=== PATIENT | male | born 1950 | race Caucasian/White ===

== ENCOUNTER → 2019-12-14 08:49 | Outpatient (BNVA) | payer MEDICARE, SELFPAY | PROVIDERS: PCP Nurse Practitioner Family; Referring Provider Nurse Practitioner Family; Visit Provider Internal Medicine Cardiovascular Disease | DX: Z76.89 Persons encountering health services in other specified circumstances (principal) ==

== ENCOUNTER 2019-12-15 08:25 | Outpatient (REF) | payer MEDICARE, SELFPAY | END 2019-12-15 08:26 | disposition home or self-care (01) | LOC: HO.CT 08:25 | PROVIDERS: Visit Provider Internal Medicine Cardiovascular Disease | DX: Z13.89 Encounter for screening for other disorder (principal) ==

== ENCOUNTER 2019-12-15 09:50 | Outpatient (REF) | payer MEDICARE, SELFPAY ==
[2019-12-15 12:02] LABS: Blood Urea Nitrogen 22 mg/dL (9-16); Estimated Glomerular Filt Rate > 60
== END 2019-12-15 09:51 | disposition home or self-care (01) ==
LOC: HO.HMGCLDS 09:50
PROVIDERS: PCP Nurse Practitioner Family; Visit Provider Radiology Diagnostic Radiology
DX: Z13.89 Encounter for screening for other disorder (principal)
CPT/HCPCS: 82565; 84520

== ENCOUNTER → 2019-12-15 11:21 | Outpatient (REF) | payer MEDICARE, SELFPAY ==
--- NOTE | 2019-12-15 11:59 | ECG_ITS ---
Hook-up date: 2019-12-14 09:07:00 Duration: 25:50:00 Test Indications: TACHYCARDIA Medications: [id number] QRS complexes 667 Ventricular ectopics which represent <1 % of total QRS comp. 4 Supraventricular ectopics which represent <1 % of total QRS comp. * Paced QRS complexs which represent % of total QRS comp. VENTRICULAR ECTOPY 659 Isolated 0 Bigeminal Cycles 4 Couplets 0 Runs 0 Beats in Runs * Beats LONGEST at * BPM at :: -- * Beats FASTEST at * BPM at :: -- SUPRAVENTRICULAR ECTOPY 4 Isolated 0 Couplets 0 Runs 0 Beats in Runs * Beats LONGEST at * BPM at :: -- * Beats FASTEST at * BPM at :: -- HEART RATES 66 MIN at 04:35:39 2019-12-15 92 AVG 142 MAX at 20:13:15 2019-12-14 LONGEST RR 1.4080 secs at 04:35:36 2019-12-15 S-T LEVELS Channel 1 - 128 mm at 09:07:00 2019-12-14 - 128 mm at 09:07:00 2019-12-14 Channel 2 - 128 mm at 09:07:00 2019-12-14 - 128 mm at 09:07:00 2019-12-14 Channel 3 - 128 mm at 02:82:61 -- - 128 mm at 02:82:61 Underlying rhythm is sinus; Average ventricular rate 92/min; range 66-142/min; About 20% of the time, ventricular rate >100/min; Occasional ventricular ectopy; Patient diary not available for review. Referred By: Broderick Wang Overread By: IVET BRUMFIELD
== END ==
LOC: HO.CARD 11:21
PROVIDERS: Visit Provider Internal Medicine Cardiovascular Disease
DX: R00.0 Tachycardia, unspecified (principal)
CPT/HCPCS: 82565; 84520; 93225; 93226

== ENCOUNTER 2019-12-21 08:18 | Outpatient (REF) | payer MEDICARE, SELFPAY ==
--- NOTE | 2019-12-21 | CT_ITS ---
EXAMINATION: CT ANGIOGRAPHY LEGS WITH RUNOFF Interventional Radiologist: Zain Vincent M.D., F.S.I.R., F.A.C.R. CLINICAL INFORMATION: This is a 69-year-old male with abnormal ankle-brachial indices measuring 0.80 on the right and 0.82 on the left. COMPARISON: None TECHNIQUE: Routine abdominal aorta and lower extremity runoff CTA protocol with contrast was performed. 100 mL of Omnipaque 350 was administered. The images were reviewed and postprocessed on a dedicated 3-D workstation. Images were evaluated on an independent dedicated 3-D workstation and 3-D images were reconstructed with concurrent radiologist supervision and subsequently interpreted. This CT examination was performed using dose optimization techniques as appropriate, variously including the following: *Automated exposure control *Adjustment of mA and/or kV according to patient size (this includes techniques or standardized protocols for targeted exams where dose is matched to indication/reason for exam; i.e. extremities or head) *Use of iterative reconstruction technique DLP: 1033 mGy-cm. COMPARISON: Comparison is made to the noninvasive studies which demonstrate possible inflow disease. No outflow disease was demonstrated. FINDINGS: Vascular: 1. Mesenteric Arteries: There is less than 30% narrowing in the proximal celiac trunk. There is less than 30% narrowing the proximal superior mesenteric artery. There is 50% narrowing at the origin of the inferior mesenteric artery. 2. Renal Arteries: There are single bilateral renal arteries with less than 30% narrowing. The renal veins appear patent. 3. Infrarenal Abdominal Aorta :The proximal infrarenal aorta appears to be patent. There is diffuse calcified atherosclerotic disease in the distal abdominal aorta with less than 30% narrowing. 4. Common iliac arteries: There is heavy calcification at the bilateral common iliac arteries with likely bilateral hemodynamically significant 75% stenoses. The presence of the calcification decreases the sensitivity of examination. 5. Internal iliac arteries: There is diffuse moderate atherosclerotic disease throughout the hypogastric arteries bilaterally.. 5. Right Lower Extremity: External iliac artery: No hemodynamically significant stenosis. Common femoral artery: There is heavy calcification throughout the right common femoral artery with 50% narrowing. The profunda femoral artery appears small but patent. Superficial femoral artery: There is moderate calcification with 30% narrowing the proximal right superficial femoral artery. There is moderate calcification with probable 50-75% narrowing in the distal right superficial femoral artery. Popliteal artery: There is heavy calcification throughout the popliteal artery with probable 50% narrowing. Runoff vessels: There is scattered calcification throughout the tibial vessels. However, three-vessel runoff is seen throughout the right calf. It is difficult to reconstruct the distal portions of the tibial vessels. The posterior tibial artery is seen down to the level the ankle. The anterior tibial artery is seen down to the level of the distal calf. 6. Left lower extremity: External iliac artery: No hemodynamically significant stenosis. Common femoral artery: There is heavy calcific patient throughout the left common femoral artery with 50% narrowing. Superficial femoral artery: There is mild calcification with 30% narrowing the proximal left superficial femoral artery. There is heavy calcification in the distal left superficial femoral artery with probable 50% narrowing. Again, the presence of the consultation decreases the sensitivity of the study.The profunda femoral artery appears patent. Popliteal artery: There is calcification seen throughout the popliteal artery with 50% narrowing. Runoff vessels: Three-vessel runoff is seen through the left calf down to the level the ankle. The posterior tibial artery is seen down to the level the foot. The proximal anterior tibial artery appears to be patent. The proximal posterior tibial artery appears to be patent. The peroneal artery is seen to the mid calf. Nonvascular: LUNG BASES: Emphysematous changes are noted in the lower lung vance bilaterally. No large pleural effusion is seen. LIVER, GALLBLADDER, AND BILIARY TREE: There is a 1 cm low-density area within segment 2 of the liver. There is a 1 cm low-density area in segment 4A of the liver. These are too small to characterize by CT scan. No ductal dilatation is seen. . The gallbladder is unremarkable with no evidence of radiopaque gallstones, gallbladder wall thickening, or obvious pericholecystic inflammatory changes. PANCREAS: Unremarkable. SPLEEN: There is a nonspecific hyperdense 1 cm mass within the spleen. There is no precontrast images to see if this is calcification or an enhancing mass. This would be best evaluated with either a pre and post contrast-enhanced scan of the spleen or an ultrasound of the spleen. ADRENAL GLANDS: Unremarkable. KIDNEYS AND URETERS: The kidneys are normal in size, shape, and attenuation. No hydronephrosis, hydroureter, or calculi seen. No perinephric stranding BLADDER: There is a significant impression on the posterior wall of the urinary bladder by a prominent prostate gland. GASTROINTESTINAL TRACT: There is diverticulosis without evidence of diverticulitis. The appendix appears within normal limits. ABDOMINAL WALL: Multiple surgical clips are seen in the right groin region which likely represents a previous hernia repair. No hernias are seen on the current study. LYMPH NODES: Normal. PELVIC VISCERA: Unremarkable. OSSEOUS STRUCTURES: Degenerative disc disease changes are noted throughout the thoracolumbar spine. CT/CT angio abd aorta runoff IMPRESSION: 1. There are subcentimeter low-density masses within the left lobe of liver. These may represent cysts but are too small to characterize by CT scan. I recommend ultrasound evaluation. 2. There are probable hemodynamically significant stenoses within the bilateral common iliac arteries. 3. There appear to be moderate stenoses in the proximal distal superficial femoral arteries bilaterally. This disease may extend into the popliteal arteries bilaterally. 4. There is a 1 cm hyperechoic mass seen within the spleen. I recommend ultrasound evaluation.
[2019-12-21] MEDS: iohexoL 350 MG/ML 100 ML INFUS..BTL IV (09:28)
== END 2019-12-21 08:19 | disposition home or self-care (01) ==
LOC: HO.CT 08:18
PROVIDERS: PCP Nurse Practitioner Family; Visit Provider Internal Medicine Cardiovascular Disease
DX: I73.9 Peripheral vascular disease, unspecified (principal); R93.6 Abnormal findings on diagnostic imaging of limbs
CPT/HCPCS: 75635

== ENCOUNTER → 2020-01-16 14:49 | Outpatient (BNVA) | payer MEDICARE, SELFPAY | PROVIDERS: PCP Nurse Practitioner Family; Referring Provider Nurse Practitioner Family; Visit Provider Internal Medicine Cardiovascular Disease | DX: R00.0 Tachycardia, unspecified (principal); I73.9 Peripheral vascular disease, unspecified; I10 Essential (primary) hypertension; I35.0 Nonrheumatic aortic (valve) stenosis; R29.898 Other symptoms and signs involving the musculoskeletal system; Z79.82 Long term (current) use of aspirin | CPT/HCPCS: 93005; 99202 ==

== ENCOUNTER 2020-01-17 08:13 | Outpatient (REF) | payer MEDICARE, SELFPAY ==
[2020-01-17 16:39] LABS: Hematocrit 49.8 % (42-52); Hemoglobin 15.2 g/dl (14.0-18.0); Mean Corpuscular HGB Conc 30.5 g/dl (31.0-36.0); Mean Corpuscular Hemoglobin 26.6 pg (27.0-33.0); Mean Corpuscular Volume 87.1 fL (80-98); Mean Platelet Volume 10.6 fL (9.4-12.4); Platelet Count 286 X10*3/uL (160-400); Red Blood Count 5.72 X10*6/uL (4.60-5.80); Red Cell Distribution Width 15.4 % (11.0-16.0); White Blood Count 11.8 X10*3/uL (4.8-10.8)
[2020-01-17 16:48] LABS: Prothrombin Time 12.2 SEC (10.8-13.0)
[2020-01-17 17:06] LABS: Anion Gap 15 (12-20); Blood Urea Nitrogen 21 mg/dL (9-16); Calcium 8.8 mg/dL (8.4-10.2); Carbon Dioxide 24 mmol/L (22-29); Chloride 105 mmol/L (96-108); Estimated Glomerular Filt Rate > 60; Glucose Random 98 mg/dL (60-115); Potassium 4.5 mmol/l (3.3-5.1); Sodium 139 mmol/L (135-145)
== END 2020-01-17 08:14 | disposition home or self-care (01) ==
LOC: CF 08:13
PROVIDERS: Internal Medicine Cardiovascular Disease; PCP Nurse Practitioner Family; Referring Provider Nurse Practitioner Family; Visit Provider Internal Medicine Cardiovascular Disease
DX: I73.9 Peripheral vascular disease, unspecified (principal); R29.898 Other symptoms and signs involving the musculoskeletal system; I35.0 Nonrheumatic aortic (valve) stenosis; R00.0 Tachycardia, unspecified
CPT/HCPCS: 36415; 80048; 85027; 85610; 99212

== ENCOUNTER → 2020-02-02 09:44 | Outpatient (BNVA) | payer MEDICARE, SELFPAY | PROVIDERS: PCP Nurse Practitioner Family; Visit Provider Internal Medicine Cardiovascular Disease | DX: I73.9 Peripheral vascular disease, unspecified (principal); I77.0 Arteriovenous fistula, acquired; I35.0 Nonrheumatic aortic (valve) stenosis; R29.898 Other symptoms and signs involving the musculoskeletal system | CPT/HCPCS: 99212 ==

== ENCOUNTER 2020-02-29 12:55 | Outpatient (REF) | payer MEDICARE, SELFPAY ==
--- NOTE | 2020-02-29 12:58 | CT_ITS ---
EXAMINATION: CT ABDOMEN AND PELVIS WITHOUT CONTRAST CLINICAL INFORMATION: Unilateral inguinal hernia. COMPARISON: None TECHNIQUE: Multidetector volumetric imaging was performed from the superior aspect of the liver through the pubic symphysis. Sagittal and coronal reformatted images were obtained on the technologist's workstation. This CT examination was performed using dose optimization techniques as appropriate, variously including the following: *Automated exposure control *Adjustment of mA and/or kV according to patient size (this includes techniques or standardized protocols for targeted exams where dose is matched to indication/reason for exam; i.e. extremities or head) *Use of iterative reconstruction technique DLP: 857 mGy-cm FINDINGS: LUNG BASES: There is minimal atelectasis or scarring in the lingula. Otherwise lung bases are clear. The heart size is normal. There is mild mural thickening distal esophagus. LIVER, GALLBLADDER, AND BILIARY TREE: The liver is normal size, shape and position. There are two 9 mm hypodense lesions in the left hepatic lobe. No additional lesions seen. There is no intrahepatic ductal dilatation. The gallbladder is unremarkable with no evidence of radiopaque gallstones, gallbladder wall thickening, or obvious pericholecystic inflammatory changes. PANCREAS: Unremarkable. SPLEEN: No mass is seen in the spleen as was noted on the previous CTA abdomen and pelvis exam. ADRENAL GLANDS: Unremarkable. KIDNEYS AND URETERS: The kidneys are normal in size, shape, and attenuation. No hydronephrosis, hydroureter, or calculi seen. No perinephric stranding. BLADDER: The bladder is nondistended. GASTROINTESTINAL TRACT: There is diffuse sigmoid colon diverticulosis without diverticulitis. The small bowel loops are normal caliber. Appendix is normal caliber. There is no inflammatory process, free air or free fluid. ABDOMINAL WALL: There is a right inguinal hernia repair with mesh in place LYMPH NODES: Normal. VASCULAR: Unremarkable. PELVIC VISCERA: Unremarkable. OSSEOUS STRUCTURES: There are degenerative disc changes with vacuum disc phenomena L2-L3, L4-L5 and L5-S1 disc levels. No lytic process or fracture seen. There is moderate ventral and posterior spondylosis at the L5-S1 disc level. CT/CT abdomen pelvis wo con IMPRESSION: Small hypodense liver lesions most likely cysts. These are stable. Moderate constipation. Diffuse sigmoid and scattered rest of colon diverticulosis without diverticulitis. Mural thickening distal esophagus likely small hiatal hernia or reflux disease.
[2020-02-29] MEDS: Barium Sulfate Oral (Mocha) 450 ML ORAL.SUSP 900 ML PO (16:01)
== END 2020-02-29 12:56 | disposition home or self-care (01) ==
LOC: HO.CT 12:55
PROVIDERS: PCP Nurse Practitioner Family; Visit Provider Nurse Practitioner Family
DX: K40.91 Unilateral inguinal hernia, without obstruction or gangrene, recurrent (principal)
CPT/HCPCS: 74176

== ENCOUNTER → 2020-03-05 08:15 | Outpatient (BNVA) | payer MEDICARE, SELFPAY | PROVIDERS: PCP Nurse Practitioner Family; Visit Provider Internal Medicine Cardiovascular Disease | DX: R00.0 Tachycardia, unspecified (principal); I77.0 Arteriovenous fistula, acquired; I35.0 Nonrheumatic aortic (valve) stenosis; Z79.82 Long term (current) use of aspirin | CPT/HCPCS: 93005; 99212 ==

== ENCOUNTER 2020-03-14 12:21 | Outpatient (REF) | payer MEDICARE, SELFPAY ==
--- NOTE | 2020-03-14 12:24 | US_ITS ---
EXAMINATION: RIGHT LOWER EXTREMITY DUPLEX DOPPLER ARTERIAL ULTRASOUND STUDY. CLINICAL INFORMATION: Arteriovenous fistula COMPARISON: November 24, 2019 TECHNIQUE: Real-time ultrasound and Doppler techniques (integrating B-mode 2D vascular images, Doppler spectral analysis and color flow Doppler imaging) were utilized to interrogate the right lower extremity. FINDINGS: No aneurysm or pseudoaneurysm is identified. Insight of angiography access there is no evidence of arteriovenous fistula with normal venous waveform and no pulsatility within the common femoral vein and superficial femoral vein. There is calcified plaque seen throughout the arterial system. Within the right iliac artery has a triphasic waveform with peak systolic velocity of 200 cm/s. The right common femoral artery has a biphasic waveform with peak systolic velocity of 173 cm/s. The profunda femoral artery has a biphasic waveform with peak systolic velocity of 76 cm/s. The proximal superficial femoral artery has a biphasic waveform with peak systolic velocity of 189 cm/s. The proximal superficial femoral artery has a biphasic waveform with peak systolic velocity of 194 cm/s. The mid superficial femoral artery has a biphasic waveform with peak systolic velocity of 126 cm/s. The distal superficial femoral artery has a biphasic waveform with peak systolic velocity of 164 cm/s. The proximal popliteal artery has a biphasic waveform with peak systolic velocity of 116 cm/s. The popliteal artery has a biphasic waveform with peak systolic velocity of 92 cm/s. The proximal posterior tibial artery has a biphasic waveform with peak systolic velocity of 42 cm/s. The mid posterior tibial artery has a monophasic waveform with peak systolic velocity of 41 cm/s. US/US arterial duplex LE RT IMPRESSION: No evidence of right groin pseudoaneurysm or arteriovenous fistula. Findings consistent with inflow disease and below the knee atherosclerotic disease.
== END 2020-03-14 12:22 | disposition home or self-care (01) ==
LOC: HO.US 12:21
PROVIDERS: Visit Provider Internal Medicine Cardiovascular Disease
DX: I77.2 Rupture of artery (principal)
CPT/HCPCS: 93926

== ENCOUNTER → 2020-04-19 08:28 | Outpatient (BNVA) | payer MEDICARE, SELFPAY | PROVIDERS: PCP Nurse Practitioner Family; Visit Provider Internal Medicine Cardiovascular Disease | DX: Z13.89 Encounter for screening for other disorder (principal) | CPT/HCPCS: Q3014 ==

== ENCOUNTER 2020-07-19 09:46 | Outpatient (REF) | payer MEDICARE, SELFPAY ==
[2020-07-19 12:00] LABS: Estimated Average Glucose 131 mg/dL; Hemoglobin A1c % 6.2 %
[2020-07-19 12:16] LABS: Alanine Aminotransferase 34 U/L (0-40); Albumin Level 4.1 g/dL (3.5-5.0); Alkaline Phosphatase 97 U/L (39-117); Anion Gap 16 (12-20); Aspartate Amino Transferase 25 U/L (5-37); Bilirubin Total 0.7 mg/dL (0.0-1.0); Blood Urea Nitrogen 15 mg/dL (9-16); Calcium 9.2 mg/dL (8.4-10.2); Carbon Dioxide 24 mmol/L (22-29); Chloride 105 mmol/L (96-108); Cholesterol 117 mg/dL; Estimated Glomerular Filt Rate > 60; Glucose Fasting 118 mg/dL (60-99); HDL Cholesterol 35 mg/dL; LDL Cholesterol Calculated 40 mg/dl; Sodium 141 mmol/L (135-145); Total Protein 6.8 g/dL (6.5-8.0); Triglycerides 210 mg/dL
[2020-07-19 12:19] LABS: Creatinine Urine 282.31 mg/dL; Microalbum/Creatinine Ratio Ur 9.2 ug/mg cr; TSH reflex Free T4 0.79 uIU/mL (0.32-4.0)
== END 2020-07-19 09:47 | disposition home or self-care (01) ==
LOC: HO.HMGCLDS 09:46
PROVIDERS: PCP Nurse Practitioner Family; Visit Provider Nurse Practitioner Family
DX: E11.9 Type 2 diabetes mellitus without complications (principal)
CPT/HCPCS: 36415; 80053; 80061; 82043; 83036; 84443

== ENCOUNTER 2020-09-14 08:27 | Outpatient (REF) | payer MEDICARE, SELFPAY ==
--- NOTE | ~2020-09-14 | XR_ITS ---
EXAMINATION: XR CERVICAL SPINE CLINICAL INFORMATION: Neck pain. COMPARISON: None TECHNIQUE: 6 views of the cervical spine, inclusive of flexion and extension views, were obtained. FINDINGS: There is normal cervical lordosis. The vertebral heights and alignment are normal. There is mild loss of C4-C5 disc height with posterior spondylosis at the C4-C5 disc level. There is no visible acute fracture, dislocation or subluxation seen. There is mild narrowing of bilateral neural foramina at C3-C4, C4-C5 disc levels. Mild facet joint hypertrophy. No visible acute fracture or dislocation seen. The prevertebral soft tissues are normal. XR/XR cervical spine 5V IMPRESSION: Degenerative disc changes C4-C5 disc level with posterior spondylosis. No visible acute fracture or dislocation seen. There is bilateral narrowing of neural foramina at C3-C4 and C4-C5 disc levels.
== END 2020-09-14 08:28 | disposition home or self-care (01) ==
LOC: HO.HMGCX 08:27
PROVIDERS: PCP Nurse Practitioner Family; Visit Provider Nurse Practitioner Family
DX: M50.90 Cervical disc disorder, unspecified, unspecified cervical region (principal)
CPT/HCPCS: 72050

== ENCOUNTER → 2020-10-12 08:45 | Outpatient (BNVA) | payer MEDICARE, SELFPAY | PROVIDERS: PCP Nurse Practitioner Family; Referring Provider Nurse Practitioner Family; Visit Provider Internal Medicine Cardiovascular Disease | DX: R00.0 Tachycardia, unspecified (principal); I35.0 Nonrheumatic aortic (valve) stenosis; R06.02 Shortness of breath; R53.83 Other fatigue; E11.9 Type 2 diabetes mellitus without complications; E78.5 Hyperlipidemia, unspecified; Z98.890 Other specified postprocedural states; Z79.82 Long term (current) use of aspirin; Z79.84 Long term (current) use of oral hypoglycemic drugs; Z79.899 Other long term (current) drug therapy | CPT/HCPCS: 99212 ==

== ENCOUNTER → 2020-11-21 09:14 | Outpatient (REF) | payer MEDICARE, SELFPAY ==
--- NOTE | 2020-11-21 09:16 | CA_ITS ---
Transthoracic Echocardiogram Patient (Last, First, Middle): Cody Rebollar W Gender: Male Date of : 1950 Age: 70 Procedure Date: 11/21/2020 Procedure Type: Transthoracic Echocardiogram Location: OP Height: 182.88 cm Weight: 113.4 kg BSA: 2.34 m2 Heart Rate: bpm BP: 128 / 80 mmHg Sternman: Referring MD: Broderick Wang MD Bread Packer: Broderick Wang MD Symptoms: I35.0 - Nonrheumatic aortic (valve) stenosis Study Quality: Fair ECG Rhythm: Sinus Conclusions: - 1. Normal LV systolic function with mild LVH with grade 1 diastolic dysfunction 2. Mild to moderate aortic stenosis next 3. Normal RV systolic pressure 4. No gross pericardial effusion Findings Left Ventricle Normal left ventricular size and systolic function. There is mildly increased left ventricular wall thickness. The visually estimated ejection fraction is between 60-65%. Spectral Doppler is indicative of an impaired relaxation filling pattern. E/E prime ratio is <8, consistent with normal filling pressures. Evidence suggests grade I (mild) diastolic dysfunction. Right Ventricle Normal right ventricular cavity size and systolic function. Atria The left atrium is normal in size. Interatrial shunt cannot be excluded. The right atrium was not well visualized. Aortic Valve The aortic valve was not well visualized. There is mild calcification of the aortic valve. There is moderate thickening of the aortic valve. There is mild to moderate aortic valve stenosis. The peak aortic gradient is 25 mmHg.The mean gradient is 12 mmHg. There is no aortic valve regurgitation. Mitral Valve The mitral valve was not well visualized. There is trace mitral valve regurgitation. There is no mitral valve stenosis. Pulmonic Valve The pulmonic valve was not well visualized. Tricuspid Valve Likely normal tricuspid valve structure and function. There is trace tricuspid valve regurgitation. The right ventricular systolic pressure is normal. The right ventricular systolic pressure is 14 mmHg. Normal right atrial pressure. There is no evidence of pulmonary hypertension. Great Vessels The aorta was not well visualized. The pulmonary artery was not well visualized. Venous The inferior vena cava is normal in size and collapses greater than 50% with inspiration. Pericardium/Pleural There is no evidence of pericardial effusion. Prior Study Comparison No significant change compared to prior study. Measurements 2D Linear Measurements IVSd: 1.25 0.6-0.9/0.6-1.0 cm LVIDd: 5.29 3.9-5.3/4.2-5.9 cm LVIDd Index: 2.26 2.4-3.2/2.2-3.1 cm/m2 LVIDs: 3.25 2.0-3.6 cm LVPWd: 1.24 0.7-1.1 cm Ao Root: 3.10 2.1-3.5 cm LA Diam: 4.90 2.7-3.8/3.0-4.0 cm LAIDs Index: 2.09 1.5-2.3 cm/m2 LV Mass: 335.79 67-162/88-224 g LV Mass Index: 143.50 43-95/49-115 g/m2 LVOT Diam: 2.30 3.0+(-)1.3 cm Mitral Valve MV Pk E: 0.59 MV PK A: 0.83 MV Decel Time: 227.00 E/A: 0.70 E'Lateral: 6.53 E'Medial: 6.74 E/E' Med: 8.70 E/E' Lat: 9.00 PHT: 67.00 MVA PHT: 3.28 Decel [place]: 2.58 Aortic Valve AoV Pk Jose: 2.52 AoV Mn Jose: 1.52 AoV VTI: 0.56 AoV Pk Grad: 25.00 Aov Mn Grad: 12.00 ANA MARIA Cont.VTI: 1.51 LVOT LVOT Pk Jose: 0.88 LVOT Mn Jose: 0.60 LVOT VTI: 0.20 LVOT Pk Grad: 3.00 LVOT Mn Grad: 2.00 LVOT Diam: 2.30 LVOT Area: 4.15 Diastolic Function MV Pk E: 0.59 MV Pk A: 0.83 E/A: 0.70 E'Medial: 6.74 E/E' Med: 8.70 E' Laterial: 6.53 E/E' Lat: 9.00 Tricuspid Valve TR Pk Jose: 1.66 TR Pk Grad: 11.00 RA Press: 3.00 RVSP: 14.00 Great Vessels Aorta Ao Root-2D: 3.10 2.0-3.7 cm Ao Asc: 2.80 2.1-3.4 cm Pulmonary Valve PV Pk Jose: 1.05 Peak PV Grad: 4.00 Updated in Other Vendor System with Status of Final Broderick Wang MD electronically signed on 11/21/2020 12:58:11 PM with status of Final
== END ==
LOC: HO.CARD 09:14
PROVIDERS: PCP Nurse Practitioner Family; Visit Provider Internal Medicine Cardiovascular Disease
DX: I35.0 Nonrheumatic aortic (valve) stenosis (principal)
CPT/HCPCS: 93306

== ENCOUNTER 2021-04-23 07:36 | Outpatient (REF) | payer MEDICARE, SELFPAY ==
[2021-04-23 11:37] LABS: MANUAL DIFF FLAG NO
[2021-04-23 11:42] LABS: Appearance Urine TURBID; Color Urine YELLOW; Glucose Urine UA NEG (NEG); Leukocyte Esterase Urine NEG (NEG); Nitrite Urine NEG (NEG); Specific Gravity - Urine >= 1.030 (1.005-1.025); UACC Culture Trigger NO; Urine Blood TRACE (NEG); Urine Ketones NEG (NEG); Urine Protein 2+ MG/DL (NEG-TRACE)
[2021-04-23 11:46] LABS: Basophils Absolute Auto 0.1 X10*3/uL (0.0-0.2); Basophils Percent Auto 0.8 % (0-2); Eosinophils Absolute Auto 0.2 X10*3/uL (0.0-0.4); Eosinophils Percent Auto 1.9 % (0-4); Hematocrit 53.4 % (42.0-52.0); Hemoglobin 16.6 g/dl (14.0-18.0); Imm Gran Abs Auto 0.05 X10*3/uL (0.00-0.03); Imm Gran Pct Auto 0.4 % (0.0-0.4); Lymphocytes Absolute Auto 2.7 X10*3/uL (1.2-4.9); Lymphocytes Percent Auto 20.9 % (20-40); Mean Corpuscular HGB Conc 31.1 g/dl (31.0-36.0); Mean Corpuscular Hemoglobin 27.6 pg (27.0-33.0); Mean Corpuscular Volume 88.9 fL (80.0-98.0); Mean Platelet Volume 10.9 fL (9.4-12.4); Monocytes Absolute Auto 0.9 X10*3/uL (0.1-1.2); Monocytes Percent Auto 7.1 % (2-11); Neutrophils Absolute Auto 8.8 x10*3/uL (2.0-8.3); Neutrophils Percent Auto 68.9 % (45-73); Platelet Count 252 X10*3/uL (160-400); Red Blood Count 6.01 X10*6/uL (4.60-5.80); Red Cell Distribution Width 14.1 % (11.0-16.0); White Blood Count 12.7 X10*3/uL (4.8-10.8)
[2021-04-23 11:55] LABS: Alanine Aminotransferase 14 U/L (0-40); Albumin Level 4.1 g/dL (3.5-5.0); Alkaline Phosphatase 103 U/L (39-117); Anion Gap 16 (12-20); Aspartate Amino Transferase 15 U/L (5-37); Bilirubin Total 0.5 mg/dL (0.0-1.0); Blood Urea Nitrogen 27 mg/dL (9-16); Calcium 9.2 mg/dL (8.4-10.2); Carbon Dioxide 26 mmol/L (22-29); Chloride 102 mmol/L (96-108); Cholesterol 109 mg/dL; Estimated Glomerular Filt Rate > 60; Glucose Fasting 144 mg/dL (60-99); HDL Cholesterol 32 mg/dL; LDL Cholesterol Calculated 42 mg/dl; Potassium 4.1 mmol/L (3.3-5.1); Sodium 140 mmol/L (135-145); Total Protein 7.1 g/dL (6.5-8.0); Triglycerides 178 mg/dL
[2021-04-23 11:59] LABS: Estimated Average Glucose 143 mg/dL; Hemoglobin A1c % 6.6 %
[2021-04-23 12:09] LABS: Amorphous Sediment Urine 3+ /LPF; RBC Urine 0 /HPF (0); WBC Urine 0 /HPF (0-4)
[2021-04-23 12:19] LABS: Prostate Specific Antigen Scr 0.87 ng/mL (<0.05-4.0); TSH reflex Free T4 1.15 uIU/mL (0.32-4.0)
== END 2021-04-23 07:37 | disposition home or self-care (01) ==
LOC: HO.HMGCLDS 07:36
PROVIDERS: Visit Provider Nurse Practitioner Family
DX: Z12.5 Encounter for screening for malignant neoplasm of prostate (principal); E11.9 Type 2 diabetes mellitus without complications; I10 Essential (primary) hypertension; R29.898 Other symptoms and signs involving the musculoskeletal system
CPT/HCPCS: 36415; 80053; 80061; 81001; 83036; 84153; 84443; 85025

== ENCOUNTER 2021-05-06 11:02 | Outpatient (REF) | payer MEDICARE, SELFPAY ==
[2021-05-06 13:47] LABS: Urine Cytology See Pathology rpt
[2021-05-06 14:04] LABS: Appearance Urine TURBID; Color Urine YELLOW; Glucose Urine UA NEG (NEG); Leukocyte Esterase Urine NEG (NEG); Nitrite Urine NEG (NEG); Specific Gravity - Urine >= 1.030 (1.005-1.025); Urine Blood NEG (NEG); Urine Ketones NEG (NEG); Urine Protein 1+ MG/DL (NEG-TRACE)
[2021-05-06 14:18] LABS: Amorphous Sediment Urine 4+ /LPF; RBC Urine 0 /HPF (0); Squamous Epithelial Cell Urine TRACE /LPF; WBC Urine 0 /HPF (0-4)
== END 2021-05-06 11:03 | disposition home or self-care (01) ==
LOC: HO.HMGCLDS 11:02
PROVIDERS: PCP Nurse Practitioner Family; Visit Provider Nurse Practitioner Family
DX: R31.29 Other microscopic hematuria (principal)
CPT/HCPCS: 81001; 87086; 88112

== ENCOUNTER → 2021-09-05 14:27 | Outpatient (BNVA) | payer MEDICARE, SELFPAY | PROVIDERS: PCP Nurse Practitioner Family; Visit Provider Surgery | DX: L72.3 Sebaceous cyst (principal); L08.9 Local infection of the skin and subcutaneous tissue, unspecified; I35.0 Nonrheumatic aortic (valve) stenosis; E11.9 Type 2 diabetes mellitus without complications | CPT/HCPCS: 10060; 87071; 87077; 87186; 87205; 99202 ==

== ENCOUNTER 2021-09-05 15:57 | Outpatient (REF) | payer MEDICARE, SELFPAY | END 2021-09-05 15:58 | disposition home or self-care (01) | LOC: HO.LNP 15:57 | PROVIDERS: Visit Provider Surgery | DX: Z13.89 Encounter for screening for other disorder (principal) | CPT/HCPCS: 87071; 87205 ==

== ENCOUNTER 2021-09-16 08:54 | Outpatient (REF) | payer MEDICARE, SELFPAY ==
--- NOTE | ~2021-09-16 | XR_ITS ---
EXAMINATION: XR KNEE, RIGHT CLINICAL INFORMATION: Pain COMPARISON: None TECHNIQUE: AP and lateral views of the right knee. FINDINGS: No acute fracture or dislocation. Small tricompartmental marginal osteophytes. Mild medial and lateral tibiofemoral compartment joint space narrowing, greater medially. No joint effusion. Vascular calcifications. XR/XR knee RT 2V IMPRESSION: No acute findings. Degenerative changes as described.
[2021-09-16 11:17] LABS: MANUAL DIFF FLAG NO
[2021-09-16 11:23] LABS: Basophils Absolute Auto 0.1 X10*3/uL (0.0-0.2); Basophils Percent Auto 0.9 % (0-2); Eosinophils Absolute Auto 0.2 X10*3/uL (0.0-0.4); Eosinophils Percent Auto 2.7 % (0-4); Hematocrit 51.1 % (42.0-52.0); Hemoglobin 15.9 g/dl (14.0-18.0); Imm Gran Abs Auto 0.03 X10*3/uL (0.00-0.03); Imm Gran Pct Auto 0.4 % (0.0-0.4); Lymphocytes Absolute Auto 1.4 X10*3/uL (1.2-4.9); Lymphocytes Percent Auto 17.7 % (20-40); Mean Corpuscular HGB Conc 31.1 g/dl (31.0-36.0); Mean Corpuscular Hemoglobin 27.6 pg (27.0-33.0); Mean Corpuscular Volume 88.6 fL (80.0-98.0); Mean Platelet Volume 10.8 fL (9.4-12.4); Monocytes Absolute Auto 0.6 X10*3/uL (0.1-1.2); Monocytes Percent Auto 7.7 % (2-11); Neutrophils Absolute Auto 5.6 x10*3/uL (2.0-8.3); Neutrophils Percent Auto 70.6 % (45-73); Platelet Count 226 X10*3/uL (160-400); Red Blood Count 5.77 X10*6/uL (4.60-5.80); White Blood Count 7.9 X10*3/uL (4.8-10.8)
[2021-09-16 11:35] LABS: Estimated Average Glucose 140 mg/dL; Hemoglobin A1c % 6.5 %
[2021-09-16 11:48] LABS: Alanine Aminotransferase 15 U/L (0-40); Albumin Level 4.1 g/dL (3.5-5.0); Alkaline Phosphatase 104 U/L (39-117); Anion Gap 13 (12-20); Aspartate Amino Transferase 15 U/L (5-37); Bilirubin Total 0.5 mg/dL (0.0-1.0); Blood Urea Nitrogen 14 mg/dL (9-16); Calcium 8.6 mg/dL (8.4-10.2); Carbon Dioxide 23 mmol/L (22-29); Chloride 106 mmol/L (96-108); Cholesterol 113 mg/dL; Estimated Glomerular Filt Rate > 60; Glucose Fasting 152 mg/dL (60-99); HDL Cholesterol 32 mg/dL; LDL Cholesterol Calculated 49 mg/dl; Potassium 4.4 mmol/L (3.3-5.1); Sodium 138 mmol/L (135-145); Triglycerides 160 mg/dL
[2021-09-16 12:20] LABS: Creatinine Urine 249.75 mg/dL; Microalbum/Creatinine Ratio Ur 8.4 ug/mg cr
== END 2021-09-16 08:55 | disposition home or self-care (01) ==
LOC: HO.HMGCLDS 08:54
PROVIDERS: Visit Provider Nurse Practitioner Family
DX: M25.561 Pain in right knee (principal); E11.9 Type 2 diabetes mellitus without complications
CPT/HCPCS: 36415; 73560; 80053; 80061; 82043; 83036; 85025

== ENCOUNTER → 2021-10-14 08:37 | Outpatient (BNVA) | payer MEDICARE, SELFPAY | PROVIDERS: PCP Nurse Practitioner Family; Referring Provider Nurse Practitioner Family; Visit Provider Internal Medicine Cardiovascular Disease | DX: I35.0 Nonrheumatic aortic (valve) stenosis (principal); I73.9 Peripheral vascular disease, unspecified; R00.0 Tachycardia, unspecified | CPT/HCPCS: 93005; 99212 ==

== ENCOUNTER → 2021-10-21 08:11 | Outpatient (BNVA) | payer MEDICARE, SELFPAY | PROVIDERS: PCP Nurse Practitioner Family; Visit Provider Surgery | DX: Z48.817 Encounter for surgical aftercare following surgery on the skin and subcutaneous tissue (principal); Z87.2 Personal history of diseases of the skin and subcutaneous tissue | CPT/HCPCS: 99212 ==

== ENCOUNTER → 2021-11-15 08:25 | Outpatient (REF) | payer MEDICARE, SELFPAY ==
--- NOTE | 2021-11-15 08:27 | CA_ITS ---
Transthoracic Echocardiogram Patient (Last, First, Middle): Cody Rebollar W Gender: Male Date of : 1950 Age: 71 Procedure Date: 11/15/2021 Procedure Type: Transthoracic Echocardiogram Location: OP Height: 180.34 cm Weight: 115.67 kg BSA: 2.34 m2 Heart Rate: bpm BP: 124 / 60 mmHg Branch Services Manager: Referring MD: Broderick Wang MD Backrest Assembler: Broderick Wang MD Symptoms: I35.0 - Nonrheumatic aortic (valve) stenosis Study Quality: Fair ECG Rhythm: Sinus Conclusions: - 1. Normal LV systolic function with impaired relaxation filling pattern 2. Jyrj-rh-yebzvwie aortic stenosis 3. Normal RV systolic pressure 4. No gross pericardial effusion Findings Left Ventricle Normal left ventricular size, thickness, and systolic function. The visually estimated ejection fraction is between 60-65%. Regional wall motion abnormalities can not be excluded due to suboptimal endocardial definition. Spectral Doppler is indicative of an impaired relaxation filling pattern. Right Ventricle The right ventricle was not well visualized. There is normal right ventricular systolic function. Atria The left atrium is normal in size. Interatrial shunt cannot be excluded. The right atrium was not well visualized. Aortic Valve The aortic valve was not well visualized. There is mild calcification of the aortic valve. There is mild to moderate aortic valve stenosis. There is no aortic valve regurgitation. Mitral Valve There is mild anterior and posterior mitral leaflet thickening. There is trace mitral valve regurgitation. There is no mitral valve stenosis. Pulmonic Valve The pulmonic valve was not well visualized. Tricuspid Valve The tricuspid valve was not well visualized. There is trace tricuspid valve regurgitation. The right ventricular systolic pressure is normal. The right ventricular systolic pressure is 20 mmHg. There is no evidence of pulmonary hypertension. Great Vessels The aorta was not well visualized. The pulmonary artery was not well visualized. Venous The inferior vena cava is normal in size and collapses greater than 50% with inspiration. Pericardium/Pleural There is no evidence of pericardial effusion. Prior Study Comparison No significant change compared to prior study dated: 11/21/2020. Measurements 2D Linear Measurements IVSd: 1.25 0.6-0.9/0.6-1.0 cm LVIDd: 3.83 3.9-5.3/4.2-5.9 cm LVIDd Index: 1.64 2.4-3.2/2.2-3.1 cm/m2 LVIDs: 2.70 2.0-3.6 cm LVPWd: 1.22 0.7-1.1 cm Ao Root: 3.40 2.1-3.5 cm LA Diam: 5.00 2.7-3.8/3.0-4.0 cm LAIDs Index: 2.14 1.5-2.3 cm/m2 LV Mass: 201.62 67-162/88-224 g LV Mass Index: 86.16 43-95/49-115 g/m2 LVOT Diam: 2.40 3.0+(-)1.3 cm Mitral Valve MV Pk E: 0.70 MV PK A: 0.85 MV Decel Time: 153.00 E/A: 0.80 E'Lateral: 7.72 E'Medial: 11.40 E/E' Med: 6.10 E/E' Lat: 9.00 PHT: 45.00 MVA PHT: 4.89 Decel Long: 4.56 Aortic Valve AoV Pk Jose: 2.59 AoV Mn Jose: 1.75 AoV VTI: 0.58 AoV Pk Grad: 27.00 Aov Mn Grad: 15.00 ANA MARIA Cont.VTI: 1.48 LVOT LVOT Pk Jose: 0.84 LVOT Mn Jose: 0.54 LVOT VTI: 0.19 LVOT Pk Grad: 3.00 LVOT Mn Grad: 1.00 LVOT Diam: 2.40 LVOT Area: 4.52 Diastolic Function MV Pk E: 0.70 MV Pk A: 0.85 E/A: 0.80 E'Medial: 11.40 E/E' Med: 6.10 E' Laterial: 7.72 E/E' Lat: 9.00 Right Ventricle TAPSE (mm): 22.00 TVS' Jose: 12.00 Tricuspid Valve TR Pk Jose: 2.06 TR Pk Grad: 17.00 RA Press: 3.00 RVSP: 20.00 Great Vessels Aorta Ao Root-2D: 3.40 2.0-3.7 cm Pulmonary Valve PV Pk Jose: 1.10 Peak PV Grad: 5.00 Updated in Other Vendor System with Status of Final Broderick Wang MD electronically signed on 11/16/2021 12:10:02 PM with status of Final
== END ==
LOC: HO.CARD 08:25
PROVIDERS: Visit Provider Internal Medicine Cardiovascular Disease
DX: I35.0 Nonrheumatic aortic (valve) stenosis (principal)
CPT/HCPCS: 93306

== ENCOUNTER 2021-12-06 | Outpatient (REF) | payer MEDICARE, SELFPAY ==
--- NOTE | ~2021-12-06 | XR_ITS ---
EXAMINATION: XR KNEE AP STANDING CLINICAL INFORMATION: Pain COMPARISON: Previous x-ray of the right knee August 2021 and left knee May 2014 TECHNIQUE: AP bilateral standing view of the knees and sunrise view of the right knee was obtained. FINDINGS: Right: Bone alignment is normal. No fracture or dislocation is seen. There is mild joint space narrowing at the medial femoral tibial joint. The patellofemoral joint appears normal on the sunrise view. There is soft tissue arterial calcification. Standing AP view of the left knee is unremarkable. XR/XR knee standing BI IMPRESSION: Right knee: Mild degenerative changes at the medial femoral tibial joint.
--- NOTE | ~2021-12-06 | XR_ITS ---
EXAMINATION: XR KNEE AP STANDING CLINICAL INFORMATION: Pain COMPARISON: Previous x-ray of the right knee August 2021 and left knee May 2014 TECHNIQUE: AP bilateral standing view of the knees and sunrise view of the right knee was obtained. FINDINGS: Right: Bone alignment is normal. No fracture or dislocation is seen. There is mild joint space narrowing at the medial femoral tibial joint. The patellofemoral joint appears normal on the sunrise view. There is soft tissue arterial calcification. Standing AP view of the left knee is unremarkable. XR/XR knee RT 1V IMPRESSION: Right knee: Mild degenerative changes at the medial femoral tibial joint.
== END 2021-12-06 00:01 ==
LOC: HO.HOSX
PROVIDERS: Visit Provider Physician Assistant
DX: M17.11 Unilateral primary osteoarthritis, right knee (principal); G62.9 Polyneuropathy, unspecified
CPT/HCPCS: 20610; 73560; 73565; 99202; J1020

== ENCOUNTER 2022-05-12 09:37 | Outpatient (REF) | payer MEDICARE, SELFPAY ==
--- NOTE | ~2022-05-12 | XR_ITS ---
EXAMINATION: XR RIBS, LEFT CLINICAL INFORMATION: Contusion of left frontal wall of the thorax COMPARISON: 11/24/2018 TECHNIQUE: 3 views of the left ribs were obtained. PA view of the chest. FINDINGS: Lungs are clear. No consolidation, pneumothorax, or pleural effusion. The cardiomediastinal silhouette and pulmonary vasculature are normal. Chronic healed left posterior eighth rib fracture. Marker overlies the mid anterolateral left ribs. No acute fracture or cortical disruption identified. Alignment maintained. XR/XR ribs LT min 3V w CXR1V IMPRESSION: Clear lungs. No acute rib abnormality identified. Chronic healed left posterior eighth rib fracture.
[2022-05-12 11:44] LABS: MANUAL DIFF FLAG NO
[2022-05-12 11:49] LABS: Basophils Absolute Auto 0.1 X10*3/uL (0.0-0.2); Basophils Percent Auto 0.7 % (0-2); Eosinophils Absolute Auto 0.2 X10*3/uL (0.0-0.4); Eosinophils Percent Auto 1.4 % (0-4); Hematocrit 53.6 % (42.0-52.0); Hemoglobin 16.4 g/dl (14.0-18.0); Imm Gran Abs Auto 0.05 X10*3/uL (0.00-0.03); Imm Gran Pct Auto 0.5 % (0.0-0.4); Lymphocytes Absolute Auto 1.1 X10*3/uL (1.2-4.9); Lymphocytes Percent Auto 10.7 % (20-40); Mean Corpuscular HGB Conc 30.6 g/dl (31.0-36.0); Mean Corpuscular Hemoglobin 28.2 pg (27.0-33.0); Mean Corpuscular Volume 92.3 fL (80.0-98.0); Monocytes Absolute Auto 0.6 X10*3/uL (0.1-1.2); Monocytes Percent Auto 5.4 % (2-11); Neutrophils Absolute Auto 8.5 x10*3/uL (2.0-8.3); Neutrophils Percent Auto 81.3 % (45-73); Platelet Count 250 X10*3/uL (160-400); Red Blood Count 5.81 X10*6/uL (4.60-5.80); Red Cell Distribution Width 14.2 % (11.0-16.0); White Blood Count 10.4 X10*3/uL (4.8-10.8)
[2022-05-12 12:09] LABS: Appearance Urine Turbid; Color Urine Yellow; Glucose Urine UA Negative (Negative); Leukocyte Esterase Urine Negative (Negative); Nitrite Urine Negative (Negative); Specific Gravity - Urine >= 1.030 (1.005-1.025); Urine Blood Negative (Negative); Urine Ketones Negative (Negative); Urine Protein Trace mg/dL (Neg-Trace)
[2022-05-12 12:34] LABS: Alanine Aminotransferase 21 U/L (0-40); Albumin Level 3.9 g/dL (3.5-5.0); Alkaline Phosphatase 94 U/L (39-117); Anion Gap 13 (12-20); Aspartate Amino Transferase 13 U/L (5-37); Bilirubin Total 0.4 mg/dL (0.0-1.0); Blood Urea Nitrogen 22 mg/dL (9-16); Carbon Dioxide 26 mmol/L (22-29); Chloride 107 mmol/L (96-108); Cholesterol 108 mg/dL; Estimated Glomerular Filt Rate > 60; Glucose Fasting 194 mg/dL (60-99); HDL Cholesterol 34 mg/dL; LDL Cholesterol Calculated 53 mg/dl; Potassium 4.5 mmol/L (3.3-5.1); Sodium 141 mmol/L (135-145); Total Protein 6.5 g/dL (6.5-8.0); Triglycerides 109 mg/dL
[2022-05-12 12:54] LABS: Prostate Specific Antigen Scr 1.09 ng/mL (<0.05-4.0)
== END 2022-05-12 09:38 | disposition home or self-care (01) ==
LOC: HO.HMGCX 09:37
PROVIDERS: Absent Provider Internal Medicine; PCP Nurse Practitioner Family; Visit Provider Nurse Practitioner Family
DX: Z12.5 Encounter for screening for malignant neoplasm of prostate (principal); E11.9 Type 2 diabetes mellitus without complications; S20.212A Contusion of left front wall of thorax, initial encounter
CPT/HCPCS: 36415; 71101; 80053; 80061; 81003; 84153; 84443; 85025

== ENCOUNTER 2022-10-20 09:24 | Outpatient (AMB) | payer MEDICARE, SELFPAY ==
--- NOTE | 2022-10-20 09:26 | A.OFFVIS_ITS ---
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: No Accompanied by: Self / Same As Patient Allergies No Known Allergies Allergy (Verified 10/20/22 09:29) Medication List - Last Reconciled 10/20/22 by Broderick Wang MD aspirin 81 mg PO DAILY betamethasone dipropionate 0.05% 1 appl topical DAILY PRN cholecalciferol (vitamin D3) 1,250 mcg PO QWEEK ciclopirox 0.77% 1 appl topical BID diltiazem HCl 240 mg PO DAILY 90 days duloxetine 20 mg PO DAILY furosemide 40 mg PO DAILY 90 days hydrocortisone 2.5% topical BID PRN ipratropium-albuterol 20-100 mcg/actuation (Combivent Respimat) 1 puff inhalation Q6H ivabradine (Corlanor) 5 mg PO DAILY 90 days ketoconazole 2% 1 appl topical DAILY ketoconazole 2% topical meloxicam 15 mg PO DAILY PRN 30 days metformin 500 mg PO DAILY omeprazole 40 mg PO DAILY rosuvastatin 40 mg PO DAILY 90 days tacrolimus 0.1% topical tiotropium bromide 2.5 mcg/actuation (Spiriva Respimat) 2 puffs inhalation DAILY triamcinolone acetonide 0.025% 1 appl topical DAILY vitamin B complex (B Complex-Vitamin B12 tablet) 1 tab PO DAILY HPI HPI Comments History of Present Illness Details Cody comes for follow-up. From cardiac perspective he has had no new symptoms. Denies any rapid heart rate with dual therapy. Says he does still get short of breath which is not unusual given his advanced COPD. Occasionally gets inframammary chest pain which is not exertional nature feels like pressure and last for few seconds. There is no exertional symptoms. Takes all his medications. Denies any lightheadedness, syncope. Denies any orthopnea, PND, leg edema. He said he stopped taking Lasix about couple of months now and has had no worsening fluid buildup PFSH Medical History Diabetes Dyslipidemia Hyperlipidemia Inappropriate sinus tachycardia Surgical History Hx of cardiac cath Hx of hernia repair Family History Paternal Grandfather CAD (coronary artery disease) Father Pulmonary disease Maternal Grandmother Diabetes mellitus Social History Housing: House Alcohol intake: current Alcohol intake frequency: holidays/special occasions only Patient Tobacco Use Status: Former Tobacco user Quit Date: quit 6 years ago e-Cigarette/Vaping Use: Never Used Second Hand Smoke Exposure: No service: No Current occupational status: retired Cognitive needs: No Hearing needs: No Vision needs: No Review of Systems Const Denies weakness ENT Denies dizziness Card Denies chest pain, Denies chest pain with activity, Denies syncope, Denies rapid heart rate, Denies pedal edema, Denies edema, Denies leg edema, Denies lightheadedness, Denies palpitations, Denies dyspnea, Denies dyspnea on exertion and Denies orthopnea Resp Denies cough, Denies dyspnea and Denies dyspnea on exertion GI Denies hematochezia and Denies change in stool character Musc Denies abnormal gait, Denies muscle cramps, Denies muscle weakness, Denies num bness, Denies radiating pain into limb and Denies tingling Neuro Denies abnormal gait, Denies dizziness, Denies syncope, Denies numbness, Denies tingling and Denies weakness Endo Denies palpitations Physical Exam Vital Signs: Last Vital Signs Pulse 103 H 10/20/22 09:27 BP 128/66 10/20/22 09:27 BMI result Body Mass Index 36.5 Repeat blood pressure is 130/78 Pulse of 112 beats per minute Const General: alert and awake Nutritional Appearance: obese Orientation/consciousness: patient oriented x3 HEENT Head: Yes normocephalic and Yes atraumatic Neck Neck: Yes trachea midline, Yes supple and Yes no JVD Chest Chest palpation & inspection: abnormal inspection of the chest barrel chest Resp Effort & Inspection: normal respiratory effort Auscultation: no rhonchi, no wheezes and diminished lung sounds Cardio Jugular venous distension: no JVD Rate: regular rate and tachycardic Rhythm: regular rhythm Heart sounds: S1 normal heart sound present, S2 normal heart sound present and Murmur heart sound present systolic mid, decrescendo and crescendo Skin General skin exam: no rashes or lesions noted Neuro General: patient oriented x3 and no focal motor deficits Extrem General: Yes no clubbing, cyanosis or edema Assessment & Plan Assessment & Plan (1) Moderate aortic stenosis: Code(s): I35.0 - Nonrheumatic aortic (valve) stenosis Plan: [id number] aortic stenosis by last echocardiogram. Does not appear to have any progressive symptoms. The murmur is very difficult to assess. Will follow-up echocardiogram in a month's time and followed on annual basis. Continue aggressive vascular risk factor modification. Continue low-dose aspirin therapy for life. Continue aggressive blood pressure control which is currently well optimized. Target goal LDL less than 100 mg/dL. Cardinal symptoms of aortic stenosis were discussed. He does not have any signs or symptoms of heart failure is currently of Lasix therapy for about couple of months and has no evidence of fluid overload. Can use Lasix on a p.r.n. basis. (2) Inappropriate sinus tachycardia: Code(s): R00.0 - Tachycardia, unspecified Plan: Patient with significantly inappropriate sinus tachycardia with exertion most likely related to limited pulmonary capacity. However has done well with dual therapy with diltiazem and Corlanor. Most effective with Corlanor therapy. This suggests some amount of autonomic dysfunction. Advised to continue current therapy. Advised to avoid stimulants. Also use pulmonary specific bronchodilators. Follow up in the clinic in 1 year's time, sooner p.r.n.. Thank you for allowing me to partake in his care Orders: Orders CA echo transthorac w con 1 Month I35.0 - Nonrheumatic aortic (valve) stenosis Medications: Discontinued furosemide Discontinued Reason: Patient no longer taking 40 mg PO DAILY 90 tabs 3RF 90 days Coding Level of Care Code Est Pt Level 4 (12621) Diagnoses Moderate aortic stenosis I35.0 Inappropriate sinus tachycardia R00.0
[2022-10-20 09:27] VITALS: BP 128/66; PULSE 103; BMI 36.5
== END 2022-10-20 09:43 | disposition home or self-care (01) ==
PROVIDERS: PCP Nurse Practitioner Family; Referring Provider Nurse Practitioner Family; Visit Provider Internal Medicine Cardiovascular Disease
DX: I35.0 Nonrheumatic aortic (valve) stenosis (principal); R00.0 Tachycardia, unspecified
CPT/HCPCS: 99214

== ENCOUNTER → 2022-10-20 09:24 | Outpatient (BNVA) | payer MEDICARE, SELFPAY | PROVIDERS: PCP Nurse Practitioner Family; Referring Provider Nurse Practitioner Family; Visit Provider Internal Medicine Cardiovascular Disease | DX: I35.0 Nonrheumatic aortic (valve) stenosis (principal); R00.0 Tachycardia, unspecified; J44.1 Chronic obstructive pulmonary disease with (acute) exacerbation; Z87.891 Personal history of nicotine dependence; Z98.890 Other specified postprocedural states | CPT/HCPCS: 99212 ==

== ENCOUNTER → 2022-11-21 07:57 | Outpatient (REF) | payer MEDICARE, SELFPAY ==
--- NOTE | 2022-11-21 08:01 | CA_ITS ---
Transthoracic Echocardiogram Patient (Last, First, Middle): Cody Rebollar W Gender: Male Date of : 1950 Age: 72 Procedure Date: 11/21/2022 Procedure Type: Transthoracic Echocardiogram Location: OP Height: 182.88 cm Weight: 117.94 kg BSA: 2.38 m2 Heart Rate: 85 bpm BP: 150 / 70 mmHg Senior Clinical Research Scientist: KADE Referring MD: Broderick Wang MD Symptoms: I35.0 - Nonrheumatic aortic (valve) stenosis Study Quality: Fair ECG Rhythm: Sinus Conclusions: - Technically difficult study. - Normal left ventricular size and systolic function. The visually estimated ejection fraction is between 60-65%. - Normal right ventricular cavity size and systolic function. - There is mild aortic valve stenosis. - There is mild dilatation of the sinuses of Valsalva measuring 3.70 cm. Findings Left Ventricle Normal left ventricular size and systolic function. The visually estimated ejection fraction is between 60-65%. There is no evidence of regional wall motion abnormalities. Diastolic function is normal for age. Right Ventricle Normal right ventricular cavity size and systolic function. Atria The left atrium is normal in size. The right atrium is normal in size. Aortic Valve The aortic valve was not well visualized. There is mild aortic valve stenosis. The peak aortic velocity is 2.59 m/s. The mean gradient is 16 mmHg. The aortic valve area is 1.73 cm2. There is no aortic valve regurgitation. Mitral Valve The mitral valve was not well visualized. There is no mitral valve regurgitation. There is no mitral valve stenosis. Tricuspid Valve Likely normal tricuspid valve structure and function. Tricuspid regurgitation envelope is inadequate for calculation of right ventricular systolic pressure. Normal right atrial pressure. Great Vessels There is mild dilatation of the sinuses of Valsalva measuring 3.70 cm. Venous The inferior vena cava is normal in size and collapses greater than 50% with inspiration. Pericardium/Pleural There is no evidence of pericardial effusion. Prior Study Comparison No significant change compared to prior study dated: 11/15/2021. Measurements 2D Linear Measurements IVSd: 0.88 0.6-0.9/0.6-1.0 cm LVIDd: 5.05 3.9-5.3/4.2-5.9 cm LVIDd Index: 2.12 2.4-3.2/2.2-3.1 cm/m2 LVIDs: 3.03 2.0-3.6 cm LVPWd: 1.12 0.7-1.1 cm LA Diam: 3.40 2.7-3.8/3.0-4.0 cm LAIDs Index: 1.43 1.5-2.3 cm/m2 LV Mass: 229.70 67-162/88-224 g LV Mass Index: 96.51 43-95/49-115 g/m2 LVOT Diam: 2.40 3.0+(-)1.3 cm 2D Systolic Function EF 4C: 71.40 >55% EF 2C: 61.30 >55% EF BiP: 67.00 >55% Mitral Valve MV Pk E: 0.97 MV PK A: 0.91 MV Decel Time: 191.00 E/A: 1.10 E'Lateral: 10.90 E'Medial: 11.10 E/E' Med: 8.70 E/E' Lat: 8.90 PHT: 56.00 MVA PHT: 3.93 Decel [place]: 5.07 Aortic Valve AoV Pk Jose: 2.59 AoV Mn Jose: 1.88 AoV VTI: 0.58 AoV Pk Grad: 27.00 Aov Mn Grad: 16.00 ANA MARIA Cont.VTI: 1.73 LVOT LVOT Pk Jose: 0.98 LVOT Mn Jose: 0.71 LVOT VTI: 0.22 LVOT Pk Grad: 4.00 LVOT Mn Grad: 2.00 LVOT Diam: 2.40 LVOT Area: 4.52 Diastolic Function MV Pk E: 0.97 MV Pk A: 0.91 E/A: 1.10 E'Medial: 11.10 E/E' Med: 8.70 E' Laterial: 10.90 E/E' Lat: 8.90 Right Ventricle TAPSE (mm): 19.10 TVS' Jose: 15.70 Tricuspid Valve RA Press: 3.00 Great Vessels Aorta Sinus of Valsalva: 3.70 2.0-3.5 cm Pulmonary Valve PV Pk Jose: 1.10 Peak PV Grad: 5.00 Updated in Other Vendor System with Status of Final Vidal Arroyo MD electronically signed on 11/24/2022 8:53:09 AM with status of Final
== END ==
LOC: HO.CARD 07:57
PROVIDERS: PCP Nurse Practitioner Family; Visit Provider Internal Medicine Cardiovascular Disease
DX: I35.0 Nonrheumatic aortic (valve) stenosis (principal)
CPT/HCPCS: 93306

== ENCOUNTER → 2022-11-21 08:01 | Outpatient (BNV) | payer MEDICARE, SELFPAY | PROVIDERS: PCP Nurse Practitioner Family; Visit Provider Internal Medicine Cardiovascular Disease | DX: I35.0 Nonrheumatic aortic (valve) stenosis (principal) | CPT/HCPCS: 93306 ==

== ENCOUNTER 2022-11-26 09:47 | Outpatient (REF) | payer MEDICARE, SELFPAY ==
[2022-11-26 13:05] LABS: MANUAL DIFF FLAG NO
[2022-11-26 13:17] LABS: Basophils Absolute Auto 0.1 X10*3/uL (0.0-0.2); Basophils Percent Auto 0.8 % (0-2); Eosinophils Absolute Auto 0.2 X10*3/uL (0.0-0.4); Eosinophils Percent Auto 1.6 % (0-4); Hematocrit 54.3 % (42.0-52.0); Hemoglobin 16.7 g/dl (14.0-18.0); Imm Gran Abs Auto 0.06 X10*3/uL (0.00-0.03); Imm Gran Pct Auto 0.5 % (0.0-0.4); Lymphocytes Absolute Auto 1.8 X10*3/uL (1.2-4.9); Lymphocytes Percent Auto 16.3 % (20-40); Mean Corpuscular HGB Conc 30.8 g/dl (31.0-36.0); Mean Corpuscular Hemoglobin 28.1 pg (27.0-33.0); Mean Corpuscular Volume 91.3 fL (80.0-98.0); Mean Platelet Volume 10.5 fL (9.4-12.4); Monocytes Absolute Auto 0.7 X10*3/uL (0.1-1.2); Monocytes Percent Auto 6.7 % (2-11); Neutrophils Absolute Auto 8.2 x10*3/uL (2.0-8.3); Neutrophils Percent Auto 74.1 % (45-73); Platelet Count 233 X10*3/uL (160-400); Red Blood Count 5.95 X10*6/uL (4.60-5.80); White Blood Count 11.1 X10*3/uL (4.8-10.8)
[2022-11-26 13:45] LABS: Appearance Urine Turbid; Color Urine Yellow; Glucose Urine UA Negative (Negative); Leukocyte Esterase Urine Negative (Negative); Nitrite Urine Negative (Negative); PH 5.5 (5.0-9.0); Specific Gravity - Urine 1.025 (1.005-1.025); Urine Blood Negative (Negative); Urine Ketones Negative (Negative); Urine Protein Negative (Neg-Trace)
[2022-11-26 13:50] LABS: Alanine Aminotransferase 19 U/L (0-40); Alkaline Phosphatase 88 U/L (39-117); Anion Gap 14 (12-20); Aspartate Amino Transferase 16 U/L (5-37); Bilirubin Total 0.6 mg/dL (0.0-1.0); Blood Urea Nitrogen 20 mg/dL (9-16); Calcium 9.4 mg/dL (8.4-10.2); Carbon Dioxide 26 mmol/L (22-29); Chloride 104 mmol/L (96-108); Cholesterol 109 mg/dL (<200); Estimated Glomerular Filt Rate > 60; Glucose Fasting 156 mg/dL (60-99); HDL Cholesterol 32 mg/dL (>40); LDL Cholesterol Calculated 46 mg/dL (<100); Potassium 4.3 mmol/L (3.3-5.1); Sodium 140 mmol/L (135-145); Total Protein 7.1 g/dL (6.5-8.0); Triglycerides 155 mg/dL (<150)
[2022-11-26 14:07] LABS: TSH reflex Free T4 1.15 uIU/mL (0.32-4.0)
[2022-11-26 14:29] LABS: Creatinine Urine 182.72 mg/dL; Microalbum/Creatinine Ratio Ur 8.7 ug/mg cr (<30)
== END 2022-11-26 09:48 | disposition home or self-care (01) ==
LOC: HO.HMGCLDS 09:47
PROVIDERS: PCP Nurse Practitioner Family; Visit Provider Nurse Practitioner Family
DX: E11.9 Type 2 diabetes mellitus without complications (principal)
CPT/HCPCS: 36415; 80053; 80061; 81003; 82043; 82570; 84443; 85025

== ENCOUNTER 2022-11-28 10:34 | Outpatient (REF) | payer MEDICARE, SELFPAY ==
--- NOTE | ~2022-11-28 | XR_ITS ---
EXAMINATION: XR CHEST CLINICAL INFORMATION: Elevated white blood cell count. COMPARISON: 05/12/2022 TECHNIQUE: 2 views of the chest were obtained. FINDINGS: Heart and mediastinum within normal limits. Prominent ciera are stable. Incidental note of azygos lobe. Lungs are hyperinflated with flattening of the diaphragms and increased AP diameter to the chest. No vascular congestion. Right lung is basically clear. Unchanged lingular scarring/atelectasis. 1.4 cm rounded density is identified overlying mid to lower thoracic disc space. Demineralization, moderate compression deformities and kyphosis again seen. Old left rib fracture. XR/XR chest 2V IMPRESSION: Left base scarring/atelectasis. Question posterior lung nodule. Chest CT recommended.
[2022-11-28 13:06] LABS: MANUAL DIFF FLAG NO
[2022-11-28 13:15] LABS: Basophils Absolute Auto 0.1 X10*3/uL (0.0-0.2); Basophils Percent Auto 1.1 % (0-2); Eosinophils Absolute Auto 0.3 X10*3/uL (0.0-0.4); Eosinophils Percent Auto 3.2 % (0-4); Hematocrit 54.3 % (42.0-52.0); Hemoglobin 16.6 g/dl (14.0-18.0); Imm Gran Abs Auto 0.05 X10*3/uL (0.00-0.03); Imm Gran Pct Auto 0.6 % (0.0-0.4); Lymphocytes Absolute Auto 2.2 X10*3/uL (1.2-4.9); Lymphocytes Percent Auto 25.8 % (20-40); Mean Corpuscular HGB Conc 30.6 g/dl (31.0-36.0); Mean Corpuscular Hemoglobin 28.2 pg (27.0-33.0); Mean Corpuscular Volume 92.2 fL (80.0-98.0); Mean Platelet Volume 10.6 fL (9.4-12.4); Monocytes Absolute Auto 0.6 X10*3/uL (0.1-1.2); Monocytes Percent Auto 6.8 % (2-11); Neutrophils Absolute Auto 5.3 x10*3/uL (2.0-8.3); Neutrophils Percent Auto 62.5 % (45-73); Platelet Count 212 X10*3/uL (160-400); Red Blood Count 5.89 X10*6/uL (4.60-5.80); Red Cell Distribution Width 14.8 % (11.0-16.0); White Blood Count 8.5 X10*3/uL (4.8-10.8)
== END 2022-11-28 10:35 | disposition home or self-care (01) ==
LOC: HO.HMGCX 10:34
PROVIDERS: PCP Nurse Practitioner Family; Visit Provider Nurse Practitioner Family
DX: D72.829 Elevated white blood cell count, unspecified (principal)
CPT/HCPCS: 36415; 71046; 85025

== ENCOUNTER 2022-12-08 07:47 | Outpatient (AMB) | payer MEDICARE, SELFPAY ==
--- NOTE | 2022-12-08 07:53 | AM.OFFVISMDC ---
Intake Vital Signs 12/08/22 07:54 Height 5 ft 11 in Weight 265 lb 8 oz BMI 37.0 BP 134/78 Blood Pressure Location Lt brachial Position Sitting Pulse 63 Pulse Source Pulse Oximeter Pulse Oximetry (%) 96 Oxygen Delivery Method Room Air Intake Visit Reasons: SWV Allergies No Known Allergies Allergy (Verified 12/08/22 08:41) Medication List - Last Reconciled 12/08/22 by ARTEMIO Arceo aspirin 81 mg PO DAILY betamethasone dipropionate 0.05% 1 appl topical DAILY PRN cholecalciferol (vitamin D3) 1,250 mcg PO QWEEK ciclopirox 0.77% 1 appl topical BID diltiazem HCl 240 mg PO DAILY 90 days duloxetine 20 mg PO DAILY hydrocortisone 2.5% topical BID PRN ipratropium-albuterol 20-100 mcg/actuation (Combivent Respimat) 1 puff inhalation Q6H ivabradine (Corlanor) 5 mg PO DAILY 90 days ketoconazole 2% 1 appl topical DAILY ketoconazole 2% topical meloxicam 15 mg PO DAILY PRN 30 days metformin 500 mg PO BID omeprazole 40 mg PO DAILY rosuvastatin 40 mg PO DAILY 90 days tacrolimus 0.1% topical tiotropium bromide 2.5 mcg/actuation (Spiriva Respimat) 2 puffs inhalation DAILY triamcinolone acetonide 0.025% 1 appl topical DAILY vitamin B complex (B Complex-Vitamin B12 tablet) 1 tab PO DAILY HPI SWV HPI Details Pt is here for an SWV. Denies fever, chills, and dizziness. [place] of care in scan pile. PPP will be scanned in chart and copy will be given to pt. [facility] Medical History Diabetes Dyslipidemia Hyperlipidemia Inappropriate sinus tachycardia Surgical History Hx of hernia repair Hx of cardiac cath Family History Paternal Grandfather CAD (coronary artery disease) Father Pulmonary disease Maternal Grandmother Diabetes mellitus Social History Housing: House Alcohol intake: current Alcohol intake frequency: holidays/special occasions only Patient Tobacco Use Status: Former Tobacco user Quit Date: quit 6 years ago e-Cigarette/Vaping Use: Never Used Second Hand Smoke Exposure: No service: No Current occupational status: retired Cognitive needs: No Hearing needs: No Vision needs: No Questionnaire Medicare Wellness Checkup [age] What gender do you identify with?: male During the past 4 weeks, how much have you been bothered by emotional problems such as feeling anxious, depressed, irritable, sad or downhearted, and blue?: not at all During the past 4 weeks, has your physical & emotional health limited your social activities with family, friends, neighbors, or groups?: not at all During the past 4 weeks, how much bodily pain have you generally had?: very mild pain During the past 4 weeks, was someone available to help you if you needed & wanted help?: yes, as much as I wanted During the past 4 weeks, what was the hardest physical activity you could do for at least 2 minutes?: heavy Can you get to places out of walking distance without help? (For eg., can you travel alone on buses, taxis or drive your car?): Yes Can you go shopping for groceries or clothes without someone's help?: Yes Can you prepare your own meals?: Yes Can you do your housework without help?: Yes Because of any health problems, do you need the help of another person with your personal care needs such as eating, bathing, dressing or getting around the house?: No Can you handle your own money without help?: Yes During the past 4 weeks, how would you rate your health in general?: fair During the past 4 weeks how have things been going for you?: pretty well Are you having difficulties driving your car?: no Do you always fasten your seat belt when you are in a car?: no During past 4 weeks, have you been bothered by the following: never: Falling or dizzy when standing up, Trouble eating well? and Problems using the telephone?, seldom: Tiredness or fatigue? and sometimes: Sexual problems? and Teeth or denture problems? Have you fallen 2 or more times in the past year?: No Are you afraid of falling?: No Are you a smoker?: no During the past 4 weeks, how many drinks of wine, beer, or other alcoholic beverages did you have?: no alcohol at all Do you exercise for about 20 minutes 3 or more times a week?: yes, some of the time Have you been given information to help with the following?: no: Hazards in your house that might hurt you? and no: Keeping track of your medications? How often do you have trouble taking medicines the way you have been told to take them?: I always take medicine as prescribed How confident are you that you can control & manage most of your health problems?: very confident What is your race?: White Mini Mental State Exam (MMSE) Orientation What is the (year) (season) (date) (day) (month)?: year (2022) Where are we (state) (county) (town or city) (hospital) (floor)?: state (tn) Registration Name of 3 unrelated objects clearly and slowly, then ask patient to repeat all 3 of them. (1st repeat determines score. Make sure they can repeat all three): object 1, object 2 and object 3 Attention & Calculation (CHOOSE ONE) Spell WORLD backwards (DLROW): 5 letters Recall Ask patient to repeat the 3 items from question #3.: object 1, object 2 and object 3 Language Show patient a wristwatch & ask what it is. Repeat for pencil.: watch and pencil Ask the patient to repeat the phrase 'No ifs, ands, or buts' after you.: correct Ask the patient to 'take a piece of paper with their right hand' 'fold paper in half' 'place paper on floor': take paper in right hand Give patient a blank piece of paper & ask to write a sentence. Score if it contains a noun & verb.: sentence contains subject and verb Ask patient to copy figure of intersecting pentagons exactly. Score if all 10 angles & 2 intersects are included.: all 10 angles present & 2 are intersected Score Score: 19 Activity of Daily Living Bathing - sponge bath, tub bath or shower: receives no assistance (gets in/out by self, if usual bathing means Dressing - getting clothes from closets & drawers, including inner/outer garments & fasteners.: gets clothes & gets completely dressed without help Toileting - going to the 'toilet room' for urine/bowel elimination & cleaning self/arranging clothes: goes to toilet room, cleans self, arranges clothes without help Transfer: moves in & out of bed and chair without help (may use support object) Continence: controls urination/bowel movements completely by self Feeding: feeds self without help Total Score: 0 Information obtained from: patient Using telephone: independent Traveling: independent Shopping: independent Preparing meals: independent Housework: independent Taking medicine: independent Managing money: independent PHQ-9 Over the last 2 weeks, how often have you been bothered by any of the following problems? 1. Little interest or pleasure in doing things: not at all 2. Feeling down, depressed, or hopeless: not at all 3. Trouble falling or staying asleep, or sleeping too much: nearly every day 4. Feeling tired or having little energy: several days 5. Poor appetite or overeating: not at all 6. Feeling bad about yourself - or that you are a failure or have let yourself or your family down: not at all 7. Trouble concentrating on things, such as reading the newspaper or watching television: not at all 8. Moving or speaking so slowly that other people could have noticed. Or the opposite - being so fidgety or restless that you have been moving around a lot more than usual: not at all 9. Thoughts that you would be better off or of hurting yourself in some way: not at all Total score: 4 Depression Screening Interpretation: Negative Depression Screening Done: Yes 60025 - PHQ-9 Billing: Yes Source: Developed by Drs. Raji Jones, Joanna Lopez, Nathaniel Edgar and colleagues, with an educational galen from [employer]. Review of Systems Const Reports as per HPI Physical Exam Vital Signs: Last Vital Signs Pulse 63 12/08/22 07:54 BP 134/78 12/08/22 07:54 Pulse Ox 96 12/08/22 07:54 Oxygen Delivery Method Room Air 12/08/22 07:54 BMI result Body Mass Index 37.0 Const General: cooperative Nutritional Appearance: obese Orientation/consciousness: patient oriented x3 Neuro Other: - romberg, can tandem walk, can walk and turn, can rise from sitting to standing, passed whisper test General: patient oriented x3 Psych Appearance: grossly normal Mental Status: mental status grossly normal Speech and movement: Normal speech and movement present Affect: normal affect Attitude: cooperative Thought process: Normal thought process present Thought content: Normal thought content present Insight: Good insight present (Psych) Judgement: Good judgement present (Psych) Results AMB Hemoglobin A1c AMB Hemoglobin A1c 7.3 % Last Edit by Jewell Hughes CMA on 12/08/22 08:50 Results Reviewed Results Reviewed: Laboratory Last Values Hgb A1c (Clinic) 7.3 % (4.0-6.0) H 12/08/22 08:48 Assessment & Plan Assessment & Plan (1) Encounter for subsequent annual wellness visit (AWV) in Medicare patient: Code(s): Z00.00 - Encounter for general adult medical examination without abnormal findings Plan The patient agreed to the use of a medical information specialist for this encounter. Scribed for [id number] [id number] by Luma Medina medical information specialist, on 12/08/2022 at 08:05 EST Orders: Orders AMB Hemoglobin A1c Today E11.9 - Type 2 diabetes mellitus without complications Medications: Changed From metformin 500 mg PO BID To metformin 1,000 mg PO BID 180 tabs 0RF 90 days Quality Reporting (2019) Depression/Bipolar (159/160/161/177) PHQ-9: Total score: 4 Coding Level of Care Code Medicare Subsequent (G0439) Diagnoses Encounter for subsequent annual wellness visit (AWV) in Medicare patient Z00.00 CPT Codes Advance Care Planning - Time spent: 16-45 minutes ([id number]) Advance Care Planning Forms completed: Health Care Proxy (form given to pt), MOLST (form given to pt) and Living will (encouraged pt to get this done) Time spent: 16-45 minutes
[2022-12-08 07:54] VITALS: BP 134/78; PULSE 63; O2SAT 96; BMI 37.0
== END 2022-12-08 08:49 | disposition home or self-care (01) ==
PROVIDERS: PCP Nurse Practitioner Family; Visit Provider Nurse Practitioner Family
DX: Z00.00 Encounter for general adult medical examination without abnormal findings (principal); E11.9 Type 2 diabetes mellitus without complications
CPT/HCPCS: 83036; 99497; G0439

== ENCOUNTER 2022-12-30 08:54 | Outpatient (REF) | payer MEDICARE, SELFPAY ==
--- NOTE | ~2022-12-30 | CT_ITS ---
EXAMINATION: CT CHEST WITH CONTRAST CLINICAL INFORMATION: Solitary Pulmonary nodule, evaluate 1.4 cm posterior left lung nodule found on chest x-ray. COMPARISON: CT scan of chest on 10/05/2009 (images could not be retrieved), chest x-ray on 11/28/2022, CT scan of abdomen and pelvis on 02/29/2020 TECHNIQUE: Multidetector volumetric CT imaging of the chest was obtained after the administration of 65 mL of Omnipaque 350 intravenous contrast without immediate adverse reactions. Axial MIP volume rendering provided. Sagittal and coronal reformatted images were obtained. This CT examination was performed using dose optimization techniques as appropriate, variously including the following: *Automated exposure control *Adjustment of mA and/or kV according to patient size (this includes techniques or standardized protocols for targeted exams where dose is matched to indication/reason for exam; i.e. extremities or head) *Use of iterative reconstruction technique DLP: 312.2 mGy-cm FINDINGS: LUNGS: Small oblique platelike atelectasis is seen in posterior lateral corner of left lingular lobe inferior segment. Azygos fissure is present. -Nodule #1 (Series 9, image 152): 2.4 mm solid nodule, posterior pleural border of right lower lobe superior segment. -Nodule #2 (Series 9, image 152): 2.9 mm solid nodule, left lower lobe posterior basal segment. -Nodule #3 (Series 9, image 175): 5.1 mm solid nodule, left lower lobe posterior basal segment. No solid or groundglass lesion corresponding to the 1.4 cm round density in posterior lower lobes could be identified. PLEURA: No pleural effusion or pneumothorax is seen. PERICARDIUM: No pericardial effusion is seen. MEDIASTINUM AND LACY: No abnormally enlarged mediastinal or hilar lymph nodes are seen. TRACHEOBRONCHIAL TREE: Trachea and bilateral mainstem bronchi are patent. THORACIC AORTA: The thoracic aorta is normal in size and smoothly patent. CORONARY ARTERY CALCIFICATIONS: Mild PULMONARY ARTERIES: The main pulmonary arteries show normal enhancement. CHEST WALL AND LOWER NECK: The subcutaneous and muscular chest wall are intact with no focal lesion. No abnormal mass lesion could be seen in the visualized lower neck. BONES: Moderate compression fracture of T5 and T8 vertebral bodies, resulting exaggerated thoracic kyphosis are seen. Healed chronic posterior left eighth rib fracture with mild deformity is again visualized. No focal bone lesion diagnostic of metastatic disease could be seen in the thorax. VISUALIZED UPPER ABDOMEN: Bilateral adrenal glands are not enlarged. A small hiatus hernia is present. A relatively low density lesion is seen in subcapsular left hepatic dome segments 2 measuring 1.1 cm (previously 0.9 cm) in diameter, mean attenuation of 20 Hounsfield units. A hypoenhancing noncystic lesion is seen in superior splenic body measuring 1.5 cm in diameter, mean attenuation of 42 Hounsfield units. There is a suggestion of 2 superior lateral subcapsular splenic hyperenhancing focal lesions, measuring 0.9 cm in diameter in the anterior lesion, 1.0 cm in the posterior lesion, series 3 image #57. CT/CT chest w IV con IMPRESSION: 1. Left lingular lobe inferior segment oblique platelike atelectasis is seen. 2. Several right and left lower lobe lung nodules less than 6 mm in size are found. According to the UPDATED 2017 Fleischner Society recommendations, the advised follow-up imaging for solid nodules <6 mm in the middle/lower lobes is no routine follow up. 3. No focal lung mass lesion or mediastinal lymphadenopathy is seen. 4. No thoracic aortic aneurysm or dissection is seen. 5. Unchanged T5, T8 vertebral compression fractures, exaggerated thoracic kyphosis, chronic healed posterior left eighth rib fracture. 6. Probable persistent left hepatic dome simple cyst and interval development of noncystic lesions in splenic body including the subcapsular hyperenhancing focal lesions. Further evaluation with pre and postcontrast MRI of the abdomen is recommended. Fleischner guidelines were followed.
[2022-12-30] MEDS: iohexoL 350 MG/ML 100 ML INFUS..BTL IV (10:00)
[2022-12-30 13:28] LABS: Creatinine POC 0.8 mg/dL (0.5-1.4); GFR POC > 60
== END 2022-12-30 08:55 | disposition home or self-care (01) ==
LOC: HO.CT 08:54
PROVIDERS: PCP Nurse Practitioner Family; Visit Provider Nurse Practitioner Family
DX: R91.1 Solitary pulmonary nodule (principal)
CPT/HCPCS: 71260; 82565; Q9967

== ENCOUNTER 2023-02-13 13:29 | Outpatient (REF) | payer MEDICARE, SELFPAY ==
--- NOTE | ~2023-02-13 | MR_ITS ---
EXAMINATION: MRI ABDOMEN WITH AND WITHOUT CONTRAST CLINICAL INFORMATION: D73.89 - Other diseases of spleen COMPARISON: 12/21/2019 and 12/30/2002 CT scans. TECHNIQUE: Multiple routine MRI sequences through the abdomen were obtained on a high-field 1.5Tesla MRI. Pre-and postcontrast images with 10 mL of Gadavist intravenous contrast were obtained. This included a dynamic contrast-enhanced technique. Of note the patient was nauseous after the contrast injection. FINDINGS: Lung bases: The visualized lung bases are unremarkable. Liver: The liver is normal in size, shape, and signal. There are few scattered tiny T2 bright incidental cysts within the liver parenchyma of no clinical significance. No suspicious focal hepatic lesions seen. Specifically no suspicious arterial phase enhancing lesions or suspicious washout of contrast on later phases. No biliary ductal dilatation. Gallbladder: Gallbladder is unremarkable. No suspicious gallstones or filling defects. No gallbladder wall thickening or pericholecystic inflammatory changes. Pancreas: Pancreas is homogeneous in signal. No pancreatic ductal dilatation or obstruction. No peripancreatic inflammatory changes or fluid. Spleen: There are several small T2 bright peripheral nodular enhancing lesions in the spleen most consistent with splenic hemangiomas. The largest of these measures 1.5 cm in maximal diameter. Some of these were present on the prior 2019 study as well. The T2 bright signal on the single shot fast spin-echo images is much more suggestive of underlying hemangiomas. Adrenals: Unremarkable Kidneys: Kidneys are normal in size, shape, and signal. No suspicious renal mass lesion seen. No hydronephrosis or perinephric edema. Other: No bulky adenopathy MR/MR abdomen wo/w con IMPRESSION: There are several small T2 bright peripheral nodular enhancing lesions in the spleen most consistent with splenic hemangiomas. These correspond to the abnormality seen on the recent 12/30/2022 CT scan. These are better delineated on the most delayed postcontrast images were there is more enhancement seen. Some of these were appreciated on the prior 2019 study as well. The largest of these measures 1.5 cm in maximal diameter. The T2 bright signal on the single shot fast spin-echo images is much more suggestive of underlying splenic hemangiomas.
[2023-02-13] MEDS: gadobutroL 10 ML VIAL IVPUSH (14:39)
== END 2023-02-13 13:30 | disposition home or self-care (01) ==
LOC: HO.MRI 13:29
PROVIDERS: PCP Nurse Practitioner Family; Visit Provider Nurse Practitioner Family
DX: D73.89 Other diseases of spleen (principal)
CPT/HCPCS: 74183; A9585

== ENCOUNTER 2023-03-17 08:19 | Outpatient (AMB) | payer MEDICARE, SELFPAY ==
--- NOTE | 2023-03-17 08:26 | MHC.PC.OV ---
Vital Signs 03/17/23 08:31 Weight 274 lb BP 120/72 Blood Pressure Location Rt brachial Position Sitting Pulse 102 H Pulse Source Pulse Oximeter Pulse Oximetry (%) 96 Oxygen Delivery Method Room Air Intake Visit Reasons: 3 month follow up Intake Note: Patient here for diabetes F/U. Pt states he does not check sugars at home. He has cute the statin in 03/03. Allergies No Known Allergies Allergy (Verified 03/17/23 08:32) Medication List - Last Reconciled 03/17/23 by LENA Arceo-MEENAKSHI aspirin 81 mg PO DAILY betamethasone dipropionate 0.05% 1 appl topical DAILY PRN cholecalciferol (vitamin D3) 1,250 mcg PO QWEEK ciclopirox 0.77% 1 appl topical BID diltiazem HCl 240 mg PO DAILY 90 days duloxetine 20 mg PO DAILY hydrocortisone 2.5% topical BID PRN ipratropium-albuterol 20-100 mcg/actuation (Combivent Respimat) 1 puff inhalation Q6H ivabradine (Corlanor) 5 mg PO DAILY 90 days ketoconazole 2% 1 appl topical DAILY ketoconazole 2% topical meloxicam 15 mg PO DAILY PRN 30 days metformin 1,000 mg PO BID 90 days omeprazole 40 mg PO DAILY rosuvastatin 40 mg PO DAILY 90 days tacrolimus 0.1% topical tiotropium bromide 2.5 mcg/actuation (Spiriva Respimat) 2 puffs inhalation DAILY triamcinolone acetonide 0.025% 1 appl topical DAILY vitamin B complex (B Complex-Vitamin B12 tablet) 1 tab PO DAILY Tobacco use date assessed: 03/17/23 Fall risk assessment: No Falls in past year Last assessed Fall Risk: 03/17/23 Dental Screening Dental Screen Date: 03/17/23 Did you have a dental visit in the last 12 months?: No Did you have a dental problem in the last 6 months where you did not have access to dental care?: No Was dental information given to patient?: Patient has dentist HPI 3 month follow up HPI Details Pt is a diabetic, on a statin. A1C in office today is . Microalbumin is up to date. Denies polyuria, polydipsia, does report neuropathy. Pt denies any signs and symptoms of hypoglycemia and does know how to correct it. Eye exam is up to date. 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 Pt reports an episode of hematuria yesterday morning. He describes his urine as pink . He states that this morning his urine was normal with only one drop of blood at the end of his stream. Pt does not have a hx of kidney stones. Will order UA, culture, and cytology. Will also refer to urology. January 2023 MRI of abd (which included kidneys) was neg for any pathology, though image of bladder was not part of the imaging. Pt quit smoking 9 years ago. [facility] Medical History Diabetes Dyslipidemia Hyperlipidemia Inappropriate sinus tachycardia Surgical History Hx of hernia repair Hx of cardiac cath Family History Paternal Grandfather CAD (coronary artery disease) Father Pulmonary disease Maternal Grandmother Diabetes mellitus Social History Housing: House Alcohol intake: current Alcohol intake frequency: holidays/special occasions only Patient Tobacco Use Status: Former Tobacco user Quit Date: quit 6 years ago e-Cigarette/Vaping Use: Never Used Second Hand Smoke Exposure: No service: No Current occupational status: retired Cognitive needs: No Hearing needs: No Vision needs: No Questionnaire Thrive Questionnaire Date Thrive assessed: 11/28/21 AUDIT C Alcohol Use Questionnaire (AUDIT-C) 1. How often do you have a drink containing alcohol?: Never 3. How often do you have six or more drinks on one occasion?: Never Total Score: 0 Score Reviewed/Action Taken: No RAMON-7 AMB Questionnaire RAMON-7 Date RAMON - 7 assessed: 11/28/21 Source: Developed by Drs. Raji Jones, Joanna Lopez, Nathaniel Edgar and colleagues, with an educational galen from [employer]. Review of Systems Const Reports as per HPI Physical exam (Primary Care) Vital Signs: Last Vital Signs Pulse 102 H 03/17/23 08:31 BP 120/72 03/17/23 08:31 Pulse Ox 96 03/17/23 08:31 Oxygen Delivery Method Room Air 03/17/23 08:31 Tobacco/Smoking Status: Tobacco use Status Tobacco use date assessed 03/17/23 03/17/23 08:35 Patient Tobacco Use Status Former Tobacco user 03/17/23 08:29 e-Cigarette/Vaping Use Never Used 03/17/23 08:29 Thrive Assessment: Date of Thrive Assessment Date Thrive assessed 11/28/21 03/17/23 08:29 Const General: cooperative Nutritional Appearance: obese Orientation/consciousness: patient oriented x3 Resp Effort & Inspection: normal respiratory effort Auscultation: diminished lung sounds Cardio Rate: regular rate Rhythm: regular rhythm Heart sounds: S1 normal heart sound present and S2 normal heart sound present General: Yes no CVA tenderness Back/Spine/Pelvis Back: no CVA tenderness Neuro General: patient oriented x3 Extrem Other: bilat feet: no sensation with use of monofilament, onychomycosis noted bilat, elongated toenails, hammertoes noted Psych Appearance: grossly normal Mental Status: mental status grossly normal Speech and movement: Normal speech and movement present Affect: normal affect Attitude: cooperative Thought process: Normal thought process present Thought content: Normal thought content present Insight: Good insight present (Psych) Judgement: Good judgement present (Psych) Assessment and Plan Assessment & Plan (1) Diabetes: Code(s): E11.9 - Type 2 diabetes mellitus without complications Plan: Labs ordered (2) Hematuria: Code(s): R31.9 - Hematuria, unspecified Plan: referring to urology, cytology ordered Plan The patient agreed to the use of a electromedical service engineer for this encounter. Scribed for CHASIDY Sun by Luma Medina electromedical service engineer, on 03/17/2023 at 08:45 EST. Orders: Orders Comprehensive [place]. Panel Fast Today E11.9 - Type 2 diabetes mellitus without complications TSH reflex Free T4 Today E11.9 - Type 2 diabetes mellitus without complications Urine Culture Today R31.9 - Hematuria, unspecified Urine Cytology Today R31.9 - Hematuria, unspecified Complete Blood Count Auto Diff Today E11.9 - Type 2 diabetes mellitus without complications UA CC w/rflx Micro + Cult Today E11.9 - Type 2 diabetes mellitus without complications Lipid Panel Today E11.9 - Type 2 diabetes mellitus without complications Referrals Urology Referral R31.9 - Hematuria, unspecified Coding Level of Care Code Est Pt Level 3 (48649) Diagnoses Diabetes E11.9 Hematuria R31.9
[2023-03-17 08:31] VITALS: BP 120/72; PULSE 102; O2SAT 96
== END 2023-03-17 10:27 | disposition home or self-care (01) ==
PROVIDERS: PCP Nurse Practitioner Family; Visit Provider Nurse Practitioner Family
DX: E11.9 Type 2 diabetes mellitus without complications (principal); R31.9 Hematuria, unspecified
CPT/HCPCS: 83036; 99213

== ENCOUNTER 2023-03-17 09:03 | Outpatient (REF) | payer MEDICARE, SELFPAY ==
[2023-03-17 11:33] LABS: Urine Cytology See Pathology rpt
[2023-03-17 11:51] LABS: Appearance Urine Clear; Color Urine Yellow; Glucose Urine UA Negative (Negative); Leukocyte Esterase Urine Trace (Negative); Nitrite Urine Negative (Negative); PH 5.5 (5.0-9.0); UMIC TRIGGER UACC YES; Urine Blood Trace (Negative); Urine Ketones Negative (Negative); Urine Protein Negative (Neg-Trace)
[2023-03-17 11:54] LABS: Bacteria Urine None Seen (None Seen); Hyaline Casts Urine 0-2 /LPF (0-2); Squamous Epithelial Cell Urine 0-2 /HPF (0-2); WBC Urine 0-5 /HPF (0-5)
== END 2023-03-17 09:04 | disposition home or self-care (01) ==
LOC: HO.HMGCLDS 09:03
PROVIDERS: PCP Nurse Practitioner Family; Visit Provider Nurse Practitioner Family
DX: R31.9 Hematuria, unspecified (principal)
CPT/HCPCS: 81001; 87086; 88112

== ENCOUNTER 2023-03-26 09:11 | Outpatient (REF) | payer MEDICARE, SELFPAY ==
[2023-03-26 11:38] LABS: MANUAL DIFF FLAG NO
[2023-03-26 12:09] LABS: Basophils Absolute Auto 0.1 X10*3/uL (0.0-0.2); Basophils Percent Auto 1.3 % (0-2); Eosinophils Absolute Auto 0.3 X10*3/uL (0.0-0.4); Eosinophils Percent Auto 2.9 % (0-4); Hematocrit 54.5 % (42.0-52.0); Imm Gran Abs Auto 0.03 X10*3/uL (0.00-0.03); Imm Gran Pct Auto 0.3 % (0.0-0.4); Lymphocytes Absolute Auto 2.1 X10*3/uL (1.2-4.9); Mean Corpuscular HGB Conc 31.2 g/dl (31.0-36.0); Mean Corpuscular Hemoglobin 28.8 pg (27.0-33.0); Mean Corpuscular Volume 92.2 fL (80.0-98.0); Mean Platelet Volume 10.8 fL (9.4-12.4); Monocytes Absolute Auto 0.5 X10*3/uL (0.1-1.2); Monocytes Percent Auto 6.2 % (2-11); Neutrophils Absolute Auto 5.7 x10*3/uL (2.0-8.3); Neutrophils Percent Auto 65.3 % (45-73); Platelet Count 274 X10*3/uL (160-400); Red Blood Count 5.91 X10*6/uL (4.60-5.80); Red Cell Distribution Width 13.7 % (11.0-16.0); White Blood Count 8.7 X10*3/uL (4.8-10.8)
[2023-03-26 12:37] LABS: Alanine Aminotransferase 26 U/L (0-40); Albumin Level 4.1 g/dL (3.5-5.0); Alkaline Phosphatase 84 U/L (39-117); Anion Gap 16 (12-20); Aspartate Amino Transferase 16 U/L (5-37); Bilirubin Total 0.5 mg/dL (0.0-1.0); Blood Urea Nitrogen 15 mg/dL (9-16); Calcium 9.7 mg/dL (8.4-10.2); Carbon Dioxide 25 mmol/L (22-29); Chloride 104 mmol/L (96-108); Cholesterol 127 mg/dL (<200); Estimated Glomerular Filt Rate > 60; Glucose Fasting 174 mg/dL (60-99); HDL Cholesterol 39 mg/dL (>40); LDL Cholesterol Calculated 55 mg/dL (<100); Potassium 4.2 mmol/L (3.3-5.1); Sodium 141 mmol/L (135-145); Total Protein 7.1 g/dL (6.5-8.0); Triglycerides 167 mg/dL (<150)
[2023-03-26 12:41] LABS: TSH reflex Free T4 0.72 uIU/mL (0.32-4.0)
== END 2023-03-26 09:12 | disposition home or self-care (01) ==
LOC: HO.HMGCLDS 09:11
PROVIDERS: PCP Nurse Practitioner Family; Visit Provider Nurse Practitioner Family
DX: E11.9 Type 2 diabetes mellitus without complications (principal)
CPT/HCPCS: 36415; 80053; 80061; 84443; 85025

== ENCOUNTER 2023-03-30 13:01 | Inpatient (IN) | payer MEDICARE, SELFPAY ==
--- NOTE | ~2023-03-30 | CT_ITS ---
EXAMINATION: CTA ABDOMEN AND PELVIS WITH AND WITHOUT CONTRAST CLINICAL INFORMATION: Rectal bleeding COMPARISON: CT chest from 12/30/2022, CT abdomen from 02/28/2021 TECHNIQUE: Multidetector volumetric CT imaging of the abdomen and pelvis was performed before and after the administration of 100 mL of Omnipaque 300 intravenous contrast without immediate adverse reactions. Axial MIP volume rendering provided. Sagittal and coronal reformatted images were obtained. This CT examination was performed using dose optimization techniques as appropriate, variously including the following: *Automated exposure control *Adjustment of mA and/or kV according to patient size (this includes techniques or standardized protocols for targeted exams where dose is matched to indication/reason for exam; i.e. extremities or head) *Use of iterative reconstruction technique DLP: 2234 mGy-cm. FINDINGS: LOWER LUNGS: Emphysematous changes. Previously identified lung nodules are less conspicuous on current examination. No pneumothorax. No large pleural effusion. LIVER, GALLBLADDER, AND BILIARY TREE: The liver is normal in size, shape, and attenuation. Redemonstration of multiple hypodense hepatic foci the largest measuring up to 1.2 cm in the left hepatic lobe, stable No biliary ductal dilatation is present. The gallbladder is unremarkable with no evidence of radiopaque gallstones, gallbladder wall thickening, or obvious pericholecystic inflammatory changes. PANCREAS: Mild atrophy of the pancreas. SPLEEN: Unremarkable. ADRENAL GLANDS: Unremarkable. KIDNEYS AND URETERS: The kidneys are normal in size, shape, and attenuation. No hydronephrosis, hydroureter, or calculi seen. No perinephric stranding. BLADDER: Unremarkable. GASTROINTESTINAL TRACT: Small hiatal hernia. Colonic diverticulosis without acute diverticulitis. The small and large bowel are unremarkable. The appendix is unremarkable. ABDOMINAL WALL: Status post right inguinal repair. Small fat filled left inguinal hernia. LYMPH NODES: No enlarged lymph nodes per size criteria. VASCULAR: Abdominal aorta is nonaneurysmal. Atherosclerotic calcifications of the abdominal aorta and its branches. No evidence of contrast extravasation to suggest hemorrhage. PELVIC VISCERA: Prostate measures 5.2 cm. OSSEOUS STRUCTURES: Multilevel degenerative changes of the thoracolumbar lumbosacral spine. Osteopenia. Sclerotic focus right femoral head/neck statistically representing a bone island. Additional bone island noted in the left iliac wing. Levocurvature of the lumbar spine. CT/CT gi bleed abd pel wo/w IVcon IMPRESSION: 1. No acute process of the abdomen or pelvis identified. 2. No evidence of contrast extravasation to suggest hemorrhage. 3. Redemonstration of multiple hypodense hepatic foci the largest measuring up to 1.2 cm in the left hepatic lobe, stable. 4. Small hiatal hernia. 5. Colonic diverticulosis without acute diverticulitis. 6. Status post right inguinal repair. 7. Prostate measures 5.2 cm. 8. Osteopenia.
[2023-03-30 13:12] VITALS: BP 149/71; PULSE 112; RESP 17; TEMP 36.7; O2SAT 94; BMI 35.5
--- NOTE | 2023-03-30 13:18 | ED_ITS ---
HPI - General Adult General Chief complaint: General Medical Stated complaint: rectal bleeding Time Seen by Provider: 03/30/23 18:12 Source: patient Mode of arrival: ambulatory Limitations: no limitations History of Present Illness HPI narrative: Patient history of hypertension hyperlipidemia on baby aspirin history of colonic polyp in the colonoscopy 5 years ago, no history of hemorrhoids or rectal bleed in the past but with of the night as he felt uncomfortable and had bowel movement with blood clots without much stool went to sleep woke up at 04:00 o'clock again with a similar discomfort feeling and had this time dark blood only. No dizziness no weakness no fever or chills Related Data Home Medications Medication Instructions Recorded Confirmed aspirin 81 mg tablet,delayed 81 mg PO DAILY 01/16/20 03/30/23 release ipratropium 20 mcg-albuterol 100 1 puff inhalation Q6H PRN 01/16/20 03/30/23 mcg/actuation mist for inhalation Shortness Of Breath Or Wheezing (Combivent Respimat) vitamin B complex (B 1 tab PO DAILY 08/20/21 03/30/23 Complex-Vitamin B12 tablet) tacrolimus 0.1 % topical ointment topical 10/20/22 03/17/23 budesonide 160 mcg-glycopyr 9 2 inh inhalation BID 03/30/23 03/30/23 mcg-formot 4.8 mcg/actuation HFA inhaler (Breztri Aerosphere) meloxicam 15 mg tablet 7.5 mg PO DAILY PRN pain 03/30/23 03/30/23 Previous Rx's Medication Instructions Recorded betamethasone dipropionate 0.05 % 1 appl topical DAILY PRN skin 11/28/21 topical cream irritation #45 grams rosuvastatin 40 mg tablet 40 mg PO DAILY 90 days #90 tabs 04/28/22 ivabradine 5 mg tablet (Corlanor) 5 mg PO DAILY 90 days #90 tabs 06/27/22 diltiazem HCl 240 mg 240 mg PO DAILY 90 days #90 caps 11/12/22 capsule,extended release 24 hr omeprazole 40 mg capsule,delayed 40 mg PO DAILY #90 caps 11/12/22 release metformin 1,000 mg tablet 1,000 mg PO BID 90 days #180 tabs 02/11/23 duloxetine 20 mg capsule,delayed 20 mg PO DAILY #90 caps 03/29/23 release Allergies Allergy/AdvReac Type Severity Reaction Status Date / Time No Known Allergies Allergy Verified 03/17/23 08:32 Review of Systems 2 Review of Systems: Yes all other systems are reviewed and are negative [facility] Past Medical History Medical History Diabetes Dyslipidemia Hyperlipidemia Inappropriate sinus tachycardia Surgical History Hx of hernia repair Hx of cardiac cath Family History Family History Paternal Grandfather CAD (coronary artery disease) Father Pulmonary disease Maternal Grandmother Diabetes mellitus Social History Social History Housing: House Alcohol intake: current Alcohol intake frequency: holidays/special occasions only Patient Tobacco Use Status: Former Tobacco user Quit Date: quit 6 years ago e-Cigarette/Vaping Use: Never Used Second Hand Smoke Exposure: No Use of substances other than those prescribed or required for medical reasons: No Advance Directives: No Advance Directives Information Provided: No service: No Current occupational status: retired Cognitive needs: No Hearing needs: No Vision needs: No Physical Exam ED Vital Signs: Vital Signs - 24 hr 03/30/23 13:12 03/30/23 20:36 Temperature 98.0 F 98.1 F Pulse Rate 112 H 95 Respiratory Rate 17 18 Blood Pressure 149/71 H 139/60 Pulse Oximetry 94 95 Oxygen Delivery Method Room Air Room Air BMI result Body Mass Index 35.5 Appearance: Alert. Oriented X3. No acute distress. Eyes: No pallor or icterus ENT: Pharynx normal. Oral Mucosa moist Neck: Normal inspection. Neck supple. CVS: Normal heart rate and rhythm. Pulses normal. Respiratory: No respiratory distress. Equal air entry bilateral, Abdomen: Soft and nontender. Bowel sounds are present, no mass palpable, no CVA tenderness rectal: Maroon-colored stool++ Skin: Skin warm and dry. Normal skin color. Normal skin turgor. Extremities: No lower extremity edema. No calf tenderness Neuro: Oriented X 3. Course Course Course Narrative: RME:?73 yo male, hx of HTN, HDL, PVD, diabetes, lung nodules here for eval of rectal bleeding since 0000 this am. reports passing a few clots over the last 13 hours. Admits to blood in toilet bowl and on wiping. dark red in coloration. Not on AC. Reports increased flatus and abdominal discomfort , no pain, since early this morning. Last colonoscopy approx 10 yrs ago- removed 3 polyps. Denies fever, chills, N/V. endorses taking peptobismol 10 days ago. denies iron supplementation. basic labs, UA, OBS ordered in triage. Full HPI, ROS and PE to be performed by the primary ED provider. Medications Administered Generic Name Dose Route Start Last Admin Trade Name Freq PRN Reason Stop Dose Admin Insulin Human Lispro 0 unit 03/30/23 22:00 03/30/23 22:09 Insulin Lispro 100 Unit/Ml 3 Ml Vial SUBCUT Not Given Q6H [facility] Protocol Melatonin 6 mg 03/30/23 21:17 03/30/23 22:47 Melatonin 3 Mg Tablet PO 6 mg BEDTIME PRN Administration Insomnia Sodium Chloride 3 ml 03/31/23 00:00 03/31/23 01:12 0.9 % Sodium Chloride Flush 3 Ml Syringe IVFLUSH Not Given QSHIFT MIKKI Discontinued Medications Generic Name Dose Route Start Last Admin Trade Name Freq PRN Reason Stop Dose Admin Iohexol 85 ml 03/30/23 20:36 03/30/23 20:36 Iohexol 350 Mg/Ml 100 Ml Infus..Btl IV 03/30/23 20:37 85 ml ONCE ONE Administration Pantoprazole Sodium 80 mg 03/30/23 21:06 03/30/23 22:20 Pantoprazole Sodium 40 Mg/10 Ml Vial IVPUSH 03/30/23 21:07 80 mg ONCE ONE Administration Medical Decision Making Medical Decision Making [facility] Narrative: Patient has acute lower GI bleed with blood clots bleeding scan negative for major bleeding source at this time will admit for observation Differential Diagnosis Differential Diagnoses: The differential diagnosis associated with the presentation includes Patient has acute lower GI bleed likely from AV malformation no more active bleeding in the ER will admit patient to floor for observation H&H stable at this time Admission/Observation Consideration of admission/observation: Escalation of care including admission/observation considered Lab Data [facility] Lab Attestation statement: I reviewed the patient's lab results. 03/30/23 13:34 03/30/23 13:34 Labs: Lab Results 03/30/23 03/30/23 03/30/23 Range/Units 13:34 18:45 20:07 WBC 11.0 H (4.8-10.8) X10*3/uL RBC 5.80 (4.60-5.80) X10*6/uL Hgb 16.8 (14.0-18.0) g/dl Hct 52.2 H (42.0-52.0) % MCV 90.0 (80.0-98.0) fL MCH 29.0 (27.0-33.0) pg MCHC 32.2 (31.0-36.0) g/dl RDW 13.5 (11.0-16.0) % Plt Count 248 (160-400) X10*3/uL MPV 10.0 (9.4-12.4) fL Immature Gran % (Auto) 0.5 H (0.0-0.4) % Neut % (Auto) 72.8 (45-73) % Lymph % (Auto) 18.8 L (20-40) % Dodge % (Auto) 5.6 (2-11) % Eos % (Auto) 1.5 (0-4) % Baso % (Auto) 0.8 (0-2) % Lymph # (Auto) 2.1 (1.2-4.9) X10*3/uL Dodge # (Auto) 0.6 (0.1-1.2) X10*3/uL Eos # (Auto) 0.2 (0.0-0.4) X10*3/uL Baso # (Auto) 0.1 (0.0-0.2) X10*3/uL Abs Immat Gran (auto) 0.05 H (0.00-0.03) X10*3/uL Absolute Neuts (auto) 8.0 (2.0-8.3) x10*3/uL Absolute Nucleated RBC 0.000 (0.0-0.012) X10*3/uL Nucleated RBC % (auto) 0.0 (0.0-0.2) /100WBC PT 10.9 L (11.1-13.3) SEC INR 0.9 (0.9-1.1) Sodium 138 (135-145) mmol/L Potassium 3.9 (3.3-5.1) mmol/L Chloride 107 (96-108) mmol/L Carbon Dioxide 21 L (22-29) mmol/L Anion Gap 14 (12-20) BUN 15 (9-16) mg/dL Creatinine 0.90 (0.5-1.4) mg/dL Estim Creat Clear Calc 100.1 Estimated GFR > 60 Random Glucose 234 H (60-115) mg/dL Calcium 9.4 (8.4-10.2) mg/dL Magnesium 2.1 (1.6-2.6) mg/dL Lipase 16 (8-78) U/L Urine Color Yellow Urine Appearance Clear Urine pH 6.0 (5.0-9.0) Ur Specific Raymond 1.015 (1.005-1.025) Urine Protein Negative (Neg-Trace) mg/dL Urine Glucose (UA) 250 H (Negative) mg/dL Urine Ketones Negative (Negative) mg/dL Urine Blood Negative (Negative) Urine Nitrite Negative (Negative) Ur Leukocyte Esterase Trace H (Negative) Urine RBC 0-2 (0-2) /HPF Urine WBC 0-5 (0-5) /HPF Ur Squamous Epith Cells 0-2 (0-2) /HPF Urine Bacteria None Seen (None Seen) Hyaline Casts 0-2 (0-2) /LPF Stool Occult Blood POSITIVE (NEGATIVE) Blood Type O Positive Antibody Screen NEGATIVE Discharge Plan Discharge Clinical Impression: Acute GI bleeding Patient Disposition: Admitted As Inpatient
[2023-03-30 13:38] LABS: MANUAL DIFF FLAG NO
[2023-03-30 13:39] LABS: Basophils Absolute Auto 0.1 X10*3/uL (0.0-0.2); Basophils Percent Auto 0.8 % (0-2); Eosinophils Absolute Auto 0.2 X10*3/uL (0.0-0.4); Eosinophils Percent Auto 1.5 % (0-4); Hematocrit 52.2 % (42.0-52.0); Hemoglobin 16.8 g/dl (14.0-18.0); Imm Gran Abs Auto 0.05 X10*3/uL (0.00-0.03); Imm Gran Pct Auto 0.5 % (0.0-0.4); Lymphocytes Absolute Auto 2.1 X10*3/uL (1.2-4.9); Lymphocytes Percent Auto 18.8 % (20-40); Mean Corpuscular HGB Conc 32.2 g/dl (31.0-36.0); Monocytes Absolute Auto 0.6 X10*3/uL (0.1-1.2); Monocytes Percent Auto 5.6 % (2-11); Neutrophils Percent Auto 72.8 % (45-73); Platelet Count 248 X10*3/uL (160-400); Red Cell Distribution Width 13.5 % (11.0-16.0)
[2023-03-30 13:41] LABS: Appearance Urine Clear; Color Urine Yellow; Glucose Urine UA 250 mg/dL (Negative); Leukocyte Esterase Urine Trace (Negative); Nitrite Urine Negative (Negative); Specific Gravity - Urine 1.015 (1.005-1.025); UMIC TRIGGER UACC YES; Urine Blood Negative (Negative); Urine Ketones Negative (Negative); Urine Protein Negative (Neg-Trace)
[2023-03-30 13:55] LABS: Bacteria Urine None Seen (None Seen); Hyaline Casts Urine 0-2 /LPF (0-2); RBC Urine 0-2 /HPF (0-2); Squamous Epithelial Cell Urine 0-2 /HPF (0-2); WBC Urine 0-5 /HPF (0-5)
[2023-03-30 13:57] LABS: Anion Gap 14 (12-20); Blood Urea Nitrogen 15 mg/dL (9-16); Calcium 9.4 mg/dL (8.4-10.2); Carbon Dioxide 21 mmol/L (22-29); Chloride 107 mmol/L (96-108); Creatinine Clr Calc Pharmacy 100.1; Estimated Glomerular Filt Rate > 60; Glucose Random 234 mg/dL (60-115); Lipase 16 U/L (8-78); Magnesium 2.1 mg/dL (1.6-2.6); Potassium 3.9 mmol/L (3.3-5.1); Sodium 138 mmol/L (135-145)
[2023-03-30 18:53] LABS: OBS Int Ctl Valid YES; OBS1 POSITIVE (NEGATIVE)
[2023-03-30 20:18] LABS: INTERNATIONAL NORM RATIO 0.9 (0.9-1.1); Prothrombin Time 10.9 SEC (11.1-13.3)
[2023-03-30 20:36] VITALS: BP 139/60; PULSE 95; RESP 18; TEMP 36.7; O2SAT 95
[2023-03-30] MEDS: iohexoL 350 MG/ML 100 ML INFUS..BTL 85 ML IV (20:36)
--- NOTE | 2023-03-30 20:44 | PHA.MEDREC ---
Pharmacy Consult ? Medication Reconciliation Pharmacy has completed the medication reconciliation. Patient confirmed medications. Report he takes Breztri but it does not do anything. When asked about what creams he takes at home, he don't worry about the cream and did not confirm which he takes therefore left them unconfirmed. Ronda Lange, PharmD
--- NOTE | 2023-03-30 21:18 | PM.IMHP ---
History of Present Illness Date of Service: 03/30/23 Chief Complaint: GI bleed This is a 73-year-old male with pertinent history of xrh-drdcbll-wqcmospau diabetes mellitus, essential hypertension, mixed hyperlipidemia, mood disorder who presents to the emergency department for evaluation of blood in stools. Patient states he observed blood in stools 1 day prior to presentation. This was painless. Subsequently patient had an episode of passage of painless bright red blood on the day of presentation. Patient denies fever, chills or abdominal discomfort. States he does have symptoms of gastroesophageal reflux disease. He had an episode of blood in stools about 9 months ago which self resolved. Patient did not see a physician for it. States he is due for colonoscopy. Does not remember the details of his last colonoscopy. No chest discomfort, palpitations, shortness of breath, changes in urinary habits. In the emergency department, stool occult noted to be positive. Review of Systems Constitutional: Constitutional: Reports no additional constitutional complaints Cardiovascular: Cardiovascular: Reports no additional cardiovascular complaints Respiratory: Respiratory: Reports no additional respiratory complaints Gastrointestinal: Gastrointestinal: Reports hematochezia Genitourinary: Genitourinary: Reports no additional male genitourinary complaints [facility] Medical History Diabetes Dyslipidemia Hyperlipidemia Inappropriate sinus tachycardia Family History Paternal Grandfather CAD (coronary artery disease) Father Pulmonary disease Maternal Grandmother Diabetes mellitus Surgical History Hx of hernia repair Hx of cardiac cath Social History Housing: House Alcohol intake: current Alcohol intake frequency: holidays/special occasions only Patient Tobacco Use Status: Former Tobacco user Quit Date: quit 6 years ago e-Cigarette/Vaping Use: Never Used Second Hand Smoke Exposure: No Use of substances other than those prescribed or required for medical reasons: No Advance Directives: No Advance Directives Information Provided: No service: No Current occupational status: retired Cognitive needs: No Hearing needs: No Vision needs: No Meds Allergies Allergy/AdvReac Type Severity Reaction Status Date / Time No Known Allergies Allergy Verified 03/17/23 08:32 Home Medications Medication Instructions Recorded Confirmed Last Taken Type aspirin 81 mg tablet,delayed 81 mg PO DAILY 01/16/20 03/30/23 Unknown History release ipratropium 20 mcg-albuterol 100 1 puff inhalation Q6H PRN 01/16/20 03/30/23 Unknown History mcg/actuation mist for inhalation Shortness Of Breath Or Wheezing (Combivent Respimat) vitamin B complex (B 1 tab PO DAILY 08/20/21 03/30/23 Unknown History Complex-Vitamin B12 tablet) tacrolimus 0.1 % topical ointment topical 10/20/22 03/17/23 Unknown History budesonide 160 mcg-glycopyr 9 2 inh inhalation BID 03/30/23 03/30/23 Unknown History mcg-formot 4.8 mcg/actuation HFA inhaler (Breztri Aerosphere) meloxicam 15 mg tablet 7.5 mg PO DAILY PRN pain 03/30/23 03/30/23 Unknown History Physical Exam Vital Signs and Narrative: Vital Signs: Last Vital Signs Temp 98.1 F 03/30/23 20:36 Pulse 95 03/30/23 20:36 Resp 18 03/30/23 20:36 BP 139/60 03/30/23 20:36 Pulse Ox 95 03/30/23 20:36 O2 Del Method Room Air 03/30/23 20:36 BMI result Body Mass Index 35.5 Middle-aged male lying in bed in no distress Neck supple, no JVD Regular rate and rhythm, S1-S2 heard Regular breath sounds bilaterally, no wheezing or crackles appreciated Abdomen soft nontender, no guarding, no rigidity Patient is awake, alert and oriented to self, place, time and person ; no focal motor deficit Psych: Normal mood No pedal edema Results Labs 03/30/23 13:34 03/30/23 13:34 Labs: Laboratory Results - last 24 hr 03/30/23 03/30/23 03/30/23 13:34 18:45 20:07 MCV 90.0 MCH 29.0 MCHC 32.2 RDW 13.5 Plt Count 248 MPV 10.0 Immature Gran % (Auto) 0.5 H Neut % (Auto) 72.8 Lymph % (Auto) 18.8 L [place] % (Auto) 5.6 Eos % (Auto) 1.5 Baso % (Auto) 0.8 Lymph # (Auto) 2.1 [place] # (Auto) 0.6 Eos # (Auto) 0.2 Baso # (Auto) 0.1 Abs Immat Gran (auto) 0.05 H Absolute Neuts (auto) 8.0 Absolute Nucleated RBC 0.000 Nucleated RBC % (auto) 0.0 PT 10.9 L INR 0.9 Anion Gap 14 Estim Creat Clear Calc 100.1 Estimated GFR > 60 Random Glucose 234 H Calcium 9.4 Magnesium 2.1 Lipase 16 Urine Color Yellow Urine Appearance Clear Urine pH 6.0 Ur Specific [place] 1.015 Urine Protein Negative Urine Glucose (UA) 250 H Urine Ketones Negative Urine Blood Negative Urine Nitrite Negative Ur Leukocyte Esterase Trace H Urine RBC 0-2 Urine WBC 0-5 Ur Squamous Epith Cells 0-2 Urine Bacteria None Seen Hyaline Casts 0-2 Stool Occult Blood POSITIVE Blood Type O Positive Antibody Screen NEGATIVE Assessment and Plan (1) Acute GI bleeding: Status: Acute Plan This is a 73-year-old male with pertinent history of qbs-mvtjtpa-pxoscmggk diabetes mellitus, essential hypertension, mixed hyperlipidemia, mood disorder who presents to the emergency department for evaluation of blood in stools #. Acute GI bleed: Hold aspirin. Initiating IV Protonix. Consulted Gastroenterology, appreciate assistance. Closely monitor H&H #. Non insulin-dependent diabetes mellitus with hyperglycemia: Initiating Accu-Cheks with sliding scale insulin every 6 hours. Hold home metformin #. Mixed hyperlipidemia: On statin #. Essential hypertension: Hold antihypertensives in the setting of acute GI bleed. #. Mood disorder: Continue home mood stabilizers Med rec pending DVT prophylaxis: Mechanical Full code Admit as inpatient and will require two night minimum hospital stay for close monitoring of hemodynamics, evaluation of acute GI bleed, monitoring of H&H (as above), which is not possible in a lesser acute setting. Specialist consult pending Quality Stroke Does the patient have a stroke diagnosis?: No VTE Prior VTE?: No VTE Risk Level:: Medical - moderate - high VTE Device Contraindication: N/A - Device Ordered VTE Drug Contraindication: Treatment Not Indicated
[2023-03-30 21:49] LABS: Glucose, Whole Blood 123 mg/dL (60-115)
[2023-03-30] MEDS: Pantoprazole Sodium 40 MG/10 ML VIAL 80 MG IVPUSH (22:20)
[2023-03-30] MEDS: Melatonin 3 MG TABLET 6 MG PO (22:47)
[2023-03-30 22:51] VITALS: BP 127/73; PULSE 93; RESP 14; O2SAT 95
--- NOTE | 2023-03-30 23:04 | PC.NURSE ---
hand off to marina napoles
[2023-03-31] VITALS (7 sets, daily range): BP systolic 124–188; BP diastolic 62–88; PULSE 86–104; RESP 12–20; TEMP 36–36.8; O2SAT 94–96
[2023-03-31 06:06] LABS: Glucose, Whole Blood 165 mg/dL (60-115)
--- NOTE | 2023-03-31 06:38 | PC.NURSE ---
delay in insulin administration due to pyxis issue. unable to obtain open drawer due to hardware issue.
[2023-03-31 06:49] LABS: Hematocrit 48.7 % (42.0-52.0); Hemoglobin 15.3 g/dl (14.0-18.0); Mean Corpuscular HGB Conc 31.4 g/dl (31.0-36.0); Mean Corpuscular Volume 92.4 fL (80.0-98.0); Mean Platelet Volume 10.4 fL (9.4-12.4); Platelet Count 187 X10*3/uL (160-400); Red Blood Count 5.27 X10*6/uL (4.60-5.80); Red Cell Distribution Width 13.7 % (11.0-16.0); White Blood Count 9.1 X10*3/uL (4.8-10.8)
[2023-03-31 06:55] LABS: Anion Gap 13 (12-20); Blood Urea Nitrogen 14 mg/dL (9-16); Calcium 8.7 mg/dL (8.4-10.2); Carbon Dioxide 24 mmol/L (22-29); Chloride 107 mmol/L (96-108); Creatinine Clr Calc Pharmacy 104.8; Estimated Glomerular Filt Rate > 60; Glucose Random 162 mg/dL (60-115); Potassium 4.6 mmol/L (3.3-5.1); Sodium 139 mmol/L (135-145)
[2023-03-31] MEDS: Pantoprazole Sodium 40 MG/10 ML VIAL IVPUSH ×2 (07:08→17:52)
--- NOTE | 2023-03-31 08:27 | PC.NURSE ---
this RN resumed care of pt at this time. vss and up to date. nsr on the panel monitor. pt denies pain/any other sx. pt remains NPO. resting comfortably in no apparent distress. no sob/wob noted. respirations even and unlabored. pt waiting bed assignment at this time. call williamson placed within reach.
[2023-03-31] MEDS: DULoxetine HCl 20 MG CAPSULE.DR PO (08:56)
[2023-03-31] MEDS: Multivitamin TABLET 1 TAB PO (08:56)
[2023-03-31] MEDS: Atorvastatin Calcium 80 MG TABLET PO (08:56)
--- NOTE | 2023-03-31 08:58 | PC.NURSE ---
medication administered per provider order.
--- NOTE | 2023-03-31 09:16 | MHC.CM.PN ---
CM met with Patient in the ED @ bedside and addressed IMM with him (original given to Patient and a copy will be placed on the chart). 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 Home self care is the goal and CM has initiated and will follow for dc planning. PCP is Dr. Geovani Samayoa.
[2023-03-31 10:11] LABS: Glucose, Whole Blood 141 mg/dL (60-115)
--- NOTE | 2023-03-31 10:38 | PC.NURSE ---
vss and up to date. nsr on the environmental monitoring specialist. pt still denies pain/has no complaints at this time. pt continues to rest comfortably in no apparent distress. waiting for bed assignment at this time. respirations remain even and unlabored. call williamson placed within reach.
--- NOTE | 2023-03-31 13:16 | HO.PM.IMPN ---
Subjective Subjective Date of Service: 03/31/23 Interval History: f/u on rectal bleed, no further bleeding, H/H stable. Physical Exam Vital Signs: Vital Signs: Last Vital Signs Temp 98.2 F 03/31/23 10:37 Pulse 86 03/31/23 10:37 Resp 16 03/31/23 10:37 BP 132/62 03/31/23 10:37 Pulse Ox 94 03/31/23 10:37 O2 Del Method Room Air 03/31/23 10:37 BMI result Body Mass Index 35.5 Const: Other: General: AO X 3, no acute distress Resp: CTA bilateral CVS: S1,S2,RRR GI: +BS, NT, no distention Skin: No rash Neuro: motor grossly intact Psych: appropriate affect Objective Data Active Medications Acetaminophen (Acetaminophen 325 Mg Tablet) 650 mg PO Q6H PRN PRN Reason: Pain, Mild (Pain Scale 1-3) Albuterol/Ipratropium (Albuterol/Iprat 2.5/0.5mg 3 Ml Ampul.Neb) 3 ml INHALE Q6H PRN PRN Reason: Shortness Of Breath Or Wheezing Atorvastatin Calcium (Atorvastatin Calcium 80 Mg Tablet) 80 mg PO DAILY [facility] Last Admin: 03/31/23 08:56 Dose: 80 mg Documented By: CYDNEY Dextrose (Dextrose 50 % 25 Gm/50 Ml Syringe) 25 gm IVPUSH Q15M PRN; Protocol PRN Reason: per Hypoglycemia Standing Ord. Duloxetine HCl (Duloxetine Hcl 20 Mg Capsule.Dr) 20 mg PO DAILY [facility] Last Admin: 03/31/23 08:56 Dose: 20 mg Documented By: CYDNEY Glucose (Glucose Gel 15 Gm Gel..Gram.) 15 gm PO Q15M PRN; Protocol PRN Reason: per Hypoglycemia Standing Ord. Insulin Human Lispro (Insulin Lispro 100 Unit/Ml 3 Ml Vial) 0 unit SUBCUT Q6H [facility]; Protocol Last Admin: 03/31/23 10:18 Dose: Not Given Documented By: CYDNEY Non-Admin Reason: No Insulin Coverage Melatonin (Melatonin 3 Mg Tablet) 6 mg PO BEDTIME PRN PRN Reason: Insomnia Last Admin: 03/30/23 22:47 Dose: 6 mg Documented By: BRYAN Multivitamins/Vitamin C (Multivitamin Tablet) 1 tab PO DAILY [facility] Last Admin: 03/31/23 08:56 Dose: 1 tab Documented By: CYDNEY Non-Formulary Medication (Ivabradine [Corlanor]) 5 mg PO DAILY [facility] Non-Formulary Medication (Odknejzeog-Tvavleqc-Hvxsiylulw [Breztri Aerosphere]) 2 inhalation INHALE BID [facility] Ondansetron HCl (Ondansetron Hcl 4 Mg/2 Ml Vial) 4 mg IVPUSH Q8H PRN PRN Reason: Nausea and Vomiting Pantoprazole Sodium (Pantoprazole Sodium 40 Mg/10 Ml Vial) 40 mg IVPUSH BID@0630,1630 [facility] Last Admin: 03/31/23 07:08 Dose: 40 mg Documented By: BERNA Sodium Chloride (0.9 % Sodium Chloride Flush 3 Ml Syringe) 3 ml IVFLUSH QSHIFT [facility] Last Admin: 03/31/23 07:40 Dose: Not Given Documented By: CYDNEY Non-Admin Reason: Patient Asleep Labs 03/31/23 06:11 03/31/23 06:11 Labs: Laboratory Results - last 24 hr 03/30/23 03/30/23 03/30/23 13:34 18:45 20:07 MCV 90.0 MCH 29.0 MCHC 32.2 RDW 13.5 Plt Count 248 MPV 10.0 Immature Gran % (Auto) 0.5 H Neut % (Auto) 72.8 Lymph % (Auto) 18.8 L [place] % (Auto) 5.6 Eos % (Auto) 1.5 Baso % (Auto) 0.8 Lymph # (Auto) 2.1 [place] # (Auto) 0.6 Eos # (Auto) 0.2 Baso # (Auto) 0.1 Abs Immat Gran (auto) 0.05 H Absolute Neuts (auto) 8.0 Absolute Nucleated RBC 0.000 Nucleated RBC % (auto) 0.0 PT 10.9 L INR 0.9 Anion Gap 14 Estim Creat Clear Calc 100.1 Estimated GFR > 60 POC Glucose Random Glucose 234 H Calcium 9.4 Magnesium 2.1 Lipase 16 Urine Color Yellow Urine Appearance Clear Urine pH 6.0 Ur Specific [place] 1.015 Urine Protein Negative Urine Glucose (UA) 250 H Urine Ketones Negative Urine Blood Negative Urine Nitrite Negative Ur Leukocyte Esterase Trace H Urine RBC 0-2 Urine WBC 0-5 Ur Squamous Epith Cells 0-2 Urine Bacteria None Seen Hyaline Casts 0-2 Stool Occult Blood POSITIVE Blood Type O Positive Antibody Screen NEGATIVE 03/30/23 03/31/23 03/31/23 21:43 06:02 06:11 MCV 92.4 MCH 29.0 MCHC 31.4 RDW 13.7 Plt Count 187 MPV 10.4 Immature Gran % (Auto) Neut % (Auto) Lymph % (Auto) [place] % (Auto) Eos % (Auto) Baso % (Auto) Lymph # (Auto) [place] # (Auto) Eos # (Auto) Baso # (Auto) Abs Immat Gran (auto) Absolute Neuts (auto) Absolute Nucleated RBC 0.000 Nucleated RBC % (auto) 0.0 PT INR Anion Gap 13 Estim Creat Clear Calc 104.8 Estimated GFR > 60 POC Glucose 123 H 165 H Random Glucose 162 H Calcium 8.7 D Magnesium Lipase Urine Color Urine Appearance Urine pH Ur Specific [place] Urine Protein Urine Glucose (UA) Urine Ketones Urine Blood Urine Nitrite Ur Leukocyte Esterase Urine RBC Urine WBC Ur Squamous Epith Cells Urine Bacteria Hyaline Casts Stool Occult Blood Blood Type Antibody Screen 03/31/23 10:07 MCV MCH MCHC RDW Plt Count MPV Immature Gran % (Auto) Neut % (Auto) Lymph % (Auto) [place] % (Auto) Eos % (Auto) Baso % (Auto) Lymph # (Auto) [place] # (Auto) Eos # (Auto) Baso # (Auto) Abs Immat Gran (auto) Absolute Neuts (auto) Absolute Nucleated RBC Nucleated RBC % (auto) PT INR Anion Gap Estim Creat Clear Calc Estimated GFR POC Glucose 141 H Random Glucose Calcium Magnesium Lipase Urine Color Urine Appearance Urine pH Ur Specific [place] Urine Protein Urine Glucose (UA) Urine Ketones Urine Blood Urine Nitrite Ur Leukocyte Esterase Urine RBC Urine WBC Ur Squamous Epith Cells Urine Bacteria Hyaline Casts Stool Occult Blood Blood Type Antibody Screen Assessment and Plan (1) Acute GI bleeding: Status: Acute Plan 73-year-old male with pertinent history of zib-xhnpwwe-cjlsuzefn diabetes mellitus, essential hypertension, mixed hyperlipidemia, mood disorder who presents to the emergency department for evaluation of blood in stools Acute GI bleed: -Hold aspirin. - Initiating IV Protonix. - Gastroenterology eval Non insulin-dependent diabetes mellitus with hyperglycemia -hold metformin -SSI Mixed hyperlipidemia: On statin Essential hypertension: Hold Cardizem Mood disorder: Continue home mood stabilizers start diet if no procedure today DVT prophylaxis: Mechanical Full code Quality Stroke Does the patient have a stroke diagnosis?: No VTE Prior VTE?: No VTE Risk Level:: Medical - moderate - high VTE Device Contraindication: N/A - Device Ordered VTE Drug Contraindication: Treatment Not Indicated
--- NOTE | 2023-03-31 14:14 | PC.NURSE ---
diet order changed to clear liquid diet per provider order. kitchen called so tray can be obtained. vss and up to date. nsr on the cafeteria monitor. pt still denies pain/any other sx at this time. resting comfortably in no apparent distress. awaiting bed assignment at this time. family member bedside. call williamson placed within reach.
--- NOTE | 2023-03-31 14:21 | PC.NURSE ---
pt speaking w/ bearing ring assembler at this time.
--- NOTE | 2023-03-31 14:37 | MHC.SHP ---
Pre-Procedural Eval Section A - 24 Hr Update-Section A only Date of Service: 03/31/23 The patient is an INPATIENT: Yes Changes since office visit: No Cold of Flu in the past 2 weeks, No New Medical Problems, No Changes in Medication and No Patient answered all questions The patient has been examined within 24 hours of the surgical procedure. The History & Physical has been completed within 30 days and I have reviewed it.: Yes Section B - Complete if H&P > 30 days Chief Complaint: GI bleed Allergies: Allergies Allergy/AdvReac Type Severity Reaction Status Date / Time No Known Allergies Allergy Verified 03/17/23 08:32 Plan I have reviewed the history and physical and performed a pertinent physical examination on my patient. No changes have occurred unless specified. Time Spent With Patient Time: Total time managing care of this patient today ____ minutes.
--- NOTE | 2023-03-31 14:41 | PM.EVENT ---
Event Note Date of Service: 03/31/23 Event Note: GI consult dictated Colonoscopy planned for 04/01 for further evaluation of GI bleeding. Time Spent With Patient Time: Total time managing care of this patient today ____ minutes.
[2023-03-31] MEDS: PEG 3350/Na Sulf,Bicarb,Cl/KCL 4,000 ML SOLN.RECON 4000 ML PO (15:11)
[2023-03-31] MEDS: 0.9 % Sodium Chloride Flush 3 ML SYRINGE IVFLUSH (15:13)
--- NOTE | 2023-03-31 15:30 | PC.NURSE ---
admission worksheet completed. transport notified at this time.
[2023-03-31 16:35] LABS: Glucose, Whole Blood 112 mg/dL (60-115)
[2023-03-31 17:27] LABS: Hematocrit 51.8 % (42.0-52.0); Hemoglobin 16.5 g/dl (14.0-18.0); Mean Corpuscular HGB Conc 31.9 g/dl (31.0-36.0); Mean Corpuscular Hemoglobin 28.9 pg (27.0-33.0); Mean Corpuscular Volume 90.9 fL (80.0-98.0); Mean Platelet Volume 10.1 fL (9.4-12.4); Platelet Count 232 X10*3/uL (160-400); Red Cell Distribution Width 13.6 % (11.0-16.0); White Blood Count 10.5 X10*3/uL (4.8-10.8)
--- NOTE | 2023-03-31 19:52 | CONS_ITS ---
DATE OF SERVICE: 03/31/2023 REFERRING PHYSICIAN: Dr. Roberson REASON FOR CONSULTATION: Lower GI bleeding. HISTORY OF PRESENT ILLNESS: The patient is a pleasant 73-year-old man seen today in consultation at the request of Dr. Roberson. He reports developing the urge to move his bowels the day before admission and past clotted blood. He has second bowel movement the morning before admission with a large amount of darker red blood. There was no associated abdominal or rectal pain. He came to the emergency room where he was evaluated and a blood count showed a hematocrit of 52, which was down from 54 four days previous. A followup hematocrit was stable at 48. He has had no further bleeding since admission. He does report 1 episode of self-limited bright red blood per rectum approximately 9 months previous. He was evaluated with colonoscopy in September of 2018 with removal of hyperplastic polyps. He does have a prior history of adenomas. Endoscopy at the same time showed esophagitis, but no H pylori or Walker esophagus. PAST MEDICAL HISTORY: 1. Diabetes. 2. Hypertension. 3. Hyperlipidemia. 4. Mood disorder. 5. Gastroesophageal reflux disease. 6. Colon polyps as above. 7. Sinus tachycardia. CURRENT MEDICATIONS: His current medication list is reviewed in the chart. He does take aspirin on a daily basis. ALLERGIES: THERE ARE NONE REPORTED. FAMILY HISTORY: This is reviewed with the patient and is negative for underlying GI malignancy. SOCIAL HISTORY: There is no current tobacco, alcohol, or substance abuse. REVIEW OF SYSTEMS: SKIN: No pruritus. HEENT: Negative. CARDIOPULMONARY: No shortness of breath or chest pain. GASTROINTESTINAL: As above. GENITOURINARY: Negative. NEUROPSYCHIATRIC: Negative. PHYSICAL EXAMINATION: GENERAL: Shows a pleasant male, sitting comfortably on the bed. VITAL SIGNS: Reviewed in the electronic medical record and are stable. SKIN: Anicteric. HEENT: Shows no scleral icterus. NECK: Without lymphadenopathy or thyromegaly. LUNGS: Clear. HEART: Shows a regular rate and rhythm. S1, S2. No murmur. ABDOMEN: Soft without focal masses or tenderness. Bowel sounds are present. No organomegaly is noted. EXTREMITIES: Without edema. LABORATORY DATA AND IMAGING STUDIES: Reviewed. IMPRESSION: Rectal bleeding. We discussed the differential diagnosis for rectal bleeding, which includes hemorrhoids, diverticular disease, AVMs, and malignancy. I recommended further evaluation with colonoscopy. I have discussed risks and benefits of the procedure with him. He understands these and agrees to proceed. This will be scheduled for tomorrow. Thanks for asking me to see him. I will follow him in the hospital with you. MD MEENAKSHI Briones/TRACI / [id number] MTDD
[2023-03-31 20:45] LABS: Glucose, Whole Blood 159 mg/dL (60-115)
[2023-04-01] VITALS (9 sets, daily range): BP systolic 119–164; BP diastolic 57–75; PULSE 85–97; RESP 16–20; TEMP 36.4–37; O2SAT 92–95; BMI 35.5
[2023-04-01] MEDS: 0.9 % Sodium Chloride Flush 3 ML SYRINGE IVFLUSH ×4 (00:01→22:31)
[2023-04-01 03:45] LABS: Glucose, Whole Blood 146 mg/dL (60-115)
[2023-04-01] MEDS: Pantoprazole Sodium 40 MG/10 ML VIAL IVPUSH ×2 (05:58→17:03)
[2023-04-01 09:21] LABS: Glucose, Whole Blood 143 mg/dL (60-115)
[2023-04-01] MEDS: Atorvastatin Calcium 80 MG TABLET PO (09:24)
[2023-04-01] MEDS: DULoxetine HCl 20 MG CAPSULE.DR PO (09:24)
[2023-04-01] MEDS: Multivitamin TABLET 1 TAB PO (09:24)
--- NOTE | 2023-04-01 12:30 | HO.PM.IMPN ---
Subjective Subjective Date of Service: 04/01/23 <Betty Richeynena - Last Filed: 04/01/23 12:36> 04/01/23 <Byron Roberson MD - Last Filed: 04/01/23 14:27> Interval History: F/U on GIB. Says he's doing well, no new complaints or episodes. Denies abdominal pain, SOB, lightheadeness, nausea/vomiting, fever/chills. <Betty Richeynena - Last Filed: 04/01/23 12:36> Review of Systems Review of Systems: Yes all other systems are reviewed and are negative <Betty Houseshawna - Last Filed: 04/01/23 12:36> Physical Exam Vital Signs: Vital Signs: Last Vital Signs Temp 97.7 F 04/01/23 11:02 Pulse 85 04/01/23 11:02 Resp 18 04/01/23 11:02 BP 137/64 04/01/23 11:02 Pulse Ox 93 04/01/23 11:02 O2 Del Method Room Air 04/01/23 11:02 BMI result Body Mass Index 35.5 <Betty Moore - Last Filed: 04/01/23 12:36> General: AO X 3, no acute distress Resp: CTA bilateral CVS: S1,S2,RRR GI: non-tender, non-distended Neuro: motor grossly intact Psych: appropriate affect <Betty Moore - Last Filed: 04/01/23 12:36> Objective Data Active Medications Acetaminophen (Acetaminophen 325 Mg Tablet) 650 mg PO Q6H PRN PRN Reason: Pain, Mild (Pain Scale 1-3) Albuterol/Ipratropium (Albuterol/Iprat 2.5/0.5mg 3 Ml Ampul.Neb) 3 ml INHALE Q6H PRN PRN Reason: Shortness Of Breath Or Wheezing Atorvastatin Calcium (Atorvastatin Calcium 80 Mg Tablet) 80 mg PO DAILY [facility] Last Admin: 04/01/23 09:24 Dose: 80 mg Documented By: SAGRARIO Dextrose (Dextrose 50 % 25 Gm/50 Ml Syringe) 25 gm IVPUSH Q15M PRN; Protocol PRN Reason: per Hypoglycemia Standing Ord. Duloxetine HCl (Duloxetine Hcl 20 Mg Capsule.Dr) 20 mg PO DAILY [facility] Last Admin: 04/01/23 09:24 Dose: 20 mg Documented By: SAGRARIO Glucose (Glucose Gel 15 Gm Gel..Gram.) 15 gm PO Q15M PRN; Protocol PRN Reason: per Hypoglycemia Standing Ord. Insulin Human Lispro (Insulin Lispro 100 Unit/Ml 3 Ml Vial) 0 unit SUBCUT Q6H [facility]; Protocol Last Admin: 04/01/23 09:21 Dose: Not Given Documented By: SAGRARIO Non-Admin Reason: No Insulin Coverage Melatonin (Melatonin 3 Mg Tablet) 6 mg PO BEDTIME PRN PRN Reason: Insomnia Last Admin: 03/30/23 22:47 Dose: 6 mg Documented By: BRYAN Multivitamins/Vitamin C (Multivitamin Tablet) 1 tab PO DAILY [facility] Last Admin: 04/01/23 09:24 Dose: 1 tab Documented By: SAGRARIO Non-Formulary Medication (Lavqtlwqxt-Xvlxxraz-Hgurymahzx [Breztri Aerosphere]) 2 inhalation INHALE BID [facility] Patient Own Medication ( Ivabradine [Corlanor ] 5 Mg Tablet) 5 mg PO DAILY [facility] Last Admin: 04/01/23 09:24 Dose: 5 mg Documented By: SAGRARIO Ondansetron HCl (Ondansetron Hcl 4 Mg/2 Ml Vial) 4 mg IVPUSH Q8H PRN PRN Reason: Nausea and Vomiting Pantoprazole Sodium (Pantoprazole Sodium 40 Mg/10 Ml Vial) 40 mg IVPUSH BID@0630,1630 [facility] Last Admin: 04/01/23 05:58 Dose: 40 mg Documented By: VALERIY Sodium Chloride (0.9 % Sodium Chloride Flush 3 Ml Syringe) 3 ml [facility] Last Admin: 04/01/23 09:24 Dose: 3 ml Documented By: SAGRARIO <Betty Moore - Last Filed: 04/01/23 12:36> Labs CBC & Chem 7: 03/31/23 17:05 03/31/23 06:11 <Betty Moore - Last Filed: 04/01/23 12:36> Labs: Laboratory Results - last 24 hr 03/31/23 03/31/23 03/31/23 16:32 17:05 20:41 MCV 90.9 MCH 28.9 MCHC 31.9 RDW 13.6 Plt Count 232 MPV 10.1 Absolute Nucleated RBC 0.000 Nucleated RBC % (auto) 0.0 POC Glucose 112 159 H 04/01/23 04/01/23 03:31 09:17 MCV MCH MCHC RDW Plt Count MPV Absolute Nucleated RBC Nucleated RBC % (auto) POC Glucose 146 H 143 H <Betty Richeynena - Last Filed: 04/01/23 12:36> Assessment and Plan (1) Acute GI bleeding: Status: Acute <Betty Richeygogoshawna - Last Filed: 04/01/23 12:36> Assessment and Plan: 73-year-old male with pertinent history of xzy-hggeawo-dhrjdtwft diabetes mellitus, essential hypertension, mixed hyperlipidemia, mood disorder who presents to the emergency department for evaluation of blood in stools Acute GI bleed: - Continue to hold aspirin. - Continue Protonix - Colonoscopy today per GI Non insulin-dependent diabetes mellitus with hyperglycemia - Diabetic diet and SSI Mixed hyperlipidemia: On statin Essential hypertension: Hold Cardizem Mood disorder: Continue home mood stabilizers DVT prophylaxis: Mechanical Full code Need for inpatient for procedure and continued monitoring for suspected GI bleed. <Betty Richeynena - Last Filed: 04/01/23 12:36> Quality Stroke Does the patient have a stroke diagnosis?: No <Betty Richeynena - Last Filed: 04/01/23 12:36> VTE Prior VTE?: No <Betty Galeanat Rossinena - Last Filed: 04/01/23 12:36> VTE Risk Level:: Medical - moderate - high <Betty Galeanat Rossinena - Last Filed: 04/01/23 12:36> VTE Device Contraindication: N/A - Device Ordered <Betty Mic Rossinena - Last Filed: 04/01/23 12:36> VTE Drug Contraindication: Treatment Not Indicated <Betty Galeanat Rossinena - Last Filed: 04/01/23 12:36>
[2023-04-01 13:49] LABS: Glucose, Whole Blood 139 mg/dL (60-115)
--- NOTE | 2023-04-01 15:02 | P.CONAN_ITS ---
HPI - Anesthesia Eval Consult details Narrative: for colonoscopy. suspected diverticular bleed PMFSH Active Problems Active Problems: All Active Problems (Updated 03/31/23 @ 01:32 by Cristi Feliz MD) Acute GI bleeding (Acute) Hematuria (Acute) Encounter for subsequent annual wellness visit (AWV) in Medicare patient (Acute) Lung nodule (Acute) Leukocytosis (Acute) Contusion of left chest wall (Acute) COVID-19 virus infection (Acute) Osteoarthritis of right knee (Acute) Infected sebaceous cyst (Acute) Right knee pain (Acute) Microscopic hematuria (Acute) Dermatitis (Acute) Cervical neck pain with evidence of disc disease (Acute) Encounter for annual wellness visit (AWV) in Medicare patient (Acute) Inguinal hernia recurrent unilateral (Acute) AV fistula (Acute) Screening PSA (prostate specific antigen) (Acute) Diabetes (Acute) Inappropriate sinus tachycardia (Acute) Moderate aortic stenosis (Acute) PVD (peripheral vascular disease) (Acute) Hyperlipidemia (Acute) Hypertension (Acute) Leg heaviness (Acute) Past Medical History Medical History Diabetes Dyslipidemia Hyperlipidemia Inappropriate sinus tachycardia Family History Family History Paternal Grandfather CAD (coronary artery disease) Father Pulmonary disease Maternal Grandmother Diabetes mellitus Family history of problems with anesthesia: No Surgical History Surgical History Hx of hernia repair Hx of cardiac cath History of Problems with Anesthesia: No Social History Social History Household Members: Children Housing: House Do you presently have visiting nurse or other home services: No Alcohol intake: current Alcohol intake frequency: holidays/special occasions only Patient Tobacco Use Status: Former Tobacco user Quit Date: 03/02/13 e-Cigarette/Vaping Use: Never Used Second Hand Smoke Exposure: No service: No Current occupational status: retired Cognitive needs: No Hearing needs: No Vision needs: No Meds Allergies Allergy/AdvReac Type Severity Reaction Status Date / Time No Known Allergies Allergy Verified 04/01/23 13:31 Active Medications: Current Medications Acetaminophen (Acetaminophen 325 Mg Tablet) 650 mg PO Q6H PRN PRN Reason: Pain, Mild (Pain Scale 1-3) Albuterol/Ipratropium (Albuterol/Iprat 2.5/0.5mg 3 Ml Ampul.Neb) 3 ml INHALE Q6H PRN PRN Reason: Shortness Of Breath Or Wheezing Atorvastatin Calcium (Atorvastatin Calcium 80 Mg Tablet) 80 mg PO DAILY [facility] Last Admin: 04/01/23 09:24 Dose: 80 mg Dextrose (Dextrose 50 % 25 Gm/50 Ml Syringe) 25 gm IVPUSH Q15M PRN; Protocol PRN Reason: per Hypoglycemia Standing Ord. Duloxetine HCl (Duloxetine Hcl 20 Mg Capsule.Dr) 20 mg PO DAILY [facility] Last Admin: 04/01/23 09:24 Dose: 20 mg Glucose (Glucose Gel 15 Gm Gel..Gram.) 15 gm PO Q15M PRN; Protocol PRN Reason: per Hypoglycemia Standing Ord. Insulin Human Lispro (Insulin Lispro 100 Unit/Ml 3 Ml Vial) 0 unit SUBCUT Q6H [facility]; Protocol Last Admin: 04/01/23 09:21 Dose: Not Given Melatonin (Melatonin 3 Mg Tablet) 6 mg PO BEDTIME PRN PRN Reason: Insomnia Last Admin: 03/30/23 22:47 Dose: 6 mg Multivitamins/Vitamin C (Multivitamin Tablet) 1 tab PO DAILY [facility] Last Admin: 04/01/23 09:24 Dose: 1 tab Non-Formulary Medication (Svbmdhgicg-Cuyatlvz-Lvdkjdxuhz [Breztri Aerosphere]) 2 inhalation INHALE BID [facility] Patient Own Medication ( Ivabradine [Corlanor ] 5 Mg Tablet) 5 mg PO DAILY [facility] Last Admin: 04/01/23 09:24 Dose: 5 mg Ondansetron HCl (Ondansetron Hcl 4 Mg/2 Ml Vial) 4 mg IVPUSH Q8H PRN PRN Reason: Nausea and Vomiting Pantoprazole Sodium (Pantoprazole Sodium 40 Mg/10 Ml Vial) 40 mg IVPUSH BID@0630,1630 [facility] Last Admin: 04/01/23 05:58 Dose: 40 mg Sodium Chloride (0.9 % Sodium Chloride Flush 3 Ml Syringe) 3 ml IVFLUSH QSHIFT [facility] Last Admin: 04/01/23 09:24 Dose: 3 ml Home Medications Medication Instructions Recorded Confirmed Last Taken Type aspirin 81 mg tablet,delayed 81 mg PO DAILY 11/16/20 01/29/24 Unknown History release ipratropium 20 mcg-albuterol 100 1 puff inhalation Q6H PRN 01/16/20 03/30/23 Unknown History mcg/actuation mist for inhalation Shortness Of Breath Or Wheezing (Combivent Respimat) vitamin B complex (B 1 tab PO DAILY 08/20/21 03/30/23 Unknown History Complex-Vitamin B12 tablet) tacrolimus 0.1 % topical ointment topical 10/20/22 03/17/23 Unknown History budesonide 160 mcg-glycopyr 9 2 inh inhalation BID 03/30/23 03/30/23 Unknown History mcg-formot 4.8 mcg/actuation HFA inhaler (3-V Biosciencesztri Aerosphere) meloxicam 15 mg tablet 7.5 mg PO DAILY PRN pain 03/30/23 03/30/23 Unknown History Exam Height,Weight and Vital Signs: Height 6 ft Weight 118.8 kg Last Vital Signs Temp 98.3 F 04/01/23 13:40 Pulse 93 04/01/23 13:40 Resp 16 04/01/23 13:40 BP 164/66 H 04/01/23 13:40 Pulse Ox 94 04/01/23 13:40 O2 Del Method Room Air 04/01/23 13:40 Pertinent Lab Results Pertinent Lab Results: Laboratory Tests 03/30/23 03/30/23 03/30/23 13:34 18:45 20:07 WBC 11.0 H RBC 5.80 Hgb 16.8 Hct 52.2 H MCV 90.0 MCH 29.0 MCHC 32.2 RDW 13.5 Plt Count 248 MPV 10.0 Immature Gran % (Auto) 0.5 H Neut % (Auto) 72.8 Lymph % (Auto) 18.8 L [place] % (Auto) 5.6 Eos % (Auto) 1.5 Baso % (Auto) 0.8 Lymph # (Auto) 2.1 [place] # (Auto) 0.6 Eos # (Auto) 0.2 Baso # (Auto) 0.1 Abs Immat Gran (auto) 0.05 H Absolute Neuts (auto) 8.0 Absolute Nucleated RBC 0.000 Nucleated RBC % (auto) 0.0 PT 10.9 L INR 0.9 Sodium 138 Potassium 3.9 Chloride 107 Carbon Dioxide 21 L Anion Gap 14 BUN 15 Creatinine 0.90 Estim Creat Clear Calc 100.1 Estimated GFR > 60 POC Glucose Random Glucose 234 H Calcium 9.4 Magnesium 2.1 Lipase 16 Urine Color Yellow Urine Appearance Clear Urine pH 6.0 Ur Specific Honor 1.015 Urine Protein Negative Urine Glucose (UA) 250 H Urine Ketones Negative Urine Blood Negative Urine Nitrite Negative Ur Leukocyte Esterase Trace H Urine RBC 0-2 Urine WBC 0-5 Ur Squamous Epith Cells 0-2 Urine Bacteria None Seen Hyaline Casts 0-2 Stool Occult Blood POSITIVE Blood Type O Positive Antibody Screen NEGATIVE 03/30/23 03/31/23 03/31/23 21:43 06:02 06:11 WBC 9.1 RBC 5.27 Hgb 15.3 Hct 48.7 MCV 92.4 MCH 29.0 MCHC 31.4 RDW 13.7 Plt Count 187 MPV 10.4 Immature Gran % (Auto) Neut % (Auto) Lymph % (Auto) [place] % (Auto) Eos % (Auto) Baso % (Auto) Lymph # (Auto) [place] # (Auto) Eos # (Auto) Baso # (Auto) Abs Immat Gran (auto) Absolute Neuts (auto) Absolute Nucleated RBC 0.000 Nucleated RBC % (auto) 0.0 PT INR Sodium 139 Potassium 4.6 Chloride 107 Carbon Dioxide 24 Anion Gap 13 BUN 14 Creatinine 0.86 Estim Creat Clear Calc 104.8 Estimated GFR > 60 POC Glucose 123 H 165 H Random Glucose 162 H Calcium 8.7 D Magnesium Lipase Urine Color Urine Appearance Urine pH Ur Specific Honor Urine Protein Urine Glucose (UA) Urine Ketones Urine Blood Urine Nitrite Ur Leukocyte Esterase Urine RBC Urine WBC Ur Squamous Epith Cells Urine Bacteria Hyaline Casts Stool Occult Blood Blood Type Antibody Screen 03/31/23 03/31/23 03/31/23 10:07 16:32 17:05 WBC 10.5 RBC 5.70 Hgb 16.5 Hct 51.8 MCV 90.9 MCH 28.9 MCHC 31.9 RDW 13.6 Plt Count 232 MPV 10.1 Immature Gran % (Auto) Neut % (Auto) Lymph % (Auto) [place] % (Auto) Eos % (Auto) Baso % (Auto) Lymph # (Auto) [place] # (Auto) Eos # (Auto) Baso # (Auto) Abs Immat Gran (auto) Absolute Neuts (auto) Absolute Nucleated RBC 0.000 Nucleated RBC % (auto) 0.0 PT INR Sodium Potassium Chloride Carbon Dioxide Anion Gap BUN Creatinine Estim Creat Clear Calc Estimated GFR POC Glucose 141 H 112 Random Glucose Calcium Magnesium Lipase Urine Color Urine Appearance Urine pH Ur Specific Honor Urine Protein Urine Glucose (UA) Urine Ketones Urine Blood Urine Nitrite Ur Leukocyte Esterase Urine RBC Urine WBC Ur Squamous Epith Cells Urine Bacteria Hyaline Casts Stool Occult Blood Blood Type Antibody Screen 03/31/23 04/01/23 04/01/23 20:41 03:31 09:17 WBC RBC Hgb Hct MCV MCH MCHC RDW Plt Count MPV Immature Gran % (Auto) Neut % (Auto) Lymph % (Auto) [place] % (Auto) Eos % (Auto) Baso % (Auto) Lymph # (Auto) [place] # (Auto) Eos # (Auto) Baso # (Auto) Abs Immat Gran (auto) Absolute Neuts (auto) Absolute Nucleated RBC Nucleated RBC % (auto) PT INR Sodium Potassium Chloride Carbon Dioxide Anion Gap BUN Creatinine Estim Creat Clear Calc Estimated GFR POC Glucose 159 H 146 H 143 H Random Glucose Calcium Magnesium Lipase Urine Color Urine Appearance Urine pH Ur Specific Honor Urine Protein Urine Glucose (UA) Urine Ketones Urine Blood Urine Nitrite Ur Leukocyte Esterase Urine RBC Urine WBC Ur Squamous Epith Cells Urine Bacteria Hyaline Casts Stool Occult Blood Blood Type Antibody Screen 04/01/23 13:45 WBC RBC Hgb Hct MCV MCH MCHC RDW Plt Count MPV Immature Gran % (Auto) Neut % (Auto) Lymph % (Auto) [place] % (Auto) Eos % (Auto) Baso % (Auto) Lymph # (Auto) [place] # (Auto) Eos # (Auto) Baso # (Auto) Abs Immat Gran (auto) Absolute Neuts (auto) Absolute Nucleated RBC Nucleated RBC % (auto) PT INR Sodium Potassium Chloride Carbon Dioxide Anion Gap BUN Creatinine Estim Creat Clear Calc Estimated GFR POC Glucose 139 H Random Glucose Calcium Magnesium Lipase Urine Color Urine Appearance Urine pH Ur Specific Honor Urine Protein Urine Glucose (UA) Urine Ketones Urine Blood Urine Nitrite Ur Leukocyte Esterase Urine RBC Urine WBC Ur Squamous Epith Cells Urine Bacteria Hyaline Casts Stool Occult Blood Blood Type Antibody Screen Airway Mallampati Class: II TM Dist: >3cm Neck ROM: Full Loose/Missing/Broken Teeth: Yes, Upper and Lower Heart: ok Lungs: ok, Sat 94% room air. Assessment and Plan Assessment Anesthesia Assessment: Anesthesia Plan Discussed and Chart Reviewed Final Anesthetic Review Family History of Problems with Anesthesia: No History of Problems with Anesthesia: No NPO: Yes ASA Class: III Final Preanesthetic Review: No Changes in Pt Med Stat, Meds/Allgs Chart Reviewed, Consent Obtained/Reviewed and Anes Risks/Benef Reviewed Patient Risk: Intermediate Procedure Risk: Low Assessment/Block/Sedation in SS: Assess/Block/Sedation-SS Anesthetic Plan Anesthetic Plan: MAC: and Agree w/ Assess. and Plan Disposition: Standard PACU
--- NOTE | 2023-04-01 15:20 | PM.EVENT ---
Event Note Date of Service: 04/01/23 Event Note: Colonoscopy dictated no bleeding sigmoid diverticulosis 4 polyps under 10 mm snared. Rec: advance diet d/c when stable hold asa [id number] Time Spent With Patient Time: Total time managing care of this patient today ____ minutes.
--- NOTE | 2023-04-01 15:23 | PM.OP ---
Brief Operative Note Date of Service: 04/01/23 Pre-op diagnosis: gi bleed Post-op diagnosis: same Procedure: colonoscopy Surgeon: Ezekiel Luu MD Anesthesia: MAC Was an Telephone Assembler used for this Procedure?: No Estimated blood loss (mL): 5 Pathology: other Condition: stable Disposition: PACU
[2023-04-01 16:27] LABS: Glucose, Whole Blood 160 mg/dL (60-115)
--- NOTE | 2023-04-01 19:39 | OP_ITS ---
DATE OF SERVICE: 04/01/2023 SURGEON: Ezekiel Luu MD INDICATIONS: GI bleeding. PREOPERATIVE DIAGNOSIS: POSTOPERATIVE DIAGNOSIS: PROCEDURE PERFORMED: Colonoscopy to the terminal ileum with snare polypectomy. ESTIMATED BLOOD LOSS: COMPLICATIONS: ANESTHESIA: Monitored anesthesia care. ASSISTANTS: SPECIMENS: DESCRIPTION OF PROCEDURE: A history and physical was performed. The risks and benefits of the procedure were explained to the patient. Informed consent was obtained. The patient was placed in a left lateral decubitus position. A digital rectal exam was performed and revealed an enlarged prostate. The Olympus pediatric video colonoscope was introduced into the rectum and advanced to the cecum. The cecum was identified by transillumination, palpation, and identification of ileocecal valve. Examination was performed. The scope was removed. He tolerated the procedure well and was returned to the recovery area in stable condition. FINDINGS: The terminal ileum was examined and appeared normal. The visualized colonic mucosa was normal. There were some areas there were poorly seen due to residual liquid and formed stool. This was mainly present in the right colon and sigmoid. Multiple colonic polyps were identified and removed using a cold snare. These were located in the cecum, two at 75 cm and one in the rectum, all were less than 10 mm. There was moderate sigmoid diverticulosis without any evidence of diverticulitis or ongoing bleeding. Retroflexed examination showed some moderate-sized internal hemorrhoids. IMPRESSION: Colon polyps, diverticulosis. RECOMMENDATION: 1. Follow up the biopsy results. 2. The diverticulosis was the likely source for his bleeding. 3. Advance diet. 4. Hold aspirin for a minimum of 2 weeks. MD MEENAKSHI Briones/JORGEL / [id number]
[2023-04-01 21:33] LABS: Glucose, Whole Blood 149 mg/dL (60-115)
[2023-04-02 03:59] VITALS: BP 120/58; PULSE 101; RESP 18; TEMP 36.7; O2SAT 92
[2023-04-02 05:26] LABS: Glucose, Whole Blood 181 mg/dL (60-115)
[2023-04-02] MEDS: Insulin Lispro 100 UNIT/ML 3 ML VIAL SUBCUT (05:43)
[2023-04-02] MEDS: Pantoprazole Sodium 40 MG/10 ML VIAL IVPUSH (05:44)
[2023-04-02 07:12] LABS: Hematocrit 46.8 % (42.0-52.0); Hemoglobin 15.2 g/dl (14.0-18.0); Mean Corpuscular HGB Conc 32.5 g/dl (31.0-36.0); Mean Corpuscular Hemoglobin 29.5 pg (27.0-33.0); Mean Corpuscular Volume 90.9 fL (80.0-98.0); Platelet Count 203 X10*3/uL (160-400); Red Blood Count 5.15 X10*6/uL (4.60-5.80); Red Cell Distribution Width 13.7 % (11.0-16.0); White Blood Count 8.8 X10*3/uL (4.8-10.8)
[2023-04-02 07:13] VITALS: BP 138/63; PULSE 88; RESP 18; TEMP 36.1; O2SAT 92
[2023-04-02 07:35] LABS: Glucose, Whole Blood 149 mg/dL (60-115)
--- NOTE | 2023-04-02 07:59 | P.DS_ITS ---
DS: Providers Provider Date of Service: 04/02/23 Date of admission: 03/30/23 21:17 Primary care physician: LENA Ware- Consults: 03/30/23 22:04 Consult to Gastroenterology Routine Consulting Provider: Ezekiel Luu Reason for consultation: GI bleed DS: Diagnosis Discharge Diagnosis (1) Acute GI bleeding: Status: Acute DS: Summary Hospital Course Hospital Course: This 73 yo M with PMHx of nqf-mmddkkd-byohikrxi diabetes mellitus, essential hypertension, mixed hyperlipidemia, mood disorder presented to the ED on 03/30/2023 complaining of painless blood in stools that he noticed 1 day prior to presentation. Subsequently patient had an episode of passage of painless bright red blood on the day of presentation.He reports he had a similar episode approximately 9 months prior that resolved sponatneously. Patient denied fever, chills or abdominal discomfort. States he does have symptoms of gastroesophageal reflux disease. In ED his workup showed stable of hemoglobin 16.8 and hematocrit of 52.2, WBC slightly elevated at 11k, blood glucose of 234. CT of abdomen and pelvis showed no acute process of the abdomen or pelvis identified and no evidence of contrast extravasation to suggest hemorrhage. CT noted colonic diverticulosis without acute diverticulitis. IV Protonix was initiated, aspirin and antihypertensives were held, and patient was admitted. Patient was evaluated by gastroenterology (Dr. Luu) on 03/31/23 who recommended patient for colonscopy which was completed on 04/01/23. Colonoscopy showed polyps and diverticulosis. Dr. Luu concluded bleeding was most likely due to the diverticulosis and recommended patient hold aspirin for minimum of 2 weeks, follow up for biopsy results of polyps, and advance his diet. Patient tolerated procedure and diet. His H/H on 04/02/23 is 15.2/46.8 and he is feeling well with no new episodes of melena/hematochezia. He will be discharged and should follow up with PCP to re-initiate ASA. Non insulin-dependent diabetes mellitus with hyperglycemia: - Restart home Mixed hyperlipidemia: - Continue statin Essential hypertension: - Continue cardizem Mood disorder: - Continue home mood stabilizers Time Attestation Discharge coordination time: Greater than 30 minutes Quality: Safe Use of Opioids Does Pt have an Active Cancer Diagnosis on the Problem List?: No Quality: Stroke Does the patient have a stroke diagnosis?: No Physical Exam Vital Signs: Vital Signs: Last Vital Signs Temp 96.9 F 04/02/23 07:13 Pulse 88 04/02/23 07:13 Resp 18 04/02/23 07:13 BP 138/63 04/02/23 07:13 Pulse Ox 92 04/02/23 07:13 O2 Del Method Room Air 04/02/23 07:13 BMI result Body Mass Index 35.5 General: AO X 3, no acute distress Resp: CTA bilateral CVS: S1,S2,RRR GI: non-tender, non-distended, BS present Neuro: motor grossly intact Psych: appropriate affect DS: Data Data Completed and Pending Pending studies at discharge: Pending at discharge 04/01/23 15:05 Surgical [PTH] Routine Labs on day of discharge: Laboratory Results - last 24 hr 04/01/23 04/01/23 04/01/23 09:17 13:45 16:23 WBC RBC Hgb Hct MCV MCH MCHC RDW Plt Count MPV Absolute Nucleated RBC Nucleated RBC % (auto) POC Glucose 143 H 139 H 160 H 04/01/23 04/02/23 04/02/23 20:07 05:22 06:33 WBC 8.8 RBC 5.15 Hgb 15.2 Hct 46.8 MCV 90.9 MCH 29.5 MCHC 32.5 RDW 13.7 Plt Count 203 MPV 10.0 Absolute Nucleated RBC 0.000 Nucleated RBC % (auto) 0.0 POC Glucose 149 H 181 H 04/02/23 07:15 WBC RBC Hgb Hct MCV MCH MCHC RDW Plt Count MPV Absolute Nucleated RBC Nucleated RBC % (auto) POC Glucose 149 H Discharge Plan Discharge Anticipated Discharge Date/Time: 04/02/23 09:34 Patient Disposition: Home, Self-Care Discharge Diagnosis: Acute lower GI bleed likely due to diverticulosis Referrals: Geovani Samayoa, [facility] [Primary Care Provider] - 1 Week Discharge Medications: Continued rosuvastatin 40 mg tablet 40 mg PO DAILY 90 Days Qty: 90 3RF Corlanor 5 mg tablet 5 mg PO DAILY 90 Days Qty: 90 3RF Rx Instructions: must administer with a meal/food diltiazem HCl 240 mg capsule,extended release 24hr 240 mg PO DAILY 90 Days Qty: 90 3RF omeprazole 40 mg capsule,delayed release(DR/EC) 40 mg PO DAILY Qty: 90 3RF metformin 1,000 mg tablet 1,000 mg PO BID 90 Days Qty: 180 1RF duloxetine 20 mg capsule,delayed release(DR/EC) 20 mg PO DAILY Qty: 90 1RF Breztri Aerosphere 160-9-4.8 mcg/actuation Hfa Aerosol Inhaler 2 inh INHALATION BID meloxicam 15 mg tablet 7.5 mg PO DAILY PRN (Reason: pain) Rx Instructions: use sparingly due to diabetes vitamin B complex [B Complex-Vitamin B12] Tablet 1 tab PO DAILY betamethasone dipropionate 0.05 % cream 1 appl topical DAILY PRN (Reason: skin irritation) Qty: 45 0RF Combivent Respimat 20-100 mcg/actuation mist 1 puff inhalation Q6H PRN (Reason: Shortness Of Breath Or Wheezing) tacrolimus 0.1 % ointment topical Held aspirin 81 mg tablet,delayed release (DR/EC) 81 mg PO DAILY Hold Instructions: Resume on 04/15/23. Discharge Orders: Discharge Order (Routine); Ordered 04/02/23 Ordered By: Byron Roberson Diet: Diabetic diet Activity on Discharge: As tolerated Stand Alone Forms: Patient Portal Discharge page Care Plan Goals: Recover from GI bleed. Follow up with GI for pathology on polyps. Health Concerns: Diverticulosis, colonic polyps, diabetes mellitus, HTN, HLD Plan of Treatment: Follow up with GI for polyp biopsy results. Do not take aspirin for a minimum of 2 weeks in the setting of recent GI bleed. Follow up with your primary care provider in 1 week. Continue other home medications. Assessment: As above
[2023-04-02] MEDS: Multivitamin TABLET 1 TAB PO (08:07)
[2023-04-02] MEDS: 0.9 % Sodium Chloride Flush 3 ML SYRINGE IVFLUSH (08:07)
[2023-04-02] MEDS: DULoxetine HCl 20 MG CAPSULE.DR PO (08:07)
[2023-04-02] MEDS: Atorvastatin Calcium 80 MG TABLET PO (08:07)
--- NOTE | 2023-04-02 10:26 | MHC.CM.PN ---
Pt has been medically cleared for DC. He will go home via family transport and self care is his DC plan.
--- NOTE | 2023-04-02 14:14 | HO.POSTANES ---
Post Anesthesia Evaluation Post Anesthesia Evaluation Date of Service: 04/02/23 Vital Signs: Vital Signs Temp Pulse Resp BP Pulse Ox O2 Del Method 04/02/23 07:13 96.9 F 88 18 138/63 92 Room Air 04/02/23 03:59 98.1 F 101 H 18 120/58 L 92 Room Air Anesthesia: Monitored Mental Status: Awake Pain Control: Satisfactory Nausea/Vomiting: None Hydration: Adequate Anesthesia-Related Issues: No Anes. Related Issues
== END 2023-04-02 10:57 | disposition home or self-care (01) | DRG 379 ==
LOC: HO.ED 18:12 → HO.EDOVER 21:59 → HO.IMC 03-31 15:18
PROVIDERS: Internal Medicine Gastroenterology; Physician Assistant Medical; Admitting Provider Student in an Organized Health Care Education/Training Program; Emergency Provider Internal Medicine; PCP Nurse Practitioner Family; Visit Provider Internal Medicine
PROC: 0DJD8ZZ Inspection of Lower Intestinal Tract, Via Natural or Artificial Opening Endoscopic (ICD-10-PCS; CPT 45378; principal; 2023-04-01 15:30)
DX: K57.31 Diverticulosis of large intestine without perforation or abscess with bleeding (principal); E78.5 Hyperlipidemia, unspecified; I10 Essential (primary) hypertension; K63.5 Polyp of colon; K62.1 Rectal polyp; F39 Unspecified mood [affective] disorder; E11.65 Type 2 diabetes mellitus with hyperglycemia; E78.2 Mixed hyperlipidemia; Z87.891 Personal history of nicotine dependence; Z79.82 Long term (current) use of aspirin; Z79.84 Long term (current) use of oral hypoglycemic drugs; Z79.899 Other long term (current) drug therapy
CPT/HCPCS: 36415; 74178; 80048; 81001; 82272; 82947; 83690; 83735; 85025; 85027; 85610; 86850; 86900; 86901; 88305; 99285; C9113; J2704; J3010; Q9967

== ENCOUNTER → 2023-03-30 21:17 | Outpatient (BNV) | payer MEDICARE, SELFPAY | PROVIDERS: Admitting Provider Student in an Organized Health Care Education/Training Program; Emergency Provider Internal Medicine; PCP Nurse Practitioner Family; Visit Provider Student in an Organized Health Care Education/Training Program | DX: K92.2 Gastrointestinal hemorrhage, unspecified (principal); E11.65 Type 2 diabetes mellitus with hyperglycemia | CPT/HCPCS: 99222; 99232; 99239 ==

== ENCOUNTER 2023-04-29 14:16 | Outpatient (AMB) | payer MEDICARE, SELFPAY ==
--- NOTE | 2023-04-29 14:21 | A.OFFPC_ITS ---
Vital Signs 04/29/23 14:22 04/29/23 14:50 Height 6 ft Weight 262 lb 6 oz BMI 35.6 BP 140/78 H Blood Pressure Location Lt brachial Position Sitting Pulse 102 H 88 Pulse Source Pulse Oximeter Pulse Oximetry (%) 97 Oxygen Delivery Method Room Air Intake Visit Reasons: HDF - GI bleed Intake Note: Pt is here for HDF from [facility] [place] Allergies No Known Allergies Allergy (Verified 04/29/23 14:45) Medication List - Last Reconciled 04/29/23 by LENA Arceo- amlodipine 5 mg PO DAILY aspirin (Adult Aspirin Regimen) 81 mg PO DAILY betamethasone dipropionate 0.05% 1 appl topical DAILY PRN betamethasone, augmented 0.05 % 1 appl topical BID [id number] 160-9-4.8 mcg/actuation (Breztri Aerosphere) 2 inhalations inhalation BID cholecalciferol (vitamin D3) 50 mcg PO DAILY duloxetine 20 mg PO DAILY guaifenesin ER (Mucinex) 1,200 mg PO Q12H PRN ipratropium-albuterol 20-100 mcg/actuation (Combivent Respimat) 1 puff inhalation Q6H PRN ivabradine (Corlanor) 5 mg PO DAILY 90 days meloxicam 7.5 mg PO DAILY PRN metformin 1,000 mg PO BID 90 days omeprazole 40 mg PO DAILY rosuvastatin 40 mg PO DAILY tacrolimus 0.1% topical vitamin B complex (B Complex-Vitamin B12 tablet) 1 tab PO DAILY Tobacco use date assessed: 04/29/23 Fall risk assessment: No Falls in past year Last assessed Fall Risk: 04/29/23 Dental Screening Dental Screen Date: 04/29/23 Did you have a dental visit in the last 12 months?: No Did you have a dental problem in the last 6 months where you did not have access to dental care?: No Was dental information given to patient?: No HPI HDF - GI bleed HPI Details Pt was seen in the ER on 03/30 c/o rectal bleeding. CT of abdomen/pelvis was negative for acute process, no evidence of contrast extravasation to suggest hemorrhage. CT noted colonic diverticulosis without acute diverticulitis. Labs showed stable hemoglobin of 16.8, hematocrit of 52.2. WBC count was slightly elevated at 11k. He was started on IV protonix. Aspirin and antihypertensives were held. Pt was admitted. He was seen by GI who recommended colonoscopy, which was done on 04/01. This showed polyps and diverticulosis. Pt's bleeding was most likely due to diverticulosis. It was recommended that aspirin be held for at least 2 weeks. H&H on 04/02 was 15.2/46.8. Pt reports that he had a small bout of rectal bleeding since being discharged. He reported this stopped over a short amt of time. no pain with defication. Pt has been off of his diltiazem for over one month due to this being unavailable at his pharmacy. Will send amlodipine. Will also reach out to pt's spindle plumber about starting something else for pt's heart rate. Pt plans to restart his aspirin next week. Denies chest pain, shortness of breath, headache, dizziness, and blurred vision. [facility] Medical History Diabetes Dyslipidemia Hyperlipidemia Inappropriate sinus tachycardia Surgical History Hx of hernia repair Hx of cardiac cath Family History Paternal Grandfather CAD (coronary artery disease) Father Pulmonary disease Maternal Grandmother Diabetes mellitus Social History Household Members: Children Housing: House Do you presently have visiting nurse or other home services: No Alcohol intake: current Alcohol intake frequency: holidays/special occasions only Patient Tobacco Use Status: Former Tobacco user Quit Date: 03/02/13 e-Cigarette/Vaping Use: Never Used Second Hand Smoke Exposure: No service: No Current occupational status: retired Cognitive needs: No Hearing needs: No Vision needs: No Questionnaire Thrive Questionnaire Date Thrive assessed: 03/31/23 RAMON-7 AMB Questionnaire RAMON-7 Date RAMON - 7 assessed: 11/28/21 Source: Developed by Drs. Raji Jones, Joanna Lopez, Nathaniel Edgar and colleagues, with an educational galen from [employer]. Review of Systems Const Reports as per HPI Physical exam (Primary Care) Vital Signs: Last Vital Signs Pulse 88 04/29/23 14:50 BP 140/78 H 04/29/23 14:22 Pulse Ox 97 04/29/23 14:22 Oxygen Delivery Method Room Air 04/29/23 14:22 BMI result Body Mass Index 35.6 Tobacco/Smoking Status: Tobacco use Status Tobacco use date assessed 04/29/23 04/29/23 14:29 Patient Tobacco Use Status Former Tobacco user 04/29/23 14:29 e-Cigarette/Vaping Use Never Used 04/29/23 14:29 Thrive Assessment: Date of Thrive Assessment Date Thrive assessed 03/31/23 04/29/23 14:29 Const General: cooperative Nutritional Appearance: obese Orientation/consciousness: patient oriented x3 Resp Effort & Inspection: normal respiratory effort Auscultation: clear to auscultation bilaterally Cardio Rate: regular rate Rhythm: regular rhythm Heart sounds: S1 normal heart sound present and S2 normal heart sound present Neuro General: patient oriented x3 Extrem Right lower extremity: edema (trace) Left lower extremity: edema (trace) Psych Appearance: grossly normal Mental Status: mental status grossly normal Speech and movement: Normal speech and movement present Affect: normal affect Attitude: cooperative Thought process: Normal thought process present Thought content: Normal thought content present Insight: Good insight present (Psych) Judgement: Good judgement present (Psych) Assessment and Plan Assessment & Plan (1) GI bleed: Code(s): K92.2 - Gastrointestinal hemorrhage, unspecified Plan: may start asa next week (2) Hypertension: Code(s): I10 - Essential (primary) hypertension Plan: start amlodipine, reaching out to cardiology team for further input (3) Tachycardia: Code(s): R00.0 - Tachycardia, unspecified Plan: reaching out to cardiology for further input Plan The patient agreed to the use of a medical records technician for this encounter. Scribed for ARTEMIO Sun by Luma Medina medical records technician, on 04/29/2023 at 14:35 EST. Orders: Orders Complete Blood Count Auto Diff Today K92.2 - Gastrointestinal hemorrhage, unspecified Comprehensive Met. Panel Today K92.2 - Gastrointestinal hemorrhage, unspecified Medications: New amlodipine 5 mg PO DAILY 90 tabs 0RF Discontinued diltiazem HCl ER Discontinued Reason: Patient no longer taking 240 mg PO DAILY 90 caps 2RF Coding Level of Care Code Est Pt Level 3 (34630) Diagnoses GI bleed K92.2 Hypertension I10 Tachycardia R00.0
[2023-04-29 14:22] VITALS: BP 140/78; PULSE 102; O2SAT 97; BMI 35.6
[2023-04-29 14:50] VITALS: PULSE 88
== END 2023-04-29 15:49 | disposition home or self-care (01) ==
PROVIDERS: PCP Nurse Practitioner Family; Visit Provider Nurse Practitioner Family
DX: K92.2 Gastrointestinal hemorrhage, unspecified (principal); I10 Essential (primary) hypertension; R00.0 Tachycardia, unspecified
CPT/HCPCS: 99213

== ENCOUNTER 2023-05-11 09:14 | Outpatient (AMB) | payer MEDICARE, SELFPAY ==
--- NOTE | 2023-05-11 09:34 | A.OFFVIS_ITS ---
Intake Intake Visit Reasons: Hematuria, unspecified Intake Note: NEW Patient presents today to established treatment for hematuria Meds- None Allergies to Antibiotic- No Known Allergies Blood Thinner- Aspirin Post Void Residual: 20ml Patient Symptoms: Patient stated he saw blood in the urine in the past, today he feels very well and have not noticed any more blood in the urine, he does not have any pain or burning when he urinates.He wakes up 4 times at night to urinate. Housing Inspector Required: No Accompanied by: Self / Same As Patient Allergies No Known Allergies Allergy (Verified 05/11/23 09:36) Medication List - Last Reconciled 05/11/23 by Gordy Hedrick MD aspirin (Adult Aspirin Regimen) 81 mg PO DAILY betamethasone dipropionate 0.05% 1 appl topical DAILY PRN betamethasone, augmented 0.05 % 1 appl topical BID [id number]-njirtzlj-oswtnoihww 160-9-4.8 mcg/actuation (Breztri Aerosphere) 2 inhalations inhalation BID cholecalciferol (vitamin D3) 50 mcg PO DAILY duloxetine 20 mg PO DAILY duloxetine 20 mg PO BID guaifenesin ER (Mucinex) 1,200 mg PO Q12H PRN ipratropium-albuterol 20-100 mcg/actuation (Combivent Respimat) 1 puff inhalation Q6H PRN ivabradine (Corlanor) 5 mg PO DAILY 90 days meloxicam 7.5 mg PO DAILY PRN metformin 1,000 mg PO BID 90 days omeprazole 40 mg PO DAILY rosuvastatin 40 mg PO DAILY tacrolimus 0.1% topical tamsulosin (Flomax) 0.4 mg PO BEDTIME verapamil ER 180 mg PO DAILY 90 days vitamin B complex (B Complex-Vitamin B12 tablet) 1 tab PO DAILY HPI HPI Comments History of Present Illness Details Cody is a 73-year-old male who has been referred due to hematuria. PMHx of [id number] diabetes mellitus, essential hypertension, mixed hyperlipidemia, mood disorder. In review of the chart the patient is recently an inpatient at [facility], he presented to the ED on 03/30/2023 complaining of painless blood in stools, he had workup done by GI and is discharged on 04/02/23. I reviewed CT imaging done on 03/30/2023 kidneys were within normal limits. The patient complains of nocturia x4, complains of intermittent stream. States he noticed episode of blood in the urine after urination this March x1 episode, denies dysuria. Denies history of kidney stones, history of nicotine use, cigarette use started at age 15 quit age 63 smoked up to a pack and a half daily. I have reviewed chart CT imaging as noted above kidneys negative for stones or solid masses, 03/17/2023 urine culture less than 10,000 colonies. I have discussed reasons for blood in the urine may include but are not limited to kidney stones, cancer in the urinary tract, kidney stone disease or inflammatory conditions of the urinary tract, BPH. I have discussed workup to include evaluation of the upper tracts and consideration for cystoscopy evaluation. UA-blood trace, leukocytes negative; bladder scan PVR 20 mL. Prostate exam: Smooth, enlarged no suspicious nodules. 05/11/2023--Plan: Schedule office cystos copy. Trial tamsulosin 0.4 mg daily in the evening. [facility] Medical History Diabetes Dyslipidemia Hyperlipidemia Inappropriate sinus tachycardia Surgical History Hx of hernia repair Hx of cardiac cath Family History Paternal Grandfather CAD (coronary artery disease) Father Pulmonary disease Maternal Grandmother Diabetes mellitus Social History Household Members: Children Housing: House Do you presently have visiting nurse or other home services: No Alcohol intake: current Alcohol intake frequency: holidays/special occasions only Patient Tobacco Use Status: Former Tobacco user Quit Date: 03/02/13 e-Cigarette/Vaping Use: Never Used Second Hand Smoke Exposure: No service: No Current occupational status: retired Cognitive needs: No Hearing needs: No Vision needs: No Review of Systems Const All systems reviewed & are unremarkable except as noted in HPI and below Reports no additional complaints Eyes Reports no additional complaints ENT Reports no additional complaints Card Reports no additional complaints Resp Reports no additional complaints GI Reports no additional complaints Musc Reports no additional complaints Skin/Breast Denies rash and Denies unusual bruising Neuro Reports no additional complaints Psych Reports no additional complaints Endo Reports no additional complaints Dillon/Lymph Reports no additional complaints Aller/Immun Reports no additional complaints Physical Exam Const General: healthy appearing, no acute distress and well developed Nutritional Appearance: overweight Orientation/consciousness: patient oriented x3 HEENT Head: Yes normocephalic and Yes atraumatic Eyes Conjunctivae: conjunctivae normal Neck Neck: Yes normal visual inspection Chest Chest palpation & inspection: normal inspection of the chest Resp Effort & Inspection: normal respiratory effort Cardio Rate: regular rate GI Inspection: Yes normal to inspection Palpation (GI): Soft to palpation Other: Prostate Exam: Smooth, enlarged Scrotum: scrotum normal Skin General skin exam: no rashes or lesions noted Neuro General: patient oriented x3 Extrem General: No pedal edema Psych Appearance: grossly normal Affect: normal affect Office Procedures Post Void Residual Post Residual Void Post Void Residual (PVR): 20 [id number] Void Residual by ultrasound Results AMB Urinalysis, Automated UA Leukoctes 0 Sharita/uL Last Edit by Lesly Wallace CMA on 05/11/23 09 :54 UA Nitrite Negative Last Edit by Lesly Wallace CMA on 05/11/23 09: 54 UA Urobilinogen 0.2 mg/dL Last Edit by Lesly Wallace CMA on 4 09:54 UA Protein 15 mg/dL Last Edit by Lesly Wallace CMA on 05/11/23 09:5 4 UA pH 5.5 Last Edit by Lesly Wallace CMA on 05/11/23 09:54 UA Blood 10 Musa/uL Last Edit by Lesly Wallace CMA on 05/11/23 09:54 UA Specific [place] 1.020 Last Edit by Lesly Wallace CMA on 09:54 UA Ketone Negative Last Edit by Lesly Wallace CMA on 05/11/23 09:5 4 UA Bilirubin 0 mg/dL Last Edit by Lesly Wallace CMA on 05/11/23 09: 54 UA Glucose 0 mg/dL Last Edit by Lesly Wallace CMA on 05/11/23 09:54 Results Reviewed Results Reviewed: Laboratory Last Values Urine pH (Auto) 5.5 05/11/23 09:37 Specific [place] (Auto) 1.020 05/11/23 09:37 Urine Protein (Auto) 15 mg/dL 05/11/23 09:37 Glucose (UA)(Auto) 0 mg/dL 05/11/23 09:37 Urine Ketones (Auto) Negative 05/11/23 09:37 Urine Blood (Auto) 10 Musa/uL 05/11/23 09:37 Urine Nitrite (Auto) Negative 05/11/23 09:37 Urine Bilirubin (Auto) 0 mg/dL 05/11/23 09:37 Urine Urobilinogen (Auto) 0.2 mg/dL 05/11/23 09:37 Leukocyte Esterase (Auto) 0 Sharita/uL 05/11/23 09:37 Date of Service: 03/30/23 EXAMINATION: CTA ABDOMEN AND PELVIS WITH AND WITHOUT CONTRAST CLINICAL INFORMATION: Rectal bleeding COMPARISON: CT chest from 12/30/2022, CT abdomen from 02/28/2021 FINDINGS: LOWER LUNGS: Emphysematous changes. Previously identified lung nodules are less conspicuous on current examination. No pneumothorax. No large pleural effusion. LIVER, GALLBLADDER, AND BILIARY TREE: The liver is normal in size, shape, and attenuation. Redemonstration of multiple hypodense hepatic foci the largest measuring up to 1.2 cm in the left hepatic lobe, stable No biliary ductal dilatation is present. The gallbladder is unremarkable with no evidence of radiopaque gallstones, gallbladder wall thickening, or obvious pericholecystic inflammatory changes. PANCREAS: Mild atrophy of the pancreas. SPLEEN: Unremarkable. ADRENAL GLANDS: Unremarkable. KIDNEYS AND URETERS: The kidneys are normal in size, shape, and attenuation. No hydronephrosis, hydroureter, or calculi seen. No perinephric stranding. BLADDER: Unremarkable. GASTROINTESTINAL TRACT: Small hiatal hernia. Colonic diverticulosis without acute diverticulitis. The small and large bowel are unremarkable. The appendix is unremarkable. ABDOMINAL WALL: Status post right inguinal repair. Small fat filled left inguinal hernia. LYMPH NODES: No enlarged lymph nodes per size criteria. VASCULAR: Abdominal aorta is nonaneurysmal. Atherosclerotic calcifications of the abdominal aorta and its branches. No evidence of contrast extravasation to suggest hemorrhage. PELVIC VISCERA: Prostate measures 5.2 cm. OSSEOUS STRUCTURES: Multilevel degenerative changes of the thoracolumbar lumbosacral spine. Osteopenia. Sclerotic focus right femoral head/neck statistically representing a bone island. Additional bone island noted in the left iliac wing. Levocurvature of the lumbar spine. IMPRESSION: 1. No acute process of the abdomen or pelvis identified. 2. No evidence of contrast extravasation to suggest hemorrhage. 3. Redemonstration of multiple hypodense hepatic foci the largest measuring up to 1.2 cm in the left hepatic lobe, stable. 4. Small hiatal hernia. 5. Colonic diverticulosis without acute diverticulitis. 6. Status post right inguinal repair. 7. Prostate measures 5.2 cm. 8. Osteopenia. Assessment & Plan Assessment & Plan (1) BPH loc w urin obs/LUTS: Code(s): N40.1 - Benign prostatic hyperplasia with lower urinary tract symptoms (2) Nocturia: Code(s): R35.1 - Nocturia (3) Hematuria: Code(s): R31.9 - Hematuria, unspecified Plan For office cystoscopy Tamsulosin 0.4 mg in the evening Orders: Orders AMB Urinalysis Automated Today R33.9 - Retention of urine, unspecified AMB Post Void Residual by ultrasound Today R33.9 - Retention of urine, unspecified Medications: New tamsulosin (Flomax) 0.4 mg PO BEDTIME 90 caps 1RF Patient Instructions: The patient had an opportunity to ask questions regarding treatment plan. All questions were answered. Imaging, Laboratory studies and physical exam results were discussed and reviewed in detail. No major barriers to understanding were identified. The patient expressed understanding and agreement with the above treatment plan. The patient is aware they should contact our office by phone for worsening of their current condition or the appearance of new symptoms. Compliance is encouraged with any medications and followup testing that is ordered. It is a privilege to be allowed the opportunity to participate in the urologic care of your patient. If you have any questions or concerns regarding treatment for the above conditions please do not hesitate to contact me. The office telephone contact is [phone]. This note is constructed in part using voice recognition software. While every effort has been made to ensure accuracy supervisor laundry errors may have been included. Yours sincerely, Gordy Hedrick MD Coding Level of Care Code New Pt Level 4 (94777) Diagnoses BPH loc w urin obs/LUTS N40.1 Nocturia R35.1 Hematuria R31.9 CPT Codes Post Residual Void - PVR CPT Code: 31588-Hgbf Void Residual by ultrasound ([id number])
== END 2023-05-11 10:38 | disposition home or self-care (01) ==
PROVIDERS: PCP Nurse Practitioner Family; Visit Provider Urology
DX: N40.1 Benign prostatic hyperplasia with lower urinary tract symptoms (principal); R35.1 Nocturia; R31.9 Hematuria, unspecified; R33.9 Retention of urine, unspecified
CPT/HCPCS: 99204

== ENCOUNTER → 2023-05-11 09:14 | Outpatient (BNVA) | payer MEDICARE, SELFPAY | PROVIDERS: PCP Nurse Practitioner Family; Visit Provider Urology | DX: N40.1 Benign prostatic hyperplasia with lower urinary tract symptoms (principal); R35.1 Nocturia; R31.9 Hematuria, unspecified | CPT/HCPCS: 51798; 81003; 99202 ==

== ENCOUNTER 2023-06-25 10:16 | Outpatient (AMB) | payer MEDICARE, SELFPAY ==
--- NOTE | 2023-06-25 10:25 | A.OFFVIS_ITS ---
Intake Visit Reasons: cysto Intake Note: Patient presents today for a CYSTOSCOPY Procedure: Meds: None Allergies to Antibiotic: No Known Allergies Blood Thinner: Aspirin Urinalysis test clear for Cysto? yes Disposable Uro-G HD Cystoscope Cannula: Lot: [id number] Exp: 01/22/2026 Press Tender Incendiary Grenade Required: No Accompanied by: Self / Same As Patient Allergies No Known Allergies Allergy (Verified 06/25/23 10:26) Medication List - Last Reconciled 06/25/23 by Gordy Hedrick MD aspirin (Adult Aspirin Regimen) 81 mg PO DAILY betamethasone dipropionate 0.05% 1 appl topical DAILY PRN betamethasone, augmented 0.05 % 1 appl topical BID xqtoyzjbhz-ovfaszjm-ilyibemtfa 160-9-4.8 mcg/actuation (Breztri Aerosphere) 2 inhalations inhalation BID cholecalciferol (vitamin D3) 50 mcg PO DAILY duloxetine 20 mg PO DAILY finasteride (Proscar) 5 mg PO DAILY 90 days guaifenesin ER (Mucinex) 1,200 mg PO Q12H PRN ipratropium-albuterol 20-100 mcg/actuation (Combivent Respimat) 1 puff inhalation Q6H PRN ivabradine (Corlanor) 5 mg PO DAILY 90 days meloxicam 7.5 mg PO DAILY PRN metformin 1,000 mg PO BID 90 days omeprazole 40 mg PO DAILY rosuvastatin 40 mg PO DAILY tacrolimus 0.1% topical tamsulosin (Flomax) 0.4 mg PO BID verapamil ER 180 mg PO DAILY 90 days vitamin B complex (B Complex-Vitamin B12 tablet) 1 tab PO DAILY HPI Comments Details: 06/25/2023--Cody was seen as a new patient evaluation 05/11/2023, referred due to hematuria. He was started on tamsulosin 0.4 mg daily for obstructive voiding symptoms. He saw blood in his urine in March, history of nicotine use. He states he has not seen any further episodes of blood in the urine. He presents for office cystoscopy today. Cystoscopy findings cough prostatic urethra bilobar enlargement with prominent median lobe, bulbous urethra WNL, no suspicious bladder lesions visualized. I have discussed treatment options for his concerns regarding urination. Maximizing medication versus surgical management including but not limited to GreenLight laser or TURP. The patient wants to avoid surgical procedures at this time. Plan discussed increase tamsulosin to b.i.d. and start Proscar 5 mg daily. Review of chart: 05/11/23--Cody is a 73-year-old male who has been referred due to hematuria. PMHx of fmq-nnzhybb-mrrsxifoc diabetes mellitus, essential hypertension, mixed hyperlipidemia, mood disorder. In review of the chart the patient is recently an inpatient at [facility], he presented to the ED on 03/30/2023 complaining of painless blood in stools, he had workup done by GI and is discharged on 04/02/23. I reviewed CT imaging done on 03/30/2023 kidneys were within normal limits. The patient complains of nocturia x4, complains of intermittent stream. States he noticed episode of blood in the urine after urination this March x1 episode, denies dysuria. Denies history of kidney stones, history of nicotine use, cigarette use started at age 15 quit age 63 smoked up to a pack and a half daily. I have reviewed chart CT imaging as noted above kidneys negative for stones or solid masses, 03/17/2023 urine culture less than 10,000 colonies. I have discussed reasons for blood in the urine may include but are not limited to kidney stones, cancer in the urinary tract, kidney stone disease or inflammatory conditions of the urinary tract, BPH. I have discussed workup to include evaluation of the upper tracts and consideration for cystoscopy evaluation. UA-blood trace, leukocytes negative; bladder scan PVR 20 mL. Prostate exam: Smooth, enlarged no suspicious nodules. Plan discussed schedule office cystoscopy. Trial tamsulosin 0.4 mg daily. 06/25/2023--Plan - increase tamsulosin to b.i.d. and start Proscar 5 mg daily. [facility] Medical History Diabetes Dyslipidemia Hyperlipidemia Inappropriate sinus tachycardia Surgical History Hx of hernia repair Hx of cardiac cath Family History Paternal Grandfather CAD (coronary artery disease) Father Pulmonary disease Maternal Grandmother Diabetes mellitus Social History Household Members: Children Housing: House Do you presently have visiting nurse or other home services: No Alcohol intake: current Alcohol intake frequency: holidays/special occasions only Patient Tobacco Use Status: Former Tobacco user Quit Date: 03/02/13 e-Cigarette/Vaping Use: Never Used Second Hand Smoke Exposure: No service: No Current occupational status: retired Cognitive needs: No Hearing needs: No Vision needs: No Review of Systems Const All systems reviewed & are unremarkable except as noted in HPI and below Reports no additional complaints Eyes Reports no additional complaints ENT Reports no additional complaints Card Reports no additional complaints Resp Reports no additional complaints GI Reports no additional complaints Reports as per HPI Musc Reports no additional complaints Skin/Breast Reports system reviewed and no additional complaints, except as documented Neuro Reports no additional complaints Psych Reports no additional complaints Endo Reports no additional complaints Dillon/Lymph Reports no additional complaints Aller/Immun Reports no additional complaints Office Procedures Cystoscopy Consent Discussed risk and benefit or proposed procedure with the patient. Information consent for procedure given to the patient. Discussed technical aspects, risks, benefits and alternatives in full. Addressed all of the patient's questions and concerns regarding the procedure. The patient demonstrated knowledge and understanding. They wish to proceed with this procedure. Preparation The patient was prepped in the usual manner. A still operator brandy was present and in the room. Genitalia was prepped with betadine solution in a sterile manner. Lidocaine Jelly 2% was placed into the urethra and 16Fr flexible Olympus cystoscope was inserted into the meatus after adequate lubrication. Procedure Time out per protocol performed. Bladder Inspection Bladder Inspection: The bladder was inspected in its entirety with utilization retroflexion displaying: Tumor(s): None visualized Trabeculation: Moderate with cellule changes Mucosal Erthema: N/A Orifices: normal shape and position Urethra: normal Cystoscopy findings: prostatic urethra bilobar enlargement with prominent median lobe, bulbous urethra WNL, no suspicious bladder lesions visualized [id number] DISPOSABLE SCOPE URO-G FLEXIBLE SCOPE Procedure code (CPT) selection complete Office Meds lidocaine HCl 2 % mucosal jelly in applicator Performing Provider: Gordy Hedrick MD [facility] Administered by: Noman Altamirano LPN on 06/25/23 10:47 Dose Route Admin Location Dispensed Lot Number Expiration Date ND Rail Signal Mechanic 10 mL intra-urethral 20 mL naproxen 500 mg tablet Performing Provider: Gordy Hedrick MD Performing Location: [facility] Administered by: Noman Altamirano LPN on 06/25/23 10:47 Dose Route Admin Location Dispensed Lot Number Expiration Date NDC Rail Signal Mechanic 500 mg PO 1 tab ciprofloxacin HCl 500 mg tablet Performing Provider: Gordy Hedrick MD Performing Location: [facility] Administered by: Noman Altamirano LPN on 06/25/23 10:47 Dose Route Admin Location Dispensed Lot Number Expiration Date NDC Rail Signal Mechanic 500 mg PO 1 tab Results AMB Urinalysis, Automated UA Leukoctes 15 Sharita/uL Last Edit by JACK Duarte on 06/25/23 10:46 UA Nitrite Negative Last Edit by JACK Duarte on 06/25/23 10:46 UA Urobilinogen 0.2 mg/dL Last Edit by Sergey Velazquez Sudha on 06/25/23 10:4 6 UA Protein 30 mg/dL Last Edit by JACK Duarte on 06/25/23 10:46 1+ Sergey Velazquez 06/25/23 10:46 UA pH 6.0 Last Edit by JACK Duarte on 06/25/23 10:46 UA Blood 10 Musa/uL Last Edit by JACK Duarte on 06/25/23 10:46 UA Specific [place] 1.025 Last Edit by JACK Duarte on 06/25/23 10: 46 UA Ketone Negative Last Edit by JACK Duarte on 06/25/23 10:46 UA Bilirubin 0 mg/dL Last Edit by JACK Duarte on 06/25/23 10:46 UA Glucose 0 mg/dL Last Edit by JACK Duarte on 06/25/23 10:46 Results Reviewed Results Reviewed: Laboratory Last Values Urine pH (Auto) 6.0 06/25/23 10:45 Specific [place] (Auto) 1.025 06/25/23 10:45 Urine Protein (Auto) 30 mg/dL 06/25/23 10:45 Glucose (UA)(Auto) 0 mg/dL 06/25/23 10:45 Urine Ketones (Auto) Negative 06/25/23 10:45 Urine Blood (Auto) 10 Musa/uL 06/25/23 10:45 Urine Nitrite (Auto) Negative 06/25/23 10:45 Urine Bilirubin (Auto) 0 mg/dL 06/25/23 10:45 Urine Urobilinogen (Auto) 0.2 mg/dL 06/25/23 10:45 Leukocyte Esterase (Auto) 15 Sharita/uL 06/25/23 10:45 Assessment & Plan Assessment & Plan (1) BPH loc w urin obs/LUTS: Code(s): N40.1 - Benign prostatic hyperplasia with lower urinary tract symptoms Category: Medical (2) Nocturia: Code(s): R35.1 - Nocturia Category: Medical (3) Hematuria: Code(s): R31.9 - Hematuria, unspecified Category: Medical Plan Increase tamsulosin to b.i.d., Proscar 5 mg daily. Follow-up in 6 months Orders: Orders AMB Cystoscopy Today N40.1 - Benign prostatic hyperplasia with lower urinary tract symptoms, R31.9 - Hematuria, unspecified, R35.1 - Nocturia AMB Urinalysis Automated Today Z13.9 - Encounter for screening, unspecified Medications: New finasteride (Proscar) 5 mg PO DAILY 90 days 90 tabs 3RF Changed From tamsulosin (Flomax) 0.4 mg PO BEDTIME 90 caps 1RF To tamsulosin (Flomax) 0.4 mg PO BID 180 caps 2RF Patient Instructions: The patient had an opportunity to ask questions regarding treatment plan. The patient expressed understanding and agreement with the above treatment plan. The patient is aware they should contact our office by phone for worsening of their current condition or the appearance of new symptoms. Compliance is encouraged with any medications and followup testing that is ordered. It is a privilege to be allowed the opportunity to participate in the urologic care of your patient. If you have any questions or concerns regarding treatment for the above conditions please do not hesitate to contact me. The office telephone contact is [phone]. This note is constructed in part using voice recognition software. While every effort has been made to ensure accuracy leaf blender errors may have been inc luded. Yours sincerely, Gordy Hedrick MD Coding Level of Care Code Est Pt Level 4 (60776) Diagnoses BPH loc w urin obs/LUTS N40.1 Nocturia R35.1 Hematuria R31.9 CPT Codes Cystoscopy - CPT: [id number] ([id number])
== END 2023-06-25 11:22 | disposition home or self-care (01) ==
PROVIDERS: PCP Nurse Practitioner Family; Visit Provider Urology
DX: N40.1 Benign prostatic hyperplasia with lower urinary tract symptoms (principal); R35.1 Nocturia; R31.9 Hematuria, unspecified; Z13.9 Encounter for screening, unspecified
CPT/HCPCS: 52000; 99214

== ENCOUNTER → 2023-06-25 10:16 | Outpatient (BNVA) | payer MEDICARE, SELFPAY | PROVIDERS: PCP Nurse Practitioner Family; Visit Provider Urology | DX: R31.9 Hematuria, unspecified (principal); N40.1 Benign prostatic hyperplasia with lower urinary tract symptoms; N13.8 Other obstructive and reflux uropathy; R35.1 Nocturia | CPT/HCPCS: 52000; 81003; 99212 ==

== ENCOUNTER 2023-07-08 08:28 | Outpatient (AMB) | payer MEDICARE, SELFPAY ==
--- NOTE | 2023-07-08 08:32 | MHC.PC.OV ---
Vital Signs 07/08/23 08:36 Height 6 ft Weight 257 lb BMI 34.9 BP 130/78 Blood Pressure Location Rt brachial Position Sitting Pulse 93 Pulse Source Pulse Oximeter Pulse Oximetry (%) 96 Oxygen Delivery Method Room Air Intake Visit Reasons: 3 Month follow up Intake Note: Patient here for diabetes f/u. Allergies No Known Allergies Allergy (Verified 07/08/23 09:56) Medication List - Last Reconciled 07/08/23 by Geovani Samayoa, SEWING MACHINE OPERATOR FLOORPERSON- amoxicillin-pot clavulanate 875-125 mg 1 tab PO BID 10 days aspirin (Adult Aspirin Regimen) 81 mg PO DAILY betamethasone dipropionate 0.05% 1 appl topical DAILY PRN betamethasone, augmented 0.05 % 1 appl topical BID anmovukmrj-mwfiadau-ojystuiqkj 160-9-4.8 mcg/actuation (Breztri Aerosphere) 2 inhalations inhalation BID cholecalciferol (vitamin D3) 50 mcg PO DAILY diltiazem HCl ER 240 mg PO DAILY duloxetine 20 mg PO DAILY finasteride (Proscar) 5 mg PO DAILY 90 days furosemide (Lasix) 40 mg PO DAILY guaifenesin ER (Mucinex) 1,200 mg PO Q12H PRN ipratropium-albuterol 20-100 mcg/actuation (Combivent Respimat) 1 puff inhalation Q6H PRN ivabradine (Corlanor) 5 mg PO DAILY 90 days meloxicam 7.5 mg PO DAILY PRN metformin 1,000 mg PO BID 90 days omeprazole 40 mg PO DAILY rosuvastatin 40 mg PO DAILY tacrolimus 0.1% topical tamsulosin (Flomax) 0.4 mg PO BID verapamil ER 180 mg PO DAILY 90 days vitamin B complex (B Complex-Vitamin B12 tablet) 1 tab PO DAILY Tobacco use date assessed: 04/29/23 Dental Screening Dental Screen Date: 04/29/23 HPI 3 Month follow up HPI Details Pt is a diabetic, on a statin. A1C in office today is 7.0. Microalbumin is up to date. Denies polyuria, polydipsia, does report neuropathy. Pt denies any signs and symptoms of hypoglycemia and does know how to correct it. Will start jardiance 10mg. Pt reports erythema, swelling, and tenderness to his right 1st toe. Paronychia, will send augmentin. [facility] Medical History Diabetes Dyslipidemia Hyperlipidemia Inappropriate sinus tachycardia Surgical History Hx of hernia repair Hx of cardiac cath Family History Paternal Grandfather CAD (coronary artery disease) Father Pulmonary disease Maternal Grandmother Diabetes mellitus Social History Household Members: Children Housing: House Do you presently have visiting nurse or other home services: No Alcohol intake: current Alcohol intake frequency: holidays/special occasions only Patient Tobacco Use Status: Former Tobacco user Quit Date: 03/02/13 e-Cigarette/Vaping Use: Never Used Second Hand Smoke Exposure: No service: No Current occupational status: retired Cognitive needs: No Hearing needs: No Vision needs: No Questionnaire Thrive Questionnaire Date Thrive assessed: 03/31/23 RAMON-7 AMB Questionnaire RAMON-7 Date RAMON - 7 assessed: 11/28/21 Source: Developed by Drs. Raji Jones, Joanna Lopez, Nathaniel Edgar and colleagues, with an educational galen from [employer]. Review of Systems Const Reports as per HPI Physical exam (Primary Care) Vital Signs: Last Vital Signs Pulse 93 07/08/23 08:36 BP 130/78 07/08/23 08:36 Pulse Ox 96 07/08/23 08:36 Oxygen Delivery Method Room Air 07/08/23 08:36 BMI result Body Mass Index 34.9 Tobacco/Smoking Status: Tobacco use Status Tobacco use date assessed 04/29/23 07/08/23 08:33 Patient Tobacco Use Status Former Tobacco user 07/08/23 08:33 e-Cigarette/Vaping Use Never Used 07/08/23 08:33 Thrive Assessment: Date of Thrive Assessment Date Thrive assessed 03/31/23 07/08/23 08:33 Const General: cooperative Nutritional Appearance: obese Orientation/consciousness: patient oriented x3 Resp Effort & Inspection: normal respiratory effort Auscultation: diminished lung sounds Cardio Other: difficult to auscultate Rate: regular rate Rhythm: regular rhythm and abnormal rhythm Heart sounds: S1 normal heart sound present, S2 normal heart sound present and Murmur heart sound present systolic Neuro General: patient oriented x3 Extrem Other: lateral side of cuticle of right 1st toe w faint erythema, slight swelling, slight tenderness with palpation, toenail partially detached, lack of sensation with use of monofilament to toes 1 and 2, onychomycosis noted bilat (worse at 1st toenail), bilat hammertoes noted, left foot + sensation with use of monofilament Psych Appearance: grossly normal Mental Status: mental status grossly normal Speech and movement: Normal speech and movement present Affect: normal affect Attitude: cooperative Thought process: Normal thought process present Thought content: Normal thought content present Insight: Good insight present (Psych) Judgement: Good judgement present (Psych) Results AMB Hemoglobin A1c AMB Hemoglobin A1c 7.0 % Last Edit by KINJAL Cabrera on 07/08/23 09:00 Assessment and Plan Assessment & Plan (1) Diabetes: Code(s): E11.9 - Type 2 diabetes mellitus without complications Plan: Labs ordered, starting jardiance (2) Screening PSA (prostate specific antigen): Code(s): Z12.5 - Encounter for screening for malignant neoplasm of prostate Plan: PSA ordered (3) Paronychia of toe: Code(s): L03.039 - Cellulitis of unspecified toe Plan: starting antibiotic. Pt knows to seek medical care with worsening symptoms Plan The patient agreed to the use of a medical director for this encounter. Scribed for CHASIDY Sun by Luma Medina medical director, on 07/08/2023 at 08:45 EST. Orders: Orders Comprehensive Wallace. Panel Fast Today E11.9 - Type 2 diabetes mellitus without complications TSH reflex Free T4 Today E11.9 - Type 2 diabetes mellitus without complications Lipid Panel Today E11.9 - Type 2 diabetes mellitus without complications Complete Blood Count Auto Diff Today E11.9 - Type 2 diabetes mellitus without complications UA CC w/rflx Micro + Cult Today E11.9 - Type 2 diabetes mellitus without complications Prostate Specific Antigen Scr Today Z12.5 - Encounter for screening for malignant neoplasm of prostate AMB Hemoglobin A1c Today E11.9 - Type 2 diabetes mellitus without complications Medications: New amoxicillin-pot clavulanate 875-125 mg 1 tab PO BID 10 days 20 tabs 0RF empagliflozin (Jardiance) 10 mg PO DAILY 90 tabs 0RF amoxicillin-pot clavulanate 875-125 mg 1 tab PO BID 10 days 20 tabs 0RF empagliflozin (Jardiance) 10 mg PO DAILY 90 tabs 0RF Coding Level of Care Code Est Pt Level 3 (66680) Diagnoses Diabetes E11.9 Screening PSA (prostate specific antigen) Z12.5 Paronychia of toe L03.039
[2023-07-08 08:36] VITALS: BP 130/78; PULSE 93; O2SAT 96; BMI 34.9
== END 2023-07-08 09:10 | disposition home or self-care (01) ==
PROVIDERS: PCP Nurse Practitioner Family; Visit Provider Nurse Practitioner Family
DX: E11.9 Type 2 diabetes mellitus without complications (principal); Z12.5 Encounter for screening for malignant neoplasm of prostate; L03.039 Cellulitis of unspecified toe
CPT/HCPCS: 83036; 99213

== ENCOUNTER 2023-07-09 08:39 | Outpatient (REF) | payer MEDICARE, SELFPAY ==
[2023-07-09 10:36] LABS: MANUAL DIFF FLAG NO
[2023-07-09 10:48] LABS: Appearance Urine Clear; Color Urine Yellow; Glucose Urine UA Negative (Negative); Leukocyte Esterase Urine Negative (Negative); Nitrite Urine Negative (Negative); PH 5.5 (5.0-9.0); Urine Blood Negative (Negative); Urine Ketones Negative (Negative); Urine Protein Negative (Neg-Trace)
[2023-07-09 10:51] LABS: Basophils Absolute Auto 0.1 X10*3/uL (0.0-0.2); Eosinophils Absolute Auto 0.2 X10*3/uL (0.0-0.4); Eosinophils Percent Auto 1.8 % (0-4); Hematocrit 51.4 % (42.0-52.0); Imm Gran Abs Auto 0.06 X10*3/uL (0.00-0.03); Imm Gran Pct Auto 0.7 % (0.0-0.4); Lymphocytes Absolute Auto 1.3 X10*3/uL (1.2-4.9); Lymphocytes Percent Auto 14.9 % (20-40); Mean Corpuscular HGB Conc 31.1 g/dl (31.0-36.0); Mean Corpuscular Hemoglobin 28.4 pg (27.0-33.0); Mean Corpuscular Volume 91.1 fL (80.0-98.0); Mean Platelet Volume 10.6 fL (9.4-12.4); Monocytes Absolute Auto 0.6 X10*3/uL (0.1-1.2); Monocytes Percent Auto 6.3 % (2-11); Neutrophils Absolute Auto 6.6 x10*3/uL (2.0-8.3); Neutrophils Percent Auto 75.3 % (45-73); Platelet Count 219 X10*3/uL (160-400); Red Blood Count 5.64 X10*6/uL (4.60-5.80); Red Cell Distribution Width 14.2 % (11.0-16.0); White Blood Count 8.8 X10*3/uL (4.8-10.8)
[2023-07-09 11:12] LABS: Alanine Aminotransferase 20 U/L (0-40); Alkaline Phosphatase 87 U/L (39-117); Anion Gap 14 (12-20); Aspartate Amino Transferase 13 U/L (5-37); Bilirubin Total 0.3 mg/dL (0.0-1.0); Blood Urea Nitrogen 23 mg/dL (9-16); Calcium 9.8 mg/dL (8.4-10.2); Carbon Dioxide 24 mmol/L (22-29); Chloride 109 mmol/L (96-108); Cholesterol 117 mg/dL (<200); Estimated Glomerular Filt Rate > 60; Glucose Fasting 160 mg/dL (60-99); HDL Cholesterol 31 mg/dL (>40); LDL Cholesterol Calculated 61 mg/dL (<100); Potassium 4.6 mmol/L (3.3-5.1); Sodium 142 mmol/L (135-145); Total Protein 7.1 g/dL (6.5-8.0); Triglycerides 127 mg/dL (<150)
[2023-07-09 11:18] LABS: Prostate Specific Antigen Scr 1.23 ng/mL (<0.05-4.0)
[2023-07-09 11:30] LABS: TSH reflex Free T4 0.61 uIU/mL (0.32-4.0)
== END 2023-07-09 08:40 | disposition home or self-care (01) ==
LOC: HO.HMGCLDS 08:39
PROVIDERS: PCP Nurse Practitioner Family; Visit Provider Nurse Practitioner Family
DX: E11.9 Type 2 diabetes mellitus without complications (principal); Z12.5 Encounter for screening for malignant neoplasm of prostate
CPT/HCPCS: 36415; 80053; 80061; 81003; 84153; 84443; 85025

== ENCOUNTER 2023-10-14 08:14 | Outpatient (AMB) | payer MEDICARE, SELFPAY ==
--- NOTE | 2023-10-14 08:23 | MHC.OFFVIS ---
Vital Signs 10/14/23 08:24 Height 6 ft Weight 251 lb 5.231 oz BMI 34.1 BP 144/72 H Blood Pressure Location Lt brachial Position Sitting Pulse 104 H Intake Visit Reasons: 1 yr f/up Intake Note: 1 year follow-up with ekg c/o leg pain and sob Circulation Assistant Required: No Allergies No Known Allergies Allergy (Verified 07/08/23 09:56) Medication List - Last Reconciled 10/14/23 by Broderick Wang MD amoxicillin-pot clavulanate 875-125 mg 1 tab PO BID 10 days aspirin (Adult Aspirin Regimen) 81 mg PO DAILY betamethasone dipropionate 0.05% 1 appl topical DAILY PRN betamethasone, augmented 0.05 % 1 appl topical BID fvjhsecacl-ufyjttga-gzrbrpbrup 160-9-4.8 mcg/actuation (Breztri Aerosphere) 2 inhalations inhalation BID cholecalciferol (vitamin D3) 50 mcg PO DAILY duloxetine 20 mg PO DAILY empagliflozin (Jardiance) 10 mg PO DAILY finasteride (Proscar) 5 mg PO DAILY 90 days furosemide (Lasix) 40 mg PO DAILY guaifenesin ER (Mucinex) 1,200 mg PO Q12H PRN ipratropium-albuterol 20-100 mcg/actuation (Combivent Respimat) 1 puff inhalation Q6H PRN ivabradine (Corlanor) 5 mg PO DAILY 90 days meloxicam 15 mg PO DAILY PRN metformin 1,000 mg PO BID 90 days omeprazole 40 mg PO DAILY rosuvastatin 40 mg PO DAILY tacrolimus 0.1% topical tamsulosin (Flomax) 0.4 mg PO BID verapamil ER 180 mg PO DAILY 90 days vitamin B complex (B Complex-Vitamin B12 tablet) 1 tab PO DAILY HPI Comments Details: Chad comes for follow-up. Continues to have elevated heart rate with exercise. He said with a 6 minute walk test he was only able to do 5 minutes and 40 seconds in his heart rate went up to 170 beats per minute. Commonly his heart rate goes up to 140 beats per minute. Said that point time he gets significant tiredness in his legs and can not move forward. He also has shortness of breath. He has pretty advanced COPD based on the PFTs. He is taking Corlanor only once a day, says the cost is significant. He denies any clear orthopnea, PND, leg edema. Denies any exertional chest pain. He has been taking his verapamil regularly. Does not measure blood pressure at home. He said he has prior history of PVD many years ago had seen vascular surgery at stents put in. No follow-up since then. [facility] Medical History Diabetes Dyslipidemia Hyperlipidemia Inappropriate sinus tachycardia Surgical History Hx of hernia repair Hx of cardiac cath Family History Paternal Grandfather CAD (coronary artery disease) Father Pulmonary disease Maternal Grandmother Diabetes mellitus Social History Household Members: Children Housing: House Do you presently have visiting nurse or other home services: No Alcohol intake: current Alcohol intake frequency: holidays/special occasions only Patient Tobacco Use Status: Former Tobacco user e-Cigarette/Vaping Use: Never Used Second Hand Smoke Exposure: No service: No Current occupational status: retired Cognitive needs: No Hearing needs: No Vision needs: No Review of Systems Const Denies chills, Denies fatigue, Denies fever(s), Denies frequent falls, Denies weakness, Denies weight gain and Denies weight loss ENT Denies dizziness Card Denies chest pain, Denies leg edema, Denies lightheadedness, Denies palpitations, Denies dyspnea, Denies dyspnea on exertion, Denies orthopnea and Denies other (loss of consciousness) Resp Denies cough, Denies dyspnea and Denies dyspnea on exertion GI Denies hematochezia and Denies change in stool character Musc Denies abnormal gait, Denies muscle weakness, Denies numbness, Denies radiating pain into limb and Denies tingling Neuro Denies abnormal gait, Denies dizziness, Denies frequent falls, Denies numbness, Denies tingling and Denies weakness Endo Denies fatigue and Denies palpitations Physical Exam Vital Signs: Last Vital Signs Pulse 104 H 10/14/23 08:24 BP 144/72 H 10/14/23 08:24 BMI result Body Mass Index 34.1 Repeat blood pressure is 130/78 Pulse of 112 beats per minute Const General: alert and awake Nutritional Appearance: obese Orientation/consciousness: patient oriented x3 HEENT Head: Yes normocephalic and Yes atraumatic Neck Neck: Yes trachea midline, Yes supple and Yes no JVD Chest Chest palpation & inspection: abnormal inspection of the chest barrel chest Resp Effort & Inspection: normal respiratory effort Auscultation: no rales, no rhonchi, no wheezes and diminished lung sounds Cardio Jugular venous distension: no JVD Rate: regular rate and tachycardic Rhythm: regular rhythm Heart sounds: S1 normal heart sound present, S2 normal heart sound present and Murmur heart sound present systolic early, decrescendo and crescendo Skin General skin exam: no rashes or lesions noted Neuro General: patient oriented x3 and no focal motor deficits Extrem General: Yes no clubbing, cyanosis or edema Office Procedures EKG Details: EKG shows sinus tachycardia with PACs with low-voltage QRS 17574-[id number], Complete Assessment & Plan Assessment & Plan (1) Tachycardia: Code(s): R00.0 - Tachycardia, unspecified Category: Medical Plan: Resting sinus tachycardia as well as exertional sinus tachycardia. Exertional sinus tachycardia most likely due to compensated mechanism to counter pulmonary limitations. Inappropriate sinus tachycardia can not be entirely ruled out. [place] medication would be Corlanor although there is issues with cost related to the therapy. He is going to look into that a little bit more. Meanwhile I will increase verapamil to 240 mg daily. Advised to maintain activity level. He is limited because of bilateral heaviness in legs, will evaluate for vascular insufficiency. Continue pulmonary treatment. Consider pulmonary rehab. (2) Aortic stenosis: Code(s): I35.0 - Nonrheumatic aortic (valve) stenosis Category: Medical Plan: Aortic stenosis which appears to be mi. Follow-up echocardiogram in 1 month's time. Continue aggressive vascular risk factor modification. Continue low-dose aspirin therapy. Currently on high-intensity statin therapy. Target goal LDL less than 70 mg/dL. Blood pressure is currently well optimized on current therapy. No other interventions required. Will follow up in the clinic in 1 year's time, sooner p.r.n.. Thank you for allowing me to partake in his care Orders: Orders CA echo transthorac w con Today I35.0 - Nonrheumatic aortic (valve) stenosis US arterial duplex LE BI Today I73.9 - Peripheral vascular disease, unspecified ECG 3 day holter monitor 4 Weeks R00.0 - Tachycardia, unspecified Medications: New verapamil ER 240 mg PO DAILY 30 tabs 5RF Discontinued verapamil ER Discontinued Reason: Doctor's Order 180 mg PO DAILY 90 days 90 caps 0RF Coding Level of Care Code Est Pt Level 4 (09933) Diagnoses Tachycardia R00.0 Aortic stenosis I35.0 CPT Codes EKG - CPT: 35545-Cyieynqkggjzitxbz, Complete ([id number])
[2023-10-14 08:24] VITALS: BP 144/72; PULSE 104; BMI 34.1
== END 2023-10-14 09:12 | disposition home or self-care (01) ==
PROVIDERS: PCP Nurse Practitioner Family; Visit Provider Internal Medicine Cardiovascular Disease
DX: R00.0 Tachycardia, unspecified (principal); I35.0 Nonrheumatic aortic (valve) stenosis
CPT/HCPCS: 93010; 99214

== ENCOUNTER → 2023-10-14 08:14 | Outpatient (BNVA) | payer MEDICARE, SELFPAY | PROVIDERS: PCP Nurse Practitioner Family; Visit Provider Internal Medicine Cardiovascular Disease | DX: I35.0 Nonrheumatic aortic (valve) stenosis (principal); I73.9 Peripheral vascular disease, unspecified; R00.0 Tachycardia, unspecified | CPT/HCPCS: 93005; 99212 ==

== ENCOUNTER 2023-10-21 12:27 | Outpatient (AMB) | payer MEDICARE, SELFPAY ==
--- NOTE | 2023-10-21 12:33 | A.OFFPC_ITS ---
Vital Signs 10/21/23 12:34 Height 6 ft Weight 253 lb BMI 34.3 BP 138/80 Blood Pressure Location Rt brachial Position Sitting Pulse 100 Pulse Source Pulse Oximeter Pulse Oximetry (%) 97 Oxygen Delivery Method Room Air Intake Visit Reasons: 3 month f/u Allergies No Known Allergies Allergy (Verified 10/21/23 12:40) Medication List - Last Reconciled 10/21/23 by Geovani Samayoa, LAYOUT FORMER- amoxicillin-pot clavulanate 875-125 mg 1 tab PO BID 10 days aspirin (Adult Aspirin Regimen) 81 mg PO DAILY betamethasone dipropionate 0.05% 1 appl topical DAILY PRN betamethasone, augmented 0.05 % 1 appl topical BID teizytjthg-pjbonvow-ykdpklxjhp 160-9-4.8 mcg/actuation (Breztri Aerosphere) 2 inhalations inhalation BID cholecalciferol (vitamin D3) 50 mcg PO DAILY duloxetine 20 mg PO DAILY empagliflozin (Jardiance) 10 mg PO DAILY finasteride (Proscar) 5 mg PO DAILY 90 days furosemide (Lasix) 40 mg PO DAILY guaifenesin ER (Mucinex) 1,200 mg PO Q12H PRN ipratropium-albuterol 20-100 mcg/actuation (Combivent Respimat) 1 puff inhalation Q6H PRN ivabradine (Corlanor) 5 mg PO DAILY 90 days meloxicam 15 mg PO DAILY PRN metformin 1,000 mg PO BID 90 days omeprazole 40 mg PO DAILY rosuvastatin 40 mg PO DAILY tacrolimus 0.1% topical tamsulosin (Flomax) 0.4 mg PO BID verapamil ER 240 mg PO DAILY vitamin B complex (B Complex-Vitamin B12 tablet) 1 tab PO DAILY Tobacco use date assessed: 04/29/23 Fall risk assessment: No Falls in past year Last assessed Fall Risk: 10/21/23 Dental Screening Dental Screen Date: 04/29/23 HPI 3 month f/u HPI Details Pt is a diabetic, on a statin. A1C in office today is 6.3. Due for microalbumin next month, will order. Denies polyuria, polydipsia, and neuropathy. Pt denies any signs and symptoms of hypoglycemia and does know how to correct it. Pt is seeing podiatry at the beginning of October. Pt is a former smoker. He smoked up to 2 packs a day from age 12 until approximately 2 years ago. Will refer for low-dose CT. Last scan was last fall [facility] Medical History Diabetes Dyslipidemia Hyperlipidemia Inappropriate sinus tachycardia Surgical History Hx of hernia repair Hx of cardiac cath Family History Paternal Grandfather CAD (coronary artery disease) Father Pulmonary disease Maternal Grandmother Diabetes mellitus Social History Household Members: Children Housing: House Do you presently have visiting nurse or other home services: No Alcohol intake: current Alcohol intake frequency: holidays/special occasions only Patient Tobacco Use Status: Former Tobacco user e-Cigarette/Vaping Use: Never Used Second Hand Smoke Exposure: No service: No Current occupational status: retired Cognitive needs: No Hearing needs: No Vision needs: No Questionnaire PHQ-9 Over the last 2 weeks, how often have you been bothered by any of the following problems? 1. Little interest or pleasure in doing things: not at all 2. Feeling down, depressed, or hopeless: not at all 3. Trouble falling or staying asleep, or sleeping too much: several days 4. Feeling tired or having little energy: not at all 5. Poor appetite or overeating: not at all 6. Feeling bad about yourself - or that you are a failure or have let yourself or your family down: not at all 7. Trouble concentrating on things, such as reading the newspaper or watching television: not at all 8. Moving or speaking so slowly that other people could have noticed. Or the op posite - being so fidgety or restless that you have been moving around a lot more than usual: not at all 9. Thoughts that you would be better off or of hurting yourself in some way: not at all Total score: 1 Depression Screening Interpretation: Negative Depression Screening Done: Yes 99011 - PHQ-9 Billing: Yes Source: Developed by Drs. Raji L. KarenJoanna guerra Kurt Kroenke and colleagues, with an educational galen from [employer]. Thrive Questionnaire Date Thrive assessed: 10/21/23 I am a: Patient What is your living situation today?: I have a steady place to live Within the past 12 months, did the food you bought not last and you didn't have the money to get more?: Never true Within the past 12 months, did you worry whether your food would run out before you got money to buy more?: Never true Do you have trouble paying for medicines?: I choose not to answer this question Do you have trouble getting transportation to medical appointments?: No Do you have trouble paying your heating and electricity bill?: No Do you have trouble taking care of your child, family member or friend?: No Do you have trouble with day-to-day activities such as bathing, preparing meals, shopping, managing finances, etc.?: No Are you currently unemployed and looking for a job?: No Are you interested in more education?: No Please select the resources that you would like help with: Paying for medicine Currently or been in a relationship where the following occur: No concerns reported THRIVE Score: 0 AUDIT C Alcohol Use Questionnaire (AUDIT-C) 3. How often do you have six or more drinks on one occasion?: Never Total Score: 0 RAMON-7 AMB Questionnaire RAMON-7 Date RAMON - 7 assessed: 11/28/21 Feeling nervous, anxious, or on edge: 0 = Not at all Not being able to stop or control worryin = Not at all Worrying too much about different things: 0 = Not at all Trouble relaxin = Not at all Being so restless that it is hard to sit still: 0 = Not at all Becoming easily annoyed or irritable: 0 = Not at all Feeling afraid as if something awful might happen: 0 = Not at all Total RAMON-7 score (0-4 normal; 5-9 mild; 10-14 moderate; 15-21 severe): 0 Source: Developed by Joanna Stewart Kurt Kroenke and colleagues, with an educational galen from [employer]. RAMON-7 Assessment Billing RAMON-7 Assessment Tool: RAMON-7 Assessment 73011 Review of Systems Const Reports as per HPI Physical exam (Primary Care) Vital Signs: Last Vital Signs Pulse 100 10/21/23 12:34 BP 138/80 10/21/23 12:34 Pulse Ox 97 10/21/23 12:34 Oxygen Delivery Method Room Air 10/21/23 12:34 BMI result Body Mass Index 34.3 Tobacco/Smoking Status: Tobacco use Status Tobacco use date assessed 04/29/23 10/21/23 12:38 Patient Tobacco Use Status Former Tobacco user 10/21/23 12:38 e-Cigarette/Vaping Use Never Used 10/21/23 12:38 PHQ-9: PHQ-9 Score PHQ-9: Total score 1 10/21/23 16:31 Depression Screening Interpretation: Negative Thrive Assessment: Date of Thrive Assessment Date Thrive assessed 10/21/23 10/21/23 12:38 Currently or been in a relationship where the following occur: No concerns reported Const General: cooperative Nutritional Appearance: obese Orientation/consciousness: patient oriented x3 Resp Other: lungs diminished, coarse Effort & Inspection: normal respiratory effort Cardio Rate: regular rate Rhythm: regular rhythm Heart sounds: S1 normal heart sound present, S2 normal heart sound present and Murmur heart sound present systolic Neuro General: patient oriented x3 Extrem Other: bilat feet: + sensation with use of monofilament, right big toenail lifted, no signs of current infection, onychomycosis noted bilat Psych Appearance: grossly normal Mental Status: mental status grossly normal Speech and movement: Normal speech and movement present Affect: normal affect Attitude: cooperative Thought process: Normal thought process present Thought content: Normal thought content present Insight: Good insight present (Psych) Judgement: Good judgement present (Psych) Results AMB Hemoglobin A1c AMB Hemoglobin A1c 6.3 % Last Edit by Dean Granados CMA on 10/21/23 13: 12 Results Reviewed Results Reviewed: Laboratory Last Values Hgb A1c (Clinic) 6.3 % (4.0-6.0) H 10/21/23 13:11 Assessment and Plan Assessment & Plan (1) Diabetes: Code(s): E11.9 - Type 2 diabetes mellitus without complications Plan: Labs ordered (2) Smoker: Code(s): F17.200 - Nicotine dependence, unspecified, uncomplicated Plan: Referred for low-dose CT Plan The patient agreed to the use of a medical safety director for this encounter. Scribed for LENA Sun-MEENAKSHI by Luma Medina, medical safety director, on 10/21/2023 at 13:15 EST. Orders: Orders AMB Hemoglobin A1c Today Z13.9 - Encounter for screening, unspecified TSH reflex Free T4 Today E11.9 - Type 2 diabetes mellitus without complications UA CC w/rflx Micro + Cult Today E11.9 - Type 2 diabetes mellitus without complications Lipid Panel Today E11.9 - Type 2 diabetes mellitus without complications Complete Blood Count Auto Diff Today E11.9 - Type 2 diabetes mellitus without complications Comprehensive [place]. Panel Fast Today E11.9 - Type 2 diabetes mellitus without complications Referrals Lung Cancer Screening Referral F17.200 - Nicotine dependence, unspecified, uncomplicated Medications: Refilled amoxicillin-pot clavulanate 875-125 mg 1 tab PO BID 20 tabs 0RF 10 days Coding Level of Care Code Est Pt Level 3 (79750) Diagnoses Diabetes E11.9 Smoker F17.200 Additional Codes RAMON-7 Assessment Billing - RAMON-7 Assessment Tool: RAMON-7 Assessment 64163 ([id number])
[2023-10-21 12:34] VITALS: BP 138/80; PULSE 100; O2SAT 97; BMI 34.3
== END 2023-10-21 13:24 | disposition home or self-care (01) ==
PROVIDERS: PCP Nurse Practitioner Family; Visit Provider Nurse Practitioner Family
DX: E11.9 Type 2 diabetes mellitus without complications (principal); Z87.891 Personal history of nicotine dependence
CPT/HCPCS: 83036; 99213

== ENCOUNTER → 2023-11-18 07:51 | Outpatient (REF) | payer MEDICARE, SELFPAY ==
--- NOTE | ~2023-11-18 | US_ITS ---
EXAMINATION: Noninvasive assessment of the bilateral lower extremities with ARTERIAL DUPLEX CLINICAL INFORMATION: Peripheral vascular disease TECHNIQUE: Duplex Doppler techniques with waveform analysis and measurement of velocities in the bilateral common femoral, profunda femoris, superficial femoral, popliteal and tibial arteries were performed. COMPARISON: 03/14/2020 FINDINGS: DIRECT DUPLEX DOPPLER FINDINGS: RIGHT LEG: Common femoral artery: 259 cm/s, phasicity: Biphasic. Mild calcified plaque Profunda femoris artery: 238 cm/s, phasicity: Biphasic Superficial femoral artery (proximal): 187 cm/s, phasicity: Biphasic. Moderate calcified plaque Superficial femoral artery (mid): 122 cm/s, phasicity: Biphasic. Diffuse calcified plaque Superficial femoral artery (distal): 129 cm/s, phasicity: Biphasic. Diffuse calcified plaque Popliteal artery: 130 cm/s, phasicity: Biphasic Posterior tibial artery: 65.7 cm/s, phasicity: Biphasic Peroneal artery: Not visualized Anterior tibial artery: Not visualized Dorsalis pedis artery: 68.7 cm/s, phasicity:Biphasic LEFT LEG: Common femoral artery: 149 cm/s, phasicity: Biphasic Profunda femoris artery: 173 cm/s, phasicity: Triphasic Superficial femoral artery (proximal): 176 cm/s, phasicity: Biphasic Superficial femoral artery (mid): 121 cm/s, phasicity: Biphasic. Diffuse calcified plaque Superficial femoral artery (distal): 101 cm/s, phasicity: Biphasic. Diffuse calcified plaque Popliteal artery: 126 cm/s, phasicity: Biphasic Posterior tibial artery: 70 cm/s, phasicity: Biphasic Peroneal artery: Not visualized Anterior tibial artery: Not visualized Dorsalis pedis artery: 68.7 cm/s, phasicity: Biphasic US/US arterial duplex LE BI IMPRESSION: RIGHT LEG: Diffuse calcified plaque throughout the right lower extremity with elevated velocities in the common femoral artery and profunda femoral artery consistent with mild stenosis. No significant stenosis in the superficial femoral artery. The peroneal and anterior tibial arteries are not visualized. LEFT LEG: Diffuse calcified plaque throughout the left lower extremity with normal velocities and waveforms. No significant stenosis in the superficial femoral artery. The peroneal and anterior tibial arteries are not visualized. Electronically signed by: Keven Cooper MD 11/24/2023 01:35 PM EDT
--- NOTE | 2023-11-18 07:56 | HM_ITS ---
* Total monitoring time 3 days. * Underlying rhythm is sinus with an average rate of 83/Min. * Rare supraventricular ectopy. * Rare ventricular ectopy. 2 short runs; longest 5 beats. * No significant pauses or high-grade AV blocks. * Patient markers used in association with sinus rhythm and supraventricular ectopy. * Shortness of breath, rapid heartbeat in patient diary associated with sinus rhythm and supraventricular ectopy. MTDD
--- NOTE | 2023-11-18 07:56 | CA_ITS ---
Transthoracic Echocardiogram Patient (Last, First, Middle): Cody Rebollar W Gender: Male Date of : 1950 Age: 73 Procedure Date: 11/18/2023 Procedure Type: Transthoracic Echocardiogram Location: OP Height: 182.88 cm Weight: 112.04 kg BSA: 2.33 m2 Heart Rate: bpm BP: 138 / 80 mmHg Director Executive Communications: NICOL Referring MD: Broderick Wang MD Laborer Drying Department: Broderick Wang MD Symptoms: I35.0 - Nonrheumatic aortic (valve) stenosis Study Quality: Technically Difficult ECG Rhythm: Sinus Conclusions: - 1. Normal LV ejection fraction of 60 65% with impaired relaxation filling pattern 2. Moderate aortic stenosis 3. Normal RV systolic pressure Findings Procedure Information Contrast agent, definity, is being given per protocol without apparent complications. Left Ventricle Normal left ventricular size, thickness, and systolic function. The visually estimated ejection fraction is between 60-65%. Spectral Doppler is indicative of an impaired relaxation filling pattern. E/E prime ratio is between 8 and 15 consistent with indeterminate filling pressures. Right Ventricle The right ventricle was not well visualized. Normal right ventricular cavity size. There is normal right ventricular systolic function. Atria The left atrium is mildly dilated. Interatrial shunt cannot be excluded. The right atrium was not well visualized. Aortic Valve The aortic valve was not well visualized. There is mild calcification of the aortic valve. There is moderate aortic valve stenosis. The peak aortic gradient is 30 mmHg.The mean gradient is 20 mmHg. The aortic valve area is 1.20 cm2. There is no aortic valve regurgitation. Mitral Valve The mitral valve was not well visualized. There is trace mitral valve regurgitation. There is no mitral valve stenosis. Pulmonic Valve The pulmonic valve was not well visualized. Tricuspid Valve The tricuspid valve was not well visualized. There is trace tricuspid valve regurgitation. The right ventricular systolic pressure is normal. The right ventricular systolic pressure is 27 mmHg. Normal right atrial pressure. There is no evidence of pulmonary hypertension. Great Vessels The aorta was not well visualized. The pulmonary artery was not well visualized. Venous The inferior vena cava is normal in size and collapses greater than 50% with inspiration. Pericardium/Pleural The pericardium was not well visualized. Prior Study Comparison Changes noted compared to prior study dated: 11/21/2022. Aortic stenosis is moderate Measurements 2D Linear Measurements IVSd: 1.16 0.6-0.9/0.6-1.0 cm LVIDd: 5.35 3.9-5.3/4.2-5.9 cm LVIDd Index: 2.30 2.4-3.2/2.2-3.1 cm/m2 LVIDs: 4.21 2.0-3.6 cm LVPWd: 1.09 0.7-1.1 cm Ao Root: 3.60 2.1-3.5 cm LA Diam: 5.20 2.7-3.8/3.0-4.0 cm LAIDs Index: 2.23 1.5-2.3 cm/m2 LV Mass: 297.28 67-162/88-224 g LV Mass Index: 127.59 43-95/49-115 g/m2 LVOT Diam: 2.20 3.0+(-)1.3 cm 2D Systolic Function EF 4C: 71.70 >55% EF 2C: 55.90 >55% EF BiP: 64.00 >55% Mitral Valve MV Pk E: 0.62 MV PK A: 0.89 MV Decel Time: 127.00 E/A: 0.70 E'Lateral: 9.65 E'Medial: 8.05 E/E' Med: 7.70 E/E' Lat: 6.40 PHT: 37.00 MVA PHT: 5.95 Decel Gonzales: 4.87 Aortic Valve AoV Pk Jose: 2.74 AoV Mn Jose: 2.14 AoV VTI: 0.62 AoV Pk Grad: 30.00 Aov Mn Grad: 20.00 ANA MARIA Cont.VTI: 1.20 LVOT LVOT Pk Jose: 0.92 LVOT Mn Jose: 0.59 LVOT VTI: 0.18 LVOT Pk Grad: 3.00 LVOT Mn Grad: 2.00 LVOT Diam: 2.20 LVOT Area: 3.80 Diastolic Function MV Pk E: 0.62 MV Pk A: 0.89 E/A: 0.70 E'Medial: 8.05 E/E' Med: 7.70 E' Laterial: 9.65 E/E' Lat: 6.40 Right Ventricle TAPSE (mm): 18.60 TVS' Jose: 17.10 Tricuspid Valve TR Pk Jose: 2.16 TR Pk Grad: 19.00 RA Press: 8.00 RVSP: 27.00 Great Vessels Aorta Ao Root-2D: 3.60 2.0-3.7 cm Ao Asc: 3.40 2.1-3.4 cm Updated in Other Vendor System with Status of Final Broderick Wang MD electronically signed on 11/19/2023 10:42:17 AM with status of Final
== END ==
LOC: HO.CARD 07:51
PROVIDERS: PCP Nurse Practitioner Family; Visit Provider Internal Medicine Cardiovascular Disease
DX: I35.0 Nonrheumatic aortic (valve) stenosis (principal); R00.0 Tachycardia, unspecified; I73.9 Peripheral vascular disease, unspecified
CPT/HCPCS: 93242; 93306; 93925; Q9957

== ENCOUNTER → 2023-11-18 07:56 | Outpatient (BNV) | payer MEDICARE, SELFPAY | PROVIDERS: PCP Nurse Practitioner Family; Visit Provider Internal Medicine Cardiovascular Disease | DX: I47.10 Supraventricular tachycardia, unspecified (principal); I49.3 Ventricular premature depolarization | CPT/HCPCS: 93244; 93306 ==

== ENCOUNTER 2023-12-10 08:49 | Outpatient (AMB) | payer MEDICARE, SELFPAY ==
--- NOTE | 2023-12-10 08:50 | A.OFFVIS_ITS ---
Intake Vital Signs 12/10/23 08:51 Height 6 ft Weight 249 lb 6 oz BMI 33.8 BP 132/80 Blood Pressure Location Lt brachial Position Sitting Pulse 90 Pulse Source Pulse Oximeter Pulse Oximetry (%) 94 Oxygen Delivery Method Room Air Intake Visit Reasons: SWV G0439 - see comments Allergies No Known Allergies Allergy (Verified 12/10/23 08:51) Do you need a note to return to daycare/school/sports/work: No HPI SWV G0439 - see comments HPI Details Pt is here for an SWV. Denies fever, chills, and dizziness. [place] of care in scan pile. PPP will be scanned in chart and copy will be given to pt. HPI Comments History of Present Illness Details Pt reports discomfort and weakness to his BLE. He reports severe weakness with walking (describes a partial claudication component). Pt had an arterial US which showed: Right leg: Diffuse calcified plaque throughout the right lower extremity with elevated velocities in the common femoral artery and profunda femoral artery consistent with mild stenosis. No significant stenosis in the superficial femoral artery. The peroneal and anterior tibial arteries are not visualized. Left leg: Diffuse calcified plaque throughout the left lower extremity with normal velocities and waveforms. No significant stenosis in the superficial femoral artery. The peroneal and anterior tibial arteries are not visualized. Pt does have neuropathy, ? related to neuropathy vs vascular issue. Will refer to vascular for their input seeing his symptoms are really frustrating him. Previous smoker [facility] Medical History Diabetes Dyslipidemia Hyperlipidemia Inappropriate sinus tachycardia Surgical History Hx of hernia repair Hx of cardiac cath Family History Paternal Grandfather CAD (coronary artery disease) Father Pulmonary disease Maternal Grandmother Diabetes mellitus Social History Household Members: Children Housing: House Do you presently have visiting nurse or other home services: No Alcohol intake: current Alcohol intake frequency: holidays/special occasions only Patient Tobacco Use Status: Former Tobacco user e-Cigarette/Vaping Use: Never Used Second Hand Smoke Exposure: No service: No Current occupational status: retired Cognitive needs: No Hearing needs: No Vision needs: No Questionnaire Medicare Wellness Checkup [age] What gender do you identify with?: male During the past 4 weeks, how much have you been bothered by emotional problems such as feeling anxious, depressed, irritable, sad or downhearted, and blue?: not at all During the past 4 weeks, has your physical & emotional health limited your social activities with family, friends, neighbors, or groups?: not at all During the past 4 weeks, how much bodily pain have you generally had?: moderate pain During the past 4 weeks, was someone available to help you if you needed & wanted help?: yes, as much as I wanted During the past 4 weeks, what was the hardest physical activity you could do for at least 2 minutes?: heavy Can you get to places out of walking distance without help? (For eg., can you travel alone on buses, taxis or drive your car?): Yes Can you go shopping for groceries or clothes without someone's help?: Yes Can you prepare your own meals?: Yes Can you do your housework without help?: Yes Because of any health problems, do you need the help of another person with your personal care needs such as eating, bathing, dressing or getting around the house?: No Can you handle your own money without help?: Yes During the past 4 weeks, how would you rate your health in general?: fair During the past 4 weeks how have things been going for you?: good & bad parts about equal Are you having difficulties driving your car?: no Do you always fasten your seat belt when you are in a car?: no During past 4 weeks, have you been bothered by the following: never: Falling or dizzy when standing up, Trouble eating well? and Problems using the telephone?, seldom: Teeth or denture problems?, sometimes: Tiredness or fatigue? and always: Sexual problems? Have you fallen 2 or more times in the past year?: No Are you afraid of falling?: No Are you a smoker?: no During the past 4 weeks, how many drinks of wine, beer, or other alcoholic beverages did you have?: no alcohol at all Do you exercise for about 20 minutes 3 or more times a week?: yes, some of the time Have you been given information to help with the following?: no: Hazards in your house that might hurt you? and no: Keeping track of your medications? How often do you have trouble taking medicines the way you have been told to take them?: sometimes I take medicine as prescribed How confident are you that you can control & manage most of your health problems ?: somewhat confident What is your race?: White Mini Mental State Exam (MMSE) Orientation What is the (year) (season) (date) (day) (month)?: year, season, date, day and month Where are we (state) (county) (town or city) (hospital) (floor)?: state, county, town or city, hospital/clinic and floor Registration Name of 3 unrelated objects clearly and slowly, then ask patient to repeat all 3 of them. (1st repeat determines score. Make sure they can repeat all three): object 1, object 2 and object 3 Attention & Calculation (CHOOSE ONE) Spell WORLD backwards (DLROW): 5 letters Recall Ask patient to repeat the 3 items from question #3.: object 1, object 2 and object 3 Language Show patient a wristwatch & ask what it is. Repeat for pencil.: watch and pencil Ask the patient to repeat the phrase 'No ifs, ands, or buts' after you.: correct Ask the patient to 'take a piece of paper with their right hand' 'fold paper in half' 'place paper on floor': take paper in right hand, fold paper in half and place paper on floor Print the sentence 'CLOSE YOUR EYES' on a piece. If patient actually closes eyes then score.: followed written direction Give patient a blank piece of paper & ask to write a sentence. Score if it contains a noun & verb.: sentence contains subject and verb Ask patient to copy figure of intersecting pentagons exactly. Score if all 10 angles & 2 intersects are included.: all 10 angles present & 2 are intersected Score Score: 30 Activity of Daily Living Bathing - sponge bath, tub bath or shower: receives no assistance (gets in/out by self, if usual bathing means Dressing - getting clothes from closets & drawers, including inner/outer garments & fasteners.: gets clothes & gets completely dressed without help Toileting - going to the 'toilet room' for urine/bowel elimination & cleaning se lf/arranging clothes: goes to toilet room, cleans self, arranges clothes without help Transfer: moves in & out of bed and chair without help (may use support object) Continence: controls urination/bowel movements completely by self Feeding: feeds self without help Total Score: 0 Information obtained from: patient Using telephone: independent Traveling: independent Shopping: independent Preparing meals: independent Housework: independent Taking medicine: independent Managing money: independent PHQ-9 Over the last 2 weeks, how often have you been bothered by any of the following problems? 1. Little interest or pleasure in doing things: not at all 2. Feeling down, depressed, or hopeless: not at all 3. Trouble falling or staying asleep, or sleeping too much: nearly every day 4. Feeling tired or having little energy: more than half the days 5. Poor appetite or overeating: not at all 6. Feeling bad about yourself - or that you are a failure or have let yourself or your family down: not at all 7. Trouble concentrating on things, such as reading the newspaper or watching television: not at all 8. Moving or speaking so slowly that other people could have noticed. Or the opposite - being so fidgety or restless that you have been moving around a lot more than usual: not at all 9. Thoughts that you would be better off or of hurting yourself in some way: not at all Total score: 5 Depression Screening Interpretation: Negative Depression Screening Done: Yes 13340 - PHQ-9 Billing: Yes Source: Developed by Drs. Raji Jones, Joanna Lopez, Nathaniel Edgar and colleagues, with an educational galen from [employer]. RAMON-7 AMB Questionnaire RAMON-7 Date RAMON - 7 assessed: 12/10/23 Feeling nervous, anxious, or on edge: 0 = Not at all Not being able to stop or control worryin = Not at all Worrying too much about different things: 0 = Not at all Trouble relaxin = Not at all Being so restless that it is hard to sit still: 0 = Not at all Becoming easily annoyed or irritable: 0 = Not at all Feeling afraid as if something awful might happen: 0 = Not at all Total RAMON-7 score (0-4 normal; 5-9 mild; 10-14 moderate; 15-21 severe): 0 Source: Developed by Drs. Raji Jones, Joanna Lopez, Nathaniel Edgar and colleagues, with an educational galen from [employer]. RAMON-7 Assessment Billing RAMON-7 Assessment Tool: RAMON-7 Assessment 14611 Review of Systems Const Reports as per HPI Physical Exam Vital Signs: Last Vital Signs Pulse 90 12/10/23 08:51 BP 132/80 12/10/23 08:51 Pulse Ox 94 12/10/23 08:51 Oxygen Delivery Method Room Air 12/10/23 08:51 BMI result Body Mass Index 33.8 Const General: cooperative Nutritional Appearance: obese Orientation/consciousness: patient oriented x3 Neuro Other: - romberg, can tandem walk, can walk and turn, can rise from sitting to standing, passed whisper test General: patient oriented x3 Psych Appearance: grossly normal Mental Status: mental status grossly normal Speech and movement: Normal speech and movement present Affect: normal affect Attitude: cooperative Thought process: Normal thought process present Thought content: Normal thought content present Insight: Good insight present (Psych) Judgement: Good judgement present (Psych) Assessment & Plan Assessment & Plan (1) Leg heaviness: Code(s): R29.898 - Other symptoms and signs involving the musculoskeletal system (2) Claudication: Code(s): I73.9 - Peripheral vascular disease, unspecified Plan: referred to vascular for an eval. Plan The patient agreed to the use of a er medical technician for this encounter. Scribed for LENA Sun- by Luma Medina er medical technician, on 12/10/2023 at 09:10 EST. Orders: Referrals Vascular Surgery Referral I73.9 - Peripheral vascular disease, unspecified, R29.898 - Other symptoms and signs involving the musculoskeletal system Quality Reporting (2019) Depression/Bipolar (159/160/161/177) PHQ-9: Total score: 5 Coding Level of Care Code Medicare Subsequent (G0439) Diagnoses Leg heaviness R29.898 Claudication I73.9 CPT Codes Advance Care Planning - Time spent: 1-15 minutes, on File ([id number]) Additional Codes RAMON-7 Assessment Billing - RAMON-7 Assessment Tool: RAMON-7 Assessment 78312 ([id number]) Advance Care Planning Forms completed: Health Care Proxy (signed, in scan pile) and MOLST (form at home, pt reports that he will bring it in at some point) Time spent: 1-15 minutes, on File Actual minutes spent: 15
[2023-12-10 08:51] VITALS: BP 132/80; PULSE 90; O2SAT 94; BMI 33.8
== END 2023-12-10 09:45 | disposition home or self-care (01) ==
PROVIDERS: PCP Nurse Practitioner Family; Visit Provider Nurse Practitioner Family
DX: Z00.00 Encounter for general adult medical examination without abnormal findings (principal); R29.898 Other symptoms and signs involving the musculoskeletal system; I73.9 Peripheral vascular disease, unspecified

== ENCOUNTER → 2023-12-10 08:49 | Outpatient (BNVA) | payer MEDICARE, SELFPAY | PROVIDERS: PCP Nurse Practitioner Family; Visit Provider Nurse Practitioner Family | DX: I73.9 Peripheral vascular disease, unspecified (principal); R29.898 Other symptoms and signs involving the musculoskeletal system | CPT/HCPCS: 96127 ==

== ENCOUNTER 2023-12-24 08:07 | Outpatient (AMB) | payer MEDICARE, SELFPAY ==
--- NOTE | 2023-12-24 08:27 | MHC.OFFVIS ---
Intake Visit Reasons: 6m/BPH, hematuria Intake Note: Patient is present for 6m/BPH, HEMATURIA Urology Medication:TAMSULOSIN, FINASTERIDE Antibiotic Allergy:NONE Blood ASPIRINThinner: Allergies No Known Allergies Allergy (Verified 12/10/23 08:51) Medication List - Last Reconciled 12/24/23 by Gordy Hedrick MD aspirin (Adult Aspirin Regimen) 81 mg PO DAILY betamethasone, augmented 0.05 % 1 appl topical BID chwyzsfvnh-mehrwdch-zlnrvxrqpi 160-9-4.8 mcg/actuation (Breztri Aerosphere) 2 inhalations inhalation BID cholecalciferol (vitamin D3) 50 mcg PO DAILY duloxetine 20 mg PO DAILY empagliflozin (Jardiance) 10 mg PO DAILY finasteride (Proscar) 5 mg PO DAILY 90 days furosemide (Lasix) 40 mg PO DAILY ipratropium-albuterol 20-100 mcg/actuation (Combivent Respimat) 1 puff inhalation Q6H PRN ivabradine (Corlanor) 5 mg PO DAILY 90 days meloxicam 15 mg PO DAILY PRN metformin 1,000 mg PO BID 90 days omeprazole 40 mg PO DAILY rosuvastatin 40 mg PO DAILY tacrolimus 0.1% topical tamsulosin (Flomax) 0.4 mg PO BID verapamil ER 240 mg PO DAILY vitamin B complex (B Complex-Vitamin B12 tablet) 1 tab PO DAILY HPI Comments Details: 12/24/23--Cody is a 73-year-old gentleman who was initially evaluated due to hematuria. Workup included CT scan and office cystoscopy which noted an obstructive median lobe. The patient is prescribed tamsulosin and finasteride was added in May of this year. He states that he has not noticed a major difference in his voiding. He is bothered mainly by getting up at night about every 2 hours. Lasix 40 mg is on his medication list but the patient states he has not been taking this for several months. He has significant coronary artery disease and peripheral vascular disease and would need cardiac clearance prior to any surgical procedures. Follow-up in 3 months. Review of chart: 06/25/2023--Cody was seen as a new patient evaluation 05/11/2023, referred due to hematuria. He was started on tamsulosin 0.4 mg daily for obstructive voiding symptoms. He saw blood in his urine in March, history of nicotine use. He states he has not seen any further episodes of blood in the urine. He presents for office cystoscopy today. Cystoscopy findings -- prostatic urethra bilobar enlargement with prominent median lobe, bulbous urethra WNL, no suspicious bladder lesions visualized. I have discussed treatment options for his concerns regarding urination. Maximizing medication versus surgical management including but not limited to GreenLight laser or TURP. The patient wants to avoid surgical procedures at this time. Plan discussed increase tamsulosin to b.i.d. and start Proscar 5 mg daily. 05/11/23--Cody is a 73-year-old male who has been referred due to hematuria. PMHx of dck-mshejrz-ylgqpplkk diabetes mellitus, essential hypertension, mixed hyperlipidemia, mood disorder. In review of the chart the patient is recently an inpatient at [place], he presented to the ED on 03/30/2023 complaining of painless blood in stools, he had workup done by GI and is discharged on 04/02/23. I reviewed CT imaging done on 03/30/2023 kidneys were within normal limits. The patient complains of nocturia x4, complains of intermittent stream. States he noticed episode of blood in the urine after urination this March x1 episode, denies dysuria. Denies history of kidney stones, history of nicotine use, cigarette use started at age 15 quit age 63 smoked up to a pack and a half daily. I have reviewed chart CT imaging as noted above kidneys negative for stones or solid masses, 03/17/2023 urine culture less than 10,000 colonies. I have discussed reasons for blood in the urine may include but are not limited to kidney stones, cancer in the urinary tract, kidney stone disease or inflammatory conditions of the urinary tract, BPH. I have discussed workup to include evaluation of the upper tracts and consideration for cystoscopy evaluation. UA-blood trace, leukocytes negative; bladder scan PVR 20 mL. Prostate exam: Smooth, enlarged no suspicious nodules. Plan discussed schedule office cystoscopy. Trial tamsulosin 0.4 mg daily. [facility] Medical History Diabetes Dyslipidemia Hyperlipidemia Inappropriate sinus tachycardia Surgical History Hx of hernia repair Hx of cardiac cath Family History Paternal Grandfather CAD (coronary artery disease) Father Pulmonary disease Maternal Grandmother Diabetes mellitus Social History Household Members: Children Housing: House Do you presently have visiting nurse or other home services: No Alcohol intake: current Alcohol intake frequency: holidays/special occasions only Patient Tobacco Use Status: Former Tobacco user e-Cigarette/Vaping Use: Never Used Second Hand Smoke Exposure: No service: No Current occupational status: retired Cognitive needs: No Hearing needs: No Vision needs: No Review of Systems Const All systems reviewed & are unremarkable except as noted in HPI and below Reports no additional complaints Eyes Reports no additional complaints ENT Reports no additional complaints Card Reports no additional complaints Resp Reports no additional complaints GI Reports no additional complaints Reports as per HPI Musc Reports no additional complaints Skin/Breast Reports system reviewed and no additional complaints, except as documented Neuro Reports no additional complaints Psych Reports no additional complaints Endo Reports no additional complaints Dillon/Lymph Reports no additional complaints Aller/Immun Reports no additional complaints Results AMB Urinalysis, Automated UA Leukoctes 0 Sharita/uL Last Edit by KINJAL Stephens on 12/24/23 08:47 UA Nitrite Negative Last Edit by KINJAL Stephens on 12/24/23 08:47 UA Urobilinogen 0.2 mg/dL Last Edit by KINJAL Stephens on 12/24/23 08:47 UA Protein 0 mg/dL Last Edit by KINJAL Stephens on 12/24/23 08:47 UA pH 5.0 Last Edit by KINJAL Stephens on 12/24/23 08:47 UA Blood 0 Musa/uL Last Edit by KINJAL Stephens on 12/24/23 08:47 UA Specific [place] 1.015 Last Edit by KINJAL Stephens on 12/24/23 08:47 UA Ketone Negative Last Edit by KINJAL Stephens on 12/24/23 08:47 UA Bilirubin 0 mg/dL Last Edit by KINJAL Stephens on 10/24/24 08:47 UA Glucose 1000 mg/dL Last Edit by KINJAL Stephens on 12/24/23 08:47 Results Reviewed Results Reviewed: Date of Service: 03/30/23 EXAMINATION: CTA ABDOMEN AND PELVIS WITH AND WITHOUT CONTRAST CLINICAL INFORMATION: Rectal bleeding COMPARISON: CT chest from 12/30/2022, CT abdomen from 02/28/2021 FINDINGS: LOWER LUNGS: Emphysematous changes. Previously identified lung nodules are less conspicuous on current examination. No pneumothorax. No large pleural effusion. LIVER, GALLBLADDER, AND BILIARY TREE: The liver is normal in size, shape, and attenuation. Redemonstration of multiple hypodense hepatic foci the largest measuring up to 1.2 cm in the left hepatic lobe, stable No biliary ductal dilatation is present. The gallbladder is unremarkable with no evidence of radiopaque gallstones, gallbladder wall thickening, or obvious pericholecystic inflammatory changes. PANCREAS: Mild atrophy of the pancreas. SPLEEN: Unremarkable. ADRENAL GLANDS: Unremarkable. KIDNEYS AND URETERS: The kidneys are normal in size, shape, and attenuation. No hydronephrosis, hydroureter, or calculi seen. No perinephric stranding. BLADDER: Unremarkable. GASTROINTESTINAL TRACT: Small hiatal hernia. Colonic diverticulosis without acute diverticulitis. The small and large bowel are unremarkable. The appendix is unremarkable. ABDOMINAL WALL: Status post right inguinal repair. Small fat filled left inguinal hernia. LYMPH NODES: No enlarged lymph nodes per size criteria. VASCULAR: Abdominal aorta is nonaneurysmal. Atherosclerotic calcifications of the abdominal aorta and its branches. No evidence of contrast extravasation to suggest hemorrhage. PELVIC VISCERA: Prostate measures 5.2 cm. OSSEOUS STRUCTURES: Multilevel degenerative changes of the thoracolumbar lumbosacral spine. Osteopenia. Sclerotic focus right femoral head/neck statistically representing a bone island. Additional bone island noted in the left iliac wing. Levocurvature of the lumbar spine. IMPRESSION: 1. No acute process of the abdomen or pelvis identified. 2. No evidence of contrast extravasation to suggest hemorrhage. 3. Redemonstration of multiple hypodense hepatic foci the largest measuring up to 1.2 cm in the left hepatic lobe, stable. 4. Small hiatal hernia. 5. Colonic diverticulosis without acute diverticulitis. 6. Status post right inguinal repair. 7. Prostate measures 5.2 cm. 8. Osteopenia. Assessment & Plan Assessment & Plan (1) BPH loc w urin obs/LUTS: Code(s): N40.1 - Benign prostatic hyperplasia with lower urinary tract symptoms Category: Medical (2) Nocturia: Code(s): R35.1 - Nocturia Category: Medical (3) Hematuria: Code(s): R31.9 - Hematuria, unspecified Category: Medical Plan tamsulosin to b.i.d., Proscar 5 mg daily. Follow-up in 3 months Orders: Orders AMB Urinalysis Automated Today Z13.9 - Encounter for screening, unspecified Medications: Refilled finasteride (Proscar) 5 mg PO DAILY 90 days 90 tabs 3RF tamsulosin (Flomax) 0.4 mg PO BID 180 caps 2RF Patient Instructions: The patient had an opportunity to ask questions regarding treatment plan. The patient expressed understanding and agreement with the above treatment plan. The patient is aware they should contact our office by phone for worsening of their current condition or the appearance of new symptoms. Compliance is encouraged with any medications and followup testing that is ordered. It is a privilege to be allowed the opportunity to participate in the urologic care of your patient. If you have any questions or concerns regarding treatment for the above conditions please do not hesitate to contact me. The office telephone contact is [phone]. This note is constructed in part using voice recognition software. While every effort has been made to ensure accuracy shoemaking cutter errors may have been included. Yours sincerely, Gordy Hedrick MD Coding Level of Care Code Est Pt Level 4 (76421) Diagnoses BPH loc w urin obs/LUTS N40.1 Nocturia R35.1 Hematuria R31.9
== END 2023-12-24 09:02 | disposition home or self-care (01) ==
PROVIDERS: PCP Nurse Practitioner Family; Visit Provider Urology
DX: N40.1 Benign prostatic hyperplasia with lower urinary tract symptoms (principal); R35.1 Nocturia; R31.9 Hematuria, unspecified; Z13.9 Encounter for screening, unspecified
CPT/HCPCS: 99214

== ENCOUNTER → 2023-12-24 08:07 | Outpatient (BNVA) | payer MEDICARE, SELFPAY | PROVIDERS: PCP Nurse Practitioner Family; Visit Provider Urology | DX: N40.1 Benign prostatic hyperplasia with lower urinary tract symptoms (principal); R35.1 Nocturia; R31.9 Hematuria, unspecified | CPT/HCPCS: 81003; 99212 ==

== ENCOUNTER 2024-01-21 11:08 | Outpatient (AMB) | payer MEDICARE, SELFPAY ==
[2024-01-21 11:17] VITALS: BMI 33.8
--- NOTE | 2024-01-21 11:17 | A.OFFVIS_ITS ---
Vital Signs 01/21/24 11:17 Height 6 ft Weight 249 lb BMI 33.8 Intake Visit Reasons: [facility] referral for PVD, unspecified Intake Note: [facility] for bilateral LE pain for 21 yrs. Hx w/ venous procedures. Pt states he has heaviness and weakness in bilateral LE, like he has weights attached to his legs Accompanied by: Self / Same As Patient Allergies No Known Allergies Allergy (Verified 01/21/24 11:25) HPI HPI [facility] referral for PVD, unspecified: Details: Cody, a pleasant 73-year-old male patient, is presenting as a referral from his PCP for ongoing bilateral leg weakness with pain. He recently had an arterial duplex done on November 17. He states overall he has been going on for approximately 20 years now but has gotten progressively worse over the last few months. He is a former smoker but quit approximately 10 years ago. He is a diabetic. He has not had any falls in the last year. He states he is only able to walk approximately 200 ft before he begins having pain in his legs from his thighs all the way down to his feet. He states he used to be able to walk 203 100 yd without difficulty. He does not use any assistive devices when he walks. He states he has more concerns of shortness of breath and feeling his heart racing when he is walking as well. He is followed by cardiology and pulmonology. Recently had a Holter monitor which revealed SVT. He also has a history of vein stripping with Dr. Way approximately 10-12 years ago. [facility] Medical History Diabetes Dyslipidemia Hyperlipidemia Inappropriate sinus tachycardia Surgical History Hx of hernia repair Hx of cardiac cath Family History Paternal Grandfather CAD (coronary artery disease) Father Pulmonary disease Maternal Grandmother Diabetes mellitus Social History Household Members: Children Housing: House Do you presently have visiting nurse or other home services: No Alcohol intake: current Alcohol intake frequency: holidays/special occasions only Patient Tobacco Use Status: Former Tobacco user e-Cigarette/Vaping Use: Never Used Second Hand Smoke Exposure: No service: No Current occupational status: retired Cognitive needs: No Hearing needs: No Vision needs: No Review of Systems Const Reports as per HPI and Denies weakness ENT Reports Normal hearing present and Denies dizziness Card Reports as per HPI, Denies chest pain, Denies chest pain at rest, Denies chest pain with activity, Denies dyspnea and Denies dyspnea on exertion Resp Reports as per HPI, Denies cough, Denies dyspnea and Denies dyspnea on exertion GI Reports as per HPI, Denies abdominal pain, Denies nausea and Denies vomiting Musc Denies numbness Skin/Breast Reports as per HPI, Denies erythema and Denies wounds Neuro Reports Normal hearing present, Denies dizziness, Denies numbness, Denies Sensory deficit (Neuro) and Denies weakness Psych Reports no additional complaints Endo Reports no additional complaints Physical Exam Vital Signs: BMI result Body Mass Index 33.8 Const General: healthy appearing and no acute distress Orientation/consciousness: patient oriented x3 HEENT Head: Yes normal to inspection Ears: hearing grossly normal bilaterally Mouth: Normal oral and palatal mucosa present Resp Effort & Inspection: normal respiratory effort and able to speak in complete sentences Auscultation: clear to auscultation bilaterally Cardio Jugular venous distension: no JVD Rate: regular rate Rhythm: regular rhythm Heart sounds: S1 normal heart sound present and S2 normal heart sound present Bruits: no abdominal aortic bruits, no carotid bruits, no femoral bruits and no renal bruits Peripheral pulses: Peripheral pulses 2+ throughout GI Inspection: Yes normal to inspection Palpation (GI): No Abdominal aortic bruit present Skin General skin exam: no rashes or lesions noted Wounds: no wounds Hair: normal Neuro General: patient oriented x3 Cranial nerves: Yes Normal hearing present Cognition (Neuro): normal cognition Gait exam (Neuro): Normal gait present Motor exam (neuro): 5/5 motor strength present throughout Sensory Exam: No Sensory deficit (Neuro) Extrem Other: Left lower extremity: Very faint and difficult to palpate DP and PT pulses. Feet cool to the touch. Trace peripheral edema noted. Right lower extremity: Palpable DP and PT pulses. Feet cool to touch, less than left foot. Trace peripheral edema noted. Bilateral lower extremities: No ulcerations or wounds noted. General: Yes normal to inspection, Yes full ROM, Yes capillary refill normal and Yes normal gait Results Reviewed Results Reviewed: Arterial duplex ultrasound from November 17: Right leg reveals diffuse calcified plaque throughout the right lower extremity with elevated velocities in the common femoral and profunda femoral artery consistent with mild stenosis. Left leg reveals diffuse calcified plaque throughout the lower extremity with normal velocities and waveforms. Assessment & Plan Assessment & Plan (1) PVD (peripheral vascular disease): Code(s): I73.9 - Peripheral vascular disease, unspecified Category: Medical Plan: Cody presents today as a referral from his PCP for ongoing bilateral lower extremity weakness and increased pain. He states this has been going on for over 20 years but has been particularly worse recently. His product marketing programs manager ordered a [place] arterial duplex bilateral which revealed some disease in the right lower extremity. The patient does complain that he is having more difficulty with the shortness of breath and tachycardia when he is walking, which he thinks is making his legs worse. We discussed the importance of following up with both Cardiology and pulmonology. We will order a follow up ultrasound arterial duplex for her 4 months from now with a follow up appointment. We discussed the importance of walking/physical activity, a well- balanced diet, and close follow up with his other medical providers. If there are any questions or concerns, please do not hesitate to reach out to us. Orders: Orders US arterial duplex LE BI 4 Months I73.9 - Peripheral vascular disease, unspecified Coding Level of Care Code New Pt Level 4 (36601) Diagnoses PVD (peripheral vascular disease) I73.9 Comment Review of arterial duplex ultrasound
== END 2024-01-21 11:53 | disposition home or self-care (01) ==
PROVIDERS: PCP Nurse Practitioner Family; Visit Provider Physician Assistant Surgical
DX: I73.9 Peripheral vascular disease, unspecified (principal)
CPT/HCPCS: 99204

== ENCOUNTER → 2024-01-21 11:08 | Outpatient (BNVA) | payer MEDICARE, SELFPAY | PROVIDERS: PCP Nurse Practitioner Family; Visit Provider Physician Assistant Surgical | DX: I73.9 Peripheral vascular disease, unspecified (principal); R53.1 Weakness; M79.605 Pain in left leg; M79.604 Pain in right leg | CPT/HCPCS: 99202 ==

== ENCOUNTER 2024-04-25 07:55 | Outpatient (AMB) | payer MEDICARE, SELFPAY ==
--- OUTSIDE RECORDS SUMMARY | 2024-04-25 08:02 | XMS_ITS ---
Author Organization [facility] Address [address] [place] [id number] Care Team Providers Care Ad Operations Specialist Name Role Phone Geovani [place] Primary Care Provider Unav ailable Crow [place] Unavailable [phone] REASON FOR VISIT ON Encounters Encounter Location Date Provider Diagnosis [address] [address] 07/23/2023 Crow [place] Plan Of Treatment Next Appt Details Provider Name:Crow [place] , 05/03/2024 10:30:00 AM, [address] [place] [address], [id number], Progress Notes * Cody REBOLLAR WDOB: 3 (73 yo M)Acc No.[id number]:07/23/2023 Patient:?Cody Rebollar :1950???Age:73 Y???Sex:Male Address:[address] [place] [address] [place] [address] * true * Date:? Generated for Kirill kaplan/Lily/eTransmitting on:?04/25/2024 08:01 AM EST
--- OUTSIDE RECORDS SUMMARY | 2024-04-25 08:02 | XMS_ITS ---
Author Organization [facility] Address [address] [place] [address] Care Team Providers Care Extension Forester Name Role Phone PAOLO TERRELL Primary Care Provider Raji Salas Unavailable [phone] REASON FOR VISIT pathology/ 3yr colon recall Encounters Encounter Location Date Provider Diagnosis [facility] [address] [place] [address] 04/09/2023 Raji Tellez PLAN OF TREATMENT No Information
--- OUTSIDE RECORDS SUMMARY | 2024-04-25 08:02 | XMS_ITS ---
Author Organization [facility] Address [address] [place] [address] Care Team Providers Care Electrician Station Assistant Name Role Phone PAOLO TERRELL Primary Care Provider Raji aSlas Unavailable [phone] Ezekiel uLu Jr Unavailable REASON FOR VISIT GI bleed Encounters Encounter Location Date Provider Diagnosis [facility] [address] [id number] 04/01/2023 Ezekiel Luu Jr PLAN OF TREATMENT No Information
--- OUTSIDE RECORDS SUMMARY | 2024-04-25 08:02 | XMS_ITS ---
Author Organization [facility] Address [address] [place] [address] Care Team Providers Care Principal Cloud Architect Name Role Phone Geovani [place] Primary Care Provider Unav ailable Crow [place] Unavailable [phone] Allergies No Known Allergies REASON FOR VISIT At Risk Footcare Medications Medication SIG (Take, Route, Frequency, Duration) Notes Start Date End Date Status Vitamin B12 Not-Taki ng Stiolto Respimat Not -Taking Vitamin D2 Not-Takin g Meloxicam 15 MG Orally Once a day Not-Taking Lipoic Acid Not-Taki ng Ketoconazole Active Omeprazole 40 MG Orally twice a day Active Extra Depth Orthopedic Shoes (1 Pair) with Customized Heat Molded Multidensity Innersoles (3 Pair) as directed Dx: NIDDM/Polyneuropathy (E11.42), Hammertoe Foot Deformity (M20.41,M20.42), Preulcerative Skin Lesion(s) (L85.1 11/03/2023 Active Gabapentin 300 MG Orally Three times a day Not-Taking Furosemide 40 mg once a day No t-Taking Combivent Active Clotrimazole-Betamethason e Active Mucinex Active metFORMIN HCl 500 MG Orally Once a day Active Betamethasone Valerate Active Tacrolimus 0.1 % External for 90 Active dilTIAZem HCl ER Coated Beads 240 MG Oral for 90 Active Betamethasone Dipropionate Aug 0.05 % External for 30 A ctive Amoxicillin-Pot Clavulanate Active Baby Aspirin 81 mg once a day Active Eucrisa 2 % External for 30 Ac tive DULoxetine HCl 20 MG Oral for 90 Active Jardiance 10 MG Oral for 90 Ac tive Rosuvastatin Calcium 40 MG Oral for 90 Active Tamsulosin HCl 0.4 MG Oral for 90 Active Corlanor 5 MG Oral for 90 Acti ve Combivent Respimat 20-100 MCG/ACT Inhalation for 90 Active Verapamil HCl ER 240 MG Oral for 90 Active Trelegy Ellipta 100-62.5-25 MCG/ACT Inhalation for 90 Act alejandro Finasteride 5 MG Oral for 90 A ctive Vitamin B Complex - as directed Orally Active Vitamin D3 Active Hydrocortisone Activ e Ciclopirox Olamine A ctive Triamcinolone Acet & Anesth Active Fluocinonide Active Social History Tobacco Use: Social History Observation Description Date Details (start date - stop date) Former Smoker NA - NA Tobacco Use/Smoking Question Answer Notes Are you a: former smoker Additional Findings: Tobacco Non-User Cu rrent non-smoker,Ex-cigarette smoker,Ex-very heavy cigarette smoker (40+/day) Alcohol Screen Question Answer Notes Did you have a drink containing alcohol in the p ast year? No Points 0 Interpretation Negative Tobacco use other than smoking: Question Answer Notes Are you an other tobacco user? No Vital Signs Height 6 ft in 02/02/2024 Weight 245 lbs 02/02/2024 BMI 33.22 kg/m2 02/02/2024 Blood pressure systolic 138 mm Hg 02/02/20 24 Blood pressure diastolic 74 mm Hg 024 Procedures Procedure Date Ordered Date Performed Result Body Sit e 05505-[id number] NAIL, 6 OR MORE 02/02/2024 N/A 31988-DJUS SKIN LESIONS, 2 TO 4 02/02/2024 N/A Encounters Encounter Location Date Provider Diagnosis [facility] [place] [address] [place] [address] 02/02/2024 Crow [place] Type 2 diabetes mellitus with diabetic polyneuropathy E11.42 and Tinea unguium B35.1 Assessments Encounter Date Diagnosis (ICD Code) Assessment Notes Treatment Notes Treatment Clinical Notes Section Notes 02/02/2024 Type 2 diabetes mellitus with diabetic polyneuropathy (ICD-10 - E11.42) 02/02/2024 Tinea unguium (ICD-10 - B35.1) 02/02/2024 Other Plan Of Treatment Pending Test Test Name Order Date [id number] NAIL, 6 OR MORE 02/02/2024 93337-RDLO SKIN LESIONS, 2 TO 4 02/02/20 24 Next Appt Details Follow Up: prn, Reason: Provider Name:Crow [place] , 05/03/2024 10:30:00 AM, [address] [place], [address], Procedure Notes * Category Sub-Category Detail Notes Debride Nail 6-10 Nail debridement Performance o f this nail treatment by a nonprofessional would put this patients foot and overall health at risk. Therefore, debridement to affected nail(s), as described in exam, was performed extensively to reduce/remove overall nail length, girth, thickness, subungual debris, and necrotic tissue, by manual and/or electrical means through the use of a nail nipper and/or dremel-type back grinder, to a more viable healthy nail plate or bed tissue 6-10 nails in total. Silver nitrate was used for any petechial bleeding as necessary. Definitive antifungal treatment options, both pharmaceutical and surgical, have been reviewed and discussed with the patient. The patient solely prefers the use of intermittent/as needed professional debridement services for their nail condition and understands the need for additional periodic treatments to maintain effectiveness in symptomatic relief - 49414 Keratoma Treatment Parring or Cutting o f Benign Hyperkeratotic Lesion(s) (-56) 2-4 Lesions - The Benign hyperkeratotic lesions, ( 4) in total, locations as stated and described in exam, were pared, and/or cut utilizing a sterile 15 blade, tissue nippers, and/or power dremel instrumentation - 78742 Progress Notes * Cody OSEGUERA WDOB: 3 (73 yo M)Acc No.[id number]:02/02/2024 Progress Note Patient:?Cody OSEGUERA W Provider:?Crow [place] DPM :1950???Age:73 Y???Sex:Male Con e:02/02/2024 Address:[address] [place], [place] [address] Pcp:LOU Sun Subjective: * Chief Complaints: * ???At Risk Footcare * HPI: ???At Risk footcare:?Pt States Last PCP Visit:?Date?10/12/2023 ???Toe pain:?Treatments:?Rx shoes, states delivery pending.? * ROS:?General/Constitutional:?Nausea?denies.?Vomiting?denies.?Hunger Thirst?denies.?Loss appetite?denies.?Chills?denies.?Fatigue?admits.?Fever?denies.?Night Sweats?denies.?Unexplained weight loss?denies.?Unexplained weight gain?denies.?HEENTM:?Dentures?denies.?Dizziness?denies.?Glasses/contacts?denies.?Retinopathy?de nies.?Blurred/double vision?denies.?TMJ?denies.?Discharge/drainage?denies.?Implants?denies.?Sore throat?denies.?Dental implants?denies.?Hard of hearing ?denies.?Difficulty chewing/swallowing/speaking?denies.?Nose bleeds?denies.?Sore mouth?denies.?Respiratory:?On Oxygen?denies.?Pneumonia/pleurisy?admits.?Bronchitis?admits.?Emphysema?denies.?C oughing?admits.?Cough blood?denies.?Shortness of breath?admits.?Wheezing?denies.?Cardiovascular:?Pacemaker?denies.?MVP?denies.?WPW?denies.?CHF?denies.?Heart attack?denies.?Septal defect?denies.?Rapid beat?admits.?Chest pain ?denies.?Atrial Fib.?denies.?Murmur/Palpitations?denies.?Gastrointestinal:?Hemorrhoids?denies.?Stomach/Abdominal pain?denies.?Dark blood stool?denies.?Irritable bowel ?denies.?Constipation?denies.?Diarrhea?denies.?Hematology:?Swelling?denies.?Clots?denies.?Varicose Veins?admits.?Bruising?denies.?Bleeding problem?denies.?Genitourinary:?Blood urine?denies.?Frequent/Painfu/urination/bladder control?denies.?Kidney stones?denies.?Infection (UTI)?denies.?Nephropathy?denies.?sex trans dis (STD)?denies.?Prostate?admits.?Musculoskeletal:?Hammertoes?admits.?Bunions?denies.?Back Pain?denies.?Muscle Cramps/ Resting?denies.?Muscle cramps / walking?denies.?Generalized aches and pains?admits.?Weakness?admits.?Integ.:?Mark?denies.?Scars?denies.?Corns/calluses?admits.?Ingrown nails?admits.?Painful nails?denies.?Open Sores?denies.?Rashes?denies.?Neurologic:?Difficulty sleeping?admits.?Brain disorder?denies.?Numbness?admits.?Balance trouble?denies.?Confusion?denies.?Fainting/blackouts?denies.?Tingling?admits.?Tr emors?denies.? * Medical History:? * Surgical History:?hernia 199 2heel spur 1998Hernia Repair 2001 * Hospitalization/Major Diagno stic [place] [place] * Family History:?Mother: christin dutta, diagnosed with Other malignant neoplasm of unspecified site, Diabetic - NIDDM.?Father: .?Paternal Grand Father: diagnosed with Unspecified cerebral artery occlusion with cerebral infarction.?Maternal Grand Mother: diagnosed with Diabetic - NIDDM.?Siblings: diagnosed with Unspecified essential hypertension.? * Social History:?Tobacco Use:?Tobacco Use/Smoking?Are you a:?former smoker ?Additional Findings: Tobacco Non-User?Current non-smoker,Ex-cigarette smoker,Ex-very heavy cigarette smoker (40+/day) ?Tobacco use other than smoking?Are you an other tobacco user??No ???Drugs/Alcohol:?Drugs?Have you used drugs other than those for medical reasons in the past 12 months??No ?Alcohol Screen?Did you have a drink containing alcohol in the past year??No ?Points?0 ?Interpretation?Negative ???Miscellaneous:?Caffeine: yes, frequency: 3-4. ?Children: yes. ?Exercise: yes. ?Marital status: single. ?Occupation: retired. * Medications:?TakingFluocinon kerri Hydrocortisone Triamcinolone Acet & Anesth Ciclopirox Olamine Vitamin D3 Vitamin B Complex - Capsule as directed Orally Verapamil HCl ER 240 MG Capsule Extended Release 24 Hour Oral Combivent Respimat 20-100 MCG/ACT Aerosol Solution Inhalation Corlanor 5 MG Tablet Oral Finasteride 5 MG Tablet Oral Trelegy Ellipta 100-62.5-25 MCG/ACT Aerosol Powder Breath Activated Inhalation Jardiance 10 MG Tablet Oral DULoxetine HCl 20 MG Capsule Delayed Release Particles Oral Tamsulosin HCl 0.4 MG Capsule Oral Rosuvastatin Calcium 40 MG Tablet Oral Eucrisa 2 % Ointment External Tacrolimus 0.1 % Ointment External Betamethasone Dipropionate Aug 0.05 % Cream External dilTIAZem HCl ER Coated Beads 240 MG Capsule Extended Release 24 Hour Oral Amoxicillin-Pot Clavulanate Baby Aspirin 81 mg once a day Betamethasone Valerate Clotrimazole-Betamethasone Combivent metFORMIN HCl 500 MG Tablet Orally Once a day Mucinex Omeprazole 40 MG Capsule Delayed Release Orally twice a day Ketoconazole Extra Depth Orthopedic Shoes (1 Pair) with Customized Heat Molded Multidensity Innersoles (3 Pair) as directed Dx: NIDDM/Polyneuropathy (E11.42), Hammertoe Foot Deformity (M20.41,M20.42), Preulcerative Skin Lesion(s) (L85.1 Taking Fluocinonide Taking Hydrocortisone Taking Triamcinolone Acet & Anesth Taking Ciclopirox Olamine Taking Vitamin D3 Taking Vitamin B Complex - Capsule as directed Orally Taking Verapamil HCl ER 240 MG Capsule Extended Release 24 Hour Oral Taking Combivent Respimat 20-100 MCG/ACT Aerosol Solution Inhalation Taking Corlanor 5 MG Tablet Oral Taking Finasteride 5 MG Tablet Oral Taking Trelegy Ellipta 100-62.5-25 MCG/ACT Aerosol Powder Breath Activated Inhalation Taking Jardiance 10 MG Tablet Oral Taking DULoxetine HCl 20 MG Capsule Delayed Release Particles Oral Taking Tamsulosin HCl 0.4 MG Capsule Oral Taking Rosuvastatin Calcium 40 MG Tablet Oral Taking Eucrisa 2 % Ointment External Taking Tacrolimus 0.1 % Ointment External Taking Betamethasone Dipropionate Aug 0.05 % Cream External Taking dilTIAZem HCl ER Coated Beads 240 MG Capsule Extended Release 24 Hour Oral Taking Amoxicillin-Pot Clavulanate Taking Baby Aspirin 81 mg once a day Taking Betamethasone Valerate Taking Clotrimazole-Betamethasone Taking Combivent Taking metFORMIN HCl 500 MG Tablet Orally Once a day Taking Mucinex Taking Omeprazole 40 MG Capsule Delayed Release Orally twice a day Taking Ketoconazole Taking Extra Depth Orthopedic Shoes (1 Pair) with Customized Heat Molded Multidensity Innersoles (3 Pair) as directed Dx: NIDDM/Polyneuropathy (E11.42), Hammertoe Foot Deformity (M20.41,M20.42), Preulcerative Skin Lesion(s) (L85.1 Not-Taking/PRNFurosemide 40 mg once a day Gabapentin 300 MG Capsule Orally Three times a day Lipoic Acid Meloxicam 15 MG Tablet Orally Once a day Stiolto Respimat Vitamin B12 Vitamin D2 Medication List reviewed and reconciled with the patientNot-Taking/PRN Furosemide 40 mg once a day Not-Taking/PRN Gabapentin 300 MG Capsule Orally Three times a day Not-Taking/PRN Lipoic Acid Not-Taking/PRN Meloxicam 15 MG Tablet Orally Once a day Not- Taking/PRN Stiolto Respimat Not-Taking/PRN Vitamin B12 Not-Taking/PRN Vitamin D2 Medication List reviewed and reconciled with the patient * Allergies:?N.K.D.A.yes[Aller gies Verified] Objective: * Vitals:?Ht:6 ft, Wt:245, BMI :33.22, Shoe size:10, BP:138/74mm Hg, BS:not taken, Ht-cm: 182.88 cm, Wt-k.13 kg. * ???Past Orders: ???Lab:HEMOGLOBIN A1C (GLYCO HEMOGLOBIN) (Order Date - 10/12/2023) (Collection Date & Time - 10/12/2023 02:14 PM) ? Value Reference Range ?HEMOGLOBIN A1C (HH) 6.3 * Examination: ???Neurological: ?SENSORY:? Neurological exam demonstrates, reduced light touch sensation, reduced sharp/dull pin prick discrimination , B/L, 5.07 monofilament test performed at plantar aspects of 5 varied sites per foot shows sensation, reduced , B/L.?Nails: ?NAILS are:?Elongated, overgrown, dystrophic, lytic, greater than 3mm thick, discolored and friable with crumbly malodorous subungual debris , 1-5 B/L.?Dermatologic: ?SKIN FINDINGS:?Skin exam reveals Keratotic lesion(s) located at , SUB MTH (s), 5, B/L, Plantar, Heel(s) , B/L.? Assessment: * Assessment: 1.?Type 2 diabetes mellitus with diabetic polyneuropathy - E11.42 (Primary)???2.?Tinea unguium - B35.1??? Plan: * Treatment: * Procedures:?Debride Nail 6-10:?Nail debridement?Performance of this nail treatment by a nonprofessional would put this patients foot and overall health at risk. Therefore, debridement to affected nail(s), as described in exam, was performed extensively to reduce/remove overall nail length, girth, thickness, subungual debris, and necrotic tissue, by manual and/or electrical means through the use of a nail nipper and/or dremel-type back grinder, to a more viable healthy nail plate or bed tissue 6-10 nails in total. Silver nitrate was used for any petechial bleeding as necessary. Definitive antifungal treatment options, both pharmaceutical and surgical, have been reviewed and discussed with the patient. The patient solely prefers the use of intermittent/as needed professional debridement services for their nail condition and understands the need for additional periodic treatments to maintain effectiveness in symptomatic relief - 14956.?Keratoma Treatment:?Parring or Cutting of Benign Hyperkeratotic Lesion(s)?(-56) 2-4 Lesions - The Benign hyperkeratotic lesions, ( 4) in total, locations as stated and described in exam, were pared, and/or cut utilizing a sterile 15 blade, tissue nippers, and/or power dremel instrumentation - 01117.? * Procedure Codes:?22403 DEBRI DE NAIL, 6 OR MORE, Modifiers: XS 42753 TRIM SKIN LESIONS, 2 TO 4, Modifiers: XS * Follow Up:?prn * Images: * Sign off status: Completed true * Provider:?Crow [place] DPM Date:?2023 Generated for Kirill kaplan/Lily/Yousif on:?04/25/2024 08:01 AM EST History and Physical Notes * HPI (History of Present Illness) Category Sub-Category Detail Notes Category Not es Toe pain Treatments: Rx shoes, states delivery pending At Risk footcare Pt States Last PCP Visit: Date: 4 Examination Category Sub-Category Detail Notes Category Not es Neurological SENSORY: Neurological exa m demonstrates, reduced light touch sensation, reduced sharp/dull pin prick discrimination , B/L, 5.07 monofilament test performed at plantar aspects of 5 varied sites per foot shows sensation, reduced , B/L Dermatologic SKIN FINDINGS: Skin exam reveal s Keratotic lesion(s) located at , SUB MTH (s), 5, B/L, Plantar, Heel(s) , B/L Nails NAILS are: Elongated, overg rown, dystrophic, lytic, greater than 3mm thick, discolored and friable with crumbly malodorous subungual debris , 1-5 B/L
--- OUTSIDE RECORDS SUMMARY | 2024-04-25 08:02 | XMS_ITS | Patient Health Record ---
Author Organization [facility] Address [address] [place] [address] Care Team Providers Care Die Sizer Name Role Phone PAOLO TERRELL Primary Care Provider Raji Salas Unavailable [phone] ALLERGIES Allergen (clinical drug ingredient) Drug/Non Drug Allergy documented on EMR Reaction Allergy Type Onset Date Status Aloe Aftersun Unknown Drug Allergy Act alejandro REASON FOR REFERRAL No Information MEDICATIONS Medication SIG (Take, Route, Frequency, Duration) Notes Start Date End Date Status Lasix 40 MG 1 tablet Orally Once a day for 30 day(s) Active Vitamin D (Ergocalciferol) 06304 UNIT as directed Oral twice a week Active Meloxicam 15 MG 1 tablet Orally Once a day for 30 day(s) Active Omeprazole 20 MG 1 capsule Orally twi ce a day Active Aspir-81 81 MG 1 tablet Orally Once a day for 30 day(s) Active Gabapentin 300 MG 1 capsule Orally Thr ee times a day Active metFORMIN HCl 500 MG 1 tablet with a dell l Orally Once a day for 30 day(s) Active Stiolto Respimat 2.5-2.5 MCG/ACT 2 puffs Inhalation Once a day Active Combivent Respimat 20-100 MCG/ACT 1 puff Inhalation prn Active dilTIAZem HCl ER Coated Beads 120 MG TAKE 1 CAPSULE BY MOUTH EVERY DAY Oral for 30 Active IMMUNIZATIONS Vaccine Route Administration Date Status Comme nts Influenza Unknown 01/05/2018 Administered SOCIAL HISTORY Tobacco Use: Social History Observation Description Date Details (start date - stop date) Former Smoker NA - NA Sex Assigned At : Social History Observation Description Sex Assigned At Unknown Tobacco Use/Smoking Question Answer Notes Patient is a former smoker How long has it been since you last smoked? 5-10 years Alcohol Screen Question Answer Notes Did you have a drink contain ing alcohol in the past year? Yes How often did you have a dri nk containing alcohol in the past year? Monthly or less (1 point) How many drinks did you have on a typical day when you were drinking in the past year? 1 or 2 drinks (0 point) How often did you have 6 or more drinks on one occasion in the past year? Never (0 point) Points 1 Interpretation Negative PROBLEMS Problem Type ICD Code Onset Dates Problem Status W/U Status Risk SNOMED Code Notes Problem Encounter for screening for malignant neoplasm of colon (Z12.11) Active confirmed 250447669 Problem History of adenomatous polyp of colon (Z86.010) Active confirmed 661153254 Problem Iron deficiency (E61.1) Active confirmed 77865195 Problem Diverticulosis of large intestine without hemorrhage (K57.30) Active confirmed Diverticular disease of colon (562666702) Problem Preprocedural examination (Z01.818) Active confirmed 307717941554825 Problem Gastroesophageal reflux disease, esophagitis presence not specified (K21.9) Active confirmed 382627456 PLAN OF TREATMENT Pending Test Test Name Order Date GI BIOPSY 10/22/2018 Future Test Test Name Order Date UPPER GI ENDOSCOPY 07/15/2018 COLONOSCOPY 07/15/2018 Insurance Providers Payer Name Payer Address Payer Phone Subscriber Number Group Number Insured Name Patient Relationship to Insured Coverage Start Date Coverage End Date MEDICARE OF [place] [address] [place] [address] [id number] IRENE OSEGUERA Self - patient is the insured [employer] CLAIMS [address] [place] [address] [phone] [id number] IRENE OSEGUERA Self - patient is the insured MEDICAL (GENERAL) HISTORY Medical History History ICD Code Denies UT,CVA,renal disease NIDDM COPD Colonoscopy in 2006 with mul tiple tubular adenoms removed, 1 with moderate dysplasia GERD--UGI in 2016 with a hiatal hernia Neuropathy in arms and legs HTN Edema Surgical History Surgery Date(Month/Year) Right inguinal hernia repair x 2 Heel spur
--- OUTSIDE RECORDS SUMMARY | 2024-04-25 08:02 | XMS_ITS | Patient Health Record ---
Author Organization [facility] marguerite Garroch[facility] Address [address] [address] Care Team Providers Care Grommet Man Name Role Phone Geovani Sears Primary Care Provider Unav ailable Crow oMrris Unavailable [phone] Allergies No Known Allergies Results Component Value Reference Range Notes HEMOGLOBIN A1C (GLYCOHEMOGLO BIN) Reviewed date:11/03/2023 02:14:47 PM Interpretation: Performing Lab: Notes/Report: HEMOGLOBIN A1C (HH) 6.3 Reason For Referral No Information Medications Medication SIG (Take, Route, Frequency, Duration) Notes Start Date End Date Status Tacrolimus 0.1 % External for 90 Active Eucrisa 2 % External for 30 Ac tive dilTIAZem HCl ER Coated Beads 240 MG Oral for 90 Active Betamethasone Dipropionate Aug 0.05 % External for 30 A ctive Hydrocortisone Activ e Combivent Active Fluocinonide Active Clotrimazole-Betamethason e Active Ciclopirox Olamine A ctive Mucinex Active Triamcinolone Acet & Anesth Active metFORMIN HCl 500 MG Orally Once a day Active Amoxicillin-Pot Clavulanate Active Betamethasone Valerate Active Baby Aspirin 81 mg once a day Active Corlanor 5 MG Oral for 90 Acti ve Vitamin B Complex - as directed Orally Active Ketoconazole Active Vitamin D3 Active Omeprazole 40 MG Orally twice a day Active Combivent Respimat 20-100 MCG/ACT Inhalation for 90 Active Verapamil HCl ER 240 MG Oral for 90 Active Extra Depth Orthopedic Shoes (1 Pair) with Customized Heat Molded Multidensity Innersoles (3 Pair) as directed Dx: NIDDM/Polyneuropathy (E11.42), Hammertoe Foot Deformity (M20.41,M20.42), Preulcerative Skin Lesion(s) (L85.1 11/03/2023 Active DULoxetine HCl 20 MG Oral for 90 Active Vitamin B12 Not-Taki ng Jardiance 10 MG Oral for 90 Ac tive Stiolto Respimat Not -Taking Rosuvastatin Calcium 40 MG Oral for 90 Active Tamsulosin HCl 0.4 MG Oral for 90 Active Vitamin D2 Not-Takin g Gabapentin 300 MG Orally Three times a day Not-Taking Furosemide 40 mg once a day No t-Taking Trelegy Ellipta 100-62.5-25 MCG/ACT Inhalation for 90 Act alejandro Meloxicam 15 MG Orally Once a day Not-Taking Finasteride 5 MG Oral for 90 A ctive Lipoic Acid Not-Taki ng Immunizations Vaccine Route Administration Date Status Comme nts Influenza Unknown 01/11/2018 Administered Influenza Unknown 10/31/2022 Administered Social History Alcohol Screen Question Answer Notes Did you have a drink containing alcohol in the p ast year? No Points 0 Interpretation Negative Tobacco use other than smoking: Question Answer Notes Are you an other tobacco user? No Problems Problem Type SNOMED Code ICD Code Onset Dates Problem Status W/U Status Risk Notes Problem Acquired hammer toe of right foot (3069221426510212 ) Other hammer toe(s) (acquired), right foot (M20.41) Active confirmed Problem Acquired hammer toe of left foot (4977759562215782 ) Other hammer toe(s) (acquired), left foot (M20.42) Active confirmed Problem Polyneuropathy due to type 2 diabetes mellitus (753449784) Type 2 diabetes mellitus with diabetic polyneuropathy (E11.42) Active confirmed Vital Signs Blood pressure diastolic 74 mm Hg 02/02/2024 Height 6 ft in 02/02/2024 Blood pressure systolic 138 mm Hg 02/02/2024 Weight 245 lbs 02/02/2024 BMI 33.22 kg/m2 02/02/2024 Procedures Procedure Date Ordered Date Performed Result Body Sit e 11666-EGSZZLF NAIL, 6 OR MORE 11/03/2023 N/A 39474-Xpwdnppi Plate 11/03/2023 N/A 42572-OFAW SKIN LESIONS, 2 TO 4 11/03/2023 N/A 48910-MROSAFC NAIL, 6 OR MORE 02/02/2024 N/A 76735-OSTM SKIN LESIONS, 2 TO 4 02/02/2024 N/A Encounters Encounter Location Date Provider Diagnosis [address] [address] 11/03/2023 Crow Morris Type 2 diabetes mellitus with diabetic polyneuropathy E11.42 ; Tinea unguium B35.1 ; Ingrown nail L60.0 ; Other hammer toe(s) (acquired), right foot M20.41 and Other hammer toe(s) (acquired), left foot M20.[address] [address] 02/02/2024 Crow Morris Type 2 diabetes mellitus with diabetic polyneuropathy E11.42 and Tinea unguium B35.[address] [address] 07/23/2023 Crow Garciaier Assessments Encounter Date Diagnosis (ICD Code) Assessment Notes Treatment Notes Treatment Clinical Notes Section Notes 11/03/2023 Type 2 diabetes mellitus with diabetic polyneuropathy (ICD-10 - E11.42) 11/03/2023 Tinea unguium (ICD-10 - B35.1) 02/02/2024 Type 2 diabetes mellitus with diabetic polyneuropathy (ICD-10 - E11.42) 02/02/2024 Tinea unguium (ICD-10 - B35.1) 11/03/2023 Ingrown nail (ICD-10 - L60.0) 11/03/2023 Other hammer toe(s) (acquired), right foot (ICD-10 - M20.41) Patient Educated with: DIABETIC FOOT CARE INSTRUCTIONS. pdf (DIABETIC FOOT CARE INSTRUCTIONS. pdf) 11/03/2023 Other hammer toe(s) (acquired), left foot (ICD-10 - M20.42) 02/02/2024 Other Plan Of Treatment Pending Test Test Name Order Date 31759-FYNXMFT NAIL, 6 OR MORE 11/03/2023 39871-FBKSPAD NAIL, 6 OR MORE 02/02/2024 76066-Ubeusepf Plate 11/03/2023 57675- Debride <25 sq cm 07/23/2018 20723 I&D ABSCESS- SIMPLE,SINGLE 019 46339-HHSY SKIN LESIONS, 2 TO 4 11/03/19 73942-ZMFQ SKIN LESIONS, 2 TO 4 02/02/20 Next Appt Details Provider Name:Crow Morris , 05/03/2024 10:30:00 AM, [address] [place], [address], Insurance Providers Payer Name Payer Address Payer Phone Subscriber Number Group Number Insured Name Patient Relationship to Insured Coverage Start Date Coverage End Date Medicare National Govt [employer] [address] [place] [address] [id number] Cody Rebollar Self - patient is the insured 7 [employer] [address] [place] [address] [id number] Cody Rebollar Self - patient is the insured Medical (General) History Medical History History ICD Code Diabetes mellitus Reflux ( GERD) Arthritis Back,Hip,and Knee pain Broken bones Hiatal hernia Lung disease Neuropathy Mumps Measles Chicken pox Hyperglycemia Vericose Veins CAD (Cholesterol) Diverticulosis Heart disease Hypertension nerve disorder Poor circulation Psoriasis stints elevated heart rate Surgical History Surgery Date(Month/Year) hernia 1991 heel spur 1997 Hernia Repair 2000 Hospitalization History Reason Date(Month/Year) [facility] [place]- Throwing up blood 04/2023
--- OUTSIDE RECORDS SUMMARY | 2024-04-25 08:02 | XMS_ITS ---
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 Name Role Phone Geovani Sears Primary Care Provider Unav ailable Crow Morris Unavailable [phone] Allergies No Known Allergies REASON FOR VISIT At Risk Footcare, Ingrown Nail, Toe Irritation Medications Medication SIG (Take, Route, Frequency, Duration) Notes Start Date End Date Status Meloxicam 15 MG Orally Once a day Not-Taking Lipoic Acid Not-Taki ng Vitamin D2 Not-Takin g Vitamin B12 Not-Taki ng Stiolto Respimat Not -Taking Ketoconazole Active Omeprazole 40 MG Orally twice a day Active Mucinex Active metFORMIN HCl 500 MG Orally Once a day Active Gabapentin 300 MG Orally Three times a day Active Baby Aspirin 81 mg once a day Active Furosemide 40 mg once a day Ac tive Combivent Active Clotrimazole-Betamethason e Active Betamethasone Valerate Active Amoxicillin-Pot Clavulanate Active dilTIAZem HCl ER Coated Beads 240 MG Oral for 90 Active Betamethasone Dipropionate Aug 0.05 % External for 30 A ctive Tacrolimus 0.1 % External for 90 Active Eucrisa 2 % External for 30 Ac tive Rosuvastatin Calcium 40 MG Oral for 90 Active Tamsulosin HCl 0.4 MG Oral for 90 Active DULoxetine HCl 20 MG Oral for 90 Active Jardiance 10 MG Oral for 90 Ac tive Trelegy Ellipta 100-62.5-25 MCG/ACT Inhalation for 90 Act alejandro Extra Depth Orthopedic Shoes (1 Pair) with Customized Heat Molded Multidensity Innersoles (3 Pair) as directed Dx: NIDDM/Polyneuropathy (E11.42), Hammertoe Foot Deformity (M20.41,M20.42), Preulcerative Skin Lesion(s) (L85.1 11/03/2023 Active Finasteride 5 MG Oral for 90 A ctive Corlanor 5 MG Oral for 90 Acti ve Combivent Respimat 20-100 MCG/ACT Inhalation for 90 Active Verapamil HCl ER 240 MG Oral for 90 Active Vitamin B Complex - as directed Orally Active Vitamin D3 Active Ciclopirox Olamine A ctive Triamcinolone Acet & Anesth Active Hydrocortisone Activ e Fluocinonide Active Social History Tobacco Use: Social History Observation Description Date Details (start date - stop date) Never Smoker NA - NA Alcohol Screen Question Answer Notes Did you have a drink containing alcohol in the p ast year? No Points 0 Interpretation Negative Tobacco use other than smoking: Question Answer Notes Are you an other tobacco user? No Tobacco Control (Standard) Question Answer Notes Tobacco use: Nonsmoker Problems Problem Type SNOMED Code ICD Code Onset Dates Problem Status W/U Status Risk Notes Problem Acquired hammer toe of right foot (7499090119874 105) Other hammer toe(s) (acquired), right foot (M20.41) Active confirmed Problem Acquired hammer toe of left foot (5952553994528 103) Other hammer toe(s) (acquired), left foot (M20.42) Active confirmed Vital Signs Height 6 ft in 11/03/2023 Weight 245 lbs 11/03/2023 BMI 33.22 kg/m2 11/03/2023 Blood pressure systolic 138 mm Hg 11/03/19 24 Blood pressure diastolic 74 mm Hg 024 Procedures Procedure Date Ordered Date Performed Result Body Sit e 51587-YJVQKYP NAIL, 6 OR MORE 11/03/2023 N/A 68249-Tivuocbf Plate 11/03/2023 N/A 22703-TMUL SKIN LESIONS, 2 TO 4 11/03/2023 N/A Encounters Encounter Location Date Provider Diagnosis [facility] [place] [address] [place] [address] 11/03/2023 Crow Morris Type 2 diabetes mellitus with diabetic polyneuropathy E11.42 ; Tinea unguium B35.1 ; Ingrown nail L60.0 ; Other hammer toe(s) (acquired), right foot M20.41 and Other hammer toe(s) (acquired), left foot M20.42 Assessments Encounter Date Diagnosis (ICD Code) Assessment Notes Treatment Notes Treatment Clinical Notes Section Notes 11/03/2023 Type 2 diabetes mellitus with diabetic polyneuropathy (ICD-10 - E11.42) 11/03/2023 Tinea unguium (ICD-10 - B35.1) 11/03/2023 Ingrown nail (ICD-10 - L60.0) 11/03/2023 Other hammer toe(s) (acquired), right foot (ICD-10 - M20.41) Patient Educated with: DIABETIC FOOT CARE INSTRUCTIONS. pdf (DIABETIC FOOT CARE INSTRUCTIONS. pdf) 11/03/2023 Other hammer toe(s) (acquired), left foot (ICD-10 - M20.42) Plan Of Treatment Medication Medication Name Sig Start Date Stop Date Notes Extra Depth Orthopedic Shoes (1 Pair) with Customized Heat Molded Multidensity Innersoles (3 Pair) as directed Dx: NIDDM/Polyneuropathy (E11.42), Hammertoe Foot Deformity (M20.41,M20.42), Preulcerative Skin Lesion(s) (L85.1 11/03/2023 Treatment Notes Assessment Notes Other hammer toe(s) (acquired), right fo ot Patient Educated with: DIABETIC FOOT CARE INSTRUCTIONS.pdf (DIABETIC FOOT CARE INSTRUCTIONS.pdf) Pending Test Test Name Order Date [id number] NAIL, 6 OR MORE 11/03/2023 33195-Ycxybqah Plate 11/03/2023 06674-HBJG SKIN LESIONS, 2 TO 4 11/03/19 24 Next Appt Details Follow Up: prn, Reason: Provider Name:Crow Morris , 05/03/2024 10:30:00 AM, [address] [facility], [place], [address], Procedure Notes * Category Sub-Category Detail Notes Nail Avulsion Procedure A fine sterile e levator was placed between the eponychium, nail fold, and nail plate to separate the structures. A sterile nail splitter, and/or sterile 316 blade, was then used to longitudinally section the nail along its entire length through the eponychium to the area under the nail fold. The offending portion of nail was from the nail bed with a rolling action and then removed with a hemostat. No underlying bone was identified. There was minimal bleeding as hemostasis was achieved through the temporary use of either a digital tourniquet or the aforementioned local with epinephrine. A bacitracin sterile dressing was applied. Local wound aftercare instructions were discussed and dispensed. The patient was informed of both conservative and future surgical procedures to prevent recurrence. Tylenol or Motrin was recommended for pain or discomfort (11187) , DIABETES: Pt was advised as to the risk of delayed or nonhealing due to diabetes. Pt is to call the office with any questions, concerns, or complications Anesthesia was deferred - NEURO SURAJ: patient has medically documented neuropathic condition affecting sensation Location Lateral nail border , T5 Debride Nail 6-10 Nail debridement Performance o f this nail treatment by a nonprofessional would put this patients foot and overall health at risk. Therefore, nail debridement was performed extensively to reduce/remove overall nail length, girth, thickness, subungual debris, and necrotic tissue, by manual and/or electrical means through the use of a nail nipper and/or dremel-type grinder operator tool, to a more viable healthy nail plate or bed tissue 6-10. Silver nitrate used for any petechial bleeding as necessary. Definitive antifungal treatment options have been reviewed and discussed with the patient. The patient chooses, no pharmaceutical tx - 33747 Keratoma Treatment Parring or Cutting o f Benign Hyperkeratotic Lesion(s) 57527 ( 2-4 Lesions ) - The Benign hyperkeratotic lesions, as described above were pared, and/or cut utilizing a sterile 15 blade, tissue nippers, and/or dremel - 66092 Progress Notes * Cody OSEGUERA WDOB: [birth year] (73 yo M)Acc No.[id number]:11/03/2023 Progress Notes Patient:?Cody OSEGUERA Provider:?Crow Morris DPM :1950???Age:73 Y???Sex:Male Con e:11/03/2023 Address:[address] [place], [place] [id number] Pcp:LOU Sun Subjective: * Chief Complaints: * ???At Risk FootcareIngrown N ailToe Irritation * HPI: ???At Risk footcare:?Pt States Last PCP Visit:?Date?10/12/2023 ???Toe pain:?Location:?B/L feet.?Duration:?several years.?Course:?worse.?Aggravated by:?shoes, any pressure.?Treatments:?change in shoes.? * ROS:?General/Constitutional:?Nausea?denies.?Vomiting?denies.?Hunger Thirst?denies.?Loss appetite?denies.?Chills?denies.?Fatigue?admits.?Fever?denies.?Night Sweats?denies.?Unexplained weight loss?denies.?Unexplained weight gain?denies.?HEENTM:?Dentures?denies.?Dizziness?denies.?Glasses/contacts?denies.?Retinopathy?den ies.?Blurred/double vision?denies.?TMJ?denies.?Discharge/drainage?denies.?Implants?denies.?Sore throat?denies.?Dental implants?denies.?Hard of hearing ?denies.?Difficulty chewing/swallowing/speaking?denies.?Nose bleeds?denies.?Sore mouth?denies.?Respiratory:?On O xygen?denies.?Pneumonia/pleurisy?admits.?Bronchitis?admits.?Emphysema?denies.?Co ughing?admits.?Cough blood?denies.?Shortness of breath?admits.?Wheezing?denies.?Cardiovascular:?Pacemaker?denies.?MVP?denies.?WPW?denies.?CHF?denies.?Heart attack?denies.?Septal defect?denies.?Rapid beat?admits.?Chest pain ?denies.?Atrial Fib.?denies.?Murmur/Palpitations?denies.?Gastrointestinal:?Hemorrhoids?denies.?Stomach/Abdominal pain?denies.?Dark blood stool?denies.?Irritable bowel ?denies.?Constipation?denies.?Diarrhea?denies.?Hematology:?Swelling?denies.?Clots?denies.?Varicose Veins?admits.?Bruising?denies.?Bleeding problem?denies.?Genitourinary:?Blood urine?denies.?Frequent/Painfu/urination/bladder control?denies.?Kidney stones?denies.?Infection (UTI)?denies.?Nephropathy?denies.?sex trans dis (STD)?denies.?Prostate?admits.?Musculoskeletal:?Hammertoes?admits.?Bunions?denies.?Back Pain?denies.?Muscle Cramps/ Resting?denies.?Muscle cramps / walking?denies.?Generalized aches and pains?admits.?Weakness?admits.?Integ.:?Mark?denies.?Scars?denies.?Corns/calluses?admits.?Ingrown nails?admits.?Painful nails?admits.?Open Sores?denies.?Rashes?denies.?Neurologic:?Difficulty sleeping?admits.?Brain disorder?denies.?Numbness?admits.?Balance t rouble?denies.?Confusion?denies.?Fainting/blackouts?denies.?Tingling?admits.?Checo mors?denies.? * Medical History:? * Surgical History:?hernia 199 2heel spur 1998Hernia Repair 2000 * Hospitalization/Major Diagno stic Procedure:?[facility] [place]- Throwing up blood 04/2023 * Family History:?Mother: christin dutta, diagnosed with Diabetic - NIDDM, Other malignant neoplasm of unspecified site.?Father: .?Paternal Grand Father: diagnosed with Unspecified cerebral artery occlusion with cerebral infarction.?Maternal Grand Mother: diagnosed with Diabetic - NIDDM.?Siblings: diagnosed with Unspecified essential hypertension.? * Social History:?Tobacco Use:?Tobacco use other than smoking?Are you an other tobacco user??No ?Tobacco Control (Standard)?Tobacco use:?Nonsmoker ???Drugs/Alcohol:?Drugs?Have you used drugs other than those [...] once a day Betamethasone Valerate Clotrimazole-Betamethasone Combivent Furosemide 40 mg once a day Gabapentin 300 MG Capsule Orally Three times a day metFORMIN HCl 500 MG Tablet Orally Once a day Mucinex Omeprazole 40 MG Capsule Delayed Release Orally twice a day Ketoconazole Taking Fluocinonide Taking Hydrocortisone Taking Triamcinolone Acet [...] Betamethasone Valerate Taking Clotrimazole-Betamethasone Taking Combivent Taking Furosemide 40 mg once a day Taking Gabapentin 300 MG Capsule Orally Three times a day Taking metFORMIN HCl 500 MG Tablet Orally Once a day Taking Mucinex Taking Omeprazole 40 MG Capsule Delayed Release Orally twice a day Taking Ketoconazole Not-Taking/PRNLipoic Acid Meloxicam 15 MG Tablet Orally Once a day Stiolto Respimat Vitamin B12 Vitamin D2 Medication List reviewed and reconciled with the patientNot-Taking/PRN Lipoic Acid Not- Taking/PRN Meloxicam 15 MG Tablet Orally Once a day Not-Taking/PRN Stiolto Respimat Not-Taking/PRN Vitamin B12 Not-Taking/PRN Vitamin D2 Medication List reviewed and reconciled with the patient * Allergies:?N.K.D.A.yes[Aller gies Verified] Objective: * Vitals:?Ht: 6 ft, Wt:245, BM I:33.22, Shoe size: 10, BP:138/74mm Hg, BS: not taken, Ht-cm: 182.88 cm, Wt-k.13 kg. * [...] crumbly malodorous subungual debris , 1-5 B/L , Heriberto- horn appearance noted, T5.?Ingrown Nail: ?INSPECTION:?Reveals nail incurvation, dull pain on palpation due to neuropathy, groove hypertrophy , Lateral nail border , T5.?Dermatologic: ?SKIN FINDINGS:?Skin exam reveals Keratotic lesion(s) located at , Heel(s) , B/L.?Orthopedic: ?MUSCLE STRENGTH:?5/5 all groups in a symmetrical fashion, B/L.?FOOT MORPHOLOGY:?(-) Charcot collapse/destruction noted at MTJ.?DIGITAL DEFORMITIES:?Digital contracture, PIPJ, 2-5 B/L, incompl-reducible to push-up test, no over, nor underlapping,?there is?evidence of shoe producing skin irritation.?FOOTWEAR:?worn, non-supportive, shoe gear properties exacerbate patient's foot/toe deformity.?Vascular: ?DP PULSES (B):?0/4 , LEFT , 1/4 , RIGHT.?PT PULSES (B):?0/4, B/L.?CAPILLARY FILL TIME:?delayed, all digits, B/L.?TROPHIC CONDITION-TEXTURE/ELASTICITY/TURGOR/HAIR GROWTH (B):?decreased, B/L.?TEMPERTURE GRADIENT (C):?decreased, cool to cool, proximal to distal, B/L.?PIGMENTATION:?mottled, B/L.?EDEMA (C):?1/4 , non-pitting , without aching pain , Leg(s) , Ankle(s) , B/L.?CLAUDICATION (C):?denies, B/L.?REST PAIN:?denies, B/L.?VARICOSITIES:?present, moderate, nonpainful, B/L.?Ophthalmology Referral: ?DIABETES EYE EXAM?General Examination: ?GENERAL APPEARANCE:?Reveals a pleasant, alert, well nourished, well- developed, well hydrated individual, who demonstrates proper attention to hygiene/body habitus, and is in no acute distress, Pt serves as own historian for office visit today.?ORIENTED:?person, place, and time.?FOOT EXAM:?Footwear Evaluation? Assessment: * Assessment: 1.?Type 2 diabetes mellitus with diabetic polyneuropathy - E11.42 (Primary)???2.?Tinea unguium - B35.1???3.?Ingrown nail - L60.0???Specify :Lateral nail border , T5???4.?Other hammer toe(s) (acquired), right foot - M20.41???Specify :Chronic problem, Worse (4),Rx Management (4)???5.?Other hammer toe(s) (acquired), left foot - M20.42???Specify :Chronic problem, Worse (4),Rx Management (4)??? Plan: * Treatment: 2.?Ingrown nail?Procedure: 83984-Kkqfegum Plate 3.?Other hammer toe(s) (acqu ired), right foot? Start Extra Depth Orthopedic Shoes (1 Pair) with Customized Heat Molded Multidensity Innersoles (3 Pair), as directed, Dx: NIDDM/Polyneuropathy (E11.42), Hammertoe Foot Deformity (M20.41,M20.42), Preulcerative Skin Lesion(s) (L85.1, 1, Refills 0.?? Notes: Patient Educated with: DIABETIC FOOT CARE INSTRUCTIONS.pdf (DIABETIC FOOT CARE INSTRUCTIONS.pdf)?? * Procedures:?Debride Nail 6-10:?Nail debridement?Performance of this nail treatment by a nonprofessional would put this patients foot and overall health at risk. Therefore, nail debridement was performed extensively to reduce/remove overall nail length, girth, thickness, subungual debris, and necrotic tissue, by manual and/or electrical means through the use of a nail nipper and/or dremel-type grinder operator tool, to a more viable healthy nail plate or bed tissue 6-10. Silver nitrate used for any petechial bleeding as necessary. Definitive antifungal treatment options have been reviewed and discussed with the patient. The patient chooses, no pharmaceutical tx - 38204.?Keratoma Treatment:?Parring or Cutting of Benign Hyperkeratotic Lesion(s)?02780 ( 2-4 Lesions ) - The Benign hyperkeratotic lesions, as described above were pared, and/or cut utilizing a sterile 15 blade, tissue nippers, and/or dremel - 55309.?Nail Avulsion:?Location?Lateral nail border?,?T5.?Anesthesia?was deferred - NEUROPATHY: patient has medically documented neuropathic condition affecting sensation.?Procedure?A fine sterile elevator was placed between the eponychium, nail fold, and nail plate to separate the structures. A sterile nail splitter, and/or sterile 316 blade, was then used to longitudinally section the nail along its entire length through the eponychium to the area under the nail fold. The offending portion of nail was from the nail bed with a rolling action and then removed with a hemostat. No underlying bone was identified. There was minimal bleeding as hemostasis was achieved through the temporary use of either a digital tourniquet or the aforementioned local with epinephrine. A bacitracin sterile dressing was applied. Local wound aftercare instructions were discussed and dispensed. The patient was informed of both conservative and future surgical procedures to prevent recurrence. Tylenol or Motrin was recommended for pain or discomfort (86091) , DIABETES: Pt was advised as to the risk of delayed or nonhealing due to diabetes. Pt is to call the office with any questions, concerns, or complications.? * Procedure Codes:?64902 DEBRI DE NAIL, 6 OR MORE, Modifiers: XS 34298 Avulsion Plate, Modifiers: XS , [id number] TRIM SKIN LESIONS, 2 TO 4, Modifiers: XS * Preventive Medicine:? ??Counseling:?Discussion:?-04: Office or other outpatient visit for the evaluation and management of a new patient, which required a medically appropriate history and/or examination and MODERATE level of DECISION MAKING for: 1 OR MORE CHRONIC PROBLEM(S) THATS WORSENING, 2 STABLE CHRONIC PROBLEMS, A NEWLY DIAGNOSED PROBLEM WITH UNCERTAIN PROGNOSIS, AN ACUTE COMPLICATED INJURY WITH MULTIPLE TREATMENT OPTIONS, OR AN ACUTE PROBLEM WITH ACCOMPANYING SYSTEMIC SYMPTOMS, THAT POSE(S) A MODERATE RISK OF MORBIDITY. THIS CONDITION MAY ALSO INCLUDE RX DRUG MANAGEMENT, OR A DECISON FOR MINOR SURGERY. The visit on the day of the encounter encompassed interpreting the data and educating the patient as to the nature of their condition, treatment options available according to their individual PMH, meds, allergies, and overall health/living conditions, as well as any potential risks or complications that may occur from a failure to adhere to, and participate in, the recommended course of therapy. The discussion included a complete verbal, and/or written explanation of the examination results, any x-rays taken, the proposed diagnosis, and outline of the treatment plan. A schedule for future care needs was also explained. The patient verbalized an understanding of the instructions at this time and agreed to be an active participant in their treatment. If the patient should think of any questions or concerns after the visit, I have encouraged the patient to call the office.?Digital Surgery:?Digital surgery was discussed with the patient, We elected to try conservative treatment at the present time, due to the patients medical history and increased asssociated post-operative risks.?Digital Treatment:?HT- I explained to the patient the possible etiologies of Hammertoes, including genetics/foot type/shoegear/activity level/exercise routine and the risks/benefits of all the different treatment options for their pain including: No treatment at all, Rest, Ice, New/supportive/wider/deeper Shoegear, Digital Padding/Strapping/Taping/Bracing/Gel protective sleeves, Foot/Ankle AFO Bracing, Stretching exercises, Deep Tissue Massage, Arch support/shoe inserts with splay metatarsal padding, and Custom orthoses. I insisted that any digital devices be removed daily and not worn overnight for safety. The patient is to carefully examine the toes daily for any skin irritation while using any splinting or padding device. The advantages and disadvantages of each option were discussed and the patients questions re: shoegear, padding, custom vs prefabricated inserts, activity level, and consistency in home treatment regimens for optimal success were answered to their verbally confirmed satisfaction.?Shoe Gear Counseling:?SHOE Rx - The patient was counseled in great detail on their muscoloskeletal foot and toe deformities which coincided with the dermatological presentations visualized on exam. We discussed how their deformities put the integrity of their feet at risk for potential pedal complications which makes the accomidative diabetic shoes and cutomizable inserts medically necessary. We discussed the different shoe and insert treatment types and options, as well as the important advantages for adhering to regularly wearing these accomidative devices daily. The patient was made aware of the fact that a failure to abide by these recommedations may be deleterious to their foot health as they are able to prevent many pedal complications such as skin irritation, skin ulceration, infection, and even loss of toe/foot/leg/or life. Time was also spent with the patient dispensing and discussing proper diabetic footcare techniques including daily skin moisturization, daily foot inspection for any interruption in skin integrity including open lesions, or sign of infection such as redness/malodor/drainage/swelling. Also discussed and recommended were procedures regarding daily shoe inspection for the presence of internal foreign bodies as well as any visualized irregular shoe or insert wear. Patient questions re: shoes, inserts, and self foot inspections were answered to their satisfaction as the patient verbally confirmed a full understanding of the above information. A Rx for Extra Depth Orthopedic Shoes with 3 pair of custom heat-molded inserts was dispensed.? ??Screening/Special Tests:?Fall Risk?Assessment:?Performed ?Plan of Care:?Documented ?Screening:?No falls in the past year Despite neuropathy ?FALLS: Screening for Future Fall Risk?Have you had any falls with injury in the past year??No Despite neuropathy * Follow Up:?prn * Images: * Sign off status: Completed true * Provider:?Crow Morris DPM Date:?2023 Generated for Kirill kaplan/Lily/Yousif on:?04/25/2024 08:02 AM EST History and Physical Notes * HPI (History of Present Illness) Category Sub-Category Detail Notes Category Not es Toe pain Location: B/L feet Duration: several years Course: worse Aggravated by: shoes, any pressure Treatments: change in shoes At Risk footcare Pt States Last PCP Visit: Date: 4 Examination Category Sub-Category Detail Notes Category Not es Ingrown Nail INSPECTION: Reveals nail inc urvation, dull pain on palpation due to neuropathy, groove hypertrophy , Lateral nail border , T5 Neurological SENSORY: Neurological exa m demonstrates, reduced light touch sensation, reduced sharp/dull pin prick discrimination , B/L, 5.07 monofilament test performed at plantar aspects of 5 varied sites per foot shows sensation, reduced , B/L Dermatologic SKIN FINDINGS: Skin exam reveal s Keratotic lesion(s) located at , Heel(s) , B/L Orthopedic FOOT MORPHOLOGY: (-) Charcot col lapse/destruction noted at MTJ FOOTWEAR: worn, non-supportive , shoe gear properties exacerbate patient's foot/toe deformity DIGITAL DEFORMITIES: Digital contracture , PIPJ, 2-5 B/L, incompl-reducible to push-up test, no over, nor underlapping, there is evidence of shoe producing skin irritation MUSCLE STRENGTH: 5/5 all groups in a symmetrical fashion, B/L General Examination GENERAL APPEARANCE: Reveals a pleasant, alert, well nourished, well-developed, well hydrated individual, who demonstrates proper attention to hygiene/body habitus, and is in no acute distress, Pt serves as own historian for office visit today FOOT EXAM: Lower Extremity Neurological Exa m performed:: Yes Visual exam of foot performed:: Yes Date: 11/03/2023 ORIENTED: person, place, and t brandon Footwear Evaluation Footwear Evaluation performe d:: Yes Ophthalmology Referral DIABETES EYE EXAM Procedure Perform ed:: Yes ?Date of Exam Performed: 06/17/2023 Diabetic Retinopathy Screening:: Yes Findings of Diabetic Eye Exam:: no retin opathy Vascular DP PULSES (B): 0/4 , LEFT , 1/4 , RIGHT PT PULSES (B): 0/4, B/L CAPILLARY FILL TIME: delayed, all digits , B/L TEMPERTURE GRADIENT (C): decreased, cool to cool, proximal to distal, B/L TROPHIC CONDITION-TEXTURE/ELASTICITY/TURGOR/HAIR GROWTH (B): decreased, B/L EDEMA (C): 1/4 , non-pitting , without aching pain , Leg(s) , Ankle(s) , B/L VARICOSITIES: present, moderate, n onpainful, B/L CLAUDICATION (C): denies, B/L REST PAIN: denies, B/L PIGMENTATION: mottled, B/L Nails NAILS are: Elongated, overg rown, dystrophic, lytic, greater than 3mm thick, discolored and friable with crumbly malodorous subungual debris , 1-5 B/L , Heriberto-horn appearance noted, T5
--- NOTE | 2024-04-25 08:12 | A.OFFVIS_ITS ---
Intake Visit Reasons: 4m follow up Intake Note: Patient presents today for follow up on: BPH Urology Medication: Tamsulosin and Finasteride Antibiotic Allergy: none Blood thinner: Aspirin PVR: 45ml's Boilermaker'S Assistant Required: No Accompanied by: Self / Same As Patient Allergies No Known Allergies Allergy (Verified 04/25/24 08:15) Medication List - Last Reconciled 04/25/24 by Gordy Hedrick MD aspirin (Adult Aspirin Regimen) 81 mg PO DAILY betamethasone, augmented 0.05 % 1 appl topical BID nmwvflasda-fvwnbzjd-smfloszdev 160-9-4.8 mcg/actuation (Breztri Aerosphere) 2 inhalations inhalation BID cholecalciferol (vitamin D3) 50 mcg PO DAILY duloxetine 20 mg PO DAILY empagliflozin (Jardiance) 10 mg PO DAILY finasteride (Proscar) 5 mg PO DAILY 90 days furosemide (Lasix) 40 mg PO DAILY ipratropium-albuterol 20-100 mcg/actuation (Combivent Respimat) 1 puff inhalation Q6H PRN ivabradine (Corlanor) 5 mg PO DAILY 90 days meloxicam 15 mg PO DAILY PRN metformin 1,000 mg PO BID 90 days omeprazole 40 mg PO DAILY rosuvastatin 40 mg PO DAILY sulfamethoxazole-trimethoprim 800-160 mg (Bactrim DS) 1 tab PO BID tacrolimus 0.1% topical tamsulosin (Flomax) 0.4 mg PO BID verapamil ER 240 mg PO DAILY vitamin B complex (B Complex-Vitamin B12 tablet) 1 tab PO DAILY HPI Comments Details: 04/25/24--Cody is a 74-year-old gentleman who was initially evaluated due to hematuria. Workup included CT scan and office cystoscopy which noted an obstructive median lobe. The patient is prescribed tamsulosin and finasteride. He complains of having burning sensation when urinating for the past 5 days. Urinalysis leukocytes negative blood 1+ leukocytes negative, glucose 2+. We will send surveillance urine culture. The patient is also concerned that he has continued hesitancy. He is interested in proceeding with surgical intervention for bladder outlet obstruction from enlarged prostate. Bladder scan PVR 45 mL. PSA-07/09/2023--1.23 ng/mL. Continue PSA screening. Discussed TURP versus GreenLight laser. 12/24/23--Cody is a 73-year-old gentleman who was initially evaluated due to hematuria. Workup included CT scan and office cystoscopy which noted an obstructive median lobe. The patient is prescribed tamsulosin and finasteride was added in May of this year. He states that he has not noticed a major difference in his voiding. He is bothered mainly by getting up at night about every 2 hours. Lasix 40 mg is on his medication list but the patient states he has not been taking this for several months. He has significant coronary artery disease and peripheral vascular disease and would need cardiac clearance prior to any surgical procedures. Follow-up in 3 months. 06/25/2023--Cody was seen as a new patient evaluation 05/11/2023, referred due to hematuria. He was started on tamsulosin 0.4 mg daily for obstructive voiding sy mptoms. He saw blood in his urine in March, history of nicotine use. He states he has not seen any further episodes of blood in the urine. He presents for office cystoscopy today. Cystoscopy findings -- prostatic urethra bilobar enlargement with prominent median lobe, bulbous urethra WNL, no suspicious bladder lesions visualized. I have discussed treatment options for his concerns regarding urination. Maximizing medication versus surgical management including but not limited to GreenLight laser or TURP. The patient wants to avoid surgical procedures at this time. Plan discussed increase tamsulosin to b.i.d. and start Proscar 5 mg daily. 05/11/23--Cody is a 73-year-old male who has been referred due to hematuria. PMHx of sys-oodkcza-tyupcnnvx diabetes mellitus, essential hypertension, mixed hyperlipidemia, mood disorder. In review of the chart the patient is recently an inpatient at [facility], he presented to the ED on 03/30/2023 complaining of painless blood in stools, he had workup done by GI and is discharged on 04/02/23. I reviewed CT imaging done on 03/30/2023 kidneys were within normal limits. The patient complains of nocturia x4, complains of intermittent stream. States he noticed episode of blood in the urine after urination this March x1 episode, denies dysuria. Denies history of kidney stones, history of nicotine use, cigarette use started at age 15 quit age 63 smoked up to a pack and a half daily. I have reviewed chart CT imaging as noted above kidneys negative for stones or solid masses, 03/17/2023 urine culture less than 10,000 colonies. I have discussed reasons for blood in the urine may include but are not limited to kidney stones, cancer in the urinary tract, kidney stone disease or inflammatory conditions of the urinary tract, BPH. I have discussed workup to include evaluation of the upper tracts and consideration for cystoscopy evaluation. UA-blood trace, leukocytes negative; bladder scan PVR 20 mL. Prostate exam: Smooth, enlarged no suspicious nodules. Plan discussed schedule office cystoscopy. Trial tamsulosin 0.4 mg daily. [facility] Medical History Diabetes Dyslipidemia Hyperlipidemia Inappropriate sinus tachycardia Surgical History Hx of hernia repair Hx of cardiac cath Family History Paternal Grandfather CAD (coronary artery disease) Father Pulmonary disease Maternal Grandmother Diabetes mellitus Social History Household Members: Children Housing: House Do you presently have visiting nurse or other home services: No Alcohol intake: current Alcohol intake frequency: holidays/special occasions only Patient Tobacco Use Status: Former Tobacco user e-Cigarette/Vaping Use: Never Used Second Hand Smoke Exposure: No service: No Current occupational status: retired Cognitive needs: No Hearing needs: No Vision needs: No Review of Systems Const All systems reviewed & are unremarkable except as noted in HPI and below Reports no additional complaints Eyes Reports no additional complaints ENT Reports no additional complaints Card Reports no additional complaints Resp Reports no additional complaints GI Reports no additional complaints Reports as per HPI Musc Reports no additional complaints Skin/Breast Reports system reviewed and no additional complaints, except as documented Neuro Reports no additional complaints Psych Reports no additional complaints Endo Reports no additional complaints Dillon/Lymph Reports no additional complaints Aller/Immun Reports no additional complaints Office Procedures Post Void Residual Post Residual Void Post Void Residual (PVR): 45 11944-Gmwl Void Residual by ultrasound Results AMB Urinalysis, Automated UA Leukoctes 0 Sharita/uL Last Edit by Minggl on 04/25/24 08:35 UA Nitrite Last Edit by Minggl on 04/25/24 08:35 UA Urobilinogen 0.2 mg/dL Last Edit by Minggl on 04/25/24 08:35 UA Protein 15 mg/dL Last Edit by Minggl on 04/25/24 08:35 UA pH 5.5 Last Edit by Minggl on 04/25/24 08:35 UA Blood 25 Musa/uL Last Edit by Minggl on 04/25/24 08:35 UA Specific [place] 1.015 Last Edit by Minggl on 04/25/24 08:35 UA Ketone Last Edit by Minggl on 04/25/24 08:35 UA Bilirubin 0 mg/dL Last Edit by Minggl on 04/25/24 08:35 UA Glucose 500 mg/dL Last Edit by Minggl on 04/25/24 08:35 Results Reviewed Results Reviewed: Laboratory Last Values Urine pH (Auto) 5.5 04/25/24 08:16 Specific [place] (Auto) 1.015 04/25/24 08:16 Urine Protein (Auto) 15 mg/dL 04/25/24 08:16 Glucose (UA)(Auto) 500 mg/dL 04/25/24 08:16 Urine Blood (Auto) 25 Musa/uL 04/25/24 08:16 Urine Bilirubin (Auto) 0 mg/dL 04/25/24 08:16 Urine Urobilinogen (Auto) 0.2 mg/dL 04/25/24 08:16 Leukocyte Esterase (Auto) 0 Sharita/uL 04/25/24 08:16 Assessment & Plan Assessment & Plan (1) Screening PSA (prostate specific antigen): Code(s): Z12.5 - Encounter for screening for malignant neoplasm of prostate Category: Medical (2) BPH loc w urin obs/LUTS: Code(s): N40.1 - Benign prostatic hyperplasia with lower urinary tract symptoms Category: Medical (3) Nocturia: Code(s): R35.1 - Nocturia Category: Medical (4) Hematuria: Code(s): R31.9 - Hematuria, unspecified Category: Medical (5) UTI symptoms: Code(s): R39.9 - Unspecified symptoms and signs involving the genitourinary system Category: Medical Plan tamsulosin to b.i.d., Proscar 5 mg daily. Discussed TURP versus GreenLight laser. Urine culture, empirically start Bactrim DS pending culture. Orders: Orders AMB Urinalysis Automated Today Z13.9 - Encounter for screening, unspecified PSA,Total (Free>4and<10) 5 Months Z12.5 - Encounter for screening for malignant neoplasm of prostate AMB Post Void Residual by ultrasound Today R35.1 - Nocturia Medications: New sulfamethoxazole-trimethoprim 800-160 mg (Bactrim DS) 1 tab PO BID 10 tabs 0RF Refilled tamsulosin (Flomax) 0.4 mg PO BID 180 caps 2RF finasteride (Proscar) 5 mg PO DAILY 90 days 90 tabs 3RF Patient Instructions: The patient had an opportunity to ask questions regarding treatment plan. The patient expressed understanding and agreement with the above treatment plan. The patient is aware they should contact our office by phone for worsening of their current condition or the appearance of new symptoms. Compliance is encouraged with any medications and followup testing that is ordered. It is a privilege to be allowed the opportunity to participate in the urologic care of your patient. If you have any questions or concerns regarding treatment for the above conditions please do not hesitate to contact me. The office telephone contact is [phone]. This note is constructed in part using voice recognition software. While every effort has been made to ensure accuracy litigation docket manager errors may have been included. Yours sincerely, Gordy Hedrick MD Coding Level of Care Code Est Pt Level 4 (36847) Complex EM visit Add On G2211 Diagnoses Screening PSA (prostate specific antigen) Z12.5 BPH loc w urin obs/LUTS N40.1 Nocturia R35.1 Hematuria R31.9 UTI symptoms R39.9 CPT Codes Post Residual Void - PVR CPT Code: 40481-Lstu Void Residual by ultrasound ([id number])
== END 2024-04-25 08:57 | disposition home or self-care (01) ==
PROVIDERS: PCP Nurse Practitioner Family; Visit Provider Urology
DX: Z12.5 Encounter for screening for malignant neoplasm of prostate (principal); N40.1 Benign prostatic hyperplasia with lower urinary tract symptoms; R35.1 Nocturia; R31.9 Hematuria, unspecified; R39.9 Unspecified symptoms and signs involving the genitourinary system; Z13.9 Encounter for screening, unspecified
CPT/HCPCS: 99214; G2211

== ENCOUNTER 2024-04-25 07:55 | Outpatient (REF) | payer MEDICARE, SELFPAY | END 2024-04-25 07:56 | disposition home or self-care (01) | LOC: HO.LAB 07:55 | PROVIDERS: PCP Nurse Practitioner Family; Visit Provider Urology | DX: N39.0 Urinary tract infection, site not specified (principal); N40.1 Benign prostatic hyperplasia with lower urinary tract symptoms; R35.1 Nocturia; R31.9 Hematuria, unspecified; R39.9 Unspecified symptoms and signs involving the genitourinary system; Z13.9 Encounter for screening, unspecified; Z12.5 Encounter for screening for malignant neoplasm of prostate | CPT/HCPCS: 51798; 81003; 87086; 87088; 87186; 99212 ==

== ENCOUNTER 2024-04-28 11:12 | Outpatient (REF) | payer MEDICARE, SELFPAY ==
[2024-04-28 13:12] LABS: MANUAL DIFF FLAG NO
[2024-04-28 13:14] LABS: Appearance Urine Clear; Color Urine Yellow; Glucose Urine UA >=1000 mg/dL (Negative); Leukocyte Esterase Urine Negative (Negative); Nitrite Urine Negative (Negative); Specific Gravity - Urine >= 1.030 (1.005-1.025); UMIC TRIGGER UACC YES; Urine Blood Negative (Negative); Urine Ketones Trace mg/dL (Negative); Urine Protein 30 (1+) mg/dL (Neg-Trace)
[2024-04-28 13:15] LABS: Basophils Absolute Auto 0.1 X10*3/uL (0.0-0.2); Basophils Percent Auto 0.7 % (0-2); Eosinophils Absolute Auto 0.1 X10*3/uL (0.0-0.4); Eosinophils Percent Auto 1.2 % (0-4); Hematocrit 54.6 % (42.0-52.0); Imm Gran Abs Auto 0.06 X10*3/uL (0.00-0.03); Imm Gran Pct Auto 0.6 % (0.0-0.4); Lymphocytes Absolute Auto 1.4 X10*3/uL (1.2-4.9); Mean Corpuscular HGB Conc 31.1 g/dl (31.0-36.0); Mean Corpuscular Hemoglobin 28.2 pg (27.0-33.0); Mean Corpuscular Volume 90.5 fL (80.0-98.0); Mean Platelet Volume 10.3 fL (9.4-12.4); Monocytes Absolute Auto 0.6 X10*3/uL (0.1-1.2); Monocytes Percent Auto 5.6 % (2-11); Neutrophils Absolute Auto 8.6 x10*3/uL (2.0-8.3); Neutrophils Percent Auto 78.9 % (45-73); Platelet Count 228 X10*3/uL (160-400); Red Blood Count 6.03 X10*6/uL (4.60-5.80); Red Cell Distribution Width 14.8 % (11.0-16.0); White Blood Count 10.9 X10*3/uL (4.8-10.8)
[2024-04-28 13:29] LABS: Bacteria Urine None Seen (None Seen); Hyaline Casts Urine 0-2 /LPF (0-2); RBC Urine 0-2 /HPF (0-2); Squamous Epithelial Cell Urine 0-2 /HPF (0-2); WBC Urine 0-5 /HPF (0-5)
[2024-04-28 13:48] LABS: Alanine Aminotransferase 23 U/L (0-40); Albumin Level 4.2 g/dL (3.5-5.0); Alkaline Phosphatase 80 U/L (39-117); Anion Gap 13 (12-20); Aspartate Amino Transferase 23 U/L (5-37); Bilirubin Total 0.5 mg/dL (0.0-1.0); Blood Urea Nitrogen 13 mg/dL (9-16); Calcium 9.2 mg/dL (8.4-10.2); Carbon Dioxide 22 mmol/L (22-29); Chloride 108 mmol/L (96-108); Cholesterol 98 mg/dL (<200); Estimated Glomerular Filt Rate > 60; Glucose Fasting 106 mg/dL (60-99); HDL Cholesterol 34 mg/dL (>40); LDL Cholesterol Calculated 33 mg/dL (<100); Potassium 4.2 mmol/L (3.3-5.1); Sodium 139 mmol/L (135-145); Total Protein 7.5 g/dL (6.5-8.0); Triglycerides 156 mg/dL (<150)
[2024-04-28 13:55] LABS: TSH reflex Free T4 0.75 uIU/mL (0.32-4.0)
--- OUTSIDE RECORDS SUMMARY | 2024-04-28 14:41 | XMS_ITS | Patient Health Record ---
Author Organization [facility] Florentin marguerite Garwood Address [address] [place] [address] Care Team Providers Care Research Contracts Supervisor Name Role Phone Geovani Sears Primary Care Provider Unav ailable Crow Morris Unavailable [phone] Allergies No Known Allergies Results Component Value [...] Problem Acquired hammer toe of right foot (6670783313360590 ) Other hammer toe(s) (acquired), right foot (M20.41) Active confirmed Problem Acquired hammer toe of left foot (5516775912436957 ) Other hammer toe(s) (acquired), left foot (M20.42) Active confirmed Problem Polyneuropathy due to type 2 diabetes mellitus (236737983) Type 2 diabetes mellitus with diabetic polyneuropathy (E11.42) Active confirmed Vital Signs Blood pressure diastolic 74 mm Hg 02/02/2024 Height 6 ft in 02/02/2024 Blood pressure systolic 138 mm Hg 02/02/2024 Weight 245 lbs 02/02/2024 BMI 33.22 kg/m2 02/02/2024 Procedures Procedure Date Ordered Date Performed Result Body Sit e 67776-EDNPLQM NAIL, 6 OR MORE 11/03/2023 N/A 84869-Urtcnrjp Plate 11/03/2023 N/A 93146-JMFX SKIN LESIONS, 2 TO 4 11/03/2023 N/A 26758-JULPRYZ NAIL, 6 OR MORE 02/02/2024 N/A 39303-LDCE SKIN LESIONS, 2 TO 4 02/02/2024 N/A Encounters Encounter Location Date Provider Diagnosis [address] [address] 11/03/2023 Crow Morris Type 2 diabetes mellitus with diabetic polyneuropathy E11.42 ; Tinea unguium B35.1 ; Ingrown nail L60.0 ; Other hammer toe(s) (acquired), right foot M20.41 and Other hammer toe(s) (acquired), left foot M20.[address] [address] 02/02/2024 Crow Morris Type 2 diabetes mellitus with diabetic polyneuropathy E11.42 and Tinea unguium B35.[address] [address] 07/23/2023 Crow Garciaier Assessments Encounter Date Diagnosis [...] Treatment Pending Test Test Name Order Date 77471-CMJEQFF NAIL, 6 OR MORE 11/03/2023 23914-CPHWAZK NAIL, 6 OR MORE 02/02/2024 63798-Hhesmtyu Plate 11/03/2023 89208- Debride <25 sq cm 07/23/2018 76739 I&D ABSCESS- SIMPLE,SINGLE 019 97235-SQOJ SKIN LESIONS, 2 TO 4 11/03/19 56782-JZHX SKIN LESIONS, 2 TO 4 02/02/20 Next Appt Details Provider Name:Crow Morris , 05/03/2024 11:00:00 AM, [address] [place], [address], Insurance Providers Payer Name Payer Address Payer Phone Subscriber Number Group Number Insured Name Patient Relationship to Insured Coverage Start Date Coverage End Date Medicare National Govt [employer] [address] [place] [address] [id number] Cody Rebollar Self - patient is the insured 7 [employer]ex Blue Shield [address] [place] [address] [id number] Cody Rebollar Self - patient is the [...] Hernia Repair 2000 Hospitalization History Reason Date(Month/Year[place] [facility] [place] 04/[place]23
== END 2024-04-28 11:13 | disposition home or self-care (01) ==
LOC: HO.HMGCLDS 11:12
PROVIDERS: PCP Nurse Practitioner Family; Visit Provider Nurse Practitioner Family
DX: E11.40 Type 2 diabetes mellitus with diabetic neuropathy, unspecified (principal); K92.2 Gastrointestinal hemorrhage, unspecified
CPT/HCPCS: 36415; 80053; 80061; 81001; 84443; 85025; 96127; 99212

== ENCOUNTER 2024-04-28 11:12 | Outpatient (AMB) | payer MEDICARE, SELFPAY ==
--- NOTE | 2024-04-28 11:19 | MHC.PC.OV ---
Vital Signs 04/28/24 11:20 Height 6 ft Weight 250 lb BMI 33.9 BP 136/80 Blood Pressure Location Rt brachial Position Sitting Pulse 99 Pulse Source Pulse Oximeter Pulse Oximetry (%) 93 Intake Visit Reasons: 4 months f/up Allergies No Known Allergies Allergy (Verified 04/28/24 11:20) Medication List - Last Reconciled 04/28/24 by Geovani Samayoa, MEAT MARKET MANAGER- aspirin (Adult Aspirin Regimen) 81 mg PO DAILY betamethasone, augmented 0.05 % 1 appl topical BID scvqvmnlub-lzfrefwf-tchsmvwals 160-9-4.8 mcg/actuation (Breztri Aerosphere) 2 inhalations inhalation BID cholecalciferol (vitamin D3) 50 mcg PO DAILY duloxetine 20 mg PO DAILY empagliflozin (Jardiance) 10 mg PO DAILY finasteride (Proscar) 5 mg PO DAILY 90 days furosemide (Lasix) 40 mg PO DAILY ipratropium-albuterol 20-100 mcg/actuation (Combivent Respimat) 1 puff inhalation Q6H PRN ivabradine (Corlanor) 5 mg PO DAILY 90 days meloxicam 15 mg PO DAILY PRN metformin 1,000 mg PO BID 90 days omeprazole 40 mg PO DAILY rosuvastatin 40 mg PO DAILY sulfamethoxazole-trimethoprim 800-160 mg (Bactrim DS) 1 tab PO BID tacrolimus 0.1% topical tamsulosin (Flomax) 0.4 mg PO BID verapamil ER 240 mg PO DAILY vitamin B complex (B Complex-Vitamin B12 tablet) 1 tab PO DAILY Tobacco use date assessed: 04/28/24 Fall risk assessment: No Falls in past year Last assessed Fall Risk: 04/28/24 Dental Screening Dental Screen Date: 04/28/24 Did you have a dental visit in the last 12 months?: Yes Did you have a dental problem in the last 6 months where you did not have access to dental care?: No Was dental information given to patient?: Patient has dentist HPI 4 months f/up HPI Details Chief Complaint The patient presents for follow-up management of diabetes and associated neuropathy. History of Present Illness The patient is a 74-year-old male presenting with follow-up for Type 2 Diabetes Mellitus management. His Hemoglobin A1c currently stands at 6.7%, suggesting controlled glycemic levels. Despite good glycemic control, the patient suffers from diabetic neuropathy, characterized by reduced sensation in the lower extremities, as evaluated using a monofilament. He maintains regular podiatric consultations to manage this condition and prevent complications. In the cardiac examination, a faint systolic murmur has been identified, and lung sounds are diminished bilaterally. The patient does not report any atypical respiratory symptoms. These findings are monitored for further evaluation and potential management. Social History Health Maintenance - Regular Hemoglobin A1c testing; current level at 6.7% - Regular podiatry visits for diabetic foot care - Monitoring and management of neuropathy Review of Systems - Neurological: Denies polyuria, denies polydipsia, has neuropathy - Endocrine: Denies any additional symptoms of poorly controlled blood glucose -denies CP but does get SOB - Physical Exam General: Cooperative, healthy appearing, comfortable, no acute distress and well developed, morbidly obese Orientation: Patient oriented x3 Limitations: No limitations Head: Normal to inspection Ears: Hearing grossly normal bilaterally Nose: Normal external nose present Face and sinus: Normal facial exam Eyes: Appearance normal, both eyes and all related structures Neck: Normal visual inspection and Yes full ROM Respiratory: Diminished breath sounds bilaterally Cardiovascular: Faint systolic murmur. Regular rate and rhythm. Normal S1 and S2 GI: Normal to inspection. Soft to palpation and nontender Skin: No rashes or lesions noted Neuro: Patient oriented x3 Extremities: No sensation with the use of monofilament to feet. Both feet were intact. Results - Labs: Hemoglobin A1c is 6.7% Plan 1. 7%, reflecting satisfactory glycemic control. While neuropathy persists with decreased lower limb sensation, it is managed with regular podiatric oversight. We will continue monitoring the faint systolic murmur and bilateral lung assessment in future follow-ups. There are no new treatments or interventions required at this moment, and the medication regimen remains unchanged given the current stable status.: Discussion Notes I discussed with the patient the satisfactory control of his diabetes, emphasizing the importance of continued adherence to his current medication and lifestyle regimen. We reviewed the presence of neuropathy and its management through regular licensed sales producer visits. I advised him on the importance of monitoring feet for any changes and seeking prompt care if necessary. We briefly touched upon the faint systolic murmur and diminished lung sounds, but given the lack of symptoms, we will continue surveillance rather than immediate intervention. Future follow-up will assess for any progression in symptoms or condition, ensuring comprehensive management of his chronic conditions. Patient Instructions - Continue current medications as prescribed for diabetes management. - Maintain regular podiatric appointments to monitor foot health. - Watch for any new symptoms, especially in the feet or chest, and contact the office if any concerns arise. - Return for regular follow-up appointments to monitor blood sugar levels and overall health. [facility] Medical History Diabetes Dyslipidemia Hyperlipidemia Inappropriate sinus tachycardia Surgical History Hx of hernia repair Hx of cardiac cath Family History Paternal Grandfather CAD (coronary artery disease) Father Pulmonary disease Maternal Grandmother Diabetes mellitus Social History Household Members: Children Housing: House Do you presently have visiting nurse or other home services: No Alcohol intake: current Alcohol intake frequency: holidays/special occasions only Patient Tobacco Use Status: Former Tobacco user e-Cigarette/Vaping Use: Never Used Second Hand Smoke Exposure: No service: No Current occupational status: retired Cognitive needs: No Hearing needs: No Vision needs: No Questionnaire PHQ-9 Over the last 2 weeks, how often have you been bothered by any of the following problems? 1. Little interest or pleasure in doing things: not at all 2. Feeling down, depressed, or hopeless: not at all 3. Trouble falling or staying asleep, or sleeping too much: not at all 4. Feeling tired or having little energy: not at all 5. Poor appetite or overeating: not at all 6. Feeling bad about yourself - or that you are a failure or have let yourself or your family down: not at all 7. Trouble concentrating on things, such as reading the newspaper or watching television: not at all 8. Moving or speaking so slowly that other people could have noticed. Or the opposite - being so fidgety or restless that you have been moving around a lot more than usual: not at all 9. Thoughts that you would be better off or of hurting yourself in some way: not at all Total score: 0 Depression Screening Interpretation: Negative Depression Screening Done: Yes 76132 - PHQ-9 Billing: Yes Source: Developed by Drs. Raji Jones, Joanna Lopez, Nathaniel Edgar and colleagues, with an educational galen from [employer]. Thrive Questionnaire Date Thrive assessed: 04/28/24 I am a: Patient What is your living situation today?: I have a steady place to live Within the past 12 months, did the food you bought not last and you didn't have the money to get more?: Never true Within the past 12 months, did you worry whether your food would run out before you got money to buy more?: Never true Do you have trouble paying for medicines?: No Do you have trouble getting transportation to medical appointments?: No Do you have trouble paying your heating and electricity bill?: No Do you have trouble taking care of your child, family member or friend?: No Do you have trouble with day-to-day activities such as bathing, preparing meals, shopping, managing finances, etc.?: No Are you currently unemployed and looking for a job?: No Are you interested in more education?: No Please select the resources that you would like help with: None Currently or been in a relationship where the following occur: I choose not to answer THRIVE Score: 0 AUDIT C Alcohol Use Questionnaire (AUDIT-C) 1. How often do you have a drink containing alcohol?: Monthly or less 2. How many drinks containing alcohol do you have on a typical day when you are drinking?: 1 or 2 3. How often do you have six or more drinks on one occasion?: Never Total Score: 1 Score Reviewed/Action Taken: Yes RAMON-7 AMB Questionnaire RAMON-7 Date RAMON - 7 assessed: 04/28/24 Feeling nervous, anxious, or on edge: 0 = Not at all Not being able to stop or control worryin = Not at all Worrying too much about different things: 0 = Not at all Trouble relaxin = Not at all Being so restless that it is hard to sit still: 0 = Not at all Becoming easily annoyed or irritable: 0 = Not at all Feeling afraid as if something awful might happen: 0 = Not at all Total RAMON-7 score (0-4 normal; 5-9 mild; 10-14 moderate; 15-21 severe): 0 Source: Developed by Drs. Raji Jones, Joanna Lopez, Nathaniel Edgar and colleagues, with an educational galen from [employer]. RAMON-7 Assessment Billing RAMON-7 Assessment Tool: RAMON-7 Assessment 05973 Physical exam (Primary Care) Vital Signs: Last Vital Signs Pulse 99 04/28/24 11:20 BP 136/80 04/28/24 11:20 Pulse Ox 93 04/28/24 11:20 BMI result Body Mass Index 33.9 Tobacco/Smoking Status: Tobacco use Status Tobacco use date assessed 04/28/24 04/28/24 11:26 Patient Tobacco Use Status Former Tobacco user 04/28/24 11:23 e-Cigarette/Vaping Use Never Used 04/28/24 11:23 PHQ-9: PHQ-9 Score PHQ-9: Total score 0 04/28/24 11:26 Depression Screening Interpretation: Negative Thrive Assessment: Date of Thrive Assessment Date Thrive assessed 04/28/24 04/28/24 11:26 Currently or been in a relationship where the following occur: I choose not to answer Coding Level of Care Code Est Pt Level 3 (86688) Diagnoses Diabetes E11.9 Additional Codes RAMON-7 Assessment Billing - RAMON-7 Assessment Tool: RAMON-7 Assessment 57967 ([id number]) PHQ-9 - 48108 - PHQ-9 Billing: Yes ([id number]) Assessment & Plan Assessment & Plan (1) Diabetes: Code(s): E11.9 - Type 2 diabetes mellitus without complications Category: Medical Plan . Scribe Plan - Not visible on output: .
[2024-04-28 11:20] VITALS: BP 136/80; PULSE 99; O2SAT 93; BMI 33.9
--- OUTSIDE RECORDS SUMMARY | 2024-04-28 13:30 | XMS_ITS ---
Author Organization [facility] Florentin [place] Address [address] [place] [address] Care Team Providers Care Bale Opener Name Role Phone Geovani Sears Primary Care Provider Unav ailable Crow Morris Unavailable [phone] Allergies No Known Allergies REASON FOR VISIT [...] Ordered Date Performed Result Body Sit e 94688-NQNPHPS NAIL, 6 OR MORE 02/02/2024 N/A 02235-KDGV SKIN LESIONS, 2 TO 4 02/02/2024 N/A Encounters Encounter Location Date Provider Diagnosis [facility] [address] [place] [address] 02/02/2024 Crow Morris Type 2 diabetes mellitus with diabetic polyneuropathy E11.42 and Tinea unguium B35.1 Assessments Encounter Date Diagnosis (ICD Code) Assessment Notes Treatment Notes Treatment Clinical Notes Section Notes 02/02/2024 Type 2 diabetes mellitus with diabetic polyneuropathy (ICD-10 - E11.42) 02/02/2024 Tinea unguium (ICD-10 - B35.1) 02/02/2024 Other Plan Of Treatment Pending Test Test Name Order Date 56458-JPRWTFT NAIL, 6 OR MORE 02/02/2024 80199-OEIS SKIN LESIONS, 2 TO 4 02/02/20 24 Next Appt Details Follow Up: prn, Reason: Provider Name:Crow Morris , 05/03/2024 11:00:00 AM, [address] [place], [address], Procedure Notes * Category Sub-Category Detail Notes [...] use of a nail nipper and/or dremel-type slab grinder, to a more viable healthy nail [...] to maintain effectiveness in symptomatic relief - 82227 Keratoma Treatment Parring or Cutting o f Benign Hyperkeratotic Lesion(s) (-56) 2-4 Lesions - The Benign hyperkeratotic lesions, ( 4) in total, locations as stated and described in exam, were pared, and/or cut utilizing a sterile 15 blade, tissue nippers, and/or power dremel instrumentation - 43420 Progress Notes * Cody OSEGUERA WDOB: [birth year] (73 yo M)Acc No.[id number]:02/02/2024 Progress Note Patient:?Cody OSEGUERA W Provider:?Crow Morris DPM :1950???Age:73 Y???Sex:Male Con e:02/02/2024 Address:[address] [place], [place] [id number] Pcp:LOU Sun Subjective: * Chief Complaints: * [...] 1998Hernia Repair 2001 * Hospitalization/Major Diagno stic Procedure:[place] [place] Throwing up blood 04/2023 * Family History:?Mother: [...] use of a nail nipper and/or dremel-type slab grinder, to a more viable healthy nail [...] to maintain effectiveness in symptomatic relief - 60261.?Keratoma Treatment:?Parring or Cutting of Benign Hyperkeratotic Lesion(s)?(-56) 2-4 Lesions - The Benign hyperkeratotic lesions, ( 4) in total, locations as stated and described in exam, were pared, and/or cut utilizing a sterile 15 blade, tissue nippers, and/or power dremel instrumentation - 91950.? * Procedure Codes:?40826 DEBRI DE NAIL, 6 OR MORE, Modifiers: XS 49706 TRIM SKIN LESIONS, 2 TO 4, Modifiers: XS * Follow Up:?prn * Images: * Sign off status: Completed true * Provider:?Crow Morris DPM Date:?2023 Generated for Kirill kaplan/Lily/Yousif on:?04/28/2024 01:30 PM EST History and Physical Notes * HPI [...]
--- OUTSIDE RECORDS SUMMARY | 2024-04-28 13:31 | XMS_ITS ---
Author Organization [facility] Address [address] [place] [address] Care Team Providers Care Graduate [employer] Dean Name Role Phone PAOLO TERRELL Primary Care Provider Raji Salas Unavailable [phone] Ezekiel Luu Jr Unavailable REASON FOR VISIT GI bleed Encounters Encounter Location Date Provider Diagnosis [facility] Inpatient [address], [place] [id number] 04/01/2023 Ezekiel Luu Jr PLAN OF TREATMENT No Information
--- OUTSIDE RECORDS SUMMARY | 2024-04-28 13:31 | XMS_ITS ---
Author Organization [facility] Address [address] [place] [address] Care Team Providers Care Machine Maintenance Technician Name Role Phone PAOLO TERRELL Primary Care Provider Raji Salas Unavailable [phone] REASON FOR VISIT pathology/ 3yr colon recall Encounters Encounter Location Date Provider Diagnosis [facility] [address] [place] [address] 04/09/2023 Raji Tellez PLAN OF TREATMENT No Information
--- OUTSIDE RECORDS SUMMARY | 2024-04-28 13:31 | XMS_ITS ---
Author Organization [facility] Address [address] [place] [address] Care Team Providers Care Electrical Engineering Technician Name Role Phone Geovani Sears Primary Care Provider Unav ailable Crow Morris Unavailable [phone] REASON FOR VISIT ON Encounters Encounter Location Date Provider Diagnosis [address] [address] 07/23/2023 Crow Morris Plan Of Treatment Next Appt Details Provider Name:Crow Morris , 05/03/2024 11:00:00 AM, [address] [place] [address], [address], Progress Notes * Cody REBOLLAR WDOB: 3 (73 yo M)Acc No.[id number]:07/23/2023 Patient:?Cody Rebollar :1950???Age:73 Y???Sex:Male Address:[address] [place] [address] [place] [address] * true * Date:? Generated for Kirill kaplan/Lily/eTransmitting on:?04/28/2024 01:30 PM EST
--- OUTSIDE RECORDS SUMMARY | 2024-04-28 13:31 | XMS_ITS ---
Author Organization [facility] Florentin Alas Address [address] [place] [address] Care Team Providers Care Signal Intelligence/Electronic Warfare Name Role Phone Geovani Sears Primary Care Provider Unav ailable Crow Morris Unavailable [phone] Allergies No Known Allergies REASON FOR VISIT [...] Problem Acquired hammer toe of right foot (5974893927540 105) Other hammer toe(s) (acquired), right foot (M20.41) Active confirmed Problem Acquired hammer toe of left foot (0294779502752 103) Other hammer toe(s) (acquired), left foot (M20.42) Active confirmed Vital Signs Height 6 ft in 11/03/2023 Weight 245 lbs 11/03/2023 BMI 33.22 kg/m2 11/03/2023 Blood pressure systolic 138 mm Hg 11/03/19 24 Blood pressure diastolic 74 mm Hg 024 Procedures Procedure Date Ordered Date Performed Result Body Sit e 74293-EEXXADD NAIL, 6 OR MORE 11/03/2023 N/A 56844-Pgafzsvm Plate 11/03/2023 N/A 84473-VCRG SKIN LESIONS, 2 TO 4 11/03/2023 N/A Encounters Encounter Location Date Provider Diagnosis [facility] [place] [address] [place] [address] 11/03/2023 Crow Morris Type 2 diabetes mellitus [...] INSTRUCTIONS.pdf) Pending Test Test Name Order Date 61236-PWPJXXT NAIL, 6 OR MORE 11/03/2023 42842-Ygjomwza Plate 11/03/2023 42371-ZFIC SKIN LESIONS, 2 TO 4 11/03/19 24 Next Appt Details Follow Up: prn, Reason: Provider Name:Crow Morris , 05/03/2024 11:00:00 AM, [address] [facility], [place], [address], Procedure Notes * Category Sub-Category [...] Motrin was recommended for pain or discomfort (69748) , DIABETES: Pt was advised as to [...] of a nail nipper and/or dremel-type grinder set up operator thread, to a more viable healthy nail plate or bed tissue 6-10. Silver nitrate used for any petechial bleeding as necessary. Definitive antifungal treatment options have been reviewed and discussed with the patient. The patient chooses, no pharmaceutical tx - 55141 Keratoma Treatment Parring or Cutting o f Benign Hyperkeratotic Lesion(s) 82748 ( 2-4 Lesions ) - The Benign hyperkeratotic lesions, as described above were pared, and/or cut utilizing a sterile 15 blade, tissue nippers, and/or dremel - 63072 Progress Notes * Cody OSEGUERA WDOB: 3 (73 yo M)Acc No.[id number]:11/03/2023 Progress Notes Patient:?Cody OSEGUERA Provider:?Crow Morris DPM :1950???Age:73 Y???Sex:Male Con e:11/03/2023 Address:[address] [place], [place] [address] Pcp:LOU Sun Subjective: * Chief Complaints: * [...] 1998Hernia Repair 2000 * Hospitalization/Major Diagno stic Procedure:[place] [place] Throwing up blood 04/2023 * Family History:?Mother: [...] B/L.?VARICOSITIES:?present, moderate, nonpainful, B/L.?Ophthalmology Referral: ?DIABETES EYE EXAM?Procedure Performed:?Yes ?Date of Exam Performed?06/17/2023 ?Diabetic Retinopathy Screening:?Yes ?Findings of Diabetic Eye Exam:?no retinopathy?General Examination: ?GENERAL APPEARANCE:?Reveals a pleasant, alert, well nourished, well- developed, well hydrated individual, who demonstrates proper attention to hygiene/body habitus, and is in no acute distress, Pt serves as own historian for office visit today.?ORIENTED:?person, place, and time.?FOOT EXAM:?Lower Extremity Neurological Exam performed:?Yes ?Visual exam of foot performed:?Yes ?Date?11/03/2023 ?Footwear Evaluation?Footwear Evaluation performed:?Yes??? Assessment: * Assessment: 1.?Type 2 diabetes mellitus with diabetic polyneuropathy - E11.42 (Primary)???2.?Tinea unguium - B35.1???3.?Ingrown nail - L60.0???Specify :Lateral nail border , T5???4.?Other hammer toe(s) (acquired), right foot - M20.41???Specify :Chronic problem, Worse (4),Rx Management (4)???5.?Other hammer toe(s) (acquired), left foot - M20.42???Specify :Chronic problem, Worse (4),Rx Management (4)??? Plan: * Treatment: 2.?Ingrown nail?Procedure: 19050-Heiamnge Plate 3.?Other hammer toe(s) (acqu ired), right [...] of a nail nipper and/or dremel-type grinder set up operator thread, to a more viable healthy nail plate or bed tissue 6-10. Silver nitrate used for any petechial bleeding as necessary. Definitive antifungal treatment options have been reviewed and discussed with the patient. The patient chooses, no pharmaceutical tx - 48679.?Keratoma Treatment:?Parring or Cutting of Benign Hyperkeratotic Lesion(s)?50522 ( 2-4 Lesions ) - The Benign hyperkeratotic lesions, as described above were pared, and/or cut utilizing a sterile 15 blade, tissue nippers, and/or dremel - 90708.?Nail Avulsion:?Location?Lateral nail border?,?T5.?Anesthesia?was deferred - NEUROPATHY: patient [...] Motrin was recommended for pain or discomfort (38337) , DIABETES: Pt was advised as to the risk of delayed or nonhealing due to diabetes. Pt is to call the office with any questions, concerns, or complications.? * Procedure Codes:?66212 DEBRI DE NAIL, 6 OR MORE, Modifiers: XS 49240 Avulsion Plate, Modifiers: XS , [id number] TRIM SKIN LESIONS, 2 TO 4, Modifiers: [...] DPM Date:?2023 Generated for Kirill kaplan/Lily/Yousif on:?04/28/2024 01:31 PM EST History and Physical Notes * [...]
--- OUTSIDE RECORDS SUMMARY | 2024-04-28 13:32 | XMS_ITS | Patient Health Record ---
Author Organization [facility] Address [address] [place] [address] Care Team Providers Care Care Specialist Name Role Phone PAOLO TERRELL Primary Care Provider Raji Salas Unavailable [phone] ALLERGIES Allergen (clinical drug ingredient) Drug/Non Drug Allergy documented on EMR Reaction Allergy Type Onset Date Status Aloe Aftersun Unknown Drug Allergy Act alejandro REASON FOR REFERRAL No Information MEDICATIONS Medication SIG (Take, Route, Frequency, Duration) Notes Start Date End Date Status Lasix 40 MG 1 tablet Orally Once a day for 30 day(s) Active Vitamin D (Ergocalciferol) 82555 UNIT as directed Oral twice a week [...] malignant neoplasm of colon (Z12.11) Active confirmed 492186576 Problem History of adenomatous polyp of colon (Z86.010) Active confirmed 879977933 Problem Iron deficiency (E61.1) Active confirmed 95802938 Problem Diverticulosis of large intestine without hemorrhage (K57.30) Active confirmed Diverticular disease of colon (628383374) Problem Preprocedural examination (Z01.818) Active confirmed 156084300758625 Problem Gastroesophageal reflux disease, esophagitis presence not specified (K21.9) Active confirmed 141056742 PLAN OF TREATMENT Pending Test Test Name Order Date GI BIOPSY 10/22/2018 Future Test Test Name Order Date UPPER GI ENDOSCOPY 07/15/2018 COLONOSCOPY 07/15/2018 Insurance Providers Payer Name Payer Address Payer Phone Subscriber Number Group Number Insured Name Patient Relationship to Insured Coverage Start Date Coverage End Date MEDICARE OF [place] [address] [place] [address] [phone] [id number] IRENE OSEGUERA Self - patient is the insured MED[employer] ATTN CLAIMS [address] [place] [address] [id number] IRENE OSEGUERA Self - patient is the insured MEDICAL (GENERAL) HISTORY Medical History History ICD Code Denies NV,CVA,renal disease NIDDM COPD Colonoscopy in 2006 with mul tiple tubular adenoms removed, 1 with moderate dysplasia GERD--UGI in 2016 with a hiatal hernia Neuropathy in arms and legs HTN Edema Surgical History Surgery Date(Month/Year) Right inguinal hernia repair x 2 Heel spur
== END 2024-04-28 12:12 | disposition home or self-care (01) ==
PROVIDERS: PCP Nurse Practitioner Family; Visit Provider Nurse Practitioner Family
DX: E11.9 Type 2 diabetes mellitus without complications (principal)

== ENCOUNTER 2024-05-03 08:11 | Inpatient (IN) | payer MEDICARE, SELFPAY ==
[2024-05-03] VITALS (7 sets, daily range): BP systolic 114–157; BP diastolic 45–104; PULSE 85–110; RESP 12–20; TEMP 36.3–36.8; O2SAT 95–98; BMI 32.8
--- NOTE | ~2024-05-03 | CT_ITS ---
CLINICAL HISTORY: Lower GI bleed CT angiogram abdomen and pelvis per GI bleed protocol Comparison: CT/REG/SR - CT GI BLEED ABD PEL WO/W IVCON - 03/30/23 20:24 EST Findings: Vascular: There is active extravasation of contrast involving the sigmoid colon, reference axial images 143-156, series 9. There is severe atherosclerotic disease of the aorta. The inferior mesenteric artery origin does appear to be patent. The celiac artery and superior mesenteric artery also widely patent. Renal arteries are patent. No dissection or aneurysm. Nonvascular: The liver, gallbladder, spleen, adrenal glands and pancreas demonstrate no acute process. Low-density within the cephalad aspect of the spleen may reflect hemangioma or a cyst. Tiny rounded low-density lesions within the liver also likely reflects cysts. These are unchanged. Kidneys, ureters and bladder demonstrate no acute or suspicious abnormality. Extensive diverticulosis along the colon. The prostate gland is enlarged. No acute osseous finding. Impression: Findings are consistent with active GI bleed within the midsigmoid colon. Extensive diverticulosis is present. The mesenteric arteries are patent. This document has been electronically signed by: Gregory Garcia MD on 05/04/2024 18:44:57
[2024-05-03 08:41] LABS: MANUAL DIFF FLAG NO
[2024-05-03 08:42] LABS: Basophils Absolute Auto 0.1 X10*3/uL (0.0-0.2); Basophils Percent Auto 0.8 % (0-2); Eosinophils Absolute Auto 0.1 X10*3/uL (0.0-0.4); Eosinophils Percent Auto 1.3 % (0-4); Hematocrit 51.7 % (42.0-52.0); Hemoglobin 16.6 g/dl (14.0-18.0); Imm Gran Abs Auto 0.04 X10*3/uL (0.00-0.03); Imm Gran Pct Auto 0.4 % (0.0-0.4); Lymphocytes Absolute Auto 1.5 X10*3/uL (1.2-4.9); Mean Corpuscular HGB Conc 32.1 g/dl (31.0-36.0); Mean Corpuscular Hemoglobin 28.8 pg (27.0-33.0); Mean Corpuscular Volume 89.6 fL (80.0-98.0); Mean Platelet Volume 9.6 fL (9.4-12.4); Monocytes Absolute Auto 0.6 X10*3/uL (0.1-1.2); Monocytes Percent Auto 5.3 % (2-11); Neutrophils Absolute Auto 8.3 x10*3/uL (2.0-8.3); Neutrophils Percent Auto 78.2 % (45-73); Platelet Count 249 X10*3/uL (160-400); Red Blood Count 5.77 X10*6/uL (4.60-5.80); Red Cell Distribution Width 14.6 % (11.0-16.0); White Blood Count 10.6 X10*3/uL (4.8-10.8)
[2024-05-03 09:05] LABS: Alanine Aminotransferase 23 U/L (0-40); Albumin Level 4.2 g/dL (3.5-5.0); Alkaline Phosphatase 81 U/L (39-117); Anion Gap 14 (12-20); Aspartate Amino Transferase 25 U/L (5-37); Bilirubin Total 0.5 mg/dL (0.0-1.0); Blood Urea Nitrogen 15 mg/dL (9-16); Calcium 9.3 mg/dL (8.4-10.2); Carbon Dioxide 22 mmol/L (22-29); Chloride 110 mmol/L (96-108); Creatinine Clr Calc Pharmacy 91.8; Estimated Glomerular Filt Rate > 60; Glucose Random 155 mg/dL (60-115); Potassium 4.9 mmol/L (3.3-5.1); Sodium 141 mmol/L (135-145); Total Protein 7.3 g/dL (6.5-8.0)
--- OUTSIDE RECORDS SUMMARY | 2024-05-03 09:18 | XMS_ITS ---
Author Organization [facility] Address [address] [place] [address] Care Team Providers Care Autocad Electrical Designer Name Role Phone PAOLO TERRELL Primary Care Provider Raji Salas Unavailable [phone] Ezekiel Luu Jr Unavailable [phone] REASON FOR VISIT GI bleed Encounters Encounter Location Date Provider Diagnosis [facility] [address] [place], [place] [id number] 04/01/2023 Ezekiel Luu Jr PLAN OF TREATMENT No Information
--- OUTSIDE RECORDS SUMMARY | 2024-05-03 09:18 | XMS_ITS ---
Author Organization [facility] Florentin Alas Address [address] [facility] [place] [address] Care Team Providers Care Steel Manager Name Role Phone Geovani Sears Primary Care Provider Unav ailable Crow Morris Unavailable [phone] Allergies No Known Allergies REASON FOR VISIT [...] Ordered Date Performed Result Body Sit e 51966-EIXWIJS NAIL, 6 OR MORE 02/02/2024 N/A 52861-GVYP SKIN LESIONS, 2 TO 4 02/02/2024 N/A Encounters Encounter Location Date Provider Diagnosis [facility] [place] [address] [place] [address] 02/02/2024 Crow Morris Type 2 diabetes mellitus with diabetic polyneuropathy E11.42 and Tinea unguium B35.1 Assessments Encounter Date Diagnosis (ICD Code) Assessment Notes Treatment Notes Treatment Clinical Notes Section Notes 02/02/2024 Type 2 diabetes mellitus with diabetic polyneuropathy (ICD-10 - E11.42) 02/02/2024 Tinea unguium (ICD-10 - B35.1) 02/02/2024 Other Plan Of Treatment Pending Test Test Name Order Date 74967-NFBGYUA NAIL, 6 OR MORE 02/02/2024 38971-EGQC SKIN LESIONS, 2 TO 4 02/02/20 24 Next Appt Details Follow Up: prn, Reason: Procedure Notes * Category Sub-Category Detail Notes [...] use of a nail nipper and/or dremel-type swing frame grinder operator, to a more viable healthy nail plate [...] to maintain effectiveness in symptomatic relief - 00983 Keratoma Treatment Parring or Cutting o f Benign Hyperkeratotic Lesion(s) (-56) 2-4 Lesions - The Benign hyperkeratotic lesions, ( 4) in total, locations as stated and described in exam, were pared, and/or cut utilizing a sterile 15 blade, tissue nippers, and/or power dremel instrumentation - 78640 Progress Notes * Cody OSEGUERA WDOB: 3 (73 yo M)Acc No.[id number]:02/02/2024 Progress Note Patient:?KETURAH, Cody W Provider:?Crow Morris DPM :1950???Age:73 Y???Sex:Male Con e:02/02/2024 Address:[address] [place] [phone] Pcp:LOU Sun Subjective: * Chief Complaints: * [...] 1998Hernia Repair 2000 * Hospitalization/Major Diagno stic Procedure:?[facility] [place] Throwing up blood 04/2023 * Family History:?Mother: [...] use of a nail nipper and/or dremel-type swing frame grinder operator, to a more viable healthy nail plate [...] to maintain effectiveness in symptomatic relief - 24735.?Keratoma Treatment:?Parring or Cutting of Benign Hyperkeratotic Lesion(s)?(-56) 2-4 Lesions - The Benign hyperkeratotic lesions, ( 4) in total, locations as stated and described in exam, were pared, and/or cut utilizing a sterile 15 blade, tissue nippers, and/or power dremel instrumentation - 36202.? * Procedure Codes:?86094 DEBRI DE NAIL, 6 OR MORE, Modifiers: XS 88321 TRIM SKIN LESIONS, 2 TO 4, Modifiers: XS * Follow Up:?prn * Images: * Sign off status: Completed true * Provider:?Crow Morris DPM Date:?2023 Generated for Kirill kaplan/Lily/Nicoletteitting on:?05/03/2024 09:17 AM EST History and Physical Notes * [...]
--- OUTSIDE RECORDS SUMMARY | 2024-05-03 09:18 | XMS_ITS ---
Author Organization [facility] Address [address] [place] [address] Care Team Providers Care Medical Claims Manager Name Role Phone Geovani Sears Primary Care Provider Unav ailable Crow Morris Unavailable [phone] Encounters Encounter Location Date Provider Diagnosis [address] [address] 05/03/2024 Crow Morris Plan Of Treatment No Information Progress Notes * Cody REBOLLAR WDOB: 3 (74 yo M)Acc No.[id number]:05/03/2024 Progress Note Patient:Cody STILES Provider:?Crow Morris DPM :1950???Age:74 Y???Sex:Male Con e:05/03/2024 Address:[address] [place] [address] albertoRam[place], [id number] Pcp:LOU Sun Subjective: * Chief Complaints: * ??? * Medical History:? Objective: * Vitals:? Assessment: Plan: * Treatment: * Images: * The named appointment provid er may or may not be the originator of this progress note, and it is not deemed complete until electronically signed by the appointment provider. Sign off status: Pending * Provider:?Crow Morris DPM Date:?2024 Generated for Kirill kaplan/Lily/eTransmitting on:?05/03/2024 09:18 AM EST
--- OUTSIDE RECORDS SUMMARY | 2024-05-03 09:18 | XMS_ITS ---
Author Organization [facility] Address [address] [place] [address] Care Team Providers Care Aoc Director Intelligence Officer Name Role Phone PAOLO TERRELL Primary Care Provider Raji Salas Unavailable [phone] REASON FOR VISIT pathology/ 3yr colon recall Encounters Encounter Location Date Provider Diagnosis [facility] [address] [place] [address] 04/09/2023 Raji Tellez PLAN OF TREATMENT No Information
--- OUTSIDE RECORDS SUMMARY | 2024-05-03 09:18 | XMS_ITS ---
Author Organization [facility] Address [address] [place] [address] Care Team Providers Care Lamp Shade Sewer Name Role Phone Geovani Sears Primary Care Provider Unav ailable Crow Morris Unavailable [phone] REASON FOR VISIT SD cx 3/4 Encounters Encounter Location Date Provider Diagnosis [address] [address] 05/03/2024 Crow Morris Plan Of Treatment No Information Progress Notes * KETURAHCody MARTINEZ WDOB: [birth year] (74 yo M)Acc No.[id number]:05/03/2024 Patient:?Cody OSEGUERA :1950???Age:74 Y???Sex:Male Address:[address] [place] [address] [place] [address] * * Date:?
--- OUTSIDE RECORDS SUMMARY | 2024-05-03 09:18 | XMS_ITS | Patient Health Record ---
Author Organization [facility] [place] Address [address] [place] [address] Care Team Providers Care Research Administrator Name Role Phone Geovani Sears Primary Care Provider Unav ailable Crow Morris Unavailable [phone] Allergies No Known Allergies Results Component Value [...] Problem Acquired hammer toe of right foot (6792937696602621 ) Other hammer toe(s) (acquired), right foot (M20.41) Active confirmed Problem Acquired hammer toe of left foot (2376171995615646 ) Other hammer toe(s) (acquired), left foot (M20.42) Active confirmed Problem Polyneuropathy due to type 2 diabetes mellitus (714843238) Type 2 diabetes mellitus with diabetic polyneuropathy (E11.42) Active confirmed Vital Signs Blood pressure diastolic 74 mm Hg 02/02/2024 Height 6 ft in 02/02/2024 Blood pressure systolic 138 mm Hg 02/02/2024 Weight 245 lbs 02/02/2024 BMI 33.22 kg/m2 02/02/2024 Procedures Procedure Date Ordered Date Performed Result Body Sit e 20422-SIDUVNX NAIL, 6 OR MORE 11/03/2023 N/A 75782-Fsubdhke Plate 11/03/2023 N/A 63381-FEDL SKIN LESIONS, 2 TO 4 11/03/2023 N/A 24289-TXSTAMO NAIL, 6 OR MORE 02/02/2024 N/A 86821-UHHZ SKIN LESIONS, 2 TO 4 02/02/2024 N/A Encounters Encounter Location Date Provider Diagnosis [address] [address] 11/03/2023 Crow Morris Type 2 diabetes mellitus with diabetic polyneuropathy E11.42 ; Tinea unguium B35.1 ; Ingrown nail L60.0 ; Other hammer toe(s) (acquired), right foot M20.41 and Other hammer toe(s) (acquired), left foot M20.[address] [address] 02/02/2024 Crow Morris Type 2 diabetes mellitus with diabetic polyneuropathy E11.42 and Tinea unguium B35.[address] [address] 05/03/2024 Crow Morris [address] [address] 07/23/2023 Crow Morris Assessments Encounter Date Diagnosis (ICD Code) Assessment [...] Treatment Pending Test Test Name Order Date 48394-BLKPSYV NAIL, 6 OR MORE 11/03/2023 29301-OHNIYUD NAIL, 6 OR MORE 02/02/2024 10286-Pmpygzut Plate 11/03/2023 46375- Debride <25 sq cm 07/23/2018 52842 I&D ABSCESS- SIMPLE,SINGLE 019 03094-MLOM SKIN LESIONS, 2 TO 4 11/03/19 40511-ATGS SKIN LESIONS, 2 TO 4 02/02/20 Insurance Providers Payer Name Payer Address Payer Phone Subscriber Number Group Number Insured Name Patient Relationship to Insured Coverage Start Date Coverage End Date Medicare National Govt [employer] [facility] [address] [place] [address] [id number] Cody Rebollar Self - patient is the insured 7 [employer] Blue [employer] [address] [place] [address] [phone] [id number] Cody Rebollar Self - patient is the insured Medical (General) History Medical History History ICD Code Diabetes mellitus Reflux ( GERD) Arthritis Back,Hip,and Knee pain Broken bones Hiatal hernia Lung disease Neuropathy Mumps Measles Chicken pox Hyperglycemia Vericose Veins CAD (Cholesterol) Diverticulosis Heart disease Hypertension nerve disorder Poor circulation Psoriasis stints elevated heart rate Surgical History Surgery Date(Month/Year) hernia 1992 heel spur 1997 Hernia Repair 2000 Hospitalization History Reason Date(Month/Year) [facility] [place]- Throwing up blood 04/2023
--- OUTSIDE RECORDS SUMMARY | 2024-05-03 09:19 | XMS_ITS | Patient Health Record ---
Author Organization [facility] Address [address] [place] [address] Care Team Providers Care Forestry Instructor Name Role Phone PAOLO TERRELL Primary Care Provider Raji Salas Unavailable [phone] ALLERGIES Allergen (clinical drug ingredient) Drug/Non Drug Allergy documented on EMR Reaction Allergy Type Onset Date Status Aloe Aftersun Unknown Drug Allergy Act alejandro REASON FOR REFERRAL No Information MEDICATIONS Medication SIG (Take, Route, Frequency, Duration) Notes Start Date End Date Status Lasix 40 MG 1 tablet Orally Once a day for 30 day(s) Active Vitamin D (Ergocalciferol) 04572 UNIT as directed Oral twice a week [...] malignant neoplasm of colon (Z12.11) Active confirmed 550099590 Problem History of adenomatous polyp of colon (Z86.010) Active confirmed 111454012 Problem Iron deficiency (E61.1) Active confirmed 10500856 Problem Diverticulosis of large intestine without hemorrhage (K57.30) Active confirmed Diverticular disease of colon (020378502) Problem Preprocedural examination (Z01.818) Active confirmed 561240794027357 Problem Gastroesophageal reflux disease, esophagitis presence not specified (K21.9) Active confirmed 919641504 PLAN OF TREATMENT Pending Test Test Name Order Date GI BIOPSY 10/22/2018 Future Test Test Name Order Date UPPER GI ENDOSCOPY 07/15/2018 COLONOSCOPY 07/15/2018 Insurance Providers Payer Name Payer Address Payer Phone Subscriber Number Group Number Insured Name Patient Relationship to Insured Coverage Start Date Coverage End Date MEDICARE OF [place] [address] [place] [address] [id number] IRENE OSEGUERA Self - patient is the insured [employer] ATTN CLAIMS [address] [place] [phone] [id number] IRENE OSEGUERA Self - patient is the insured MEDICAL (GENERAL) HISTORY Medical History History ICD Code Denies SC,CVA,renal disease NIDDM COPD Colonoscopy in 2006 with mul tiple tubular adenoms removed, 1 with moderate dysplasia GERD--UGI in 2016 with a hiatal hernia Neuropathy in arms and legs HTN Edema Surgical History Surgery Date(Month/Year) Right inguinal hernia repair x 2 Heel spur
--- NOTE | 2024-05-03 11:47 | ED_ITS ---
HPI - GI Bleed General Chief complaint: GI Bleed Stated complaint: Rectal bleeding Time Seen by Provider: 05/03/24 13:52 Related Data Home Medications ?Medication ?Instructions ?Recorded ?Confirmed aspirin 81 mg tablet,delayed 81 mg PO DAILY 04/29/23 05/03/24 release (Adult Aspirin Regimen) cholecalciferol (vitamin D3) 50 50 mcg PO MOWEFR 04/29/23 05/03/24 mcg (2,000 unit) capsule diltiazem HCl 240 mg 240 mg PO DAILY 05/03/24 05/03/24 capsule,extended release 24 hr fluticasone fur. 100 mcg-umeclid 2 inh inhalation DAILY 05/03/24 05/03/24 62.5 mcg-vilant 25 mcg inhalat.powder (Trelegy Ellipta) guaifenesin 1,200 mg tablet, 1,200 mg PO MOWEFR 05/03/24 05/03/24 extended release 12 hr (Mucinex) ipratropium 20 mcg-albuterol 100 1 puff inhalation QID PRN 05/03/24 05/03/24 mcg/actuation mist for inhalation Shortness Of Breath Or Wheezing (Combivent Respimat) meloxicam 15 mg tablet 15 mg PO BID for pain 05/03/24 05/03/24 omeprazole 40 mg capsule,delayed 40 mg PO DAILY@0630 05/03/24 05/03/24 release rosuvastatin 40 mg tablet 40 mg PO DAILY 05/03/24 05/03/24 vitamin B complex 1 tab PO DAILY 05/03/24 05/03/24 Previous Rx's ?Medication ?Instructions ?Recorded metformin 1,000 mg tablet 1,000 mg PO BID 90 days #180 tabs 09/16/23 empagliflozin 10 mg tablet 10 mg PO DAILY #90 tabs 11/10/23 (Jardiance) verapamil 240 mg 24 hr 240 mg PO DAILY #90 caps 12/08/23 capsule,extended release ivabradine 5 mg tablet (Corlanor) 5 mg PO DAILY 90 days #90 tabs 03/28/24 finasteride 5 mg tablet (Proscar) 5 mg PO DAILY 90 days #90 tabs 04/25/24 tamsulosin 0.4 mg capsule (Flomax) 0.4 mg PO BID #180 caps 04/25/24 Allergies Allergy/AdvReac Type Severity Reaction Status Date / Time No Known Allergies Allergy Verified 05/03/24 08:28 [facility] Past Medical History Medical History Diabetes Dyslipidemia Hyperlipidemia Inappropriate sinus tachycardia Surgical History Hx of hernia repair Hx of cardiac cath Family History Family History Paternal Grandfather CAD (coronary artery disease) Father Pulmonary disease Maternal Grandmother Diabetes mellitus Social History Social History Household Members: Children Housing: House Are you a primary pharmacy care coordinator to a significant other at home: No Do you presently have visiting nurse or other home services: No Alcohol intake: current Alcohol intake frequency: holidays/special occasions only Patient Tobacco Use Status: Former Tobacco user Tobacco use type: Cigarette e-Cigarette/Vaping Use: Never Used Second Hand Smoke Exposure: No Advance Directives Date on File: 12/14/23 service: No Current occupational status: retired Cognitive needs: No Hearing needs: No Vision needs: No Physical Exam 2 Vital Signs: Vital Signs: Last Vital Signs Temp 96.8 F 05/06/24 11:41 Pulse 114 H 05/06/24 11:41 Resp 18 05/06/24 11:41 BP 162/72 H 05/06/24 11:41 Pulse Ox 93 05/06/24 11:41 O2 Del Method Room Air 05/06/24 11:41 BMI result Body Mass Index 32.8 Course Course Course Narrative: This is an RME: Additional HPI, ROS, PE not included below will be deferred to primary provider. RME assessment and note performed by: Janine Chen PA-C This is a 70-dtbj-pgp-male, with a hx of neuropathy, COPD, HTN, DM, diverticulitis, who presents to the ER with complaints of rectal bleeding x 3 days. Reporting straight blood in his stool with clots. Abd is soft, nontender. +flatus. Has been here for about 4 hours, has had episode of bloody stool again. He is tachycardic at 110. Plan: Will repeat CBC, add lactic, blood cultures Reevaluation(s) Reevaluation #1: >> duplicate chart, Please see note from primary provider, Dr. Kincaid. Medications Administered Discontinued Medications Generic Name Dose Route Start Last Admin Trade Name Jeannie PRN Reason Stop Dose Admin Diltiazem HCl 120 mg 05/04/24 10:45 05/06/24 09:00 Diltiazem Hcl Cd 120 Mg Cap.Er.Deg PO 120 mg DAILY MIKKI Administration Protocol Finasteride 5 mg 05/04/24 10:45 05/06/24 08:59 Finasteride 5 Mg Tablet PO 5 mg DAILY MIKKI Administration Fluticasone/Umeclidinium/Vilanterol 2 puff 05/05/24 08:00 05/06/24 08:06 Fluticasone/Umeclidinium/Vilanterol 100/62.5 Blst.W.Dev INHALE Not Given RDAILY MIKKI Sodium Chloride 1,000 mls @ 100 mls/hr 05/03/24 14:15 05/05/24 14:32 Ns IVCONT Infused .Q10H MIKKI Infusion Sodium Chloride 1,000 mls @ 999 mls/hr 05/03/24 15:30 05/03/24 17:45 Ns IVCONT 05/03/24 16:30 Infused .Q1H1M MIKKI Infusion Iohexol 100 ml 05/04/24 17:33 05/04/24 17:33 Iohexol 350 Mg/Ml 100 Ml Infus..Btl IV 05/04/24 17:34 80 ml ONCE ONE Administration Omeprazole 40 mg 05/05/24 06:30 05/06/24 06:22 Omeprazole 40 Mg Capsule. PO 40 mg DAILY@629 MIKKI Administration Pantoprazole Sodium 40 mg 05/03/24 14:15 05/03/24 14:27 Pantoprazole Sodium 40 Mg/10 Ml Vial IVPUSH 05/03/24 14:16 40 mg ONCE ONE Administration Pantoprazole Sodium 40 mg 05/04/24 06:30 05/04/24 06:35 Pantoprazole Sodium 40 Mg/10 Ml Vial IVPUSH 40 mg DAILY@0630 MIKKI Administration Sodium Chloride 3 ml 05/04/24 00:00 05/06/24 09:02 0.9 % Sodium Chloride Flush 3 Ml Syringe IVFLUSH 3 ml QSHIFT MIKKI Administration Tamsulosin HCl 0.4 mg 05/04/24 21:00 05/06/24 09:00 Tamsulosin Hcl 0.4 Mg Capsule PO 0.4 mg BID MIKKI Administration Medical Decision Making Lab Data 05/06/24 05:57 05/06/24 05:57 Labs: Lab Results 05/03/24 05/03/24 05/03/24 Range/Units 08:37 14:26 14:27 WBC 10.6 (4.8-10.8) X10*3/uL RBC 5.77 (4.60-5.80) X10*6/uL Hgb 16.6 (14.0-18.0) g/dl Hct 51.7 (42.0-52.0) % MCV 89.6 (80.0-98.0) fL MCH 28.8 (27.0-33.0) pg MCHC 32.1 (31.0-36.0) g/dl RDW 14.6 (11.0-16.0) % Plt Count 249 (160-400) X10*3/uL MPV 9.6 (9.4-12.4) fL Immature Gran % (Auto) 0.4 (0.0-0.4) % Neut % (Auto) 78.2 H (45-73) % Lymph % (Auto) 14.0 L (20-40) % Emery % (Auto) 5.3 (2-11) % Eos % (Auto) 1.3 (0-4) % Baso % (Auto) 0.8 (0-2) % Lymph # (Auto) 1.5 (1.2-4.9) X10*3/uL Emery # (Auto) 0.6 (0.1-1.2) X10*3/uL Eos # (Auto) 0.1 (0.0-0.4) X10*3/uL Baso # (Auto) 0.1 (0.0-0.2) X10*3/uL Abs Immat Gran (auto) 0.04 H (0.00-0.03) X10*3/uL Absolute Neuts (auto) 8.3 (2.0-8.3) x10*3/uL Absolute Nucleated RBC 0.000 (0.0-0.012) X10*3/uL Nucleated RBC % (auto) 0.0 (0.0-0.2) /100WBC PT 11.9 (10.9-12.4) SEC INR 1.0 (0.9-1.1) Sodium 141 (135-145) mmol/L Potassium 4.9 (3.3-5.1) mmol/L Chloride 110 H (96-108) mmol/L Carbon Dioxide 22 (22-29) mmol/L Anion Gap 14 (12-20) BUN 15 (9-16) mg/dL Creatinine 0.93 (0.5-1.4) mg/dL Estim Creat Clear Calc 91.8 Estimated GFR > 60 Random Glucose 155 H (60-115) mg/dL Lactic Acid 3.0 H* (0.5-2.0) mmol/L Calcium 9.3 (8.4-10.2) mg/dL Total Bilirubin 0.5 (0.0-1.0) mg/dL AST 25 (5-37) U/L ALT 23 (0-40) U/L Alkaline Phosphatase 81 (39-117) U/L Total Protein 7.3 (6.5-8.0) g/dL Albumin 4.2 (3.5-5.0) g/dL Stool Occult Blood (NEGATIVE) Blood Type O Positive Antibody Screen NEGATIVE 05/03/24 Range/Units 14:28 WBC (4.8-10.8) X10*3/uL RBC (4.60-5.80) X10*6/uL Hgb (14.0-18.0) g/dl Hct (42.0-52.0) % MCV (80.0-98.0) fL MCH (27.0-33.0) pg MCHC (31.0-36.0) g/dl RDW (11.0-16.0) % Plt Count (160-400) X10*3/uL MPV (9.4-12.4) fL Immature Gran % (Auto) (0.0-0.4) % Neut % (Auto) (45-73) % Lymph % (Auto) (20-40) % Emery % (Auto) (2-11) % Eos % (Auto) (0-4) % Baso % (Auto) (0-2) % Lymph # (Auto) (1.2-4.9) X10*3/uL Emery # (Auto) (0.1-1.2) X10*3/uL Eos # (Auto) (0.0-0.4) X10*3/uL Baso # (Auto) (0.0-0.2) X10*3/uL Abs Immat Gran (auto) (0.00-0.03) X10*3/uL Absolute Neuts (auto) (2.0-8.3) x10*3/uL Absolute Nucleated RBC (0.0-0.012) X10*3/uL Nucleated RBC % (auto) (0.0-0.2) /100WBC PT (10.9-12.4) SEC INR (0.9-1.1) Sodium (135-145) mmol/L Potassium (3.3-5.1) mmol/L Chloride (96-108) mmol/L Carbon Dioxide (22-29) mmol/L Anion Gap (12-20) BUN (9-16) mg/dL Creatinine (0.5-1.4) mg/dL Estim Creat Clear Calc Estimated GFR Random Glucose (60-115) mg/dL Lactic Acid (0.5-2.0) mmol/L Calcium (8.4-10.2) mg/dL Total Bilirubin (0.0-1.0) mg/dL AST (5-37) U/L ALT (0-40) U/L Alkaline Phosphatase (39-117) U/L Total Protein (6.5-8.0) g/dL Albumin (3.5-5.0) g/dL Stool Occult Blood POSITIVE (NEGATIVE) Blood Type Antibody Screen Discharge Plan Discharge Clinical Impression: GI (gastrointestinal bleed), Acidosis, lactic Patient Disposition: Admitted As Inpatient Interventions: Admission Worksheet (ED) Last Done: 05/04/24 14:56 Discharge Date/Time: 05/04/24 15:09
--- NOTE | 2024-05-03 14:23 | ED_ITS ---
HPI - GI Bleed General Chief complaint: GI Bleed Stated complaint: Rectal bleeding Time Seen by Provider: 05/03/24 13:52 Source: patient Limitations: no limitations History of Present Illness HPI Narrative: This is a 74 years old male presented to emergency department with a chief complaint of rectal bleeding for about 3 days initially was bright red and now is more in the dark and black. Patient has history of prior rectal bleeding he had a colonoscopy in March 2023 which showed diverticulosis. MD complaint: blood streaked stool and gross hematochezia Onset (ago): day(s) (3) Pain Consistency: constant Severity: moderate Relieving factors: none Exacerbating factors: none Context: history of GI bleed Associated symptoms: denies other symptoms Related Data Home Medications ?Medication ?Instructions ?Recorded ?Confirmed ipratropium 20 mcg-albuterol 100 1 puff inhalation Q6H PRN 01/16/20 04/28/24 mcg/actuation mist for inhalation Shortness Of Breath Or Wheezing (Combivent Respimat) vitamin B complex (B 1 tab PO DAILY 08/20/21 04/28/24 Complex-Vitamin B12 tablet) tacrolimus 0.1 % topical ointment topical 10/20/22 04/28/24 budesonide 160 mcg-glycopyr 9 2 inh inhalation BID 03/30/23 04/28/24 mcg-formot 4.8 mcg/actuation HFA inhaler (Breztri Aerosphere) aspirin 81 mg tablet,delayed 81 mg PO DAILY 04/29/23 04/28/24 release (Adult Aspirin Regimen) betamethasone, augmented 0.05 % 1 appl topical BID 04/29/23 04/28/24 topical cream cholecalciferol (vitamin D3) 50 50 mcg PO DAILY 04/29/23 04/28/24 mcg (2,000 unit) capsule furosemide 40 mg tablet (Lasix) 40 mg PO DAILY 07/08/23 04/28/24 Previous Rx's ?Medication ?Instructions ?Recorded rosuvastatin 40 mg tablet 40 mg PO DAILY #90 tabs 04/24/23 meloxicam 15 mg tablet 15 mg PO DAILY PRN for pain #90 07/22/23 tabs duloxetine 20 mg capsule,delayed 20 mg PO DAILY #90 caps 09/16/23 release metformin 1,000 mg tablet 1,000 mg PO BID 90 days #180 tabs 09/16/23 empagliflozin 10 mg tablet 10 mg PO DAILY #90 tabs 11/10/23 (Jardiance) verapamil 240 mg 24 hr 240 mg PO DAILY #90 caps 12/08/23 capsule,extended release omeprazole 40 mg capsule,delayed 40 mg PO DAILY #90 caps 12/21/23 release ivabradine 5 mg tablet (Corlanor) 5 mg PO DAILY 90 days #90 tabs 03/28/24 finasteride 5 mg tablet (Proscar) 5 mg PO DAILY 90 days #90 tabs 04/25/24 sulfamethoxazole 800 1 tab PO BID #10 tabs 04/25/24 mg-trimethoprim 160 mg tablet (Bactrim DS) tamsulosin 0.4 mg capsule (Flomax) 0.4 mg PO BID #180 caps 04/25/24 metronidazole 500 mg tablet 500 mg PO Q8H 7 days #21 tabs 05/02/24 Allergies Allergy/AdvReac Type Severity Reaction Status Date / Time No Known Allergies Allergy Verified 05/03/24 08:28 Review of Systems 2 Constitutional: Constitutional: Reports no additional constitutional complaints ENT: Reports system reviewed and no additional complaints, except as documented Cardiovascular: Cardiovascular: Reports no additional cardiovascular complaints [facility] Past Medical History Attestation statement: The following information was validated with the patient. [facility] Narrative: Diverticulosis of the colon, diabetes Medical History Diabetes Dyslipidemia Hyperlipidemia Inappropriate sinus tachycardia Surgical History Hx of hernia repair Hx of cardiac cath Family History Family History Paternal Grandfather CAD (coronary artery disease) Father Pulmonary disease Maternal Grandmother Diabetes mellitus Social History Social History Household Members: Children Housing: House Do you presently have visiting nurse or other home services: No Alcohol intake: current Alcohol intake frequency: holidays/special occasions only Patient Tobacco Use Status: Former Tobacco user Smoked in Last 30 Days: No e-Cigarette/Vaping Use: Never Used Second Hand Smoke Exposure: No Use of substances other than those prescribed or required for medical reasons: No Advance Directives: Yes Advance Directives on File: Yes Advance Directives Date on File: 12/14/23 Do you have a plan to hurt others: No Plan service: No Current occupational status: retired Cognitive needs: No Hearing needs: No Vision needs: No Physical Exam 2 Vital Signs: Vital Signs: Last Vital Signs Temp 97.3 F 05/03/24 16:13 Pulse 90 05/03/24 16:13 Resp 12 05/03/24 16:13 BP 117/54 L 05/03/24 16:13 Pulse Ox 97 05/03/24 16:13 O2 Del Method Room Air 05/03/24 16:13 BMI result Body Mass Index 32.8 Const: General: cooperative Nutritional Appearance: well nourished O rientation/consciousness: patient oriented x3 Limitations: no limitations HEENT: Head: Yes normal to inspection General nose exam: Normal external nose present Face and sinus: Yes normal facial exam Mouth: Normal oral and palatal mucosa present Neck: Neck: Yes normal visual inspection and Yes full ROM Chest: Chest palpation & inspection: normal inspection of the chest Resp: Effort & Inspection: normal respiratory effort Cardio: Jugular venous distension: no JVD Rate: regular rate Rhythm: r egular rhythm GI: Inspection: Yes normal to inspection Palpation (GI): Soft to palpation Percussion: Yes normal to percussion Rectal Exam - Male: Yes other (Blood is present in the rectal exam) : General: Yes no CVA tenderness Back/Spine/Pelvis: Back: no CVA tenderness Cervical Spine: normal cervical lordosis Skin: General skin exam: no rashes or lesions noted Lesions: no lesions Neuro: General: patient oriented x3 Course Reevaluation(s) Reevaluation #1: Patient rectal exam showed dark blood, no consistent with a diverticular bleeding, he also has a lactic acidosis lactic history this could be related to metformin there is no evidence of sepsis. I discussed the case with the hostess party sales representative Dr. Tellez . It is reasonable to admit the patient serial cbc Time: 16:15 Medications Administered Generic Name Dose Route Start Last Admin Trade Name Freq PRN Reason Stop Dose Admin Sodium Chloride 1,000 mls @ 100 mls/hr 05/03/24 14:15 05/03/24 14:28 Ns IVCONT 100 mls/hr .Q10H MIKKI Administration Sodium Chloride 1,000 mls @ 999 mls/hr 05/03/24 15:30 05/03/24 15:40 Ns IVCONT 05/03/24 16:30 999 mls/hr .Q1H1M MIKKI Administration Discontinued Medications Generic Name Dose Route Start Last Admin Trade Name Freq PRN Reason Stop Dose Admin Pantoprazole Sodium 40 mg 05/03/24 14:15 05/03/24 14:27 Pantoprazole Sodium 40 Mg/10 Ml Vial IVPUSH 05/03/24 14:16 40 mg ONCE ONE Administration Medical Decision Making Medical Decision Making [facility] Narrative: Patient presented with rectal bleeding we will blood work administer of the fluid Differential Diagnosis Differential Diagnoses: The differential diagnosis associated with the presentation includes Peptic ulcer disease/duodenal ulcer/diverticular bleeding Admission/Observation Consideration of admission/observation: Escalation of care including admission/observation considered Consult Healthcare Provider Management of the patient was discussed with: Hospitalist and Transit Survey Worker Lab Data [facility] Lab Attestation statement: I reviewed the patient's lab results. 05/03/24 08:37 05/03/24 08:37 Labs: Lab Results 05/03/24 05/03/24 05/03/24 Range/Units 08:37 14:26 14:27 WBC 10.6 (4.8-10.8) X10*3/uL RBC 5.77 (4.60-5.80) X10*6/uL Hgb 16.6 (14.0-18.0) g/dl Hct 51.7 (42.0-52.0) % MCV 89.6 (80.0-98.0) fL MCH 28.8 (27.0-33.0) pg MCHC 32.1 (31.0-36.0) g/dl RDW 14.6 (11.0-16.0) % Plt Count 249 (160-400) X10*3/uL MPV 9.6 (9.4-12.4) fL Immature Gran % (Auto) 0.4 (0.0-0.4) % Neut % (Auto) 78.2 H (45-73) % Lymph % (Auto) 14.0 L (20-40) % [place] % (Auto) 5.3 (2-11) % Eos % (Auto) 1.3 (0-4) % Baso % (Auto) 0.8 (0-2) % Lymph # (Auto) 1.5 (1.2-4.9) X10*3/uL [place] # (Auto) 0.6 (0.1-1.2) X10*3/uL Eos # (Auto) 0.1 (0.0-0.4) X10*3/uL Baso # (Auto) 0.1 (0.0-0.2) X10*3/uL Abs Immat Gran (auto) 0.04 H (0.00-0.03) X10*3/uL Absolute Neuts (auto) 8.3 (2.0-8.3) x10*3/uL Absolute Nucleated RBC 0.000 (0.0-0.012) X10*3/uL Nucleated RBC % (auto) 0.0 (0.0-0.2) /100WBC PT 11.9 (10.9-12.4) SEC INR 1.0 (0.9-1.1) Sodium 141 (135-145) mmol/L Potassium 4.9 (3.3-5.1) mmol/L Chloride 110 H (96-108) mmol/L Carbon Dioxide 22 (22-29) mmol/L Anion Gap 14 (12-20) BUN 15 (9-16) mg/dL Creatinine 0.93 (0.5-1.4) mg/dL Estim Creat Clear Calc 91.8 Estimated GFR > 60 Random Glucose 155 H (60-115) mg/dL Lactic Acid 3.0 H* (0.5-2.0) mmol/L Calcium 9.3 (8.4-10.2) mg/dL Total Bilirubin 0.5 (0.0-1.0) mg/dL AST 25 (5-37) U/L ALT 23 (0-40) U/L Alkaline Phosphatase 81 (39-117) U/L Total Protein 7.3 (6.5-8.0) g/dL Albumin 4.2 (3.5-5.0) g/dL Stool Occult Blood (NEGATIVE) Blood Type O Positive Antibody Screen NEGATIVE 05/03/24 Range/Units 14:28 WBC (4.8-10.8) X10*3/uL RBC (4.60-5.80) X10*6/uL Hgb (14.0-18.0) g/dl Hct (42.0-52.0) % MCV (80.0-98.0) fL MCH (27.0-33.0) pg MCHC (31.0-36.0) g/dl RDW (11.0-16.0) % Plt Count (160-400) X10*3/uL MPV (9.4-12.4) fL Immature Gran % (Auto) (0.0-0.4) % Neut % (Auto) (45-73) % Lymph % (Auto) (20-40) % [place] % (Auto) (2-11) % Eos % (Auto) (0-4) % Baso % (Auto) (0-2) % Lymph # (Auto) (1.2-4.9) X10*3/uL [place] # (Auto) (0.1-1.2) X10*3/uL Eos # (Auto) (0.0-0.4) X10*3/uL Baso # (Auto) (0.0-0.2) X10*3/uL Abs Immat Gran (auto) (0.00-0.03) X10*3/uL Absolute Neuts (auto) (2.0-8.3) x10*3/uL Absolute Nucleated RBC (0.0-0.012) X10*3/uL Nucleated RBC % (auto) (0.0-0.2) /100WBC PT (10.9-12.4) SEC INR (0.9-1.1) Sodium (135-145) mmol/L Potassium (3.3-5.1) mmol/L Chloride (96-108) mmol/L Carbon Dioxide (22-29) mmol/L Anion Gap (12-20) BUN (9-16) mg/dL Creatinine (0.5-1.4) mg/dL Estim Creat Clear Calc Estimated GFR Random Glucose (60-115) mg/dL Lactic Acid (0.5-2.0) mmol/L Calcium (8.4-10.2) mg/dL Total Bilirubin (0.0-1.0) mg/dL AST (5-37) U/L ALT (0-40) U/L Alkaline Phosphatase (39-117) U/L Total Protein (6.5-8.0) g/dL Albumin (3.5-5.0) g/dL Stool Occult Blood POSITIVE (NEGATIVE) Blood Type Antibody Screen Independent Historian Clinical information obtained from an independent historian. History obtained from or confirmed by: Spouse External Record Review External record reviewed: Inpatient record and Office record Discharge Plan Discharge Clinical Impression: Acidosis, lactic GI (gastrointestinal bleed) Qualifiers: GI bleed type/associated pathology: unspecified gastrointestinal hemorrhage type Qualified Code(s): K92.2 - Gastrointestinal hemorrhage, unspecified Patient Disposition: Admitted As Inpatient Print Language: Congolese
[2024-05-03] MEDS: Pantoprazole Sodium 40 MG/10 ML VIAL IVPUSH (14:27)
[2024-05-03] MEDS: 0.9 % Sodium Chloride 1,000 ML 100 ML IVCONT ×2 (14:28→23:17)
[2024-05-03 14:40] LABS: OBS Int Ctl Valid YES; OBS1 POSITIVE (NEGATIVE)
[2024-05-03 14:43] LABS: Prothrombin Time 11.9 SEC (10.9-12.4)
[2024-05-03] MEDS: 0.9 % Sodium Chloride 1,000 ML 999 ML IVCONT (15:40)
--- NOTE | 2024-05-03 16:29 | P.HPHOSP_ITS ---
History of Present Illness Date of Service: 05/03/24 Attending physician on admission: Rhys Madrid Chief Complaint: Rectal bleeding Pt is a 74-year-old male with a PMH significant for?HTN, HLD, [id number] type 2 diabetes, BPH, and GERD who presents to the ED for evaluation of rectal bleeding x3 days. Pt states he initially noticed bright red blood per rectum 3 days ago x1 episode. Since has noticed a steady stream of maroon and black-colored stool often with dark-colored clots. Minimal abdominal cramping and discomfort. Some nausea this morning but no vomiting. Has felt weakness in his legs, though this has been ongoing for the past few months and is currently being worked up outpatient by vascular. Pt reports bleeding has been significant since Thursday morning until 13:00 today. Denies chest pain/pressure, palpitations. No acid reflux symptoms. Denies lightheadedness or dizziness. Denies shortness or breath, difficulty breathing, cough. Of note, pt has a hx of rectal bleeding on 03/30/2023 thought to be secondary to diverticulosis. In the ED pt was tachycardic to 110 and initially hypertensive at 156/104. Labs were significant for lactic acid 3.0 and stool positive for occult blood, otherwise grossly unremarkable and around baseline pt. No leukocytosis. Stable H&H 16.6/51.7. No significant electrolyte abnormalities. Renal function WNL. Hepatic function baseline. Pt was treated with Protonix and IVF. Pt will be admitted to the hospital under observation for treatment further evaluation of rectal bleeding concerning for GI bleed. Review of Systems 2 Review of Systems: Negative except for that which is stated in the [facility] Medical History Diabetes Dyslipidemia Hyperlipidemia Inappropriate sinus tachycardia Family History Paternal Grandfather CAD (coronary artery disease) Father Pulmonary disease Maternal Grandmother Diabetes mellitus Surgical History Hx of hernia repair Hx of cardiac cath Social History Household Members: Children Housing: House Do you presently have visiting nurse or other home services: No Alcohol intake: current Alcohol intake frequency: holidays/special occasions only Patient Tobacco Use Status: Former Tobacco user Smoked in Last 30 Days: No e-Cigarette/Vaping Use: Never Used Second Hand Smoke Exposure: No Use of substances other than those prescribed or required for medical reasons: No Advance Directives: Yes Advance Directives on File: Yes Advance Directives Date on File: 12/14/23 Do you have a plan to hurt others: No Plan service: No Current occupational status: retired Cognitive needs: No Hearing needs: No Vision needs: No Meds Allergies Allergy/AdvReac Type Severity Reaction Status Date / Time No Known Allergies Allergy Verified 05/03/24 08:28 Active Medications: Current Medications Sodium Chloride (Ns) 1,000 mls @ 100 mls/hr IVCONT .Q10H [facility] Last Admin: 05/03/24 14:28 Dose: 100 mls/hr Sodium Chloride (Ns) 1,000 mls @ 999 mls/hr IVCONT .Q1H1M [facility] Stop: 05/03/24 16:30 Last Admin: 05/03/24 15:40 Dose: 999 mls/hr Home Medications ?Medication ?Instructions ?Recorded ?Confirmed ?Last Taken ?Type vitamin B complex (B 1 tab PO DAILY 08/20/21 04/28/24 Unknown History Complex-Vitamin B12 tablet) aspirin 81 mg tablet,delayed 81 mg PO DAILY 04/29/23 04/28/24 Unknown History release (Adult Aspirin Regimen) cholecalciferol (vitamin D3) 50 50 mcg PO DAILY 04/29/23 04/28/24 Unknown History mcg (2,000 unit) capsule furosemide 40 mg tablet (Lasix) 40 mg PO DAILY 07/08/23 04/28/24 Unknown History fluticasone fur. 100 mcg-umeclid 2 inh inhalation DAILY 05/03/24 Unknown History 62.5 mcg-vilant 25 mcg inhalat.powder (Trelegy Ellipta) Physical Exam 2 Vital Signs and Narrative: Vital Signs: Last Vital Signs Temp 97.3 F 05/03/24 16:13 Pulse 90 05/03/24 16:13 Resp 12 05/03/24 16:13 BP 117/54 L 05/03/24 16:13 Pulse Ox 97 05/03/24 16:13 O2 Del Method Room Air 05/03/24 16:13 BMI result Body Mass Index 32.8 General: AOx3, no acute distress Resp: CTA bilaterally CVS: S1, S2, RRR GI: +BS, NT, no distention Skin: Warm, dry Neuro: Cranial nerves II-XII grossly intact bilaterally. Motor grossly intact bilaterally Extremities: No edema Psych: Appropriate affect Results Labs 05/03/24 08:37 05/03/24 08:37 Labs: Laboratory Results - last 24 hr 05/03/24 05/03/24 05/03/24 08:37 14:26 14:27 MCV 89.6 MCH 28.8 MCHC 32.1 RDW 14.6 Plt Count 249 MPV 9.6 Immature Gran % (Auto) 0.4 Neut % (Auto) 78.2 H Lymph % (Auto) 14.0 L [place] % (Auto) 5.3 Eos % (Auto) 1.3 Baso % (Auto) 0.8 Lymph # (Auto) 1.5 [place] # (Auto) 0.6 Eos # (Auto) 0.1 Baso # (Auto) 0.1 Abs Immat Gran (auto) 0.04 H Absolute Neuts (auto) 8.3 Absolute Nucleated RBC 0.000 Nucleated RBC % (auto) 0.0 PT 11.9 INR 1.0 Anion Gap 14 Estim Creat Clear Calc 91.8 Estimated GFR > 60 Random Glucose 155 H Lactic Acid 3.0 H* Calcium 9.3 Total Bilirubin 0.5 AST 25 ALT 23 Alkaline Phosphatase 81 Total Protein 7.3 Albumin 4.2 Stool Occult Blood Blood Type O Positive Antibody Screen NEGATIVE 05/03/24 14:28 MCV MCH MCHC RDW Plt Count MPV Immature Gran % (Auto) Neut % (Auto) Lymph % (Auto) [place] % (Auto) Eos % (Auto) Baso % (Auto) Lymph # (Auto) [place] # (Auto) Eos # (Auto) Baso # (Auto) Abs Immat Gran (auto) Absolute Neuts (auto) Absolute Nucleated RBC Nucleated RBC % (auto) PT INR Anion Gap Estim Creat Clear Calc Estimated GFR Random Glucose Lactic Acid Calcium Total Bilirubin AST ALT Alkaline Phosphatase Total Protein Albumin Stool Occult Blood POSITIVE Blood Type Antibody Screen Assessment and Plan (1) Rectal bleeding: Status: Acute Plan Pt is a 74-year-old male with a PMH significant for?HTN, HLD, [id number] type 2 diabetes, BPH, and GERD who presents to the ED for evaluation of rectal bleeding x3 days. Pt will be admitted to the hospital under observation for treatment further evaluation of rectal bleeding concerning for GI bleed. Rectal bleeding Pt with bright red blood per rectum x1, maroon and black stool with clots since then, stool heme+ Minimal abd pain/discomfort; nausea this morning but no vomiting, denies lightheadedness/dizziness Hx of GI bleed last year attributed to diverticulosis H&H stable at 16.6/51.7 Will treat with Protonix IV GI consult Clear liquid diet now, NPO past midnight for possible scoping Monitor H&H Acute lactic acidosis Lactic acid 3.0 at time of presentation Secondary to metformin use, not sepsis Trend lactic acid HTN Continue verapamil Non-insulin dependent type 2 diabetes Hold metformin Sliding-scale insulin Diabetic diet once no longer NPO BPH Continue tamsulosin Full Code Attending:?Dr. Madrid DVT Prophylaxis: Pneumatic compression due to GI bleed concerns Pt will be admitted to the hospital under observation treatment and evaluation rectal bleeding concerning for GI bleed. Pt will have close monitoring of H&H as well as specialist consultation with GI for possible procedure in the morning. Quality Stroke Does the patient have a stroke diagnosis?: No VTE Prior VTE?: No VTE Risk Level:: Medical - moderate - high VTE Device Contraindication: N/A - Device Ordered VTE Drug Contraindication: Treatment Not Indicated
[2024-05-03 16:35] LABS: Reflex Lactate? Lactic Acid Added
[2024-05-03 17:57] LABS: MANUAL DIFF FLAG NO
[2024-05-03 18:03] LABS: Basophils Absolute Auto 0.1 X10*3/uL (0.0-0.2); Basophils Percent Auto 0.9 % (0-2); Eosinophils Absolute Auto 0.1 X10*3/uL (0.0-0.4); Hematocrit 45.8 % (42.0-52.0); Hemoglobin 14.3 g/dl (14.0-18.0); Imm Gran Abs Auto 0.04 X10*3/uL (0.00-0.03); Imm Gran Pct Auto 0.4 % (0.0-0.4); Lymphocytes Absolute Auto 1.6 X10*3/uL (1.2-4.9); Lymphocytes Percent Auto 14.7 % (20-40); Mean Corpuscular HGB Conc 31.2 g/dl (31.0-36.0); Mean Corpuscular Hemoglobin 28.5 pg (27.0-33.0); Mean Corpuscular Volume 91.2 fL (80.0-98.0); Mean Platelet Volume 9.9 fL (9.4-12.4); Monocytes Absolute Auto 0.6 X10*3/uL (0.1-1.2); Monocytes Percent Auto 5.6 % (2-11); Neutrophils Absolute Auto 8.1 x10*3/uL (2.0-8.3); Neutrophils Percent Auto 77.4 % (45-73); Platelet Count 214 X10*3/uL (160-400); Red Blood Count 5.02 X10*6/uL (4.60-5.80); Red Cell Distribution Width 14.6 % (11.0-16.0); White Blood Count 10.5 X10*3/uL (4.8-10.8)
[2024-05-03 18:13] LABS: ~Lactic Acid-LAB USE ONLY 1.6 mmol/L (0.5-2.0)
--- NOTE | 2024-05-03 18:51 | PHA.MEDREC ---
Addendum entered by Zain Alfaro [facility] 05/03/24 19:05: med rec reviewed Original Note: Pharmacy Consult ? Medication Reconciliation Pharmacy has completed the medication reconciliation. Spoke with patient and he had a list on hand that I was able to confirm the med list with. He confirmed he does not take the Furosemide 40mg tab and states he has not had it in about a year. He confirmed he takes Mucinex, Vitamin D3 and Vitamin B Complex on Mondays, Wednesdays and Fridays and confirmed he last took them Tuesday 05/02. He confirmed he started the Metronidazole 500mg tab yesterday (05/02). He states he is filling all his medications via mail order from [facility]. He confirmed he took all his morning medications this morning.
--- NOTE | 2024-05-03 22:20 | PC.NURSE ---
pt is sleeping at this time, no sign of distress.
[2024-05-04] VITALS (10 sets, daily range): BP systolic 111–154; BP diastolic 46–69; PULSE 90–100; RESP 14–20; TEMP 36.4–36.7; O2SAT 92–98
[2024-05-04 05:50] LABS: MANUAL DIFF FLAG NO
[2024-05-04 06:11] LABS: Anion Gap 9 (12-20); Basophils Absolute Auto 0.1 X10*3/uL (0.0-0.2); Basophils Percent Auto 0.9 % (0-2); Blood Urea Nitrogen 12 mg/dL (9-16); Calcium 8.2 mg/dL (8.4-10.2); Carbon Dioxide 22 mmol/L (22-29); Chloride 113 mmol/L (96-108); Creatinine Clr Calc Pharmacy 123.7; Eosinophils Absolute Auto 0.2 X10*3/uL (0.0-0.4); Eosinophils Percent Auto 2.4 % (0-4); Estimated Glomerular Filt Rate > 60; Glucose Random 106 mg/dL (60-115); Hematocrit 42.9 % (42.0-52.0); Hemoglobin 13.4 g/dl (14.0-18.0); Imm Gran Abs Auto 0.04 X10*3/uL (0.00-0.03); Imm Gran Pct Auto 0.4 % (0.0-0.4); Lymphocytes Absolute Auto 1.7 X10*3/uL (1.2-4.9); Mean Corpuscular HGB Conc 31.2 g/dl (31.0-36.0); Mean Corpuscular Hemoglobin 28.7 pg (27.0-33.0); Mean Corpuscular Volume 91.9 fL (80.0-98.0); Mean Platelet Volume 10.1 fL (9.4-12.4); Monocytes Absolute Auto 0.8 X10*3/uL (0.1-1.2); Monocytes Percent Auto 8.9 % (2-11); Neutrophils Absolute Auto 6.1 x10*3/uL (2.0-8.3); Neutrophils Percent Auto 68.4 % (45-73); Platelet Count 203 X10*3/uL (160-400); Potassium 4.1 mmol/L (3.3-5.1); Red Blood Count 4.67 X10*6/uL (4.60-5.80); Red Cell Distribution Width 14.8 % (11.0-16.0); Sodium 140 mmol/L (135-145)
[2024-05-04] MEDS: Pantoprazole Sodium 40 MG/10 ML VIAL IVPUSH (06:35)
--- NOTE | 2024-05-04 10:47 | PM.EVENT ---
Event Note Date of Service: 05/04/24 Event Note: GI Consult-Full note dictated Imp: Suspected UGI Bleed Rec: EGD today, IV PPI, F/U Hgb. Thanks Time Spent With Patient Time: Total time managing care of this patient today ____ minutes.
[2024-05-04] MEDS: 0.9 % Sodium Chloride 1,000 ML 100 ML IVCONT ×2 (11:15→19:55)
[2024-05-04] MEDS: dilTIAZem HCL CD 120 MG CAP.ER.DEG PO (11:21)
[2024-05-04] MEDS: Finasteride 5 MG TABLET PO (11:21)
--- NOTE | 2024-05-04 11:34 | PC.NURSE ---
Assumed care of this patient at 1100, patient's fluids restarted, pt is aware he is NPOwaiting for endoscopy, states he's been going to the BR every few hours, BMs are closer to a fruit punch color now, were more maroon in color last night.
--- NOTE | 2024-05-04 11:53 | PC.NURSE ---
Report given to Angela in [facility].
--- NOTE | 2024-05-04 12:14 | MHC.CM.PN ---
CM met with Patient at bedside, in the ED, and addressed OSORIO with him (original was given to Patient and a copy will be placed on the chart). 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 Patient's goal is home/self care and CM has initiated and will follow for dc planning. PCP is Dr. Geovani Samayoa and HCP is Daughter/Kamilah. One of Patient's children will transport to home at dc.
--- NOTE | 2024-05-04 14:30 | HO.PM.IMPN ---
Subjective Subjective Date of Service: 05/04/24 Interval History: Seen and evaluated this morning reports blood with stool Hb stable no other events Review of Systems Review of Systems: Yes all other systems are reviewed and are negative Physical Exam Vital Signs: Vital Signs: Last Vital Signs Temp 97.9 F 05/04/24 13:48 Pulse 97 05/04/24 13:48 Resp 14 05/04/24 13:48 BP 150/58 H 05/04/24 13:48 Pulse Ox 96 05/04/24 13:48 O2 Del Method Room Air 05/04/24 13:48 BMI result Body Mass Index 32.8 Const: Other: Constitutional : interactive, not in distress Cardiovascular : no JVP, no lower extremity edema Respiratory : bilateral chest movement, not in resp distress Gastrointestinal: soft, lax, Non tender Skin : Warm, Dry Neurological : Alert & oriented , No focal deficit Objective Data Active Medications Acetaminophen (Acetaminophen 325 Mg Tablet) 650 mg PO Q6H PRN PRN Reason: Pain, Mild 1-3,fever,headache Albuterol/Ipratropium (Albuterol/Iprat 2.5/0.5mg 3 Ml Ampul.Neb) 3 ml INHALE QID PRN PRN Reason: Shortness Of Breath Or Wheezing Calcium Carbonate (Calcium Carbonate 750 Mg Tab.Chew) 750 mg PO Q4H PRN PRN Reason: Heartburn Diltiazem HCl (Diltiazem Hcl Cd 120 Mg Cap.Er.Deg) 120 mg PO DAILY [facility]; Protocol Last Admin: 05/04/24 11:21 Dose: 120 mg Documented By: JEEVAN Finasteride (Finasteride 5 Mg Tablet) 5 mg PO DAILY [facility] Last Admin: 05/04/24 11:21 Dose: 5 mg Documented By: JEEVAN Fluticasone/Umeclidinium/Vilanterol (Fluticasone/Umeclidinium/Vilanterol 100/62.5/25 Blst.W.Dev) 2 puff INHALE RDAILY [facility] Sodium Chloride (Ns) 1,000 mls @ 100 mls/hr IVCONT .Q10H [facility] Last Admin: 05/04/24 11:15 Dose: 100 mls/hr Documented By: JEEVAN Magnesium Hydroxide (Milk Of Magnesia 30 Ml Oral.Susp) 30 ml PO DAILY PRN PRN Reason: Constipation Melatonin (Melatonin 3 Mg Tablet) 6 mg PO BEDTIME PRN PRN Reason: Insomnia Ondansetron HCl (Ondansetron Hcl 4 Mg/2 Ml Vial) 4 mg IVPUSH Q8H PRN PRN Reason: Nausea and Vomiting Pantoprazole Sodium (Pantoprazole Sodium 40 Mg/10 Ml Vial) 40 mg IVPUSH DAILY@0630 [facility] Last Admin: 05/04/24 06:35 Dose: 40 mg Documented By: AARON Sodium Chloride (0.9 % Sodium Chloride Flush 3 Ml Syringe) 3 ml IVFLUSH QSHIFT [facility] Last Admin: 05/04/24 07:19 Dose: Not Given Documented By: JEEVAN Non-Admin Reason: IV Running Tamsulosin HCl (Tamsulosin Hcl 0.4 Mg Capsule) 0.4 mg PO BID [facility] Labs 05/04/24 04:45 05/04/24 04:45 Labs: Laboratory Results - last 24 hr 05/03/24 05/03/24 05/03/24 14:26 14:27 14:28 MCV MCH MCHC RDW Plt Count MPV Immature Gran % (Auto) Neut % (Auto) Lymph % (Auto) Mora % (Auto) Eos % (Auto) Baso % (Auto) Lymph # (Auto) Mora # (Auto) Eos # (Auto) Baso # (Auto) Abs Immat Gran (auto) Absolute Neuts (auto) Absolute Nucleated RBC Nucleated RBC % (auto) PT 11.9 INR 1.0 Anion Gap Estim Creat Clear Calc Estimated GFR Random Glucose Lactic Acid 3.0 H* Lactic Acid F/U @ 2Hr Calcium Stool Occult Blood POSITIVE Blood Type O Positive Antibody Screen NEGATIVE 05/03/24 05/04/24 17:51 04:45 MCV 91.2 91.9 MCH 28.5 28.7 MCHC 31.2 31.2 RDW 14.6 14.8 Plt Count 214 203 MPV 9.9 10.1 Immature Gran % (Auto) 0.4 0.4 Neut % (Auto) 77.4 H 68.4 Lymph % (Auto) 14.7 L 19.0 L Mora % (Auto) 5.6 8.9 Eos % (Auto) 1.0 2.4 Baso % (Auto) 0.9 0.9 Lymph # (Auto) 1.6 1.7 Mora # (Auto) 0.6 0.8 Eos # (Auto) 0.1 0.2 Baso # (Auto) 0.1 0.1 Abs Immat Gran (auto) 0.04 H 0.04 H Absolute Neuts (auto) 8.1 6.1 Absolute Nucleated RBC 0.000 0.000 Nucleated RBC % (auto) 0.0 0.0 PT INR Anion Gap 9 L Estim Creat Clear Calc 123.7 Estimated GFR > 60 Random Glucose 106 Lactic Acid Lactic Acid F/U @ 2Hr 1.6 Calcium 8.2 L D Stool Occult Blood Blood Type Antibody Screen Assessment and Plan (1) Rectal bleeding: Status: Acute (2) Acidosis, lactic: Status: Acute (3) GI (gastrointestinal bleed): Status: Acute Plan Pt is a 74-year-old male with a PMH significant for?HTN, HLD, [id number] type 2 diabetes, BPH, and GERD who presents to the ED for evaluation of rectal bleeding x3 days. Pt will be admitted to the hospital under observation for treatment further evaluation of rectal bleeding concerning for GI bleed. Rectal bleeding maroon and black stool with clots, stool heme+ Minimal abd pain/discomfort Hx of GI bleed last year attributed to diverticulosis H&H dropped to 13.4 Protonix IV GI consult for EGD today Monitor H&H Acute lactic acidosis Secondary to metformin use, not sepsis resolved HTN Continue verapamil Non-insulin dependent type 2 diabetes Hold metformin Sliding-scale insulin Diabetic diet once no longer NPO BPH Continue tamsulosin Full Code DVT Prophylaxis: Pneumatic compression due to GI bleed concerns Quality Stroke Does the patient have a stroke diagnosis?: No VTE Prior VTE?: No VTE Risk Level:: Medical - moderate - high VTE Device Contraindication: N/A - Device Ordered VTE Drug Contraindication: Treatment Not Indicated
--- NOTE | 2024-05-04 15:06 | PC.NURSE ---
Patient got bed assignment while still in [facility], belongings brought to 3rd floor by transport [employer].
--- NOTE | 2024-05-04 15:53 | P.CONAN_ITS ---
HPI - Anesthesia Eval Consult details Narrative: for EGD - GI bleed PMFSH Active Problems Active Problems: All Active Problems Rectal bleeding (Acute) Acidosis, lactic (Acute) GI (gastrointestinal bleed) (Acute) UTI symptoms (Acute) Claudication (Acute) Smoker (Acute) Aortic stenosis (Acute) Paronychia of toe (Acute) Nocturia (Acute) BPH loc w urin obs/LUTS (Acute) Tachycardia (Acute) GI bleed (Acute) Hematuria (Acute) Encounter for subsequent annual wellness visit (AWV) in Medicare patient (Acute) Lung nodule (Acute) Leukocytosis (Acute) Contusion of left chest wall (Acute) COVID-19 virus infection (Acute) Osteoarthritis of right knee (Acute) Infected sebaceous cyst (Acute) Right knee pain (Acute) Microscopic hematuria (Acute) Dermatitis (Acute) Cervical neck pain with evidence of disc disease (Acute) Encounter for annual wellness visit (AWV) in Medicare patient (Acute) Inguinal hernia recurrent unilateral (Acute) AV fistula (Acute) Screening PSA (prostate specific antigen) (Acute) Diabetes (Acute) Inappropriate sinus tachycardia (Acute) Moderate aortic stenosis (Acute) PVD (peripheral vascular disease) (Acute) Hyperlipidemia (Acute) Hypertension (Acute) Leg heaviness (Acute) Past Medical History Medical History Diabetes Dyslipidemia Hyperlipidemia Inappropriate sinus tachycardia Family History Family History Paternal Grandfather CAD (coronary artery disease) Father Pulmonary disease Maternal Grandmother Diabetes mellitus Family history of problems with anesthesia: No Surgical History Surgical History Hx of hernia repair Hx of cardiac cath History of Problems with Anesthesia: No Social History Social History Household Members: Children Housing: House Are you a primary manager urgent care to a significant other at home: No Do you presently have visiting nurse or other home services: No Alcohol intake: current Alcohol intake frequency: holidays/special occasions only Patient Tobacco Use Status: Former Tobacco user e-Cigarette/Vaping Use: Never Used Second Hand Smoke Exposure: No Advance Directives Date on File: 12/14/23 service: No Current occupational status: retired Cognitive needs: No Hearing needs: No Vision needs: No Meds Allergies Allergy/AdvReac Type Severity Reaction Status Date / Time No Known Allergies Allergy Verified 05/03/24 08:28 Active Medications: Current Medications Acetaminophen (Acetaminophen 325 Mg Tablet) 650 mg PO Q6H PRN PRN Reason: Pain, Mild 1-3,fever,headache Albuterol/Ipratropium (Albuterol/Iprat 2.5/0.5mg 3 Ml Ampul.Neb) 3 ml INHALE QID PRN PRN Reason: Shortness Of Breath Or Wheezing Calcium Carbonate (Calcium Carbonate 750 Mg Tab.Chew) 750 mg PO Q4H PRN PRN Reason: Heartburn Diltiazem HCl (Diltiazem Hcl Cd 120 Mg Cap.Er.Deg) 120 mg PO DAILY [facility]; Protocol Last Admin: 05/04/24 11:21 Dose: 120 mg Finasteride (Finasteride 5 Mg Tablet) 5 mg PO DAILY [facility] Last Admin: 05/04/24 11:21 Dose: 5 mg Fluticasone/Umeclidinium/Vilanterol (Fluticasone/Umeclidinium/Vilanterol 100/62.5/25 Blst.W.Dev) 2 puff INHALE RDAILY [facility] Sodium Chloride (Ns) 1,000 mls @ 100 mls/hr IVCONT .Q10H [facility] Last Admin: 05/04/24 11:15 Dose: 100 mls/hr Magnesium Hydroxide (Milk Of Magnesia 30 Ml Oral.Susp) 30 ml PO DAILY PRN PRN Reason: Constipation Melatonin (Melatonin 3 Mg Tablet) 6 mg PO BEDTIME PRN PRN Reason: Insomnia Ondansetron HCl (Ondansetron Hcl 4 Mg/2 Ml Vial) 4 mg IVPUSH Q8H PRN PRN Reason: Nausea and Vomiting Pantoprazole Sodium (Pantoprazole Sodium 40 Mg/10 Ml Vial) 40 mg IVPUSH DAILY@0630 [facility] Last Admin: 05/04/24 06:35 Dose: 40 mg Sodium Chloride (0.9 % Sodium Chloride Flush 3 Ml Syringe) 3 ml IVFLUSH QSHIFT [facility] Last Admin: 05/04/24 07:19 Dose: Not Given Tamsulosin HCl (Tamsulosin Hcl 0.4 Mg Capsule) 0.4 mg PO BID [facility] Home Medications ?Medication ?Instructions ?Recorded ?Confirmed ?Last Taken ?Type aspirin 81 mg tablet,delayed 81 mg PO DAILY 04/29/23 05/03/24 05/03/24 History release (Adult Aspirin Regimen) cholecalciferol (vitamin D3) 50 50 mcg PO MOWEFR 04/29/23 05/03/24 05/03/24 History mcg (2,000 unit) capsule diltiazem HCl 240 mg 240 mg PO DAILY 05/03/24 05/03/24 05/03/24 History capsule,extended release 24 hr fluticasone fur. 100 mcg-umeclid 2 inh inhalation DAILY 05/03/24 05/03/24 05/03/24 History 62.5 mcg-vilant 25 mcg inhalat.powder (Trelegy Ellipta) guaifenesin 1,200 mg tablet, 1,200 mg PO WE05/03/24 05/03/24 05/03/24 History extended release 12 hr (Mucinex) ipratropium 20 mcg-albuterol 100 1 puff inhalation QID PRN 05/03/24 05/03/24 05/03/24 History mcg/actuation mist for inhalation Shortness Of Breath Or Wheezing (Combivent Respimat) meloxicam 15 mg tablet 15 mg PO BID for pain 05/03/24 05/03/24 05/03/24 History omeprazole 40 mg capsule,delayed 40 mg PO DAILY@0630 05/03/24 05/03/24 05/03/24 History release rosuvastatin 40 mg tablet 40 mg PO DAILY 05/03/24 05/03/24 05/03/24 History vitamin B complex 1 tab PO DAILY 05/03/24 05/03/24 05/03/24 History Exam Height,Weight and Vital Signs: Height 6 ft Weight 109.6 kg Last Vital Signs Temp 97.9 F 05/04/24 13:48 Pulse 97 05/04/24 13:48 Resp 14 05/04/24 13:48 BP 150/58 H 05/04/24 13:48 Pulse Ox 96 05/04/24 13:48 O2 Del Method Room Air 05/04/24 13:48 Pertinent Lab Results Pertinent Lab Results: Laboratory Tests 05/03/24 05/03/24 05/03/24 08:37 14:26 14:27 WBC 10.6 RBC 5.77 Hgb 16.6 Hct 51.7 MCV 89.6 MCH 28.8 MCHC 32.1 RDW 14.6 Plt Count 249 MPV 9.6 Immature Gran % (Auto) 0.4 Neut % (Auto) 78.2 H Lymph % (Auto) 14.0 L Union % (Auto) 5.3 Eos % (Auto) 1.3 Baso % (Auto) 0.8 Lymph # (Auto) 1.5 [place] # (Auto) 0.6 Eos # (Auto) 0.1 Baso # (Auto) 0.1 Abs Immat Gran (auto) 0.04 H Absolute Neuts (auto) 8.3 Absolute Nucleated RBC 0.000 Nucleated RBC % (auto) 0.0 PT 11.9 INR 1.0 Sodium 141 Potassium 4.9 Chloride 110 H Carbon Dioxide 22 Anion Gap 14 BUN 15 Creatinine 0.93 Estim Creat Clear Calc 91.8 Estimated GFR > 60 Random Glucose 155 H Lactic Acid 3.0 H* Lactic Acid F/U @ 2Hr Calcium 9.3 Total Bilirubin 0.5 AST 25 ALT 23 Alkaline Phosphatase 81 Total Protein 7.3 Albumin 4.2 Stool Occult Blood Blood Type O Positive Antibody Screen NEGATIVE 05/03/24 05/03/24 05/04/24 14:28 17:51 04:45 WBC 10.5 9.0 RBC 5.02 4.67 Hgb 14.3 13.4 L Hct 45.8 42.9 MCV 91.2 91.9 MCH 28.5 28.7 MCHC 31.2 31.2 RDW 14.6 14.8 Plt Count 214 203 MPV 9.9 10.1 Immature Gran % (Auto) 0.4 0.4 Neut % (Auto) 77.4 H 68.4 Lymph % (Auto) 14.7 L 19.0 L [place] % (Auto) 5.6 8.9 Eos % (Auto) 1.0 2.4 Baso % (Auto) 0.9 0.9 Lymph # (Auto) 1.6 1.7 [place] # (Auto) 0.6 0.8 Eos # (Auto) 0.1 0.2 Baso # (Auto) 0.1 0.1 Abs Immat Gran (auto) 0.04 H 0.04 H Absolute Neuts (auto) 8.1 6.1 Absolute Nucleated RBC 0.000 0.000 Nucleated RBC % (auto) 0.0 0.0 PT INR Sodium 140 Potassium 4.1 Chloride 113 H Carbon Dioxide 22 Anion Gap 9 L BUN 12 Creatinine 0.69 Estim Creat Clear Calc 123.7 Estimated GFR > 60 Random Glucose 106 Lactic Acid Lactic Acid F/U @ 2Hr 1.6 Calcium 8.2 L D Total Bilirubin AST ALT Alkaline Phosphatase Total Protein Albumin Stool Occult Blood POSITIVE Blood Type Antibody Screen Narrative Narrative: Echo from 11/18/23 reviewed. Airway Mallampati Class: II TM Dist: <=3cm Neck ROM: Full Loose/Missing/Broken Teeth: Yes and Lower Heart: RRR. I could not hear a M. Carotid upstrokes are brisk. Lungs: ok. Assessment and Plan Assessment Anesthesia Assessment: Anesthesia Plan Discussed and Chart Reviewed Final Anesthetic Review Family History of Problems with Anesthesia: No History of Problems with Anesthesia: No NPO: Yes ASA Class: III and Emergency Patient Risk: Intermediate Procedure Risk: Intermediate Anesthetic Plan Anesthetic Plan: Agree w/ Assess. and Plan and TIVA Disposition: Standard PACU
--- NOTE | 2024-05-04 15:58 | MHC.SHP ---
Pre-Procedural Eval Section A - 24 Hr Update-Section A only Date of Service: 05/04/24 The patient is an INPATIENT: Yes The patient has been examined within 24 hours of the surgical procedure. The History & Physical has been completed within 30 days and I have reviewed it.: Yes Section B - Complete if H&P > 30 days Chief Complaint: Rectal bleeding Allergies: Allergies Allergy/AdvReac Type Severity Reaction Status Date / Time No Known Allergies Allergy Verified 05/03/24 08:28 Plan I have reviewed the history and physical and performed a pertinent physical examination on my patient. No changes have occurred unless specified. Time Spent With Patient Time: Total time managing care of this patient today ____ minutes.
--- NOTE | 2024-05-04 16:33 | P.BOP_ITS ---
Brief Operative Note Date of Service: 05/04/24 Pre-op diagnosis: GI Bleed Post-op diagnosis: other (Hiatal hernia, Reflux, R/O Walker's) Procedure: EGD with biopsies Surgeon: Raji Tellez MD Anesthesia: MAC Was an Nursing Center Tutor used for this Procedure?: No Estimated blood loss (mL): 2.0 Pathology: other (A. EG Junction at 35cm) Condition: stable Disposition: PACU
--- NOTE | 2024-05-04 16:34 | PM.EVENT ---
Event Note Date of Service: 05/04/24 Event Note: GI-EGD with biopsies-Full note dictated Findings: 1. Hiatal hernia with changes of reflux and probable Walker's esophagus. Biopsies taken. No esophagitis. 2. Stomach and duodenum normal--No ulcer disease, no bleeding, no mass Imp: Based on the negative EGD re: bleeding, I suspect his presentation was due to a recurrent diverticular bleed. He presently appears stable. Rec: Change back to po PPI. F/U Hgb. Clear liquids. Hold all aspirin and NSAIDs. If he has signs of recurrent active bleeding I would recommend a CTA of abdomen and then an IR consult if it shows active bleeding. Given his colonoscopy approximately 1 year ago, I do not think he needs a repeat colonoscopy at this time. If stable, his diet can be advanced further tomorrow. Please call me if questions or problems. D/W his son, Fitz. Thanks Time Spent With Patient Time: Total time managing care of this patient today ____ minutes.
[2024-05-04] MEDS: iohexoL 350 MG/ML 100 ML INFUS..BTL IV (17:33)
[2024-05-04 18:47] LABS: MANUAL DIFF FLAG NO
[2024-05-04 18:49] LABS: Basophils Absolute Auto 0.1 X10*3/uL (0.0-0.2); Eosinophils Absolute Auto 0.2 X10*3/uL (0.0-0.4); Eosinophils Percent Auto 2.2 % (0-4); Hematocrit 39.2 % (42.0-52.0); Hemoglobin 12.6 g/dl (14.0-18.0); Imm Gran Abs Auto 0.03 X10*3/uL (0.00-0.03); Imm Gran Pct Auto 0.3 % (0.0-0.4); Lymphocytes Absolute Auto 1.3 X10*3/uL (1.2-4.9); Lymphocytes Percent Auto 14.1 % (20-40); Mean Corpuscular HGB Conc 32.1 g/dl (31.0-36.0); Mean Corpuscular Volume 90.1 fL (80.0-98.0); Mean Platelet Volume 9.6 fL (9.4-12.4); Monocytes Absolute Auto 0.6 X10*3/uL (0.1-1.2); Monocytes Percent Auto 6.4 % (2-11); Neutrophils Absolute Auto 6.8 x10*3/uL (2.0-8.3); Platelet Count 230 X10*3/uL (160-400); Red Blood Count 4.35 X10*6/uL (4.60-5.80); Red Cell Distribution Width 14.4 % (11.0-16.0); White Blood Count 8.9 X10*3/uL (4.8-10.8)
[2024-05-04] MEDS: Tamsulosin HCL 0.4 MG CAPSULE PO (19:53)
--- NOTE | 2024-05-04 21:02 | OP_ITS ---
DATE OF SERVICE: 05/04/2024 SURGEON: Raji Tellez MD INDICATIONS: The patient presents for evaluation of GI bleeding. Full consent obtained from him for this, including risks of bleeding and perforation. PREOPERATIVE DIAGNOSIS: Gastrointestinal bleeding. POSTOPERATIVE DIAGNOSIS: PROCEDURE PERFORMED: Esophagogastroduodenoscopy with biopsies. ESTIMATED BLOOD LOSS: COMPLICATIONS: ANESTHESIA: Monitored anesthesia care. ASSISTANTS: SPECIMENS: POSTOPERATIVE DIAGNOSES: Gastrointestinal bleeding, hiatal hernia, gastroesophageal reflux, rule out Walker esophagus. DESCRIPTION OF PROCEDURE: The patient was placed in left lateral decubitus position. The Olympus video gastroscope was passed in the posterior oropharynx and upper esophagus under direct vision. The scope was passed slowly into the distal esophagus. The gastroesophageal junction appeared at 35 cm. Extending from this were short, less than 1 cm, projections of probable Walker mucosa. There was no overlying mass, ulceration, nor any lesion. The scope easily entered the stomach, there was a small hiatal hernia. The hiatal hernia mucosa appeared normal. The scope was advanced to pylorus. The duodenum was cannulated to the descending portion. The duodenum including the bulb appeared normal without mass or ulceration. There was no sign of any blood or active bleeding in the duodenum. The scope was withdrawn back to the stomach. The gastric antrum and body appeared normal with good peristalsis. There was no sign of any bleeding. The scope was retroflexed visualizing the proximal stomach carefully which appeared normal as well, without any sign of mass or ulceration. There was no blood nor old blood in the stomach. The scope was straightened and withdrawn back to the esophagus. Biopsies were obtained at the EG junction at 35 cm in the area that appeared consistent with Walker mucosa. Proximal to this, the esophageal mucosa appeared normal. The scope was withdrawn from the patient. He tolerated the procedure well and was returned to recovery area in stable condition. IMPRESSION: Hiatal hernia, gastroesophageal reflux, rule out Walker esophagus. PLAN: Today's findings would not account for the cause of his bleeding. He did have a diverticular bleed 1 year ago. Of note, after the patient returned to the recovery area, he began passing fresh blood per rectum and therefore, I think this is a recurrent diverticular bleed as opposed to an upper GI bleed. While he did have some evidence of melena in the ER yesterday, his current symptoms are quite consistent with another lower GI bleed. I will order a stat CT angiogram of the abdomen to see if there is any active bleeding that can be determined and whether he would need any Interventional Radiology procedure tonight for treatment of that. He will have another CBC now. I did review with him and his family that if he does have active bleeding on the CT angiogram of the abdomen, then he would need interventional radiology procedure to try to stop that. If that is not available here this evening, then that would have to be done at a tertiary center via transfer. I did review all this with the patient and his family and they are agreeable to that plan if need be. MD MINAL Hyman/TRACI / [id number]
--- NOTE | 2024-05-04 21:56 | CONS_ITS ---
DATE OF SERVICE: 05/04/2024 REASON FOR CONSULTATION: GI bleeding. HISTORY OF PRESENT ILLNESS: This has been obtained from the patient and the medical record. Patient is a 74-year-old male who has had a previous history of GI bleeding in relation to diverticular disease at the end of March of last year. At that time, he underwent a colonoscopy with Dr. Luu with the finding of diverticulosis as well as some small polyps, which were shown to be tubular adenomas. His bleeding stopped spontaneously at that time. He never really had a significant drop in his hemoglobin. The patient describes that he was in his usual state of health up until about 2 to 3 days ago when he began having some blackish and bloody stool. He was not having any abdominal pain. He denied any hematemesis nor coffee-ground emesis. Due to the persistence of his symptoms, he came to the ER yesterday for evaluation. The exam by the ER physician revealed some black liquid on the examining glove, which was heme positive. The patient does take one 81 mg aspirin daily. He denies using any NSAIDs, although does have meloxicam on his list of medications that he takes for pain, but he reports that he does not use that as far as he can recall. He does not smoke nor use any significant amounts of alcohol. MEDICATIONS AT HOME: Included 81 mg aspirin, vitamin D, diltiazem, finasteride, Trelegy inhaler, guaifenesin, Combivent inhaler, ivabradine, metformin, omeprazole 40 mg, rosuvastatin, tamsulosin, verapamil, and Jardiance. PAST MEDICAL HISTORY: Includes hypertension, hyperlipidemia, noninsulin-dependent diabetes mellitus, gastroesophageal reflux, and enlarged prostate. He does have a history of hernia repair. He has a history of pulmonary disease. History of sinus tachycardia. FAMILY HISTORY: Noncontributory. SOCIAL HISTORY: He does not smoke or use any significant amounts of alcohol. He is a . REVIEW OF SYSTEMS: CONSTITUTIONAL: He has been feeling fairly well with good appetite. CARDIAC: No chest pain. PULMONARY: No cough or hemoptysis. GI: As above. PHYSICAL EXAMINATION: GENERAL: The patient is a pleasant, alert male. SKIN: Warm and dry. HEENT: Anicteric sclerae. CARDIAC: Normal S1, S2. ABDOMEN: Soft, nondistended, nontender. LABORATORY DATA: Admitting hemoglobin was 16.6 compared to 17.0 on April 28 and 16.0 in July 2023. White blood cell count 10.6, hemoglobin 16.6, and platelet count 249,000. PT 11.9 with INR 1.0. Normal electrolytes. BUN 15, creatinine 0.9. Normal LFTs. Albumin 4.2. IMPRESSION: Given the patient's clinical history of reported black stool mixed with blood, I would recommend an upper endoscopy to rule out an upper GI source of bleeding. At the present time, he appears stable. He does have some risk factors for upper GI bleeding including the use of low-dose aspirin, possibly a daily NSAID as well. Full consent has been obtained for the upper endoscopy, including risks of bleeding and perforation. At this point, I do not think a repeat colonoscopy is required given his exam just 1 year ago. If the upper endoscopy is negative and he continues to show signs of active bleeding, then he may need a CT angiogram of the abdomen for further evaluation. This has been discussed with him in detail. Thank you for the consultation. MD MINAL Hyman/TRACI / [id number]
--- NOTE | 2024-05-04 23:32 | P.EN_ITS ---
Event Note Date of Service: 05/04/24 Event Note: Hospitalist cross coverage note Abdominal CTA results noted - findings consistent with active GI bleed within the mid sigmoid colon and extensive diverticulosis. I discussed these results with Mr. Rebollar earlier this evening. Dr. Tellez had recommended transfer to a tertiary center for IR intervention tonight if his abdominal CT angiogram was positive which it is. I called [facility] and [facility] who did not have bed available to accept him as a tr ansfer. Mr. Rebollar is reluctant to go t [place] so I did not call the facility I spoke to the IR attending at [facility] who indicated that he would not intervene urgently/emergently tonight unless patient was hemodynamically unstable. I discussed these updates with the patient and we feel that since he is hemodynamically stable we will continue to trend his H/H and transfuse as needed. Assessment and plan of care # Diverticular bleed - keep here wt [facility] and continue to closely monitor his H&H. - transfuse if his hemoglobin drops to less than 7 g/dl - consult both surgery and Interventional Radiology in the morning if he continues to bleed Time Spent With Patient Time: Total time managing care of this patient today ____ minutes.
[2024-05-05] MEDS: 0.9 % Sodium Chloride 1,000 ML 100 ML IVCONT (03:39)
[2024-05-05 04:00] VITALS: BP 119/58; PULSE 99; RESP 18; TEMP 36.7; O2SAT 95
[2024-05-05 05:34] LABS: Glucose, Whole Blood 89 mg/dL (60-115)
[2024-05-05] MEDS: Omeprazole 40 MG CAPSULE.DR PO (05:50)
[2024-05-05 06:35] LABS: MANUAL DIFF FLAG NO
[2024-05-05 06:39] LABS: Basophils Absolute Auto 0.1 X10*3/uL (0.0-0.2); Basophils Percent Auto 0.9 % (0-2); Eosinophils Absolute Auto 0.3 X10*3/uL (0.0-0.4); Eosinophils Percent Auto 3.3 % (0-4); Hematocrit 38.2 % (42.0-52.0); Imm Gran Abs Auto 0.04 X10*3/uL (0.00-0.03); Imm Gran Pct Auto 0.5 % (0.0-0.4); Lymphocytes Absolute Auto 1.4 X10*3/uL (1.2-4.9); Lymphocytes Percent Auto 17.1 % (20-40); Mean Corpuscular HGB Conc 31.4 g/dl (31.0-36.0); Mean Corpuscular Hemoglobin 28.6 pg (27.0-33.0); Mean Corpuscular Volume 91.2 fL (80.0-98.0); Mean Platelet Volume 10.4 fL (9.4-12.4); Monocytes Absolute Auto 0.6 X10*3/uL (0.1-1.2); Monocytes Percent Auto 7.2 % (2-11); Platelet Count 211 X10*3/uL (160-400); Red Blood Count 4.19 X10*6/uL (4.60-5.80); Red Cell Distribution Width 14.6 % (11.0-16.0); White Blood Count 8.4 X10*3/uL (4.8-10.8)
[2024-05-05 07:06] LABS: Anion Gap 9 (12-20); Blood Urea Nitrogen 9 mg/dL (9-16); Calcium 8.1 mg/dL (8.4-10.2); Carbon Dioxide 21 mmol/L (22-29); Chloride 113 mmol/L (96-108); Creatinine Clr Calc Pharmacy 123.7; Estimated Glomerular Filt Rate > 60; Glucose Random 94 mg/dL (60-115); Sodium 139 mmol/L (135-145)
[2024-05-05 07:29] VITALS: BP 143/64; PULSE 99; RESP 16; TEMP 37.1; O2SAT 95
--- NOTE | 2024-05-05 07:43 | HO.POSTANES ---
Post Anesthesia Evaluation Post Anesthesia Evaluation Date of Service: 05/05/24 Vital Signs: Vital Signs Temp Pulse Resp BP Pulse Ox O2 Del Method 05/05/24 07:29 98.7 F 99 16 143/64 H 95 Room Air 05/05/24 04:00 98.1 F 99 18 119/58 L 95 Room Air 05/04/24 23:35 97.6 F 97 18 118/61 95 Room Air Anesthesia: TIVA Mental Status: Awake Pain Control: Satisfactory Nausea/Vomiting: None Hydration: Adequate Anesthesia-Related Issues: No Anes. Related Issues
[2024-05-05] MEDS: 0.9 % Sodium Chloride Flush 3 ML SYRINGE IVFLUSH (08:22)
[2024-05-05] MEDS: Finasteride 5 MG TABLET PO (08:22)
[2024-05-05] MEDS: dilTIAZem HCL CD 120 MG CAP.ER.DEG PO (08:22)
[2024-05-05] MEDS: Tamsulosin HCL 0.4 MG CAPSULE PO ×2 (08:22→20:55)
--- NOTE | 2024-05-05 09:56 | P.PNIM_ITS ---
Subjective Subjective Date of Service: 05/05/24 Interval History: Seen and evaluated this morning reports blood with stool last time 7 pm yesterday Hb trended down to 12 no other events Review of Systems Review of Systems: Yes all other systems are reviewed and are negative Physical Exam 2 Vital Signs: Vital Signs: Last Vital Signs Temp 98.7 F 05/05/24 07:29 Pulse 99 05/05/24 07:29 Resp 16 05/05/24 07:29 BP 143/64 H 05/05/24 07:29 Pulse Ox 95 05/05/24 07:29 O2 Del Method Room Air 05/05/24 07:29 BMI result Body Mass Index 32.8 Const: Other: Constitutional : interactive, not in distress Cardiovascular : no JVP, no lower extremity edema Respiratory : bilateral chest movement, not in resp distress Gastrointestinal: soft, lax, Non tender Skin : Warm, Dry Neurological : Alert & oriented , No focal deficit Objective Data Active Medications Acetaminophen (Acetaminophen 325 Mg Tablet) 650 mg PO Q6H PRN PRN Reason: Pain, Mild 1-3,fever,headache Albuterol/Ipratropium (Albuterol/Iprat 2.5/0.5mg 3 Ml Ampul.Neb) 3 ml INHALE QID PRN PRN Reason: Shortness Of Breath Or Wheezing Calcium Carbonate (Calcium Carbonate 750 Mg Tab.Chew) 750 mg PO Q4H PRN PRN Reason: Heartburn Diltiazem HCl (Diltiazem Hcl Cd 120 Mg Cap.Er.Deg) 120 mg PO DAILY [facility]; Protocol Last Admin: 05/05/24 08:22 Dose: 120 mg Documented By: KIMANI Finasteride (Finasteride 5 Mg Tablet) 5 mg PO DAILY [facility] Last Admin: 05/05/24 08:22 Dose: 5 mg Documented By: KIMANI Fluticasone/Umeclidinium/Vilanterol (Fluticasone/Umeclidinium/Vilanterol 100/62.5/25 Blst.W.Dev) 2 puff INHALE RDAILY [facility] Sodium Chloride (Ns) 1,000 mls @ 100 mls/hr IVCONT .Q10H [facility] Last Admin: 05/05/24 03:39 Dose: 100 mls/hr Documented By: SLADE Magnesium Hydroxide (Milk Of Magnesia 30 Ml Oral.Susp) 30 ml PO DAILY PRN PRN Reason: Constipation Melatonin (Melatonin 3 Mg Tablet) 6 mg PO BEDTIME PRN PRN Reason: Insomnia Omeprazole (Omeprazole 40 Mg Capsule.) 40 mg PO DAILY@0630 [facility] Last Admin: 05/05/24 05:50 Dose: 40 mg Documented By: SLADE Ondansetron HCl (Ondansetron Hcl 4 Mg/2 Ml Vial) 4 mg IVPUSH Q8H PRN PRN Reason: Nausea and Vomiting Sodium Chloride (0.9 % Sodium Chloride Flush 3 Ml Syringe) 3 ml IVFLUSH QSHIFT [facility] Last Admin: 05/05/24 08:22 Dose: 3 ml Documented By: KIMANI Tamsulosin HCl (Tamsulosin Hcl 0.4 Mg Capsule) 0.4 mg PO BID [facility] Last Admin: 05/05/24 08:22 Dose: 0.4 mg Documented By: KIMANI Labs 05/05/24 05:26 05/05/24 05:26 Labs: Laboratory Results - last 24 hr 05/04/24 05/04/24 05/05/24 13:58 18:38 05:26 MCV 90.1 91.2 MCH 29.0 28.6 MCHC 32.1 31.4 RDW 14.4 14.6 Plt Count 230 211 MPV 9.6 10.4 Immature Gran % (Auto) 0.3 0.5 H Neut % (Auto) 76.0 H 71.0 Lymph % (Auto) 14.1 L 17.1 L [place] % (Auto) 6.4 7.2 Eos % (Auto) 2.2 3.3 Baso % (Auto) 1.0 0.9 Lymph # (Auto) 1.3 1.4 [place] # (Auto) 0.6 0.6 Eos # (Auto) 0.2 0.3 Baso # (Auto) 0.1 0.1 Abs Immat Gran (auto) 0.03 0.04 H Absolute Neuts (auto) 6.8 6.0 Absolute Nucleated RBC 0.000 0.000 Nucleated RBC % (auto) 0.0 0.0 Anion Gap 9 L Estim Creat Clear Calc 123.7 Estimated GFR > 60 POC Glucose 89 Random Glucose 94 Calcium 8.1 L Microbiology Microbiology Results: Microbiology 05/03/24 14:27 Blood Culture - Preliminary Blood - Venous No growth after 24 hours. 05/03/24 14:27 Blood Culture - Preliminary Blood - Venous No growth after 24 hours. Assessment and Plan (1) Rectal bleeding: Status: Acute (2) Acidosis, lactic: Status: Acute (3) GI (gastrointestinal bleed): Status: Acute (4) Acute blood loss anemia: Status: Acute Plan Pt is a 74-year-old male with a PMH significant for?HTN, HLD, vpx-bkrahgt-gwcfdxhis type 2 diabetes, BPH, and GERD who presents to the ED for evaluation of rectal bleeding x3 days. Pt will be admitted to the hospital under observation for treatment further evaluation of rectal bleeding concerning for GI bleed. Rectal bleeding with acute blood loss anemia last bloody bowel motion 3/ 7pm Hb dropped to 12 Hx of GI bleed last year attributed to diverticulosis Protonix IV GI did EGD with no source of bleeding CTA showed diverticular bleeding. tried to transfer him but other hospitals refused. no more bleeding since last night. Monitor H&H Acute lactic acidosis Secondary to metformin use, not sepsis resolved HTN Continue verapamil Non-insulin dependent type 2 diabetes Hold metformin Sliding-scale insulin Diabetic diet once no longer NPO BPH Continue tamsulosin Full Code DVT Prophylaxis: Pneumatic compression due to GI bleed Will need overnight hospital stay for closem onitoring of bleeding and Hemoglobin level Quality Stroke Does the patient have a stroke diagnosis?: No VTE Prior VTE?: No VTE Risk Level:: Medical - moderate - high VTE Device Contraindication: N/A - Device Ordered VTE Drug Contraindication: Treatment Not Indicated
[2024-05-05 11:25] VITALS: BP 136/59; PULSE 101; RESP 18; TEMP 36.9; O2SAT 95
[2024-05-05 15:12] VITALS: BP 141/68; PULSE 85; RESP 18; TEMP 36.4; O2SAT 95
[2024-05-05 17:37] LABS: MANUAL DIFF FLAG NO
[2024-05-05 17:40] LABS: Basophils Absolute Auto 0.1 X10*3/uL (0.0-0.2); Basophils Percent Auto 1.1 % (0-2); Eosinophils Absolute Auto 0.2 X10*3/uL (0.0-0.4); Eosinophils Percent Auto 2.9 % (0-4); Hemoglobin 11.9 g/dl (14.0-18.0); Imm Gran Abs Auto 0.03 X10*3/uL (0.00-0.03); Imm Gran Pct Auto 0.4 % (0.0-0.4); Lymphocytes Absolute Auto 1.7 X10*3/uL (1.2-4.9); Mean Corpuscular HGB Conc 32.2 g/dl (31.0-36.0); Mean Platelet Volume 9.9 fL (9.4-12.4); Monocytes Absolute Auto 0.6 X10*3/uL (0.1-1.2); Monocytes Percent Auto 7.1 % (2-11); Neutrophils Absolute Auto 5.6 x10*3/uL (2.0-8.3); Neutrophils Percent Auto 67.5 % (45-73); Platelet Count 215 X10*3/uL (160-400); Red Blood Count 4.11 X10*6/uL (4.60-5.80); Red Cell Distribution Width 14.6 % (11.0-16.0); White Blood Count 8.3 X10*3/uL (4.8-10.8)
--- NOTE | 2024-05-05 18:42 | P.PNGI_ITS ---
Subjective Subjective Date of Service: 05/05/24 Interval History: His son Fitz is present. Patient has had no further bleeding since last evening shortly after the CTA of the abdomen. Tolerating liquids, denies abdominal pain. Critical Care Time (minutes): 0 Physical Exam 2 Vital Signs: Vital Signs: Last Vital Signs Temp 97.5 F 05/05/24 15:12 Pulse 85 05/05/24 15:12 Resp 18 05/05/24 15:12 BP 141/68 H 05/05/24 15:12 Pulse Ox 95 05/05/24 15:12 O2 Del Method Room Air 05/05/24 15:12 BMI result Body Mass Index 32.8 Const: General: cooperative, comfortable, no acute distress, well developed and alert GI: Other: Abd-Soft, NT, no mass Objective Data Labs 05/05/24 17:32 05/05/24 05:26 Labs: Laboratory Results - last 24 hr 05/04/24 05/04/24 05/05/24 13:58 18:38 05:26 WBC 8.9 8.4 RBC 4.35 L 4.19 L Hgb 12.6 L 12.0 L Hct 39.2 L 38.2 L MCV 90.1 91.2 MCH 29.0 28.6 MCHC 32.1 31.4 RDW 14.4 14.6 Plt Count 230 211 MPV 9.6 10.4 Immature Gran % (Auto) 0.3 0.5 H Neut % (Auto) 76.0 H 71.0 Lymph % (Auto) 14.1 L 17.1 L [place] % (Auto) 6.4 7.2 Eos % (Auto) 2.2 3.3 Baso % (Auto) 1.0 0.9 Lymph # (Auto) 1.3 1.4 [place] # (Auto) 0.6 0.6 Eos # (Auto) 0.2 0.3 Baso # (Auto) 0.1 0.1 Abs Immat Gran (auto) 0.03 0.04 H Absolute Neuts (auto) 6.8 6.0 Absolute Nucleated RBC 0.000 0.000 Nucleated RBC % (auto) 0.0 0.0 Sodium 139 Potassium 4.0 Chloride 113 H Carbon Dioxide 21 L Anion Gap 9 L BUN 9 Creatinine 0.69 Estim Creat Clear Calc 123.7 Estimated GFR > 60 POC Glucose 89 Random Glucose 94 Calcium 8.1 L 05/05/24 17:32 WBC 8.3 RBC 4.11 L Hgb 11.9 L Hct 37.0 L MCV 90.0 MCH 29.0 MCHC 32.2 RDW 14.6 Plt Count 215 MPV 9.9 Immature Gran % (Auto) 0.4 Neut % (Auto) 67.5 Lymph % (Auto) 21.0 [place] % (Auto) 7.1 Eos % (Auto) 2.9 Baso % (Auto) 1.1 Lymph # (Auto) 1.7 [place] # (Auto) 0.6 Eos # (Auto) 0.2 Baso # (Auto) 0.1 Abs Immat Gran (auto) 0.03 Absolute Neuts (auto) 5.6 Absolute Nucleated RBC 0.000 Nucleated RBC % (auto) 0.0 Sodium Potassium Chloride Carbon Dioxide Anion Gap BUN Creatinine Estim Creat Clear Calc Estimated GFR POC Glucose Random Glucose Calcium Microbiology Microbiology Results: Microbiology 05/03/24 14:27 Blood - Venous Blood Culture - Preliminary No growth after 48 hours. 05/03/24 14:27 Blood - Venous Blood Culture - Preliminary No growth after 48 hours. Procedures Date of Service Date of Service: 05/05/24 Progress Note: A&P Assessment and plan (1) GI (gastrointestinal bleed): Status: Acute (2) Acute blood loss anemia: Status: Acute (3) Diverticular hemorrhage: Status: Acute Assessment and Plan: Imp: Diverticular bleed-presently stable and no signs of active bleeding at the present time. Rec: Continue observation. Presently no need for IR intervention nor colonoscopy. Advance diet tomorrow if stable. Would hold aspirin for at least 2- 3 weeks. If he rebleeds I would then involve IR. D/W patient and son in detail. They are comfortable with this plan. Thanks Time Spent With Patient Time: Total time managing care of this patient today ____ minutes. Quality Stroke Does the patient have a stroke diagnosis?: No VTE Prior VTE?: No VTE Risk Level:: Medical - moderate - high VTE Device Contraindication: N/A - Device Ordered VTE Drug Contraindication: Treatment Not Indicated
[2024-05-05 19:09] VITALS: BP 127/60; PULSE 85; RESP 18; TEMP 36.1; O2SAT 95
[2024-05-05 23:32] VITALS: BP 132/60; PULSE 80; RESP 18; TEMP 36.6; O2SAT 94
[2024-05-06 03:17] VITALS: BP 118/61; PULSE 86; RESP 18; TEMP 36.8; O2SAT 93
[2024-05-06] MEDS: Omeprazole 40 MG CAPSULE.DR PO (06:22)
[2024-05-06 07:09] LABS: MANUAL DIFF FLAG NO
[2024-05-06 07:25] VITALS: BP 123/58; PULSE 83; RESP 18; TEMP 36; O2SAT 95
[2024-05-06 08:00] LABS: Basophils Absolute Auto 0.1 X10*3/uL (0.0-0.2); Eosinophils Absolute Auto 0.3 X10*3/uL (0.0-0.4); Hematocrit 37.5 % (42.0-52.0); Hemoglobin 11.9 g/dl (14.0-18.0); Imm Gran Abs Auto 0.04 X10*3/uL (0.00-0.03); Imm Gran Pct Auto 0.6 % (0.0-0.4); Lymphocytes Absolute Auto 1.4 X10*3/uL (1.2-4.9); Lymphocytes Percent Auto 19.4 % (20-40); Mean Corpuscular HGB Conc 31.7 g/dl (31.0-36.0); Mean Corpuscular Volume 91.2 fL (80.0-98.0); Mean Platelet Volume 10.2 fL (9.4-12.4); Monocytes Absolute Auto 0.5 X10*3/uL (0.1-1.2); Monocytes Percent Auto 7.1 % (2-11); Neutrophils Absolute Auto 4.8 x10*3/uL (2.0-8.3); Neutrophils Percent Auto 67.9 % (45-73); Platelet Count 214 X10*3/uL (160-400); Red Blood Count 4.11 X10*6/uL (4.60-5.80); Red Cell Distribution Width 14.6 % (11.0-16.0); White Blood Count 7.1 X10*3/uL (4.8-10.8)
[2024-05-06] MEDS: Finasteride 5 MG TABLET PO (08:59)
[2024-05-06 09:00] VITALS: PULSE 98
[2024-05-06] MEDS: dilTIAZem HCL CD 120 MG CAP.ER.DEG PO (09:00)
[2024-05-06] MEDS: Tamsulosin HCL 0.4 MG CAPSULE PO (09:00)
[2024-05-06] MEDS: 0.9 % Sodium Chloride Flush 3 ML SYRINGE IVFLUSH (09:02)
--- OUTSIDE RECORDS SUMMARY | 2024-05-06 10:29 | XMS_ITS ---
Author Organization [facility] Florentin [place] Address [address] [place] [address] Care Team Providers Care Applications Coordinator Name Role Phone Geovani Sears Primary Care Provider Unav ailable Crow Morris Unavailable [phone] Allergies No Known Allergies REASON FOR VISIT [...] Ordered Date Performed Result Body Sit e 81119-IPVVLCT NAIL, 6 OR MORE 02/02/2024 N/A 36440-OLTO SKIN LESIONS, 2 TO 4 02/02/2024 N/A Encounters Encounter Location Date Provider Diagnosis [facility] [place] [address] [place] [address] 02/02/2024 Crow Morris Type 2 diabetes mellitus with diabetic polyneuropathy E11.42 and Tinea unguium B35.1 Assessments Encounter Date Diagnosis (ICD Code) Assessment Notes Treatment Notes Treatment Clinical Notes Section Notes 02/02/2024 Type 2 diabetes mellitus with diabetic polyneuropathy (ICD-10 - E11.42) 02/02/2024 Tinea unguium (ICD-10 - B35.1) 02/02/2024 Other Plan Of Treatment Pending Test Test Name Order Date 76129-XPFTTNE NAIL, 6 OR MORE 02/02/2024 46492-SGLQ SKIN LESIONS, 2 TO 4 02/02/20 24 [...] use of a nail nipper and/or dremel-type thread tool grinder set up operator, to a more viable healthy nail [...] to maintain effectiveness in symptomatic relief - 48961 Keratoma Treatment Parring or Cutting o f Benign Hyperkeratotic Lesion(s) (-56) 2-4 Lesions - The Benign hyperkeratotic lesions, ( 4) in total, locations as stated and described in exam, were pared, and/or cut utilizing a sterile 15 blade, tissue nippers, and/or power dremel instrumentation - 79852 Progress Notes * Cody OSEGUERA WDOB: 3 (73 yo M)Acc No.[id number]:02/02/2024 Progress Note Patient:?KETURAH, Cody W Provider:?Crow Morris DPM :1950???Age:73 Y???Sex:Male Con e:02/02/2024 Address:[address] [place] [id number] Pcp:LOU Sun Subjective: * Chief Complaints: * [...] 1998Hernia Repair 2000 * Hospitalization/Major Diagno stic Procedure:?[facility] [place]- Throwing up blood 04/2023 * Family History:?Mother: [...] use of a nail nipper and/or dremel-type thread tool grinder set up operator, to a more viable healthy nail [...] to maintain effectiveness in symptomatic relief - 17917.?Keratoma Treatment:?Parring or Cutting of Benign Hyperkeratotic Lesion(s)?(-56) 2-4 Lesions - The Benign hyperkeratotic lesions, ( 4) in total, locations as stated and described in exam, were pared, and/or cut utilizing a sterile 15 blade, tissue nippers, and/or power dremel instrumentation - 17386.? * Procedure Codes:?51751 DEBRI DE NAIL, 6 OR MORE, Modifiers: XS 89051 TRIM SKIN LESIONS, 2 TO 4, Modifiers: XS * Follow Up:?prn * Images: * Sign off status: Completed true * Provider:?Crow Morris DPM Date:?2023 Generated for Kirill kaplan/Lily/Alexeysmitting on:?05/06/2024 10:29 AM EST History and Physical Notes * [...]
--- OUTSIDE RECORDS SUMMARY | 2024-05-06 10:30 | XMS_ITS ---
Author Organization [facility] Address [address] [place] [address] Care Team Providers Care Tobacco Sorter Name Role Phone PAOLO TERRELL Primary Care Provider Raji Salas Unavailable [phone] Ezekiel Luu Jr Unavailable REASON FOR VISIT GI bleed Encounters Encounter Location Date Provider Diagnosis [facility] Inpatient [address] [place] [id number] 04/01/2023 Ezekiel Luu Jr Plan Of Treatment No Information Progress Notes * ANA ROSA, IRENE WDOB: [birth year] (74 yo M)Acc No.[id number]:04/01/2023 COLON WITH MAC Patient:?IRENE OSEGUERA Provider:?Ezekiel Luu MD :1950???Age:73 Y???Sex:Male Con e:04/01/2023 Address:[address] [place], [place] [id number] Pcp:PAOLO TERRELL Subjective: * Chief Complaints: * ???1. GI bleed. * Medical History:? Objective: * Vitals:? Assessment: Plan: * Treatment: * * The named appointment provid er may or may not be the originator of this progress note, and it is not deemed complete until electronically signed by the appointment provider. Sign off status: Pending * Provider:?Ezekiel Luu MD Date:?0 04/01/2023 Generated for Kirill kaplan/Lily/eTransmitting on:?05/06/2024 10:29 AM EST
--- OUTSIDE RECORDS SUMMARY | 2024-05-06 10:30 | XMS_ITS | Patient Health Record ---
Author Organization [facility] Florentin marguerite [place] Address [address] [place] [address] Care Team Providers Care Chronic Disease Epidemiologist Name Role Phone Geovani Sears Primary Care Provider Unav ailable Crow Morris Unavailable [phone] Allergies No Known Allergies Results Component Value [...] Problem Acquired hammer toe of right foot (1448250751592964 ) Other hammer toe(s) (acquired), right foot (M20.41) Active confirmed Problem Acquired hammer toe of left foot (5624339708619174 ) Other hammer toe(s) (acquired), left foot (M20.42) Active confirmed Problem Polyneuropathy due to type 2 diabetes mellitus (149917141) Type 2 diabetes mellitus with diabetic polyneuropathy (E11.42) Active confirmed Vital Signs Blood pressure diastolic 74 mm Hg 02/02/2024 Height 6 ft in 02/02/2024 Blood pressure systolic 138 mm Hg 02/02/2024 Weight 245 lbs 02/02/2024 BMI 33.22 kg/m2 02/02/2024 Procedures Procedure Date Ordered Date Performed Result Body Sit e 50750-UGXHERS NAIL, 6 OR MORE 11/03/2023 N/A 10632-Xzarqowh Plate 11/03/2023 N/A 84562-VPYV SKIN LESIONS, 2 TO 4 11/03/2023 N/A 33226-AXOZHOK NAIL, 6 OR MORE 02/02/2024 N/A 57237-FHGO SKIN LESIONS, 2 TO 4 02/02/2024 N/A Encounters Encounter Location Date Provider Diagnosis [address] [address] 11/03/2023 Crow Morris Type 2 diabetes mellitus with diabetic polyneuropathy E11.42 ; Tinea unguium B35.1 ; Ingrown nail L60.0 ; Other hammer toe(s) (acquired), right foot M20.41 and Other hammer toe(s) (acquired), left foot M20.[address] [address] 02/02/2024 Crow Morris Type 2 diabetes mellitus with diabetic polyneuropathy E11.42 and Tinea unguium B35.[address] [address] 05/03/2024 Crow Morris [address] [address] 07/23/2023 Crow Morris Assessments Encounter Date Diagnosis [...] Treatment Pending Test Test Name Order Date 73977-XRRBIBX NAIL, 6 OR MORE 11/03/2023 10101-ZFAYHBJ NAIL, 6 OR MORE 02/02/2024 72533-Uxpdrliv Plate 11/03/2023 95016- Debride <25 sq cm 07/23/2018 28917 I&D ABSCESS- SIMPLE,SINGLE 019 59362-HHHP SKIN LESIONS, 2 TO 4 11/03/19 73606-ITVB SKIN LESIONS, 2 TO 4 02/02/20 Insurance Providers Payer Name Payer Address Payer Phone Subscriber Number Group Number Insured Name Patient Relationship to Insured Coverage Start Date Coverage End Date Medicare National Govt [employer] [facility] [address] [place] [address] [id number] Cody Rebollar Self - patient is the insured 7 [employer] Blue [employer] [address] [place] [address] [id number] Cody Rebollar Self - patient is the [...] Hernia Repair 2000 Hospitalization History Reason Date(Month/Year[place] [facility] blood 04/2023
--- OUTSIDE RECORDS SUMMARY | 2024-05-06 10:30 | XMS_ITS ---
Author Organization [facility] Address [address] [place] [address] Care Team Providers Care Loading And Unloading Supervisor Name Role Phone Geovani Sears Primary Care Provider Unav ailable Crow Morris Unavailable [phone] REASON FOR VISIT SD cx 3/4 Encounters Encounter Location Date Provider Diagnosis [address] [address] 05/03/2024 Crow Morris Plan Of Treatment No Information Progress Notes * KETURAHCody MARTINEZ WDOB: 3 (74 yo M)Acc No.[id number]:05/03/2024 Patient:?Cody OSEGUERA :1950???Age:74 Y???Sex:Male Address:[address] [place] [address] * * Date:?
--- OUTSIDE RECORDS SUMMARY | 2024-05-06 10:30 | XMS_ITS ---
Author Organization [facility] Address [address] [place] [address] Care Team Providers Care Collar Packer Name Role Phone Geovani Sears Primary Care Provider Unav ailable Crow Morris Unavailable [phone] Encounters Encounter Location Date Provider Diagnosis [address] [address] 05/03/2024 Crow Morris Plan Of Treatment No Information Progress Notes * Cody REBOLLAR WDOB: [birth year] (74 yo M)Acc No.[id number]:05/03/2024 Progress Note Patient:Cody STILES Provider:?Crow Morris DPM :1950???Age:74 Y???Sex:Male Con e:05/03/2024 Address:[address] [place] [address] [phone] Pcp:LOU Sun Subjective: * Chief Complaints: * ??? * Medical History:? Objective: * Vitals:? Assessment: Plan: * Treatment: * Images: * The named appointment provid er may or may not be the originator of this progress note, and it is not deemed complete until electronically signed by the appointment provider. Sign off status: Pending * Provider:?Crow Morris DPM Date:?2024 Generated for Kirill kaplan/Lily/eTransmitting on:?05/06/2024 10:30 AM EST
--- OUTSIDE RECORDS SUMMARY | 2024-05-06 10:30 | XMS_ITS ---
Author Organization [facility] Address [address] [place] [address] Care Team Providers Care Boss Miner Name Role Phone PAOLO TERRELL Primary Care Provider Raji Salas [phone] REASON FOR VISIT pathology/ 3yr colon recall Encounters Encounter Location Date Provider Diagnosis [facility] [address] [place] [phone] 04/09/2023 Raji Tellez Plan Of Treatment No Information Progress Notes * IRENE OSEGUERA WDOB: [birth year] (73 yo M)Acc No.[id number]:04/09/2023 Patient:?IRENE OSEGUERA :1950???Age:73 Y???Sex:Male Address:[address] [place] [id number] * true * Date:? Generated for Kirill kaplan/Lily/eTransmitting on:?05/06/2024 10:30 AM EST
--- OUTSIDE RECORDS SUMMARY | 2024-05-06 10:30 | XMS_ITS | Patient Health Record ---
Author Organization [facility] Address [address] [place] [address] Care Team Providers Care Vp Integration Name Role Phone PAOLO SAMAYOA Primary Care Provider Raji Salas Unavailable [phone] Allergies Allergen (clinical drug ingredient) Drug/Non Drug Allergy documented on EMR Reaction Allergy Type Onset Date Status Aloe Aftersun Unknown Drug Allergy Act alejandro Results Component Value Reference Range Notes Complete Blood Count Auto Di ff Reviewed date:05/05/2024 10:11:31 AM Interpretation: Performing Lab:[facility], [address] [place] [phone] Notes/Report: White Blood Count 10.5 4.8-10.8 X10*3/uL Red Blood Count 5.02 4.60-5.80 X10*6/uL Hemoglobin 14.3 14.0-18.0 g/dl Hematocrit 45.8 42.0-52.0 % Mean Corpuscular Volume 91.2 80.0-98.0 fL Mean Corpuscular Hemoglobin 28.5 27.0-33.0 pg Mean Corpuscular HGB Conc 31.2 31.0-36.0 g/dl Red Cell Distribution Width 14.6 11.0-16.0 % Platelet Count 214 160-400 X10*3/uL Mean Platelet Volume 9.9 9.4-12.4 fL Neutrophils Percent Auto 77.4 45-73 % Imm Gran Pct Auto 0.4 0.0-0.4 % Lymphocytes Percent Auto 14.7 20-40 % Monocytes Percent Auto 5.6 2-11 % Eosinophils Percent Auto 1.0 0-4 % Basophils Percent Auto 0.9 0-2 % NRBC Pct Auto 0.0 0.0-0.2 /100WBC Neutrophils Absolute Auto 8.1 2.0-8.3 x10*3/u L Imm Gran Abs Auto 0.04 0.00-0.03 X10*3/uL Lymphocytes Absolute Auto 1.6 1.2-4.9 X10*3/u L Monocytes Absolute Auto 0.6 0.1-1.2 X10*3/uL Eosinophils Absolute Auto 0.1 0.0-0.4 X10*3/u L Basophils Absolute Auto 0.1 0.0-0.2 X10*3/uL NRBC Abs Auto 0.000 0.0-0.012 X10*3/uL Complete Blood Count Auto Di ff Reviewed date:05/05/2024 10:10:45 AM Interpretation: Performing Lab:[facility], [address] [place] [phone] Notes/Report: White Blood Count 8.9 4.8-10.8 X10*3/uL Red Blood Count 4.35 4.60-5.80 X10*6/uL Hemoglobin 12.6 14.0-18.0 g/dl Hematocrit 39.2 42.0-52.0 % Mean Corpuscular Volume 90.1 80.0-98.0 fL Mean Corpuscular Hemoglobin 29.0 27.0-33.0 pg Mean Corpuscular HGB Conc 32.1 31.0-36.0 g/dl Red Cell Distribution Width 14.4 11.0-16.0 % Platelet Count 230 160-400 X10*3/uL Mean Platelet Volume 9.6 9.4-12.4 fL Neutrophils Percent Auto 76.0 45-73 % Imm Gran Pct Auto 0.3 0.0-0.4 % Lymphocytes Percent Auto 14.1 20-40 % Monocytes Percent Auto 6.4 2-11 % Eosinophils Percent Auto 2.2 0-4 % Basophils Percent Auto 1.0 0-2 % NRBC Pct Auto 0.0 0.0-0.2 /100WBC Neutrophils Absolute Auto 6.8 2.0-8.3 x10*3/u L Imm Gran Abs Auto 0.03 0.00-0.03 X10*3/uL Lymphocytes Absolute Auto 1.3 1.2-4.9 X10*3/u L Monocytes Absolute Auto 0.6 0.1-1.2 X10*3/uL Eosinophils Absolute Auto 0.2 0.0-0.4 X10*3/u L Basophils Absolute Auto 0.1 0.0-0.2 X10*3/uL NRBC Abs Auto 0.000 0.0-0.012 X10*3/uL CT angio abdomen Reviewed date:05/05/2024 10:11:09 AM Interpretation: Performing Lab: Notes/Report: [address] [address] [address] Scan Report Signed with Addenda Patient: Irene Rebollar MR#: [id number] 63 : 1950 Acct:[id number] Age/Sex: 74 / M ADM Date: 05/03/24 Loc: .S3 372-[address]: Cristiano Serrano MD Ordering Physician: Raji Tellez MD Date of Service: 05/04/24 Procedure(s): CT angio abdomen Accession Number(s): [id number] cc: Paolo Samayoa [facility]-; Raji Tellez MD Report Number: [id number]: Total DLP = 2273.00 mGy-cm ADDENDUM This document has been electronically signed by: Gregory Garcia MD on 05/04/2024 18:44:57 ADDENDUM: This report was discussed with Pam Ledezma RN on May 04, 2024 18:51:00 EST. This document has been electronically signed by: Adri Garcia on 05/04/2024 18:52:07 Addendum Dictated By: Gregory Garcia MD Addendum Signed By: <Electronically signed by Gregory Garcia MD in OV> 05/04/241851 Addendum Cosigned By: DD/ /25/1843 TD/TT: 05/04/2407/25/1851 CLINICAL HISTORY: Lower GI bleed CT angiogram abdomen and pelvis per GI bleed protocol Comparison: CT/REG/SR - CT GI BLEED ABD PEL WO/W IVCON - 03/30/23 20:24 EST Findings: Vascular: There is active extravasation of contrast involving the sigmoid colon, reference axial images 143-156, series 9. There is severe atherosclerotic disease of the aorta. The inferior mesenteric artery origin does appear to be patent. The celiac artery and superior mesenteric artery also widely patent. Renal arteries are patent. No dissection or aneurysm. Nonvascular: The liver, gallbladder, spleen, adrenal glands and pancreas demonstrate no acute process. Low-density within the cephalad aspect of the spleen may reflect hemangioma or a cyst. Tiny rounded low-density lesions within the liver also likely reflects cysts. These are unchanged. Kidneys, ureters and bladder demonstrate no acute or suspicious abnormality. Extensive diverticulosis along the colon. The prostate gland is enlarged. No acute osseous finding. Impression: Findings are consistent with active GI bleed within the midsigmoid colon. Extensive diverticulosis is present. The mesenteric arteries are patent. This document has been electronically signed by: Gregory Garcia MD on 05/04/2024 18:44:57 Dictated By: Gregory Garcia MD Signed By: <Electronically signed by Gregory Garcia MD in OV> 05/04/241845 DD/ 43 TD/TT: 05/04/241843 Log Buyer: [place] [address] CT Scan Report Signed with [place] Patient: Gennaro Rebollar MR#: [id number] 63 : 1950 Acct:[id number] Age/Sex: 74 / M ADM Date: 05/03/24 Loc: [facility] 372-[address]: Cristiano Serrano MD Ordering Physician: Raji Tellez MD Date of Service: 05/04/24 Procedure(s): CT ang io abdomen Accession Number(s): [id number] cc: Paolo Samayoa [employer]-; Raji Tellez MD Report Number: [id number]: Total DLP = 2273.00 mGy-cm ADDENDUM This document has be en electronically signed by: Gregory Garcia MD on 05/04/2024 18:44:57 ADDENDUM: This report was disc ussed with Pam Ledezma RN on May 04, 2024 18:51:00 EST. This document has be en electronically signed by: Adri Garcia on 05/04/2024 18:52:07 Addendum Dictated By : Gregory Garcia MD Addendum Signed By: <Electronically signed by Gregory Garcia MD in OV> 05/04/241851 Addendum Cosigned By: DD/ /25/1843 TD/TT: 05/04/2407/25/1851 CLINICAL HISTORY: Lo wer GI bleed CT angiogram abdomen and pelvis per GI bleed protocol Comparison: CT/REG/S R - CT GI BLEED ABD PEL WO/W IVCON - 03/30/23 20:24 EST Findings: Vascular: There is active extravasation of contrast involving the sigmoid colon, reference axial imag es 143-156, series 9. There is severe atherosclerotic disease of the aorta. The inferior mesente chasidy artery origin does appear to be patent. The celiac artery an d superior mesenteric artery also widely patent. Renal arteries are patent. No dissection or aneurysm. Nonvascular: The liver, gallbladd er, spleen, adrenal glands and pancreas demonstrate no acute process. Low-density within t he cephalad aspect of the spleen may reflect hemangioma or a cyst. Tiny rounded low-den sity lesions within the liver also likely reflects cysts. These are unchanged. Kidneys, ureters and bladder demonstrate no acute or suspicious abnormality. Extensive diverticul osis along the colon. The prostate gland i s enlarged. No acute osseous finding. Impression: Findings are consist ent with active GI bleed within the midsigmoid colon. Extensive diverticul osis is present. The mesenteric arter ies are patent. This document has be en electronically signed by: Gregory Garcia MD on 05/04/2024 18:44:57 Dictated By: Gregory Garcia MD Signed By: <Electronically signed by Gregory Garcia MD in OV> 05/04/241845 DD/ 43 TD/TT: 05/04/241843 Log Buyer: Complete Blood Count Auto Di ff Reviewed date:05/05/2024 05:48:11 PM Interpretation: Performing Lab:[facility], [address] [place] [phone] Notes/Report: White Blood Count 8.3 4.8-10.8 X10*3/uL Red Blood Count 4.11 4.60-5.80 X10*6/uL Hemoglobin 11.9 14.0-18.0 g/dl Hematocrit 37.0 42.0-52.0 % Mean Corpuscular Volume 90.0 80.0-98.0 fL Mean Corpuscular Hemoglobin 29.0 27.0-33.0 pg Mean Corpuscular HGB Conc 32.2 31.0-36.0 g/dl Red Cell Distribution Width 14.6 11.0-16.0 % Platelet Count 215 160-400 X10*3/uL Mean Platelet Volume 9.9 9.4-12.4 fL Neutrophils Percent Auto 67.5 45-73 % Imm Gran Pct Auto 0.4 0.0-0.4 % Lymphocytes Percent Auto 21.0 20-40 % Monocytes Percent Auto 7.1 2-11 % Eosinophils Percent Auto 2.9 0-4 % Basophils Percent Auto 1.1 0-2 % NRBC Pct Auto 0.0 0.0-0.2 /100WBC Neutrophils Absolute Auto 5.6 2.0-8.3 x10*3/u L Imm Gran Abs Auto 0.03 0.00-0.03 X10*3/uL Lymphocytes Absolute Auto 1.7 1.2-4.9 X10*3/u L Monocytes Absolute Auto 0.6 0.1-1.2 X10*3/uL Eosinophils Absolute Auto 0.2 0.0-0.4 X10*3/u L Basophils Absolute Auto 0.1 0.0-0.2 X10*3/uL NRBC Abs Auto 0.000 0.0-0.012 X10*3/uL Hold Green Gel Reviewed date:05/05/2024 06:02:20 PM Interpretation: Performing Lab:[facility], [address] [place] [phone] Notes/Report: Hold Green Gel See Note Specimen held untested for 24 hours; Call to request Chemistry testing. Reason For Referral No Information Medications Medication SIG (Take, Route, Frequency, Duration) Notes Start Date End Date Status Lasix 40 MG 1 tablet Orally Once a day for 30 day(s) Active Vitamin D (Ergocalciferol) 66500 UNIT as directed Oral twice a week [...] MOUTH EVERY DAY Oral for 30 Active Immunizations Vaccine Route Administration Date Status Comme nts Influenza Unknown 01/05/2018 Administered Social History Tobacco Use: Social History Observation Description Date Details (start date - stop date) Former Smoker NA - NA Tobacco Use/Smoking Question Answer Notes Patient is [...] Never (0 point) Points 1 Interpretation Negative Section Notes: Nonsmoker x 5 years; no sig alcohol Problems Problem Type SNOMED Code ICD Code Onset Dates Problem Status W/U Status Risk Notes Problem 713390659 Encounter for screening for malignant neoplasm of colon (Z12.11) Active confirmed Problem 493873924 History of adenomatous polyp of colon (Z86.010) Active confirmed Problem 27775498 Iron deficiency (E61.1) Active confirmed Problem Diverticular disease of colon (852483079) Diverticulosis of large intestine without hemorrhage (K57.30) Active confirmed Problem 383517962623347 Preprocedural examination (Z01.818) Active confirmed Problem 033726880 Gastroesophageal reflux disease, esophagitis presence not specified (K21.9) Active confirmed Plan Of Treatment Pending Test Test Name Order Date GI BIOPSY 10/22/2018 Future Test Test Name Order Date UPPER GI ENDOSCOPY 07/15/2018 COLONOSCOPY 07/15/2018 Insurance Providers Payer Name Payer Address Payer Phone Subscriber Number Group Number Insured Name Patient Relationship to Insured Coverage Start Date Coverage End Date MEDICARE OF [place] [address] [place] [id number] IRENE REBOLLAR Self - patient is the insured MED[employer] ATTN CLAIMS [address] [place] [address] [phone] [id number] IRENE REBOLLAR Self - patient is the insured Medical (General) History Medical History History ICD Code Denies DE,CVA,renal disease NIDDM COPD Colonoscopy in 2006 with mul tiple tubular adenoms removed, 1 with moderate dysplasia GERD--UGI in 2016 with a hiatal hernia Neuropathy in arms and legs HTN Edema Surgical History Surgery Date(Month/Year) Right inguinal hernia repair x 2 Heel spur
[2024-05-06 10:43] LABS: Anion Gap 9 (12-20); Blood Urea Nitrogen 7 mg/dL (9-16); Calcium 8.1 mg/dL (8.4-10.2); Carbon Dioxide 22 mmol/L (22-29); Chloride 113 mmol/L (96-108); Creatinine Clr Calc Pharmacy 123.7; Estimated Glomerular Filt Rate > 60; Glucose Random 116 mg/dL (60-115); Potassium 3.8 mmol/L (3.3-5.1); Sodium 140 mmol/L (135-145)
--- NOTE | 2024-05-06 10:48 | P.DS_ITS ---
DS: Providers Provider Date of Service: 05/06/24 Date of admission: 05/03/24 17:04 Date of discharge: 05/06/24 Primary care physician: DAPHNIE WareP- Consults: 05/03/24 15:19 Consult to Gastroenterology Stat Consulting Provider: Raji Tellez Reason for consultation: gi bleeding Has provider been notified: Yes 05/03/24 17:09 Consult to Gastroenterology Routine Consulting Provider: Raji Tellez Reason for consultation: Rectal bleeding x3 days, melena DS: Diagnosis Discharge Diagnosis (1) GI (gastrointestinal bleed): Status: Acute (2) Acute blood loss anemia: Status: Acute (3) Diverticular hemorrhage: Status: Acute (4) Rectal bleeding: Status: Acute (5) Acidosis, lactic: Status: Acute DS: Summary Hospital Course Hospital Course: Admission note HPI Pt is a 74-year-old male with a PMH significant for?HTN, HLD, ddo-julzoty-xfhxhvhop type 2 diabetes, BPH, and GERD who presents to the ED for evaluation of rectal bleeding x3 days. Pt states he initially noticed bright red blood per rectum 3 days ago x1 episode. Since has noticed a steady stream of maroon and black-colored stool often with dark-colored clots. Minimal abdominal cramping and discomfort. Some nausea this morning but no vomiting. Has felt weakness in his legs, though this has been ongoing for the past few months and is currently being worked up outpatient by vascular. Pt reports bleeding has been significant since Thursday morning until 13:00 today. Denies chest pain/pressure, palpitations. No acid reflux symptoms. Denies lightheadedness or dizziness. Denies shortness or breath, difficulty breathing, cough. Of note, pt has a hx of rectal bleeding on 03/30/2023 thought to be secondary to diverticulosis. In the ED pt was tachycardic to 110 and initially hypertensive at 156/104. Labs were significant for lactic acid 3.0 and stool positive for occult blood, otherwise grossly unremarkable and around baseline pt. No leukocytosis. Stable H&H 16.6/51.7. No significant electrolyte abnormalities. Renal function WNL. Hepatic function baseline. Pt was treated with Protonix and IVF. Pt will be admitted to the hospital under observation for treatment further evaluation of rectal bleeding concerning for GI bleed. Hospital course The patient was admitted for evaluation of Rectal bleeding with acute blood loss anemia as CTA showed diverticular bleeding. tried to transfer him but other hospitals refused. no more bleeding for last 48 hours. last bloody bowel motion 3/5 7pm. Hb dropped to 12 and remained stable at that level. He has a Hx of GI bleed last year attributed to diverticulosis. Kept on Protonix IV. Dr Tellez from GI did EGD with no source of bleeding identified. Aspirin was held and will continue to hold it for 1-2 weeks until he sees his PCP if it is needed to be restarted. He was also noted to have Acute lactic acidosis likely secondary to metformin use, not sepsis. resolved. Discharge plan Stop Aspirin for now, discuss in 1-2 weeks with PCP if you need to restart it Have high fiber diet come back to ED for any bloody bowel motions Time Attestation Discharge Coordination Time (in mins): 38 Quality: Safe Use of Opioids Does Pt have an Active Cancer Diagnosis on the Problem List?: No Quality: Stroke Does the patient have a stroke diagnosis?: No Physical Exam Vital Signs: Vital Signs: Last Vital Signs Temp 96.8 F 05/06/24 07:25 Pulse 98 05/06/24 09:00 Resp 18 05/06/24 07:25 BP 123/58 L 05/06/24 07:25 Pulse Ox 95 05/06/24 07:25 O2 Del Method Room Air 05/06/24 07:25 BMI result Body Mass Index 32.8 Const: Other: Constitutional : interactive, not in distress Cardiovascular : no JVP, no lower extremity edema Respiratory : bilateral chest movement, not in resp distress Gastrointestinal: soft, lax, Non tender Skin : Warm, Dry Neurological : Alert & oriented , No focal deficit DS: Data Data Completed and Pending Completed studies during hospitalization [Text1]: Procedures Excision of Cecum, Via Natural or Artificial Opening Endoscopic, Diagnostic (03/30/23) Excision of Sigmoid Colon, Via Natural or Artificial Opening Endoscopic, Diagnostic (03/30/23) Pending studies at discharge: Pending at discharge 05/04/24 16:22 Surgical [PTH] Routine Labs on day of discharge: Laboratory Results - last 24 hr 05/05/24 05/06/24 17:32 05:57 WBC 8.3 7.1 RBC 4.11 L 4.11 L Hgb 11.9 L 11.9 L Hct 37.0 L 37.5 L MCV 90.0 91.2 MCH 29.0 29.0 MCHC 32.2 31.7 RDW 14.6 14.6 Plt Count 215 214 MPV 9.9 10.2 Immature Gran % (Auto) 0.4 0.6 H Neut % (Auto) 67.5 67.9 Lymph % (Auto) 21.0 19.4 L Bryan % (Auto) 7.1 7.1 Eos % (Auto) 2.9 4.0 Baso % (Auto) 1.1 1.0 Lymph # (Auto) 1.7 1.4 Bryan # (Auto) 0.6 0.5 Eos # (Auto) 0.2 0.3 Baso # (Auto) 0.1 0.1 Abs Immat Gran (auto) 0.03 0.04 H Absolute Neuts (auto) 5.6 4.8 Absolute Nucleated RBC 0.000 0.000 Nucleated RBC % (auto) 0.0 0.0 Sodium 140 Potassium 3.8 Chloride 113 H Carbon Dioxide 22 Anion Gap 9 L BUN 7 L Creatinine 0.69 Estim Creat Clear Calc 123.7 Estimated GFR > 60 Random Glucose 116 H Calcium 8.1 L Preliminary micro results at discharge 05/03/24 14:27 Blood Culture - Preliminary Blood - Venous No growth after 48 hours. 05/03/24 14:27 Blood Culture - Preliminary Blood - Venous No growth after 48 hours. Imaging Chest x-ray: Radiologist's impression: CTa Abd\Pel Impression: Findings are consistent with active GI bleed within the midsigmoid colon. Extensive diverticulosis is present. The mesenteric arteries are patent. This document has been electronically signed by: Gregory Garcia MD on 05/04/2024 18:44:57 Discharge Plan Discharge Anticipated Discharge Date/Time: 05/06/24 10:44 Patient Disposition: Home, Self-Care Discharge Diagnosis: Diverticular bleed Acute anemia Referrals: Geovani Samayoa, [employer]- [Primary Care Provider] - 1 Week Discharge Medications: Continued metformin 1,000 mg tablet 1,000 mg PO BID 90 Days Qty: 180 3RF Jardiance 10 mg tablet 10 mg PO DAILY Qty: 90 1RF verapamil 240 mg capsule,ext rel. pellets 24 hr 240 mg PO DAILY Qty: 90 3RF Rx Instructions: Dose was increased Corlanor 5 mg tablet 5 mg PO DAILY 90 Days Qty: 90 3RF Rx Instructions: must administer with a meal/food Trelegy Ellipta 100-62.5-25 mcg blister with device 2 inh INHALATION DAILY diltiazem HCl 240 mg Capsule,Extended Release 24hr 240 mg PO DAILY vitamin B complex Tablet 1 tab PO DAILY rosuvastatin 40 mg Tablet 40 mg PO DAILY guaifenesin [Mucinex] 1,200 mg Tablet Extended Release 12hr 1,200 mg PO MOWEFR Combivent Respimat 20-100 mcg/actuation Mist 1 puff INHALATION QID PRN (Reason: Shortness Of Breath Or Wheezing) Rx Instructions: space evenly during waking hours meloxicam 15 mg tablet 15 mg PO BID omeprazole 40 mg capsule,delayed release(DR/EC) 40 mg PO DAILY@0630 cholecalciferol (vitamin D3) 50 mcg (2,000 unit) capsule 50 mcg PO MOWEFR tamsulosin [Flomax] 0.4 mg capsule 0.4 mg PO BID Qty: 180 2RF finasteride [Proscar] 5 mg tablet 5 mg PO DAILY 90 Days Qty: 90 3RF Held aspirin [Adult Aspirin Regimen] 81 mg tablet,delayed release (DR/EC) 81 mg PO DAILY Hold Instructions: Discuss with PCP the need to restart Aspirin in 1-2 weeks. Discontinued metronidazole 500 mg tablet 500 mg PO Q8H 7 Days Qty: 21 0RF Discharge Orders: Discharge Order (Routine); Ordered 05/06/24 Ordered By: Cristiano Serrano Diet: Advance to usual diet Activity on Discharge: As tolerated Stand Alone Forms: Patient Portal Discharge page Print Language: Jordanian Care Plan Goals: Stop Aspirin for now, discuss in 1-2 weeks with PCP if you need to restart it Have high fiber diet Go to ED for any bloody bowel motions Health Concerns: Anemia Diverticular bleeding Plan of Treatment: Hold Aspirin Monitor as outpatient Assessment: as above
--- NOTE | 2024-05-06 10:53 | MHC.CM.PN ---
Addendum entered by Kelly Rain 05/06/24 11:11: IMM DELIVERED Original Note: DP: PT HAS BEEN MEDICALLY CLEARED FOR DC HOME, NO SERVICES. SON WILL TRANSPORT.
[2024-05-06 11:39] VITALS: BP 162/72; PULSE 114; RESP 18; TEMP 36; O2SAT 93
[2024-05-06 11:41] VITALS: BP 162/72; PULSE 114; RESP 18; TEMP 36; O2SAT 93
== END 2024-05-06 11:43 | disposition home or self-care (01) | DRG 378 ==
LOC: HO.ED 16:14 → HO.EDOVER 17:50 → HO.S3 05-04 14:56 → HO.EDOVER 05-06 09:39
PROVIDERS: Internal Medicine; Physician Assistant Medical; Admitting Provider Student in an Organized Health Care Education/Training Program; Emergency Provider Emergency Medicine; PCP Nurse Practitioner Family; Visit Provider Student in an Organized Health Care Education/Training Program
PROC: 0DJ08ZZ Inspection of Upper Intestinal Tract, Via Natural or Artificial Opening Endoscopic (ICD-10-PCS; CPT 43235; principal; 2024-05-04 15:20)
DX: K57.31 Diverticulosis of large intestine without perforation or abscess with bleeding (principal); D62 Acute posthemorrhagic anemia; E87.21 Acute metabolic acidosis; N40.0 Benign prostatic hyperplasia without lower urinary tract symptoms; E11.9 Type 2 diabetes mellitus without complications; K22.70 Barrett's esophagus without dysplasia; K44.9 Diaphragmatic hernia without obstruction or gangrene; K21.9 Gastro-esophageal reflux disease without esophagitis; Z79.84 Long term (current) use of oral hypoglycemic drugs; Z79.899 Other long term (current) drug therapy
CPT/HCPCS: 36415; 74175; 80048; 80053; 82272; 82947; 83605; 85025; 85610; 86850; 86900; 86901; 87040; 88305; 88313; 88342; 99221; 99285; J2003; J2470; J2704; J3010; Q9967

== ENCOUNTER 2024-05-03 17:04 | Outpatient (BNV) | payer MEDICARE, SELFPAY | END 2024-05-04 17:25 | PROVIDERS: Admitting Provider Student in an Organized Health Care Education/Training Program; Emergency Provider Emergency Medicine; PCP Nurse Practitioner Family; Visit Provider Radiology Vascular & Interventional Radiology | DX: K57.90 Diverticulosis of intestine, part unspecified, without perforation or abscess without bleeding (principal) | CPT/HCPCS: 74175 ==

== ENCOUNTER → 2024-05-03 17:04 | Outpatient (BNV) | payer MEDICARE, SELFPAY | PROVIDERS: Admitting Provider Student in an Organized Health Care Education/Training Program; Emergency Provider Emergency Medicine; PCP Nurse Practitioner Family; Visit Provider Student in an Organized Health Care Education/Training Program | DX: K62.5 Hemorrhage of anus and rectum (principal) | CPT/HCPCS: 99222; 99232; 99239; 99499 ==

== ENCOUNTER 2024-05-11 10:38 | Outpatient (AMB) | payer MEDICARE, SELFPAY ==
--- NOTE | 2024-05-11 11:00 | MHC.PC.OV ---
Vital Signs 05/11/24 11:02 Height 6 ft Weight 244 lb BMI 33.1 BP 132/60 Blood Pressure Location Rt brachial Position Sitting Pulse 92 Pulse Source Pulse Oximeter Pulse Oximetry (%) 96 Oxygen Delivery Method Room Air Intake Visit Reasons: Rectal bleeding, htn Allergies No Known Allergies Allergy (Verified 05/11/24 11:02) Tobacco use date assessed: 05/11/24 Fall risk assessment: No Falls in past year Last assessed Fall Risk: 05/11/24 Dental Screening Dental Screen Date: 04/28/24 HPI Rectal bleeding, htn HPI Details Chief Complaint Follow-up after hospital discharge for diverticular bleeding. History of Present Illness The patient is a 74-year-old male presenting with a hospital follow-up for diverticular bleeding. He was admitted on May 03, 2024, due to rectal bleeding over a period of three days, initially bright red and later progressing to darker maroon with clots. Associated symptoms included mild abdominal cramping. Lab results showed elevated lactic acid and a positive test for occult blood with stable hematocrit and hemoglobin levels. No abnormalities in electrolytes were found. A CTA discovered diverticular bleeding, and after the inability to transfer to another facility, he exhibited no bleeding over the following 48 hours. An endoscopy performed showed no identifiable source of bleeding, and aspirin administration was held with proton pump inhibitors given as treatment. The patient's health history includes diabetes mellitus, benign prostatic hyperplasia, essential hypertension, and hyperlipidemia. Presently, he reports slight abdominal discomfort, normal bowel habits, and dietary intake, with no recurrence of bleeding events. Social History - Substance use, family status, educational background, employment, and housing: Not discussed - Activity level: Not discussed - Nutritional intake: The patient reports a normal diet. Health Maintenance - No health maintenance or preventive care explicitly discussed. Review of Systems - Gastrointestinal: Denies any further rectal bleeding, normal bowel movements - General: Denies fever or chills. - Neurological: denies weakness - Cardiovascular: Denies chest pain or palpitations. - Respiratory: Denies difficulty breathing. denies ay fatigue Physical Exam General: Cooperative, healthy appearing, comfortable, no acute distress and well developed Orientation: Patient oriented x3 Limitations: No limitations Head: Normal to inspection Ears: Hearing grossly normal bilaterally Nose: Normal external nose present Face and sinus: Normal facial exam Eyes: Appearance normal, both eyes and all related structures Neck: Normal visual inspection and Yes full ROM Respiratory: Diminished bilaterally, able to speak in complete sentences Cardiovascular: Systolic murmur noted. Regular rate and rhythm. Normal S1 and S2 GI: Normal to inspection. Soft to palpation and nontender Skin: No rashes or lesions noted Neuro: Patient oriented x3 Extremities: Normal to inspection Results - Labs: Lactic acid elevated, stool positive for occult blood, hematocrit and hemoglobin stable, no electrolyte abnormalities, hepatic and renal function normal. - Imaging: CTA indicated diverticular bleeding. Endoscopy showed no bleeding source identified. Plan The current management for the patient?s diverticular bleeding emphasizes monitoring, especially following the endoscopy that identified no active bleeding source. Withheld aspirin and continued proton pump inhibitor therapy are planned to maintain stability. Additional CBC will clarify his hematological status. The patient will be closely observed for any reemergence of bleeding, and given his comprehensive health history with hypertension and systolic murmur, attention will be paid to any cardiovascular strains or symptoms. He has been instructed on identifying urgent scenarios warranting emergency care and provided ways to contact the lye peel operator should questions or issues arise. PT INSTRUCTED TO RESTART ASA IN APPROX 1 WEEK. Discussion Notes During the consultation, I advised the patient about the results from the endoscopy, emphasizing the lack of an identifiable bleeding source and the implications for further management. We reviewed the importance of continuing proton pump inhibitor therapy and withholding aspirin temporarily. I addressed his preexisting conditions and their potential impact on his recovery and underscored emergency referral signals, primarily focusing on any recurrence of symptoms indicative of bleeding. The patient affirmed comprehension of the guidance provided, and we discussed his adverse symptoms, preventive strategies, and the prudent steps in detecting exacerbations. I confirmed follow-up arrangements and gave explicit instructions for interim concerns about any newly developing issues should they arise. Patient Instructions - Monitor for any recurrence of rectal bleeding or severe abdominal pain. - Continue normal diet unless otherwise instructed. - Attend the lab today for blood work to monitor counts. - Contact your lye peel operator or visit the ER if any new or worsening symptoms develop. - Maintain compliance with proton pump inhibitor therapy as directed. [facility] TCM Information Date of Discharge 05/06/24 Discharged From [facility] Interactive Contact Date (Reference documentation from this date) 05/09/24 [facility] Medical History Diabetes Dyslipidemia Hyperlipidemia Inappropriate sinus tachycardia Surgical History Hx of hernia repair Hx of cardiac cath Family History Paternal Grandfather CAD (coronary artery disease) Father Pulmonary disease Maternal Grandmother Diabetes mellitus Social History Household Members: Children Housing: House Are you a primary medicare coordinator to a significant other at home: No Do you presently have visiting nurse or other home services: No Alcohol intake: current Alcohol intake frequency: holidays/special occasions only Patient Tobacco Use Status: Former Tobacco user Tobacco use type: Cigarette e-Cigarette/Vaping Use: Never Used Second Hand Smoke Exposure: No Advance Directives Date on File: 12/14/23 service: No Current occupational status: retired Cognitive needs: No Hearing needs: No Vision needs: No Questionnaire Thrive Questionnaire Date Thrive assessed: 05/04/24 RAMON-7 AMB Questionnaire RAMON-7 Date RAMON - 7 assessed: 04/28/24 Source: Developed by Drs. Raji Jones, Joanna Lopez, Nathaniel Edgar and colleagues, with an educational galen from [employer]. Physical exam (Primary Care) Vital Signs: Last Vital Signs Pulse 92 05/11/24 11:02 BP 132/60 05/11/24 11:02 Pulse Ox 96 05/11/24 11:02 Oxygen Delivery Method Room Air 05/11/24 11:02 BMI result Body Mass Index 33.1 Tobacco/Smoking Status: Tobacco use Status Tobacco use date assessed 05/11/24 05/11/24 11:04 Patient Tobacco Use Status Former Tobacco user 05/11/24 11:04 Tobacco use type Cigarette 05/11/24 11:04 e-Cigarette/Vaping Use Never Used 05/11/24 11:04 Thrive Assessment: Date of Thrive Assessment Date Thrive assessed 05/04/24 05/11/24 11:04 Coding Level of Care Code Est Pt Level 3 (98343) Diagnoses GI (gastrointestinal bleed) K92.2 GI bleed type/associated pathology: unspecified gastrointestinal hemorrhage type Acute blood loss anemia D62 Diverticular hemorrhage K57.31 Assessment & Plan Assessment & Plan (1) GI (gastrointestinal bleed): Code(s): K92.2 - Gastrointestinal hemorrhage, unspecified Category: Medical Qualifiers: GI bleed type/associated pathology: unspecified gastrointestinal hemorrhage type Qualified Code(s): K92.2 - Gastrointestinal hemorrhage, unspecified (2) Acute blood loss anemia: Code(s): D62 - Acute posthemorrhagic anemia Category: Medical Plan: . (3) Diverticular hemorrhage: Code(s): K57.31 - Diverticulosis of large intestine without perforation or abscess with bleeding Category: Medical Plan . Orders: Orders Comprehensive Met. Panel Today D62 - Acute posthemorrhagic anemia, K57.31 - Diverticulosis of large intestine without perforation or abscess with bleeding, K92.2 - Gastrointestinal hemorrhage, unspecified Complete Blood Count Auto Diff Today D62 - Acute posthemorrhagic anemia, K57.31 - Diverticulosis of large intestine without perforation or abscess with bleeding, K92.2 - Gastrointestinal hemorrhage, unspecified Medications: New ezetimibe 10 mg PO DAILY 90 tabs 0RF
[2024-05-11 11:02] VITALS: BP 132/60; PULSE 92; O2SAT 96; BMI 33.1
--- OUTSIDE RECORDS SUMMARY | 2024-05-11 12:18 | XMS_ITS ---
Author Organization [facility] Florentin [place] Address [address] [facility] [place] [address] Care Team Providers Care Senior Policy Analyst Name Role Phone Geovani Sears Primary Care Provider Unav ailable Crow Morris Unavailable [phone] Allergies No Known Allergies REASON FOR VISIT [...] Ordered Date Performed Result Body Sit e 20493-AJSFAEL NAIL, 6 OR MORE 02/02/2024 N/A 42968-VPMI SKIN LESIONS, 2 TO 4 02/02/2024 N/A Encounters Encounter Location Date Provider Diagnosis [facility] [place] [address] [place] [address] 02/02/2024 Crow Morris Type 2 diabetes mellitus with diabetic polyneuropathy E11.42 and Tinea unguium B35.1 Assessments Encounter Date Diagnosis (ICD Code) Assessment Notes Treatment Notes Treatment Clinical Notes Section Notes 02/02/2024 Type 2 diabetes mellitus with diabetic polyneuropathy (ICD-10 - E11.42) 02/02/2024 Tinea unguium (ICD-10 - B35.1) 02/02/2024 Other Plan Of Treatment Pending Test Test Name Order Date 66875-EJRANHU NAIL, 6 OR MORE 02/02/2024 88547-CWDA SKIN LESIONS, 2 TO 4 02/02/20 24 [...] use of a nail nipper and/or dremel-type regrinder operator, to a more viable healthy nail [...] to maintain effectiveness in symptomatic relief - 50264 Keratoma Treatment Parring or Cutting o f Benign Hyperkeratotic Lesion(s) (-56) 2-4 Lesions - The Benign hyperkeratotic lesions, ( 4) in total, locations as stated and described in exam, were pared, and/or cut utilizing a sterile 15 blade, tissue nippers, and/or power dremel instrumentation - 24368 Progress Notes * Cody OSEGUERA WDOB: 3 (73 yo M)Acc No.[id number]:02/02/2024 Progress Note Patient:?KETURAH, Cody W Provider:?Crow Morris DPM :1950???Age:73 Y???Sex:Male Con e:02/02/2024 Address:[address] [place] [phone] Pcp:LOU Sun Subjective: * Chief Complaints: * [...] Repair 2000 * [place] Diagno stic [place] [place] [...] use of a nail nipper and/or dremel-type regrinder operator, to a more viable healthy nail [...] to maintain effectiveness in symptomatic relief - 24002.?Keratoma Treatment:?Parring or Cutting of Benign Hyperkeratotic Lesion(s)?(-56) 2-4 Lesions - The Benign hyperkeratotic lesions, ( 4) in total, locations as stated and described in exam, were pared, and/or cut utilizing a sterile 15 blade, tissue nippers, and/or power dremel instrumentation - 20371.? * Procedure Codes:?66079 DEBRI DE NAIL, 6 OR MORE, Modifiers: XS 81116 TRIM SKIN LESIONS, 2 TO 4, Modifiers: XS * Follow Up:?prn * Images: * Sign off status: Completed true * Provider:?Crow Morris DPM Date:?2023 Generated for Kirill kaplan/Lily/eTransmitting on:?05/11/2024 12:18 PM EDT History and Physical Notes * HPI (History [...]
--- OUTSIDE RECORDS SUMMARY | 2024-05-11 12:18 | XMS_ITS ---
Author Organization [facility] Address [address] [place] [address] Care Team Providers Care Assistant Oceanographer Name Role Phone PAOLO TERRELL Primary Care Provider Raji Salas Unavailable [phone] Ezekiel Luu Jr Unavailable REASON FOR VISIT GI bleed Encounters Encounter Location Date Provider Diagnosis [facility] Inpatient [address] [place] [phone] 04/01/2023 Ezekiel Luu Jr Plan Of Treatment No Information Progress Notes * ANA ROSA, IRENE WDOB: 3 (74 yo M)Acc No.[id number]:04/01/2023 COLON WITH MAC Patient:?IRENE OSEGUERA Provider:?Ezekiel Luu MD :1950???Age:73 Y???Sex:Male Con e:04/01/2023 Address:[address] [place], [place] [id number] Pcp:PAOLO TERRELL Subjective: * Chief Complaints: * ???1. GI bleed. * Medical History:? Objective: * Vitals:? Assessment: Plan: * Treatment: * * The named appointment provid er may or may not be the originator of this progress note, and it is not deemed complete until electronically signed by the appointment provider. Sign off status: Pending * Provider:?Ezekiel Luu MD Date:?0 04/01/2023 Generated for Printi ng/Facelsog/eTransmitting on:?05/11/2024 12:18 PM EDT
--- OUTSIDE RECORDS SUMMARY | 2024-05-11 12:19 | XMS_ITS ---
Author Organization [facility] Address [address] [place] [address] Care Team Providers Care Instructional Design Consultant Name Role Phone Geovani Sears Primary Care Provider Unav ailable Crow Morris Unavailable [phone] Encounters Encounter Location Date Provider Diagnosis [address] [address] 05/03/2024 Crow Morris Plan Of Treatment No Information Progress Notes * Cody REBOLLAR WDOB: [birth year] (74 yo M)Acc No.[id number]:05/03/2024 Progress Note Patient:Cody STILES Provider:?Crow Morris DPM :1950???Age:74 Y???Sex:Male Con e:05/03/2024 Address:[address] [place] [address] [phone] Pcp:LOU Sun Subjective: * Chief Complaints: * ??? * Medical History:? Objective: * Vitals:? Assessment: Plan: * Treatment: * Images: * The named appointment provid er may or may not be the originator of this progress note, and it is not deemed complete until electronically signed by the appointment provider. Sign off status: Pending * Provider:?Crow Morris DPM Date:?2024 Generated for Kirill kaplan/Lily/eTransmitting on:?05/11/2024 12:19 PM EDT
--- OUTSIDE RECORDS SUMMARY | 2024-05-11 12:19 | XMS_ITS ---
Author Organization [facility] Address [address] [place] [address] Care Team Providers Care Railway Signalling Engineer Name Role Phone PAOLO TERRELL Primary Care Provider Raji Salas [phone] REASON FOR VISIT pathology/ 3yr colon recall Encounters Encounter Location Date Provider Diagnosis [facility] [address] [place] [address] 04/09/2023 Raji Tellez Plan Of Treatment No Information Progress Notes * IRENE OSEGUERA WDOB: [birth year] (73 yo M)Acc No.[id number]:04/09/2023 Patient:?IRENE OSEGUERA :1950???Age:73 Y???Sex:Male Address:[address] [place] [address] * true * Date:? Generated for Raqueli eusebio/Lily/eTransmitting on:?05/11/2024 12:19 PM EDT
--- OUTSIDE RECORDS SUMMARY | 2024-05-11 12:19 | XMS_ITS | Patient Health Record ---
Author Organization [facility] Florentin marguerite [place] Address [address] [facility] [place] [address] Care Team Providers Care Bank Appraiser Name Role Phone Geovani Sears Primary Care Provider Unav ailable Crow Morris Unavailable [phone] Allergies No Known Allergies Results Component Value [...] Problem Acquired hammer toe of right foot (9253209887318913 ) Other hammer toe(s) (acquired), right foot (M20.41) Active confirmed Problem Acquired hammer toe of left foot (9338181763532654 ) Other hammer toe(s) (acquired), left foot (M20.42) Active confirmed Problem Polyneuropathy due to type 2 diabetes mellitus (011358202) Type 2 diabetes mellitus with diabetic polyneuropathy (E11.42) Active confirmed Vital Signs Blood pressure diastolic 74 mm Hg 02/02/2024 Height 6 ft in 02/02/2024 Blood pressure systolic 138 mm Hg 02/02/2024 Weight 245 lbs 02/02/2024 BMI 33.22 kg/m2 02/02/2024 Procedures Procedure Date Ordered Date Performed Result Body Sit e 41180-ZRSTMEW NAIL, 6 OR MORE 11/03/2023 N/A 04534-Xiybwjfd Plate 11/03/2023 N/A 98953-TNOM SKIN LESIONS, 2 TO 4 11/03/2023 N/A 04523-FOHLMFA NAIL, 6 OR MORE 02/02/2024 N/A 45512-QFGM SKIN LESIONS, 2 TO 4 02/02/2024 N/A Encounters Encounter Location Date Provider Diagnosis [address] [address] 11/03/2023 Crow Morris Type 2 diabetes mellitus with diabetic polyneuropathy E11.42 ; Tinea unguium B35.1 ; Ingrown nail L60.0 ; Other hammer toe(s) (acquired), right foot M20.41 and Other hammer toe(s) (acquired), left foot M20.[address] [address] 02/02/2024 Crow Morris Type 2 diabetes mellitus with diabetic polyneuropathy E11.42 and Tinea unguium B35.[address] [address] 05/03/2024 Crow Morris [address] [address] 07/23/2023 Crow Morris Assessments Encounter Date Diagnosis [...] Treatment Pending Test Test Name Order Date 46871-LXLPHGA NAIL, 6 OR MORE 11/03/2023 23194-KRCARPZ NAIL, 6 OR MORE 02/02/2024 15971-Hrzqyezz Plate 11/03/2023 35566- Debride <25 sq cm 07/23/2018 31241 I&D ABSCESS- SIMPLE,SINGLE 019 53133-ZBBE SKIN LESIONS, 2 TO 4 11/03/19 19960-KAID SKIN LESIONS, 2 TO 4 02/02/20 Insurance Providers Payer Name Payer Address Payer Phone Subscriber Number Group Number Insured Name Patient Relationship to Insured Coverage Start Date Coverage End Date Medicare National Govt [employer] [facility] [address] [place] [address] [id number] Cody Rebollar Self - patient is the insured 7 [employer] Blue Shield [address] [place] [address] [id number] Cody Rebollar Self - patient is the [...] Hernia Repair 2000 Hospitalization History Reason Date(Month/Year) [facility] [place] Throwing up blood 04/2023
--- OUTSIDE RECORDS SUMMARY | 2024-05-11 12:19 | XMS_ITS ---
Author Organization [facility] Address [address] [place] [address] Care Team Providers Care Ammonia Technician Name Role Phone Geovani Sears Primary Care Provider Unav ailable Crow Morris Unavailable [phone] REASON FOR VISIT SD cx 3/4 Encounters Encounter Location Date Provider Diagnosis [address] [address] 05/03/2024 Crow Morris Plan Of Treatment No Information Progress Notes * KETURAHCody MARTINEZ WDOB: 3 (74 yo M)Acc No.[id number]:05/03/2024 Patient:?Cody OSEGUERA :1950???Age:74 Y???Sex:Male Address:[address] [place] [address] * * Date:?
--- OUTSIDE RECORDS SUMMARY | 2024-05-11 12:20 | XMS_ITS | Patient Health Record ---
Author Organization [facility] Address [address] [place] [address] Care Team Providers Care Trim Machine Operator Name Role Phone PAOLO SAMAYOA Primary Care Provider Raji Salas Unavailable [phone] Allergies Allergen (clinical drug ingredient) Drug/Non Drug Allergy documented on EMR Reaction Allergy Type Onset Date Status Aloe Aftersun Unknown Drug Allergy Act alejandro Results Component Value Reference Range Notes Complete Blood Count Auto Di ff Reviewed date:05/05/2024 10:11:31 AM Interpretation: Performing Lab:[facility], [address] [place] [phone] Notes/Report: White Blood Count 10.5 4.8-10.8 X10*3/uL [...] ff Reviewed date:05/05/2024 10:10:45 AM Interpretation: Performing Lab:[facility], [address] [place] [phone] Notes/Report: White Blood Count 8.9 4.8-10.8 X10*3/uL [...] X10*3/uL NRBC Abs Auto 0.000 0.0-0.012 X10*3/uL Pathology Reviewed date:05/09/2024 06:04:55 PM Interpretation: Performing Lab:[facility], [address] [place] [phone] Notes/Report: ----- Name: KeturahIrene Age/Sex: 74/M : 1950 Unit#: [id number] Attend Dr: Cristiano Serrano MD Re05/03/24 Status : DIS IN Location: [facility] 372-1 Disch: 05/06/24 ----- SPEC : [id number] RECD : 05/05/24 STATUS: BE GOMEZ NUM: [id number] IMANI: 05/04/24-[address] [facility] [address]: Raji Tellez MD ENTERED: 05/05/24-08 54 SP TYPE: Surgical OTHR DR: Cristiano Serrano MD, John J [facility]- ORDERED: Gross Micro L4, IHC, Special st. 2, H. pylori, AB/PAS Diagnosis EG junction, 35 cm, biopsy: - Cardiac-type mucos a with moderate chronic inactive inflammation; no intestinal metaplasia seen. - Negative for H.pylori. - Squamous epitheliu m within normal limits. Clinical History Pre-Op Dx: Rectal bleeding Post-Op Dx: Hiatal hernia, reflux Microscopic Description Microscopic sections examined. No metaplastic changes are seen, supported by AB/PAS stains; no Helicobacter orga nisms are seen, supported by H. pylori immunostain. Material Received EG junction bx's at 35, r/o Walker's Gross Description Received in formalin labeled ?EG junction bx's at 35, rule out Walker's? are 4 ashford-white irregular and rectan gular tissue fragments ranging from 0.15-0.4 cm, submitted in toto in a cassette labeled A. CEDS Special studies orde red and performed: Immunostain for H. pylori; AB/PAS stains Copies To: Cristiano Serrano MD [address] [place], [place] [id number] Paolo Samayoa [address] [address] CONTINUED ON NEXT PAGE ----- Name: Irene Rebollar Hernan Age/Sex: 74/M : 1950 Unit#: [id number] Attend Dr: Cristiano Serrano MD Re05/03/24 Status : DIS IN Location: [facility] 372-1 Disch: 05/06/24 ----- SPEC : [id number] RECD : 05/05/24 STATUS: BE GOMEZ NUM: [id number] IMANI: 05/04/[address] [facility] [address]: Raji Tellez MD ENTERED: 05/05/24- 54 SP TYPE: Surgical OTHR DR: Cristiano Serrano MD, John J [facility]- ORDERED: Gross Micro L4, IHC, Special st. 2, H. pylori, AB/PAS Copies To: (Continued) Raji Tellez MD [address] [place] [address] ----- Signed (signature on file) Milton Moss MD 05/09/24 4467 ----- END OF REPORT CT angio abdomen Reviewed date:05/05/2024 10:11:09 AM Interpretation: Performing Lab: Notes/Report: [address] [address] [address] Scan Report Signed with Addenda Patient: Irene Rebollar MR#: [id number] 63 : 1950 Acct:[id number] Age/Sex: 74 / M ADM Date: 05/03/24 Loc: .S3 372-[address]: Cristiano Serrano MD Ordering Physician: Raji Tellez MD Date of Service: 05/04/24 Procedure(s): CT angio abdomen Accession Number(s): [id number] cc: Paolo Samayoa [facility]-; Raji Tellez MD Report Number: [id number]: Total DLP = 2273.00 mGy-cm ADDENDUM This [...] in OV> 05/04/241845 DD/ 43 TD/TT: 05/04/241843 Honeycomb Blanket Maker: [place] [id number] CT Scan Report Signed with Addenda Patient: Gennaro Rebollar MR#: [id number] 63 : 1950 Acct:[id number] Age/Sex: 74 / M ADM Date: 05/03/24 Loc: .S3 372-[address]: Cristiano Serrano MD Ordering Physician: Raji Tellez MD Date of Service: 05/04/24 Procedure(s): CT ang io abdomen Accession Number(s): [id number] cc: Paolo Samayoa RN TRAVELING-; Raji Tellez MD Report Number: [id number]: [...] in OV> 05/04/241845 DD/ 43 TD/TT: 05/04/241843 Honeycomb Blanket Maker: Complete Blood Count Auto Di ff Reviewed date:05/05/2024 05:48:11 PM Interpretation: Performing Lab:[facility], [address] [place] [phone] Notes/Report: White Blood Count 8.3 4.8-10.8 X10*3/uL [...] Gel Reviewed date:05/05/2024 06:02:20 PM Interpretation: Performing Lab:[facility], [address] [place] [phone] Notes/Report: Hold Green Gel See Note Specimen held untested for 24 hours; Call to request Chemistry testing. Reason For Referral No Information Medications Medication SIG (Take, Route, Frequency, Duration) Notes Start Date End Date Status Lasix 40 MG 1 tablet Orally Once a day for 30 day(s) Active Vitamin D (Ergocalciferol) 24585 UNIT as directed Oral twice a week [...] Problem Status W/U Status Risk Notes Problem 108111257 Encounter for screening for malignant neoplasm of colon (Z12.11) Active confirmed Problem 181129282 History of adenomatous polyp of colon (Z86.010) Active confirmed Problem 59550523 Iron deficiency (E61.1) Active confirmed Problem Diverticular disease of colon (819980845) Diverticulosis of large intestine without hemorrhage (K57.30) Active confirmed Problem 609077314923711 Preprocedural examination (Z01.818) Active confirmed Problem 585114181 Gastroesophageal reflux disease, esophagitis presence not specified [...] OF [place] [address] [place] [address] [phone] [id number] IRENE REBOLLAR Self - patient is the insured [employer] CLAIM[employer] [address] [place] [address] [phone] [id number] IRENE REBOLLAR Self - patient is the insured Medical (General) History Medical History History ICD Code Denies [place],CVA,renal disease NIDDM COPD Colonoscopy in 2006 with mul tiple tubular adenoms removed, 1 with moderate dysplasia GERD--UGI in 2016 with a hiatal hernia Neuropathy in arms and legs HTN Edema Surgical History Surgery Date(Month/Year) Right inguinal hernia repair x 2 Heel spur
== END 2024-05-11 12:33 | disposition home or self-care (01) ==
LOC: HO.HMCC 10:38
PROVIDERS: PCP Nurse Practitioner Family; Visit Provider Nurse Practitioner Family
DX: D62 Acute posthemorrhagic anemia (principal); K57.31 Diverticulosis of large intestine without perforation or abscess with bleeding

== ENCOUNTER 2024-05-11 10:38 | Outpatient (REF) | payer MEDICARE, SELFPAY ==
[2024-05-11 13:46] LABS: MANUAL DIFF FLAG NO
[2024-05-11 13:53] LABS: Basophils Absolute Auto 0.1 X10*3/uL (0.0-0.2); Basophils Percent Auto 1.1 % (0-2); Eosinophils Absolute Auto 0.2 X10*3/uL (0.0-0.4); Eosinophils Percent Auto 1.9 % (0-4); Hematocrit 43.8 % (42.0-52.0); Hemoglobin 13.7 g/dl (14.0-18.0); Imm Gran Abs Auto 0.04 X10*3/uL (0.00-0.03); Imm Gran Pct Auto 0.4 % (0.0-0.4); Lymphocytes Absolute Auto 1.3 X10*3/uL (1.2-4.9); Lymphocytes Percent Auto 14.9 % (20-40); Mean Corpuscular HGB Conc 31.3 g/dl (31.0-36.0); Mean Corpuscular Volume 89.4 fL (80.0-98.0); Mean Platelet Volume 10.2 fL (9.4-12.4); Monocytes Absolute Auto 0.7 X10*3/uL (0.1-1.2); Monocytes Percent Auto 7.3 % (2-11); Neutrophils Absolute Auto 6.7 x10*3/uL (2.0-8.3); Neutrophils Percent Auto 74.4 % (45-73); Platelet Count 344 X10*3/uL (160-400); Red Cell Distribution Width 14.4 % (11.0-16.0); White Blood Count 8.9 X10*3/uL (4.8-10.8)
[2024-05-11 14:07] LABS: Alanine Aminotransferase 29 U/L (0-40); Albumin Level 4.2 g/dL (3.5-5.0); Alkaline Phosphatase 74 U/L (39-117); Anion Gap 15 (12-20); Aspartate Amino Transferase 27 U/L (5-37); Bilirubin Total 0.5 mg/dL (0.0-1.0); Blood Urea Nitrogen 10 mg/dL (9-16); Calcium 9.4 mg/dL (8.4-10.2); Carbon Dioxide 22 mmol/L (22-29); Chloride 107 mmol/L (96-108); Estimated Glomerular Filt Rate > 60; Glucose Random 108 mg/dL (60-115); Sodium 140 mmol/L (135-145); Total Protein 7.4 g/dL (6.5-8.0)
== END 2024-05-11 10:39 | disposition home or self-care (01) ==
LOC: HO.HMGCLDS 10:38
PROVIDERS: PCP Nurse Practitioner Family; Visit Provider Nurse Practitioner Family
DX: K57.31 Diverticulosis of large intestine without perforation or abscess with bleeding (principal); D62 Acute posthemorrhagic anemia
CPT/HCPCS: 36415; 80053; 85025; 99212

== ENCOUNTER 2024-05-26 10:03 | Outpatient (REF) | payer MEDICARE, SELFPAY ==
--- NOTE | ~2024-05-26 | US_ITS ---
EXAMINATION: Noninvasive assessment of the bilateral lower extremities with ARTERIAL DUPLEX, ANKLE BRACHIAL INDICES (ABIs), and PULSE VOLUME RECORDINGS (PVRs). CLINICAL INFORMATION: Peripheral vascular disease, unspecified. TECHNIQUE: Duplex Doppler techniques with waveform analysis and measurement of velocities in the bilateral common femoral, profunda femoris, superficial femoral, popliteal and tibial arteries were performed. Additionally, ankle pulse volume recordings, ankle pressure measurements and ankle brachial indices were obtained of the lower extremity arterial system bilaterally. The study was performed only at rest. COMPARISON: None FINDINGS: DIRECT DUPLEX DOPPLER FINDINGS: RIGHT LEG: Common femoral artery: 140 cm/s, phasicity: Biphasic. Spectral broadening. Profunda femoris artery: 201 cm/s, phasicity: Biphasic. Spectral broadening. Arrhythmia. Superficial femoral artery (proximal): 122 cm/s, phasicity: Biphasic. Superficial femoral artery (mid): 110 cm/s, phasicity: Biphasic. Superficial femoral artery (distal): 109 cm/s, phasicity: Biphasic. Popliteal artery: 104 cm/s, phasicity: Biphasic. Posterior tibial artery: 95 cm/s, phasicity: Biphasic. Spectral broadening. Peroneal artery: Not identified. Anterior tibial artery: 80 cm/s, phasicity: Biphasic. Dorsalis pedis artery: 33 cm/s, phasicity:Biphasic. LEFT LEG: Common femoral artery: 162 cm/s, phasicity: Biphasic. Profunda femoris artery: 271 cm/s, phasicity: Monophasic Superficial femoral artery (proximal): 137 cm/s, phasicity: Biphasic. Superficial femoral artery (mid): 124 cm/s, phasicity: Biphasic. Superficial femoral artery (distal): 103 cm/s, phasicity: Biphasic. Popliteal artery: 140 cm/s, phasicity: Biphasic. Spectral broadening. Posterior tibial artery: 97 cm/s, phasicity: Biphasic. Spectral broadening. Peroneal artery: Not identified. Anterior tibial artery: 52 cm/s, phasicity: Biphasic. Dorsalis pedis artery: 36 cm/s, phasicity: Biphasic. Spectral broadening. BRACHIAL PRESSURES: Right: 147 Left: 146 ANKLE PRESSURES: Right: PT 119, DP 120 Left: PT 119, DP 111 ANKLE-BRACHIAL INDEX: Right: 0.82 Left: 0.81 ANKLE PVR WAVEFORMS: Right: Abnormal. Left: Abnormal US/US arterial duplex BI w/ IVY IMPRESSION: Right leg: Moderate inflow disease throughout the interrogated vessels. Left leg: Moderate inflow disease throughout the interrogated vessels. IVY Reference: - >1.4 = calcified vessels - 0.9 - 1.4 = normal - no significant arterial disease - 0.7 - 0.89 = mild peripheral arterial disease - 0.51 - 0.69 = moderate peripheral arterial disease - d 0.50 = severe peripheral arterial disease - < .30 = critical arterial disease Electronically signed by: Timothy Mayorga MD 05/26/2024 12:52 PM EDT
== END 2024-05-26 10:04 | disposition home or self-care (01) ==
LOC: HO.US 10:03
PROVIDERS: PCP Nurse Practitioner Family; Visit Provider Physician Assistant Surgical
DX: I73.9 Peripheral vascular disease, unspecified (principal)
CPT/HCPCS: 93922; 93925

== ENCOUNTER → 2024-05-26 10:04 | Outpatient (BNV) | payer MEDICARE, SELFPAY | PROVIDERS: PCP Nurse Practitioner Family; Visit Provider Radiology Diagnostic Radiology | DX: I73.9 Peripheral vascular disease, unspecified (principal) | CPT/HCPCS: 93922; 93925 ==

== ENCOUNTER → 2024-05-30 09:44 | Outpatient (REF) | payer MEDICARE, SELFPAY ==
--- NOTE | ~2024-05-30 | NM_ITS ---
Lexiscan Myocardial perfusion study Indication: Preoperative evaluation, abnormal EKG Technique: The patient was brought in for a Lexiscan perfusion study on 05/30/2024 and was injected 0.4 mg of Lexiscan intravenously. Within a minute of this injection 40 mCi of sestamibi was given intravenously. Images were obtained using the SPECT gamma camera interlaced with the gating device. Images were obtained in supine position. Resting perfusion study was performed on 06/01/2024. Patient was administered 40 mCi of sestamibi intravenously at rest. Images were then obtained in supine position. Total DLP 135 mGy-cm. Images were processed with the software and compared side to side in short axis, horizontal long axis and vertical long axis views. Findings: Raw aquisition reviewed. The stress perfusion study showed decreased tracer uptake along the inferior wall. There is improvement with CT attenuation correction suggestive of diaphragmatic attenuation artifact. The gated study shows normal LV systolic function with calculated LVEF of > 70%. LV cavity is normal in size. The gated study shows normal wall thickening and contraction of segments. Resting study shows diminished tracer uptake along the inferior wall. There is improved uptake with CT attenuation correction suggestive of diaphragmatic attenuation artifact. Gating at rest reveals normal wall motion with ejection fraction at 72%. The findings are consistent with fixed inferior perfusion defect. Probably from diaphragmatic attenuation artifact. Less likely prior inferior infarct. No clear reversible defect. NM/NM anayeli perf SPECT rest & str Impression: 1. Myocardial perfusion imaging study shows no evidence of ischemia. Fixed inferior perfusion defect that could be related to diaphragmatic attenuation artifact. Less likely prior nontransmural infarct. 2. Gated LVEF is > 70% during stress and rest. 3. Transient ischemic dilatation not present. EKG component of the test reported separately. Electronically signed by: Yonis Davalos MD 06/02/2024 03:24 PM EDT
--- NOTE | 2024-05-30 09:48 | CA_ITS ---
Acquisition Time: 2024-05-30 10:07:45 Total Exercise Time: 00:02:00 Test Indications: Pre-Op Evaluation,Dyspnea,Abnormal ECG Medications: SEE H&P Protocol: LEXISCAN Max HR: 116 BPM 78% of Pred: 148 BPM Max BP: 132/64 mmHG Max Work Load: 1.0 METS Pharmacological stress test with Lexiscan while pt marches in chair, with reports of SOB and burning chest pain with injection (baseline 1/10 chest pressure that is constant and pt states has had for the past year and a half), with isolated PVCs, with normotensive response to injection. Nondiagnostic EKG for ischemia. In recovery, pt treated with IVP Aminophylline 75 mg to reverse Lexiscan after which pt feeling back to baseline. Nuclear images pending. Test reviewed with Dr. Davalos. Referred By: Broderick Wang Electronically Signed By: Micky Swan
== END ==
LOC: HO.NUCMED 09:44
PROVIDERS: PCP Nurse Practitioner Family; Visit Provider Internal Medicine Cardiovascular Disease
DX: Z01.810 Encounter for preprocedural cardiovascular examination (principal)
CPT/HCPCS: 78452; 93017; A9500; J0280; J2785

== ENCOUNTER → 2024-05-30 09:48 | Outpatient (BNV) | payer MEDICARE, SELFPAY | PROVIDERS: PCP Nurse Practitioner Family | DX: R06.02 Shortness of breath (principal); R07.9 Chest pain, unspecified; I49.3 Ventricular premature depolarization | CPT/HCPCS: 78452; 93016; 93018 ==

== ENCOUNTER 2024-06-02 12:52 | Outpatient (AMB) | payer MEDICARE, SELFPAY ==
--- NOTE | 2024-06-02 13:05 | A.OFFVIS_ITS ---
Intake Visit Reasons: 4m follow up s/p Arterial US 05/26/24 Intake Note: Patient presents for follow up arterial US performed on 05/26. Patient states he can walk about 300 feet before his legs get tired and achey. Accompanied by: Self / Same As Patient Allergies No Known Allergies Allergy (Verified 06/02/24 13:07) HPI HPI 4m follow up s/p Arterial US 05/26/24: Details: The patient is a 74-year-old male presenting with arterial surveillance follow- up due to issues related to limb weakness. His legs become weak after walking approximately 100 yards, though he denies any pain or cramping, noting both legs are affected equally. Walking up to 200 yards is possible; however, the weakness precedes any significant heart rate elevation or shortness of breath. He has a history of Type 2 Diabetes Mellitus managed with medication, and he quit smoking a decade ago, adding context to his vascular risk factors. He underwent an abdominal CT scan in April for diverticular disease and was discovered to have atherosclerotic disease of the aorta.. Relevant past medical history includes diverticulosis, which resulted in a significant bleeding episode that resolved spontaneously. Recent cardiovascular testing involved a nuclear stress test, awaiting final results. Additionally, he was diagnosed with tachycardia via Holter monitor last November, manifesting during routine activities. He is being followed by Dr. Wang from Cardiology. Degenerative disc disease involving two discs has also been identified, which he believes contributes to his symptoms when standing. He now presents for vascular follow-up [facility] Medical History Diabetes Dyslipidemia Hyperlipidemia Inappropriate sinus tachycardia Surgical History Hx of hernia repair Hx of cardiac cath Family History Paternal Grandfather CAD (coronary artery disease) Father Pulmonary disease Maternal Grandmother Diabetes mellitus Social History Household Members: Children Housing: House Are you a primary personal care aid to a significant other at home: No Do you presently have visiting nurse or other home services: No Alcohol intake: current Alcohol intake frequency: holidays/special occasions only Patient Tobacco Use Status: Former Tobacco user Tobacco use type: Cigarette e-Cigarette/Vaping Use: Never Used Second Hand Smoke Exposure: No Advance Directives Date on File: 12/14/23 service: No Current occupational status: retired Cognitive needs: No Hearing needs: No Vision needs: No Review of Systems Const All systems reviewed & are unremarkable except as noted in HPI and below Reports no additional complaints ENT Reports Normal hearing present Card Denies chest pain, Denies chest pain at rest, Denies chest pain with activity and Denies pedal edema Resp Denies cough GI Denies abdominal pain Musc Denies abnormal gait, Denies muscle cramps and Denies radiating pain into limb Skin/Breast Denies skin ulcer and Denies wounds Neuro Reports Normal hearing present and Denies abnormal gait Psych Reports no additional complaints Physical Exam Const General: cooperative, healthy appearing and comfortable Orientation/consciousness: oriented to person, oriented to place and oriented to time HEENT Head: Yes normal to inspection Neck Neck: Yes normal visual inspection Carotids: no bruits Chest Chest palpation & inspection: normal inspection of the chest Resp Effort & Inspection: normal respiratory effort and able to speak in complete sentences Auscultation: clear to auscultation bilaterally, no crackles, no rales, no rhonchi and no wheezes Cardio Other: Bilateral palpable dorsalis pedis pulses Rate: regular rate Rhythm: regular rhythm Heart sounds: S1 normal heart sound present and S2 normal heart sound present Bruits: no carotid bruits Peripheral pulses: Peripheral pulses 2+ throughout GI Inspection: Yes normal to inspection Skin Wounds: no wounds Hair: normal Neuro General: oriented to person, oriented to place and oriented to time Cranial nerves: Yes CN's II-XII intact bilaterally and Yes Normal hearing present Cognition (Neuro): normal cognition Motor exam (neuro): 5/5 motor strength present throughout Extrem Other: venous exam: No significant superficial varicosities or spider telangiectasias, minimal edema General: No clubbing, No cyanosis and No edema Psych Appearance: grossly normal Mental Status: mental status grossly normal Speech and movement: Normal speech and movement present Results Reviewed Results Reviewed: Noninvasive arterial testing dated 05/26/2024 demonstrates IVY on the right of 0.82 and on the left of 0.81 written report and images were reviewed. CT scan of 05/04/2024 was reviewed as well Assessment & Plan Assessment & Plan (1) PVD (peripheral vascular disease): Code(s): I73.9 - Peripheral vascular disease, unspecified Category: Medical Plan: In short patient has stable claudication. I do believe most of his pain may be related to his back issues. Along with his degenerative disc disease. I did review the pathophysiology of peripheral vascular disease with the patient. In addition we did discuss routine conservative measures including a healthy diet and the importance of exercise and ambulation. We did discuss risk factor modification. The patient will continue to to follow-up with surveillance fol low-up in approximately 1 year. Thank you for allowing us to participate in this patient's care. If there are any questions or concerns please do not hesitate to contact us. Plan Patient was informed and verbally consented to the use of an ambient scribe for clinic note documentation during this visit. Orders: Orders US arterial duplex LE BI 1 Year I73.9 - Peripheral vascular disease, unspecified Patient Instructions: - Schedule follow-up for a vascular ultrasound in one year. - Continue current diabetes management and monitor blood glucose levels regularly. - Follow up with primary care provider if diverticulosis symptoms recur. - Monitor any new symptoms or changes in leg weakness; report if symptoms worsen. - Consider discussing current management with a oncology specialist if concerns persist about arrhythmia treatment. Coding Level of Care Code Est Pt Level 4 (52656) Complex EM visit Add On G2211 Diagnoses PVD (peripheral vascular disease) I73.9
== END 2024-06-02 14:04 | disposition home or self-care (01) ==
LOC: HO.HVS 12:52
PROVIDERS: PCP Nurse Practitioner Family; Visit Provider Surgery Vascular Surgery
DX: I73.9 Peripheral vascular disease, unspecified (principal)
CPT/HCPCS: 99214; G2211

== ENCOUNTER → 2024-06-02 12:52 | Outpatient (BNVA) | payer MEDICARE, SELFPAY | PROVIDERS: PCP Nurse Practitioner Family; Visit Provider Surgery Vascular Surgery | DX: I73.9 Peripheral vascular disease, unspecified (principal); Z87.891 Personal history of nicotine dependence | CPT/HCPCS: 99212 ==

== ENCOUNTER 2024-07-12 10:16 | Day surgery (SDC) | payer MEDICARE, SELFPAY ==
--- OUTSIDE RECORDS SUMMARY | 2024-06-02 13:28 | XMS_ITS | Patient Health Record ---
Author Organization [facility] Florentin marguerite [place] Address [address] [place] [address] Care Team Providers Care Junior Sales Representative Name Role Phone Geovani Sears Primary Care Provider Unav ailable Crow Morris Unavailable [phone] Allergies No Known Allergies Results Component Value Reference Range Notes HEMOGLOBIN A1C (GLYCOHEMOGLO BIN) Reviewed date:11/03/2023 02:14:47 PM Interpretation: Performing Lab: Notes/Report: HEMOGLOBIN A1C (HH) 6.3 HEMOGLOBIN A1C (GLYCOHEMOGLO BIN) Reviewed date:05/13/2024 01:37:24 PM Interpretation: Performing Lab: Notes/Report: HEMOGLOBIN A1C % (HH) 6.7 Reason For Referral No Information Medications Medication SIG (Take, Route, Frequency, Duration) Notes Start Date End Date Status Vitamin D3 Active Ciclopirox Olamine A ctive Mucinex Active Triamcinolone Acet & Anesth Active metFORMIN HCl 500 MG Orally Once a day Active Hydrocortisone Activ e Combivent Active Fluocinonide Active Clotrimazole-Betamethason e Active Betamethasone Valerate Active Baby Aspirin 81 mg once a day Active Amoxicillin-Pot Clavulanate Active dilTIAZem HCl ER Coated Beads 240 MG Oral for 90 Active Betamethasone Dipropionate Aug 0.05 % External for 30 A ctive Tacrolimus 0.1 % External for 90 Active Vitamin B Complex - as directed Orally Active Eucrisa 2 % External for 30 Ac tive Rosuvastatin Calcium 40 MG Oral for 90 Active Tamsulosin HCl 0.4 MG Oral for 90 Active Vitamin D2 Not-Takin g DULoxetine HCl 20 MG Oral for 90 Active Vitamin B12 Not-Taki ng Jardiance 10 MG Oral for 90 Ac tive Stiolto Respimat Not -Taking Trelegy Ellipta 100-62.5-25 MCG/ACT Inhalation for 90 Act alejandro Meloxicam 15 MG Orally Once a day Not-Taking Finasteride 5 MG Oral for 90 A ctive Lipoic Acid Not-Taki ng Corlanor 5 MG Oral for 90 Acti ve Gabapentin 300 MG Orally Three times a day Not-Taking Combivent Respimat 20-100 MCG/ACT Inhalation for 90 Active Furosemide 40 mg once a day No t-Taking Verapamil HCl ER 240 MG Oral for 90 Active Extra Depth Orthopedic Shoes (1 Pair) with Customized Heat Molded Multidensity Innersoles (3 Pair) as directed Dx: NIDDM/Polyneuropathy (E11.42), Hammertoe Foot Deformity (M20.41,M20.42), Preulcerative Skin Lesion(s) (L85.1 11/03/2023 Active Ketoconazole Active Omeprazole 40 MG Orally twice a day Active Immunizations Vaccine Route Administration Date Status Comme nts Influenza Unknown 01/11/2018 Administered Influenza Unknown 10/31/2022 Administered Social History Tobacco Use: Social History Observation Description Date Details (start date - stop date) Never Smoker NA - NA Tobacco use other than smoking: Question Answer Notes Are you an other tobacco user? No Tobacco Control (Standard) Question Answer Notes Tobacco use: Nonsmoker Additional Findings: Tobacco non-user Current no nsmoker AUDIT-C (Standard) Question Answer Notes Did you have a drink containing alcohol in the p ast year? No Points 0 Interpretation Negative Problems Problem Type SNOMED Code ICD Code Onset Dates Problem Status W/U Status Risk Notes Problem Acquired hammer toe of right foot (2690154988709082 ) Other hammer toe(s) (acquired), right foot (M20.41) Active confirmed Response to treatment, Improvemen t Problem Acquired hammer toe of left foot (0728642839572734 ) Other hammer toe(s) (acquired), left foot (M20.42) Active confirmed Response to treatment, Improvemen t Problem Polyneuropathy due to type 2 diabetes mellitus (034412619) Type 2 diabetes mellitus with diabetic polyneuropathy (E11.42) Active confirmed Vital Signs Blood pressure diastolic 70 mm Hg 05/13/2024 Height 6 ft in 05/13/2024 Blood pressure systolic 130 mm Hg 05/13/2024 Weight 245 lbs 05/13/2024 BMI 33.22 kg/m2 05/13/2024 Procedures Procedure Date Ordered Date Performed Result Body Sit e 94638-ZVPJQRN NAIL, 6 OR MORE 11/03/2023 N/A 16881-Kfupwfmq Plate 11/03/2023 N/A 80936-UJYC SKIN LESIONS, 2 TO 4 11/03/2023 N/A 24379-RHQYNJN NAIL, 6 OR MORE 02/02/2024 N/A 96357-PPLP SKIN LESIONS, 2 TO 4 02/02/2024 N/A 79321-JRNCSVZ NAIL, 6 OR MORE 05/13/2024 N/A 81729-LUNF SKIN LESIONS, 2 TO 4 05/13/2024 N/A 38856- Removal of Foreign Body, Subcut 05/13/2024 N/A Encounters Encounter Location Date Provider Diagnosis [address] [address] 11/03/2023 Crow Morris Type 2 diabetes mellitus with diabetic polyneuropathy E11.42 ; Tinea unguium B35.1 ; Ingrown nail L60.0 ; Other hammer toe(s) (acquired), right foot M20.41 and Other hammer toe(s) (acquired), left foot M20.[address] [address] 02/02/2024 Crow Morris Type 2 diabetes mellitus with diabetic polyneuropathy E11.42 and Tinea unguium B35.[address] [address] 05/13/2024 Crowerin Morris Type 2 diabetes mellitus with diabetic polyneuropathy E11.42 ; Tinea unguium B35.1 ; Other hammer toe(s) (acquired), right foot M20.41 ; Other hammer toe(s) (acquired), left foot M20.42 and Puncture wound with foreign body, right foot, initial encounter S91.341A [address] [address] 07/23/2023 Crow Morris [facility] [place] [address] [place] [address] 05/03/2024 Crow Morris Assessments Encounter Date Diagnosis (ICD Code) Assessment Notes Treatment Notes Treatment Clinical Notes Section Notes 11/03/2023 Type 2 diabetes mellitus with diabetic polyneuropathy (ICD-10 - E11.42) 11/03/2023 Tinea unguium (ICD-10 - B35.1) 02/02/2024 Type 2 diabetes mellitus with diabetic polyneuropathy (ICD-10 - E11.42) 02/02/2024 Tinea unguium (ICD-10 - B35.1) 05/13/2024 Type 2 diabetes mellitus with diabetic polyneuropathy (ICD-10 - E11.42) 05/13/2024 Tinea unguium (ICD-10 - B35.1) 05/13/2024 Other hammer toe(s) (acquired), right foot (ICD-10 - M20.41) Response to treatment,Impro vement 11/03/2023 Ingrown nail (ICD-10 - L60.0) 11/03/2023 Other hammer toe(s) (acquired), right foot (ICD-10 - M20.41) Patient Educated with: DIABETIC FOOT CARE INSTRUCTIONS. pdf (DIABETIC FOOT CARE INSTRUCTIONS. pdf) 05/13/2024 Other hammer toe(s) (acquired), left foot (ICD-10 - M20.42) Response to treatment,Impro vement 05/13/2024 Puncture wound with foreign body, right foot, initial encounter (ICD-10 - S91.341A) 11/03/2023 Other hammer toe(s) (acquired), left foot (ICD-10 - M20.42) 02/02/2024 Other 05/13/2024 Other Plan Of Treatment Pending Test Test Name Order Date 51549-GOQYHNM NAIL, 6 OR MORE 11/03/2023 37515-GLZCPBP NAIL, 6 OR MORE 02/02/2024 92548-QYPUEIR NAIL, 6 OR MORE 05/13/2024 63676-Ltwsyply Plate 11/03/2023 23686- Debride <25 sq cm 07/23/2018 86478 I&D ABSCESS- SIMPLE,SINGLE 019 13333-FZDH SKIN LESIONS, 2 TO 4 11/03/19 24 94773-KOJH SKIN LESIONS, 2 TO 4 05/14/19 25 96188-ZTGC SKIN LESIONS, 2 TO 4 02/02/20 99906- Removal of Foreign Body, Subcut 0 05/13/2024 Next Appt Details Provider Name:Crow Morris , 08/16/2024 08:45:00 AM, [address] [place], [address], Insurance Providers Payer Name Payer Address Payer Phone Subscriber Number Group Number Insured Name Patient Relationship to Insured Coverage Start Date Coverage End Date Medicare [employer] [address] [place] [address] [id number] Cody Rebollar Self - patient is the insured 7 [employer] Blue [employer] [address] [place] [address] [id number] Cody Rebollar Self - patient is the insured Medical (General) History Medical History History ICD Code Diabetes mellitus Reflux ( GERD) Arthritis Back,Hip,and Knee pain Broken bones Hiatal hernia Lung disease Neuropathy Mumps Measles Chicken pox Hyperglycemia Vericose Veins CAD (Cholesterol) Diverticulosis Heart disease Hypertension nerve disorder Poor circulation Psoriasis stints elevated heart rate Surgical History Surgery Date(Month/Year) hernia 1992 heel spur 1998 Hernia Repair 2000 Hospitalization History Reason Date(Month/Year) [facility]- Throwing up blood 04/2023
--- OUTSIDE RECORDS SUMMARY | 2024-06-02 13:28 | XMS_ITS ---
Author Organization [facility] Address [address] [place] [address] Care Team Providers Care Printing Machine Mechanic Name Role Phone Geovani Sears Primary Care Provider Unav ailable Crow Morris Unavailable [phone] REASON FOR VISIT SD cx 3/4 Encounters Encounter Location Date Provider Diagnosis [address] [address] 05/03/2024 Crow Morris Plan Of Treatment Next Appt Details Provider Name:Crow Morris , 08/16/2024 08:45:00 AM, [address] [place] [address], [phone], Progress Notes * KETURAHCody MARTINEZ WDOB: (74 yo M)Acc No.[id number]:05/03/2024 Patient:?Cody OSEGUERA :1950???Age:74 Y???Sex:Male Address:[address] [place] [address] [place] [address] * true * Date:? Generated for Printi ng/Facelsog/eTransmitting on:?06/02/2024 01:28 PM EDT
--- OUTSIDE RECORDS SUMMARY | 2024-06-02 13:28 | XMS_ITS ---
Author Organization [facility] Address [address] [place] [address] Care Team Providers Care Regulatory Law Specialist Name Role Phone PAOLO TERRELL Primary Care Provider Raji Salas Unavailable [phone] Ezekiel Luu Jr Unavailable [phone] REASON FOR VISIT GI bleed Encounters Encounter Location Date Provider Diagnosis [facility] Inpatient [address] [place] [id number] 04/01/2023 Ezekiel Luu Jr Plan Of Treatment No Information Progress Notes * ANA ROSA, IRENE WDOB: [birth year] (74 yo M)Acc No.[id number]:04/01/2023 COLON WITH MAC Patient:?IRENE OSEGUERA Provider:?Ezekiel Luu MD :1950???Age:73 Y???Sex:Male Con e:04/01/2023 Address:[address] [place], [place] [phone] Pcp:PAOLO TERRELL Subjective: * Chief Complaints: * ???1. GI bleed. * Medical History:? Objective: * Vitals:? Assessment: Plan: * Treatment: * * The named appointment provid er may or may not be the originator of this progress note, and it is not deemed complete until electronically signed by the appointment provider. Sign off status: Pending * Provider:?Ezekiel Luu MD Date:?0 04/01/2023 Generated for Raqueli ng/Facelsog/eTransmitting on:?06/02/2024 01:28 PM EDT
--- OUTSIDE RECORDS SUMMARY | 2024-06-02 13:28 | XMS_ITS ---
Author Organization [facility] Address [address] [place] [address] Care Team Providers Care Byproducts Operator Name Role Phone Geovani Sears Primary Care Provider Unav ailable Crow Morris Unavailable [phone] Encounters Encounter Location Date Provider Diagnosis [address] [address] 05/03/2024 Crow Morris Plan Of Treatment Next Appt Details Provider Name:Crow Morris , 08/16/2024 08:45:00 AM, [address] [place] [address], [phone], Progress Notes * Cody REBOLLAR WDOB: (74 yo M)Acc No.[id number]:05/03/2024 Progress Note Patient:?Cody REBOLLAR Provider:?Crow Morris DPM :1950???Age:74 Y???Sex:Male Con e:05/03/2024 Address:[address] [place] [address] [phone] Pcp:LOU Sun Subjective: * Chief Complaints: * ??? * Medical History:? Objective: * Vitals:? Assessment: Plan: * Treatment: * Images: * The named appointment provid er may or may not be the originator of this progress note, and it is not deemed complete until electronically signed by the appointment provider. Sign off status: Pending * Provider:Cheryl Morris DPM Date:?2024 Generated for Kirill kapaln/Lily/Yousif on:?06/02/2024 01:28 PM EDT
--- OUTSIDE RECORDS SUMMARY | 2024-06-02 13:29 | XMS_ITS ---
Author Organization [facility] Address [address] [place] [address] Care Team Providers Care Accounts Payable Professional Name Role Phone PAOLO TERRELL Primary Care Provider Raji Salas [phone] REASON FOR VISIT pathology/ 3yr colon recall Encounters Encounter Location Date Provider Diagnosis [facility] [address] [place] [phone] 04/09/2023 Raji Tellez Plan Of Treatment No Information Progress Notes * IRENE OSEGUERA WDOB: [birth year] (73 yo M)Acc No.[id number]:04/09/2023 Patient:?IRENE OSEGUERA :1950???Age:73 Y???Sex:Male Address:[address] [place] [address] * true * Date:? Generated for Raqueli eusebio/Lily/eTransmitting on:?06/02/2024 01:28 PM EDT
--- OUTSIDE RECORDS SUMMARY | 2024-06-02 13:29 | XMS_ITS ---
Author Organization [facility] Florentin Alas Address [address] [place] [address] Care Team Providers Care Coal Wheeler Name Role Phone Geovani Sears Primary Care Provider Unav ailable Crow Morris Unavailable [phone] Allergies No Known Allergies REASON FOR VISIT At Risk Footcare, Toe Irritation, Skin problem(s) - I walk around barefoot all the time Medications Medication SIG (Take, Route, Frequency, Duration) Notes Start Date End Date Status Trelegy Ellipta 100-62.5-25 MCG/ACT Inhalation for 90 Act alejandro Finasteride 5 MG Oral for 90 A ctive Corlanor 5 MG Oral for 90 Acti ve Combivent Respimat 20-100 MCG/ACT Inhalation for 90 Active Verapamil HCl ER 240 MG Oral for 90 Active Vitamin D3 Active Ciclopirox Olamine A ctive Triamcinolone Acet & Anesth Active Hydrocortisone Activ e Vitamin B Complex - as directed Orally Active Vitamin D2 Not-Takin g Vitamin B12 Not-Taki ng Fluocinonide Active Stiolto Respimat Not -Taking Meloxicam 15 MG Orally Once a day Not-Taking Lipoic Acid Not-Taki ng Gabapentin 300 MG Orally Three times a day Not-Taking Furosemide 40 mg once a day No t-Taking Extra Depth Orthopedic Shoes (1 Pair) with Customized Heat Molded Multidensity Innersoles (3 Pair) as directed Dx: NIDDM/Polyneuropathy (E11.42), Hammertoe Foot Deformity (M20.41,M20.42), Preulcerative Skin Lesion(s) (L85.1 11/03/2023 Active Ketoconazole Active Mucinex Active metFORMIN HCl 500 MG Orally Once a day Active Combivent Active Clotrimazole-Betamethason e Active Omeprazole 40 MG Orally twice a day Active Betamethasone Valerate Active Baby Aspirin 81 mg once a day Active Amoxicillin-Pot Clavulanate Active dilTIAZem HCl ER Coated Beads 240 MG Oral for 90 Active Betamethasone Dipropionate Aug 0.05 % External for 30 A ctive Eucrisa 2 % External for 30 Ac tive Rosuvastatin Calcium 40 MG Oral for 90 Active Tamsulosin HCl 0.4 MG Oral for 90 Active DULoxetine HCl 20 MG Oral for 90 Active Tacrolimus 0.1 % External for 90 Active Jardiance 10 MG Oral for 90 Ac tive Social History Tobacco Use: Social History Observation [...] ast year? No Points 0 Interpretation Negative Vital Signs Height 6 ft in 05/13/2024 Weight 245 lbs 05/13/2024 BMI 33.22 kg/m2 05/13/2024 Blood pressure systolic 130 mm Hg 05/14/19 25 Blood pressure diastolic 70 mm Hg 025 Procedures Procedure Date Ordered Date Performed Result Body Sit e 27248-FTCKYVY NAIL, 6 OR MORE 05/13/2024 N/A 44512-DKJJ SKIN LESIONS, 2 TO 4 05/13/2024 N/A 43361- Removal of Foreign Body, Subcut 05/13/2024 N/A Encounters Encounter Location Date Provider Diagnosis [facility] [place] [address] [place] [address] 05/13/2024 Crow Morris Type 2 diabetes mellitus with diabetic polyneuropathy E11.42 ; Tinea unguium B35.1 ; Other hammer toe(s) (acquired), right foot M20.41 ; Other hammer toe(s) (acquired), left foot M20.42 and Puncture wound with foreign body, right foot, initial encounter S91.341A Assessments Encounter Date Diagnosis (ICD Code) Assessment Notes Treatment Notes Treatment Clinical Notes Section Notes 05/13/2024 Type 2 diabetes mellitus with diabetic polyneuropathy (ICD-10 - E11.42) 05/13/2024 Tinea unguium (ICD-10 - B35.1) 05/13/2024 Other hammer toe(s) (acquired), right foot (ICD-10 - M20.41) Response to treatment,Impro vement 05/13/2024 Other hammer toe(s) (acquired), left foot (ICD-10 - M20.42) Response to treatment,Impro vement 05/13/2024 Puncture wound with foreign body, right foot, initial encounter (ICD-10 - S91.341A) 05/13/2024 Other Plan Of Treatment Pending Test Test Name Order Date 18338-TVQWVWQ NAIL, 6 OR MORE 05/13/2024 42182-CIZJ SKIN LESIONS, 2 TO 4 05/14/19 28554- Removal of Foreign Body, Subcut 0 05/13/2024 Next Appt Details Follow Up: prn, Reason: Provider Name:Crow Morris , 08/16/2024 08:45:00 AM, [address] [place] [address], [phone], Procedure Notes * Category Sub-Category Detail Notes Foreign Body Removal Anesthesia was not uti lized - NEUROPATHY: patient has medically documented neuropathic condition affecting sensation Procedure The wound was explor ed and the foreign body ( wood, ) was removed along with devitalized tissue, thru skin and subcutaneous tissue, using sterile 15 blade sharp dissection. A sterile antibiotic ointment dressing was applied and wound care instructions were discussed and dispensed, Patient tolerated procedure well (80851) - STRONGLY ADVISED PT TO REFRAIN FROM BAREFOOT WALKING Location of foreign body As per exam Skin area prepped with al cohol or betadine , procedure performed under aseptic conditions Debride Nail 6-10 Nail debridement Due to the cl inical pathology outlined in the exam findings, performance of this nail treatment is medically necessary as its management by an unskilled/untrained nonprofessional would put this patients foot and overall health at risk. Therefore, debridement to affected nail(s), as described in exam ( TA, T1, T2, T3, T4, T5, T6, T7, T8, T9 ), was performed exclusively by the physician of record to reduce/remove overall nail length, girth, thickness, subungual debris, and necrotic tissue, by manual and/or electrical means through the use of a nail nipper and/or dremel-type magnetic grinder operator, to a more viable healthy [...] to maintain effectiveness in symptomatic relief - 66575 Keratoma Treatment Parring or Cutting o f Benign Hyperkeratotic Lesion(s) (-56) 2-4 Lesions - Due to the at risk nature of the patients medical condition as documented in the exam findings, performance of this keratoderma treatment is medically necessary as its management by an unskilled/untrained nonprofessional would put this patients foot and overall health at risk. Therefore, the benign hyperkeratotic lesions, ( 4 ) in total, locations as stated and described in the exam ( SUB MTH (s), 5, B/L, Plantar, Heel(s) , B/L ), were pared, and/or cut utilizing a sterile 15 blade, tissue nippers, and/or power dremel instrumentation by the physician of record - 84823 Progress Notes * Cody OSEGUERA WDOB: [birth year] (74 yo M)Acc No.[id number]:05/13/2024 Progress Note Patient:?Cody OSEGUERA W Provider:?Crow Morris DPM :1950???Age:74 Y???Sex:Male Con e:05/13/2024 Address:[address] [place] [id number] Pcp:LOU Sun Subjective: * Chief Complaints: * ???At Risk FootcareToe Irrit ationSkin problem(s) - I walk around barefoot all the time * HPI: ???At Risk footcare:?Pt States Last PCP Visit:?Date?05/11/2024 ???Toe pain:?Treatments:?Rx shoes .? * ROS:?General/Constitutional:?Nausea?denies.?Vomiting?denies.?Hunger Thirst?denies.?Loss appetite?denies.?Chills?denies.?Fatigue?admits.?Fever?denies.?Night Sweats?denies.?Unexplained weight loss?denies.?Unexplained weight gain?denies.?HEENTM:?Dentures?denies.?Dizziness?denies.?Glasses/contacts?denies.?Retinopathy?den ies.?Blurred/double vision?denies.?TMJ?denies.?Discharge/drainage?denies.?Implants?denies.?Sore throat?denies.?Dental implants?denies.?Hard of hearing ?denies.?Difficulty chewing/swallowing/speaking?denies.?Nose bleeds?denies.?Sore mouth?denies.?Respiratory:?On O xygen?denies.?Pneumonia/pleurisy?admits.?Bronchitis?admits.?Emphysema?denies.?Co ughing?admits.?Cough blood?denies.?Shortness of breath?admits.?Wheezing?denies.?Cardiovascular:?Pacemaker?denies.?MVP?denies.?WPW?denies.?CHF?denies.?Heart attack?denies.?Septal defect?denies.?Rapid beat?admits.?Chest pain ?denies.?Atrial Fib.?denies.?Murmur/Palpitations?denies.?Gastrointestinal:?Hemorrhoids?denies.?Stomach/Abdominal pain?denies.?Dark blood stool?denies.?Irritable bowel ?denies.?Constipation?denies.?Diarrhea?denies.?Hematology:?Swelling?denies.?Clots?denies.?Varicose Veins?admits.?Bruising?denies.?Bleeding problem?denies.?Genitourinary:?Blood urine?denies.?Frequent/Painfu/urination/bladder control?denies.?Kidney stones?denies.?Infection (UTI)?denies.?Nephropathy?denies.?sex trans dis (STD)?denies.?Prostate?admits.?Musculoskeletal:?Hammertoes?admits.?Bunions?denies.?Back Pain?denies.?Muscle Cramps/ Resting?denies.?Muscle cramps / walking?denies.?Generalized aches and pains?admits.?Weakness?admits.?Integ.:?Mark?denies.?Scars?denies.?Corns/calluses?admits.?Ingrown nails?admits.?Painful nails?denies.?Open Sores?denies.?Rashes?denies.?Neurologic:?Difficulty sleeping?admits.?Brain disorder?denies.?Numbness?admits.?Balance t rouble?denies.?Confusion?denies.?Fainting/blackouts?denies.?Tingling?admits.?Checo mors?denies.? * Medical History:? * Surgical History:?hernia 199 2heel spur 1998Hernia Repair 2000 * Hospitalization/Major Diagno stic Procedure:?[facility]- Throwing up blood 04/2023 * Family History:?Mother: christin dutta, diagnosed with Other malignant neoplasm of unspecified site, Diabetic - NIDDM.?Father: .?Paternal Grand Father: diagnosed with Unspecified cerebral artery occlusion with cerebral infarction.?Maternal Grand Mother: diagnosed with Diabetic - NIDDM.?Siblings: diagnosed with Unspecified essential hypertension.? * Social History:?Tobacco Use:?Tobacco use other than smoking?Are you an other tobacco user??No ?Tobacco Control (Standard)?Tobacco use:?Nonsmoker ?Additional Findings: Tobacco non-user?Current nonsmoker ???Drugs/Alcohol:?Drugs?Have you used drugs other than those for medical reasons in the past 12 months??No ???Drug/Alcohol:?AUDIT-C (Standard)?Did you have a drink containing alcohol in the past year??No ?Points?0 ?Interpretation?Negative * Medications:?TakingFluocinon kerri Hydrocortisone Triamcinolone Acet & [...] Vitals:?Ht:6 ft, Wt:245, BMI :33.22, Shoe size:10, BP:130/70mm Hg, BS:not taken, Ht-cm: 182.88 cm, Wt-k.13 kg. * ???Past Orders: ???Lab:HEMOGLOBIN A1C (GLYCO HEMOGLOBIN) (Order Date - 05/11/2024) (Collection Date & Time - 05/13/2024 01:36 PM) ? Value Reference Range ?HEMOGLOBIN A1C % (HH) 6.7 * Examination: ???Ophthalmology Referral: ?DIABETES EYE EXAM?Procedure Performed:?Yes ?Date of Exam Performed?02/01/2024 ?Diabetic Retinopathy Screening:?Yes ?Retinal Screening Performed:?Yes ?Findings of Diabetic Eye Exam:?no retinopathy?Neurological: ?SENSORY:? Neurological exam demonstrates, reduced light touch sensation, reduced sharp/dull pin prick discrimination , B/L, 5.07 monofilament test performed at plantar aspects of 5 varied sites per foot shows sensation, reduced , B/L.?Nails: ?NAILS are:?Elongated, overgrown, dystrophic, lytic, greater than 3mm thick, discolored and friable with crumbly malodorous subungual debris , TA, T1, T2, T3, T4, T5, T6, T7, T8, T9.?Dermatologic: ?SKIN FINDINGS:?Skin exam reveals Keratotic lesion(s) located at , SUB MTH (s), 5, B/L, Plantar, Heel(s) , B/L , Skin shows sign(s) of, Puncture Wound extending into the Sub Q WITH evidence of FOREIGN BODY, but without any sign(s) of infection, Plantar Forefoot, Right.?Orthopedic: ?DIGITAL DEFORMITIES:?Digital contracture, PIPJ, 2-5 B/L, incompl-reducible to push-up test, no over, nor underlapping.?FOOTWEAR:?good condition, exhibit proper fit and accommodation for pedal deformities. OT were inspected and noted to be worn, but in good condition giving proper support at the present time.?General Examination: ?GENERAL APPEARANCE:?Reveals a pleasant, alert, well nourished, well- developed, well hydrated individual, who demonstrates proper attention to hygiene/body habitus, and is in no acute distress, Pt serves as own historian for office visit today.?ORIENTED:?person, place, and time.?FOOT EXAM:?Lower Extremity Neurological Exam performed:?Yes ?Visual exam of foot performed:?Yes ?Date?05/13/2024 ?Footwear Evaluation?Footwear Evaluation performed:?Yes??? Assessment: * Assessment: 1.?Type 2 diabetes mellitus with diabetic polyneuropathy - E11.42 (Primary)???2.?Tinea unguium - B35.1???3.?Other hammer toe(s) (acquired), right foot - M20.41???Specify :Chronic problem, Stable (1=3,2=4)???Notes :Response to treatment,Improvement???4.?Other hammer toe(s) (acquired), left foot - M20.42???Specify :Chronic problem, Stable (1=3,2=4)???Notes :Response to treatment,Improvement???5.?Puncture wound with foreign body, right foot, initial encounter - S91.341A??? Plan: * Treatment: 2.?Puncture wound with forei gn body, right foot, initial encounter?Procedure: 75815- Removal of Foreign Body, Subcut * Procedures:?Debride Nail 6-10:?Nail debridement?Due to the clinical pathology outlined in the exam findings, performance of this nail treatment is medically necessary as its management by an unskilled/untrained nonprofessional would put this patients foot and overall health at risk. Therefore, debridement to affected nail(s), as described in exam (?TA, T1, T2, T3, T4, T5, T6, T7, T8, T9?), was performed exclusively by the physician of record to reduce/remove overall nail length, girth, thickness, subungual debris, and necrotic tissue, by manual and/or electrical means through the use of a nail nipper and/or dremel-type magnetic grinder operator, to a more viable healthy nail plate or bed tissue 6- 10 nails in total. Silver nitrate was used for any petechial bleeding as necessary. Definitive antifungal treatment options, both pharmaceutical and surgical, have been reviewed and discussed with the patient. The patient solely prefers the use of intermittent/as needed professional debridement services for their nail condition and understands the need for additional periodic treatments to maintain effectiveness in symptomatic relief - 95566.?Foreign Body Removal:?Anesthesia?was not utilized - NEUROPATHY: patient has medically documented neuropathic condition affecting sensation.?Skin?area prepped with alcohol or betadine , procedure performed under aseptic conditions.?Location of foreign body?As per exam.?Procedure?The wound was explored and the foreign body ( wood, ) was removed along with devitalized tissue, thru skin and subcutaneous tissue, using sterile 15 blade sharp dissection. A sterile antibiotic ointment dressing was applied and wound care instructions were discussed and dispensed, Patient tolerated procedure well (79350) -?STRONGLY ADVISED PT TO REFRAIN FROM BAREFOOT WALKING.?Keratoma Treatment:?Parring or Cutting of Benign Hyperkeratotic Lesion(s)?(-56) 2-4 Lesions - Due to the at risk nature of the patients medical condition as documented in the exam findings, performance of this keratoderma treatment is medically necessary as its management by an unskilled/untrained nonprofessional would put this patients foot and overall health at risk. Therefore, the benign hyperkeratotic lesions, ( 4 ) in total, locations as stated and described in the exam (?SUB MTH (s),?5,?B/L,?Plantar,?Heel(s)?,?B/L?), were pared, and/or cut utilizing a sterile 15 blade, tissue nippers, and/or power dremel instrumentation by the physician of record - 20053.? * Procedure Codes:?69523 DEBRI DE NAIL, 6 OR MORE, Modifiers: XS 99515 REMOVAL OF FOOT FOREIGN BODY, Modifiers: XS 63837 TRIM SKIN LESIONS, 2 TO 4, Modifiers: XS * Preventive Medicine:? ??Counseling:?Discussion:?-13: Office or other outpatient visit for the evaluation and management of an established patient, which required a medically appropriate history and/or examination and LOW level of DECISION MAKING for: 1 STABLE ACUTE UNCOMPLICATED PROBLEM, 2 OR MORE MINOR PROBLEMS, OR 1 STABLE CHRONIC PROBLEM, THAT POSE(S) A LOW RISK FOR MORBIDITY/MORTALITY. The visit on the day of the [...] have encouraged the patient to call the office.?Shoe Gear Counseling:?A thorough inspection of the patients Rxed shoegear and inserts was performed and findings communicated. We reviewed the many important medical advantages for adhering to regularly wearing these shoe and insert accomidative devices daily as well as reviewed the fact that a failure in accepting these recommedations may be deleterious, unable to prevent, and disadvantagely result in, many pedal complications such as skin irritation, skin ulceration, infection, and even loss of toe/foot/leg/or even their life. Time was also spent reviewing the proper footcare techniques including daily skin moisturization, daily foot inspection for any interruption in skin integrity, open lesions, or sign of infection such as redness/malodor/drainage/swelling as well as daily shoe inspection for the presence of internal foreign bodies and shoe as well as insert wear. Patient questions re: shoes, inserts, and self foot inspections were answered to their satisfaction as the patient verbally confirmed a full understanding of the above information.? ??Screening/Special Tests:?Fall Risk?Screening:?No falls in the past year ?FALLS: Screening for Future Fall Risk?Have you had any falls with injury in the past year??No * Follow Up:?prn * Images: * Sign off status: Completed true * Provider:?Crow Morris DPM Date:?2024 Generated for Kirill kaplan/Lily/eTransmitting on:?06/02/2024 01:28 PM EDT History and Physical Notes * HPI (History of Present Illness) Category Sub-Category Detail Notes Category Not es Toe pain Treatments: Rx shoes At Risk footcare Pt States Last PCP Visit: Date: Examination Category Sub-Category Detail Notes Category Not [...] (s), 5, B/L, Plantar, Heel(s) , B/L , Skin shows sign(s) of, Puncture Wound extending into the Sub Q WITH evidence of FOREIGN BODY, but without any sign(s) of infection, Plantar Forefoot, Right Orthopedic FOOTWEAR EVALUATION: good condit ion, exhibit proper fit and accommodation for pedal deformities. OT were inspected and noted to be worn, but in good condition giving proper support at the present time DIGITAL DEFORMITIES: Digital contracture , PIPJ, 2-5 B/L, incompl-reducible to push-up test, no over, nor underlapping General Examination GENERAL APPEARANCE: Reveals a pleasant, alert, well nourished, well-developed, well hydrated individual, who demonstrates proper attention to hygiene/body habitus, and is in no acute distress, Pt serves as own historian for office visit today FOOT EXAM: Lower Extremity Neurological Exa m performed:: Yes Visual exam of foot performed:: Yes Date: 05/13/2024 ORIENTED: person, place, and t brandon Footwear Evaluation Footwear Evaluation performe d:: Yes Ophthalmology Referral DIABETES EYE EXAM Procedure Perform ed:: Yes ?Date of Exam Performed: 02/01/2024 Diabetic Retinopathy Screening:: Yes Retinal Screening Performed:: Yes Findings of Diabetic Eye Exam:: no retin opathy Nails NAILS are: Elongated, overg rown, dystrophic, lytic, greater than 3mm thick, discolored and friable with crumbly malodorous subungual debris , TA, T1, T2, T3, T4, T5, T6, T7, T8, T9
--- OUTSIDE RECORDS SUMMARY | 2024-06-02 13:29 | XMS_ITS | Patient Health Record ---
Author Organization [facility] Address [address] [place] [address] Care Team Providers Care Cosmetics Machine Operator Name Role Phone PAOLO SAMAYOA Primary Care Provider Raji Salas Unavailable [phone] Allergies Allergen (clinical drug ingredient) Drug/Non Drug Allergy documented on EMR Reaction Allergy Type Onset Date Status Aloe Aftersun Unknown Drug Allergy Act alejandro Results Component Value Reference Range Notes Complete Blood Count Auto Di ff Reviewed date:05/05/2024 10:11:31 AM Interpretation: Performing Lab:[facility], [address] [place] [phone] Notes/Report: White Blood Count 10.5 4.8-10.8 X10*3/uL [...] ff Reviewed date:05/05/2024 10:10:45 AM Interpretation: Performing Lab:[facility], [address] [place] [phone] Notes/Report: White Blood Count 8.9 4.8-10.8 X10*3/uL [...] Pathology Reviewed date:05/09/2024 06:04:55 PM Interpretation: Performing Lab:[facility], [address] [place] [phone] Notes/Report: ----- Name: KeturahIrene Age/Sex: 74/M : 1950 Unit#: [id number] Attend Dr: Cristiano Serrano MD Re05/03/24 Status : DIS IN Location: [facility] 372-1 Disch: 05/06/24 ----- SPEC : [id number] RECD : 05/05/24 STATUS: BE GOMEZ NUM: [id number] IMANI: 05/04/24-[address] [facility] [address]: Raji Tellez MD ENTERED: 05/05/24-08 54 SP TYPE: Surgical OTHR DR: Cristiano Serrano MD, John J [facility]- ORDERED: Gross Micro L4, IHC, Special st. [...] stains Copies To: Cristiano Serrano MD [address] [place], [place] [id number] Paolo Samayoa [address] [address] CONTINUED ON NEXT PAGE ----- Name: Irene Rebollar Hernan Age/Sex: 74/M : 1950 Unit#: [id number] Attend Dr: Cristiano Serrano MD Re05/03/24 Status : DIS IN Location: [facility] 372-1 Disch: 05/06/24 ----- SPEC : [id number] RECD : 05/05/24 STATUS: BE GOMEZ NUM: [id number] IMANI: 05/04/[address] [facility] [address]: Raji Tellez MD ENTERED: 05/05/24- 54 SP TYPE: Surgical OTHR DR: Cristiano Serrano MD, John J [facility]- ORDERED: Gross Micro L4, IHC, Special st. 2, H. pylori, AB/PAS Copies To: (Continued) Raji Tellez MD [address] [place] [id number] ----- Signed (signature on file) Milton Moss MD 05/09/24 4471 ----- END OF REPORT CT angio abdomen Reviewed date:05/05/2024 10:11:09 AM Interpretation: Performing Lab: Notes/Report: [address] [address] [address] Scan Report Signed with Addenda Patient: Irene Rebollar MR#: [id number] 63 : 1950 Acct:[id number] Age/Sex: 74 / M ADM Date: 05/03/24 Loc: .S3 372-[address]: Cristiano Serrano MD Ordering Physician: Raji Tellez MD Date of Service: 05/04/24 Procedure(s): CT angio abdomen Accession Number(s): [id number] cc: Paolo Samayoa [facility]-; Raji Tellez MD Report Number: [id number]: Total DLP = 2273.00 mGy-cm ADDENDUM This [...] in OV> 05/04/241845 DD/ 43 TD/TT: 05/04/241843 Dry Cell Tester: [place] [address] CT Scan Report Signed with Addenda Patient: Gennaro Rebollar MR#: [id number] 63 : 1950 Acct:[id number] Age/Sex: 74 / M ADM Date: 05/03/24 Loc: .S3 372-[address]: Cristiano Serrano MD Ordering Physician: Raji Tellez MD Date of Service: 05/04/24 Procedure(s): CT ang io abdomen Accession Number(s): [id number] cc: Paolo Samayoa BOOM MASTER-; Raji Tellez MD Report Number: [id number]: [...] in OV> 05/04/241845 DD/ 43 TD/TT: 05/04/241843 Dry Cell Tester: Complete Blood Count Auto Di ff Reviewed date:05/05/2024 05:48:11 PM Interpretation: Performing Lab:[facility], [address] [place] [phone] Notes/Report: White Blood Count 8.3 4.8-10.8 X10*3/uL [...] Gel Reviewed date:05/05/2024 06:02:20 PM Interpretation: Performing Lab:[facility], [address] [place] [phone] Notes/Report: Hold Green Gel See Note Specimen held untested for 24 hours; Call to request Chemistry testing. Reason For Referral No Information Medications Medication SIG (Take, Route, Frequency, Duration) Notes Start Date End Date Status Lasix 40 MG 1 tablet Orally Once a day for 30 day(s) Active Vitamin D (Ergocalciferol) 11236 UNIT as directed Oral twice a week [...] Problem Status W/U Status Risk Notes Problem 891757665 Encounter for screening for malignant neoplasm of colon (Z12.11) Active confirmed Problem 962564264 History of adenomatous polyp of colon (Z86.010) Active confirmed Problem 59363929 Iron deficiency (E61.1) Active confirmed Problem Diverticular disease of colon (814121532) Diverticulosis of large intestine without hemorrhage (K57.30) Active confirmed Problem 514372827188075 Preprocedural examination (Z01.818) Active confirmed Problem 112341378 Gastroesophageal reflux disease, esophagitis presence not specified [...] OF [place] [address] [place] [address] [phone] [id number] IRENE REBOLLAR Self - patient is the insured [employer] CLAIM[employer] [address] [place] [address] [phone] [id number] IRENE REBOLLAR Self - patient is the insured Medical (General) History Medical History History ICD Code Denies NC,CVA,renal disease NIDDM COPD Colonoscopy in 2006 with mul tiple tubular adenoms removed, 1 with moderate dysplasia GERD--UGI in 2016 with a hiatal hernia Neuropathy in arms and legs HTN Edema Surgical History Surgery Date(Month/Year) Right inguinal hernia repair x 2 Heel spur
[2024-07-08 08:17] VITALS: BMI 32.8
[2024-07-12] VITALS (7 sets, daily range): BP systolic 127–166; BP diastolic 61–99; PULSE 90–106; RESP 14–16; TEMP 36.5–36.9; O2SAT 94–98; BMI 33.5
--- NOTE | 2024-07-12 11:14 | PC.NURSE ---
patient states chest pressure in his chest 80 percent of the time sob upon exerction. baseline per patient nonradiating pain and no resp distress. pain is above the heart
[2024-07-12 11:27] LABS: Glucose, Whole Blood 185 mg/dL (60-115)
[2024-07-12] MEDS: Lactated Ringers 1,000 ML 100 ML IVCONT (11:29)
--- NOTE | 2024-07-12 11:35 | PC.NURSE ---
MD SHOOK BY BEDSIDE EVALUATING PATIENT. C/O LEFT SIDE ABOVE THE HEART CHEST PRESSURE PAIN. NONDIAPHORETIC, NO RESP DISTRESS. SOB UPON EXERTION BUT STATES ITS PATIENTS BASELINE. NONRADIATING PAIN. COLOR WNL. ST 102 HEART RATE AT REST.
--- NOTE | 2024-07-12 11:41 | PC.NURSE ---
NO EKG PER MD SHOOK.
--- NOTE | 2024-07-12 12:54 | MHC.SHP ---
Pre-Procedural Eval Section A - 24 Hr Update-Section A only Date of Service: 07/12/24 The patient is an INPATIENT: No The patient has been examined within 24 hours of the surgical procedure. The History & Physical has been completed within 30 days and I have reviewed it.: Yes Section B - Complete if H&P > 30 days Chief Complaint: Benign prostatic hyperplasia with lower urinary tr Allergies: Allergies Allergy/AdvReac Type Severity Reaction Status Date / Time No Known Allergies Allergy Verified 06/02/24 13:07 Plan Diagnosis/Plan: Unchanged I have reviewed the history and physical and performed a pertinent physical examination on my patient. No changes have occurred unless specified. Green light laser prostate. Risks discussed included but not limited to hematuria, urinary urgency, talley catheter. Time Spent With Patient Time: Total time managing care of this patient today ____ minutes.
--- NOTE | 2024-07-12 13:06 | P.CONAN_ITS ---
Documented by User: Kamilah Donnelly NP 07/11/24 13:20 HPI - Anesthesia Eval Consult details Narrative: 74yo M for Laser Ablation Prostate w/Green Light [facility] [place]24 for GIB - s/p EGD with TIVA Follows [facility] [place] moderate aortic stenosis (ANA MARIA 1.2). Optimized to proceed with nml nuc stress 04/2024. PMFSH Active Problems Active Problems: All Active Problems UTI symptoms (Acute) Claudication (Acute) Smoker (Acute) Aortic stenosis (Acute) Paronychia of toe (Acute) Nocturia (Acute) BPH loc w urin obs/LUTS (Acute) Tachycardia (Acute) GI bleed (Acute) Hematuria (Acute) Encounter for subsequent annual wellness visit (AWV) in Medicare patient (Acute) Lung nodule (Acute) Leukocytosis (Acute) Contusion of left chest wall (Acute) COVID-19 virus infection (Acute) Osteoarthritis of right knee (Acute) Infected sebaceous cyst (Acute) Right knee pain (Acute) Microscopic hematuria (Acute) Dermatitis (Acute) Cervical neck pain with evidence of disc disease (Acute) Encounter for annual wellness visit (AWV) in Medicare patient (Acute) Inguinal hernia recurrent unilateral (Acute) AV fistula (Acute) Screening PSA (prostate specific antigen) (Acute) Diabetes (Acute) Inappropriate sinus tachycardia (Acute) Moderate aortic stenosis (Acute) PVD (peripheral vascular disease) (Acute) Hyperlipidemia (Acute) Hypertension (Acute) Leg heaviness (Acute) Past Medical History Medical History Neuropathy COPD (chronic obstructive pulmonary disease) PAD (peripheral artery disease) Arrhythmia Diabetes Dyslipidemia Hyperlipidemia Inappropriate sinus tachycardia Family History Family History Paternal Grandfather CAD (coronary artery disease) Father Pulmonary disease Maternal Grandmother Diabetes mellitus Family history of problems with anesthesia: No Surgical History Surgical History H/O endoscopy H/O colonoscopy History of surgery Hx of hernia repair Hx of cardiac cath History of Problems with Anesthesia: No Social History Social History Household Members: Children Housing: House Are you a primary healthcare applications analyst to a significant other at home: No Do you presently have visiting nurse or other home services: No Alcohol intake: current Alcohol intake frequency: holidays/special occasions only Patient Tobacco Use Status: Former Tobacco user Tobacco use type: Cigarette e-Cigarette/Vaping Use: Never Used Second Hand Smoke Exposure: No Advance Directives Date on File: 12/14/23 service: No Current occupational status: retired Cognitive needs: No Hearing needs: No Vision needs: No Meds Allergies Allergy/AdvReac Type Severity Reaction Status Date / Time No Known Allergies Allergy Verified 06/02/24 13:07 Home Medications ?Medication ?Instructions ?Recorded ?Confirmed ?Last Taken ?Type cholecalciferol (vitamin D3) 50 50 mcg PO MOWEFR 04/29/23 05/09/24 05/03/24 History mcg (2,000 unit) capsule diltiazem HCl 240 mg 240 mg PO DAILY 05/03/24 05/09/24 05/03/24 History capsule,extended release 24 hr fluticasone fur. 100 mcg-umeclid 2 inh inhalation DAILY 05/03/24 05/09/24 05/03/24 History 62.5 mcg-vilant 25 mcg inhalat.powder (Trelegy Ellipta) guaifenesin 1,200 mg tablet, 1,200 mg PO MOWEFR 05/03/24 05/09/24 05/03/24 History extended release 12 hr (Mucinex) ipratropium 20 mcg-albuterol 100 1 puff inhalation QID PRN 05/03/24 05/09/24 05/03/24 History mcg/actuation mist for inhalation Shortness Of Breath Or Wheezing (Combivent Respimat) meloxicam 15 mg tablet 15 mg PO BID for pain 05/03/24 05/09/24 05/03/24 History vitamin B complex 1 tab PO DAILY 05/03/24 05/09/24 05/03/24 History Exam Height,Weight and Vital Signs: Height 6 ft Weight 109.6 kg Pertinent Lab Results Pertinent Lab Results: Laboratory Tests 05/11/24 12:10 WBC 8.9 Hgb 13.7 L Hct 43.8 Plt Count 344 D Sodium 140 Potassium 4.0 Chloride 107 Carbon Dioxide 22 BUN 10 Creatinine 0.80 Narrative Narrative: Holter 2023 * Total monitoring time 3 days. * Underlying rhythm is sinus with an average rate of 83/Min. * Rare supraventricular ectopy. * Rare ventricular ectopy. 2 short runs; longest 5 beats. * No significant pauses or high-grade AV blocks. * Patient markers used in association with sinus rhythm and supraventricular ectopy. * Shortness of breath, rapid heartbeat in patient diary associated with sinus rhythm and supraventricular ectopy. ECHO 2023 Conclusions: - 1. Normal LV ejection fraction of 60 65% with impaired relaxation filling pattern 2. Moderate aortic stenosis 3. Normal RV systolic pressure NM anayeli perf SPECT rest & str 04/2024 Impression: 1. Myocardial perfusion imaging study shows no evidence of ischemia. Fixed inferior perfusion defect that could be related to diaphragmatic attenuation artifact. Less likely prior nontransmural infarct. 2. Gated LVEF is > 70% during stress and rest. 3. Transient ischemic dilatation not present. Assessment and Plan Assessment Anesthesia Assessment: Chart Reviewed Final Anesthetic Review Family History of Problems with Anesthesia: No History of Problems with Anesthesia: No Documented by User: Angel Mendoza MD 07/14/24 11:35 [facility] Past Medical History Medical History Neuropathy COPD (chronic obstructive pulmonary disease) PAD (peripheral artery disease) Arrhythmia Diabetes Dyslipidemia Hyperlipidemia Inappropriate sinus tachycardia Family History Family History Paternal Grandfather CAD (coronary artery disease) Father Pulmonary disease Maternal Grandmother Diabetes mellitus Surgical History Surgical History H/O endoscopy H/O colonoscopy History of surgery Hx of hernia repair Hx of cardiac cath Social History Social History Household Members: Children Housing: House Are you a primary healthcare applications analyst to a significant other at home: No Do you presently have visiting nurse or other home services: No Alcohol intake: current Alcohol intake frequency: holidays/special occasions only Patient Tobacco Use Status: Former Tobacco user Tobacco use type: Cigarette e-Cigarette/Vaping Use: Never Used Second Hand Smoke Exposure: No Advance Directives Date on File: 12/14/23 service: No Current occupational status: retired Cognitive needs: No Hearing needs: No Vision needs: No Meds Allergies Allergy/AdvReac Type Severity Reaction Status Date / Time No Known Allergies Allergy Verified 06/02/24 13:07 Home Medications ?Medication ?Instructions ?Recorded ?Confirmed ?Last Taken ?Type cholecalciferol (vitamin D3) 50 50 mcg PO MOWEFR 04/29/23 05/09/24 05/03/24 History mcg (2,000 unit) capsule diltiazem HCl 240 mg 240 mg PO DAILY 05/03/24 05/09/24 05/03/24 History capsule,extended release 24 hr fluticasone fur. 100 mcg-umeclid 2 inh inhalation DAILY 05/03/24 05/09/24 05/03/24 History 62.5 mcg-vilant 25 mcg inhalat.powder (Trelegy Ellipta) guaifenesin 1,200 mg tablet, 1,200 mg PO MOWEFR 05/03/24 05/09/24 05/03/24 History extended release 12 hr (Mucinex) ipratropium 20 mcg-albuterol 100 1 puff inhalation QID PRN 05/03/24 05/09/24 05/03/24 History mcg/actuation mist for inhalation Shortness Of Breath Or Wheezing (Combivent Respimat) meloxicam 15 mg tablet 15 mg PO BID for pain 05/03/24 05/09/24 05/03/24 History vitamin B complex 1 tab PO DAILY 05/03/24 05/09/24 05/03/24 History Exam Airway Mallampati Class: II TM Dist: >3cm Neck ROM: Full Loose/Missing/Broken Teeth: Yes Heart: Noncardiac chronic chest pain; ruled out for ischemia Assessment and Plan Assessment Anesthesia Assessment: Anesthesia Plan Discussed Final Anesthetic Review NPO: Yes ASA Class: III Final Preanesthetic Review: No Changes in Pt Med Stat, Meds/Allgs Chart Reviewed, Consent Obtained/Reviewed and Anes Risks/Benef Reviewed Patient Risk: Intermediate Procedure Risk: Low Anesthetic Plan Anesthetic Plan: GA Disposition: Standard PACU
--- NOTE | 2024-07-12 14:05 | W.PM.OPN ---
Operative Note Operative Note Date of Service: 07/12/24 Narrative: PreOperative Diagnosis: BPH Post Operative Diagnosis: BPH Procedure: GreenLight Laser Enucleation of the prostate CPT 94010 Surgeon: Dr Gordy Hedrick Anesthesia: General History of bladder outlet obstruction. Treated with alpha-andrzej and proscar. Still with symptoms. Recommendation for prostate procedure with laser enucleation of prostate. Risks and benefits have been discussed. Procedure: After informed consent was verified the patient was brought to the operating room and placed in a supine position. Anesthesia was administered per protocol. Patient was placed in modified dorsal lithotomy position and prepped and draped in a sterile fashion. Safety pause time-out was confirmed. Antibiotics have been given. Ancef 2 gm IV. A Twenty-four Syrian laser cystoscope was inserted per urethra. Urine was sent for culture. No abnormalities were found in the anterior and bulbar urethra. The prostatic urethra showed mild prominence of the median lobes, bilobar enlargement. The bladder was examined and both ureteric orifices were seen in their normal positions away from the area of interest. Moderate Bladder trabeculation. Using a GreenLight laser with initial settings of 80 mathias incisions were made at the 5 and 7 o'clock position. The incisions were taken down from the bladder neck down to the area just proximal of the veru. These were gradually deepened in order to define the lateral aspects of the median lobe area. The deep boundary of enucleation was defined by the prostate surgical capsule. Once clearly defined the grooves were extended in the lateral directions in order to create a deep groove. In order to effectively ablate and enucleate the tissue the laser power was increased to 110 mathias and then 130 Mathias. The median lobe was incised initially. The tissue was approached from both the left lateral side and from the medial aspect. Attention was taken to the lateral lobes starting the the right side. The tissue was lasered down to the level of the veru. Once complete a similar procedure was performed on the left lateral prostatic lobe. Again ureteric orifice was clearly seen. The prostate tissue vaporized well, without significant tissue available to send to pathology. The urine was pink tinged. There was good hemostasis noted. Both ureteric orifices were reviewed again in shown to be patent in away from any areas of energy damage. The scope was removed. A 22 Syrian Us catheter 30 cc balloon, was placed into the bladder using a flexible stylet. pink tinged efflux was obtained upon irrigation with a Lisa piston syringe. (50 mL sterile water placed into the balloon) and gentle traction was placed. A hemostat was used to hold tension on the catheter to control bleeding during patient moved and transported. A drainage bag was placed. The patient tolerated the procedure well, he was extubated in the operating and transferred in a stable condition to the recovery area. Once transportation is complete to the PACU the hemostat will be removed. Total Power mathias- 130, Joules [id number] Drains: Us catheter [address]
[2024-07-12] MEDS: Phenazopyridine HCL 200 MG TABLET PO (14:44)
== END 2024-07-12 15:13 | disposition home or self-care (01) ==
PROVIDERS: PCP Nurse Practitioner Family; Visit Provider Urology
PROC: (CPT 52648; principal; 2024-07-12 12:30)
DX: Z12.5 Encounter for screening for malignant neoplasm of prostate (principal); N40.1 Benign prostatic hyperplasia with lower urinary tract symptoms; R35.1 Nocturia; R31.9 Hematuria, unspecified; R39.9 Unspecified symptoms and signs involving the genitourinary system; N32.89 Other specified disorders of bladder; E11.9 Type 2 diabetes mellitus without complications; E78.5 Hyperlipidemia, unspecified; I47.11 Inappropriate sinus tachycardia, so stated; Z79.82 Long term (current) use of aspirin; Z79.899 Other long term (current) drug therapy; Z79.84 Long term (current) use of oral hypoglycemic drugs; Z98.890 Other specified postprocedural states; Z87.891 Personal history of nicotine dependence
CPT/HCPCS: 52649; 82947; 87086; J0690; J2003; J2704; J3010

== ENCOUNTER → 2024-07-12 10:16 | Outpatient (BNV) | payer MEDICARE, SELFPAY | PROVIDERS: PCP Nurse Practitioner Family; Visit Provider Urology | DX: N40.0 Benign prostatic hyperplasia without lower urinary tract symptoms (principal) | CPT/HCPCS: 52649 ==

== ENCOUNTER → 2024-07-14 08:22 | Outpatient (BNVA) | payer MEDICARE, SELFPAY | PROVIDERS: PCP Nurse Practitioner Family; Visit Provider Urology | DX: N40.1 Benign prostatic hyperplasia with lower urinary tract symptoms (principal); R31.9 Hematuria, unspecified | CPT/HCPCS: 51700; 51798 ==

== ENCOUNTER 2024-08-26 15:08 | Outpatient (REF) | payer MEDICARE, SELFPAY | END 2024-08-26 15:09 | disposition home or self-care (01) | LOC: HO.LAB 15:08 | PROVIDERS: PCP Nurse Practitioner Family; Visit Provider Urology | DX: Z09 Encounter for follow-up examination after completed treatment for conditions other than malignant neoplasm (principal); N39.0 Urinary tract infection, site not specified; N40.1 Benign prostatic hyperplasia with lower urinary tract symptoms | CPT/HCPCS: 81003; 87086; 99212 ==

== ENCOUNTER 2024-08-26 15:08 | Outpatient (AMB) | payer MEDICARE, SELFPAY ==
--- OUTSIDE RECORDS SUMMARY | 2023-04-01 10:40 | XMS_ITS ---
Author Organization [facility] Address [address] [place] [id number] Care Team Providers Care [employer] Source Operations Specialist Name Role Phone PAOLO TERRELL Primary Care Provider Raji Salas Unavailable [phone] Ezekiel Luu Jr Unavailable REASON FOR VISIT GI bleed Encounters Encounter Location Date Provider Diagnosis [facility] Inpatient [address] [place] [id number] 04/01/2023 Ezekiel Luu Jr Plan Of Treatment No Information Progress Notes * ANA ROSAIRENE MARTINEZ WDOB: 3 (74 yo M)Acc No.[id number]:04/01/2023 COLON WITH MAC Patient: IRENE LIRA Provider: Sajan Luu MD :[id number] A ge:73 Y S ex:Male Date:04/01/2023 Address:[address] [place], [place] [id number] Pcp:PAOLO TERRELL Subjective: * Chief Complaints: * 1 . GI bleed. * Medical History: Objective: * Vitals: Assessment: Plan: * Treatment: * * The named appointment provid er may or may not be the originator of this progress note, and it is not deemed complete until electronically signed by the appointment provider. Sign off status: Pending * Provider: Sajan Luu MD Date: 04/01/2023 Generated for Raqueli ng/Facels[employer]/eTransmitting on: 08/26/2024 03:16 PM EDT
--- NOTE | 2024-08-26 16:01 | MHC.OFFVIS ---
Intake Visit Reasons: Greenlight laser F/U Intake Note: Patient presents today for greenlight laser/follow up Urology Medication: Tamsulosin and Finasteride Antibiotic Allergy: none Blood thinner: Aspirin PVR:16ml Job Boss Required: No Accompanied by: Self / Same As Patient Allergies No Known Allergies Allergy (Verified 08/26/24 16:02) Medication List - Last Reconciled 08/26/24 by Gordy Hedrick MD cholecalciferol (vitamin D3) 50 mcg PO MOWEFR diltiazem HCl CD 240 mg PO DAILY doxycycline hyclate 100 mg PO BID 3 days empagliflozin (Jardiance) 10 mg PO DAILY ezetimibe 10 mg PO DAILY finasteride (Proscar) 5 mg PO DAILY 90 days zytebmbczfv-xbvwzwqoc-vhxzsbwv 100-62.5-25 mcg (Trelegy Ellipta) 2 inhalations inhalation DAILY guaifenesin ER (Mucinex) 1,200 mg PO MOWEFR ipratropium-albuterol 20-100 mcg/actuation (Combivent Respimat) 1 puff inhalation QID PRN ivabradine (Corlanor) 5 mg PO DAILY 90 days meloxicam 15 mg PO BID metformin 1,000 mg PO BID 90 days omeprazole 40 mg PO DAILY@0630 phenazopyridine (Pyridium) 200 mg PO BID rosuvastatin 40 mg PO DAILY verapamil ER 240 mg PO DAILY vitamin B complex 1 tab PO DAILY HPI Comments Details: 08/26/24-- History of Present Illness - The patient is a 74-year-old male presenting for follow-up after GreenLight laser therapy on 07/12/24 for Benign Prostatic Hyperplasia (BPH). - The patient has been experiencing symptoms of BPH and was previously treated with dual medication therapy, including tamsulosin and finasteride. - He reports post procedure urinating approximately every four hours during the day and once at night, indicating improvement in urinary frequency. - The patient feels he has a good urinary flow post-procedure. - Urinalysis was negative for blood or leukocytes, and a bladder scan showed a post-void residual of 16 mL, indicating effective bladder emptying. Results - Urinalysis: Negative for blood or leukocytes - Bladder scan: Post-void residual of 16 mL Discussion Notes The plan is to discontinue tamsulosin while continuing finasteride. Follow-up is scheduled in nine months with a PSA test at that time. 04/25/24--Cody is a 74-year-old gentleman who was initially evaluated due to hematuria. Workup included CT scan and office cystoscopy which noted an obstructive median lobe. The patient is prescribed tamsulosin and finasteride. He complains of having burning sensation when urinating for the past 5 days. Urinalysis leukocytes negative blood 1+ leukocytes negative, glucose 2+. We will send surveillance urine culture. The patient is also concerned that he has continued hesitancy. He is interested in proceeding with surgical intervention for bladder outlet obstruction from enlarged prostate. Bladder scan PVR 45 mL. PSA-07/09/2023--1.23 ng/mL. Continue PSA screening. Discussed TURP versus GreenLight laser. 12/24/23--Cody is a 73-year-old gentleman who was initially evaluated due to hematuria. Workup included CT scan and office cystoscopy which noted an obstructive median lobe. The patient is prescribed tamsulosin and finasteride was added in May of this year. He states that he has not noticed a major difference in his voiding. He is bothered mainly by getting up at night about every 2 hours. Lasix 40 mg is on his medication list but the patient states he has not been taking this for several months. He has significant coronary artery disease and peripheral vascular disease and would need cardiac clearance prior to any surgical procedures. Follow-up in 3 months. 06/25/2023--Cody was seen as a new patient evaluation 05/11/2023, referred due to hematuria. He was started on tamsulosin 0.4 mg daily for obstructive voiding symptoms. He saw blood in his urine in March, history of nicotine use. He states he has not seen any further episodes of blood in the urine. He presents for office cystoscopy today. Cystoscopy findings -- prostatic urethra bilobar enlargement with prominent median lobe, bulbous urethra WNL, no suspicious bladder lesions visualized. I have discussed treatment options for his concerns regarding urination. Maximizing medication versus surgical management including but not limited to GreenLight laser or TURP. The patient wants to avoid surgical procedures at this time. Plan discussed increase tamsulosin to b.i.d. and start Proscar 5 mg daily. 05/11/23--Cody is a 73-year-old male who has been referred due to hematuria. PMHx of vbj-djapdfs-gjewbdsuz diabetes mellitus, essential hypertension, mixed hyperlipidemia, mood disorder. In review of the chart the patient is recently an inpatient at [facility], he presented to the ED on 03/30/2023 complaining of painless blood in stools, he had workup done by GI and is discharged on 04/02/23. I reviewed CT imaging done on 03/30/2023 kidneys were within normal limits. The patient complains of nocturia x4, complains of intermittent stream. States he noticed episode of blood in the urine after urination this March x1 episode, denies dysuria. Denies history of kidney stones, history of nicotine use, cigarette use started at age 15 quit age 63 smoked up to a pack and a half daily. I have reviewed chart CT imaging as noted above kidneys negative for stones or solid masses, 03/17/2023 urine culture less than 10,000 colonies. I have discussed reasons for blood in the urine may include but are not limited to kidney stones, cancer in the urinary tract, kidney stone disease or inflammatory conditions of the urinary tract, BPH. I have discussed workup to include evaluation of the upper tracts and consideration for cystoscopy evaluation. UA-blood trace, leukocytes negative; bladder scan PVR 20 mL. Prostate exam: Smooth, enlarged no suspicious nodules. Plan discussed schedule office cystoscopy. Trial tamsulosin 0.4 mg daily. PFSH Medical History Neuropathy COPD (chronic obstructive pulmonary disease) PAD (peripheral artery disease) Arrhythmia Diabetes Dyslipidemia Hyperlipidemia Inappropriate sinus tachycardia Surgical History H/O endoscopy H/O colonoscopy History of surgery Hx of hernia repair Hx of cardiac cath Family History Paternal Grandfather CAD (coronary artery disease) Father Pulmonary disease Maternal Grandmother Diabetes mellitus Social History Household Members: Children Housing: House Are you a primary memory care director to a significant other at home: No Do you presently have visiting nurse or other home services: No Alcohol intake: current Alcohol intake frequency: holidays/special occasions only Patient Tobacco Use Status: Former Tobacco user Tobacco use type: Cigarette e-Cigarette/Vaping Use: Never Used Second Hand Smoke Exposure: No Advance Directives Date on File: 12/14/23 service: No Current occupational status: retired Cognitive needs: No Hearing needs: No Vision needs: No Review of Systems Const All systems reviewed & are unremarkable except as noted in HPI and below Reports no additional complaints Eyes Reports no additional complaints ENT Reports no additional complaints Card Reports no additional complaints Resp Reports no additional complaints GI Reports no additional complaints Reports as per HPI Musc Reports no additional complaints Skin/Breast Reports system reviewed and no additional complaints, except as documented Neuro Reports no additional complaints Psych Reports no additional complaints Endo Reports no additional complaints Dillon/Lymph Reports no additional complaints Aller/Immun Reports no additional complaints Results AMB Urinalysis, Automated UA Leukoctes 0 Sharita/uL Last Edit by Martin Zhong CCM on 08/26/24 16:36 UA Nitrite Negative Last Edit by Martin Zhong [facility] on 08/26/24 16:36 UA Urobilinogen 0.2 mg/dL Last Edit by Martin Zhong [facility] on 08/26/24 16:36 UA Protein 30 mg/dL Last Edit by Martin Zhong [facility] on 08/26/24 16:36 UA pH 5.5 Last Edit by Martin Zhong [facility] on 08/26/24 16:36 UA Blood 200 Musa/uL Last Edit by Martin Zhong [facility] on 08/26/24 16:36 UA Specific [place] 1.030 Last Edit by Martin Zhong CCM on 08/26/24 16:36 UA Ketone Negative Last Edit by Martin Zhong [facility] on 08/26/24 16:36 UA Bilirubin 0 mg/dL Last Edit by Martin Zhong [facility] on 08/26/24 16:36 UA Glucose 1000 mg/dL Last Edit by Martin Zhong [facility] on 08/26/24 16:36 Results Reviewed Results Reviewed: Laboratory Last Values Urine pH (Auto) 5.5 08/26/24 16:35 Specific [place] (Auto) 1.030 08/26/24 16:35 Urine Protein (Auto) 30 mg/dL 08/26/24 16:35 Glucose (UA)(Auto) 1000 mg/dL 08/26/24 16:35 Urine Ketones (Auto) Negative 08/26/24 16:35 Urine Blood (Auto) 200 Musa/uL 08/26/24 16:35 Urine Nitrite (Auto) Negative 08/26/24 16:35 Urine Bilirubin (Auto) 0 mg/dL 08/26/24 16:35 Urine Urobilinogen (Auto) 0.2 mg/dL 08/26/24 16:35 Leukocyte Esterase (Auto) 0 Sharita/uL 08/26/24 16:35 Date of Service: 03/30/23 EXAMINATION: CTA ABDOMEN AND PELVIS WITH AND WITHOUT CONTRAST CLINICAL INFORMATION: Rectal bleeding COMPARISON: CT chest from 12/30/2022, CT abdomen from 02/28/2021 FINDINGS: LOWER LUNGS: Emphysematous changes. Previously identified lung nodules are less conspicuous on current examination. No pneumothorax. No large pleural effusion. LIVER, GALLBLADDER, AND BILIARY TREE: The liver is normal in size, shape, and attenuation. Redemonstration of multiple hypodense hepatic foci the largest measuring up to 1.2 cm in the left hepatic lobe, stable No biliary ductal dilatation is present. The gallbladder is unremarkable with no evidence of radiopaque gallstones, gallbladder wall thickening, or obvious pericholecystic inflammatory changes. PANCREAS: Mild atrophy of the pancreas. SPLEEN: Unremarkable. ADRENAL GLANDS: Unremarkable. KIDNEYS AND URETERS: The kidneys are normal in size, shape, and attenuation. No hydronephrosis, hydroureter, or calculi seen. No perinephric stranding. BLADDER: Unremarkable. GASTROINTESTINAL TRACT: Small hiatal hernia. Colonic diverticulosis without acute diverticulitis. The small and large bowel are unremarkable. The appendix is unremarkable. ABDOMINAL WALL: Status post right inguinal repair. Small fat filled left inguinal hernia. LYMPH NODES: No enlarged lymph nodes per size criteria. VASCULAR: Abdominal aorta is nonaneurysmal. Atherosclerotic calcifications of the abdominal aorta and its branches. No evidence of contrast extravasation to suggest hemorrhage. PELVIC VISCERA: Prostate measures 5.2 cm. OSSEOUS STRUCTURES: Multilevel degenerative changes of the thoracolumbar lumbosacral spine. Osteopenia. Sclerotic focus right femoral head/neck statistically representing a bone island. Additional bone island noted in the left iliac wing. Levocurvature of the lumbar spine. IMPRESSION: 1. No acute process of the abdomen or pelvis identified. 2. No evidence of contrast extravasation to suggest hemorrhage. 3. Redemonstration of multiple hypodense hepatic foci the largest measuring up to 1.2 cm in the left hepatic lobe, stable. 4. Small hiatal hernia. 5. Colonic diverticulosis without acute diverticulitis. 6. Status post right inguinal repair. 7. Prostate measures 5.2 cm. 8. Osteopenia. Assessment & Plan Assessment & Plan (1) Screening PSA (prostate specific antigen): Code(s): Z12.5 - Encounter for screening for malignant neoplasm of prostate Category: Medical (2) BPH loc w urin obs/LUTS: Code(s): N40.1 - Benign prostatic hyperplasia with lower urinary tract symptoms Category: Medical Plan Plan - Discontinue tamsulosin while continuing finasteride therapy. - Schedule follow-up in nine months with a PSA test to monitor prostate health. Orders: Orders Urine Culture 08/26/24 N39.0 - Urinary tract infection, site not specified AMB Urinalysis Automated 08/26/24 Z13.9 - Encounter for screening, unspecified Patient Instructions: The patient had an opportunity to ask questions regarding treatment plan. The patient expressed understanding and agreement with the above treatment plan. The patient is aware they should contact our office by phone for worsening of their current condition or the appearance of new symptoms. Compliance is encouraged with any medications and followup testing that is ordered. It is a privilege to be allowed the opportunity to participate in the urologic care of your patient. If you have any questions or concerns regarding treatment for the above conditions please do not hesitate to contact me. The office telephone contact is [phone]. This note is constructed in part using voice recognition software. While every effort has been made to ensure accuracy cigar roller errors may have been included. Yours sincerely, Gordy Hedrick MD Scribe Plan - Not visible on output: Patient was informed and verbally consented to the use of an ambient scribe for clinic note documentation during this visit. Coding Level of Care Code Global (42322) Diagnoses Screening PSA (prostate specific antigen) Z12.5 BPH loc w urin obs/LUTS N40.1
== END 2024-08-26 16:06 | disposition home or self-care (01) ==
LOC: HO.HUSH 15:08
PROVIDERS: PCP Nurse Practitioner Family; Visit Provider Urology
DX: Z13.9 Encounter for screening, unspecified (principal)
CPT/HCPCS: 99024

== ENCOUNTER 2024-10-13 08:08 | Outpatient (AMB) | payer MEDICARE, SELFPAY ==
--- OUTSIDE RECORDS SUMMARY | 2024-10-13 08:15 | XMS_ITS | Patient Health Record ---
Author Organization [facility] Address [address] [place] [address] Care Team Providers Care Fire Controlman Name Role Phone PAOLO SAMAYOA Primary Care Provider Raji Salas Unavailable [phone] Allergies Allergen (clinical drug ingredient) Drug/Non Drug Allergy documented on EMR Reaction Allergy Type Onset Date Status Aloe Aftersun Unknown Drug Allergy Act alejandro Results Component Value Reference Range Notes Complete Blood Count Auto Di ff Reviewed date:05/05/2024 10:11:31 AM Interpretation: Performing Lab:[facility], [address] [place] [phone] Notes/Report: White Blood Count 10.5 4.8-10.8 X10*3/uL [...] ff Reviewed date:05/05/2024 10:10:45 AM Interpretation: Performing Lab:[facility], [address] [place] [phone] Notes/Report: White Blood Count 8.9 4.8-10.8 X10*3/uL [...] Pathology Reviewed date:05/09/2024 06:04:55 PM Interpretation: Performing Lab:[facility], [address] [place] [phone] Notes/Report: CT angio abdomen Reviewed date:05/05/2024 10:11:09 AM Interpretation: Performing Lab: Notes/Report: [address] [address] [address] Scan Report Signed with Addenda Patient: Irene Rebollar MR#: [id number] 61 : 1950 Acct:[id number] Age/Sex: 74 / M ADM Date: 05/03/24 Loc: [facility] [id number]: Cristiano Serrano MD Ordering Physician: Raji Tellez MD Date of Service: 05/04/24 Procedure(s): CT angio abdomen Accession Number(s): [id number] cc: Paolo Samayoa [facility]-; Raji Tellez MD Report Number: [id number]: Total DLP = 2273.00 mGy-cm ADDENDUM This [...] in OV> 05/04/241845 DD/ 43 TD/TT: 05/04/241843 Injection Press Operator: Complete Blood Count Auto Di ff Reviewed date:05/05/2024 05:48:11 PM Interpretation: Performing Lab:[facility], [address] [place] [phone] Notes/Report: White Blood Count 8.3 4.8-10.8 X10*3/uL [...] Gel Reviewed date:05/05/2024 06:02:20 PM Interpretation: Performing Lab:[facility], [address] [place] [phone] Notes/Report: Hold Green Gel See Note Specimen held untested for 24 hours; Call to request Chemistry testing. Reason For Referral No Information Medications Medication SIG (Take, Route, Frequency, Duration) Notes Start Date End Date Status Lasix 40 MG 1 tablet Orally Once a day for 30 day(s) Active Vitamin D (Ergocalciferol) 76364 UNIT as directed Oral twice a week [...] Problem Status W/U Status Risk Notes Problem 383434067 Encounter for screening for malignant neoplasm of colon (Z12.11) Active confirmed Problem 024934864 History of adenomatous polyp of colon (Z86.010) Active confirmed Problem 04760905 Iron deficiency (E61.1) Active confirmed Problem Diverticulosis o f large intestine without hemorrhage (K57.30) Active confirmed Problem 362538510485864 Preprocedural examination (Z01.818) Active confirmed Problem 751810167 Gastroesophageal reflux disease, esophagitis presence not specified [...] OF [place] [address] [place] [address] [id number] IRENE REBOLLAR Self - patient is the insured [employer] CLAIM[employer] [address] [place] [address] [id number] IRENE REBOLLAR Self - patient is the insured Medical (General) History Medical History History ICD Code Denies [place],CVA,renal disease NIDDM COPD Colonoscopy in 2006 with mul tiple tubular adenoms removed, 1 with moderate dysplasia GERD--UGI in 2015 with a hiatal hernia Neuropathy in arms and legs HTN Edema Surgical History Surgery Date(Month/Year) Right inguinal hernia repair x 2 Heel spur
--- OUTSIDE RECORDS SUMMARY | 2024-10-13 08:15 | XMS_ITS | Patient Health Record ---
Author Organization [facility] Address [address] [address] Care Team Providers Care Lap Machine Operator Name Role Phone Geovani Sears Primary Care Provider Unav ailable Crow Morris Unavailable [phone] Allergies No Known Allergies Results Component Value Reference Range Notes HEMOGLOBIN A1C (GLYCOHEMOGLO BIN) Reviewed date:05/13/2024 01:37:24 PM Interpretation: Performing Lab: Notes/Report: HEMOGLOBIN A1C % (HH) 6.7 Reason For Referral No Information Medications Medication SIG (Take, Route, Frequency, Duration) Notes Start Date End Date Status Corlanor 5 MG Oral; Duration: 90 Active Vitamin B Complex - as directed Orally Active Ketoconazole Active Vitamin D3 Active Omeprazole 40 MG Orally twice a day Active Combivent Respimat 20-100 MCG/ACT Inhalation; Duration: 90 Active Verapamil HCl ER 240 MG Oral; Duration: 90 Active Extra Depth Orthopedic Shoes (1 Pair) with Customized Heat Molded Multidensity Innersoles (3 Pair) as directed Dx: NIDDM/Polyneuropathy (E11.42), Hammertoe Foot Deformity (M20.41,M20.42), Preulcerative Skin Lesion(s) (L85.1 11/03/2023 Active Hydrocortisone Activ e Combivent Active Fluocinonide Active Clotrimazole-Betamethason e Active Ciclopirox Olamine A ctive Mucinex Active Triamcinolone Acet & Anesth Active metFORMIN HCl 500 MG Orally Once a day Active Amoxicillin-Pot Clavulanate Active Betamethasone Valerate Active Baby Aspirin 81 mg once a day Active Tacrolimus 0.1 % External; Duration: 90 Active Eucrisa 2 % External; Duration: 30 Active dilTIAZem HCl ER Coated Beads 240 MG Oral; Duration: 90 Active Betamethasone Dipropionate Aug 0.05 % External; Duration: 30 Active DULoxetine HCl 20 MG Oral; Duration: 90 Active Vitamin B12 Not-Taki ng Jardiance 10 MG Oral; Duration: 90 Active Stiolto Respimat Not -Taking Rosuvastatin Calcium 40 MG Oral; Duration: 90 Active Tamsulosin HCl 0.4 MG Oral; Duration: 90 Active Vitamin D2 Not-Takin g Gabapentin 300 MG Orally Three times a day Not-Taking Furosemide 40 mg once a day No t-Taking Trelegy Ellipta 100-62.5-25 MCG/ACT Inhalation; Duration: 90 Active Meloxicam 15 MG Orally Once a day Not-Taking Finasteride 5 MG Oral; Duration: 90 Active Lipoic Acid Not-Taki ng Immunizations Vaccine Route Administration Date Status Comme nts Influenza Unknown 01/11/2018 Administered Influenza Unknown 10/31/2022 Administered Influenza Unknown 12/01/2023 Administered Social History Tobacco Use: Social History [...] Problem Acquired hammer toe of right foot (9343878358199703 ) Other hammer toe(s) (acquired), right foot (M20.41) Active confirmed Response to treatment, Improvemen t Problem Acquired hammer toe of left foot (2801317753919430 ) Other hammer toe(s) (acquired), left foot (M20.42) Active confirmed Response to treatment, Improvemen t Problem Polyneuropathy due to type 2 diabetes mellitus (997114010) Type 2 diabetes mellitus with diabetic polyneuropathy (E11.42) Active confirmed Vital Signs Blood pressure diastolic 65 mm Hg 08/16/2024 Height 6 ft in 08/16/2024 Blood pressure systolic 128 mm Hg 08/16/2024 Weight 245 lbs 08/16/2024 BMI 33.22 kg/m2 08/16/2024 Procedures Procedure Date Ordered Date Performed Result Body Sit e 23329-UWSANBV NAIL, 6 OR MORE 11/03/2023 N/A 22496-Kedcnxnt Plate 11/03/2023 N/A 24039-JGVI SKIN LESIONS, 2 TO 4 11/03/2023 N/A 24286-QXAHMHW NAIL, 6 OR MORE 02/02/2024 N/A 21134-XDIL SKIN LESIONS, 2 TO 4 02/02/2024 N/A 63265-CBWHTAR NAIL, 6 OR MORE 05/13/2024 N/A 45355-YXOP SKIN LESIONS, 2 TO 4 05/13/2024 N/A 45672- Removal of Foreign Body, Subcut 05/13/2024 N/A 70016-RKEUXZK NAIL, 6 OR MORE 08/16/2024 N/A 56400-KYNZ SKIN LESIONS, 2 TO 4 08/16/2024 N/A Encounters Encounter Location Date Provider Diagnosis [address] [address] 11/03/2023 Crowerin Morris Type 2 diabetes mellitus with diabetic polyneuropathy E11.42 ; Tinea unguium B35.1 ; Ingrown nail L60.0 ; Other hammer toe(s) (acquired), right foot M20.41 and Other hammer toe(s) (acquired), left foot M20.[address] [address] 02/02/2024 Crowerin Morris Type 2 diabetes mellitus with diabetic polyneuropathy E11.42 and Tinea unguium B35.[address] [address] 05/13/2024 Crow Alexandra Type 2 diabetes mellitus with diabetic polyneuropathy E11.42 ; Tinea unguium B35.1 ; Other hammer toe(s) (acquired), right foot M20.41 ; Other hammer toe(s) (acquired), left foot M20.42 and Puncture wound with foreign body, right foot, initial encounter S91.341A [address] [place] [address] 08/16/2024 Crow Morris Type 2 diabetes mellitus with diabetic polyneuropathy E11.42 and Tinea unguium B35.1 [facility] [address] [address] 05/03/2024 Crow Morris Assessments Encounter Date Diagnosis [...] E11.42) 05/13/2024 Tinea unguium (ICD-10 - B35.1) 08/16/2024 Type 2 diabetes mellitus with diabetic polyneuropathy (ICD-10 - E11.42) 08/16/2024 Tinea unguium (ICD-10 - B35.1) 05/13/2024 Other [...] (ICD-10 - M20.42) 02/02/2024 Other 05/13/2024 Other 08/16/2024 Other Plan Of Treatment Pending Test Test Name Order Date 98926-WQZWRVN NAIL, 6 OR MORE 11/03/2023 43233-WHIZQPF NAIL, 6 OR MORE 02/02/2024 81148-VQBHXHQ NAIL, 6 OR MORE 05/13/2024 10756-ARRWKIL NAIL, 6 OR MORE 08/16/2024 31745-Tmoydbug Plate 11/03/2023 62017- Debride <25 sq cm 07/23/2018 50718 I&D ABSCESS- SIMPLE,SINGLE 019 81181-QJIK SKIN LESIONS, 2 TO 4 11/03/19 24 80567-JQWZ SKIN LESIONS, 2 TO 4 05/14/19 25 08024-MLIT SKIN LESIONS, 2 TO 4 02/02/20 24 25131-DNUB SKIN LESIONS, 2 TO 4 08/17/19 12621- Removal of Foreign Body, Subcut 0 05/13/2024 Next Appt Details Provider Name:Crow Morris , 11/18/2024 09:00:00 AM, [address] [place], [address], Insurance Providers Payer Name Payer Address Payer Phone Subscriber Number Group Number Insured Name Patient Relationship to Insured Coverage Start Date Coverage End Date Medicare National Govt [employer] [address] [facility] [place] [address] [id number] Cody Rebollar Self - patient is the insured 7 [employer] [address] [place] [address] [phone] [id number] Cody Rebollar Self - patient is the [...] Hernia Repair 2000 Hospitalization History Reason Date(Month/Year) [facility] [place]rowing up blood 04/2023
[2024-10-13 08:27] VITALS: BP 130/82; PULSE 100; BMI 34.4
--- NOTE | 2024-10-13 08:27 | MHC.OFFVIS ---
Vital Signs 10/13/24 08:27 Height 6 ft Weight 253 lb 8.505 oz BMI 34.4 BP 130/82 Blood Pressure Location Lt brachial Position Sitting Pulse 100 Intake Visit Reasons: 1 yr follow up Intake Note: 1 year follow-up ekg c/o chest pain x3 months Feather Edger Required: No Allergies No Known Allergies Allergy (Verified 08/26/24 16:02) Medication List - Last Reconciled 10/13/24 by Broderick Wang MD aspirin (Adult Aspirin Regimen) 81 mg PO DAILY cholecalciferol (vitamin D3) 50 mcg PO MOWEFR diltiazem HCl CD 240 mg PO DAILY empagliflozin (Jardiance) 10 mg PO DAILY ezetimibe 10 mg PO DAILY finasteride (Proscar) 5 mg PO DAILY 90 days yhyujqwrmli-dgraoluru-heuyizrk 100-62.5-25 mcg (Trelegy Ellipta) 2 inhalations inhalation DAILY guaifenesin ER (Mucinex) 1,200 mg PO MOWEFR ipratropium-albuterol 20-100 mcg/actuation (Combivent Respimat) 1 puff inhalation QID PRN ivabradine (Corlanor) 5 mg PO DAILY 90 days meloxicam 15 mg PO DAILY PRN metformin 1,000 mg PO BID omeprazole 40 mg PO DAILY@0630 phenazopyridine (Pyridium) 200 mg PO BID rosuvastatin 40 mg PO DAILY verapamil ER 240 mg PO DAILY vitamin B complex 1 tab PO DAILY HPI Comments Details: Cody comes for follow-up. Said in the last few months he has had 3 episodes of severe chest discomfort. He said he has constant chest pressure all the time but this was different. All of the symptoms happen at rest. There has been gradually more intense. He is just rested in his symptoms gone away. He underwent a dobutamine system Mibi study very went up to 78% of age predicted maximum heart rate with normal myocardial perfusion imaging in with no ischemia. Patient also notices that with exertion now his heart rate only goes up to 128 beats per minute but still has shortness of breath and feels not well. Patient denies any orthopnea, PND. Has been seen by vascular surgery and felt that he has stable claudication and no significant vascular disease. He is currently taking low-dose aspirin therapy. However medication list shows both diltiazem and verapamil on his medication list. This is unusual. He should be on 2 different calcium channel blockers. He is also taking Corlanor once a day. [facility], [facility] Medical History (Updated 10/13/24 @ 09:04 by Broderick Wang MD) Neuropathy COPD (chronic obstructive pulmonary disease) PAD (peripheral artery disease) Arrhythmia Diabetes Dyslipidemia Hyperlipidemia Inappropriate sinus tachycardia Surgical History H/O endoscopy H/O colonoscopy History of surgery Hx of hernia repair Hx of cardiac cath Family History Paternal Grandfather CAD (coronary artery disease) Father Pulmonary disease Maternal Grandmother Diabetes mellitus Social History Household Members: Children Housing: House Are you a primary technical healthcare consultant to a significant other at home: No Do you presently have visiting nurse or other home services: No Alcohol intake: current Alcohol intake frequency: holidays/special occasions only Patient Tobacco Use Status: Former Tobacco user Tobacco use type: Cigarette e-Cigarette/Vaping Use: Never Used Second Hand Smoke Exposure: No Advance Directives Date on File: 12/14/23 service: No Current occupational status: retired Cognitive needs: No Hearing needs: No Vision needs: No Review of Systems Const Denies chills, Denies fatigue, Denies fever(s), Denies frequent falls, Denies weakness, Denies weight gain and Denies weight loss ENT Denies dizziness Card Denies chest pain, Denies leg edema, Denies lightheadedness, Denies palpitations, Denies dyspnea, Denies dyspnea on exertion, Denies orthopnea and Denies other (loss of consciousness) Resp Denies cough, Denies dyspnea and Denies dyspnea on exertion GI Denies hematochezia and Denies change in stool character Musc Denies abnormal gait, Denies muscle weakness, Denies numbness, Denies radiating pain into limb and Denies tingling Neuro Denies abnormal gait, Denies dizziness, Denies frequent falls, Denies numbness, Denies tingling and Denies weakness Endo Denies fatigue and Denies palpitations Physical Exam Vital Signs: Last Vital Signs Pulse 100 10/13/24 08:27 BP 130/82 08/14/25 08:27 BMI result Body Mass Index 34.4 Repeat blood pressure is 130/78 Pulse of 112 beats per minute Const General: alert and awake Nutritional Appearance: obese Orientation/consciousness: patient oriented x3 HEENT Head: Yes normocephalic and Yes atraumatic Neck Neck: Yes trachea midline, Yes supple and Yes no JVD Chest Chest palpation & inspection: abnormal inspection of the chest barrel chest Resp Effort & Inspection: normal respiratory effort Auscultation: crackles (Coarse) on the right at the base, no rales, no rhonchi, no wheezes and diminished lung sounds Cardio Jugular venous distension: no JVD Rate: regular rate and tachycardic Rhythm: regular rhythm Heart sounds: S1 normal heart sound present, S2 normal heart sound present and Murmur heart sound present systolic early, decrescendo and crescendo Skin General skin exam: no rashes or lesions noted Neuro General: patient oriented x3 and no focal motor deficits Extrem General: Yes no clubbing, cyanosis or edema Office Procedures EKG Details: EKG shows normal sinus rhythm with left axis deviation with low-voltage QRS with inferior Q-wave pattern 64124-Itihvxcschoioquaq, Complete Assessment & Plan Assessment & Plan (1) Chest pain: Code(s): R07.9 - Chest pain, unspecified Category: Medical Plan: Patient with continued episodes of chest pressure which is concerning him. Patient has been added for vascular disease and multiple risk factors including COPD. Likelihood of coronary disease is high. He is dobutamine myocardial perfusion imaging was within normal limits although this is suboptimal heart rate. Has been scheduled for coronary CTA although this is pending. Will try to make it on urgent basis. Meanwhile will treat him like an angina. Will give him sublingual nitroglycerin as well as long-acting nitrates isosorbide mononitrate 30 mg daily. Control his heart rate better. I am going to discontinue his verapamil and switch him to diltiazem 240 mg b.i.d. and also advised him to take Corlanor twice a day. Continue aggressive risk factor modification, see below. (2) Aortic stenosis: Code(s): I35.0 - Nonrheumatic aortic (valve) stenosis Category: Medical Plan: Aortic stenosis which is moderate by echocardiogram clinically does not appear to have progressed. Follow-up echocardiogram near future. I do not think this is responsible for his symptoms at rest. Continue aspirin. Continue high-intensity statin therapy with ezetimibe therapy with target goal LDL less than 70 mg/dL. Continue aggressive diabetes management goal hemoglobin A1c less than 7%. Blood pressure is well optimized. Consider GLP 1 antagonist to also help him with diabetes management as well as weight loss. (3) Inappropriate sinus tachycardia: Code(s): R00.0 - Tachycardia, unspecified Category: Medical Plan: Inappropriate sinus tachycardia related to significantly reduce pulmonary capacity. Continue with Corlanor and Cardizem therapy. Avoidance of stimulants was discussed. Advised to maintain adequate hydration. Will follow up in the clinic in 3 months time, sooner p.r.n.. Thank you for allowing me to partake in his care Medications: New isosorbide mononitrate ER 30 mg PO DAILY 30 tabs 5RF nitroglycerin do not exceed 3 doses per episode 0.4 mg sublingual Q5M PRN 20 tabs 3RF chest pain Changed From diltiazem HCl CD 240 mg PO DAILY To diltiazem HCl CD 240 mg PO BID From ivabradine (Corlanor) must administer with a meal/food 5 mg PO DAILY 90 days 90 tabs 3RF To ivabradine (Corlanor) must administer with a meal/food 5 mg PO BID 180 tabs 3RF 90 days Discontinued verapamil ER Dose was increased Discontinued Reason: Doctor's Order 240 mg PO DAILY 90 caps 3RF Coding Level of Care Code Est Pt Level 4 (56432) Complex EM visit Add On G2211 Diagnoses Chest pain R07.9 Aortic stenosis I35.0 Inappropriate sinus tachycardia R00.0 CPT Codes EKG - CPT: 66447-Popujhlodnnnflqwq, Complete ([id number])
== END 2024-10-13 09:01 | disposition home or self-care (01) ==
LOC: HO.HCS 08:11
PROVIDERS: PCP Nurse Practitioner Family; Visit Provider Internal Medicine Cardiovascular Disease
DX: R07.9 Chest pain, unspecified (principal); I35.0 Nonrheumatic aortic (valve) stenosis; R00.0 Tachycardia, unspecified
CPT/HCPCS: 93010; 99214; G2211

== ENCOUNTER → 2024-10-13 08:08 | Outpatient (BNVA) | payer MEDICARE, SELFPAY | PROVIDERS: PCP Nurse Practitioner Family; Visit Provider Internal Medicine Cardiovascular Disease | DX: I35.0 Nonrheumatic aortic (valve) stenosis (principal); R07.89 Other chest pain; R00.0 Tachycardia, unspecified | CPT/HCPCS: 93005; 99212 ==

== ENCOUNTER 2024-11-15 09:03 | Outpatient (REF) | payer MEDICARE, SELFPAY ==
--- OUTSIDE RECORDS SUMMARY | 2024-05-03 07:00 | XMS_ITS ---
Author Organization [facility] marguerite [place] Address [address] [place] [address] Care Team Providers Care Outreach Consultant Name Role Phone Geovani Sears Primary Care Provider Unav ailable Crow Morris Unavailable [phone] Encounters Encounter Location Date Provider Diagnosis [address] [address] 05/03/2024 Crow Morris Plan Of Treatment Next Appt Details Provider Name:Crow Morris , 11/18/2024 09:00:00 AM, [address] [place] [address], [address], Progress Notes * Cody REBOLLAR WDOB: 3 (74 yo M)Acc No.[id number]:05/03/2024 Progress Note Patient: Cody LIRA Provider: Luzmaria Morris DPM :1950 A ge:74 Y S ex:Male Date:05/03/2024 Address:[address] [place] [address] jorge alberto [id number] Pcp:LOU Sun Subjective: * Chief Complaints: * [...] DPM Date: 0 05/03/2024 Generated for Kirill kaplan/Lily/Yousif on: 0 11/15/2024 11:16 AM EDT
--- OUTSIDE RECORDS SUMMARY | 2024-11-15 11:16 | XMS_ITS | Patient Health Record ---
Author Organization [facility] Address [address] [place] [address] Care Team Providers Care Dental Billing Specialist Name Role Phone PAOLO SAMAYOA Primary Care Provider Raji Salas Unavailable [phone] Allergies Allergen (clinical drug ingredient) Drug/Non Drug Allergy documented on EMR Reaction Allergy Type Onset Date Status Aloe Aftersun Unknown Drug Allergy Act alejandro Results Component Value Reference Range Notes Complete Blood Count Auto Di ff Reviewed date:05/05/2024 10:11:31 AM Interpretation: Performing Lab:[facility], [address] [place] [phone] Notes/Report: White Blood Count 10.5 4.8-10.8 X10*3/uL [...] ff Reviewed date:05/05/2024 10:10:45 AM Interpretation: Performing Lab:[facility], [address] [place] [phone] Notes/Report: White Blood Count 8.9 4.8-10.8 X10*3/uL [...] Pathology Reviewed date:05/09/2024 06:04:55 PM Interpretation: Performing Lab:[facility], [address] [place] [phone] Notes/Report: CT angio abdomen Reviewed date:05/05/2024 10:11:09 AM Interpretation: Performing Lab: Notes/Report: [address] [address] [address] Scan Report Signed with Addenda Patient: Irene Rebollar MR#: [id number] 63 : 1950 Acct:[id number] Age/Sex: 74 / M ADM Date: 05/03/24 Loc: [facility] [id number]: Cristiano Serrano MD Ordering Physician: Raji Tellez MD Date of Service: 05/04/24 Procedure(s): CT angio abdomen Accession Number(s): [id number] cc: Paolo Samayoa [facility]-; Raji Tellez MD Report Number: [id number]: Total DLP = 2273.00 mGy-cm ADDENDUM This [...] in OV> 05/04/241845 DD/ 43 TD/TT: 05/04/241843 Casting Machine Operator: Complete Blood Count Auto Di ff Reviewed date:05/05/2024 05:48:11 PM Interpretation: Performing Lab:[facility], [address] [place] [phone] Notes/Report: White Blood Count 8.3 4.8-10.8 X10*3/uL [...] Gel Reviewed date:05/05/2024 06:02:20 PM Interpretation: Performing Lab:[facility], [address] [place] [phone] Notes/Report: Hold Green Gel See Note Specimen held untested for 24 hours; Call to request Chemistry testing. Reason For Referral No Information Medications Medication SIG (Take, Route, Frequency, Duration) Notes Start Date End Date Status Lasix 40 MG 1 tablet Orally Once a day for 30 day(s) Active Vitamin D (Ergocalciferol) 75940 UNIT as directed Oral twice a week [...] Problem Status W/U Status Risk Notes Problem 845667922 Encounter for screening for malignant neoplasm of colon (Z12.11) Active confirmed Problem 768731759 History of adenomatous polyp of colon (Z86.010) Active confirmed Problem 15194019 Iron deficiency (E61.1) Active confirmed Problem Diverticular disease of colon (484829765) Diverticulosis of large intestine without hemorrhage (K57.30) Active confirmed Problem 626371651969659 Preprocedural examination (Z01.818) Active confirmed Problem 279995625 Gastroesophageal reflux disease, esophagitis presence not specified [...] Date MEDICARE OF [place] [address] [place] [address] [phone] [id number] IRENE REBOLLAR Self - patient is the insured [employer] ATTN CLAIMS [address] [place] [address] [id number] IRENE REBOLLAR Self - patient is the insured Medical (General) History Medical History History ICD Code Denies HI,CVA,renal disease NIDDM COPD Colonoscopy in 2006 with mul tiple tubular adenoms removed, 1 with moderate dysplasia GERD--UGI in 2016 with a hiatal hernia Neuropathy in arms and legs HTN Edema Surgical History Surgery Date(Month/Year) Right inguinal hernia repair x 2 Heel spur
--- OUTSIDE RECORDS SUMMARY | 2024-11-15 11:16 | XMS_ITS | Clinical Summary ---
Author Organization [facility] Address [address] [place] [address] [place] [phone] Phone Care Team Providers Care Lawn And Garden Technician Name Role Phone Geovani Samayoa SAP FICO BUSINESS ANALYST Primary Care Provider + Allergies No known active allergies Medications dilTIAZem (CARDIZEM CD) 120 MG 24 hr capsule Take 240 mg by mouth daily. Active meloxicam (MOBIC) 15 MG tablet meloxicam 15 mg tablet Active tiotropium-ol odateroL 2.5-2.5 mcg/actuation Mist Stiolto Respimat 2.5 mcg-2.5 mcg/actuation solution for inhalation INHALE 2 PUFFS BY MOUTH EVERY DAY Active omeprazole (PRILOSEC) 40 MG capsule omeprazole 40 mg capsule,delayed release Active metFORMIN (GLUCOPHAGE) 500 MG tablet Take 500 mg by mouth 2 (two) times a day with meals. Active LORazepam (ATIVAN) 1 MG tablet lorazepam 1 mg tablet Active lisinopril (PRINIVIL,ZES TRIL) 5 MG tablet lisinopril 5 mg tablet Active ketoconazole (NIZORAL) 2 % shampoo ketoconazole 2 % shampoo Active guaiFENesin (MUCINEX) 600 mg ER biphasic tablet every other day. Act alejandro furosemide (LASIX) 40 MG tablet Active ergocalcifero l (DRISDOL) 50,000 unit capsule ergocalciferol (vitamin D2) 1,250 mcg (50,000 unit) capsule TAKE ONE CAPSULE BY MOUTH ONE TIME PER WEEK Active DULoxetine (CYMBALTA) 20 MG capsule duloxetine 20 mg capsule,delayed release Active pravastatin (PRAVACHOL) 80 MG tablet Take 80 mg by mouth daily. Active ferrous sulfate 325 mg (65 mg bois forte iron) tablet Take 325 mg by mouth daily with breakfast. Active cholecalcifer ol (VITAMIN D3) 5,000 unit tablet Take 1,000 Units by mouth daily. Every other day Active aspirin 81 mg chewable tablet Take 81 mg by mouth daily. Active rosuvastatin (CRESTOR) 40 MG tablet Take 40 mg by mouth daily. Active tiotropium bromide (SPIRIVA RESPIMAT) 2.5 mcg/actuation mist for inhalation Inhale 2 puffs into the lungs daily. 3 each 3 09/06/19 21 Active Additional Information Patient not taking.Reported on 09/27/2024 ivabradine (CORLANOR) 5 mg tablet Take by mouth 2 (two) times a day. Active calcipotriene (CALCITRENE) 0.005 % ointment 05/13/19 23 Active fluocinonide 0.05 % ointment APPLY TO AFFECTED AREA ON LEGS TWICE A DAY NEEDED FOR FLARES 05/13/19 23 Active betamethasone , augmented, (DIPROLENE AF) 0.05 % cream APPLY TO ITCHY AREAS ON LEGS AND ARMS TWICE A DAY NEEDED FOR FLARES, DECREASE SYMPTOMS IMPROVE 01/14/20 23 Active tacrolimus (PROTOPIC) 0.1 % ointment 03/23/19 24 Active amoxicillin-c lavulanate (AUGMENTIN) 875-125 mg per tablet 07/15/19 24 Active JARDIANCE 10 mg tablet Half tab daily 09/09/19 24 Active finasteride (PROSCAR) 5 mg tablet 06/25/19 24 Active tamsulosin (FLOMAX) 0.4 mg Cap 07/10/19 24 Active ipratropium-a lbuteroL (COMBIVENT RESPIMAT) 20-100 mcg/actuation MistIndicatio ns:Medication refill Inhale 1 puff into the lungs as needed. 12 g 3 09/29/19 24 Active ipratropium-a lbuteroL (COMBIVENT RESPIMAT) 20-100 mcg/actuation MistIndicatio ns:Medication refill Inhale 1 puff into the lungs every 6 (six) hours as needed. 12 g 3 10/21/19 24 Active ezetimibe (ZETIA) 10 mg tablet Take 1 tablet by mouth every morning. 08/25/19 25 Active verapamiL (VERELAN) 240 MG 24 hr capsule Oral for 90 Active b complex vitamins capsule as directed Orally Active fluticasone-u meclidin-citlaly nter (TRELEGY ELLIPTA) 100-62.5-25 mcg inhalation powder USE 1 INHALATION BY MOUTH DAILY 3 each 3 10/26/19 25 Active fluticasone-u meclidin-citlaly nter (TRELEGY ELLIPTA) 100-62.5-25 mcg inhalation powder Inhale 1 puff into the lungs daily. 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 COPD type B 09/15/2019 Encounters Date Type Department Care Team Description 10/22/2024 Refill [facility] [address], [address] [place] [address] MD Medication Refill 09/27/2024 10:30 AM EDT Office Visit [facility] [place] [address], [address] [place] [address] MD Panlobular emphysema (Primary Dx); Multiple pulmonary nodules from Last 3 Months Immunizations Immunization Administration Dates Next Due COVID-19 (Pre-12/22) Pfizer Vaccine, mRNA, PF Influenza High-Dose Trivalent Preservative Free IM 11/24/2018,12/31/2017 Influenza Quadrivalent Preservative Free IM 12/0 03/2019 Pneumococcal conjugate PCV13 03/30/2017 Family History Medical History Relation Comments Heart failure Maternal Grandmother Heart failure Paternal Grandfather Relation Status Comments Maternal Grandmother Paternal Grandfather Social History Tobacco Use Types Packs/Day Years Used Date Smoking Tobacco: Former Smokeless Tobacco: Never Tobacco Cessation:Counseling Given: Not Answered Education Answer Date Recorded Are you interested in more education? Not on rogerio e 06/27/2022 Are you concerned about learning? Not on file 06/27/2022 No 06/27/2022 No 06/27/2022 Digital Access Answer Date Recorded No 07/28/2022 No 07/28/2022 Reliable internet access at home? Not on file 07/28/2022 Device with a working camera? Not on file Sex and Gender Information Value Date Recorded Sex Assigned at Male 02/01/2024 10:32 AM EST Legal Sex Male 9:59 PM EDT Gender Identity Male 02/01/2024 10:32 AM EST Sexual Orientation Straight 02/01/2024 10 :32 AM EST Last Filed Vital Signs Vital Sign Reading Time Taken Comments Blood Pressure 138/62 09/27/2024 10:24 AM EDT Pulse 102 09/27/2024 10:24 AM EDT Temperature - - Respiratory Rate - - Oxygen Saturation 97% 09/27/2024 10:24 AM EDT Inhaled Oxygen Concentration - - Weight 115.2 kg (254 lb) 09/27/2024 10:24 AM EDT Height 182.9 cm (6') 09/27/2024 10:24 AM EDT Body Mass Index 34.45 09/27/2024 10:24 AM EDT Plan of Treatment Upcoming Encounters Date Type Department Care Team (Late st Contact Info) Description 04/03/2025 10:40 AM EST Office Visit [facility] [address] [place] [address] [address] Floor, [address] [place] [address] Raji Thurman MD, MS [address] [facility], [address] [place] [address] [email or web address] Health Maintenance Due Date Last Done Comments Adult Td,Tdap Booster 1950 CREATININE LEVEL 1952 LIPID PANEL 1952 POTASSIUM LEVEL 1952 DEPRESSION SCREENING 1964 SMOKING Hx and SMOKELESS TOBACCO SCREENING 1965 HEPATITIS C SCREENING 1970 COLOGUARD 1997 COLONOSCOPY 1997 COLORECTAL CANCER SCREENING 1997 FIT TEST 1997 FOBT 1997 SIGMOIDOSCOPY 1997 VIRTUAL COLONOSCOPY 1997 ZOSTER VACCINES (1 of 2) 2002 RSV VACCINE (1 - Risk 60-74 years 1-dose series) 2012 ABDOMINAL AORTIC ANEURYSM (AAA) SCREENING 2017 PNEUMOCOCCAL VACCINES (50+ years) (2 of 2 - PPSV23) 05/25/2017 03/30/2017 INFLUENZA VACCINE (#1) 2024 , 11/24/2018, 12/31/2017 COVID-19 VACCINE (2 - 2024-2 6 season) 2024 05/17/2020 HEPATITIS A VACCINES Aged Out No long er eligible based on patient's age to complete this topic HIB VACCINES Aged Out No longer eligi ble based on patient's age to complete this topic MENINGOCOCCAL VACCINES (ACWY) Aged Out No longer eligible based on patient's age to complete this topic MENINGOCOCCAL VACCINES (B) Aged Out N o longer eligible based on patient's age to complete this topic Medical Devices Not on file Insurance MEDICARE PART A & B [facility] MEDEX SUPPLEMENT MEDICARE PART A & B [employer] MEDEX SUPPLEMENT MEDICARE PART A & B [employer] MEDEX SUPPLEMENT MEDICARE PART A & B [employer] MEDEX SUPPLEMENT MEDICARE PART A & B [employer] MEDEX SUPPLEMENT MEDICARE PART A & B [employer] MEDEX SUPPLEMENT MEDICARE PART A & B [employer] MEDEX SUPPLEMENT MEDICARE PART A & B [employer] MEDEX SUPPLEMENT MEDICARE PART A & B [employer] MEDEX SUPPLEMENT Care Teams Lawn And Garden Technician Relationship Specialty Start Date End Date Geovani Samayoa NP [address] [address] PCP - General Family Medicine 01/09/22 Additional Source Comments The information contained in this document represents components of the legal health record. It is not the complete legal health record.[facility]
--- OUTSIDE RECORDS SUMMARY | 2024-11-15 11:16 | XMS_ITS | Encounter Summary ---
Author Organization [facility] Address [address] [place] [address] Phone Care Team Providers Care Mri Supervisor Name Role Phone Geovani Samayoa HOOP FLARING MACHINE OPERATOR Primary Care Provider + Encounter Details Date Type Department Care Team (Late st Contact Info) Description 02/16/2024 Procedure [facility], Ct Scan - [address] [address] Social History Tobacco Use Types Packs/Day Years Used Date Smoking Tobacco: Former Smokeless Tobacco: Never Education Answer Date Recorded Are you interested [...] Orientation Straight 02/01/2024 10 :32 AM EST documented as of this encounter Plan of Treatment Upcoming Encounters Date Type Department Care Team (Late st Contact Info) Description 04/03/2025 10:40 AM EST Office Visit [facility] [address] [facility] [address] Floor, [address] [place] [address] Raji Thurman MD, MS [address] [facility], [address] [place] [address] [email or web address] documented as of this encounter Visit Diagnoses Not on filedocumented in this encounter Care Teams Mri Supervisor Relationship Specialty Start Date End Date Geovani Samayoa NP [address] [place] [address] PCP - General Family Medicine 01/09/22 documented as of this encounter Additional Source Comments The information contained in this document represents components of the legal health record. It is not the complete legal health record.[facility]
--- OUTSIDE RECORDS SUMMARY | 2024-11-15 11:16 | XMS_ITS | Encounter Summary ---
Author Organization [facility] Address [address] [place] [address] [address] [place] [address] Phone Care Team Providers Care Senior Software Project Manager Name Role Phone Geovani Samayoa CUSTOMER SUCCESS DIRECTOR Primary Care Provider + Encounter Details Date Type Department Care Team (Latest Contact Info) Description 02/05/2023 Ancillary Orders [facility] [address] [place] [address] 3rd Floor, [address] [place] [address] MD 22 [facility] [address] [place] [address] [email or web address] Dyspnea, unspecified type (Primary Dx) Social History Tobacco Use Types Packs/Day Years [...] Description 04/03/2025 10:40 AM EST Office Visit [facility] [address]rd Floor, [address] [place] [address] Raji Thurman MD, MS [address] [facility] [address] [place] [address] [email or web address] documented as of this encounter Results * Pulmonary Function Test Reason for Exam: COPD; Type of PFT Test: Spirometry with bronchodilator, Lung Volumes, DLCO (02/10/2023 10:14 AM EST) FEV1 FVC FEV1/FVC TLC DLCO Anatomical Region Laterality Modality Other Narrative 02/10/2023 10:14 AM EST Spirometry: In the prebronchodilator study DDF VC is minimally reduced at 67% predicted, the FEV1 is severely reduced at 36% predicted, the FEV1 percent is severely reduced at 41%, the FEF 25/75 is severely reduced at 31% predicted. In the postbronchodilator study there is a 16% improvement in FVC, 18% improvement in FEV1 and 32% improvement in FEF 25/75. The flow-volume loop demonstrated a normal inspiratory limb. Lung volumes: TLC is normal. RV is minimally increased at 109% predicted, RV/TLC is increased at 46% Diffusing capacity: The DLCO is minimally reduced at 70% predicted. Oxygenation: The SaO2 is normal at 94% Impression: Severe obstructive physiology with a good bronchodilator response. A minimal degree of air trapping is noted. 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 A notable degree of bronchial reactivity is seen. A 6-minute walk test was done on room air with a baseline SaO2 of 96%. The distance covered in 6 minutes was severely reduced from expected at 183 m. Exercise was limited due to shortness of breath and leg fatigue. The SaO2 sagged to 91% but promptly rebounded within 1 minute of recovery. Bk [address] MD PFT ORDERABLES Final Result documented in this encounter Visit Diagnoses Diagnosis Dyspnea, unspecified type- Primary Dyspnea, unspecified type documented in this encounter Care Teams Senior Software Project Manager Relationship Specialty Start Date End Date Geovani Samayoa NP [facility] [place] [address] PCP - General Family Medicine 01/09/22 documented as of this encounter Additional Source Comments The information contained in this document represents components of the legal health record. It is not the complete legal health record.[facility]
--- OUTSIDE RECORDS SUMMARY | 2024-11-15 11:16 | XMS_ITS | Encounter Summary ---
Author Organization [facility] Address [address] [place] [address] Phone Care Team Providers Care Wax Pattern Repairer Name Role Phone Geovani Samayoa EMPLOYEE BENEFITS INSURANCE AGENT Primary Care Provider + Encounter Details Date Type Department Care Team (Late st Contact Info) Description 02/09/2023 Transcribe Orders [facility] [address] [place] [address] MD 22 [facility], [address] [place] [address] [email or web address] Social History Tobacco Use Types Packs/Day Years [...] Description 04/03/2025 10:40 AM EST Office Visit [facility] [address] Floor, [address] [place] [address] Raji Thurman MD, MS 22 [facility], [address] [place] [address] [email or web address] documented as of this encounter Visit Diagnoses Not on filedocumented in this encounter Care Teams Wax Pattern Repairer Relationship Specialty Start Date End Date Geovani Samayoa NP [facility] [place] [address] PCP - General Family Medicine 01/09/22 documented as of this encounter Additional Source Comments The information contained in this document represents components of the legal health record. It is not the complete legal health record.[facility]
--- OUTSIDE RECORDS SUMMARY | 2024-11-15 11:17 | XMS_ITS | Patient Health Record ---
Author Organization [facility] Address [address] [place] [address] Care Team Providers Care Crucible Packer Name Role Phone Geovani Sears Primary Care Provider Unav ailable Crow Morris Unavailable [phone] Allergies No Known Allergies Results Component Value [...] Problem Acquired hammer toe of right foot (7269923235753472 ) Other hammer toe(s) (acquired), right foot (M20.41) Active confirmed Response to treatment, Improvemen t Problem Acquired hammer toe of left foot (5329704261330421 ) Other hammer toe(s) (acquired), left foot (M20.42) Active confirmed Response to treatment, Improvemen t Problem Polyneuropathy due to type 2 diabetes mellitus (447000923) Type 2 diabetes mellitus with diabetic polyneuropathy (E11.42) Active confirmed Vital Signs Blood pressure diastolic 65 mm Hg 08/16/2024 Height 6 ft in 08/16/2024 Blood pressure systolic 128 mm Hg 08/16/2024 Weight 245 lbs 08/16/2024 BMI 33.22 kg/m2 08/16/2024 Procedures Procedure Date Ordered Date Performed Result Body Sit e 26258-XDZTKZH NAIL, 6 OR MORE 02/02/2024 N/A 87575-SSLC SKIN LESIONS, 2 TO 4 02/02/2024 N/A 03257-NFILIAF NAIL, 6 OR MORE 05/13/2024 N/A 22244-EVTE SKIN LESIONS, 2 TO 4 05/13/2024 N/A 07038- Removal of Foreign Body, Subcut 05/13/2024 N/A 68888-DHQTALR NAIL, 6 OR MORE 08/16/2024 N/A 53185-RIXJ SKIN LESIONS, 2 TO 4 08/16/2024 N/A Encounters Encounter Location Date Provider Diagnosis [address] [address] 02/02/2024 Crow Morris Type 2 diabetes mellitus with diabetic polyneuropathy E11.42 and Tinea unguium B35.[address] [address] 05/13/2024 Crow Morris Type 2 diabetes mellitus with diabetic polyneuropathy E11.42 ; Tinea unguium B35.1 ; Other hammer toe(s) (acquired), right foot M20.41 ; Other hammer toe(s) (acquired), left foot M20.42 and Puncture wound with foreign body, right foot, initial encounter S91.341A [address] [address] 08/16/2024 Crow Morris Type 2 diabetes mellitus with diabetic polyneuropathy E11.42 and Tinea unguium B35.[address] [address] 05/03/2024 Crow Morris Assessments Encounter Date Diagnosis [...] right foot, initial encounter (ICD-10 - S91.341A) 02/02/2024 Other 05/13/2024 Other 08/16/2024 Other Plan Of Treatment Pending Test Test Name Order Date 90859-XJBETGH NAIL, 6 OR MORE 11/03/2023 90513-OEPQLUT NAIL, 6 OR MORE 02/02/2024 93236-PQGSVZQ NAIL, 6 OR MORE 05/13/2024 36983-WXANBCD NAIL, 6 OR MORE 08/16/2024 02921-Lmuyoozx Plate 11/03/2023 13037- Debride <25 sq cm 07/23/2018 12979 I&D ABSCESS- SIMPLE,SINGLE 019 39929-AOWZ SKIN LESIONS, 2 TO 4 11/03/19 24 31442-JDQK SKIN LESIONS, 2 TO 4 05/14/19 25 79414-DFXP SKIN LESIONS, 2 TO 4 02/02/20 24 49330-DYVK SKIN LESIONS, 2 TO 4 08/17/19 25 95725- Removal of Foreign Body, Subcut 0 05/13/2024 Next Appt Details Provider Name:Crow Morris , 11/18/2024 09:00:00 AM, [address] [facility], [place], [address], Insurance Providers Payer Name Payer Address Payer Phone Subscriber Number Group Number Insured Name Patient Relationship to Insured Coverage Start Date Coverage End Date Medicare National [employer] [address] [place] [address] [id number] Cody Rebollar Self - patient is the insured 7 [facility] [address] [place] [address] [phone] [id number] Cody Rebollar Self - patient is the [...] Repair 2000 Hospitalization History Reason Date(Month/Year) [facility]- Throwing up blood 04/2023
--- OUTSIDE RECORDS SUMMARY | 2024-11-15 11:17 | XMS_ITS | Encounter Summary ---
Author Organization [facility] Address [address] [facility] [address] [place] [address] Phone Care Team Providers Care Rod Buster Name Role Phone Geovani Samayoa NEEDLE BOARD REPAIRER Primary Care Provider + Encounter Details Date Type Department Care Team (Late st Contact Info) Description 02/04/2023 Procedure Pass [facility], Ct Scan - [address] [address] Social History Tobacco Use Types Packs/Day Years [...] Description 04/03/2025 10:40 AM EST Office Visit [facility] [address] [facility] 3rd Floor, [address] [place] [address] Raji Thurman MD, MS 22 [facility], [address] [place] [address] [email or web address] documented as of this encounter Visit Diagnoses Not on filedocumented in this encounter Care Teams Rod Buster Relationship Specialty Start Date End Date Geovani Samayoa NP [address] [place] [address] PCP - General Family Medicine 01/09/22 documented as of this encounter Additional Source Comments The information contained in this document represents components of the legal health record. It is not the complete legal health record.[facility]
--- OUTSIDE RECORDS SUMMARY | 2024-11-15 11:17 | XMS_ITS | Encounter Summary ---
Author Organization [facility] Address [address] [place] [address] Phone Care Team Providers Care Remote Sensing Analyst Name Role Phone Bk St MD Primary Care Provider Unknown, Unknown Primary Care Provider Geovani Sorenson ONLINE COMMUNICATIONS MANAGER Primary Care Provider + Encounter Details Date Type Department Care Team (Late st Contact Info) Description 07/10/2017 Ancillary Orders Virtual Department [address] [place] [address] MD 22 [facility], [address] [address] [email or web address] Atelectasis Social History Tobacco Use Types Packs/Day Years Used Date Smoking Tobacco: Never Assessed Sex and Gender Information Value Date Recorded Sex Assigned at Male 02/01/2024 10:32 AM EST Legal Sex Male 9:59 PM EDT Gender Identity Male 02/01/2024 10:32 AM EST Sexual Orientation Straight 02/01/2024 10 :32 AM EST documented as of this encounter Plan of Treatment Upcoming Encounters Date Type Department Care Team (Late st Contact Info) Description 04/03/2025 10:40 AM EST Office Visit [facility] [address] [place] [address] 3rd Floor, [address] [place] [address] Raji Thurman MD, MS 22 [facility], [address] [address] [email or web address] documented as of this encounter Results * CT CHEST WITHOUT CONTRAST (07/24/2017 8:15 AM EDT) Anatomical Region Laterality Modality Chest Computed Tomogra phy 07/24/2017 8:32 AM EDT Impressions 07/24/2017 8:40 AM EDT Stable emphysema with minimal progression of lingular scarring versus subsegmental atelectasis since 08/03/2014. No acute infiltrate, segmental atelectasis, or other significant interval change apparent on this non-contrast study. TOTAL CTDIvol: 13.50 mGy POS - [id number] Narrative 07/24/2017 8:40 AM EDT COMPARISON: 08/03/2014 CT TECHNIQUE: CT chest without IV contrast. Multiplanar reformatted images generated. Automated exposure control utilized. FINDINGS: Mild to moderate centrilobular emphysematous changes appear overall stable. There is chronic scarring in the lingula and at the base of the left lower lobe with minimal interval thickening of the scars in the lingula which may represent minimal superimposed atelectatic change and with only slight thickening of the lower lobe scars which does not appear to represent atelectasis. Minimal chronic linear scarring at the right base is unchanged. No acute airspace infiltrate or pleural effusion demonstrated. No tamanna bronchiectasis or endotracheal or endobronchial nodules identified. No overt mucous plugging. Incidental note is made of a chronic azygos lobe. There is limited evaluation of the pulmonary ciera due to the lack of intravenous contrast but no gross hilar enlargement or superior mediastinal lymphadenopathy demonstrated. No pericardial effusion. Aorta is stable in appearance with chronic aortic valve calcification again seen. No supraclavicular mass or axillary lymphadenopathy demonstrated. There are chronic and grossly stable thoracic vertebral body compression deformities without acute traumatic or destructive skeletal lesions apparent. Adrenal glands are not enlarged. Spleen and visualized portions of the liver are within normal limits for the non-contrast state. A small hiatal hernia is again noted. Procedure Note Roslyn Alexandre MD - 07/24/2017 COMPARISON: 08/03/2014 CT TECHNIQUE: CT chest without IV contrast. Multiplanar reformatted imagesgenerated. Automated exposure control utilized. FINDINGS: Mild to moderate centrilobular emphysematous changes appear overallstable. There is chronic scarring in the lingula and at the base of theleft lower lobe with minimal interval thickening of the scars in thelingula which may represent minimal superimposed atelectatic change andwith only slight thickening of the lower lobe scars which does not appearto represent atelectasis. Minimal chronic linear scarring at the rightbase is unchanged. No acute airspace infiltrate or pleural effusiondemonstrated. No tamanna bronchiectasis or endotracheal or endobronchialnodules identified. No overt mucous plugging. Incidental note is made ofa chronic azygos lobe. There is limited evaluation of the pulmonary ciera due to the lack ofintravenous contrast but no gross hilar enlargement or superiormediastinal lymphadenopathy demonstrated. No pericardial effusion. Aortais stable in appearance with chronic aortic valve calcification againseen. No supraclavicular mass or axillary lymphadenopathy demonstrated. Thereare chronic and grossly stable thoracic vertebral body compressiondeformities without acute traumatic or destructive skeletal lesionsapparent. Adrenal glands are not enlarged. Spleen and visualized portions of theliver are within normal limits for the non-contrast state. A small hiatalhernia is again noted. IMPRESSION: Stable emphysema with minimal progression of lingular scarring versussubsegmental atelectasis since 08/03/2014. No acute infiltrate, segmentalatelectasis, or other significant interval change apparent on thisnon-contrast study. TOTAL CTDIvol: 13.50 mGy POS - [id number] Bk St MD IMG CT CHEST Final Result documented in this encounter Visit Diagnoses Diagnosis Atelectasis Pulmonary collapse Atelectasis Pulmonary collapse documented in this encounter Care Teams Remote Sensing Analyst Relationship Specialty Start Date End Date Bk St MD [address] [place] [address], [address] [place] [address] [email or web address] PCP - General Pulmonary Disease 07/13/17 01/07/21 Unknown, Unknown, PCP - General 01/08/21 01/08/22 Geovani Samayoa NP [address] [place] [address] [place] [address] PCP - General Family Medicine 01/09/22 documented as of this encounter Additional Source Comments The information contained in this document represents components of the legal health record. It is not the complete legal health record.[facility]
--- OUTSIDE RECORDS SUMMARY | 2024-11-15 11:17 | XMS_ITS | Encounter Summary ---
Author Organization [facility] Address [address] [place] [address] Phone Care Team Providers Care Tour Driver Name Role Phone Bk St MD Primary Care Provider [phone] Unknown, Unknown Primary Care Provider Geovani Sorenson JEEP MECHANIC Primary Care Provider + Encounter Details Date Type Department Care Team (Late st Contact Info) Description 07/10/2017 Procedure Pass [facility], Ct Scan - [address] [address] Social History Tobacco Use Types Packs/Day Years [...] Description 04/03/2025 10:40 AM EST Office Visit [facility] [address] [facility] 3rd Floor, [address] [place], [place] [address] Raji Thurman MD, MS 22 [facility], [address] [place] [address] [email or web address] documented as of this encounter Visit Diagnoses Not on filedocumented in this encounter Care Teams Tour Driver Relationship Specialty Start Date End Date Bk St MD [facility], [address] [place] [address] [email or web address] PCP - General Pulmonary Disease 07/13/17 01/07/21 Unknown, Unknown, PCP - General 01/08/21 01/08/22 Geovani Samayoa NP [address] [place] [address] [place] [address] PCP - General Family Medicine 01/09/22 documented as of this encounter Additional Source Comments The information contained in this document represents components of the legal health record. It is not the complete legal health record.[facility]
[2024-11-15 12:11] LABS: Anion Gap 14 (12-20); Blood Urea Nitrogen 18 mg/dL (9-16); Calcium 9.0 mg/dL (8.4-10.2); Carbon Dioxide 22 mmol/L (22-29); Chloride 108 mmol/L (96-108); Estimated Glomerular Filt Rate > 60; Potassium 4.0 mmol/L (3.3-5.1); Sodium 140 mmol/L (135-145)
== END 2024-11-15 09:04 | disposition home or self-care (01) ==
LOC: HO.HMGCLDS 09:03
PROVIDERS: PCP Nurse Practitioner Family; Visit Provider Internal Medicine Cardiovascular Disease
DX: I35.0 Nonrheumatic aortic (valve) stenosis (principal); R07.9 Chest pain, unspecified
CPT/HCPCS: 36415; 80048

== ENCOUNTER → 2024-11-23 07:50 | Outpatient (REF) | payer MEDICARE, SELFPAY ==
--- OUTSIDE RECORDS SUMMARY | 2023-10-04 04:50 | XMS_ITS | Continuity of Care Document ---
Author Organization [facility] [place] Address [address] [place] [address] Phone Care Team Providers Care Corncob Pipe Manufacturing Supervisor Name Role Phone Unavailable Unavailable Unavailable Allergies, [...] times every day 5 MG - Active Trelegy Ellipta 100 mcg-62.5 mcg-25 mcg powder for inhalation - Active verapamil ER 180 mg 24 hr capsule,extended release - Active Jardiance 10 mg tablet - Active meloxicam 15 mg tablet - Active metformin 1,000 mg tablet - Active omeprazole 40 mg capsule,delayed release - Active tamsulosin 0.4 mg capsule - [...] Sever Services provided in an urgent care [facility] Advance Directives Directive Yes / No Effective Date File Name No Information Encounters Encounter Description Practice Location Reason(s) For Visit Diagnoses Date Provider Providers Copied on Encounter Offic/outpt E&m New Salo Sever [facility] [place], [address], [place], [place], [id number], tel:[phone] [facility] Rash (chief complaint) Cellulitis of right toe No Information [facility] [place], [address], [place], [place], [id number], tel:[phone] [facility] No Information No Information Family History Family Member Type Diagnosis Age At Onset No Information Payers Payer name Insurance type Covered libertarian ID Helena valente(s) Medicare B [facility] [id number] [facility] [id number] Social History Type Description Quantity Date Captured [...] Mental Status Date Cognitive Assessment Orientation - [place] ed to time, place, person, situation. Patient Care Teams Name Effective Dates (start - stop) Status Members No Information
--- OUTSIDE RECORDS SUMMARY | 2024-05-03 07:00 | XMS_ITS ---
Author Organization [facility] marguerite [place] Address [address] [place] [address] Care Team Providers Care Third Hand Name Role Phone Geovani Sears Primary Care Provider Unav ailable Crow Morris Unavailable [phone] Encounters Encounter Location Date Provider Diagnosis [address] [address] 05/03/2024 Crow Morris Plan Of Treatment Next Appt Details Provider Name:Crow Morris , 03/10/2025 01:45:00 PM, [address] [place] [address], [address], Progress Notes * Cody REBOLLAR WDOB: 3 (74 yo M)Acc No.[id number]:05/03/2024 Progress Note Patient: Cody LIRA Provider: Luzmaria Morris DPM :1950 A ge:74 Y S ex:Male Date:05/03/2024 Address:[address] [place] [address] jorge alberto [id number] Pcp:LOU Sun Subjective: * Chief Complaints: * [...] 05/03/2024 Generated for Kirill kaplan/Lily/Yousif on: 0 11/23/2024 07:54 AM EDT
--- OUTSIDE RECORDS SUMMARY | 2024-11-18 05:00 | XMS_ITS ---
Author Organization [facility] Florentin Alas Address [address] [facility] [place] [address] Care Team Providers Care Jboss Architect Name Role Phone Geovani Sears Primary Care Provider Unav ailable Crow Morris Unavailable [phone] Allergies No Known Allergies REASON FOR VISIT At Risk Footcare Medications Medication SIG (Take, Route, Frequency, Duration) Notes Start Date End Date Status Vitamin B12 Not-Taki ng Vitamin D2 Not-Takin g Fluocinonide Active Hydrocortisone Not-T aking Triamcinolone Acet & Anesth Active Stiolto Respimat Not -Taking Furosemide 40 mg once a day No t-Taking Gabapentin 300 MG Orally Three times a day Not-Taking Lipoic Acid Not-Taki ng Meloxicam 15 MG Orally Once a day Not-Taking Extra Depth Orthopedic Shoes (1 Pair) with Customized Heat Molded Multidensity Innersoles (3 Pair) as directed Dx: NIDDM/Polyneuropathy (E11.42), Hammertoe Foot Deformity (M20.41,M20.42), Preulcerative Skin Lesion(s) (L85.1 11/03/2023 Active metFORMIN HCl 1000 MG Oral; Duration: 90 Days Active Rosuvastatin Calcium 40 MG Oral; Duration: 90 Days Acti ve Meloxicam 15 MG Oral; Duration: 90 Days Active Jardiance 10 MG 1 tablet Orally Once a day; Duration: 30 day(s) 11/18/2024 Active Omeprazole 40 MG Orally twice a day Active Ketoconazole Active Combivent Active metFORMIN HCl 500 MG Orally Once a day Active Mucinex Active dilTIAZem HCl ER Coated Beads 240 MG Oral; Duration: 90 Active Amoxicillin-Pot Clavulanate Active Baby Aspirin 81 mg once a day Active Betamethasone Valerate Active Clotrimazole-Betamethason e Active Eucrisa 2 % External; Duration: 30 Active Tacrolimus 0.1 % External; Duration: 90 Active Betamethasone Dipropionate Aug 0.05 % External; Duration: 30 Not-Taking Tamsulosin HCl 0.4 MG Oral; Duration: 90 Active Rosuvastatin Calcium 40 MG Oral; Duration: 90 Active Corlanor 5 MG Oral; Duration: 90 Active Finasteride 5 MG Oral; Duration: 90 Active Trelegy Ellipta 100-62.5-25 MCG/ACT Inhalation; Duration: 90 Active Jardiance 10 MG Oral; Duration: 90 Active DULoxetine HCl 20 MG Oral; Duration: 90 Not-Taking Vitamin D3 Active Vitamin B Complex - as directed Orally Active Verapamil HCl ER 240 MG Oral; Duration: 90 Active Combivent Respimat 20-100 MCG/ACT Inhalation; Duration: 90 Active Ciclopirox Olamine A ctive Social History Tobacco Use: Social History Observation [...] Negative Vital Signs Height 6 ft in 11/18/2024 Weight 245 lbs 11/18/2024 BMI 33.22 kg/m2 11/18/2024 Blood pressure systolic 126 mm Hg 11/19/19 25 Blood pressure diastolic 65 mm Hg 025 Procedures Procedure Date Ordered Date Performed Result Body Sit e 10307-WDRKPTS NAIL, 6 OR MORE 11/18/2024 N/A 84054-HAJC SKIN LESIONS, 2 TO 4 11/18/2024 N/A Encounters Encounter Location Date Provider Diagnosis [facility] [place] [address] [place] [address] 11/18/2024 Crow Morris Type 2 diabetes mellitus with diabetic polyneuropathy E11.42 and Tinea unguium B35.1 Assessments Encounter Date Diagnosis (ICD Code) Assessment Notes Treatment Notes Treatment Clinical Notes Section Notes 11/18/2024 Type 2 diabetes mellitus with diabetic polyneuropathy (ICD-10 - E11.42) 11/18/2024 Tinea unguium (ICD-10 - B35.1) 11/18/2024 Other Plan Of Treatment Pending Test Test Name Order Date 40826-IGMNHOF NAIL, 6 OR MORE 11/18/2024 02255-JFHA SKIN LESIONS, 2 TO 4 11/19/19 25 Next Appt Details Follow Up: prn, Reason: Provider Name:Crow Morris , 03/10/2025 01:45:00 PM, [address] [place] [address], [phone], Procedure Notes * Category Sub-Category Detail Notes Debride Nail 6-10 Nail debridement Due to [...] use of a nail nipper and/or dremel-type hardboard grinder, to a more viable healthy nail [...] to maintain effectiveness in symptomatic relief - 88242 Keratoma Treatment Parring or Cutting o f [...] instrumentation by the physician of record - 04407 Progress Notes * Cody OSEGUERA WDOB: [birth year] (74 yo M)Acc No.[id number]:11/18/2024 Progress Note Patient: Cody LIRA Provider: Eliseo Morris DPM :1950 A ge:74 Y S ex:Male Date:11/18/2024 Address:[address] [place] [address] [place], [id number] Pcp:LOU Sun Subjective: * Chief Complaints: * A t Risk Footcare * HPI: A t Risk footcare: Pt States Last PCP Visit: D ate 0 07/14/2024 * ROS: G eneral/Constitutional: Nausea d enies. V omiting d enies. H adrianna Thirst d enies. L oss appetite d enies. C hills d enies. F atigue a dmits.?Fever d enies. N ight Sweats d enies. U nexplained weight loss d enies. U nexplained weight gain d enies. H EENTM: Dentures d enies. D izziness d enies. G lasses/contacts d enies. R etinopathy d enies. B lurred/double vision d enies. T MJ?denies. D ischarge/drainage d enies. I mplants d enies. S ore throat d enies. D ental implants d enies. H naya of hearing d enies. D ifficulty chewing/swallowing/speaking d enies. N ose bleeds d enies. S ore mouth d enies. ? R espiratory: On Oxygen d enies. P neumonia/pleurisy a dmits.?Bronchitis a dmits. E mphysema d enies. C oughing a dmits. C ough blood?denies. S hortness of breath a dmits. W heezing d enies. C ardiovascular: Pacemaker d enies. M ECONOMIC DEVELOPMENT SPECIALIST d enies. W PW d enies. C HF d enies. H eart attack d enies. S eptal defect d enies. R apid beat a dmits. C hest pain d enies. A trial Fib. d enies. M urmur/Palpitations d enies. G astrointestinal: Hemorrhoids d enies. S tomach/Abdominal pain d enies. D ark blood stool d enies. I rritable bowel d enies. C onstipation d enies. D iarrhea d enies. H ematology: Swelling d enies. C lots d enies. V aricose Veins a dmits. B ruising d enies. B leeding problem d enies. G enitourinary: Blood urine d enies. F requent/Painfu/urination/bladder control d enies. K idney stones d enies. I nfection (UTI) d enies. N ephropathy d enies. s ex trans dis (STD) d enies. P rostate a dmits. M usculoskeletal: Hammertoes a dmits. B unions d enies. B ack Pain d enies. M uscle Cramps/ Resting d enies. M uscle cramps / walking d enies.?Generalized aches and pains a dmits. W eakness a dmits. I nteg.: Mark d enies. S cars d enies. C orns/calluses?admits. I ngrown nails a dmits. P ainful nails d enies. O pen Sores d enies. R ashes d enies. N eurologic: Difficulty sleeping a dmits. B rain disorder d enies. N umbness a dmits. B alance trouble d enies. C onfusion d enies. F ainting/blackouts d enies. T ingling a dmits. T remors d enies. * Medical History: * Surgical History: marguerite ernia 1991heel spur 1997Hernia Repair 2000 * Hospitalization/Major Diagno stic Procedure: [facility]- Throwing up blood 04/2023 * Family History: M other: alive, diagnosed with Other malignant neoplasm of unspecified site, Diabetic - NIDDM.?Father: . P aternal Grand Father: diagnosed with Unspecified cerebral artery occlusion with cerebral infarction. M aternal Grand Mother: diagnosed with Diabetic - NIDDM. S iblings: diagnosed with Unspecified essential hypertension. * Social History: T obacco Use: T obacco use other than smoking A re you an other tobacco user? N o Tobacco Control (Standard) T obacco use: N onsmoker A dditional Findings: Tobacco non-user C urrent nonsmoker M iscellaneous: C affeine: yes, frequency: 3-4. Children: yes. Exercise: yes. Marital status: single. Occupation: retired. D rug/Alcohol: A GINA-C (Standard) D id you have a drink containing alcohol in the past year? N o P oints 0 I nterpretation N egative * Medications: T akingFluocinonide Triamcinolone Acet & Anesth Ciclopirox Olamine Vitamin D3 Vitamin B Complex - Capsule as directed Orally Verapamil HCl ER 240 MG Capsule Extended Release 24 Hour Oral Combivent Respimat 20-100 MCG/ACT Aerosol Solution Inhalation Corlanor 5 MG Tablet Oral Finasteride 5 MG Tablet Oral Trelegy Ellipta 100-62.5-25 MCG/ACT Aerosol Powder Breath Activated Inhalation Jardiance 10 MG Tablet Oral Tamsulosin HCl 0.4 MG Capsule Oral Rosuvastatin Calcium 40 MG Tablet Oral Eucrisa 2 % Ointment External Tacrolimus 0.1 % Ointment External dilTIAZem HCl ER Coated Beads 240 [...] Foot Deformity (M20.41,M20.42), Preulcerative Skin Lesion(s) (L85.1 metFORMIN HCl 1000 MG Tablet Oral Rosuvastatin Calcium 40 MG Tablet Oral Meloxicam 15 MG Tablet Oral Jardiance 10 MG Tablet 1 tablet Orally Once a day Taking Fluocinonide Taking Triamcinolone Acet & Anesth Taking Ciclopirox [...] Taking Jardiance 10 MG Tablet Oral Taking Tamsulosin HCl 0.4 MG Capsule Oral Taking Rosuvastatin Calcium 40 MG Tablet Oral Taking Eucrisa 2 % Ointment External Taking Tacrolimus 0.1 % Ointment External Taking dilTIAZem HCl ER Coated Beads [...] Deformity (M20.41,M20.42), Preulcerative Skin Lesion(s) (L85.1 Taking metFORMIN HCl 1000 MG Tablet Oral Taking Rosuvastatin Calcium 40 MG Tablet Oral Taking Meloxicam 15 MG Tablet Oral Taking Jardiance 10 MG Tablet 1 tablet Orally Once a day Not-Taking/PRNHydrocortisone DULoxetine HCl 20 MG Capsule Delayed Release Particles Oral Betamethasone Dipropionate Aug 0.05 % Cream External Furosemide 40 mg once a day Gabapentin 300 MG Capsule Orally Three times a day Lipoic Acid Meloxicam 15 MG Tablet Orally Once a day Stiolto Respimat Vitamin B12 Vitamin D2 Medication List reviewed and reconciled with the patientNot-Taking/PRN Hydrocortisone Not-Taking/PRN DULoxetine HCl 20 MG Capsule Delayed Release Particles Oral Not-Taking/PRN Betamethasone Dipropionate Aug 0.05 % Cream External Not-Taking/PRN Furosemide 40 mg once a day Not-Taking/PRN Gabapentin 300 MG Capsule Orally Three times a day Not-Taking/PRN Lipoic Acid Not- Taking/PRN Meloxicam 15 MG Tablet Orally Once a day Not-Taking/PRN Stiolto Respimat Not-Taking/PRN Vitamin B12 Not-Taking/PRN Vitamin D2 Medication List reviewed and reconciled with the patient * Allergies: N .K.D.A.yes[Allergies Verified] Objective: * Vitals: H t:6 ft, Wt:245, BMI:33.22, Shoe size:10, BP:126/65mm Hg, BS:not taken, Ht-cm: 182.88 cm, Wt-k.13 kg. * P ast Orders: L ab:HEMOGLOBIN A1C (GLYCOHEMOGLOBIN) (Order Date - 05/11/2024) (Collection Date & Time - 05/13/2024 01:36 PM) Value Reference Range HEMOGLOBIN A1C % (HH) 6.7 * Examination: O phthalmology Referral: DIABETES EYE EXAM P rocedure Performed: Carine Campuzano ate of Exam Performed 1 04/03/2023 D iabetic Retinopathy Screening: Y es R etinal Screening Performed: Y joann F indings of Diabetic Eye Exam: n o retinopathy N eurological: SENSORY: N eurological exam demonstrates a loss of protective sensation by an absence of tested sensitivity to 5.07 [place] monofilament at 2 or more sites out of 5 total locations, each foot. N ails: NAILS are: E longated, overgrown, dystrophic, lytic, greater than 3mm thick, discolored and friable with crumbly malodorous subungual debris , TA, T1, T2, T3, T4, T5, T6, T7, T8, T9. D ermatologic: SKIN FINDINGS: S kin exam reveals Keratotic lesion(s) located at , SUB MTH (s), 5, B/L, Plantar, Heel(s) , B/L . O rthopedic: FOOTWEAR EVALUATION: f air condition, OT were inspected and noted to be worn , in fair condition but giving proper support at the present time. ? G eneral Examination: GENERAL APPEARANCE: R eveals a pleasant, alert, well nourished, well-developed, well hydrated individual, who demonstrates proper attention to hygiene/body habitus, and is in no acute distress, Pt serves as own historian for office visit today. ORIENTED: p erson, place, and time. FOOT EXAM: L ower Extremity Neurological Exam performed:?Yes V isual exam of foot performed: Y es D ate 0 11/18/2024 Footwear Evaluation F ootwear Evaluation performed: Y es Assessment: * Assessment: 1. T ype 2 diabetes mellitus with diabetic polyneuropathy - E11.42 (Primary) 2 . T inea unguium - B35.1 Plan: * Treatment: * Procedures: D ebride Nail 6-10: Nail debridement D ue to the clinical pathology outlined in the exam findings, performance of this nail treatment is medically necessary as its management by an unskilled/untrained nonprofessional would put this patients foot and overall health at risk. Therefore, debridement to affected nail(s), as described in exam ( T A, T1, T2, T3, T4, T5, T6, T7, T8, T9 ) , was performed exclusively by the physician of record to reduce/remove overall nail length, girth, thickness, subungual debris, and necrotic tissue, by manual and/or electrical means through the use of a nail nipper and/or dremel-type hardboard grinder, to a more viable healthy nail [...] to maintain effectiveness in symptomatic relief - 86718. K eratoma Treatment: Parring or Cutting of Benign Hyperkeratotic Lesion(s) ( -56) 2-4 Lesions - Due to the at [...] stated and described in the exam ( S UB MTH (s), 5 , B /L, P lantar, H eel(s) , B /L ) , were pared, and/or cut utilizing a sterile 15 blade, tissue nippers, and/or power dremel instrumentation by the physician of record - 24365. * Procedure Codes: 1 1721 DEBRIDE NAIL, 6 OR MORE, Modifiers: XS 76228 TRIM SKIN LESIONS, 2 TO 4, Modifiers: XS * Follow Up: p rn * Images: * Sign off status: Completed true * Provider: Eliseo Morris DPM Date: 0 11/18/2024 Generated for Kirill kpalan/Lily/Yousif on: 0 11/23/2024 07:55 AM EDT History and Physical Notes * HPI (History of Present Illness) Category Sub-Category Detail Notes Category Not es At Risk footcare Pt States Last PCP Visit: Date: 5 Examination Category Sub-Category Detail Notes Category Not es Neurological SENSORY: Neurological exa m demonstrates a loss of protective sensation by an absence of tested sensitivity to 5.07 [place] monofilament at 2 or more sites out of 5 total locations, each foot Dermatologic SKIN FINDINGS: Skin exam reveal s Keratotic lesion(s) located at , SUB MTH (s), 5, B/L, Plantar, Heel(s) , B/L Orthopedic FOOTWEAR EVALUATION: fair condit ion, OT were inspected and noted to be worn , in fair condition but giving proper support at the present time General Examination GENERAL APPEARANCE: Reveals a pleasant, alert, well nourished, well-developed, well hydrated individual, who demonstrates proper attention to hygiene/body habitus, and is in no acute distress, Pt serves as own historian for office visit today FOOT EXAM: Lower Extremity Neurological Exa m performed:: Yes Visual exam of foot performed:: Yes Date: 11/18/2024 ORIENTED: person, place, and t brandon Footwear Evaluation Footwear Evaluation performe d:: Yes Ophthalmology Referral DIABETES EYE EXAM Procedure Perform ed:: Yes Date of Exam Performed: 02/01/2024 Diabetic Retinopathy Screening:: Yes Retinal Screening Performed:: Yes Findings of Diabetic Eye Exam:: no retin opathy Nails NAILS are: Elongated, overg rown, dystrophic, lytic, greater than 3mm thick, discolored and friable with crumbly malodorous subungual debris , TA, T1, T2, T3, T4, T5, T6, T7, T8, T9
--- NOTE | 2024-11-23 07:52 | CA_ITS ---
Transthoracic Echocardiogram Patient (Last, First, Middle): Cody Rebollar W Gender: M Date of : 1950 Age: 74 Procedure Date: 11/23/2024 Procedure Type: Transthoracic Echocardiogram Location: OP Height: 182.88 cm Weight: 114.76 kg BSA: 2.35 m2 Heart Rate: bpm BP: 130 / 82 mmHg Client Delivery Manager: MASON Referring MD: Broderick Wang MD Developer Architect: Broderick Wang MD Symptoms: I35.0 - Nonrheumatic aortic (valve) stenosis Study Quality: Fair ECG Rhythm: Sinus Conclusions: - 1. Technically limited study 2. Normal LV ejection fraction of 60-65% with grade 1 diastolic dysfunction 3. Hqid-ja-fdouphnv aortic stenosis Findings Left Ventricle Normal left ventricular size, thickness, and systolic function. The visually estimated ejection fraction is between 60-65%. Spectral Doppler is indicative of an impaired relaxation filling pattern. Evidence suggests grade I (mild) diastolic dysfunction. Right Ventricle The right ventricle was not well visualized. Atria The left atrium is likely dilated. Interatrial shunt cannot be excluded. The right atrium was not well visualized. Aortic Valve The aortic valve was not well visualized. There is mild calcification of the aortic valve. There is mild thickening of the aortic valve. There is mild to moderate aortic valve stenosis. The peak aortic gradient is 29 mmHg.The mean gradient is 16 mmHg. The aortic valve area is 1.58 cm2. There is no aortic valve regurgitation. Mitral Valve The mitral valve was not well visualized. There is trace mitral valve regurgitation. There is no mitral valve stenosis. Pulmonic Valve The pulmonic valve was not well visualized. Tricuspid Valve The tricuspid valve was not well visualized. Tricuspid regurgitation envelope is inadequate for calculation of right ventricular systolic pressure. Normal right atrial pressure. Great Vessels The aorta was not well visualized. The pulmonary artery was not well visualized. Venous The inferior vena cava is normal in size and collapses greater than 50% with inspiration. Pericardium/Pleural The pericardium was not well visualized. Prior Study Comparison Changes noted compared to prior study dated: 11/18/2023. Aortic stenosis is xoxb-bv-epgimsim in severity, this could be due to underestimated aortic velocity or measurement of the LVOT Measurements 2D Linear Measurements IVSd: 0.87 0.6-0.9/0.6-1.0 cm LVIDd: 5.62 3.9-5.3/4.2-5.9 cm LVIDd Index: 2.39 2.4-3.2/2.2-3.1 cm/m2 LVIDs: 4.13 2.0-3.6 cm LVPWd: 0.95 0.7-1.1 cm LA Diam: 4.10 2.7-3.8/3.0-4.0 cm LAIDs Index: 1.74 1.5-2.3 cm/m2 LV Mass: 244.39 67-162/88-224 g LV Mass Index: 104.00 43-95/49-115 g/m2 LVOT Diam: 2.50 3.0+(-)1.3 cm 2D Systolic Function EF 4C: 59.80 >55% EF 2C: 63.20 >55% EF BiP: 60.90 >55% Mitral Valve MV Pk E: 0.72 MV PK A: 0.95 MV Decel Time: 306.00 E/A: 0.80 E'Lateral: 8.49 E'Medial: 5.87 E/E' Med: 12.20 E/E' Lat: 8.40 PHT: 90.00 MVA PHT: 2.44 Decel Titus: 2.34 Aortic Valve AoV Pk Jose: 2.71 AoV Mn Jose: 1.85 AoV VTI: 0.64 AoV Pk Grad: 29.00 Aov Mn Grad: 16.00 ANA MARIA Cont.VTI: 1.58 LVOT LVOT Pk Jose: 0.84 LVOT Mn Jose: 0.59 LVOT VTI: 0.21 LVOT Pk Grad: 3.00 LVOT Mn Grad: 2.00 LVOT Diam: 2.50 LVOT Area: 4.91 Diastolic Function MV Pk E: 0.72 MV Pk A: 0.95 E/A: 0.80 E'Medial: 5.87 E/E' Med: 12.20 E' Laterial: 8.49 E/E' Lat: 8.40 Right Ventricle TAPSE (mm): 22.50 TVS' Jose: 14.10 Tricuspid Valve RA Press: 3.00 Great Vessels Aorta Sinus of Valsalva: 3.73 2.0-3.5 cm Pulmonary Veins Pulm Vein S/D 1.40 Updated in Other Vendor System with Status of Final Broderick Kathleen MD electronically signed on 11/23/2024 12:24:28 PM with status of Final
--- OUTSIDE RECORDS SUMMARY | 2024-11-23 07:54 | XMS_ITS | Encounter Summary ---
Author Organization [facility] Address [address] [place] [address] [address] [place] [address] Phone Care Team Providers Care Work Checker Name Role Phone Geovani Samayoa PRODUCTION MAINTENANCE TECHNICIAN Primary Care Provider + Encounter Details Date Type Department Care Team (Latest Contact Info) Description 02/05/2023 Ancillary Orders [facility] [address] [place] [address] [address]rd Floor, [address] [place] [address] MD [address] [facility], [facility] [address] [place] [address] [email or web address] Dyspnea, unspecified type (Primary Dx) [...] Description 04/03/2025 10:40 AM EST Office Visit [facility] [address] Floor, [address] [place] [address] Raji Thurman MD, [place] [address] [facility] [address] [place] [address] [email or web address] documented as of this encounter Results * [...] type documented in this encounter Care Teams Work Checker Relationship Specialty Start Date End Date Geovani Samayoa NP [facility] [place] [address] PCP - General Family Medicine 01/09/22 documented as of this encounter Additional Source Comments The information contained in this document represents components of the legal health record. It is not the complete legal health record.[facility]
--- OUTSIDE RECORDS SUMMARY | 2024-11-23 07:54 | XMS_ITS | Clinical Summary ---
Author Organization [facility] Address [address] [place] [address] [place] [address] Phone Care Team Providers Care Sustainable Design Consultant Name Role Phone Geovani Samayoa AIR QUALITY CHEMIST Primary Care Provider + Allergies No known [...] Active ferrous sulfate 325 mg (65 mg [place] iron) tablet Take 325 mg by mouth [...] Type Department Care Team Description 10/22/2024 Refill [facility] [address], [address] [place] [address] MD Medication Refill 09/27/2024 10:30 AM EDT Office Visit [facility] [place] [address], [address] [place] [address] MD Panlobular emphysema (Primary Dx); [...] Description 04/03/2025 10:40 AM EST Office Visit [facility] [address] [place] [address] [address]rd Floor, [address] [place] [address] Raji Thurman MD, MS [address] [facility], [address] [place] [address] [email or web address] Maintenance Due Date Last Done Comments [...] file Insurance MEDICARE PART A & B Member Subscriber Plan / Payer (Ef fective 2016-Present) Name:Irene Rebollar Member ID:[id number] Relation to Subscriber:Self Name:Irene Rebollar Subscriber ID:[id number] Payer ID:[id number] Group ID:Not on file Type:Medicare Address: [employer]-Divers[employer] Yourself [facility] [employer] [facility]. [address] [facility] [place] [address] [facility] MEDEX SUPPLEMENT MEDICARE PART A & B [place] MED[employer] SUPPLEMENT MEDICARE PART A & B [employer] MED[employer] SUPPLEMENT MEDICARE PART A & B [employer] MED[employer] SUPPLEMENT MEDICARE PART A & B [employer] MEDEX SUPPLEMENT MEDICARE PART A & B [employer] MED[employer] SUPPLEMENT MEDICARE PART A & B [employer] MED[employer] SUPPLEMENT MEDICARE PART A & B [employer] MED[employer] SUPPLEMENT MEDICARE PART A & B [employer] MEDEX SUPPLEMENT Care Teams Sustainable Design Consultant Relationship Specialty Start Date End Date Geovani Samayoa NP [address] [facility] [place] [address] PCP - General Family Medicine 01/09/22 Additional Source Comments The information contained in this document represents components of the legal health record. It is not the complete legal health record.[facility]
--- OUTSIDE RECORDS SUMMARY | 2024-11-23 07:54 | XMS_ITS | Encounter Summary ---
Author Organization [facility] Address [address] [facility] [address] [place] [address] Phone Care Team Providers Care Top Precipitator Operator Name Role Phone Geovani Samayoa INSTALLER SOFT TOP Primary Care Provider + Encounter Details Date Type Department Care Team (Late st Contact Info) Description 02/09/2023 Transcribe Orders [facility] [address] [place] [address] MD [address] [facility], [address] [place] [address] [email or web address] Social History Tobacco Use [...] Description 04/03/2025 10:40 AM EST Office Visit [facility] [address], [address] [place] [address] Raji Thurman MD, MS [address] [facility], [address] [place] [address] [email or web address] documented as of this encounter Visit Diagnoses Not on filedocumented in this encounter Care Teams Top Precipitator Operator Relationship Specialty Start Date End Date Geovani Samayoa NP [facility] [place] [address] PCP - General Family Medicine 01/09/22 documented as of this encounter Additional Source Comments The information contained in this document represents components of the legal health record. It is not the complete legal health record.[facility]
--- OUTSIDE RECORDS SUMMARY | 2024-11-23 07:55 | XMS_ITS | Encounter Summary ---
Author Organization [facility] Address [address] [place] [address] Phone Care Team Providers Care Sports Therapist Name Role Phone Bk St MD Primary Care Provider [phone] Unknown, Unknown Primary Care Provider Geovani Sorenson INSTRUCTIONAL MANAGER Primary Care Provider + Encounter Details Date Type Department Care Team (Late st Contact Info) Description 07/10/2017 Procedure Pass [facility], Ct Scan - [address] [address] Social History Tobacco Use Types Packs/Day Years [...] Description 04/03/2025 10:40 AM EST Office Visit [facility] [address] [facility] 3rd Floor, [address] [place], [place] [id number] Raji Thurman MD, MS [address] [facility], [address] [place] [address] [email or web address] documented as of this encounter Visit Diagnoses Not on filedocumented in this encounter Care Teams Sports Therapist Relationship Specialty Start Date End Date Bk St MD [facility], [address] [place] [address] [email or web address] PCP - General Pulmonary Disease 07/13/17 01/07/21 Unknown, Unknown, PCP - General 01/08/21 01/08/22 Geovani Samayoa NP [address] [place] [address] [place] [address] PCP - General Family Medicine 01/09/22 documented as of this encounter Additional Source Comments The information contained in this document represents components of the legal health record. It is not the complete legal health record.[facility]
--- OUTSIDE RECORDS SUMMARY | 2024-11-23 07:55 | XMS_ITS | Encounter Summary ---
Author Organization [facility] Address [address] [place] [address] Phone Care Team Providers Care Merchandise Marker Name Role Phone Geovani Samayoa GOLF CADDY Primary Care Provider + Encounter Details Date Type Department Care Team (Late st Contact Info) Description 02/16/2024 Procedure Pass [facility], Ct Scan - [address] [address] Social History Tobacco Use Types Packs/Day Years [...] Description 04/03/2025 10:40 AM EST Office Visit [facility] [address] [facility] 3rd Floor, [address] [place] [address] Raji Thurman MD, MS [address] [facility], [address] [place] [address] [email or web address] documented as of this encounter Visit Diagnoses Not on filedocumented in this encounter Care Teams Merchandise Marker Relationship Specialty Start Date End Date Geovani Samayoa NP [address] [place] [address] PCP - General Family Medicine 01/09/22 documented as of this encounter Additional Source Comments The information contained in this document represents components of the legal health record. It is not the complete legal health record.[facility]
--- OUTSIDE RECORDS SUMMARY | 2024-11-23 07:55 | XMS_ITS | Patient Health Record ---
Author Organization [facility] Address [address] [place] [address] Care Team Providers Care Livestock Farm Workers Name Role Phone PAOLO SAMAYOA Primary Care Provider Raji Salas Unavailable [phone] Allergies Allergen (clinical drug ingredient) Drug/Non Drug Allergy documented on EMR Reaction Allergy Type Onset Date Status Aloe Aftersun Unknown Drug Allergy Act alejandro Results Component Value Reference Range Notes Complete Blood Count Auto Di ff Reviewed date:05/05/2024 10:11:31 AM Interpretation: Performing Lab:[facility], [address] [place] [phone] Notes/Report: White Blood Count 10.5 4.8-10.8 X10*3/uL [...] ff Reviewed date:05/05/2024 10:10:45 AM Interpretation: Performing Lab:[facility], [address] [place] [phone] Notes/Report: White Blood Count 8.9 4.8-10.8 X10*3/uL [...] Pathology Reviewed date:05/09/2024 06:04:55 PM Interpretation: Performing Lab:[facility], [address] [place] [phone] Notes/Report: CT angio abdomen Reviewed date:05/05/2024 10:11:09 AM Interpretation: Performing Lab: Notes/Report: [address] [address] [address] Scan Report Signed with Addenda Patient: Irene Rebollar MR#: [id number] 63 : 1950 Acct:[id number] Age/Sex: 74 / M ADM Date: 05/03/24 Loc: [facility] [id number]: Cristiano Serrano MD Ordering Physician: Raji Tellez MD Date of Service: 05/04/24 Procedure(s): CT angio abdomen Accession Number(s): [id number] cc: Paolo Samayoa [facility]-; Raji Tellez MD Report Number: [id number]: Total DLP = 2273.00 mGy-cm ADDENDUM This [...] in OV> 05/04/241845 DD/ 43 TD/TT: 05/04/241843 Bundler Seasonal Greenery: Complete Blood Count Auto Di ff Reviewed date:05/05/2024 05:48:11 PM Interpretation: Performing Lab:[facility], [address] [place] [phone] Notes/Report: White Blood Count 8.3 4.8-10.8 X10*3/uL [...] Gel Reviewed date:05/05/2024 06:02:20 PM Interpretation: Performing Lab:[facility], [address] [place] [phone] Notes/Report: Hold Green Gel See Note Specimen held untested for 24 hours; Call to request Chemistry testing. Reason For Referral No Information Medications Medication SIG (Take, Route, Frequency, Duration) Notes Start Date End Date Status Lasix 40 MG 1 tablet Orally Once a day for 30 day(s) Active Vitamin D (Ergocalciferol) 72505 UNIT as directed Oral twice a week [...] Problem Status W/U Status Risk Notes Problem 397167572 Encounter for screening for malignant neoplasm of colon (Z12.11) Active confirmed Problem 209183284 History of adenomatous polyp of colon (Z86.010) Active confirmed Problem 34863770 Iron deficiency (E61.1) Active confirmed Problem Diverticular disease of colon (588661629) Diverticulosis of large intestine without hemorrhage (K57.30) Active confirmed Problem 635618677511113 Preprocedural examination (Z01.818) Active confirmed Problem 854413211 Gastroesophageal reflux disease, esophagitis presence not specified [...] [place] [address] [place] [address] [id number] IRENE REBOLLAR Self - patient is the insured [employer] CLAIMS [address] [place] [address] [phone] [id number] IRENE REBOLLAR Self - patient is the insured Medical (General) History Medical History History ICD Code Denies CO,CVA,renal disease NIDDM COPD Colonoscopy in 2006 with mul tiple tubular adenoms removed, 1 with moderate dysplasia GERD--UGI in 2016 with a hiatal hernia Neuropathy in arms and legs HTN Edema Surgical History Surgery Date(Month/Year) Right inguinal hernia repair x 2 Heel spur
--- OUTSIDE RECORDS SUMMARY | 2024-11-23 07:55 | XMS_ITS | Encounter Summary ---
Author Organization [facility] Address [address] [place] [address] Phone Care Team Providers Care Refrigerator Mover Name Role Phone Geovani Samayoa UX DEVELOPER DESIGNER Primary Care Provider + Encounter Details Date Type Department Care Team (Late st Contact Info) Description 02/04/2023 Procedure Pass [facility], Ct Scan - [address] [address] Social History Tobacco Use Types Packs/Day Years [...] Description 04/03/2025 10:40 AM EST Office Visit [facility] [address] [facility] 3rd Floor, [address] [place] [address] Raji Thurman MD, MS 22 [facility], [address] [place] [address] [email or web address] documented as of this encounter Visit Diagnoses Not on filedocumented in this encounter Care Teams Refrigerator Mover Relationship Specialty Start Date End Date Geovani Samayoa NP [address] [facility] [address] PCP - General Family Medicine 01/09/22 documented as of this encounter Additional Source Comments The information contained in this document represents components of the legal health record. It is not the complete legal health record.[facility]
--- OUTSIDE RECORDS SUMMARY | 2024-11-23 07:55 | XMS_ITS | Encounter Summary ---
Author Organization [facility] Address [address] [place] [address] Phone Care Team Providers Care Conveyor Attendant Name Role Phone Bk St MD Primary Care Provider [phone] Unknown, Unknown Primary Care Provider Geovani Sorenson MANAGER FASHION Primary Care Provider + Encounter Details Date Type Department Care Team (Late st Contact Info) Description 07/10/2017 Ancillary Orders Virtual Department [address] [place] [address] MD [address] [facility], [address] [address] [email or web address] Atelectasis Social History Tobacco Use Types Packs/Day [...] Description 04/03/2025 10:40 AM EST Office Visit [facility] [address] [place] [address] 3rd Floor, [address] [place] [address] Raji Thurman MD, MS [address] [facility], [address] [address] [email or web address] documented as of this encounter Results * [...] collapse documented in this encounter Care Teams Conveyor Attendant Relationship Specialty Start Date End Date Bk St MD [address] [place] [address], [address] [place] [address] [email or web address] PCP - General Pulmonary Disease 07/13/17 01/07/21 Unknown, Unknown, PCP - General 01/08/21 01/08/22 Geovani Samayoa NP [address] [place] [address] [place] [address] PCP - General Family Medicine 01/09/22 documented as of this encounter Additional Source Comments The information contained in this document represents components of the legal health record. It is not the complete legal health record.[facility]
--- OUTSIDE RECORDS SUMMARY | 2024-11-23 07:55 | XMS_ITS | Patient Health Record ---
Author Organization [facility] [place] Address [address] [place] [address] Care Team Providers Care At Risk Paraprofessional Name Role Phone Geovani Sears Primary Care Provider Unav ailable Crow Morris Unavailable [phone] Allergies No Known Allergies Results Component Value Reference Range Notes HEMOGLOBIN A1C (GLYCOHEMOGLO BIN) Reviewed date:05/13/2024 01:37:24 PM Interpretation: Performing Lab: Notes/Report: HEMOGLOBIN A1C % (HH) 6.7 Reason For Referral No Information Medications Medication SIG (Take, Route, Frequency, Duration) Notes Start Date End Date Status Extra Depth Orthopedic Shoes (1 Pair) with Customized Heat Molded Multidensity Innersoles (3 Pair) as directed Dx: NIDDM/Polyneuropathy (E11.42), Hammertoe Foot Deformity (M20.41,M20.42), Preulcerative Skin Lesion(s) (L85.1 11/03/2023 Active metFORMIN HCl 1000 MG Oral; Duration: 90 Days Active Corlanor 5 MG Oral; Duration: 90 Active Rosuvastatin Calcium 40 MG Oral; Duration: 90 Days Acti ve Finasteride 5 MG Oral; Duration: 90 Active Meloxicam 15 MG Oral; Duration: 90 Days Active Trelegy Ellipta 100-62.5-25 MCG/ACT Inhalation; Duration: 90 Active Jardiance 10 MG 1 tablet Orally Once a day; Duration: 30 day(s) 11/18/2024 Active Jardiance 10 MG Oral; Duration: 90 Active Furosemide 40 mg once a day No t-Taking DULoxetine HCl 20 MG Oral; Duration: 90 Not-Taking Gabapentin 300 MG Orally Three times a day Not-Taking Tamsulosin HCl 0.4 MG Oral; Duration: 90 Active Lipoic Acid Not- ng Rosuvastatin Calcium 40 MG Oral; Duration: 90 Active Meloxicam 15 MG Orally Once a day Not-Taking Vitamin D3 Active Omeprazole 40 MG Orally twice a day Active Vitamin B Complex - as directed Orally Active Ketoconazole Active Verapamil HCl ER 240 MG Oral; Duration: 90 Active Combivent Respimat 20-100 MCG/ACT Inhalation; Duration: 90 Active Vitamin B12 Not-i ng Vitamin D2 Not-Takin g dilTIAZem HCl ER Coated Beads 240 MG Oral; Duration: 90 Active Amoxicillin-Pot Clavulanate Active Baby Aspirin 81 mg once a day Active Betamethasone Valerate Active Fluocinonide Active Clotrimazole-Betamethason e Active Hydrocortisone Not-T aking Combivent Active Triamcinolone Acet & Anesth Active metFORMIN HCl 500 MG Orally Once a day Active Ciclopirox Olamine A ctive Mucinex Active Eucrisa 2 % External; Duration: 30 Active Stiolto Respimat Not -Taking Tacrolimus 0.1 % External; Duration: 90 Active Betamethasone Dipropionate Aug 0.05 % External; Duration: 30 Not-Taking Immunizations Vaccine Route Administration Date Status Comme [...] Problem Acquired hammer toe of right foot (6489274696289931 ) Other hammer toe(s) (acquired), right foot (M20.41) Active confirmed Response to treatment, Improvemen t Problem Acquired hammer toe of left foot (7604448499696797 ) Other hammer toe(s) (acquired), left foot (M20.42) Active confirmed Response to treatment, Improvemen t Problem Polyneuropathy due to type 2 diabetes mellitus (161023847) Type 2 diabetes mellitus with diabetic polyneuropathy (E11.42) Active confirmed Vital Signs Blood pressure diastolic 65 mm Hg 11/18/2024 Height 6 ft in 11/18/2024 Blood pressure systolic 126 mm Hg 11/18/2024 Weight 245 lbs 11/18/2024 BMI 33.22 kg/m2 11/18/2024 Procedures Procedure Date Ordered Date Performed Result Body Sit e 44381-XOESBGR NAIL, 6 OR MORE 02/02/2024 N/A 11388-ACKK SKIN LESIONS, 2 TO 4 02/02/2024 N/A 20783-QDJTMMT NAIL, 6 OR MORE 05/13/2024 N/A 41926-QEZO SKIN LESIONS, 2 TO 4 05/13/2024 N/A 42757- Removal of Foreign Body, Subcut 05/13/2024 N/A 46994-NFDJWEU NAIL, 6 OR MORE 08/16/2024 N/A 71800-WPWO SKIN LESIONS, 2 TO 4 08/16/2024 N/A 01709-KHALKEF NAIL, 6 OR MORE 11/18/2024 N/A 67571-JXOP SKIN LESIONS, 2 TO 4 11/18/2024 N/A Encounters Encounter Location Date Provider Diagnosis [address] [address] 02/02/2024 Crow Morris Type 2 diabetes mellitus with diabetic polyneuropathy E11.42 and Tinea unguium B35.[address] [address] 05/13/2024 Crowerin Morris Type 2 diabetes mellitus with diabetic polyneuropathy E11.42 ; Tinea unguium B35.1 ; Other hammer toe(s) (acquired), right foot M20.41 ; Other hammer toe(s) (acquired), left foot M20.42 and Puncture wound with foreign body, right foot, initial encounter S91.341A [address] [address] 08/16/2024 Crowerin Morris Type 2 diabetes mellitus with diabetic polyneuropathy E11.42 and Tinea unguium B35.1 [facility] [address] [place] [address] 11/18/2024 Crow Morris Type 2 diabetes mellitus with diabetic polyneuropathy E11.42 and Tinea unguium B35.[address] [address] 05/03/2024 Crow Morris Assessments Encounter Date Diagnosis (ICD Code) Assessment Notes Treatment Notes Treatment Clinical Notes Section Notes 02/02/2024 Type 2 diabetes mellitus with diabetic polyneuropathy (ICD-10 - E11.42) 02/02/2024 Tinea unguium (ICD-10 - B35.1) 05/13/2024 Tinea unguium (ICD-10 - B35.1) 08/16/2024 Type 2 diabetes mellitus with diabetic polyneuropathy (ICD-10 - E11.42) 08/16/2024 Tinea unguium (ICD-10 - B35.1) 11/18/2024 Type 2 diabetes mellitus with diabetic polyneuropathy (ICD-10 - E11.42) 11/18/2024 Tinea unguium (ICD-10 - B35.1) 05/13/2024 Type 2 diabetes mellitus with diabetic polyneuropathy (ICD-10 - E11.42) 05/13/2024 Other hammer toe(s) (acquired), right foot (ICD-10 - M20.41) Response to treatment,Impro vement 05/13/2024 Other hammer toe(s) (acquired), left foot (ICD-10 - M20.42) Response to treatment,Impro vement 05/13/2024 Puncture wound with foreign body, right foot, initial encounter (ICD-10 - S91.341A) 02/02/2024 Other 05/13/2024 Other 08/16/2024 Other 11/18/2024 Other Plan Of Treatment Pending Test Test Name Order Date 88579-IJPOMBY NAIL, 6 OR MORE 11/03/2023 15702-VBDFKLW NAIL, 6 OR MORE 02/02/2024 16383-UYKHZPM NAIL, 6 OR MORE 05/13/2024 69141-VVTJBTJ NAIL, 6 OR MORE 08/16/2024 53104-CQOSOCN NAIL, 6 OR MORE 11/18/2024 53966-Svhfwkdj Plate 11/03/2023 44424- Debride <25 sq cm 07/23/2018 57592 I&D ABSCESS- SIMPLE,SINGLE 019 35976-ARNE SKIN LESIONS, 2 TO 4 11/03/19 24 14195-MQGD SKIN LESIONS, 2 TO 4 05/14/19 25 25914-CBJH SKIN LESIONS, 2 TO 4 02/02/20 24 08557-NRNK SKIN LESIONS, 2 TO 4 11/19/19 25 70707-IKOW SKIN LESIONS, 2 TO 4 08/17/19 15767- Removal of Foreign Body, Subcut 0 05/13/2024 Next Appt Details Provider Name:Crow Isela Morris , 03/10/2025 01:45:00 PM, [address] [place], [address], Insurance Providers Payer Name Payer Address Payer Phone Subscriber Number Group Number Insured Name Patient Relationship to Insured Coverage Start Date Coverage End Date Medicare National Govt [facility] [address] [facility] [place] [address] [id number] Cody Rebollar Self - patient is the insured 7 [employer] Blue [employer] [address] [place] [address] [phone] [id number] Cody Rebollar Self - patient is the [...] Hernia Repair 2000 Hospitalization History Reason Date(Month/Year) [facility]- Throwing up blood 04/2023
== END ==
LOC: HO.CARD 07:50
PROVIDERS: PCP Nurse Practitioner Family; Visit Provider Internal Medicine Cardiovascular Disease
DX: I35.0 Nonrheumatic aortic (valve) stenosis (principal); R07.9 Chest pain, unspecified
CPT/HCPCS: 93306

== ENCOUNTER → 2024-11-23 07:52 | Outpatient (BNV) | payer MEDICARE, SELFPAY | PROVIDERS: PCP Nurse Practitioner Family; Visit Provider Internal Medicine Cardiovascular Disease | DX: I35.0 Nonrheumatic aortic (valve) stenosis (principal) | CPT/HCPCS: 93306 ==

== ENCOUNTER 2024-12-13 08:38 | Outpatient (AMB) | payer MEDICARE, SELFPAY ==
--- OUTSIDE RECORDS SUMMARY | 2024-05-03 07:00 | XMS_ITS ---
Author Organization [facility] marguerite [place] Address [address] [place] [address] Care Team Providers Care Metal Fabricator Helper Name Role Phone Geovani Sears Primary Care Provider Unav ailable Crow Morris Unavailable [phone] Encounters Encounter Location Date Provider Diagnosis [address] [address] 05/03/2024 Crow Morris Plan Of Treatment Next Appt Details Provider Name:Crow Morris , 03/10/2025 01:45:00 PM, [address] [place] [address], [address], Progress Notes * Cody REBOLLAR WDOB: 3 (74 yo M)Acc No.[id number]:05/03/2024 Progress Note Patient: Cody LIRA Provider: Luzmaria Morris DPM :1950 A ge:74 Y S ex:Male Date:05/03/2024 Address:[address] [place] [address] jorge alberto [id number] Pcp:LOU Sun Subjective: * Chief Complaints: * [...] 0 05/03/2024 Generated for Kirill kaplan/Lily/Yousif on: 1 09:02 AM EDT
--- NOTE | 2024-12-13 08:41 | AM.OFFVISMDC ---
Intake Vital Signs 12/13/24 08:42 Height 6 ft Weight 257 lb BMI 34.9 BP 142/82 H Blood Pressure Location Lt brachial Position Sitting Respiration 18 Pulse 95 Pulse Source Pulse Oximeter Pulse Oximetry (%) 97 Oxygen Delivery Method Room Air Intake Visit Reasons: [facility] G0439 Manager New Product Required: No Accompanied by: Self / Same As Patient Allergies No Known Allergies Allergy (Verified 12/13/24 09:39) Medication List - Last Reconciled 12/13/24 by ARTEMIO Arceo aspirin (Adult Aspirin Regimen) 81 mg PO DAILY cholecalciferol (vitamin D3) 50 mcg PO MOWEFR diltiazem HCl CD 240 mg PO BID 90 days empagliflozin (Jardiance) 10 mg PO DAILY ezetimibe 10 mg PO DAILY finasteride (Proscar) 5 mg PO DAILY 90 days ykxyxwmeftg-hpkygwplf-sxvtmcfu 100-62.5-25 mcg (Trelegy Ellipta) 2 inhalations inhalation DAILY ipratropium-albuterol 20-100 mcg/actuation (Combivent Respimat) 1 puff inhalation QID PRN isosorbide mononitrate ER 30 mg PO DAILY ivabradine (Corlanor) 5 mg PO BID 90 days meloxicam 15 mg PO DAILY PRN metformin 1,000 mg PO BID omeprazole 40 mg PO DAILY@0630 phenazopyridine (Pyridium) 200 mg PO BID rosuvastatin 40 mg PO DAILY vitamin B complex 1 tab PO DAILY HPI SWV G0439 HPI Details AWV: CCC not filled out, PPP in scan pile. sees a opener verifier packer [employer], nurse aide, and urologist. HPI Comments History of Present Illness Details diabetes: A1c: 7.3 on ezetimibe and a statin. Pt is on on jardiance. Eye exam is up to date according to pt. Pt does report bilat foot neuropathy. Pt reports he will get his a1c down himself, does not want to change meds. #2 encouraged pt to take his BP at home, writting them down COUNTS INCLUDE 234 BEDS AT THE [facility] Medical History Neuropathy COPD (chronic obstructive pulmonary disease) PAD (peripheral artery disease) Arrhythmia Diabetes Dyslipidemia Hyperlipidemia Inappropriate sinus tachycardia Surgical History H/O endoscopy H/O colonoscopy History of surgery Hx of hernia repair Hx of cardiac cath Family History Paternal Grandfather CAD (coronary artery disease) Father Pulmonary disease Maternal Grandmother Diabetes mellitus Social History Household Members: Children Housing: House Are you a primary acute care nurse practitioner to a significant other at home: No Do you presently have visiting nurse or other home services: No Alcohol intake: current Alcohol intake frequency: holidays/special occasions only Patient Tobacco Use Status: Former Tobacco user Tobacco use type: Cigarette e-Cigarette/Vaping Use: Never Used Second Hand Smoke Exposure: No Advance Directives Date on File: 12/14/23 service: No Current occupational status: retired Cognitive needs: No Hearing needs: No Vision needs: No Questionnaire Medicare Wellness Checkup [age] What gender do you identify with?: male During the past 4 weeks, how much have you been bothered by emotional problems such as feeling anxious, depressed, irritable, sad or downhearted, and blue?: not at all During the past 4 weeks, has your physical & emotional health limited your social activities with family, friends, neighbors, or groups?: slightly During the past 4 weeks, how much bodily pain have you generally had?: mild pain During the past 4 weeks, was someone available to help you if you needed & wanted help?: yes, quite a bit During the past 4 weeks, what was the hardest physical activity you could do for at least 2 minutes?: heavy Can you get to places out of walking distance without help? (For eg., can you travel alone on buses, taxis or drive your car?): Yes Can you go shopping for groceries or clothes without someone's help?: Yes Can you prepare your own meals?: Yes Can you do your housework without help?: Yes Because of any health problems, do you need the help of another person with your personal care needs such as eating, bathing, dressing or getting around the house?: No Can you handle your own money without help?: Yes During the past 4 weeks, how would you rate your health in general?: fair During the past 4 weeks how have things been going for you?: good & bad parts about equal Are you having difficulties driving your car?: no Do you always fasten your seat belt when you are in a car?: no During past 4 weeks, have you been bothered by the following: never: Falling or dizzy when standing up and Problems using the telephone?, seldom: Trouble eating well? and Teeth or denture problems? and sometimes: Sexual problems? and Tiredness or fatigue? Have you fallen 2 or more times in the past year?: No Are you afraid of falling?: No Are you a smoker?: no Have you been given information to help with the following?: yes: Hazards in your house that might hurt you? and yes: Keeping track of your medications? How often do you have trouble taking medicines the way you have been told to take them?: sometimes I take medicine as prescribed How confident are you that you can control & manage most of your health problems?: somewhat confident What is your race?: White Mini Mental State Exam (MMSE) Orientation What is the (year) (season) (date) (day) (month)?: year, season, date, day and month Where are we (state) (county) (town or city) (hospital) (floor)?: state, county, town or city, hospital/clinic and floor Registration Name of 3 unrelated objects clearly and slowly, then ask patient to repeat all 3 of them. (1st repeat determines score. Make sure they can repeat all three): object 1, object 2 and object 3 Attention & Calculation (CHOOSE ONE) Spell WORLD backwards (DLROW): 5 letters Recall Ask patient to repeat the 3 items from question #3.: object 1, object 2 and object 3 Language Show patient a wristwatch & ask what it is. Repeat for pencil.: watch and pencil Ask the patient to repeat the phrase 'No ifs, ands, or buts' after you.: correct Ask the patient to 'take a piece of paper with their right hand' 'fold paper in half' 'place paper on floor': take paper in right hand, fold paper in half and place paper on floor Print the sentence 'CLOSE YOUR EYES' on a piece. If patient actually closes eyes then score.: followed written direction Give patient a blank piece of paper & ask to write a sentence. Score if it contains a noun & verb.: sentence contains subject and verb Ask patient to copy figure of intersecting pentagons exactly. Score if all 10 angles & 2 intersects are included.: all 10 angles present & 2 are intersected Score Score: 30 Activity of Daily Living Bathing - sponge bath, tub bath or shower: receives no assistance (gets in/out by self, if usual bathing means Dressing - getting clothes from closets & drawers, including inner/outer garments & fasteners.: gets clothes & gets completely dressed without help Toileting - going to the 'toilet room' for urine/bowel elimination & cleaning self/arranging clothes: goes to toilet room, cleans self, arranges clothes without help Transfer: moves in & out of bed and chair without help (may use support object) Continence: controls urination/bowel movements completely by self Feeding: feeds self without help Total Score: 0 Information obtained from: patient Using telephone: independent Traveling: independent Shopping: independent Preparing meals: independent Housework: independent Taking medicine: independent Managing money: independent PHQ-9 Over the last 2 weeks, how often have you been bothered by any of the following problems? 1. Little interest or pleasure in doing things: not at all 2. Feeling down, depressed, or hopeless: not at all 3. Trouble falling or staying asleep, or sleeping too much: not at all 4. Feeling tired or having little energy: not at all 5. Poor appetite or overeating: not at all 6. Feeling bad about yourself - or that you are a failure or have let yourself or your family down: not at all 7. Trouble concentrating on things, such as reading the newspaper or watching television: not at all 8. Moving or speaking so slowly that other people could have noticed. Or the opposite - being so fidgety or restless that you have been moving around a lot more than usual: not at all 9. Thoughts that you would be better off or of hurting yourself in some way: not at all Total score: 0 Depression Screening Interpretation: Negative Depression Screening Done: Yes 23107 - PHQ-9 Billing: Yes Source: Developed by Drs. Raji Jones, Joanna Lopez, Nathaniel Edgar and colleagues, with an educational galen from [employer]. Review of Systems Const Details: sob with exertion, tachy with movement, denies any fevers, chills, ABD pain, CP, SI or HI. Physical Exam Vital Signs: Last Vital Signs Pulse 95 12/13/24 08:42 Resp 18 12/13/24 08:42 BP 142/82 H 12/13/24 08:42 Pulse Ox 97 12/13/24 08:42 Oxygen Delivery Method Room Air 12/13/24 08:42 BMI result Body Mass Index 34.9 Resp Other: scattered wheezes, though moving air Cardio Other: s1 s2 systolic murmur Neuro Other: able to stand from sitting position. Passed whisper test. difficult time performing tandem walking. neg rhomberg Assessment & Plan Assessment & Plan (1) Diabetes: Code(s): E11.9 - Type 2 diabetes mellitus without complications (2) Vitamin D deficiency: Code(s): E55.9 - Vitamin D deficiency, unspecified (3) Encounter for subsequent annual wellness visit (AWV) in Medicare patient: Code(s): Z00.00 - Encounter for general adult medical examination without abnormal findings (4) Screening PSA (prostate specific antigen): Code(s): Z12.5 - Encounter for screening for malignant neoplasm of prostate Plan . Orders: Orders Comprehensive [place]. Panel Fast Today E11.9 - Type 2 diabetes mellitus without complications TSH reflex Free T4 Today E11.9 - Type 2 diabetes mellitus without complications Lipid Panel Today E11.9 - Type 2 diabetes mellitus without complications Vitamin D 25-OH Total Today E11.9 - Type 2 diabetes mellitus without complications, E55.9 - Vitamin D deficiency, unspecified Complete Blood Count Auto Diff Today E11.9 - Type 2 diabetes mellitus without complications UA CC w/rflx Micro + Cult Today E11.9 - Type 2 diabetes mellitus without complications AMB Hemoglobin A1c Today Z13.9 - Encounter for screening, unspecified Hepatitis A,B,C Profile Today Z11.59 - Encounter for screening for other viral diseases Prostate Specific Antigen Scr Today Z12.5 - Encounter for screening for malignant neoplasm of prostate Medications: New amoxicillin-pot clavulanate 875-125 mg 1 tab PO BID 10 days 20 tabs 0RF amoxicillin-pot clavulanate 875-125 mg 1 tab PO BID 20 tabs 0RF 10 days Quality Reporting (2019) Depression/Bipolar (159/160/161/177) PHQ-9: Total score: 0 Coding Level of Care Code Medicare Subsequent (G0439) Est Pt Level 3 (64491) Diagnoses Diabetes E11.9 Vitamin D deficiency E55.9 Encounter for subsequent annual wellness visit (AWV) in Medicare patient Z00.00 Screening PSA (prostate specific antigen) Z12.5 CPT Codes Advance Care Planning - Time spent: 1-15 minutes, on File ([id number]) Additional Codes PHQ-9 - 11581 - PHQ-9 Billing: Yes ([id number]) Advance Care Planning Forms completed: Health Care Proxy (scanned), MOLST (pt will fill out) and Living will (pt reports working on this) Time spent: 1-15 minutes, on File Actual minutes spent: 5
[2024-12-13 08:42] VITALS: BP 142/82; PULSE 95; RESP 18; O2SAT 97; BMI 34.9
--- OUTSIDE RECORDS SUMMARY | 2024-12-13 09:02 | XMS_ITS ---
Author Name [facility] Organization Unknown Encounters Encounter Type Encounter Reason Primary Diagnosis Location Date Ambulatory TBE Acute pharyngiti s due to other specified organisms [facility] 12/11/2024 Care Team Organization Name Specialty Phone Email Start Date End Da te [facility] 12/11/2024
--- OUTSIDE RECORDS SUMMARY | 2024-12-13 09:02 | XMS_ITS | Patient Health Record ---
Author Organization [facility] Florentin marguerite Allen Address [address] [place] [address] Care Team Providers Care Conference Services Director Name Role Phone Geovani Sears Primary Care Provider Unav ailable Crow Morris Unavailable [phone] Allergies No Known Allergies Results Component Value [...] Problem Acquired hammer toe of right foot (2881450140630960 ) Other hammer toe(s) (acquired), right foot (M20.41) Active confirmed Response to treatment, Improvemen t Problem Acquired hammer toe of left foot (2411255787752090 ) Other hammer toe(s) (acquired), left foot (M20.42) Active confirmed Response to treatment, Improvemen t Problem Polyneuropathy due to type 2 diabetes mellitus (961184074) Type 2 diabetes mellitus with diabetic polyneuropathy (E11.42) Active confirmed Vital Signs Blood pressure diastolic 65 mm Hg 11/18/2024 Height 6 ft in 11/18/2024 Blood pressure systolic 126 mm Hg 11/18/2024 Weight 245 lbs 11/18/2024 BMI 33.22 kg/m2 11/18/2024 Procedures Procedure Date Ordered Date Performed Result Body Sit e 97604-HRJRDGZ NAIL, 6 OR MORE 02/02/2024 N/A 58886-QHCO SKIN LESIONS, 2 TO 4 02/02/2024 N/A 06956-AJTBDFT NAIL, 6 OR MORE 05/13/2024 N/A 07251-YBAJ SKIN LESIONS, 2 TO 4 05/13/2024 N/A 29105- Removal of Foreign Body, Subcut 05/13/2024 N/A 39303-RAJIFTS NAIL, 6 OR MORE 08/16/2024 N/A 89004-AJYJ SKIN LESIONS, 2 TO 4 08/16/2024 N/A 39073-QNNOTZO NAIL, 6 OR MORE 11/18/2024 N/A 30219-AZHX SKIN LESIONS, 2 TO 4 11/18/2024 N/A Encounters Encounter Location Date Provider Diagnosis [address] [address] 02/02/2024 Crow Morris Type 2 diabetes mellitus with diabetic polyneuropathy E11.42 and Tinea unguium B35.[address] [address] 05/13/2024 Crowerin Morris Type 2 diabetes mellitus with diabetic polyneuropathy E11.42 ; Tinea unguium B35.1 ; Other hammer toe(s) (acquired), right foot M20.41 ; Other hammer toe(s) (acquired), left foot M20.42 and Puncture wound with foreign body, right foot, initial encounter S91.341A [address] [address] 08/16/2024 Crowerin Morris Type 2 diabetes mellitus with diabetic polyneuropathy E11.42 and Tinea unguium B35.1 [facility] [address] [place] [address] 11/18/2024 Crow Morris Type 2 diabetes mellitus with diabetic polyneuropathy E11.42 and Tinea unguium B35.[address] [address] 05/03/2024 Crow Morris Assessments Encounter Date Diagnosis [...] Treatment Pending Test Test Name Order Date 30705-FZIQMSF NAIL, 6 OR MORE 11/03/2023 15208-HQCOHJY NAIL, 6 OR MORE 02/02/2024 28255-RVRBBAP NAIL, 6 OR MORE 05/13/2024 71692-GZCHSCF NAIL, 6 OR MORE 08/16/2024 23914-ZYFPQRJ NAIL, 6 OR MORE 11/18/2024 72132-Xxkknpov Plate 11/03/2023 18516- Debride <25 sq cm 07/23/2018 32267 I&D ABSCESS- SIMPLE,SINGLE 019 09066-GNHD SKIN LESIONS, 2 TO 4 11/03/19 24 45134-IOBW SKIN LESIONS, 2 TO 4 05/14/19 25 19349-GWFA SKIN LESIONS, 2 TO 4 02/02/20 24 34553-JNCR SKIN LESIONS, 2 TO 4 11/19/19 25 39395-RDQA SKIN LESIONS, 2 TO 4 08/17/19 97933- Removal of Foreign Body, Subcut 0 05/13/2024 Next Appt Details Provider Name:Crow Isela Morris , 03/10/2025 01:45:00 PM, [address] [place], [address], Insurance Providers Payer Name Payer Address Payer Phone Subscriber Number Group Number Insured Name Patient Relationship to Insured Coverage Start Date Coverage End Date Medicare National Govt [facility] [address] [place] [address] [id number] Cody Rebollar Self - patient is the insured 7 [employer] [address] [place] [address] [phone] [id number] Cody Rebollar Self - patient is the [...] Hernia Repair 2000 Hospitalization History Reason Date(Month/Year) [facility] [place] Throwing up blood 04/2023
--- OUTSIDE RECORDS SUMMARY | 2024-12-13 09:03 | XMS_ITS | Patient Health Record ---
Author Organization [facility] Address [address] [place] [address] Care Team Providers Care Rn Pediatric Icu Name Role Phone PAOLO SAMAYOA Primary Care Provider Raji Salas Unavailable [phone] Allergies Allergen (clinical drug ingredient) Drug/Non Drug Allergy documented on EMR Reaction Allergy Type Onset Date Status Aloe Aftersun Unknown Drug Allergy Act alejandro Results Component Value Reference Range Notes Complete Blood Count Auto Di ff Reviewed date:05/05/2024 10:11:31 AM Interpretation: Performing Lab:[facility], [address] [place] [address] Notes/Report: White Blood Count 10.5 4.8-10.8 X10*3/uL [...] ff Reviewed date:05/05/2024 10:10:45 AM Interpretation: Performing Lab:[facility], [address] [place] [phone] Notes/Report: White Blood Count 8.9 4.8-10.8 X10*3/uL [...] Pathology Reviewed date:05/09/2024 06:04:55 PM Interpretation: Performing Lab:[facility], [address] [place] [phone] Notes/Report: CT angio abdomen Reviewed date:05/05/2024 10:11:09 AM Interpretation: Performing Lab: Notes/Report: [address] [address] [address] Scan Report Signed with Addenda Patient: Irene Rebollar MR#: [id number] 63 : 1950 Acct:[id number] Age/Sex: 74 / M ADM Date: 05/03/24 [facility]: [facility] 372-[address]: Cristiano Serrano MD Ordering Physician: Raji Tellez MD Date of Service: 05/04/24 Procedure(s): CT angio abdomen Accession Number(s): [id number] cc: Paolo Samayoa [facility]-; Raji Tellez MD Report Number: [id number]: Total DLP = 2273.00 mGy-cm ADDENDUM This [...] in OV> 05/04/241845 DD/ 43 TD/TT: 05/04/241843 Legal Assistant: Complete Blood Count Auto Di ff Reviewed date:05/05/2024 05:48:11 PM Interpretation: Performing Lab:[facility], [address] [place] [phone] Notes/Report: White Blood Count 8.3 4.8-10.8 X10*3/uL [...] Gel Reviewed date:05/05/2024 06:02:20 PM Interpretation: Performing Lab:[facility], [address] [place] [phone] Notes/Report: Hold Green Gel See Note Specimen held untested for 24 hours; Call to request Chemistry testing. Reason For Referral No Information Medications Medication SIG (Take, Route, Frequency, Duration) Notes Start Date End Date Status Lasix 40 MG 1 tablet Orally Once a day; Duration: 30 day(s) Active Vitamin D (Ergocalciferol) 09978 UNIT as directed Oral twice a week Active Meloxicam 15 MG 1 tablet Orally Once a day; Duration: 30 day(s) Active Omeprazole 20 MG 1 capsule Orally twi ce a day Active Aspir-81 81 MG 1 tablet Orally Once a day; Duration: 30 day(s) Active Gabapentin 300 MG 1 capsule Orally Thr ee times a day Active metFORMIN HCl 500 MG 1 tablet with a dell l Orally Once a day; Duration: 30 day(s) Active Stiolto Respimat 2.5-2.5 MCG/ACT 2 puffs Inhalation Once a day Active Combivent Respimat 20-100 MCG/ACT 1 puff Inhalation prn Active dilTIAZem HCl ER Coated Beads 120 MG TAKE 1 CAPSULE BY MOUTH EVERY DAY Oral; Duration: 30 Active Immunizations Vaccine Route Administration Date [...] Problem Status W/U Status Risk Notes Problem Screening for malignant neoplasm of colon (832365756) Encounter for screening for malignant neoplasm of colon (Z12.11) Active confirmed Problem History of adenomatous polyp of colon (206935369) History of adenomatous polyp of colon (Z86.010) Active confirmed Problem Iron deficiency (16357295) Iron deficiency (E61.1) Active confirmed Problem Diverticular disease of colon (653129837) Diverticulosis of large intestine without hemorrhage (K57.30) Active confirmed Problem Preprocedural examination (073888995944312) Preprocedural examination (Z01.818) Active confirmed Problem Gastroesophageal reflux disease (190994141) Gastroesophageal reflux disease, esophagitis presence not specified (K21.9) Active confirmed Plan Of Treatment Pending Test Test Name Order Date GI BIOPSY 10/22/2018 Future Test Test Name Order Date UPPER GI ENDOSCOPY 07/15/2018 COLONOSCOPY 07/15/2018 Insurance Providers Payer Name Payer Address Payer Phone Subscriber Number Group Number Insured Name Patient Relationship to Insured Coverage Start Date Coverage End Date [place] [address] [place] [address] [phone] [id number] IRENE REBOLLAR Self - patient is the insured [employer] CLAIMS [address] [place] [phone] [id number] ANA ROSAIRENE Self - patient is the insured Medical (General) History Medical History History ICD Code Denies MT,CVA,renal disease NIDDM COPD Colonoscopy in 2006 with mul tiple tubular adenoms removed, 1 with moderate dysplasia GERD--UGI in 2016 with a hiatal hernia Neuropathy in arms and legs HTN Edema Surgical History Surgery Date(Month/Year) Right inguinal hernia repair x 2 Heel spur
== END 2024-12-13 09:42 | disposition home or self-care (01) ==
LOC: HO.HMCC 08:39
PROVIDERS: PCP Nurse Practitioner Family; Visit Provider Nurse Practitioner Family
DX: Z00.00 Encounter for general adult medical examination without abnormal findings (principal); E11.9 Type 2 diabetes mellitus without complications; E55.9 Vitamin D deficiency, unspecified; Z12.5 Encounter for screening for malignant neoplasm of prostate

== ENCOUNTER → 2024-12-13 08:38 | Outpatient (BNVA) | payer MEDICARE, SELFPAY | PROVIDERS: PCP Nurse Practitioner Family; Visit Provider Nurse Practitioner Family | DX: Z00.00 Encounter for general adult medical examination without abnormal findings (principal); E11.9 Type 2 diabetes mellitus without complications; E55.9 Vitamin D deficiency, unspecified; Z79.899 Other long term (current) drug therapy | CPT/HCPCS: 83036; 96127; 99212 ==

== ENCOUNTER 2025-01-18 08:58 | Outpatient (AMB) | payer MEDICARE, SELFPAY ==
--- OUTSIDE RECORDS SUMMARY | 2024-05-03 06:00 | XMS_ITS ---
Author Organization [facility] marguerite [place] Address [address] [place] [address] Care Team Providers Care Commercial Electrician Name Role Phone Geovani Sears Primary Care Provider Unav ailable Crow Morris Unavailable [phone] Encounters Encounter Location Date Provider Diagnosis [address] [address] 05/03/2024 Crow Morris Plan Of Treatment Next Appt Details Provider Name:Crow Morris , 03/10/2025 01:45:00 PM, [address] [place] [address], [address], Progress Notes * Cody REBOLLAR WDOB: 3 (74 yo M)Acc No.[id number]:05/03/2024 Progress Note Patient: Cody LIRA Provider: Luzmaria Morris DPM :1950 A ge:74 Y S ex:Male Date:05/03/2024 Address:[address] [place] [address] jorge alberto [id number] Pcp:LOU Sun Subjective: * Chief Complaints: * [...] 0 05/03/2024 Generated for Kirill kaplan/Merline on: 03/20/2024 04:40 PM EST
--- NOTE | 2025-01-18 09:02 | MHC.OFFVIS ---
Vital Signs 01/18/25 09:03 Height 6 ft Weight 256 lb 4 oz BMI 34.7 BP 160/82 H Blood Pressure Location Rt brachial Position Sitting Pulse 98 Pulse Source Pulse Oximeter Pulse Oximetry (%) 96 Oxygen Delivery Method Room Air Intake Visit Reasons: INP-Polyneuropathy, unspecified Intake Note: Unspecified polyneuropathy Estimating Manager Required: No Accompanied by: Self / Same As Patient Allergies No Known Allergies Allergy (Verified 01/18/25 09:03) Medication List - Last Reconciled 01/18/25 by Jennifer Galarza MD aspirin (Adult Aspirin Regimen) 81 mg PO DAILY cholecalciferol (vitamin D3) 50 mcg PO MOWEFR diltiazem HCl CD 240 mg PO BID 90 days empagliflozin (Jardiance) 10 mg PO DAILY ezetimibe 10 mg PO DAILY finasteride (Proscar) 5 mg PO DAILY 90 days hcozbjhqtmj-jlaylfmcc-oamgwbjn 100-62.5-25 mcg (Trelegy Ellipta) 2 inhalations inhalation DAILY ipratropium-albuterol 20-100 mcg/actuation (Combivent Respimat) 1 puff inhalation QID PRN ivabradine (Corlanor) 5 mg PO BID 90 days mecobal-levomefolat Ca-B6 phos 2-3-35 mg (Metanx FC) 1 cap PO BID meloxicam 15 mg PO DAILY PRN metformin 1,000 mg PO BID omeprazole 40 mg PO DAILY@0630 rosuvastatin 40 mg PO DAILY vitamin B complex 1 tab PO DAILY HPI Comments Details: 74y/o male comes here for evaluation of neuropathy. He has h/o diabetes for over 5 years now and is fairly controlled as per patients. he started having numbness tingling in his legs 8 years ago and now he has numbness in his hands a s well. He also reports weakness, difficulty using utensils, writing etc. He has discomfort but no pain .He can having some burning sensation. He has back pain - and neck pain .He was told he has 2 bulging discs. He was seen by 8 years ago- had EMG and told it was peripheral neuropathy. The symptoms have worsened in the past year - with worsening of gait. Sleep is OK [facility] Medical History Neuropathy COPD (chronic obstructive pulmonary disease) PAD (peripheral artery disease) Arrhythmia Diabetes Dyslipidemia Hyperlipidemia Inappropriate sinus tachycardia Surgical History H/O endoscopy H/O colonoscopy History of surgery Hx of hernia repair Hx of cardiac cath Family History Paternal Grandfather CAD (coronary artery disease) Father Pulmonary disease Maternal Grandmother Diabetes mellitus Social History Household Members: Children Housing: House Are you a primary foster care social worker to a significant other at home: No Do you presently have visiting nurse or other home services: No Alcohol intake: current Alcohol intake frequency: holidays/special occasions only Patient Tobacco Use Status: Former Tobacco user Tobacco use type: Cigarette e-Cigarette/Vaping Use: Never Used Second Hand Smoke Exposure: No Advance Directives Date on File: 12/14/23 service: No Current occupational status: retired Cognitive needs: No Hearing needs: No Vision needs: No Physical Exam Vital Signs: Last Vital Signs Pulse 98 01/18/25 09:03 BP 160/82 H 01/18/25 09:03 Pulse Ox 96 01/18/25 09:03 Oxygen Delivery Method Room Air 01/18/25 09:03 BMI result Body Mass Index 34.7 Const General: cooperative, healthy appearing and comfortable Nutritional Appearance: not obese Orientation/consciousness: patient oriented x3 Neuro Other: Decreased light touch, pin prick and vibration distal to knee General: patient oriented x3, gait normal, tone normal, moves all extremities and no focal motor deficits Cranial nerves: Yes Facial sensation intact/muscles of mastication intact, Yes Bilaterally intact EOM present, Yes Nystagmus not present, Yes Normal facial strength present and Yes Midline tongue present Cognition (Neuro): normal cognition Gait exam (Neuro): Normal gait present Motor exam (neuro): 5/5 motor strength present throughout and Normal motor muscle tone present throughout Deep tendon reflexes (DTR's): Right triceps reflex intensity grade: 1+, Left triceps reflex intensity grade: 1+, Rt Biceps (C5, C6): 1+, Left biceps reflex intensity grade: 1+, Right brachioradialis reflex intensity grade: 1+, Left brachioradialis reflex intensity grade: 1+, Right patellar reflex intensity grade: 2+, Left patellar reflex intensity grade: 2+, Right ankle reflex intensity grade: 0 and Left ankle reflex intensity grade: 0 Coordination: rzpihh-oc-gkvy test normal Assessment & Plan Assessment & Plan (1) Neuropathy: Code(s): G62.9 - Polyneuropathy, unspecified Category: Medical (2) Cervical neck pain with evidence of disc disease: Code(s): M50.90 - Cervical disc disorder, unspecified, unspecified cervical region Category: Medical Plan EMG NCS to evaluate his neurpathy check vit B 12 ESR JORY levels Orders: Orders NE electromyogram (EMG) Today G62.9 - Polyneuropathy, unspecified NE nerve conduction velocity Today G62.9 - Polyneuropathy, unspecified Erythrocyte Sedimentation Rate Today G62.9 - Polyneuropathy, unspecified JORY Reflex Titer and Pattern Today G62.9 - Polyneuropathy, unspecified Vitamin B12 and Folate Today G62.9 - Polyneuropathy, unspecified Homocysteine Today G62.9 - Polyneuropathy, unspecified Medications: New mecobal-levomefolat Ca-B6 phos 2-3-35 mg (Metanx FC) 1 cap PO BID 60 caps 8RF Coding Level of Care Code New Pt Level 4 (80560) Complex EM visit Add On G2211 Diagnoses Neuropathy G62.9 Cervical neck pain with evidence of disc disease M50.90
[2025-01-18 09:03] VITALS: BP 160/82; PULSE 98; O2SAT 96; BMI 34.7
--- OUTSIDE RECORDS SUMMARY | 2025-01-18 16:40 | XMS_ITS | Encounter Summary ---
Author Organization [facility] Address [address] [place] [address] [address] [place] [address] Phone Care Team Providers Care Manager Imaging Name Role Phone Geovani Samayoa BALL WARPER TENDER Primary Care Provider + Encounter Details Date Type Department Care Team (Latest Contact Info) Description 02/05/2023 Ancillary Orders [facility] [address] [place] [address] 3rd Floor, [address] [place] [address] MD [address] [facility], [facility] [address] [place] [address] [email or web address] Dyspnea, unspecified type (Primary Dx) [...] Description 04/03/2025 10:40 AM EST Office Visit [facility] [address] Floor, [address] [place] [address] Raji Thurman MD, [place] [address] [facility] [address] [place] [address] [email or web address] documented as of this encounter Results * [...] type documented in this encounter Care Teams Manager Imaging Relationship Specialty Start Date End Date Geovani Samayoa NP [facility] [place] [address] PCP - General Family Medicine 01/09/22 documented as of this encounter Additional Source Comments The information contained in this document represents components of the legal health record. It is not the complete legal health record.[facility]
--- OUTSIDE RECORDS SUMMARY | 2025-01-18 16:40 | XMS_ITS | Encounter Summary ---
Author Organization [facility] Address [address] [place] [address] Phone Care Team Providers Care Principal Librarian Name Role Phone Geovani Samayoa MEDICAL TYPIST Primary Care Provider + Encounter Details Date Type Department Care Team (Late st Contact Info) Description 02/09/2023 Transcribe Orders [facility] [address] [place] [address] MD [address] [facility], [address] [place] [address] [email or web address] Social History Tobacco Use Types Packs/Day Years [...] Description 04/03/2025 10:40 AM EST Office Visit [facility] [address] Floor, [address] [place] [address] Raji Thurman MD, MS [address] [facility], [address] [place] [address] [email or web address] documented as of this encounter Visit Diagnoses Not on filedocumented in this encounter Care Teams Principal Librarian Relationship Specialty Start Date End Date Geovani Samayoa NP [facility] [place] [address] PCP - General Family Medicine 01/09/22 documented as of this encounter Additional Source Comments The information contained in this document represents components of the legal health record. It is not the complete legal health record.[facility]
--- OUTSIDE RECORDS SUMMARY | 2025-01-18 16:40 | XMS_ITS | Clinical Summary ---
Author Organization [facility] Address [address] [place] [address] [place] [address] Phone Care Team Providers Care Client Care Coordinator Name Role Phone Geovani Samayoa HEAD BAKER Primary Care Provider + Allergies No known active allergies Medications dilTIAZem (CARDIZEM CD) 120 MG 24 hr capsule Take 240 mg by mouth daily. Active meloxicam (MOBIC) 15 MG tablet meloxicam 15 mg tablet Active tiotropium-olo dateroL 2.5-2.5 mcg/actuation Mist Stiolto Respimat 2.5 mcg-2.5 mcg/actuation solution for inhalation INHALE 2 PUFFS BY MOUTH EVERY DAY Active omeprazole (PRILOSEC) 40 MG capsule omeprazole 40 mg capsule,delayed release Active metFORMIN (GLUCOPHAGE) 500 MG tablet Take 500 mg by mouth 2 (two) times a day with meals. Active LORazepam (ATIVAN) 1 MG tablet lorazepam 1 mg tablet Active lisinopril (PRINIVIL,ZEST RIL) 5 MG tablet lisinopril 5 mg tablet Active ketoconazole (NIZORAL) 2 % shampoo ketoconazole 2 % shampoo Active guaiFENesin (MUCINEX) 600 mg ER biphasic tablet every other day. Act alejandro furosemide (LASIX) 40 MG tablet Active ergocalciferol (DRISDOL) 50,000 unit capsule ergocalciferol (vitamin D2) 1,250 mcg (50,000 unit) capsule TAKE ONE CAPSULE BY MOUTH ONE TIME PER WEEK Active DULoxetine (CYMBALTA) 20 MG capsule duloxetine 20 mg capsule,delayed release Active pravastatin (PRAVACHOL) 80 MG tablet Take 80 mg by mouth daily. Active ferrous sulfate 325 mg (65 mg salamatof iron) tablet Take 325 mg by mouth daily with breakfast. Active cholecalcifero l (VITAMIN D3) 5,000 unit tablet Take 1,000 Units by mouth daily. Every other day Active aspirin 81 mg chewable tablet Take 81 mg by mouth daily. Active rosuvastatin (CRESTOR) 40 MG tablet Take 40 mg by mouth daily. Active tiotropium bromide (SPIRIVA RESPIMAT) 2.5 mcg/actuation mist for inhalation Inhale 2 puffs into the lungs daily. 3 each 3 1 Active Additional Information Patient not taking.Reported on 09/27/2024 ivabradine (CORLANOR) 5 mg tablet Take by mouth 2 (two) times a day. Active calcipotriene (CALCITRENE) 0.005 % ointment 3 Active fluocinonide 0.05 % ointment APPLY TO AFFECTED AREA ON LEGS TWICE A DAY NEEDED FOR FLARES 3 Active betamethasone, augmented, (DIPROLENE AF) 0.05 % cream APPLY TO ITCHY AREAS ON LEGS AND ARMS TWICE A DAY NEEDED FOR FLARES, DECREASE SYMPTOMS IMPROVE 3 Active tacrolimus (PROTOPIC) 0.1 % ointment 4 Active amoxicillin-cl avulanate (AUGMENTIN) 875-125 mg per tablet 4 Active JARDIANCE 10 mg tablet Half tab daily 4 Active finasteride (PROSCAR) 5 mg tablet 4 Active tamsulosin (FLOMAX) 0.4 mg Cap 4 Active ipratropium-al buteroL (COMBIVENT RESPIMAT) 20-100 mcg/actuation MistIndication s:Medication refill Inhale 1 puff into the lungs as needed. 12 g 3 4 Active ipratropium-al buteroL (COMBIVENT RESPIMAT) 20-100 mcg/actuation MistIndication s:Medication refill Inhale 1 puff into the lungs every 6 (six) hours as needed. 12 g 3 4 Active ezetimibe (ZETIA) 10 mg tablet Take 1 tablet by mouth every morning. 5 Active verapamiL (VERELAN) 240 MG 24 hr capsule Oral for 90 Active b complex vitamins capsule as directed Orally A ctive fluticasone-um eclidin-vilant er (TRELEGY ELLIPTA) 100-62.5-25 mcg inhalation powder USE 1 INHALATION BY MOUTH DAILY 3 each 3 5 Active Active Problems Problem Noted Date Diagnosed Date Rheumatic aortic stenosis 09/15/2019 COPD type B 09/15/2019 Encounters Date Type Department Care Team Description 10/22/2024 Refill [facility] [address] [facility] 3rd Floor, [address] [place] [address] MD Medication Refill from Last 3 Months Immunizations Immunization Administration Dates Next Due COVID-19 (Pre-12/22) Pfizer Vaccine, mRNA, PF Influenza High-Dose Trivalent Preservative Free IM 11/24/2018,12/31/2017 Influenza Quadrivalent Preservative Free IM 1203/2019 Pneumococcal conjugate PCV13 03/30/2017 Family History Medical [...] Description 04/03/2025 10:40 AM EST Office Visit [facility] [address] [facility] 3rd Floor, [address] [place] [address] Raji Thurman MD, MS [address] [facility], [address] [place], [place] [id number] [email or web address] Health Maintenance Due Date Last Done Comments Adult Td,Tdap Booster 1952 CREATININE LEVEL 1952 LIPID PANEL 1952 POTASSIUM LEVEL 1952 DEPRESSION SCREENING 1964 SMOKING Hx and SMOKELESS TOBACCO SCREENING 1965 HEPATITIS C SCREENING 1970 COLOGUARD 1997 COLONOSCOPY 1997 COLORECTAL CANCER SCREENING 1997 FIT TEST 1997 FOBT 1997 SIGMOIDOSCOPY 1997 VIRTUAL COLONOSCOPY 1997 RSV VACCINE (1 - Risk 50-74 years 1-dose series) 2002 ZOSTER VACCINES (1 of 2) 2002 ABDOMINAL AORTIC ANEURYSM (AAA) SCREENING 2017 PNEUMOCOCCAL VACCINES (50+ years) (2 of 2 - PPSV23, PCV20, or PCV21) 05/25/2017 03/30/2017 INFLUENZA VACCINE (#1) 2024 , [...] file Insurance MEDICARE PART A & B [employer]EX SUPPLEMENT MEDICARE PART A & B [employer] MEDEX SUPPLEMENT MEDICARE PART A & B [employer] MEDEX SUPPLEMENT MEDICARE PART A & B [place] [employer] MED[employer] SUPPLEMENT MEDICARE PART A & B [place] [employer] SUPPLEMENT MEDICARE PART A & B [employer] MEDEX SUPPLEMENT MEDICARE PART A & B [employer] MEDEX SUPPLEMENT MEDICARE PART A & B [employer] MEDEX SUPPLEMENT MEDICARE PART A & B [place] MEDEX SUPPLEMENT Care Teams Client Care Coordinator Relationship Specialty Start Date End Date Geovani Samayoa NP [address] [place] [id number] PCP - General Family Medicine 01/09/22 Additional Source Comments The information contained in this document represents components of the legal health record. It is not the complete legal health record.[facility]
--- OUTSIDE RECORDS SUMMARY | 2025-01-18 16:41 | XMS_ITS | Patient Health Record ---
Author Organization [facility] Address [address] [facility] [place] [address] Care Team Providers Care Ventilation Worker Name Role Phone Geovani Sears Primary Care Provider Unav ailable Crow Morris Unavailable [phone] Allergies No Known Allergies Results Component Value [...] Problem Acquired hammer toe of right foot (5300608836407420 ) Other hammer toe(s) (acquired), right foot (M20.41) Active confirmed Response to treatment, Improvemen t Problem Acquired hammer toe of left foot (4617527263031131 ) Other hammer toe(s) (acquired), left foot (M20.42) Active confirmed Response to treatment, Improvemen t Problem Polyneuropathy due to type 2 diabetes mellitus (742924168) Type 2 diabetes mellitus with diabetic polyneuropathy (E11.42) Active confirmed Vital Signs Blood pressure diastolic 65 mm Hg 11/18/2024 Height 6 ft in 11/18/2024 Blood pressure systolic 126 mm Hg 11/18/2024 Weight 245 lbs 11/18/2024 BMI 33.22 kg/m2 11/18/2024 Procedures Procedure Date Ordered Date Performed Result Body Sit e 32087-CDMHNNO NAIL, 6 OR MORE 02/02/2024 N/A 47413-QSUN SKIN LESIONS, 2 TO 4 02/02/2024 N/A 82795-VUKRLAJ NAIL, 6 OR MORE 05/13/2024 N/A 72329-UCOJ SKIN LESIONS, 2 TO 4 05/13/2024 N/A 83169- Removal of Foreign Body, Subcut 05/13/2024 N/A 41554-TBFUQMQ NAIL, 6 OR MORE 08/16/2024 N/A 55512-EOGW SKIN LESIONS, 2 TO 4 08/16/2024 N/A 76911-UWCNSGP NAIL, 6 OR MORE 11/18/2024 N/A 72298-EOGU SKIN LESIONS, 2 TO 4 11/18/2024 N/A Encounters Encounter Location Date Provider Diagnosis [address] [address] 02/02/2024 Crow Morris Type 2 diabetes mellitus with diabetic polyneuropathy E11.42 and Tinea unguium B35.[address] [address] 05/13/2024 Crowerin Morris Type 2 diabetes mellitus with diabetic polyneuropathy E11.42 ; Tinea unguium B35.1 ; Other hammer toe(s) (acquired), right foot M20.41 ; Other hammer toe(s) (acquired), left foot M20.42 and Puncture wound with foreign body, right foot, initial encounter S91.341A [address] [address] 08/16/2024 Crowerin Morris Type 2 diabetes mellitus with diabetic polyneuropathy E11.42 and Tinea unguium B35.1 [facility] [address] [place] [address] 11/18/2024 Crow Morris Type 2 diabetes mellitus with diabetic polyneuropathy E11.42 and Tinea unguium B35.[address] [address] 05/03/2024 Crow Morris Assessments Encounter Date Diagnosis [...] Treatment Pending Test Test Name Order Date 54851-IDMUHRX NAIL, 6 OR MORE 11/03/2023 83267-VAJPFHT NAIL, 6 OR MORE 02/02/2024 03448-MRCSXXT NAIL, 6 OR MORE 05/13/2024 87438-GHFTSHE NAIL, 6 OR MORE 08/16/2024 10555-OPCBUWT NAIL, 6 OR MORE 11/18/2024 23764-Fdjmbjsz Plate 11/03/2023 94961- Debride <25 sq cm 07/23/2018 81936 I&D ABSCESS- SIMPLE,SINGLE 019 63194-LETD SKIN LESIONS, 2 TO 4 11/03/19 24 86893-HTSX SKIN LESIONS, 2 TO 4 05/14/19 25 82198-LBWG SKIN LESIONS, 2 TO 4 02/02/20 24 67729-YNPV SKIN LESIONS, 2 TO 4 11/19/19 25 04100-FVWF SKIN LESIONS, 2 TO 4 08/17/19 07668- Removal of Foreign Body, Subcut 0 05/13/2024 Next Appt Details Provider Name:Crow Isela Morris , 03/10/2025 01:45:00 PM, [address] [place], [address], Insurance Providers Payer Name Payer Address Payer Phone Subscriber Number Group Number Insured Name Patient Relationship to Insured Coverage Start Date Coverage End Date Medicare National Govt [facility] [address] [place] [address] [id number] Cody Rebollar Self - patient is the insured 7 [employer] Blue [employer] [address] [place] [address] [id number] Cody Rebollar Self - patient is the [...] Repair 2000 Hospitalization History Reason Date(Month/Year) [facility] [place]rowing up blood 04/2023
--- OUTSIDE RECORDS SUMMARY | 2025-01-18 16:41 | XMS_ITS | Patient Health Record ---
Author Organization [facility] Address [address] [place] [address] Care Team Providers Care Studio Director Name Role Phone PAOLO SAMAYOA Primary Care Provider Raji Salas Unavailable [phone] Allergies Allergen (clinical drug ingredient) Drug/Non Drug Allergy documented on EMR Reaction Allergy Type Onset Date Status Aloe Aftersun Unknown Drug Allergy Act alejandro Results Component Value Reference Range Flag Notes Complete Blood Count Auto Di ff Reviewed date:05/05/2024 10:11:31 AM Interpretation: Performing Lab:[facility], [address] [place] [phone] Notes/Report: White Blood Count 10.5 4.8-10.8 X10*3/uL N Red Blood Count 5.02 4.60-5.80 X10*6/uL N Hemoglobin 14.3 14.0-18.0 g/dl N Hematocrit 45.8 42.0-52.0 % N Mean Corpuscular Volume 91.2 80.0-98.0 fL N Mean Corpuscular Hemoglobin 28.5 27.0-33.0 pg N Mean Corpuscular HGB Conc 31.2 31.0-36.0 g/dl N Red Cell Distribution Width 14.6 11.0-16.0 % N Platelet Count 214 160-400 X10*3/uL N Mean Platelet Volume 9.9 9.4-12.4 fL N Neutrophils Percent Auto 77.4 45-73 % H Imm Gran Pct Auto 0.4 0.0-0.4 % N Lymphocytes Percent Auto 14.7 20-40 % L Monocytes Percent Auto 5.6 2-11 % N Eosinophils Percent Auto 1.0 0-4 % N Basophils Percent Auto 0.9 0-2 % N NRBC Pct Auto 0.0 0.0-0.2 /100WBC N Neutrophils Absolute Auto 8.1 2.0-8.3 x10*3/uL N Imm Gran Abs Auto 0.04 0.00-0.03 X10*3/uL H Lymphocytes Absolute Auto 1.6 1.2-4.9 X10*3/uL N Monocytes Absolute Auto 0.6 0.1-1.2 X10*3/uL N Eosinophils Absolute Auto 0.1 0.0-0.4 X10*3/uL N Basophils Absolute Auto 0.1 0.0-0.2 X10*3/uL N NRBC Abs Auto 0.000 0.0-0.012 X10*3/uL N Complete Blood Count Auto Di ff Reviewed date:05/05/2024 10:10:45 AM Interpretation: Performing Lab:[facility], [address] [place] [phone] Notes/Report: White Blood Count 8.9 4.8-10.8 X10*3/uL N Red Blood Count 4.35 4.60-5.80 X10*6/uL L Hemoglobin 12.6 14.0-18.0 g/dl L Hematocrit 39.2 42.0-52.0 % L Mean Corpuscular Volume 90.1 80.0-98.0 fL N Mean Corpuscular Hemoglobin 29.0 27.0-33.0 pg N Mean Corpuscular HGB Conc 32.1 31.0-36.0 g/dl N Red Cell Distribution Width 14.4 11.0-16.0 % N Platelet Count 230 160-400 X10*3/uL N Mean Platelet Volume 9.6 9.4-12.4 fL N Neutrophils Percent Auto 76.0 45-73 % H Imm Gran Pct Auto 0.3 0.0-0.4 % N Lymphocytes Percent Auto 14.1 20-40 % L Monocytes Percent Auto 6.4 2-11 % N Eosinophils Percent Auto 2.2 0-4 % N Basophils Percent Auto 1.0 0-2 % N NRBC Pct Auto 0.0 0.0-0.2 /100WBC N Neutrophils Absolute Auto 6.8 2.0-8.3 x10*3/uL N Imm Gran Abs Auto 0.03 0.00-0.03 X10*3/uL N Lymphocytes Absolute Auto 1.3 1.2-4.9 X10*3/uL N Monocytes Absolute Auto 0.6 0.1-1.2 X10*3/uL N Eosinophils Absolute Auto 0.2 0.0-0.4 X10*3/uL N Basophils Absolute Auto 0.1 0.0-0.2 X10*3/uL N NRBC Abs Auto 0.000 0.0-0.012 X10*3/uL N Pathology Reviewed date:05/09/2024 06:04:55 PM Interpretation: Performing Lab:[facility], [address] [place] [phone] Notes/Report: CT angio abdomen Reviewed date:05/05/2024 10:11:09 AM Interpretation: Performing Lab: Notes/Report: [address] [address] [address] Scan Report Signed with Addenda Patient: Irene Rebollar MR#: [id number] 63 : 1950 Acct:[id number] Age/Sex: 74 / M ADM Date: 05/03/24 Loc: .S3 372-[address]: Cristiano Serrano MD Ordering Physician: Raji Tellez MD Date of Service: 05/04/24 Procedure(s): CT angio abdomen Accession Number(s): [id number] cc: Paolo Samayoa [facility]-; Raji Tellez MD Report Number: [id number]: Total DLP = 2273.00 mGy-cm ADDENDUM This document has been electronically signed by: Gregory Garcia MD on 05/04/2024 18:44:57 ADDENDUM: This report was discussed with Pam Ledezma RN on May 04, 2024 18:51:00 EST. This document has been electronically signed by: Adri Garcia on 05/04/2024 18:52:07 Addendum Dictated By: Gregory Garcia MD Addendum Signed By: <Electronically signed by Gregory Garcia MD in OV> [id number] Addendum Cosigned By: DD/ /25/1843 TD/TT: 05/04/2407/25/1851 [...] in OV> 05/04/241845 DD/ 43 TD/TT: 05/04/241843 Manager Lab: Complete Blood Count Auto Di ff Reviewed date:05/05/2024 05:48:11 PM Interpretation: Performing Lab:[facility], [address] [place] [phone] Notes/Report: White Blood Count 8.3 4.8-10.8 X10*3/uL N Red Blood Count 4.11 4.60-5.80 X10*6/uL L Hemoglobin 11.9 14.0-18.0 g/dl L Hematocrit 37.0 42.0-52.0 % L Mean Corpuscular Volume 90.0 80.0-98.0 fL N Mean Corpuscular Hemoglobin 29.0 27.0-33.0 pg N Mean Corpuscular HGB Conc 32.2 31.0-36.0 g/dl N Red Cell Distribution Width 14.6 11.0-16.0 % N Platelet Count 215 160-400 X10*3/uL N Mean Platelet Volume 9.9 9.4-12.4 fL N Neutrophils Percent Auto 67.5 45-73 % N Imm Gran Pct Auto 0.4 0.0-0.4 % N Lymphocytes Percent Auto 21.0 20-40 % N Monocytes Percent Auto 7.1 2-11 % N Eosinophils Percent Auto 2.9 0-4 % N Basophils Percent Auto 1.1 0-2 % N NRBC Pct Auto 0.0 0.0-0.2 /100WBC N Neutrophils Absolute Auto 5.6 2.0-8.3 x10*3/uL N Imm Gran Abs Auto 0.03 0.00-0.03 X10*3/uL N Lymphocytes Absolute Auto 1.7 1.2-4.9 X10*3/uL N Monocytes Absolute Auto 0.6 0.1-1.2 X10*3/uL N Eosinophils Absolute Auto 0.2 0.0-0.4 X10*3/uL N Basophils Absolute Auto 0.1 0.0-0.2 X10*3/uL N NRBC Abs Auto 0.000 0.0-0.012 X10*3/uL N Hold Green Gel Reviewed date:05/05/2024 06:02:20 PM Interpretation: Performing Lab:[facility], [address] [place] [phone] Notes/Report: Hold Green Gel See Note Specimen held untested for 24 hours; Call to request Chemistry testing. Reason For Referral No Information Medications Medication SIG (Take, Route, Frequency, Duration) Notes Start Date End Date Status Lasix 40 MG Tablet 1 tablet Orally Once a day; Duration: 30 day(s) Active Vitamin D (Ergocalciferol) 90753 UNIT Capsule as directed Oral twice a week Active Meloxicam 15 MG Tablet 1 tablet Orally O nce a day; Duration: 30 day(s) Active Omeprazole 20 MG Capsule Delayed Release 1 capsule Orally twice a day Active Aspir-81 81 MG Tablet Delayed Release 1 tablet Orally Once a day; Duration: 30 day(s) Active Gabapentin 300 MG Capsule 1 capsule Oral ly Three times a day Active metFORMIN HCl 500 MG Tablet 1 tablet with a meal Orally Once a day; Duration: 30 day(s) Active Stiolto Respimat 2.5-2.5 MCG/ACT Aerosol Solution 2 puffs Inhalation Once a day Active Combivent Respimat 20-100 MCG/ACT Aerosol Solution 1 puff Inhalation prn Active dilTIAZem HCl ER Coated Beads 120 MG Capsule Extended Release 24 Hour TAKE 1 CAPSULE BY MOUTH EVERY DAY Oral; Duration: 30 Active Immunizations Vaccine Route Administration Date Status Comme nts Influenza Unknown 01/05/2018 Administered Social History Tobacco Use: Social History Observation Description Date Details (start date - stop date) Former Smoker NA - NA Social History Drugs/Alcohol: Social Info Question Answer Notes Alcohol Screen Did you have a drink containing alcohol in the past year? Yes How often did you have a drink containing alcohol in the past year? Monthly or less (1 point) How many drinks did you have on a typical day when you were drinking in the past year? 1 or 2 drinks (0 point) How often did you have 6 or more drinks on one occasion in the past year? Never (0 point) Points 1 Interpretation Negative Tobacco Use: Social Info Question Answer Notes Tobacco Use/Smoking Patient is a former smoker How long has it been since you last smoked? 5-10 years Additional Details Category Social Info Options Details Miscellaneous: Marital status: Occupation: retired Section Notes: Nonsmoker x 5 years; no sig alcohol Problems Problem Type SNOMED Code ICD Code Onset Dates Problem Status W/U Status Risk Notes Problem Screening for malignant neoplasm of colon (654362035) Encounter for screening for malignant neoplasm of colon (Z12.11) Active confirmed Problem History of adenomatous polyp of colon (823103802) History of adenomatous polyp of colon (Z86.010) Active confirmed Problem Iron deficiency (81475777) Iron deficiency (E61.1) Active confirmed Problem Diverticular disease of colon (136057388) Diverticulosis of large intestine without hemorrhage (K57.30) Active confirmed Problem Preprocedural examination (407168305607484) Preprocedural examination (Z01.818) Active confirmed Problem Gastroesophageal reflux disease (677965593) Gastroesophageal reflux disease, esophagitis presence not specified [...] OF [place] [address] [place] [address] [phone] [id number] IRENE REBOLLAR Self - patient is the insured [employer] ATT[employer] CLAIMS [address] [place] [address] [id number] IRENE REBOLLAR Self - patient is the insured Medical (General) History Medical History History ICD Code Denies ID,CVA,renal disease NIDDM COPD Colonoscopy in 2006 with mul tiple tubular adenoms removed, 1 with moderate dysplasia GERD--UGI in 2015 with a hiatal hernia Neuropathy in arms and legs HTN Edema Surgical History Surgery Date(Month/Year) Right inguinal hernia repair x 2 Heel spur
--- OUTSIDE RECORDS SUMMARY | 2025-01-18 16:42 | XMS_ITS | Encounter Summary ---
Author Organization [facility] Address [address] [place] [address] Phone Care Team Providers Care Sugar Plantation Manager Name Role Phone Geovani Samayoa SCORER HELPER Primary Care Provider + Encounter Details Date Type Department Care Team (Late st Contact Info) Description 02/16/2024 Procedure Pass [facility], Ct Scan - [address] [address] Social History Tobacco Use Types Packs/Day Years [...] Description 04/03/2025 10:40 AM EST Office Visit [facility] [address] [facility] 3rd Floor, [address] [place] [address] Raji Thurman MD, MS [address] [facility], [address] [place] [address] [email or web address] documented as of this encounter Visit Diagnoses Not on filedocumented in this encounter Care Teams Sugar Plantation Manager Relationship Specialty Start Date End Date Geovani Samayoa NP [address] [place] [address] PCP - General Family Medicine 01/09/22 documented as of this encounter Additional Source Comments The information contained in this document represents components of the legal health record. It is not the complete legal health record.[facility]
--- OUTSIDE RECORDS SUMMARY | 2025-01-18 16:42 | XMS_ITS | Encounter Summary ---
Author Organization [facility] Address [address] [place] [address] Phone Care Team Providers Care Internal Combustion Engineer Name Role Phone Bk St MD Primary Care Provider [phone] Unknown, Unknown Primary Care Provider Geovani Sorenson CHILD CARE ATTENDANT Primary Care Provider + Encounter Details Date Type Department Care Team (Late st Contact Info) Description 07/10/2017 Ancillary Orders Virtual Department [address] [place] [address] MD [address] [facility], [address] [address] [email or web address] Atelect[employer] Social History Tobacco Use Types Packs/Day [...] Description 04/03/2025 10:40 AM EST Office Visit [facility] [address] [place] [address] [address]rd Floor, [address] [place] [address] Raji Thurman MD, MS [address] [facility], [address] [address] [email or web address] documented as of this encounter Results * [...] collapse documented in this encounter Care Teams Internal Combustion Engineer Relationship Specialty Start Date End Date Bk St MD [address] [place] [address], [address] [place] [address] [email or web address] PCP - General Pulmonary Disease 07/13/17 01/07/21 Unknown, Unknown, PCP - General 01/08/21 01/08/22 Geovani Samayoa NP [address] [place] [address] [place] [address] PCP - General Family Medicine 01/09/22 documented as of this encounter Additional Source Comments The information contained in this document represents components of the legal health record. It is not the complete legal health record.[facility]
--- OUTSIDE RECORDS SUMMARY | 2025-01-18 16:42 | XMS_ITS | Encounter Summary ---
Author Organization [facility] Address [address] [facility] [address] [place] [address] Phone Care Team Providers Care Claims Account Manager Name Role Phone Bk St MD Primary Care Provider [phone] Unknown, Unknown Primary Care Provider Geovani Sorenson POLICE OFFICER BOOKING Primary Care Provider + Encounter Details Date Type Department Care Team (Late st Contact Info) Description 07/10/2017 Procedure Pass [facility], Ct Scan - [address] [address] Social History Tobacco Use Types Packs/Day Years [...] Description 04/03/2025 10:40 AM EST Office Visit [facility] [address] [facility] 3rd Floor, [address] [place], [place] [id number] Raji Thurman MD, MS [address] [facility], [address] [place] [address] [email or web address] documented as of this encounter Visit Diagnoses Not on filedocumented in this encounter Care Teams Claims Account Manager Relationship Specialty Start Date End Date Bk St MD [facility], [address] [place] [address] [email or web address] PCP - General Pulmonary Disease 07/13/17 01/07/21 Unknown, Unknown, PCP - General 01/08/21 01/08/22 Geovani Samayoa NP [address] [place] [address] [place] [address] PCP - General Family Medicine 01/09/22 documented as of this encounter Additional Source Comments The information contained in this document represents components of the legal health record. It is not the complete legal health record.[facility]
--- OUTSIDE RECORDS SUMMARY | 2025-01-18 16:42 | XMS_ITS | Encounter Summary ---
Author Organization [facility] Address [address] [place] [address] Phone Care Team Providers Care Military Cook Name Role Phone Geovani Samayoa NURSING PROGRAM DIRECTOR Primary Care Provider + Encounter Details Date Type Department Care Team (Late st Contact Info) Description 02/04/2023 Procedure Pass [facility], Ct Scan - [address] [address] Social History Tobacco Use Types Packs/Day Years [...] Description 04/03/2025 10:40 AM EST Office Visit [facility] [address] [facility] 3rd Floor, [address] [place] [address] Raji Thurman MD, MS [address] [facility], [address] [place] [address] [email or web address] documented as of this encounter Visit Diagnoses Not on filedocumented in this encounter Care Teams Military Cook Relationship Specialty Start Date End Date Geovani Samayoa NP [address] [place] [address] PCP - General Family Medicine 01/09/22 documented as of this encounter Additional Source Comments The information contained in this document represents components of the legal health record. It is not the complete legal health record.[facility]
== END 2025-01-18 10:07 | disposition home or self-care (01) ==
LOC: HO.HSMS 08:59
PROVIDERS: PCP Nurse Practitioner Family; Visit Provider Psychiatry & Neurology Neurology
DX: G62.9 Polyneuropathy, unspecified (principal); M50.90 Cervical disc disorder, unspecified, unspecified cervical region
CPT/HCPCS: 99204; G2211

== ENCOUNTER → 2025-01-18 08:58 | Outpatient (BNVA) | payer MEDICARE, SELFPAY | PROVIDERS: PCP Nurse Practitioner Family; Visit Provider Psychiatry & Neurology Neurology | DX: G62.9 Polyneuropathy, unspecified (principal); M50.90 Cervical disc disorder, unspecified, unspecified cervical region | CPT/HCPCS: 99202 ==

== ENCOUNTER 2025-01-25 08:21 | Outpatient (REF) | payer MEDICARE, SELFPAY ==
--- OUTSIDE RECORDS SUMMARY | 2024-05-03 06:00 | XMS_ITS ---
Author Organization [facility] marguerite [place] Address [address] [place] [address] Care Team Providers Care Airborne Electronics Analyst Name Role Phone Geovani Sears Primary Care Provider Unav ailable Crow Morris Unavailable [phone] Encounters Encounter Location Date Provider Diagnosis [address] [address] 05/03/2024 Crow Morris Plan Of Treatment Next Appt Details Provider Name:Crow Morris , 03/10/2025 01:45:00 PM, [address] [place] [address], [address], Progress Notes * Cody REBOLLAR WDOB: 3 (74 yo M)Acc No.[id number]:05/03/2024 Progress Note Patient: Cody LIRA Provider: Luzmaria Morris DPM :1950 A ge:74 Y S ex:Male Date:05/03/2024 Address:[address] [place] [address] jorge alberto [id number] Pcp:LOU Sun Subjective: * Chief Complaints: * [...] 0 05/03/2024 Generated for Kirill kaplan/Merline on: 03/27/2024 08:40 AM EST
--- OUTSIDE RECORDS SUMMARY | 2025-01-25 08:41 | XMS_ITS | Clinical Summary ---
Author Organization [facility] Address [address] [place] [address] [place] [address] Phone Care Team Providers Care Airplane Engineer Name Role Phone Geovani Samayoa TUFTING MACHINE FIXER Primary Care Provider + Allergies No known [...] Active ferrous sulfate 325 mg (65 mg muscogee iron) tablet Take 325 mg by mouth [...] Encounters Date Type Department Care Team Description 01/19/2025 Telephone [facility] [address] [facility] 3rd Floor, [address] [place] [address] MD from Last 3 Months Immunizations Immunization Administration Dates Next Due COVID-19 (Pre-12/22) Pfizer Vaccine, mRNA, PF Influenza High-Dose Trivalent Preservative Free IM 11/24/2018,12/31/2017 Influenza Quadrivalent Preservative Free IM 03/2019 Pneumococcal conjugate PCV13 03/30/2017 Family History [...] Care Team (Late st Contact Info) Description 04/18/2025 11:00 AM EST Office Visit [facility] [address] [place] [address] 3rd Floor, [address] [place] [address] MD [address] [facility], [address] [place] [address] [email or web address] Due Date Last Done Comments [...] file Insurance MEDICARE PART A & B [employer] MEDEX SUPPLEMENT MEDICARE PART A & B [employer] MEDEX SUPPLEMENT MEDICARE PART A & [place] [address] [place] [address] MEDEX SUPPLEMENT MEDICARE PART A & B [employer] MEDEX SUPPLEMENT MEDICARE PART A & B [employer] MEDEX SUPPLEMENT MEDICARE PART A & B Member Subscriber Plan / Payer (Ef fective 2016-Present) Name:Irene Rebollar Member ID:[id number] Relation to Subscriber:Self Name:Irene Rebollar Subscriber ID:[id number] Payer ID:[id number] Group ID:Not on file Type:Medicare Address: [employer] [address] [place] [phone] [employer] CROSS MEDEX SUPPLEMENT MEDICARE PART A & B [employer] MEDEX SUPPLEMENT MEDICARE PART A & B [employer] CROSS MEDEX SUPPLEMENT MEDICARE PART A & B [employer] CROSS MEDEX SUPPLEMENT Care Teams Airplane Engineer Relationship Specialty Start Date End Date Geovani Samayoa NP [address] [facility] [address] [place] [id number] PCP - General Family Medicine 01/09/22 Additional Source Comments The information contained in this document represents components of the legal health record. It is not the complete legal health record.[facility]
--- OUTSIDE RECORDS SUMMARY | 2025-01-25 08:41 | XMS_ITS | Encounter Summary ---
Author Organization [facility] Address [address] [address] [place] [address] Phone Care Team Providers Care Salon Receptionist Name Role Phone Geovani Samayoa SIGNS SALES REPRESENTATIVE Primary Care Provider + Encounter Details Date Type Department Care Team (Late st Contact Info) Description 02/09/2023 Transcribe Orders [facility] [address] [place] [address] MD [address] [facility], [address] [place] [address] [email or web address] Social History Tobacco Use Types Packs/Day Years [...] Description 04/18/2025 11:00 AM EST Office Visit [facility] [address] [facility] 3rd Floor, [address] [place] [address] MD [address] [facility], [address] [place] [address] [email or web address] documented as of this encounter Visit Diagnoses Not on filedocumented in this encounter Care Teams Salon Receptionist Relationship Specialty Start Date End Date Geovani Samayoa NP [facility] [place] [address] PCP - General Family Medicine 01/09/22 documented as of this encounter Additional Source Comments The information contained in this document represents components of the legal health record. It is not the complete legal health record.[facility]
--- OUTSIDE RECORDS SUMMARY | 2025-01-25 08:41 | XMS_ITS | Encounter Summary ---
Author Organization [facility] Address [address] [place] [address] [address] [place] [address] Phone Care Team Providers Care It Training Specialist Name Role Phone Geovani Samayoa C D REACTOR OPERATOR Primary Care Provider + Encounter Details Date Type Department Care Team (Late st Contact Info) Description 02/16/2024 Procedure Pass [facility], Ct Scan - [address] [address] Social History Tobacco Use Types Packs/Day Years [...] Description 04/18/2025 11:00 AM EST Office Visit [facility] [address] [place] [address] 3rd Floor, [address] [place] [address] MD [address] [facility], [address] [place] [address] [email or web address] documented as of this encounter Visit Diagnoses Not on filedocumented in this encounter Care Teams It Training Specialist Relationship Specialty Start Date End Date Geovani Samayoa NP [address] [facility] [place] [address] PCP - General Family Medicine 01/09/22 documented as of this encounter Additional Source Comments The information contained in this document represents components of the legal health record. It is not the complete legal health record.[facility]
--- OUTSIDE RECORDS SUMMARY | 2025-01-25 08:41 | XMS_ITS | Patient Health Record ---
Author Organization [facility] Address [address] [place] [address] Care Team Providers Care Continuing Education Director Name Role Phone PAOLO SAMAYOA Primary Care Provider Raji Salas [phone] Allergies Allergen (clinical drug ingredient) Drug/Non Drug Allergy documented on EMR Reaction Allergy Type Onset Date Status Aloe Aftersun Unknown Drug Allergy Act alejandro Results Component Value Reference Range Flag Notes Pathology Reviewed date:05/09/2024 06:04:55 PM Interpretation: Performing Lab:[facility], [address] [place] [phone] Notes/Report: Hold Green Gel Reviewed date:05/05/2024 06:02:20 PM Interpretation: Performing Lab:[facility], [address] [place] [phone] Notes/Report: Hold Green Gel See Note Specimen held untested for 24 hours; Call to request Chemistry testing. Complete Blood Count Auto Di ff Reviewed date:05/05/2024 05:48:11 PM Interpretation: Performing Lab:[facility], [address] [place] [phone] Notes/Report: White Blood Count 8.3 4.8-10.8 X10*3/uL [...] NRBC Abs Auto 0.000 0.0-0.012 X10*3/uL N CT angio abdomen Reviewed date:05/05/2024 10:11:09 AM Interpretation: Performing Lab: Notes/Report: [address] [address] [address] Scan Report Signed with Addenda Patient: Irene Rebollar MR#: [id number] 63 : 1950 Acct:[id number] Age/Sex: 74 / M ADM Date: 05/03/24 Loc: HO.S3 372-[address]: Cristiano Serrano MD Ordering Physician: Raji Tellez MD Date of Service: 05/04/24 Procedure(s): CT angio abdomen Accession Number(s): [id number] cc: Paolo Samayoa IT BUSINESS SYSTEMS ANALYST-; Raji Tellez MD Report Number: [id number]: Total DLP = 2273.00 mGy-cm ADDENDUM This [...] in OV> 05/04/241845 DD/ 43 TD/TT: 05/04/241843 Boat Hop: Complete Blood Count Auto Di ff Reviewed date:05/05/2024 10:10:45 AM Interpretation: Performing Lab:[facility], [address] [place] [phone] Notes/Report: White Blood Count 8.9 4.8-10.8 X10*3/uL [...] ff Reviewed date:05/05/2024 10:11:31 AM Interpretation: Performing Lab:[facility], [address] [place] [phone] Notes/Report: White Blood Count 10.5 4.8-10.8 X10*3/uL [...] NRBC Abs Auto 0.000 0.0-0.012 X10*3/uL N Reason For Referral No Information Medications Medication SIG (Take, Route, Frequency, Duration) Notes Start Date End Date Status Lasix 40 MG Tablet 1 tablet Orally Once a day; Duration: 30 day(s) Active Vitamin D (Ergocalciferol) 89366 UNIT Capsule as directed Oral twice a [...] Problem Screening for malignant neoplasm of colon (098470570) Encounter for screening for malignant neoplasm of colon (Z12.11) Active confirmed Problem History of adenomatous polyp of colon (446748997) History of adenomatous polyp of colon (Z86.010) Active confirmed Problem Iron deficiency (75682346) Iron deficiency (E61.1) Active confirmed Problem Diverticular disease of colon (714610542) Diverticulosis of large intestine without hemorrhage (K57.30) Active confirmed Problem Preprocedural examination (166436149363477) Preprocedural examination (Z01.818) Active confirmed Problem Gastroesophageal reflux disease (161484867) Gastroesophageal reflux disease, esophagitis presence not specified [...] OF [place] [address] [place] [address] [id number] IERNE REBOLLAR Self - patient is the insured [employer] ATT[employer] CLAIMS [address] [place] [address] [id number] IRENE REBOLLAR Self - patient is the insured Medical (General) History Medical History History ICD Code Denies MS,CVA,renal disease NIDDM COPD Colonoscopy in 2006 with mul tiple tubular adenoms removed, 1 with moderate dysplasia GERD--UGI in 2015 with a hiatal hernia Neuropathy in arms and legs HTN Edema Surgical History Surgery Date(Month/Year) Right inguinal hernia repair x 2 Heel spur
--- OUTSIDE RECORDS SUMMARY | 2025-01-25 08:41 | XMS_ITS | Encounter Summary ---
Author Organization [facility] Address [address] [place] [address] [address] [place] [address] Phone Care Team Providers Care Slot Service Specialist Name Role Phone Geovani Samayoa TESTING SHAKING SHIPPING Primary Care Provider + Encounter Details Date Type Department Care Team (Latest Contact Info) Description 02/05/2023 Ancillary Orders [facility] [address] [place] [address] 3rd Floor, [address] [place] [address] MD 22 [facility], [facility] [address] [place] [address] [email or web address] Dyspnea, unspecified type (Primary Dx) [...] Description 04/18/2025 11:00 AM EST Office Visit [facility] [address] [facility] 3rd Floor, [address] [place] [address] MD 22 [facility], [address] [place] [address] [email or web address] documented as of this encounter Results * [...] type documented in this encounter Care Teams Slot Service Specialist Relationship Specialty Start Date End Date Geovani Samayoa NP [facility] [place] [address] PCP - General Family Medicine 01/09/22 documented as of this encounter Additional Source Comments The information contained in this document represents components of the legal health record. It is not the complete legal health record.[facility]
--- OUTSIDE RECORDS SUMMARY | 2025-01-25 08:42 | XMS_ITS | Encounter Summary ---
Author Organization [facility] Address [address] [facility] [address] [place] [address] Phone Care Team Providers Care College Service Officer Name Role Phone Bk St MD Primary Care Provider [phone] Unknown, Unknown Primary Care Provider Geovani Sorenson NP Primary Care Provider + Encounter Details Date Type Department Care Team (Late st Contact Info) Description 07/10/2017 Ancillary Orders Virtual Department [address] [place] [address] MD 22 [facility], [address] [address] [email or web address] [...] Description 04/18/2025 11:00 AM EST Office Visit [facility] [address] [place] [address] 3rd Floor, [address] [place] [address] MD 22 [facility], [address] [address] [email or web address] documented as of this encounter Results * [...] collapse documented in this encounter Care Teams College Service Officer Relationship Specialty Start Date End Date Bk St MD [address] [place] [address], [address] [place] [address] [email or web address] PCP - General Pulmonary Disease 07/13/17 01/07/21 Unknown, Unknown, PCP - General 01/08/21 01/08/22 Geovani Samayoa NP [facility] [place] [address] PCP - General Family Medicine 01/09/22 documented as of this encounter Additional Source Comments The information contained in this document represents components of the legal health record. It is not the complete legal health record.[facility]
--- OUTSIDE RECORDS SUMMARY | 2025-01-25 08:42 | XMS_ITS | Encounter Summary ---
Author Organization [facility] Address [address] [place] [address] [address] [place] [address] Phone Care Team Providers Care Manager Private Name Role Phone Geovani Samayoa PAYROLL SERVICES ANALYST Primary Care Provider + Encounter Details Date Type Department Care Team (Late st Contact Info) Description 02/04/2023 Procedure Pass [facility], Ct Scan - [address] [address] Social History Tobacco Use Types Packs/Day Years [...] Description 04/18/2025 11:00 AM EST Office Visit [facility] [address] [place] [address] 3rd Floor, [address] [place] [address] MD 22 [facility], [address] [place] [address] [email or web address] documented as of this encounter Visit Diagnoses Not on filedocumented in this encounter Care Teams Manager Private Relationship Specialty Start Date End Date Geovani Samayoa NP [address] [place] [address] PCP - General Family Medicine 01/09/22 documented as of this encounter Additional Source Comments The information contained in this document represents components of the legal health record. It is not the complete legal health record.[facility]
--- OUTSIDE RECORDS SUMMARY | 2025-01-25 08:42 | XMS_ITS | Encounter Summary ---
Author Organization [facility] Address [address] [facility] [address] [place] [address] Phone Care Team Providers Care Campus Administrative Assistant Name Role Phone Bk St MD Primary Care Provider [phone] Unknown, Unknown Primary Care Provider Geovani Sorenson DETONATOR ASSEMBLER Primary Care Provider + Encounter Details Date Type Department Care Team (Late st Contact Info) Description 07/10/2017 Procedure Pass [facility], Ct Scan - [address] [address] Social History Tobacco Use Types Packs/Day Years [...] Description 04/18/2025 11:00 AM EST Office Visit [facility] [address] [place] [address] 3rd Floor, [address] [place] [id number] MD 22 [facility], [address] [address] [email or web address] documented as of this encounter Visit Diagnoses Not on filedocumented in this encounter Care Teams Campus Administrative Assistant Relationship Specialty Start Date End Date Bk St MD [facility], [address] [place] [address] [email or web address] PCP - General Pulmonary Disease 07/13/17 01/07/21 Unknown, Unknown, PCP - General 01/08/21 01/08/22 Geovani Samayoa NP [address] [place] [address] [place] [address] PCP - General Family Medicine 01/09/22 documented as of this encounter Additional Source Comments The information contained in this document represents components of the legal health record. It is not the complete legal health record.[facility]
--- OUTSIDE RECORDS SUMMARY | 2025-01-25 08:42 | XMS_ITS | Patient Health Record ---
Author Organization [facility] Florentin marguerite Yreka Address [address] [facility] [address] Care Team Providers Care Harness Builder Name Role Phone Geovani Sears Primary Care Provider Unav ailable Crow Morris Unavailable [phone] Allergies No Known Allergies Results Component Value [...] Problem Acquired hammer toe of right foot (2449712825186894 ) Other hammer toe(s) (acquired), right foot (M20.41) Active confirmed Response to treatment, Improvemen t Problem Acquired hammer toe of left foot (3638193649390185 ) Other hammer toe(s) (acquired), left foot (M20.42) Active confirmed Response to treatment, Improvemen t Problem Polyneuropathy due to type 2 diabetes mellitus (140275950) Type 2 diabetes mellitus with diabetic polyneuropathy (E11.42) Active confirmed Vital Signs Blood pressure diastolic 65 mm Hg 11/18/2024 Height 6 ft in 11/18/2024 Blood pressure systolic 126 mm Hg 11/18/2024 Weight 245 lbs 11/18/2024 BMI 33.22 kg/m2 11/18/2024 Procedures Procedure Date Ordered Date Performed Result Body Sit e 72699-LDECAAB NAIL, 6 OR MORE 02/02/2024 N/A 93842-NTKA SKIN LESIONS, 2 TO 4 02/02/2024 N/A 65852-CWOMJLG NAIL, 6 OR MORE 05/13/2024 N/A 22038-QNWW SKIN LESIONS, 2 TO 4 05/13/2024 N/A 06527- Removal of Foreign Body, Subcut 05/13/2024 N/A 72871-NSJINEI NAIL, 6 OR MORE 08/16/2024 N/A 82183-RWER SKIN LESIONS, 2 TO 4 08/16/2024 N/A 05695-PHDJXKK NAIL, 6 OR MORE 11/18/2024 N/A 59050-LGIK SKIN LESIONS, 2 TO 4 11/18/2024 N/A Encounters Encounter Location Date Provider Diagnosis [address] [address] 02/02/2024 Crow Morris Type 2 diabetes mellitus with diabetic polyneuropathy E11.42 and Tinea unguium B35.[address] [address] 05/13/2024 Crowerin Morris Type 2 diabetes mellitus with diabetic polyneuropathy E11.42 ; Tinea unguium B35.1 ; Other hammer toe(s) (acquired), right foot M20.41 ; Other hammer toe(s) (acquired), left foot M20.42 and Puncture wound with foreign body, right foot, initial encounter S91.341A [address] [address] 08/16/2024 Crowerin Morris Type 2 diabetes mellitus with diabetic polyneuropathy E11.42 and Tinea unguium B35.1 [facility] [place] [address] [place] [address] 11/18/2024 Crow Morris Type 2 diabetes mellitus with diabetic polyneuropathy E11.42 and Tinea unguium B35.[address] [address] 05/03/2024 Crow Morris Assessments Encounter Date Diagnosis [...] Treatment Pending Test Test Name Order Date 90730-VGSYHXG NAIL, 6 OR MORE 11/03/2023 39975-DWJNCRG NAIL, 6 OR MORE 02/02/2024 61633-CXOGQSL NAIL, 6 OR MORE 05/13/2024 46817-PPDBFJG NAIL, 6 OR MORE 08/16/2024 28647-CZOCFKA NAIL, 6 OR MORE 11/18/2024 17532-Klbhkpkh Plate 11/03/2023 58338- Debride <25 sq cm 07/23/2018 43496 I&D ABSCESS- SIMPLE,SINGLE 019 05250-XWCC SKIN LESIONS, 2 TO 4 11/03/19 24 46961-ULLN SKIN LESIONS, 2 TO 4 05/14/19 25 97936-MPUY SKIN LESIONS, 2 TO 4 02/02/20 24 04881-UXHI SKIN LESIONS, 2 TO 4 11/19/19 25 69643-YNUC SKIN LESIONS, 2 TO 4 08/17/19 28112- Removal of Foreign Body, Subcut 0 05/13/2024 Next Appt Details Provider Name:Crow Isela Morris , 03/10/2025 01:45:00 PM, [address] [place], [address], Insurance Providers Payer Name Payer Address Payer Phone Subscriber Number Group Number Insured Name Patient Relationship to Insured Coverage Start Date Coverage End Date Medicare National Govt [facility] [address] [place] [address] [id number] Cody Rebollar Self - patient is the insured 7 [employer] Blue Shield [address] [place] [address] [id number] Cody Rebollar Self - patient is the [...] [place] Reason [place] [facility] [place] 04/[place]23
[2025-01-25 10:40] LABS: MANUAL DIFF FLAG NO
[2025-01-25 10:57] LABS: Appearance Urine Clear; Glucose Urine UA >=1000 mg/dL (Negative); PH 5.5 (5.0-9.0); Specific Gravity - Urine >= 1.030 (1.005-1.025); UMIC TRIGGER UACC YES
[2025-01-25 11:07] LABS: Hematocrit 53.5 % (42.0-52.0); Hemoglobin 16.1 g/dl (14.0-18.0); Imm Gran Abs Auto 0.04 X10*3/uL (0.00-0.03); Imm Gran Pct Auto 0.4 % (0.0-0.4); Lymphocytes Absolute Auto 2.1 X10*3/uL (1.2-4.9); Mean Corpuscular HGB Conc 30.1 g/dl (31.0-36.0); Mean Corpuscular Hemoglobin 25.0 pg (27.0-33.0); Mean Corpuscular Volume 83.2 fL (80.0-98.0); NRBC Abs Auto 0.000 X10*3/uL (0.0-0.012); NRBC Pct Auto 0.0 /100WBC (0.0-0.2); Platelet Count 258 X10*3/uL (160-400); Red Blood Count 6.43 X10*6/uL (4.60-5.80); White Blood Count 9.4 X10*3/uL (4.8-10.8)
[2025-01-25 12:17] LABS: HBS Num1 0.20 mIU/mL (0-7.99); HBc Num1 0.11 S/CO (0.00-0.79); HBsAGNum1 0.46 S/CO (0.00-0.99); Hepatitis A Antibody IgM 0.28 Index (0-0.79); Hepatitis B Surface Antigen Negative (Negative); ~HepC Num1 0.13 S/CO (0.00-0.79); ~Hepatitis A Antibody IgM Nonreactive (Nonreactive); ~Hepatitis B Surface Antibody NONREACTIVE (Nonreactive); ~Hepatitis C Antibody Nonreactive (Nonreactive)
[2025-01-25 12:26] LABS: Folate 8.2 ng/mL (> or = 4.0); Vitamin B12 431 pg/mL (200-900)
[2025-01-25 13:00] LABS: Alanine Aminotransferase 29 U/L (0-40); Albumin Level 4.4 g/dL (3.5-5.0); Alkaline Phosphatase 84 U/L (39-117); Anion Gap 11 (12-20); Aspartate Amino Transferase 27 U/L (5-37); Blood Urea Nitrogen 24 mg/dL (9-16); Calcium 9.3 mg/dL (8.4-10.2); Carbon Dioxide 26 mmol/L (22-29); Chloride 107 mmol/L (96-108); Cholesterol 110 mg/dL (<200); Estimated Glomerular Filt Rate > 60; HDL Cholesterol 38 mg/dL (>40); Potassium 4.4 mmol/L (3.3-5.1); Sodium 140 mmol/L (135-145); Total Protein 7.0 g/dL (6.5-8.0); Triglycerides 196 mg/dL (<150)
[2025-01-30 22:14] LABS: Anti Nuclear Antibody Pattern Nuclear, Speckled; Anti Nuclear Antibody Screen POSITIVE (NEGATIVE); Anti Nuclear Antibody Titer 1:80 titer
== END 2025-01-25 08:22 | disposition home or self-care (01) ==
LOC: HO.HMGCLDS 08:21
PROVIDERS: Psychiatry & Neurology Neurology; Absent Provider Internal Medicine Hypertension Specialist; PCP Nurse Practitioner Family; Visit Provider Nurse Practitioner Family
DX: Z01.84 Encounter for antibody response examination (principal); Z12.5 Encounter for screening for malignant neoplasm of prostate; E11.9 Type 2 diabetes mellitus without complications; G62.9 Polyneuropathy, unspecified; E55.9 Vitamin D deficiency, unspecified
CPT/HCPCS: 36415; 80053; 80061; 81001; 82306; 82607; 82746; 84153; 84443; 85025; 85652; 86038; 86039; 86704; 86706; 86709; 86803; 87340

== ENCOUNTER 2025-01-27 07:25 | Outpatient (REF) | payer MEDICARE, SELFPAY ==
--- OUTSIDE RECORDS SUMMARY | 2023-10-04 03:50 | XMS_ITS | Continuity of Care Document ---
Author Organization [facility] Address [address] [place] [address] Phone Care Team Providers Care Odd Shoe Examiner Name Role Phone Unavailable Unavailable Unavailable Allergies, Adverse Reactions, Alerts Substance Reaction Status Criticality No Known allergies Medications Medication Instructions Dosage Effective Dates (start - stop) Status Comments Combivent Respimat 20 mcg-100 mcg/actuation solution for inhalation inhale 1 puff by inhalation route 4 times every day ; may take additional puffs as needed not to exceed 6 puffs in 24hrs 1.00 puff - Active aspirin 81 mg tablet,delayed release take 1 tablet by oral route every day 81 MG - Active Corlanor 5 mg tablet take 1 tablet by oral route 2 times every day 5 MG - Active verapamil ER 180 mg 24 hr capsule,extended release - Active Trelegy Ellipta 100 mcg-62.5 mcg-25 mcg powder for inhalation - Active Jardiance 10 mg tablet - Active meloxicam 15 mg tablet - Active omeprazole 40 mg capsule,delayed release - Active metformin 1,000 mg tablet - Active tamsulosin 0.4 mg capsule - Active finasteride 5 mg tablet - Active rosuvastatin 40 mg tablet - Active cephalexin 500 mg capsule take 1 capsule by oral route every 8 hours for 10 days 500 MG - No Longer Active mupirocin 2 % topical ointment apply by topical route 3 times every day a small amount to the affected area Not Available - No Longer Active Procedures Procedure Date Offic/outpt E&m New [place]o Sever Services provided in an urgent care [facility] er Advance Directives Directive Yes / No Effective Date File Name No Information Encounters Encounter Description Practice Location Reason(s) For Visit Diagnoses Date Provider Providers Copied on Encounter Offic/outpt E&m New Salo Sever [facility], [address], [place], [place], [id number], tel:[phone] [facility] Rash (chief complaint) Cellulitis of right toe No Information [facility], [address], [place], [place], [id number], tel:[phone] [facility] No Information No Information Family History Family Member Type Diagnosis Age At Onset No Information Payers Payer name Insurance type Covered alliance party ID Helena valente(s) Medicare B [facility] [id number] [facility] [id number] Social History Type Description Quantity Date Captured Comments Alcohol Use Details Unknown Caffeine Use Details Unknown Tobacco Use Status Current non-smoker Smoking Status Never smoker Non-Smoking Tobacco Use Details : No Details Available : No Details Available Sex Male Vital Signs Date / Time: Height Weight BMI Pulse Rate Blood Pressure Temperature Respiratory Rate Body Surface Area Head Circumference Head Circ. Percentile Wt./Ayan. Percentile BMI percentile Pulse Ox Inhaled Ox 9:10 AM 72.00 in 114.305 kg (252.00 lbs) 34.1 8 kg/m eter (2) 102 /min 134/75 mm[Hg] 96.60 F 16 /min 95 % Chief Complaint And Reason For Visit From encounter dated '10/04/2023 08:50'. Rash (chief complaint). Description: Onset 1 day ago. Location is foot. The patient describes it aserythematous. Symptom is aggravated by local pressure. Denies relieving factors. Associated factorsinclude pain. Pertinent negatives include fatigue and fever. Reason For Referral Reason For Referral No Information History Of Present Illness Encounter Date Complaint History Of Prese nt Illness Comments: Pt pre sents for right big toe infection. He has infection in June, was drained and placed on oral antibiotics which resolved the infection. Pt states starting yesterday the toe felt sore in the same area and today was more sore with redness and swelling. He reports pushing it with production of clear liquid. He denies fever, chills. Pt has podiatry appointment in October. History of diabetes and diabetic neuropathy. Denies injury. Rash Onset 1 day ago. Location is foot. The patient describes it as erythematous. Symptom is aggravated by local pressure. Denies relieving factors. Associated factors include pain. Pertinent negatives include fatigue and fever. Functional Status Date Functional Assessmen t No Information Instructions Date Instruction Additional Infor iris Complete the antibio tics as prescribedSoaks in warm water with epsom salt, test water temperatureWATCH CLOSELY FOR THESE WORSENING* SIGNS OF INFECTION: REDNESS; DRAINAGE/PUS; WARMTH AT SITE OR GENERAL FEVER; SWELLING; RED STREAKS; INCREASING PAIN. RETURN TO THE CLINIC OR GO TO THE EMERGENCY ROOM IF THESE SYMPTOMS DEVELOP. Follow up with podiatry as scheduled, sooner for worsening Related to Cellulitis of right toe Assessments Type Assessment Date assessment Cellulitis of right toe 024 Mental Status Date Cognitive Assessment Orientation - [place] ed to time, place, person, situation. Patient Care Teams Name Effective Dates (start - stop) Status Members No Information
--- OUTSIDE RECORDS SUMMARY | 2024-05-03 06:00 | XMS_ITS ---
Author Organization [facility] Address [address] [place] [address] Care Team Providers Care Chalk Extruding Machine Operator Name Role Phone Geovani Sears Primary Care Provider Unav ailable Crow Morris Unavailable [phone] Encounters Encounter Location Date Provider Diagnosis [address] [address] 05/03/2024 Crow Morris Plan Of Treatment Next Appt Details Provider Name:Crow Morris , 03/10/2025 01:45:00 PM, [address] [place] [address], [address], Progress Notes * Cody REBOLLAR WDOB: 3 (74 yo M)Acc No.[id number]:05/03/2024 Progress Note Patient: Cody LIRA Provider: Luzmaria Morris DPM :1950 A ge:74 Y S ex:Male Date:05/03/2024 Address:[address] [place] [address] jorge alberto [phone] Pcp:LOU Sun Subjective: * Chief Complaints: * [...] 0 05/03/2024 Generated for Kirill kaplan/Merline on: 03/29/2024 07:28 AM EST
--- OUTSIDE RECORDS SUMMARY | 2025-01-27 07:28 | XMS_ITS | Encounter Summary ---
Author Organization [facility] Address [address] [facility] [address] [place] [address] Phone Care Team Providers Care Negative Cleaner Name Role Phone Geovani Samayoa AUTO TECH Primary Care Provider + Encounter Details Date Type Department Care Team (Late st Contact Info) Description 02/09/2023 Transcribe Orders [facility] [address] [place] [address] MD 22 [facility], [address] [place] [address] [email or web address] Social History [...] Description 04/18/2025 11:00 AM EST Office Visit [facility] [address] [facility] 3rd Floor, [address] [place] [address] MD [address] [facility], [address] [place] [address] [email or web address] documented as of this encounter Visit Diagnoses Not on filedocumented in this encounter Care Teams Negative Cleaner Relationship Specialty Start Date End Date Geovani Samayoa NP [facility] [place] [address] PCP - General Family Medicine 01/09/22 documented as of this encounter Additional Source Comments The information contained in this document represents components of the legal health record. It is not the complete legal health record.[facility]
--- OUTSIDE RECORDS SUMMARY | 2025-01-27 07:28 | XMS_ITS | Encounter Summary ---
Author Organization [facility] Address [address] [facility] [address] [place] [address] Phone Care Team Providers Care It Lead Name Role Phone Bk St MD Primary Care Provider [phone] Unknown, Unknown Primary Care Provider Geovani Sorenson CONTRACTS OFFICER Primary Care Provider + Encounter Details Date Type Department Care Team (Late st Contact Info) Description 07/10/2017 Procedure Pass [facility], Ct Scan - [address] [address] Social History Tobacco Use Types Packs/Day Years [...] Description 04/18/2025 11:00 AM EST Office Visit [facility] [address] [place] [address] 3rd Floor, [address] [place], [place] [address] Bk [address] MD 22 [facility], [address] [address] [email or web address] documented as of this encounter Visit Diagnoses Not on filedocumented in this encounter Care Teams It Lead Relationship Specialty Start Date End Date Bk St MD [facility], [address] [place] [address] [email or web address] PCP - General Pulmonary Disease 07/13/17 01/07/21 Unknown, Unknown, PCP - General 01/08/21 01/08/22 Geovani Samayoa NP [address] [place] [address] [place] [address] PCP - General Family Medicine 01/09/22 documented as of this encounter Additional Source Comments The information contained in this document represents components of the legal health record. It is not the complete legal health record.[facility]
--- OUTSIDE RECORDS SUMMARY | 2025-01-27 07:28 | XMS_ITS | Encounter Summary ---
Author Organization [facility] Address [address] [place] [address] [address] [place] [address] Phone Care Team Providers Care Whizzer Name Role Phone Geovani Samayoa DROPPER TANK STORAGE Primary Care Provider + Encounter Details Date Type Department Care Team (Late st Contact Info) Description 02/04/2023 Procedure Pass [facility], Ct Scan - [address] [address] Social History Tobacco Use Types Packs/Day Years [...] Description 04/18/2025 11:00 AM EST Office Visit [facility] [address] [place] [address] 3rd Floor, [address] [place] [address] MD 22 [facility], [address] [place] [address] [email or web address] documented as of this encounter Visit Diagnoses Not on filedocumented in this encounter Care Teams Whizzer Relationship Specialty Start Date End Date Geovani Samayoa NP [address] [place] [address] PCP - General Family Medicine 01/09/22 documented as of this encounter Additional Source Comments The information contained in this document represents components of the legal health record. It is not the complete legal health record.[facility]
--- OUTSIDE RECORDS SUMMARY | 2025-01-27 07:28 | XMS_ITS | Encounter Summary ---
Author Organization [facility] Address [address] [facility] [address] [place] [address] Phone Care Team Providers Care Electrician Substation Name Role Phone Bk St MD Primary Care Provider [phone] Unknown, Unknown Primary Care Provider Geovani Sorenson NP Primary Care Provider + Encounter Details Date Type Department Care Team (Late st Contact Info) Description 07/10/2017 Ancillary Orders Virtual Department [address] [place] [address] MD 22 [facility], [address] [address] [email or web address] Atelectasis Social History Tobacco Use Types Packs/Day [...] Description 04/18/2025 11:00 AM EST Office Visit [facility] [address] [place] [address] 3rd Floor, [address] [place] [address] MD 22 [facility], [address] [address] [email or web address] documented as of this encounter Results * [...] collapse documented in this encounter Care Teams Electrician Substation Relationship Specialty Start Date End Date Bk St MD [address] [place] [address], [address] [place] [address] [email or web address] PCP - General Pulmonary Disease 07/13/17 01/07/21 Unknown, Unknown, PCP - General 01/08/21 01/08/22 Geovani Samyaoa NP [facility] [place] [address] PCP - General Family Medicine 01/09/22 documented as of this encounter Additional Source Comments The information contained in this document represents components of the legal health record. It is not the complete legal health record.[facility]
--- OUTSIDE RECORDS SUMMARY | 2025-01-27 07:28 | XMS_ITS | Patient Health Record ---
Author Organization [facility] Florentin marguerite Davidson Address [address] [place] [address] Care Team Providers Care Studio Camera Operator Name Role Phone Geovani Sears Primary Care Provider Unav ailable Crow Morris Unavailable [phone] Allergies No Known Allergies Results Component Value [...] Problem Acquired hammer toe of right foot (4863720387638330 ) Other hammer toe(s) (acquired), right foot (M20.41) Active confirmed Response to treatment, Improvemen t Problem Acquired hammer toe of left foot (4989935002466940 ) Other hammer toe(s) (acquired), left foot (M20.42) Active confirmed Response to treatment, Improvemen t Problem Polyneuropathy due to type 2 diabetes mellitus (912157649) Type 2 diabetes mellitus with diabetic polyneuropathy (E11.42) Active confirmed Vital Signs Blood pressure diastolic 65 mm Hg 11/18/2024 Height 6 ft in 11/18/2024 Blood pressure systolic 126 mm Hg 11/18/2024 Weight 245 lbs 11/18/2024 BMI 33.22 kg/m2 11/18/2024 Procedures Procedure Date Ordered Date Performed Result Body Sit e 17822-JTEFDVV NAIL, 6 OR MORE 02/02/2024 N/A 06132-EIKG SKIN LESIONS, 2 TO 4 02/02/2024 N/A 20405-ZIGLCVY NAIL, 6 OR MORE 05/13/2024 N/A 77616-NJMJ SKIN LESIONS, 2 TO 4 05/13/2024 N/A 35605- Removal of Foreign Body, Subcut 05/13/2024 N/A 78574-NWWTOXT NAIL, 6 OR MORE 08/16/2024 N/A 92290-EZBM SKIN LESIONS, 2 TO 4 08/16/2024 N/A 43127-HLSINRI NAIL, 6 OR MORE 11/18/2024 N/A 92687-ICEW SKIN LESIONS, 2 TO 4 11/18/2024 N/A Encounters Encounter Location Date Provider Diagnosis [address] [address] 02/02/2024 Crow Morris Type 2 diabetes mellitus with diabetic polyneuropathy E11.42 and Tinea unguium B35.[address] [address] 05/13/2024 Crowerin Morris Type 2 diabetes mellitus with diabetic polyneuropathy E11.42 ; Tinea unguium B35.1 ; Other hammer toe(s) (acquired), right foot M20.41 ; Other hammer toe(s) (acquired), left foot M20.42 and Puncture wound with foreign body, right foot, initial encounter S91.341A [address] [address] 08/16/2024 Crowerin Morris Type 2 diabetes mellitus with diabetic polyneuropathy E11.42 and Tinea unguium B35.1 [facility] [address] [place] [address] 11/18/2024 Crow Morris Type 2 diabetes mellitus with diabetic polyneuropathy E11.42 and Tinea unguium B35.[address] [address] 05/03/2024 Crow Morris Assessments Encounter Date Diagnosis [...] Treatment Pending Test Test Name Order Date 42912-GMGWGWL NAIL, 6 OR MORE 11/03/2023 30632-ICLBKFM NAIL, 6 OR MORE 02/02/2024 62903-MOVGLDM NAIL, 6 OR MORE 05/13/2024 68481-KOBRPCG NAIL, 6 OR MORE 08/16/2024 47609-FDKAMBM NAIL, 6 OR MORE 11/18/2024 94468-Cehpcghf Plate 11/03/2023 69607- Debride <25 sq cm 07/23/2018 66426 I&D ABSCESS- SIMPLE,SINGLE 019 78510-RBJR SKIN LESIONS, 2 TO 4 11/03/19 24 37620-WRWZ SKIN LESIONS, 2 TO 4 05/14/19 25 99630-GJEU SKIN LESIONS, 2 TO 4 02/02/20 24 64343-ERDV SKIN LESIONS, 2 TO 4 11/19/19 25 49101-WLQF SKIN LESIONS, 2 TO 4 08/17/19 27283- Removal of Foreign Body, Subcut 0 05/13/2024 Next Appt Details Provider Name:Crow Isela Morris , 03/10/2025 01:45:00 PM, [address] [place], [address], Insurance Providers Payer Name Payer Address Payer Phone Subscriber Number Group Number Insured Name Patient Relationship to Insured Coverage Start Date Coverage End Date Medicare National Govt [facility] [address] [facility] [place] [address] [id number] Cody Rebollar Self - patient is the insured 7 [employer] Blue Shield [address] [place] [address] [id number] Cody Rebollar Self - patient is the [...] Hernia Repair 2000 Hospitalization History Reason Date(Month/Year) [facility] [place] Throwing up blood 04/2023
--- OUTSIDE RECORDS SUMMARY | 2025-01-27 07:28 | XMS_ITS | Encounter Summary ---
Author Organization [facility] Address [address] [place] [address] [address] [place] [address] Phone Care Team Providers Care Beauty Specialist Name Role Phone Geovani Samayoa SQUIRREL MAN Primary Care Provider + Encounter Details Date Type Department Care Team (Latest Contact Info) Description 02/05/2023 Ancillary Orders [facility] [address] [place] [address] 3rd Floor, [address] [place] [address] MD [address] [facility], [facility] [address] [place] [address] [email or web address] Dyspnea, unspecified type (Primary Dx) [...] Description 04/18/2025 11:00 AM EST Office Visit [facility] [address] [facility] 3rd Floor, [address] [place] [address] MD [address] [facility], [address] [place] [address] [email or web address] documented as of this encounter Results * [...] type documented in this encounter Care Teams Beauty Specialist Relationship Specialty Start Date End Date Geovani Samayoa NP [facility] [place] [address] PCP - General Family Medicine 01/09/22 documented as of this encounter Additional Source Comments The information contained in this document represents components of the legal health record. It is not the complete legal health record.[facility]
--- OUTSIDE RECORDS SUMMARY | 2025-01-27 07:28 | XMS_ITS | Encounter Summary ---
Author Organization [facility] Address [address] [place] [address] [address] [place] [address] Phone Care Team Providers Care Product Safety Specialist Name Role Phone Geovani Samayoa DIE BARBER Primary Care Provider + Encounter Details Date Type Department Care Team (Late st Contact Info) Description 02/16/2024 Procedure Pass [facility], Ct Scan - [address] [address] Social History Tobacco Use Types Packs/Day Years [...] Description 04/18/2025 11:00 AM EST Office Visit [facility] [address] [place] [address] 3rd Floor, [address] [place] [address] MD 22 [facility], [address] [place] [address] [email or web address] documented as of this encounter Visit Diagnoses Not on filedocumented in this encounter Care Teams Product Safety Specialist Relationship Specialty Start Date End Date Geovani Samayoa NP [address] [facility] [place] [address] PCP - General Family Medicine 01/09/22 documented as of this encounter Additional Source Comments The information contained in this document represents components of the legal health record. It is not the complete legal health record.[facility]
--- OUTSIDE RECORDS SUMMARY | 2025-01-27 07:28 | XMS_ITS | Clinical Summary ---
Author Organization [facility] Address [address] [place] [address] [place] [address] Phone Care Team Providers Care Automobile Racer Name Role Phone Geovani Samayoa MACHINIST APPRENTICE Primary Care Provider + Allergies No known [...] Active ferrous sulfate 325 mg (65 mg catawba iron) tablet Take 325 mg by mouth [...] Type Department Care Team Description 01/19/2025 Telephone [facility] [address] [facility] 3rd Floor, [address] [place] [address] MD from Last 3 Months [...] Description 04/18/2025 11:00 AM EST Office Visit [facility] [address] [place] [address] 3rd Floor, [address] [place] [address] MD 22 [facility], [address] [place] [address] [email or web address] Health Maintenance Due Date Last Done Comments [...] file Insurance MEDICARE PART A & B [employer] MEDEX SUPPLEMENT MEDICARE PART A & B [employer] MEDEX SUPPLEMENT MEDICARE PART A & [place] [address] [address] [address] MEDEX SUPPLEMENT MEDICARE PART A & B [employer] MEDEX SUPPLEMENT MEDICARE PART A & B [employer] MEDEX SUPPLEMENT MEDICARE PART A & B Member Subscriber Plan / Payer (Ef fective 2016-Present) Name:Irene Rebollar Member ID:[id number] Relation to Subscriber:Self Name:Irene Rebollar Subscriber ID:[id number] Payer ID:[id number] Group ID:Not on file Type:Medicare Address: [employer] [address] [place] [id number] [employer] MEDEX SUPPLEMENT MEDICARE PART A & B mon[employer] MEDEX SUPPLEMENT MEDICARE PART A & B [employer] MEDEX SUPPLEMENT MEDICARE PART A & B [employer] MEDEX SUPPLEMENT Care Teams Automobile Racer Relationship Specialty Start Date End Date Geovani Samayoa NP [address] [facility] [address] [place] [id number] PCP - General Family Medicine 01/09/22 Additional Source Comments The information contained in this document represents components of the legal health record. It is not the complete legal health record.[facility]
--- OUTSIDE RECORDS SUMMARY | 2025-01-27 07:28 | XMS_ITS | Patient Health Record ---
Author Organization [facility] Address [address] [place] [address] Care Team Providers Care Stopperer Assembler Name Role Phone PAOLO SAMAYOA Primary Care Provider Raji Salas [phone] Allergies Allergen (clinical drug ingredient) Drug/Non Drug Allergy documented on EMR Reaction Allergy Type Onset Date Status Aloe Aftersun Unknown Drug Allergy Act alejandro Results Component Value Reference Range Flag Notes Pathology Reviewed date:05/09/2024 06:04:55 PM Interpretation: Performing Lab:[facility], [address] [place] [phone] Notes/Report: Complete Blood Count Auto Di ff Reviewed date:05/05/2024 05:48:11 PM Interpretation: Performing Lab:[facility], [address] [place] [phone] Notes/Report: White Blood Count 8.3 4.8-10.8 X10*3/uL [...] Gel Reviewed date:05/05/2024 06:02:20 PM Interpretation: Performing Lab:[facility], [address] [place] [phone] Notes/Report: Hold Green Gel See Note Specimen held untested for 24 hours; Call to request Chemistry testing. CT angio abdomen Reviewed date:05/05/2024 10:11:09 AM Interpretation: Performing Lab: Notes/Report: [address] [address] [address] Scan Report Signed with Addenda Patient: Irene Rebollar MR#: [id number] 61 : 1950 Acct:[id number] Age/Sex: 74 / M ADM Date: 05/03/24 Loc: HO.S3 372-[address]: Cristiano Serrano MD Ordering Physician: Raji Tellez MD Date of Service: 05/04/24 Procedure(s): CT angio abdomen Accession Number(s): [id number] cc: Paolo Samayoa EARLY CHILDHOOD EDUCATOR AIDE-; Raji Tellez MD Report Number: [id number]: Total DLP = 2273.00 mGy-cm ADDENDUM This [...] in OV> 05/04/241845 DD/ 43 TD/TT: 05/04/241843 Warehouse Record Clerk: Complete Blood Count Auto Di ff Reviewed date:05/05/2024 10:10:45 AM Interpretation: Performing Lab:[facility], [address] [place] [phone] Notes/Report: White Blood Count 8.9 4.8-10.8 X10*3/uL [...] ff Reviewed date:05/05/2024 10:11:31 AM Interpretation: Performing Lab:[facility], [address] [place] [phone] Notes/Report: White Blood Count 10.5 4.8-10.8 X10*3/uL [...] Duration: 30 day(s) Active Vitamin D (Ergocalciferol) 75772 UNIT Capsule as directed Oral twice a [...] Problem Screening for malignant neoplasm of colon (152016762) Encounter for screening for malignant neoplasm of colon (Z12.11) Active confirmed Problem History of adenomatous polyp of colon (293639997) History of adenomatous polyp of colon (Z86.010) Active confirmed Problem Iron deficiency (20178044) Iron deficiency (E61.1) Active confirmed Problem Diverticular disease of colon (666297891) Diverticulosis of large intestine without hemorrhage (K57.30) Active confirmed Problem Preprocedural examination (140674817115374) Preprocedural examination (Z01.818) Active confirmed Problem Gastroesophageal reflux disease (416791412) Gastroesophageal reflux disease, esophagitis presence not specified [...] OF [place] [address] [place] [address] [id number] IRENE REBOLLAR Self - patient is the insured MEDEX ATTN CLAIMS [address] [place] [address] [id number] IRENE REBOLLAR Self - patient is the insured Medical (General) History Medical History History ICD Code Denies PR,CVA,renal disease NIDDM COPD Colonoscopy in 2006 with mul tiple tubular adenoms removed, 1 with moderate dysplasia GERD--UGI in 2015 with a hiatal hernia Neuropathy in arms and legs HTN Edema Surgical History Surgery Date(Month/Year) Right inguinal hernia repair x 2 Heel spur
[2025-01-27 07:40] LABS: MANUAL DIFF FLAG NO
[2025-01-27 07:50] LABS: Hematocrit 51.0 % (42.0-52.0); Hemoglobin 15.5 g/dl (14.0-18.0); Imm Gran Abs Auto 0.03 X10*3/uL (0.00-0.03); Imm Gran Pct Auto 0.3 % (0.0-0.4); Lymphocytes Absolute Auto 2.2 X10*3/uL (1.2-4.9); Mean Corpuscular HGB Conc 30.4 g/dl (31.0-36.0); Mean Corpuscular Hemoglobin 25.0 pg (27.0-33.0); Mean Corpuscular Volume 82.3 fL (80.0-98.0); NRBC Abs Auto 0.000 X10*3/uL (0.0-0.012); NRBC Pct Auto 0.0 /100WBC (0.0-0.2); Platelet Count 222 X10*3/uL (160-400); Red Blood Count 6.20 X10*6/uL (4.60-5.80); White Blood Count 9.5 X10*3/uL (4.8-10.8)
[2025-01-27 08:35] LABS: PSA,Total (Free>4and<10) 0.61 ng/mL (0.00-4.00)
== END 2025-01-27 07:26 | disposition home or self-care (01) ==
LOC: HO.LAB 07:25
PROVIDERS: Nurse Practitioner Family; Urology; Visit Provider Psychiatry & Neurology Neurology
DX: Z12.5 Encounter for screening for malignant neoplasm of prostate (principal); E11.9 Type 2 diabetes mellitus without complications; G62.9 Polyneuropathy, unspecified
CPT/HCPCS: 36415; 83090; 84153; 85025

== ENCOUNTER 2025-02-13 12:01 | Outpatient (AMB) | payer MEDICARE, SELFPAY ==
[2025-02-13 12:08] VITALS: BP 142/58; PULSE 88; TEMP 36.7; O2SAT 97; BMI 35.3
--- NOTE | 2025-02-13 12:08 | MHC.OFFWIV ---
Intake Vital Signs 02/13/25 12:08 Height 6 ft Weight 260 lb BMI 35.3 BP 142/58 H Blood Pressure Location Lt brachial Position Sitting Pulse 88 Pulse Source Pulse Oximeter Temp 98.1 F Temp Source Oral Pulse Oximetry (%) 97 Oxygen Delivery Method Room Air Comment High BP: pt states Plumber Gasfitter working on it. provider notified. Intake Visit Reasons: EP Possible infection in groin area Intake Note: pt presents with skin swelling, redness with tingling sensation to head of his penis for 3 days- states he has not been sexually active and that he is uncircumsized Patient Tobacco Use Status: Former Tobacco user Allergies No Known Allergies Allergy (Verified 02/13/25 12:12) Do you need a note to return to daycare/school/sports/work: No HPI HPI Comments History of Present Illness Details The patient is a 74-year-old male who presents to the walk-in clinic with a chief complaint of a very itchy rash localized to the groin and penile head. He reports associated burning and tingling sensations, as well as noticeable redness in the affected areas. The patient has a history of Type 2 Diabetes Mellitus, currently managed with Jardiance. He also reports recent antibiotic use (amoxicillin in December) for a sinus infection. He states that he has been applying leftover topical creams from home, most of which are steroid-based, without significant relief. He denies any recent sexual activity and has no concern for sexually transmitted infections. He also denies urinary symptoms such as dysuria, frequency, or urgency. The patient notes a history of recurrent similar rashes and believes this is likely a fungal infection. [facility] Medical History (Updated 02/13/25 @ 13:02 by Angela Avalos NP) Tinea cruris Neuropathy COPD (chronic obstructive pulmonary disease) PAD (peripheral artery disease) Arrhythmia Diabetes Dyslipidemia Hyperlipidemia Inappropriate sinus tachycardia Surgical History H/O endoscopy H/O colonoscopy History of surgery Hx of hernia repair Hx of cardiac cath Family History Paternal Grandfather CAD (coronary artery disease) Father Pulmonary disease Maternal Grandmother Diabetes mellitus Social History Household Members: Children Housing: House Are you a primary caregiver services home to a significant other at home: No Do you presently have visiting nurse or other home services: No Alcohol intake: current Alcohol intake frequency: holidays/special occasions only Patient Tobacco Use Status: Former Tobacco user Tobacco use type: Cigarette e-Cigarette/Vaping Use: Never Used Second Hand Smoke Exposure: No Advance Directives Date on File: 12/14/23 service: No Current occupational status: retired Cognitive needs: No Hearing needs: No Vision needs: No Review of Systems Const All systems reviewed & are unremarkable except as noted in HPI and below Physical Exam Vital Signs: Last Vital Signs Temp 98.1 F 02/13/25 12:08 Pulse 88 02/13/25 12:08 BP 142/58 H 02/13/25 12:08 Pulse Ox 97 02/13/25 12:08 Oxygen Delivery Method Room Air 02/13/25 12:08 BMI result Body Mass Index 35.3 Const General: no acute distress Nutritional Appearance: obese Orientation/consciousness: patient oriented x3 Skin Other: Groin/Penis: Erythematous, macerated plaques on groin and penile head; no vesicles, pustules, or ulceration noted. Neuro General: patient oriented x3, gait normal and moves all extremities Psych Speech and movement: Normal speech and movement present Assessment & Plan Assessment & Plan (1) Tinea cruris: Code(s): B35.6 - Tinea cruris Plan: Intertrigo with suspected candidal (fungal) superinfection History of Type 2 Diabetes Mellitus (predisposing factor) Recent antibiotic use may have contributed to fungal overgrowth Differential: contact dermatitis, bacterial infection, less likely STI (patient denies sexual activity). Topical Antifungal therapy: Econazole 1% cream applied twice daily for 2?4 weeks. Added Fluconazole 150 mg Qwkly for 6 weeks. Discontinue inappropriate steroid creams at this time. Keep area clean and dry. Monitor for signs of secondary infection. Follow-up: Return in 2 weeks for Skin Evaluation. Patient education: fungal infections are common in diabetics, proper hygiene and prompt treatment reduce recurrence. Medications: New fluconazole 150 mg PO QWEEK 6 tabs 2RF 6 weeks B35.6 - Tinea cruris econazole nitrate 1% 1 appl topical BID 85 grams 0RF 4 weeks B35.6 - Tinea cruris Coding Level of Care Code Est Pt Level 4 (72830) Diagnoses Tinea cruris B35.6 Time Spent (min) 20
== END 2025-02-13 12:59 | disposition home or self-care (01) ==
PROVIDERS: PCP Nurse Practitioner Family; Visit Provider Nurse Practitioner Family
DX: B35.6 Tinea cruris (principal)

== ENCOUNTER → 2025-02-13 12:01 | Outpatient (BNVA) | payer MEDICARE, SELFPAY | PROVIDERS: PCP Nurse Practitioner Family; Visit Provider Nurse Practitioner Family | DX: B35.6 Tinea cruris (principal) | CPT/HCPCS: 99212 ==

== ENCOUNTER 2025-02-28 07:36 | Outpatient (REF) | payer MEDICARE, SELFPAY ==
--- OUTSIDE RECORDS SUMMARY | 2024-05-03 06:00 | XMS_ITS ---
Author Organization [facility] marguerite [place] Address [address] [place] [address] Care Team Providers Care Destaticizer Feeder Name Role Phone Geovani Sears Primary Care Provider Unav ailable Crow Morris Unavailable [phone] Encounters Encounter Location Date Provider Diagnosis [address] [address] 05/03/2024 Crow Morris Plan Of Treatment Next Appt Details Provider Name:Crow Morris , 03/10/2025 01:45:00 PM, [address] [place] [address], [address], Progress Notes * Cody REBOLLAR WDOB: 3 (74 yo M)Acc No.[id number]:05/03/2024 Progress Note Patient: Cody LIRA Provider: Luzmaria Morris DPM :1950 A ge:74 Y S ex:Male Date:05/03/2024 Address:[address] [place] [address] jorge alberto [id number] Pcp:LOU Sun Subjective: * Chief Complaints: * * Medical History: Objective: * Vitals: Assessment: Plan: * Treatment: * Images: * The named appointment provid er may or may not be the originator of this progress note, and it is not deemed complete until electronically signed by the appointment provider. Sign off status: Pending * Provider: Luzmaria Morris DPM Date: 0 05/03/2024 Generated for Kirill kaplan/Merline on: 1 09:05 AM EST
--- NOTE | 2025-02-28 07:42 | EMG_ITS ---
Chief complaint: Pain in legs, issues with walking Referred by: Oneida Galarza MD Procedure done: NCS and EMG of bilateral lower extremity Bilateral peroneal and tibial motor studies were performed with F responses and tibial H reflexes. Bilateral superficial peroneal and sural sensory studies were performed and needle examination was performed. Findings: Motor distal latencies were moderately prolonged with mild slowing of conduction velocity. Motor amplitude were kjjy-wt-vsdhligdds reduced. Sural responses were absent. Superficial peroneal amplitudes were significantly diminished with moderate slowing of conduction velocity. F responses were somewhat delayed. Left tibial H-reflex was absent. Impression: Moderately severe, somewhat patchy, sensory motor peripheral neuropathy with features somewhat suggestive of demyelination and axonal loss Codin 84361 x2 MTDD
--- OUTSIDE RECORDS SUMMARY | 2025-02-28 09:05 | XMS_ITS | Encounter Summary ---
Author Organization [facility] Address [address] [facility] [address] [place] [address] Phone Care Team Providers Care Technical Sales Director Name Role Phone Geovani Samayoa BINDERY OPERATOR Primary Care Provider + Encounter Details Date Type Department Care Team (Latest Contact Info) Description 02/05/2023 Ancillary Orders [facility] [address] [place] [address] 3rd Floor, [address] [place] [address] MD [address] [facility], [facility] [address] [place] [address] [email or web address] Dyspnea, unspecified type (Primary Dx) [...] Description 04/18/2025 11:00 AM EST Office Visit [facility] [address] [facility] 3rd Floor, [address] [place] [address] MD [address] [facility], [address] [place] [address] [email or web address] documented as of this encounter Results * [...] promptly rebounded within 1 minute of recovery. us Bk St MD PFT ORDERABLES Final Result documented in this encounter Visit Diagnoses Diagnosis Dyspnea, unspecified type- Primary Dyspnea, unspecified type documented in this encounter Care Teams Technical Sales Director Relationship Specialty Start Date End Date Geovani Samayoa NP [address] [place] [address] PCP - General Family Medicine 01/09/22 documented as of this encounter Additional Source Comments The information contained in this document represents components of the legal health record. It is not the complete legal health record.[facility]
--- OUTSIDE RECORDS SUMMARY | 2025-02-28 09:05 | XMS_ITS | Encounter Summary ---
Author Organization [facility] Address [address] [facility] [address] [place] [address] Phone Care Team Providers Care Planer Off Bearer Name Role Phone Geovani Samayoa CHURN DRILL OPERATOR Primary Care Provider + Encounter Details Date Type Department Care Team (Late st Contact Info) Description 02/09/2023 Transcribe Orders [facility] [address] [place] [address] MD 22 [facility], [address] [place] [address] [email or web address] Social History Tobacco Use [...] Description 04/18/2025 11:00 AM EST Office Visit [facility] [address] [facility] 3rd Floor, [address] [place] [address] MD 22 [facility], [address] [place] [address] [email or web address] documented as of this encounter Visit Diagnoses Not on filedocumented in this encounter Care Teams Planer Off Bearer Relationship Specialty Start Date End Date Geovani Samayoa NP [address] [facility] [place] [address] PCP - General Family Medicine 01/09/22 documented as of this encounter Additional Source Comments The information contained in this document represents components of the legal health record. It is not the complete legal health record.[facility]
--- OUTSIDE RECORDS SUMMARY | 2025-02-28 09:06 | XMS_ITS | Encounter Summary ---
Author Organization [facility] Address [address] [facility] [address] [place] [address] Phone Care Team Providers Care Technical Information Specialist Name Role Phone Geovani Samayoa AVIONICS ENGINEER Primary Care Provider + Encounter Details Date Type Department Care Team (Late st Contact Info) Description 02/04/2023 Procedure Pass [facility], Ct Scan - [address] [address] Social History Tobacco Use Types Packs/Day Years [...] Description 04/18/2025 11:00 AM EST Office Visit [facility] [address] [place] [address] 3rd Floor, [address] [place] [address] MD [address] [place] [address], [address] [place] [address] [email or web address] documented as of this encounter Visit Diagnoses Not on filedocumented in this encounter Care Teams Technical Information Specialist Relationship Specialty Start Date End Date Geovani Samayoa NP [facility] [place] [address] PCP - General Family Medicine 01/09/22 documented as of this encounter Additional Source Comments The information contained in this document represents components of the legal health record. It is not the complete legal health record.[facility]
--- OUTSIDE RECORDS SUMMARY | 2025-02-28 09:06 | XMS_ITS | Encounter Summary ---
Author Organization [facility] Address [address] [place] [address] Phone Care Team Providers Care Game Breeding Farm Manager Name Role Phone Bk St MD Primary Care Provider [phone] Unknown, Unknown Primary Care Provider Geovani Sorenson NP Primary Care Provider + Encounter Details Date Type Department Care Team (Late st Contact Info) Description 07/10/2017 Ancillary Orders Virtual Department [address] [place] [address] MD 22 [facility], [address] [address] [email or web address] Atelectasis Social History Tobacco [...] Description 04/18/2025 11:00 AM EST Office Visit [facility] [address] [place] [address] 3rd Floor, [address] [place] [address] MD [address] [place] [address], [address] [address] (work) [email or web address] documented as of this encounter Results * [...] collapse documented in this encounter Care Teams Game Breeding Farm Manager Relationship Specialty Start Date End Date Bk St MD [address] [place] [address], [facility] [address] [place] [address] PCP - General Pulmonary Disease 07/13/17 01/07/21 Unknown, Unknown, PCP - General 01/08/21 01/08/22 Geovani Samayoa NP [facility] [place] [address] PCP - General Family Medicine 01/09/22 documented as of this encounter Additional Source Comments The information contained in this document represents components of the legal health record. It is not the complete legal health record.[facility]
--- OUTSIDE RECORDS SUMMARY | 2025-02-28 09:06 | XMS_ITS | Encounter Summary ---
Author Organization [facility] Address [address] [facility] [address] [place] [address] Phone Care Team Providers Care Turn Laster Name Role Phone Bk St MD Primary Care Provider [phone] Unknown, Unknown Primary Care Provider Geovani Sorenson NP Primary Care Provider + Encounter Details Date Type Department Care Team (Late st Contact Info) Description 07/10/2017 Procedure Pass [facility], Ct Scan - [address] [address] Social History Tobacco Use Types Packs/Day Years [...] Description 04/18/2025 11:00 AM EST Office Visit [facility] [address] [place] [address] 3rd Floor, [address] [place] [address] MD 22 [facility], [address] [place] [address] [email or web address] documented as of this encounter Visit Diagnoses Not on filedocumented in this encounter Care Teams Turn Laster Relationship Specialty Start Date End Date Bk St MD [facility], [address] [place] [address] [email or web address] PCP - General Pulmonary Disease 07/13/17 01/07/21 Unknown, Unknown, PCP - General 01/08/21 01/08/22 Geovani Samayoa NP [facility] [place] [address] PCP - General Family Medicine 01/09/22 documented as of this encounter Additional Source Comments The information contained in this document represents components of the legal health record. It is not the complete legal health record.[facility]
--- OUTSIDE RECORDS SUMMARY | 2025-02-28 09:06 | XMS_ITS | Patient Health Record ---
Author Organization [facility] Florentin marguerite Kyle Address [address] [place] [address] Care Team Providers Care Single Stayer Operator Name Role Phone Geovani Sears Primary Care Provider Unav ailable Crow Morris Unavailable [phone] Allergies No Known Allergies Results Component Value [...] Problem Acquired hammer toe of right foot (5222500340797660 ) Other hammer toe(s) (acquired), right foot (M20.41) Active confirmed Response to treatment, Improvemen t Problem Acquired hammer toe of left foot (4707979679765886 ) Other hammer toe(s) (acquired), left foot (M20.42) Active confirmed Response to treatment, Improvemen t Problem Polyneuropathy due to type 2 diabetes mellitus (062042046) Type 2 diabetes mellitus with diabetic polyneuropathy (E11.42) Active confirmed Vital Signs Blood pressure diastolic 65 mm Hg 11/18/2024 Height 6 ft in 11/18/2024 Blood pressure systolic 126 mm Hg 11/18/2024 Weight 245 lbs 11/18/2024 BMI 33.22 kg/m2 11/18/2024 Procedures Procedure Date Ordered Date Performed Result Body Sit e 41644-AMNCWRV NAIL, 6 OR MORE 05/13/2024 N/A 56111-ADSA SKIN LESIONS, 2 TO 4 05/13/2024 N/A 64363- Removal of Foreign Body, Subcut 05/13/2024 N/A 37647-TYTENYG NAIL, 6 OR MORE 08/16/2024 N/A 97087-VRRT SKIN LESIONS, 2 TO 4 08/16/2024 N/A 15515-FDEBEGI NAIL, 6 OR MORE 11/18/2024 N/A 39831-LYAF SKIN LESIONS, 2 TO 4 11/18/2024 N/A Encounters Encounter Location Date Provider Diagnosis [address] [address] 05/13/2024 Crow Morris Type 2 diabetes mellitus with diabetic polyneuropathy E11.42 ; Tinea unguium B35.1 ; Other hammer toe(s) (acquired), right foot M20.41 ; Other hammer toe(s) (acquired), left foot M20.42 and Puncture wound with foreign body, right foot, initial encounter S91.341A [address] [address] 08/16/2024 Crow Morris Type 2 diabetes mellitus with diabetic polyneuropathy E11.42 and Tinea unguium B35.[address] [address] 11/18/2024 Crow Morris Type 2 diabetes mellitus with diabetic polyneuropathy E11.42 and Tinea unguium B35.[address] [address] 05/03/2024 Crow Alexandra Assessments Encounter Date Diagnosis (ICD Code) Assessment Notes Treatment Notes Treatment Clinical Notes Section Notes 05/13/2024 Tinea unguium (ICD-10 - B35.1) 08/16/2024 [...] initial encounter (ICD-10 - S91.341A) 05/13/2024 Other 08/16/2024 Other 11/18/2024 Other Plan Of Treatment Pending Test Test Name Order Date 93444-WRNMYVE NAIL, 6 OR MORE 11/03/2023 57538-YGTONQX NAIL, 6 OR MORE 02/02/2024 38857-AVIYZQY NAIL, 6 OR MORE 05/13/2024 94394-PZSFIKZ NAIL, 6 OR MORE 08/16/2024 21919-BOSYDQD NAIL, 6 OR MORE 11/18/2024 28014-Vjoofsov Plate 11/03/2023 68106- Debride <25 sq cm 07/23/2018 24210 I&D ABSCESS- SIMPLE,SINGLE 019 97553-RUUA SKIN LESIONS, 2 TO 4 11/03/19 24 09057-MQYD SKIN LESIONS, 2 TO 4 05/14/19 25 63843-TVZB SKIN LESIONS, 2 TO 4 02/02/20 24 67402-NGCQ SKIN LESIONS, 2 TO 4 11/19/19 25 00632-YKEF SKIN LESIONS, 2 TO 4 08/17/19 37749- Removal of Foreign Body, Subcut 0 05/13/2024 Next Appt Details Provider Name:Crow Morris , 03/10/2025 01:45:00 PM, [address] [facility], [place], [address], Insurance Providers Payer Name Payer Address Payer Phone Subscriber Number Group Number Insured Name Patient Relationship to Insured Coverage Start Date Coverage End Date Medicare National Govt New [facility]III[facility] [address] [place] [address] [id number] Cody Rebollar Self - patient is the insured 7 [employer] [address] [place] [address] [phone] [id number] Cody Rebollar Self - patient is the [...] Hernia Repair 2000 Hospitalization History Reason Date(Month/Year) C- Throwing up blood 04/2023
--- OUTSIDE RECORDS SUMMARY | 2025-02-28 09:06 | XMS_ITS | Encounter Summary ---
Author Organization [facility] Address [address] [place] [address] Phone Care Team Providers Care Volunteer Services Director Name Role Phone Geovani Samayoa LAST REPAIRER HELPER Primary Care Provider + Encounter Details Date Type Department Care Team (Late st Contact Info) Description 02/16/2024 Procedure Pass [facility], Ct Scan - [address] [address] Social History Tobacco Use Types Packs/Day Years [...] Description 04/18/2025 11:00 AM EST Office Visit [facility] [address] [place] [address] [address]rd Floor, [address] [place] [address] MD [address] [place] [address], [address] [place] [address] [email or web address] documented as of this encounter Visit Diagnoses Not on filedocumented in this encounter Care Teams Volunteer Services Director Relationship Specialty Start Date End Date Geovani Samayoa NP [facility] [place] [address] PCP - General Family Medicine 01/09/22 documented as of this encounter Additional Source Comments The information contained in this document represents components of the legal health record. It is not the complete legal health record.[facility]
--- OUTSIDE RECORDS SUMMARY | 2025-02-28 09:06 | XMS_ITS | Clinical Summary ---
Author Organization [facility] Address [address] [place] [address] [place] [address] Phone Care Team Providers Care Transitional Nurse Name Role Phone Geovani Samayoa DIRECTOR OF PROCUREMENT Primary Care Provider + Allergies No known [...] Active ferrous sulfate 325 mg (65 mg tribe iron) tablet Take 325 mg by mouth [...] needed. 12 g 3 09/29/19 24 Active ezetimibe (ZETIA) 10 mg tablet Take 1 tablet by mouth every morning. 08/25/19 25 Active verapamiL (VERELAN) 240 MG 24 hr capsule Oral for 90 Active b complex vitamins capsule as directed Orally Active fluticasone-u meclidin-citlaly nter (TRELEGY ELLIPTA) 100-62.5-25 mcg inhalation powder USE 1 INHALATION BY MOUTH DAILY 3 each 3 10/26/19 25 Active COMBIVENT RESPIMAT 20-100 mcg/actuation MistIndicatio ns:Medication refill INHALE 1 INHALATION BY MOUTH INTO THE LUNGS EVERY 6 HOURS NEEDED 12 g 3 02/17/20 25 Active ipratropium-a lbuteroL (COMBIVENT RESPIMAT) 20-100 mcg/actuation MistIndicatio ns:Medication refill Inhale 1 puff into the lungs every 6 (six) hours as needed. 12 g 3 10/21/19 24 2024 Discontinued Active Problems Problem Noted Date Diagnosed Date Rheumatic aortic stenosis 09/15/2019 COPD type B 09/15/2019 Encounters Date Type Department Care Team Description 02/14/2025 Refill [facility] [address], [address] [place] [address] MD Medication Refill 01/19/2025 Telephone [facility] [address], [address] [place] [address] MD from Last 3 Months [...] Description 04/18/2025 11:00 AM EST Office Visit [facility] [address] [place] [address] [address]rd Floor, [address] [place] [address] MD [address] [facility], [address] [place] [address] [email or web address] Health Maintenance Due Date Last Done Comments [...] (#1) 2024 , 11/24/2018, 12/31/2017 COVID-19 VACCINE (2024-2 6 season) 2024 05/17/2020 HEPATITIS A VACCINES [...] file Insurance MEDICARE PART A & B [facility] MEDEX SUPPLEMENT MEDICARE PART A & B [employer] MEDEX SUPPLEMENT MEDICARE PART A & B [employer] MED[employer] SUPPLEMENT MEDICARE PART A & B [employer] MEDEX SUPPLEMENT MEDICARE PART A & B [employer] MEDEX SUPPLEMENT MEDICARE PART A & B [employer] MEDEX SUPPLEMENT MEDICARE PART A & B [employer] MEDEX SUPPLEMENT MEDICARE PART A & B [employer] MED[employer] SUPPLEMENT MEDICARE PART A & B [employer] MEDEX SUPPLEMENT Care Teams Transitional Nurse Relationship Specialty Start Date End Date Geovani Samayoa NP [address] [place] [address] PCP - General Family Medicine 01/09/22 Additional Source Comments The information contained in this document represents components of the legal health record. It is not the complete legal health record.[facility]
--- OUTSIDE RECORDS SUMMARY | 2025-02-28 09:06 | XMS_ITS | Patient Health Record ---
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 Name Role Phone PAOLO SAMAYOA Primary Care Provider Raji Salas Unavailable [phone] Allergies Allergen (clinical drug ingredient) Drug/Non Drug Allergy documented on EMR Reaction Allergy Type Onset Date Status Aloe Aftersun Unknown Drug Allergy Act alejandro Results Component Value Reference Range Flag Notes Complete Blood Count Auto Di ff Reviewed date:05/05/2024 10:11:31 AM Interpretation: Performing Lab:[facility], [address] [place] [phone] Notes/Report: White Blood Count 10.5 4.8-10.8 X10*3/uL [...] ff Reviewed date:05/05/2024 10:10:45 AM Interpretation: Performing Lab:[facility], [address] [place] [phone] Notes/Report: White Blood Count 8.9 4.8-10.8 X10*3/uL [...] Pathology Reviewed date:05/09/2024 06:04:55 PM Interpretation: Performing Lab:[facility], [address] [place] [phone] Notes/Report: CT angio abdomen Reviewed date:05/05/2024 10:11:09 AM Interpretation: Performing Lab: Notes/Report: [address] [address] [address] Scan Report Signed with Addenda Patient: Irene Rebollar MR#: [id number] 63 : 1950 Acct:[id number] Age/Sex: 74 / M ADM Date: 05/03/24 Loc: .S3 372-[address]: Cristiano Serrano MD Ordering Physician: Raji Tellez MD Date of Service: 05/04/24 Procedure(s): CT angio abdomen Accession Number(s): [id number] cc: Paolo Samayoa [facility]-; Raji Tellez MD Report Number: [id number]: Total DLP = 2273.00 mGy-cm ADDENDUM This [...] in OV> 05/04/241845 DD/ 43 TD/TT: 05/04/241843 Metallographer: Complete Blood Count Auto Di ff Reviewed date:05/05/2024 05:48:11 PM Interpretation: Performing Lab:[facility], [address] [place] [phone] Notes/Report: White Blood Count 8.3 4.8-10.8 X10*3/uL [...] Gel Reviewed date:05/05/2024 06:02:20 PM Interpretation: Performing Lab:[facility], [address] [place] [phone] Notes/Report: Hold Green Gel See Note Specimen held untested for 24 hours; Call to request Chemistry testing. Reason For Referral No Information Medications Medication SIG (Take, Route, Frequency, Duration) Notes Start Date End Date Status Lasix 40 MG Tablet 1 tablet Orally Once a day; Duration: 30 day(s) Active Vitamin D (Ergocalciferol) 80085 UNIT Capsule as directed Oral twice a [...] Problem Screening for malignant neoplasm of colon (654719440) Encounter for screening for malignant neoplasm of colon (Z12.11) Active confirmed Problem History of adenomatous polyp of colon (898482500) History of adenomatous polyp of colon (Z86.010) Active confirmed Problem Iron deficiency (37357066) Iron deficiency (E61.1) Active confirmed Problem Diverticular disease of colon (322641040) Diverticulosis of large intestine without hemorrhage (K57.30) Active confirmed Problem Preprocedural examination (918014255173743) Preprocedural examination (Z01.818) Active confirmed Problem Gastroesophageal reflux disease (868279481) Gastroesophageal reflux disease, esophagitis presence not specified [...] OF [place] [address] [place] [address] [id number] 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
== END 2025-02-28 07:37 | disposition home or self-care (01) ==
LOC: HO.NEURO 07:36
PROVIDERS: PCP Nurse Practitioner Family; Visit Provider Psychiatry & Neurology Neurology
DX: G62.89 Other specified polyneuropathies (principal); M50.90 Cervical disc disorder, unspecified, unspecified cervical region; M79.604 Pain in right leg; M79.605 Pain in left leg; R26.2 Difficulty in walking, not elsewhere classified
CPT/HCPCS: 95886; 95911

== ENCOUNTER → 2025-02-28 07:42 | Outpatient (BNV) | payer MEDICARE, SELFPAY | PROVIDERS: PCP Nurse Practitioner Family; Visit Provider Psychiatry & Neurology Neurology | DX: G62.89 Other specified polyneuropathies (principal) | CPT/HCPCS: 95886; 95910 ==